=== PATIENT | male | born 1950 | race Two or more races ===

== ENCOUNTER 2017-10-03 17:27 | Emergency (ER) | payer MEDICAID ==
[~2017-10-03] VITALS: Ht 182.9 cm; Wt 81.6 kg
[~2017-10-03 17:27] MED LIST: ACETAMINOP160 MG/54 ORAL; ARTIFICIAL TEAR15 ML BOTH EYES; BISACODYL5 MG RECTAL; CEPHALEXIN500 MG ORAL; CRANBERRY450 M3 PO; DOCUSATE SODIU100 MG ORAL; DOXYCYCLINE MO100 MG ORAL; ENEMA133 M1 RC; ISOSORBIDE MONO60 M1 PO; JANUVIA25 MG ORAL; LANTUS SOL100 UNIT/1 SUBQ; METOPROLOL TART25 MG ORAL; MILK OF MA2400 MG/10 ORAL; MULTIVITAMINS1 EAC8 ORAL; NEXIUM40 MG ORAL; NORCO 5-325 TA1 EACH ORAL; NORVASC10 MG ORAL; OYSTER SHELL 21 EAC1 PO; PRED FORTE1 ML OP; SENNA8.6 M2 PO; VIBRAMYCIN100 MG ORAL; VITAMIN C500 M1 ORAL; ZOFRAN4 M3 ORAL
[2017-10-03 17:33] VITALS: BP 96/50
[2017-10-03 18:26] LABS: HEMATOCRIT 32.4 % (42.0-52.0); HEMOGLOBIN 10.1 G/DL (14.2-18.0); MEAN CORPUSCULAR VOLUME 87 FL (80-99); PLATELET COUNT 227 K/UL (150-450); RED CELL DISTRIBUTION WIDTH 14.2 % (11.6-14.8)
[2017-10-03 18:27] LABS: NEUTROPHILS % (AUTO) 86.4 % (45.0-75.0)
[2017-10-03 18:28] LABS: EOSINOPHILS % (AUTO) 3.2 % (0.0-3.0); MONOCYTES % (AUTO) 3.5 % (1.0-10.0)
[2017-10-03 18:46] LABS: ANION GAP 16 mmol/L (5-15); BLOOD UREA NITROGEN 30 mg/dL (7-18); CALCIUM 7.7 MG/DL (8.5-10.1); CARBON DIOXIDE 13 MMOL/L (21-32); CHLORIDE 109 MMOL/L (98-107); CREATININE 3.6 MG/DL (0.55-1.30); POTASSIUM 4.2 MMOL/L (3.5-5.1); SODIUM 138 MMOL/L (136-145)
[2017-10-03 18:50] VITALS: BP 142/89
[2017-10-03 18:54] LABS: ALANINE AMINOTRANSFERASE 14 U/L (12-78); ALBUMIN 1.8 G/DL (3.4-5.0); ALBUMIN/GLOBULIN RATIO 0.3 (1.0-2.7); ALKALINE PHOSPHATASE 111 U/L (46-116); ASPARTATE AMINO TRANSFERASE 17 U/L (15-37); BILIRUBIN,TOTAL 0.2 MG/DL (0.2-1.0)
[2017-10-03] MEDS ORDERED: levETIRAcetam 500mg/NS100ml 100 ML IVPB ONE (20:00)
[2017-10-03 21:13] VITALS: BP 160/81
[2017-10-03 21:35] VITALS: BP 160/81
--- NOTE | 2017-10-04 08:25 | Diagnostic Imaging Report ---
Indications: Altered mental status Technique: Spiral acquisitions obtained through the brain. Angled axial and coronal 5 x 5 mm slices were reconstructed. Total dose length product 1400.72 mGycm. CTDI vol(s) 70.38 mGy. Dose reduction achieved using automated exposure control Comparison: None. Findings: There is some image degradation due to motion artifact. There is encephalomalacia of the right parasagittal posterior parietal lobe and occipital lobe. There is age-related enlargement of the ventricles and extra-axial CSF spaces. There is periventricular deep white matter low-attenuation, consistent with chronic small vessel ischemic change. Normal paulino-white differentiation otherwise. No acute intracranial hemorrhage or edema. No mass effect or midline shift. There is evidence of prior bilateral cataract surgery. The bilateral sphenoid and ethmoid sinuses demonstrate mucosal thickening. The mastoids are clear. The calvarium is intact. 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 The CT scanner at [facility] is accredited by the [employer] and the scans are performed using protocols designed to limit radiation exposure to as low as reasonably achievable to attain images of sufficient resolution adequate for diagnostic evaluation.
--- NOTE | 2017-10-04 16:06 | Cardiology Report ---
APPROVED REPORT EKG Measurement Heart [id number] Normal sinus rhythm Nonspecific T wave abnormality Prolonged QT Abnormal ECG
--- NOTE | 2017-10-05 07:32 | Emergency Room Report ---
History of Present Illness General Chief Complaint: Seizure Source: Medical Record Present Illness HPI Patient is a 67-year-old male brought in by EMS for seizure activity. Patient a prior history of seizure disorder and CVA. The patient was brought in by EMS. He was given Versed prior to arrival. Patient had previously been on seizure medications. He had not been febrile. History is limited by patient's mental status. Allergies: Coded Allergies: No Known Allergies (Unverified , 09/25/17) Patient History Past Medical History: see triage record Reviewed Nursing Documentation: PMH: Agreed; PSxH: Agreed Nursing Documentation-PMH Past Medical History: No History, Except For Hx Cardiac Problems: Yes - AFIB Hx Hypertension: Yes Hx COPD: Yes Hx Diabetes: Yes Hx Cancer: No Hx Gastrointestinal Problems: Yes - GERD Hx Neurological Problems: No Review of Systems All Other Systems: limited - by poor historian Physical Exam Vital Signs Date Time Temp Pulse Resp B/P (MAP) Pulse Ox O2 Delivery O2 Flow Rate FiO2 10/03/17 17:23 99.3 116 20 133/66 100 Ambu-Bag 15.0 99.3 Sp02 EP Interpretation: reviewed, normal General Appearance: normal inspection, no apparent distress, alert, Chronically Ill Head: atraumatic ENT: normal ENT inspection, hearing grossly normal, normal voice Neck: normal inspection, full range of motion, supple, no bony tend Respiratory: normal inspection, lungs clear, normal breath sounds, no respiratory distress, no retraction, no wheezing Cardiovascular #1: regular rate, rhythm, no edema Gastrointestinal: normal inspection, normal bowel sounds, non tender, soft, no guarding, no hernia Genitourinary: no CVA tenderness Musculoskeletal: normal inspection, back normal, normal range of motion Neurologic: normal inspection, alert, responsive, motor weakness - right upper extremity, right facial droop. Psychiatric: normal inspection, judgement/insight normal, mood/affect normal Skin: normal inspection, normal color, no rash Medical Decision Making Diagnostic Impression: Primary Impression: Epileptic seizure, generalized ER Course Patient presented for seizure. Differential diagnosis included CVA, cysticercosis, electrolyte abnormality, mass lesion, or cranial hemorrhage.Because of complexity of patient's case laboratory testing and imaging studies were ordered. EKG interpreted by me showed normal sinus rhythm without acute ST or T wave changes. QT interval was prolonged. the patient was given IV Keppra. patient gradual improvement in his mental status.Patient was discharged back to [facility]. CT of the head read by radiology showed no acute changes. Nursing staff were advised return precautions. The patient was transferred home by ambulance. Labs Test 10/03/17 17:59 White Blood Count 10.0 K/UL (4.8-10.8) Red Blood Count 3.70 M/UL (4.70-6.10) Hemoglobin 10.1 G/DL (14.2-18.0) Hematocrit 32.4 % (42.0-52.0) Mean Corpuscular Volume 87 FL (80-99) Mean Corpuscular Hemoglobin 27.4 PG (27.0-31.0) Mean Corpuscular Hemoglobin Concent 31.3 G/DL (32.0-36.0) Red Cell Distribution Width 14.2 % (11.6-14.8) Platelet Count 227 K/UL (150-450) Mean Platelet Volume 7.3 FL (6.5-10.1) Neutrophils (%) (Auto) 86.4 % (45.0-75.0) Lymphocytes (%) (Auto) 6.0 % (20.0-45.0) Monocytes (%) (Auto) 3.5 % (1.0-10.0) Eosinophils (%) (Auto) 3.2 % (0.0-3.0) Basophils (%) (Auto) 1.0 % (0.0-2.0) Sodium Level 138 MMOL/L (136-145) Potassium Level 4.2 MMOL/L (3.5-5.1) Chloride Level 109 MMOL/L (98-107) Carbon Dioxide Level 13 MMOL/L (21-32) Anion Gap 16 mmol/L (5-15) Blood Urea Nitrogen 30 mg/dL (7-18) Creatinine 3.6 MG/DL (0.55-1.30) Estimat Glomerular Filtration Rate 17.0 mL/min (>60) Glucose Level 203 MG/DL (74-106) Calcium Level 7.7 MG/DL (8.5-10.1) Total Bilirubin 0.2 MG/DL (0.2-1.0) Aspartate Amino Transf (AST/SGOT) 17 U/L (15-37) Alanine Aminotransferase (ALT/SGPT) 14 U/L (12-78) Alkaline Phosphatase 111 U/L (46-116) Total Protein 7.7 G/DL (6.4-8.2) Albumin 1.8 G/DL (3.4-5.0) Globulin 5.9 g/dL Albumin/Globulin Ratio 0.3 (1.0-2.7) Serum Alcohol < 3 mg/dL Last Vital Signs Date Time Temp Pulse Resp B/P (MAP) Pulse Ox O2 Delivery O2 Flow Rate FiO2 10/03/17 21:35 112 25 160/81 100 Room Air 10/03/17 21:13 99.3 99.3 10/03/17 17:23 15.0 Status: improved Disposition: [facility] Condition: Stable Referrals: NON PHYSICIAN (PCP) Patient Instructions: Seizure, Adult Bryant Srinivasan Oct 05, 2017 07:32
== END 2017-10-03 21:35 ==
LOC: EDBD 17:27 → EMR 18:46
DX: G40.409 Other generalized epilepsy and epileptic syndromes, not intractable, without status epilepticus (principal); J44.9 Chronic obstructive pulmonary disease, unspecified; I48.91 Unspecified atrial fibrillation; I10 Essential (primary) hypertension; K21.9 Gastro-esophageal reflux disease without esophagitis
CPT/HCPCS: 36415; 70450; 80053; 80299; 80329; 82962; 85025; 93005; 96361; 96374; 99284; J1953

== ENCOUNTER 2019-02-05 22:31 | Inpatient (IN) | payer MEDICAID ==
[~2019-02-05] VITALS: Ht 160 cm; Wt 48.6 kg
[2019-02-05 22:45] VITALS: BP 124/70
[2019-02-05] MEDS ORDERED: Albuterol ud Inhalation HHN ONE (22:45)
[2019-02-05] MEDS ORDERED: Ipratropium 0.02% Inh Soln 2.5ml UD HHN ONE (22:45)
[2019-02-05] MEDS ORDERED: Cefepime HCl 2 GM in NS 110 ML IV SCH (22:45)
[2019-02-05] MEDS ORDERED: Solu-MEDROL 125mg Inj IVP ONE (22:45)
[2019-02-05] MEDS ORDERED: Vancomycin 1 GM in NS 275 ML IV ONE (22:45)
--- NOTE | 2019-02-05 22:45 | NUR ---
ED Nurse Note: Patient was BIBA from [facility] due to SOB, resp disstress. Patient arrived with NC, O2 sat was 88%. AAO x4, VSS at this time, skin is dry warm to touch. Patient presented with labored breathing, intercoastal retraction, SOB. ER MD by bed side.
--- NOTE | 2019-02-05 22:55 | NUR ---
RESPIRATORY NOTE: Pt BIBA to ED c/o SOB on 4L NC. Pt placed on BiPAP 10/5, backup rate 14, 40% per MD Fidelia. Pt getting breathing tx at this time. Pt is alert/awake, follows commands. B/S genevieve. expiratory wheezing on lower lobes. Pt on a Facial mask, skin intact, no redness/breakdowns noted. Foam tape applied on pt's nosebridge/cheeks/chin to prevent any mask irritations. BiPAP plugged into red outlet, alarms on & audible. Pt tolerating well, will continue to monitor pt.
[2019-02-05] MEDS: Albuterol ud Inhalation HHN SCH ×3 (23:09→23:47)
[2019-02-05] MEDS: Ipratropium 0.02% Inh Soln 2.5ml UD HHN SCH ×3 (23:09→23:47)
--- NOTE | 2019-02-05 23:24 | Emergency Room Report ---
History of Present Illness General Chief Complaint: Dyspnea/Respdistress Source: Medical Record Present Illness HPI 68-year-old male history of hypertension, hyperlipidemia, diabetes, bilateral amputations, resents with acute shortness of breath, patient was diagnosed with pneumonia in outside hospital patient presents acutely short of breath for the past 3 hours, he denies any aggravating or relieving factors, he is a former smoker patient has difficulty giving a proper history secondary to acute shortness of breath Allergies: Coded Allergies: No Known Allergies (Unverified , 09/25/17) Patient History Limited by: medical condition - Patient is acutely short of breath unable to give full sentences Past Medical History: see triage record Reviewed Nursing Documentation: PMH: Agreed; PSxH: Agreed Nursing Documentation-PMH Hx Cardiac Problems: Yes - AFIB, HEART FAILURE, ANEMIA, ATHEROSCLEROTIC HEART DISEASE, Hx Hypertension: Yes Hx COPD: Yes Hx Diabetes: Yes - DM2 Hx Cancer: No Hx Gastrointestinal Problems: Yes - GERD, ETOH ABUSE Hx Neurological Problems: No - CKD, ARTIFICIAL OPENINGS OF URINARY TRACT Review of Systems All Other Systems: limited - Clinical condition, patient in acute respiratory distress Physical Exam Vital Signs Date Time Temp Pulse Resp B/P (MAP) Pulse Ox O2 Delivery O2 Flow Rate FiO2 02/05/19 22:28 99.0 80 24 124/70 (88) 98 Nasal Cannula 4.0 02/05/19 22:50 40 Sp02 EP Interpretation: reviewed, normal General Appearance: alert, moderate distress Head: normocephalic, atraumatic Eyes: bilateral eye PERRL, bilateral eye EOMI ENT: uvula midline, moist mucus membranes Neck: supple, thyroid normal, supple/symm/no masses Respiratory: accessory muscle use, wheezing - Severe wheezing Cardiovascular #1: normal peripheral pulses, regular rate, rhythm, no edema, no gallop, no murmur Gastrointestinal: non tender, soft, no guarding, no rebound Musculoskeletal: normal inspection Neurologic: alert, oriented x3 Psychiatric: mood/affect normal Skin: no rash, warm/dry Procedures Critical Care Time Critical Care Time Given the critical condition in which the patient arrived, the patient was immediately assessed by myself and the nurse, and cardiac monitoring initiated due to the potential for rapid decompensation of the patient's clinical condition. During the course of the patient's stay, I spent a considerable amount of time at the bedside performing serial re-evaluations of the patient's hemodynamic and clinical status because of the recognized potential threat to life or limb in this condition. I then had a chance to review not only all of the available current laboratory and radiographic studies obtained today, but I also reviewed old records available to me at the time. Additionally, any ancillary information available including blood bank custodian records were reviewed. Sequential vital signs were obtained. Critical Care time of 35 minutes was performed exclusive of billable procedures. Respiratory distress, requiring BiPAP, labs, patient being resuscitated, Medical Decision Making Diagnostic Impression: Primary Impression: Respiratory distress Additional Impressions: COPD with exacerbation Pneumonia MARY (acute kidney injury) Elevated troponin Anemia ER Course 68-year-old male presents in acute respiratory distress, recently diagnosed with pneumonia, patient started immediately on BiPAP for respiratory distress, patient improved, duo nebs were started, due to wheezing, wheezing significantly reduced on reevaluation, broad-spectrum antibiotics were started, he is coming from a skilled nursing, patient also found to have a hemoglobin of 6.4 , blood transfusion consent obtained, will send a type and screen, will start transfusion, patient makes his own urine patient may need dialysis in the future. Evaluation 11:45 PM, patient feeling better on BiPAP Patient admitted to Dr. Noriega on panel Blood transfusion started Laboratory Tests Test 02/05/19 23:10 02/05/19 23:50 02/06/19 00:37 White Blood Count 14.4 K/UL (4.8-10.8) H Red Blood Count 2.27 M/UL (4.70-6.10) L Hemoglobin 6.4 G/DL (14.2-18.0) *L Hematocrit 19.4 % (42.0-52.0) L Mean Corpuscular Volume 86 FL (80-99) Mean Corpuscular Hemoglobin 28.0 PG (27.0-31.0) Mean Corpuscular Hemoglobin Concent 32.8 G/DL (32.0-36.0) Red Cell Distribution Width 14.2 % (11.6-14.8) Platelet Count 195 K/UL (150-450) Mean Platelet Volume 7.6 FL (6.5-10.1) Neutrophils (%) (Auto) % (45.0-75.0) Lymphocytes (%) (Auto) % (20.0-45.0) Monocytes (%) (Auto) % (1.0-10.0) Eosinophils (%) (Auto) % (0.0-3.0) Basophils (%) (Auto) % (0.0-2.0) Prothrombin Time 11.2 SEC (9.30-11.50) Prothrombin Time INR 1.1 (0.9-1.1) PTT 32 SEC (23-33) Urine Color Pale yellow Urine Appearance Clear Urine pH 5 (4.5-8.0) Urine Specific [place] 1.015 (1.005-1.035) Urine Protein 4+ (NEGATIVE) H Urine Glucose (UA) 3+ (NEGATIVE) H Urine Ketones Negative (NEGATIVE) Urine Blood 3+ (NEGATIVE) H Urine Nitrite Negative (NEGATIVE) Urine Bilirubin Negative (NEGATIVE) Urine Urobilinogen Normal MG/DL (0.0-1.0) Urine Leukocyte Esterase Negative (NEGATIVE) Urine RBC 5-10 /HPF (0 - 0) H Urine WBC 0-2 /HPF (0 - 0) Urine Squamous Epithelial Cells None /LPF (NONE/OCC) Urine Bacteria Few /HPF (NONE) Sodium Level 145 MMOL/L (136-145) Potassium Level 3.9 MMOL/L (3.5-5.1) Chloride Level 110 MMOL/L (98-107) H Carbon Dioxide Level 10 MMOL/L (21-32) L Anion Gap 25 mmol/L (5-15) H Blood Urea Nitrogen 95 mg/dL (7-18) H Creatinine 9.3 MG/DL (0.55-1.30) H Estimate Glomerular Filtration Rate 5.7 mL/min (>60) Glucose Level 121 MG/DL (74-106) H Lactic Acid Level 2.60 mmol/L (0.4-2.0) H Pending Calcium Level 7.6 MG/DL (8.5-10.1) L Total Bilirubin 0.7 MG/DL (0.2-1.0) Direct Bilirubin 0.2 MG/DL (0.0-0.3) Aspartate Amino Transferase (AST) 51 U/L (15-37) H Alanine Aminotransferase (ALT) 42 U/L (12-78) Alkaline Phosphatase 133 U/L (46-116) H Total Creatine Kinase 245 U/L (26-308) Creatine Kinase MB 9.6 NG/ML (0.0-3.6) H Creatine Kinase MB Relative Index 3.9 Troponin I 0.238 ng/mL (0.000-0.056) Pro-B-Type Natriuretic Peptide > 53155 pg/mL (0-125) H Total Protein 7.5 G/DL (6.4-8.2) Albumin 2.8 G/DL (3.4-5.0) L Globulin 4.7 g/dL Albumin/Globulin Ratio 0.6 (1.0-2.7) L Lipase 374 U/L (73-393) Venous Blood pH 7.160 Venous Blood Partial Pressure CO2 22.6 Venous Blood Partial Pressure O2 43.9 Venous Blood HCO3 7.9 Venous Blood Total Carbon Dioxide 22.6 Venous Bld O2 Saturation (Measured) 43.9 Venous Blood Oxygen Saturation 65.3 Venous Blood Base Excess -19.1 Methemoglobin 1.0 Sodium (Blood Gas) EKG Diagnostic Results EKG Time: 22:30 EP Interpretation: NSR Rate 81, QTc 490, no acute ST elevations, left axis deviation Rate: normal Rhythm: NSR ST Segments: no acute changes Rhythm Strip Diag. Results Rhythm Strip Time: 23:23 EP Interpretation: yes Rate: 80 Rhythm: NSR, no PVC's, no ectopy Chest X-Ray Diagnostic Results Chest X-Ray Diagnostic Results : Chest X-Ray Ordered: Yes # of Views/Limited/Complete: 1 View Indication: Shortness of Breath Interpretation: other - Right lobe pneumonia Impression: Other - Right lobe pneumonia Electronically Signed by: Lavon Mistry MD Last Vital Signs Date Time Temp Pulse Resp B/P (MAP) Pulse Ox O2 Delivery O2 Flow Rate FiO2 02/05/19 23:09 79 23 100 Bi-Pap 30 02/05/19 22:50 4.0 02/05/19 22:28 99.0 124/70 (88) Disposition: ADMITTED INPATIENT Condition: Serious Referrals: Grzegorz Choi MD (PCP) Lavon Mistry MD Feb 05, 2019 23:24
[2019-02-05 23:31] LABS: APPEARANCE,URINE CLEAR; BILIRUBIN, URINE NEGATIVE (NEGATIVE); COLOR,URINE PALE YELLOW; GLUCOSE, URINE (UA) 3+ (NEGATIVE); KETONES,URINE NEGATIVE (NEGATIVE); LEUKOCYTE ESTERASE ,URINE NEGATIVE (NEGATIVE); NITRITE,URINE NEGATIVE (NEGATIVE); PH,URINE 5 (4.5-8.0); PROTEIN,URINE 4+ (NEGATIVE); UROBILINOGEN,URINE NORMAL MG/DL (0.0-1.0)
[2019-02-05 23:37] LABS: ANION GAP 25 mmol/L (5-15); BLOOD UREA NITROGEN 95 mg/dL (7-18); CALCIUM 7.6 MG/DL (8.5-10.1); CARBON DIOXIDE 10 MMOL/L (21-32); CHLORIDE 110 MMOL/L (98-107); CREATININE 9.3 MG/DL (0.55-1.30); POTASSIUM 3.9 MMOL/L (3.5-5.1); SODIUM 145 MMOL/L (136-145)
[2019-02-05 23:40] LABS: INR 1.1 (0.9-1.1)
[2019-02-05] MEDS ORDERED: Vancomycin 1 GM in NS 275 ML IVPB ONE (23:45)
[2019-02-05 23:49] LABS: ALANINE AMINOTRANSFERASE 42 U/L (12-78); ALBUMIN 2.8 G/DL (3.4-5.0); ALBUMIN/GLOBULIN RATIO 0.6 (1.0-2.7); ALKALINE PHOSPHATASE 133 U/L (46-116); ASPARTATE AMINO TRANSFERASE 51 U/L (15-37); BILIRUBIN,DIRECT 0.2 MG/DL (0.0-0.3); BILIRUBIN,TOTAL 0.7 MG/DL (0.2-1.0); CKMB 9.6 NG/ML (0.0-3.6); CREATINE KINASE 245 U/L (26-308)
[2019-02-05 23:53] LABS: HEMATOCRIT 19.4 % (42.0-52.0); MEAN CORPUSCULAR VOLUME 86 FL (80-99); PLATELET COUNT 195 K/UL (150-450); RED BLOOD COUNT 2.27 M/UL (4.70-6.10); RED CELL DISTRIBUTION WIDTH 14.2 % (11.6-14.8); WHITE BLOOD COUNT 14.4 K/UL (4.8-10.8)
[2019-02-06] VITALS (62 sets, daily range): BP systolic 35–162; BP diastolic 12–116
[2019-02-06] MEDS ORDERED: Vancomycin 1gm vial IVPB ONE (00:06)
[2019-02-06] MEDS ORDERED: Vancomycin 1 GM in NS 275 ML IVPB ONE (00:15)
[2019-02-06 00:16] LABS: HEMOGLOBIN 6.4 G/DL (14.2-18.0)
[2019-02-06] MEDS ORDERED: ATROPINE SU1 MG/1 M1 IJ (01:24)
[2019-02-06] MEDS ORDERED: ATORVASTATIN CA10 MG ORAL (01:24)
[2019-02-06] MEDS ORDERED: ATARAX25 MG ORAL (01:24)
--- NOTE | 2019-02-06 01:25 | NUR ---
ED Nurse Note: Patient suddenly become unresponsive, CPR was started at 0125. During CPR 1x bicarb, 2x Epi were given. After 2 dose of Epi pt got a pulse, HR was 140.
--- NOTE | 2019-02-06 01:34 | NUR ---
ED Nurse Note: Patient was intubated at 0134 after 20 mg Etomidate and 100 mg Succinylcholine were given.
--- NOTE | 2019-02-06 01:38 | NUR ---
RESPIRATORY NOTE: Tiffany MARTINEZ called for this pt at 0127 (see code sheet). Pt intubated by MD Fidelia at 0134 w/ ETT 7.5 @ 23cm lipline, secured by anchorfast. Pt placed on ventilator w/ settings: AC 14, 420VT, 100%, PEEP +5. Pt obtunded. B/S genevieve. diminished, nonproductive cough, occasionally sxn scant amounts of thin, bloody secretions. Vent plugged into red outlet, ambubag at bedside. Pt in no apparent distress at this time. Will continue to monitor pt.
--- NOTE | 2019-02-06 01:42 | Emergency Room Report ---
History of Present Illness General Chief Complaint: Dyspnea/Respdistress Source: Medical Record Present Illness HPI 68-year-old male presents with acute respiratory distress, initially was to go to the stepdown was improving however patient became acutely dyspneic, was fighting the BiPAP, patient then lost pulses Allergies: Coded Allergies: No Known Allergies (Unverified , 09/25/17) Patient History Limited by: medical condition - Patient coding Past Medical History: see triage record Reviewed Nursing Documentation: PMH: Agreed; PSxH: Agreed Nursing Documentation-PMH Hx Cardiac Problems: Yes - AFIB, HEART FAILURE, ANEMIA, ATHEROSCLEROTIC HEART DISEASE, Hx Hypertension: Yes Hx COPD: Yes Hx Diabetes: Yes - DM2 Hx Cancer: No Hx Gastrointestinal Problems: Yes - GERD, ETOH ABUSE Hx Neurological Problems: No - CKD, ARTIFICIAL OPENINGS OF URINARY TRACT Review of Systems All Other Systems: limited - Patient coding Physical Exam Vital Signs Date Time Temp Pulse Resp B/P (MAP) Pulse Ox O2 Delivery O2 Flow Rate FiO2 02/05/19 22:28 99.0 80 24 124/70 (88) 98 Nasal Cannula 4.0 02/05/19 22:50 40 General Appearance: alert, severe distress Eyes: bilateral eye normal inspection, bilateral eye PERRL ENT: uvula midline, moist mucus membranes Neck: supple Respiratory: respiratory distress, crackles Cardiovascular #1: tachycardia Procedures Central Line Central Line : Consent: Emergent Central Line Lumen: triple Maximal Sterile Barrier Tech: yes cap, yes mask, yes sterile gown, yes sterile gloves, yes large sterile sheet, yes hand hygiene, yes chlorhexidine prep No Max Barrier Tech Because: emergency insertion Central Line Postion: femoral (L) Anesthesia: Lidocaine cc's of anesthesia: 5 Complications: none Central Line Post Position: sutured, good blood return Attempts: One Patient Tolerated: Well Complications: None CPR/Code Blue CPR/Code Blue Narrative CPR conducted for 5 minutes, patient received 1 epinephrine, 1 bicarb, ROSC was achieved Intubation Intubation : Consent: Emergent Time of Intubation: 01:32 Intubation Method: orotracheal Tube Size (cm): 7.5 Medications: Etomidate, Succinylcholine Breath Sounds after Intubation: equal Intubation Complications: no complications Post Intubation Xray: Yes Progress/Xray Impression: Endotracheal tube well-seated, again recurrent pneumonia Attempts: One Complications: None Medical Decision Making Diagnostic Impression: Primary Impression: Respiratory distress Additional Impressions: Anemia Elevated troponin MARY (acute kidney injury) Pneumonia COPD with exacerbation ARDS (adult respiratory distress syndrome) ER Course Patient began fighting, patient was attempting to remove the BiPAP, patient then coded, patient was resuscitated, ROSC was achieved, patient was emergently intubated, patient was upgraded to the ICU, Patient went into respiratory distress syndrome, vent settings per ARDS NET protocol, patient most likely was septic went into septic shock then with respiratory failure with ARDS Lasix given Patient admitted to ICU Laboratory Tests Test 02/05/19 23:10 02/05/19 23:50 02/06/19 00:37 02/06/19 01:58 White Blood Count 14.4 K/UL (4.8-10.8) H Red Blood Count 2.27 M/UL (4.70-6.10) L Hemoglobin 6.4 G/DL (14.2-18.0) *L Hematocrit 19.4 % (42.0-52.0) L Mean Corpuscular Volume 86 FL (80-99) Mean Corpuscular Hemoglobin 28.0 PG (27.0-31.0) Mean Corpuscular Hemoglobin Concent 32.8 G/DL (32.0-36.0) Red Cell Distribution Width 14.2 % (11.6-14.8) Platelet Count 195 K/UL (150-450) Mean Platelet Volume 7.6 FL (6.5-10.1) Neutrophils (%) (Auto) % (45.0-75.0) Lymphocytes (%) (Auto) % (20.0-45.0) Monocytes (%) (Auto) % (1.0-10.0) Eosinophils (%) (Auto) % (0.0-3.0) Basophils (%) (Auto) % (0.0-2.0) Prothrombin Time 11.2 SEC (9.30-11.50) Prothrombin Time INR 1.1 (0.9-1.1) PTT 32 SEC (23-33) Urine Color Pale yellow Urine Appearance Clear Urine pH 5 (4.5-8.0) Urine Specific [place] 1.015 (1.005-1.035) Urine Protein 4+ (NEGATIVE) H Urine Glucose (UA) 3+ (NEGATIVE) H Urine Ketones Negative (NEGATIVE) Urine Blood 3+ (NEGATIVE) H Urine Nitrite Negative (NEGATIVE) Urine Bilirubin Negative (NEGATIVE) Urine Urobilinogen Normal MG/DL (0.0-1.0) Urine Leukocyte Esterase Negative (NEGATIVE) Urine RBC 5-10 /HPF (0 - 0) H Urine WBC 0-2 /HPF (0 - 0) Urine Squamous Epithelial Cells None /LPF (NONE/OCC) Urine Bacteria Few /HPF (NONE) Sodium Level 145 MMOL/L (136-145) Potassium Level 3.9 MMOL/L (3.5-5.1) Chloride Level 110 MMOL/L (98-107) H Carbon Dioxide Level 10 MMOL/L (21-32) L Anion Gap 25 mmol/L (5-15) H Blood Urea Nitrogen 95 mg/dL (7-18) H Creatinine 9.3 MG/DL (0.55-1.30) H Estimate Glomerular Filtration Rate 5.7 mL/min (>60) Glucose Level 121 MG/DL (74-106) H Lactic Acid Level 2.60 mmol/L (0.4-2.0) H 1.60 mmol/L (0.66-2.22) Calcium Level 7.6 MG/DL (8.5-10.1) L Total Bilirubin 0.7 MG/DL (0.2-1.0) Direct Bilirubin 0.2 MG/DL (0.0-0.3) Aspartate Amino Transferase (AST) 51 U/L (15-37) H Alanine Aminotransferase (ALT) 42 U/L (12-78) Alkaline Phosphatase 133 U/L (46-116) H Total Creatine Kinase 245 U/L (26-308) Creatine Kinase MB 9.6 NG/ML (0.0-3.6) H Creatine Kinase MB Relative Index 3.9 Troponin I 0.238 ng/mL (0.000-0.056) Pro-B-Type Natriuretic Peptide > 71963 pg/mL (0-125) H Total Protein 7.5 G/DL (6.4-8.2) Albumin 2.8 G/DL (3.4-5.0) L Globulin 4.7 g/dL Albumin/Globulin Ratio 0.6 (1.0-2.7) L Lipase 374 U/L (73-393) Venous Blood pH 7.160 Venous Blood Partial Pressure CO2 22.6 Venous Blood Partial Pressure O2 43.9 Venous Blood HCO3 7.9 Venous Blood Total Carbon Dioxide 22.6 Venous Bld O2 Saturation (Measured) 43.9 Venous Blood Oxygen Saturation 65.3 Venous Blood Base Excess -19.1 Methemoglobin 1.0 Sodium (Blood Gas) Triglycerides Level 84 MG/DL (30-150) Chest X-Ray Diagnostic Results Chest X-Ray Diagnostic Results : Chest X-Ray Ordered: Yes # of Views/Limited/Complete: 1 View Indication: Shortness of Breath EP Interpretation: Yes Interpretation: other - pneumonia, worsening bilateral infiltrates Impression: Other - ETT in place, pneumonia present, worsening bilateral infiltrates Electronically Signed by: Lavon Mistry MD Other X-Ray Diagnostic Results Other X-Ray Diagnostic Results : X-Ray ordered: KUB # of Views/Limited Vs Complete: 1 View Indication: Other - Status post OG placement EP Interpretation: Yes Interpretation: other - OG in place Impression: Other - OG in place Electronically Signed by: Lavon Mistry MD Last Vital Signs Date Time Temp Pulse Resp B/P (MAP) Pulse Ox O2 Delivery O2 Flow Rate FiO2 02/06/19 00:39 81 19 97 Facial 30 02/05/19 22:50 4.0 02/05/19 22:28 99.0 124/70 (88) Disposition: ADMITTED INPATIENT Condition: Serious Referrals: Grzegorz Choi MD (PCP) Lavon Mistry MD Feb 06, 2019 01:42
[2019-02-06] MEDS ORDERED: Succinylcholine 20mg/ml 10ml vial IV ONE (01:45)
[2019-02-06] MEDS ORDERED: Etomidate 40mg/20ml Inj IV ONE (01:45)
--- NOTE | 2019-02-06 02:02 | NUR ---
RESPIRATORY NOTE: PEEP increased to +10 per MD Fidelia due to pt desaturation. SpO2 between 81%-85%. Will continue to monitor pt.
--- NOTE | 2019-02-06 02:55 | NUR ---
RESPIRATORY NOTE: Called to ED to check pt as he tends to desat again. MD Fidelia already increased PEEP to +15, spO2 still between 69%-73%. Vent settings now changed to AC 14, 360VT, 100%, PEEP +17. Pt tolerating well. SpO2 now between 89%-94%. Will continue to monitor pt.
--- NOTE | 2019-02-06 03:15 | NUR ---
ED Nurse Note: Blod transfusion was started at 0315, no Blood transfusion reaction noticed.
--- NOTE | 2019-02-06 03:30 | NUR ---
ED Nurse Note: 15 min pass after blood transfusion was started, no blood transfusion reaction was noticed.
--- NOTE | 2019-02-06 03:45 | NUR ---
ED Nurse Note: Patient was admited to ICU due to resp disstress. Patient was transfered to the unit via gurney, by ACLS protocol, with all belongings. Patient was transfered with blood at the rate 150 mL/hr and Propofol at 5 mcg/kg/min running.
--- NOTE | 2019-02-06 04:10 | NUR ---
NURSE NOTES: Patient received from [facility]. Patient is currently ventilated with ETT 7.5 and 23cm at the lower lip. AC 20, 350tv, 100% Fio2 and peep of 17. Patient has suprapubic catheter. R femoral TLC running PRBC and NS. Patient has no wounds other than a healed sacral scar. Patient is still sedated from meds given in ER. Pupils reactive to light. 110/65, SpO2 96%, HR 68 SR 96.8F.
--- NOTE | 2019-02-06 04:11 | NUR ---
NURSE NOTES: Patient came in with Diprivan from ER. Diprivan discontinued and wasted appropriately.
--- NOTE | 2019-02-06 04:15 | NUR ---
NURSE NOTES: Called Dr. Noriega and left message regarding admission orders.
--- NOTE | 2019-02-06 04:26 | NUR ---
NURSE NOTES: Belongings Patient came in with Jacket, 1 pack of ciggarrets and 1 shipping weigher, and empty black hand bag.
--- NOTE | 2019-02-06 05:32 | NUR ---
NURSE NOTES: Dr. Noriega called back with admission orders.
[2019-02-06] MEDS ORDERED: Sodium Bicarbonate 50ml Carp IV ONE ×2 (05:45→05:47)
[2019-02-06] MEDS ORDERED: Piperacillin/Tazobactam 3.375 GM in NS 110 ML IVPB SCH ×2 (06:00→07:00)
--- NOTE | 2019-02-06 06:00 | NUR ---
NURSE NOTES: Patient very agitated and fighting the ventilator. Titrating propofol by 5mcg until reached -2 RASS
--- NOTE | 2019-02-06 06:30 | NUR ---
RESPIRATORY NOTE: Received pt on AC 26-500ml- 1000%FiO2- peep 15. Pt was orally intubated with ETT 7.5 @ 23cm lips line, secure by anchor fast. Ghanshyam diminished breath sounds heard upon auscultation, suctioned minimal amounts of thin red bloody secretions without incidents. Pt is sleeping,sedated, no SOB or resp distress noted. Alarms are set and audible, vent is plugged into the red outlet, ambu bag is at bedside. Vent circuits and suction tubing are patent, secured and out of the way. Will continue to monitor Addendum: 02/06/19 at 0901 by Jesenia Cooper RT ABG done and reported to YU Banegas. Awaiting for MD's order.
--- NOTE | 2019-02-06 06:31 | NUR ---
NURSE NOTES: [facility] called to let me know they will dose Zosyn because of elevated renal labs readings.
--- NOTE | 2019-02-06 06:40 | NUR ---
NURSE NOTES: Called Dr. Noriega and read him the new ABG results. per the results, he ordered 2 more amps of bicarb and titrate FiO2 to 80%.
[2019-02-06] MEDS ORDERED: Sodium Bicarbonate 50ml Carp IV SCH ×2 (06:45→06:46)
--- NOTE | 2019-02-06 07:00 | NUR ---
HAND-OFF: Report given to Saurabh NICHOLAS.
--- NOTE | 2019-02-06 07:01 | NUR ---
NURSE NOTES: RECEIVED PATIENT FROM Crystal COOPER RN. PATIENT IS SEDATED ON PROPOFOL DRIP FOLLOWING HOSPITAL PROTOCOL. ON PROFESSOR OF MARKETING, HR OF 77. ORALLY INTUBATED. ETT 7.5 AT 23CM LIP LINE. VENT SETTINGS OF AC 26, TV 500, FiO2 80%, PEEP 15. NO SIGS OF CARDIO OR RESPI DISTRESS OF THE MOMENT. NOTED OGT BUT NPO FOR NOW. NOTED BW RESTRAINTS, NOTED TO BE PULLING OFF OBJECTS. WITH SUPRAPUBIC CATH, CONNECTED TO BAG PATENT AND DRAINING YELLOW URINE. SKIN IS INTACT. NOTED BKA. IV ON R FA G20, SL, TLC ON L FEMORAL WITH PROPOFOL RUNNING FOLLOWING HOSPITAL PROTOCOL. HOB ELEVATED. CALL LIGHT WITHIN REACH. BED AT LOWEST POSITION. SIDE RAILS UP. WILL CONTINUE TO MONITOR. Addendum: 02/06/19 at 0725 by ONIEL HILL RN NURSE NOTES: IVF RUNNING NS AT 100ML/HR.
--- NOTE | 2019-02-06 07:17 | History & Physical ---
History and Physical History & Physicial History and Physical HPI Patient is a 68-year-old male history of COPD, CAD, afib, hypertension, hyperlipidemia, diabetes, bilateral amputations, CKD, Anemia, presented with acute shortness of breath, patient was diagnosed with pneumonia in outside hospital previously. He complained of acute shortness of breath for 3 hours. Patient is a former smoker. Patient coded in the ED, intubated and placed on Mechanical Ventilation. Noted to have severe anemia, evidence of Renal Failure, elevated Troponin. Allergies: No Known Allergies Past Medical History: Congestive Heart Failure, Atrial Fibrillation, Chronic Kidney Disease, Coronary Artery Disease, Chronic Obstructive Pulmonary Disease, Hypertension, Hyperlipidemia, Diabetes, Bilateral amputations, GERD, ETOH abuse All Other Systems: NA Physical Exam Vital Signs Noted General Appearance: Deadted, on Mechanical Ventilator Head: normocephalic, atraumatic, ETT, OGT Eyes: bilateral eye PERRL, bilateral eye EOMI ENT: uvula midline, moist mucus membranes Neck: supple, thyroid normal, supple/symm/no masses Respiratory: Bilateral wheezing, rhonchi, BS equal bilaterally Cardiovascular: normal heart sound, normal peripheral pulses, regular rate, rhythm, no edema, no gallop, no murmur Gastrointestinal: non tender, soft, no guarding, no rebound Musculoskeletal: normal inspection Neurologic: sedated, no focal signs Skin: no rash, warm/dry Impression: Respiratory distress Chronic Obstructive Pulmonary Disease with exacerbation Pneumonia Acute kidney injury, h/o Chronic Kidney Disease Elevated troponin Anemia Congestive Heart Failure Previous Atrial Fibrillation Coronary Artery Disease Hypertension Hyperlipidemia Diabetes Bilateral amputations GERD ETOH abuse Plan AC Mechanical Ventilation IV Antibiotics HHN ISS Monitor labs LE dupplex - SCD if negative Transfuse PRN Protonix Cardiology and Renal Consultation ASA PPX: SQH Laboratory Tests Test 02/05/19 23:10 02/05/19 23:50 02/06/19 00:37 White Blood Count 14.4 K/UL (4.8-10.8) H Red Blood Count 2.27 M/UL (4.70-6.10) L Hemoglobin 6.4 G/DL (14.2-18.0) *L Hematocrit 19.4 % (42.0-52.0) L Mean Corpuscular Volume 86 FL (80-99) Mean Corpuscular Hemoglobin 28.0 PG (27.0-31.0) Mean Corpuscular Hemoglobin Concent 32.8 G/DL (32.0-36.0) Red Cell Distribution Width 14.2 % (11.6-14.8) Platelet Count 195 K/UL (150-450) Mean Platelet Volume 7.6 FL (6.5-10.1) Neutrophils (%) (Auto) % (45.0-75.0) Lymphocytes (%) (Auto) % (20.0-45.0) Monocytes (%) (Auto) % (1.0-10.0) Eosinophils (%) (Auto) % (0.0-3.0) Basophils (%) (Auto) % (0.0-2.0) Prothrombin Time 11.2 SEC (9.30-11.50) Prothrombin Time INR 1.1 (0.9-1.1) PTT 32 SEC (23-33) Urine Color Pale yellow Urine Appearance Clear Urine pH 5 (4.5-8.0) Urine Specific [place] 1.015 (1.005-1.035) Urine Protein 4+ (NEGATIVE) H Urine Glucose (UA) 3+ (NEGATIVE) H Urine Ketones Negative (NEGATIVE) Urine Blood 3+ (NEGATIVE) H Urine Nitrite Negative (NEGATIVE) Urine Bilirubin Negative (NEGATIVE) Urine Urobilinogen Normal MG/DL (0.0-1.0) Urine Leukocyte Esterase Negative (NEGATIVE) Urine RBC 5-10 /HPF (0 - 0) H Urine WBC 0-2 /HPF (0 - 0) Urine Squamous Epithelial Cells None /LPF (NONE/OCC) Urine Bacteria Few /HPF (NONE) Sodium Level 145 MMOL/L (136-145) Potassium Level 3.9 MMOL/L (3.5-5.1) Chloride Level 110 MMOL/L (98-107) H Carbon Dioxide Level 10 MMOL/L (21-32) L Anion Gap 25 mmol/L (5-15) H Blood Urea Nitrogen 95 mg/dL (7-18) H Creatinine 9.3 MG/DL (0.55-1.30) H Estimate Glomerular Filtration Rate 5.7 mL/min (>60) Glucose Level 121 MG/DL (74-106) H Lactic Acid Level 2.60 mmol/L (0.4-2.0) H Pending Calcium Level 7.6 MG/DL (8.5-10.1) L Total Bilirubin 0.7 MG/DL (0.2-1.0) Direct Bilirubin 0.2 MG/DL (0.0-0.3) Aspartate Amino Transferase (AST) 51 U/L (15-37) H Alanine Aminotransferase (ALT) 42 U/L (12-78) Alkaline Phosphatase 133 U/L (46-116) H Total Creatine Kinase 245 U/L (26-308) Creatine Kinase MB 9.6 NG/ML (0.0-3.6) H Creatine Kinase MB Relative Index 3.9 Troponin I 0.238 ng/mL (0.000-0.056) Pro-B-Type Natriuretic Peptide > 83487 pg/mL (0-125) H Total Protein 7.5 G/DL (6.4-8.2) Albumin 2.8 G/DL (3.4-5.0) L Globulin 4.7 g/dL Albumin/Globulin Ratio 0.6 (1.0-2.7) L Lipase 374 U/L (73-393) Venous Blood pH 7.160 Venous Blood Partial Pressure CO2 22.6 Venous Blood Partial Pressure O2 43.9 Venous Blood HCO3 7.9 Venous Blood Total Carbon Dioxide 22.6 Venous Bld O2 Saturation (Measured) 43.9 Venous Blood Oxygen Saturation 65.3 Venous Blood Base Excess -19.1 Methemoglobin 1.0 Sodium (Blood Gas) EKG: NSR Rate 81, QTc 490, no acute ST elevations, left axis deviation, no acute changes Chest X-Ray: Right lobe pneumonia, subsequent CXR bilateral infiltrates, ETT/ OGT well positioned Jamari Chambers MD Feb 06, 2019 07:17
--- NOTE | 2019-02-06 07:25 | NUR ---
RADIOLOGY DEPT, CHEST X-RAY DONE @ 01:47HRS BY THOMAS YANES
[2019-02-06 08:14] LABS: HEMATOCRIT 22.5 % (42.0-52.0); HEMOGLOBIN 7.2 G/DL (14.2-18.0); MEAN CORPUSCULAR VOLUME 90 FL (80-99); PLATELET COUNT 153 K/UL (150-450); RED CELL DISTRIBUTION WIDTH 14.3 % (11.6-14.8); WHITE BLOOD COUNT 18.3 K/UL (4.8-10.8)
[2019-02-06] MEDS: Heparin 5000 units/ml inj SUBQ SCH ×2 (08:16→21:04)
--- NOTE | 2019-02-06 08:20 | NUR ---
RESPIRATORY NOTE: ABG done and reported to YU Wiley, awaiting for MD's order regarding ABG result. Will continue to monitor pt in the mean time.
--- NOTE | 2019-02-06 08:34 | NUR ---
NURSE NOTES: DR SOUSA MADE AWARE OF THE ABG RESULT AND H/H OF PT. AWAITING FOR CALL BACK. WILL CONTINUE TO MONITOR.
[2019-02-06 08:39] LABS: ALANINE AMINOTRANSFERASE 251 U/L (12-78); ALBUMIN 2.1 G/DL (3.4-5.0); ALBUMIN/GLOBULIN RATIO 0.6 (1.0-2.7); ALKALINE PHOSPHATASE 118 U/L (46-116); ANION GAP 20 mmol/L (5-15); ASPARTATE AMINO TRANSFERASE 549 U/L (15-37); BLOOD UREA NITROGEN 94 mg/dL (7-18); CALCIUM 6.4 MG/DL (8.5-10.1); CARBON DIOXIDE 16 MMOL/L (21-32); CHLORIDE 117 MMOL/L (98-107); CREATININE 8.5 MG/DL (0.55-1.30); POTASSIUM 3.7 MMOL/L (3.5-5.1); SODIUM 152 MMOL/L (136-145)
--- NOTE | 2019-02-06 08:47 | NUR ---
NURSE NOTES: NEW ORDERS RECEIVED FROM DR SOUSA. NO CHANGES FOR VENT SETTINGS. WILL CONTINUE TO MONITOR.
--- NOTE | 2019-02-06 08:54 | NUR ---
CASE MANAGEMENT:REVIEW 68 YR OLD MALE BIBA FROM [facility] PMH: DIAGNOSED WITH PNEUMONIA 3 DAYS AGO CC: SOB SI: PNEUMONIA. COPD.ELEVATED TROPONIN. ANEMIA 95.4 114 24 124/70 88% ON 2L/NC WBC+14.4 H/H-6.4/19.4 BUN+95 CR+9.3 CA-7.6 TROPONIN(+) 0.238 PH-6.89 PCO2-28.0 P02-72.5 HCO3-8.2 IS: PLACED ON BIPAP--->INTUBATED DUONEB HHN X3 IV CEFEPIME 1L NS BOLUS IV VANCOMYCIN IV SOLUMEDROL TRANSFUSE 2 UNIT PRBC'S : TO ICU INTERQUAL CRITERIA MET
--- NOTE | 2019-02-06 08:55 | NUR ---
RESPIRATORY NOTE: YU Wiley inform that no new order for pt for now per Dr. Noriega's order. One more ABG order at 1200 pm. Will continue to monitor pt.
--- NOTE | 2019-02-06 09:36 | NUR ---
NURSE NOTES: CONFIRMED OGT PLACEMENT FROM DR BOWLES, RADIOLOGIST. WILL CONTINUE TO MONITOR.
--- NOTE | 2019-02-06 09:42 | Diagnostic Imaging Report ---
Indication: NG tube placement Comparison: None Single view of the abdomen obtained Findings: NG tube is in good position in the upper abdomen. The tip and proximal port are both within the stomach lumen. Bowel gas pattern is nonspecific. Bones are osteopenic. Extensive vascular calcification noted. IMPRESSION: NG tube in good position
--- NOTE | 2019-02-06 10:30 | NUR ---
NURSE NOTES: SEEN AND EXAMINIED BY DR CARRANZA AND NEW ORDERS MADE AND CARRIED OUT. ADJUSTED VENT SETTINGS AND INFORMED RT ON NEW VENT SETTINGS, TOLERATED AND SATING AT 100%. NO SIGNS OF CARDIO OR RESPI DISTRESS OF THE MOMENT. WILL CONTINUE TO MONITOR.
--- NOTE | 2019-02-06 10:30 | NUR ---
RESPIRATORY NOTE: Dr. Chambers changed pt's vent settings to AC 26-550ml- 50%FiO2- peep 12.Pt is tolerating well the new settings, no SOB or resp distress noted. ABG in 2 hours ( 1230pm). Per Dr. Chambers's order, if Saturation above 90% at 1600pm, decrease Peep to 10. Will continue to monitor pt. YU arceo.
--- NOTE | 2019-02-06 10:36 | Diagnostic Imaging Report ---
Indication: Dyspnea Comparison: 01/09/2019 A single view chest radiograph was obtained. Findings: Endotracheal tube is just above the concetta pointed toward the right mainstem bronchus. There is severe worsening bilateral airspace disease. Heart is enlarged. NG tube is in good position. IMPRESSION: Endotracheal tube just above the concetta. Extensive worsening airspace disease.
--- NOTE | 2019-02-06 10:52 | Diagnostic Imaging Report ---
Indication: Dyspnea Comparison: None A single view chest radiograph was obtained. Findings: There is enlargement of the cardiac silhouette with pulmonary vascular redistribution and prominence, hazy vessel margins and the suggestion of interstitial edema consistent with CHF. Bones are osteopenic. Aorta is mildly calcified. IMPRESSION: Pulmonary vascular congestion
--- NOTE | 2019-02-06 11:05 | NUR ---
Social Work This SW met with patient who is currently in the ICU, sedated/intubated, unable to verbalize any decision making at this time. Patient is [facility] and has a POLST in chart requesting full code, full treatment. This SW spoke with Medical Records, Kate who explains patient does not have any family or decision maker listed (patient was making all of his own decisions). Bioethics to follow for any end of life decision making. Doctor to consent for any further treatments or procedures, as needed. ICU nursing informed
[2019-02-06] MEDS ORDERED: D5 1/2NS 1,000 ML IV SCH (11:30)
[2019-02-06] MEDS ORDERED: Heparin1,000 units/500ml Premix(Conc:2 units/ml) IV SCH (11:30)
[2019-02-06] MEDS ORDERED: Lidocaine 1% Plain 30 ml INJ SCH (11:30)
--- NOTE | 2019-02-06 11:31 | NUR ---
NURSE NOTES: SEEN AND EXAMINED BY DR PATHAK. WILL CONTINUE TO MONITOR.
--- NOTE | 2019-02-06 11:37 | Nephrology Progress Note ---
Subjective Subjective Patient has no family or DPOA. Needs Perma Cath for HD and PICC TAE. Pt. needs soft restraints due to pulling devices Objective Objective Last 24 Hour Vital Signs Date Time Temp Pulse Resp B/P (MAP) Pulse Ox O2 Delivery O2 Flow Rate FiO2 02/06/19 11:00 76 15 121/53 (75) 100 02/06/19 11:00 15 121/53 Mechanical Ventilator 50 02/06/19 10:30 77 31 50 02/06/19 10:30 77 16 126/56 (79) 100 02/06/19 10:00 15 128/57 Mechanical Ventilator 50 02/06/19 10:00 77 17 128/56 (80) 100 02/06/19 09:45 77 15 128/56 (80) 100 02/06/19 09:30 79 15 135/57 (83) 100 02/06/19 09:15 80 15 149/67 (94) 100 02/06/19 09:00 22 138/62 Mechanical Ventilator 50 02/06/19 09:00 82 26 138/62 (87) 100 02/06/19 08:46 79 37 80 02/06/19 08:45 80 27 133/61 (85) 100 02/06/19 08:30 78 18 136/60 (85) 100 02/06/19 08:15 80 20 128/66 (86) 100 02/06/19 08:00 80 02/06/19 08:00 79 02/06/19 08:00 18 129/58 Mechanical Ventilator 80 02/06/19 08:00 97.2 76 18 129/58 (81) 100 02/06/19 08:00 Mechanical Ventilator 02/06/19 07:45 77 23 129/58 (81) 100 02/06/19 07:30 75 15 133/59 (83) 100 02/06/19 07:15 74 14 133/59 (83) 100 02/06/19 07:01 80 02/06/19 07:00 73 26 125/65 (85) 100 02/06/19 07:00 26 129/55 Mechanical Ventilator 80 02/06/19 06:45 75 26 130/61 (84) 100 02/06/19 06:41 80 02/06/19 06:30 70 32 100 02/06/19 06:30 69 26 118/54 (75) 100 02/06/19 06:15 74 26 111/56 (74) 99 02/06/19 06:08 34 105/58 Mechanical Ventilator 100 02/06/19 06:00 97.3 61 16 105/58 (74) 100 02/06/19 05:52 100 02/06/19 05:45 100 02/06/19 05:45 85 20 132/75 (94) 100 02/06/19 05:30 61 15 100/50 (67) 100 02/06/19 05:08 72 34 100 02/06/19 05:00 71 19 137/69 (91) 92 02/06/19 04:45 69 35 111/89 (96) 95 02/06/19 04:30 73 20 124/100 (108) 92 02/06/19 04:22 95.4 114 18 124/65 94 Mechanical Ventilator 100.0 100 02/06/19 04:22 95.9 115 14 110/65 94 Mechanical Ventilator 100 02/06/19 04:00 Mechanical Ventilator 02/06/19 04:00 100 02/06/19 04:00 66 02/06/19 04:00 96.8 67 19 122/59 (80) 92 02/06/19 03:40 96.8 66 22 109/46 (67) 95 02/06/19 03:21 18 124/65 Mechanical Ventilator 100.0 100 02/06/19 03:18 Mechanical Ventilator 02/06/19 02:54 84 18 100 02/06/19 02:21 18 160/72 Mechanical Ventilator 100.0 100 02/06/19 01:37 113 14 100 02/06/19 01:30 95.4 145 14 162/78 97 Mechanical Ventilator 100 02/06/19 01:25 95.3 0 0 35/12 0 Bi-pap 02/06/19 00:45 97.6 89 18 145/75 100 Bi-pap 4.0 30 02/06/19 00:39 81 19 97 Facial 30 02/06/19 00:07 81 21 100 Bi-Pap 30 02/05/19 23:47 79 19 98 Bi-Pap 30 02/05/19 23:46 79 19 98 Bi-Pap 30 02/05/19 23:23 82 27 100 Bi-Pap 30 02/05/19 23:23 82 24 100 Bi-Pap 30 02/05/19 23:09 79 23 100 Bi-Pap 30 02/05/19 23:07 79 22 100 Bi-Pap 30 02/05/19 22:53 80 27 100 Bi-Pap 40 02/05/19 22:50 85 27 91 Nasal Cannula 4.0 36 02/05/19 22:50 80 27 100 Facial 40 02/05/19 22:45 99.0 89 26 124/70 98 Nasal Cannula 4.0 02/05/19 22:45 80 24 Nasal Cannula 4.0 02/05/19 22:28 99.0 80 24 124/70 (88) 98 Nasal Cannula 4.0 Intake and Output 02/05/19 02/06/19 19:00 07:00 Intake Total 413.34 ml Output Total 520 ml Balance -106.66 ml Intake Oral 0 ml IV Total 113.34 ml Blood Product 300 ml Output Urine Total 520 ml # Voids 1 Laboratory Tests 02/05/19 23:10: White Blood Count 14.4H, Red Blood Count 2.27L, Hemoglobin 6.4*L, Hematocrit 19.4L, Mean Corpuscular Volume 86, Mean Corpuscular Hemoglobin 28.0, Mean Corpuscular Hemoglobin Concent 32.8, Red Cell Distribution Width 14.2, Platelet Count 195, Mean Platelet Volume 7.6, Neutrophils (%) (Auto) , Lymphocytes (%) ( Auto) , Monocytes (%) (Auto) , Eosinophils (%) (Auto) , Basophils (%) (Auto) , Prothrombin Time 11.2, Prothromb Time International Ratio 1.1, Activated Partial Thromboplast Time 32, Urine Color Pale yellow, Urine Appearance Clear, Urine pH 5, Urine Specific [place] 1.015, Urine Protein 4+H, Urine Glucose (UA) 3+H, Urine Ketones Negative, Urine Blood 3+H, Urine Nitrite Negative, Urine Bilirubin Negative, Urine Urobilinogen Normal, Urine Leukocyte Esterase Negative , Urine RBC 5-10H, Urine WBC 0-2, Urine Squamous Epithelial Cells None, Urine Bacteria Few, Sodium Level 145, Potassium Level 3.9, Chloride Level 110H, Carbon Dioxide Level 10L, Anion Gap 25H, Blood Urea Nitrogen 95H, Creatinine 9.3H, Estimat Glomerular Filtration Rate 5.7, Glucose Level 121H, Lactic Acid Level 2.60H, Calcium Level 7.6L, Total Bilirubin 0.7, Direct Bilirubin 0.2, Aspartate Amino Transf (AST/SGOT) 51H, Alanine Aminotransferase (ALT/SGPT) 42, Alkaline Phosphatase 133H, Total Creatine Kinase 245, Creatine Kinase MB 9.6H, Creatine Kinase MB Relative Index 3.9, Troponin I 0.238H, Pro-B-Type Natriuretic Peptide > 63262S, Total Protein 7.5, Albumin 2.8L, Globulin 4.7, Albumin/Globulin Ratio 0.6L, Lipase 374 02/05/19 23:50: Venous Blood pH 7.160, Venous Blood Partial Pressure CO2 22.6, Venous Blood Partial Pressure O2 43.9, Venous Blood HCO3 7.9, Venous Blood Total Carbon Dioxide 22.6, Venous Bld O2 Saturation (Measured) 43.9, Venous Blood Oxygen Saturation 65.3, Venous Blood Base Excess -19.1, Methemoglobin 1.0, Sodium ( Blood Gas) 02/06/19 00:37: Lactic Acid Level 1.60 02/06/19 01:58: Triglycerides Level 84 02/06/19 04:54: Arterial Blood pH 6.899*L, Arterial Blood Partial Pressure CO2 43.0, Arterial Blood Partial Pressure O2 72.5L, Arterial Blood HCO3 8.2*L, Arterial Blood Oxygen Saturation 83.9*L, Arterial Blood Base Excess -23.3*L, Trevor Test Positive 02/06/19 06:12: Arterial Blood pH 7.216*L, Arterial Blood Partial Pressure CO2 28.0L, Arterial Blood Partial Pressure O2 149.0H, Arterial Blood HCO3 11.1*L, Arterial Blood Oxygen Saturation 98.0, Arterial Blood Base Excess -15.3*L, Trevor Test Positive 02/06/19 07:45: White Blood Count 18.3H, Red Blood Count 2.50L, Hemoglobin 7.2L, Hematocrit 22.5L, Mean Corpuscular Volume 90, Mean Corpuscular Hemoglobin 29.0, Mean Corpuscular Hemoglobin Concent 32.1, Red Cell Distribution Width 14.3, Platelet Count 153, Mean Platelet Volume 8.1, Neutrophils (%) (Auto) , Lymphocytes (%) ( Auto) , Monocytes (%) (Auto) , Eosinophils (%) (Auto) , Basophils (%) (Auto) , Differential Total Cells Counted 100, Neutrophils % (Manual) 97H, Lymphocytes % (Manual) 1L, Monocytes % (Manual) 2, Eosinophils % (Manual) 0, Basophils % ( Manual) 0, Band Neutrophils 0, Nucleated Red Blood Cells 5, Platelet Estimate Adequate, Platelet Morphology Normal, Hypochromasia 3+, Anisocytosis 1+, Sodium Level 152H, Potassium Level 3.7, Chloride Level 117H, Carbon Dioxide Level 16L, Anion Gap 20H, Blood Urea Nitrogen 94H, Creatinine 8.5H, Estimat Glomerular Filtration Rate 6.3, Glucose Level 190H, Calcium Level 6.4L, Total Bilirubin 1.0 , Aspartate Amino Transf (AST/SGOT) 549H, Alanine Aminotransferase (ALT/SGPT) 251H, Alkaline Phosphatase 118H, Troponin I 0.316H, Total Protein 5.8L, Albumin 2.1L, Globulin 3.7, Albumin/Globulin Ratio 0.6L 02/06/19 08:09: Arterial Blood pH 7.282L, Arterial Blood Partial Pressure CO2 24.0*L, Arterial Blood Partial Pressure O2 250.6H, Arterial Blood HCO3 11.1*L, Arterial Blood Oxygen Saturation 98.9, Arterial Blood Base Excess -14.2*L, Trevor Test Positive Height (Feet): 5 Height (Inches): 3.00 Weight (Pounds): 128 Nery Quezada MD Feb 06, 2019 11:37
[2019-02-06] MEDS: NovoLOG Insulin Flexpen SUBQ SCH ×3 (11:39→23:46)
[2019-02-06] MEDS: Hydrocortisone 100mg Inj IV SCH ×2 (11:39→21:02)
--- NOTE | 2019-02-06 12:00 | NUR ---
NURSE NOTES: [facility] CALLED AND SPOKE WITH [facility] FOR SCHEDULED DIALYSIS 02/07/19.
--- NOTE | 2019-02-06 12:31 | NUR ---
NURSE NOTES: BLOOD TRANFUSION STARTED. VSS. STILL DOING US ABD. NO SIGNS OF DISTRESS OF THE MOMENT. WILL CONTINUE TO MONITOR.
--- NOTE | 2019-02-06 13:00 | NUR ---
NURSE NOTES: SPOKE WITH HEMO NURSE FROM [facility] RE SCHEDULED DIALYSIS AND TO CALL THEM BACK ONCE NON TUNNELED DIALYSIS CATH HAS BEEN PLACED. WILL CONTINUE TO MONITOR.
[2019-02-06] MEDS ORDERED: Heparin1,000 units/500ml Premix(Conc:2 units/ml) INJ ONE (13:15)
[2019-02-06] MEDS ORDERED: Lidocaine 1% Plain 30 ml INJ ONE (13:15)
--- NOTE | 2019-02-06 13:29 | NUR ---
RD ASSESSMENT & RECOMMENDATIONS SEE CARE ACTIVITY FOR COMPLETE ASSESSMENT DAILY ESTIMATED NEEDS: Needs based on HD, Critical Care/ 57kg 22-30 kcals/kg 4132-9633 total kcals 1.2-2 g protein/kg 68-114 g total protein 20-22 mL/kg 3487-8464 total fluid mLs NUTRITION DIAGNOSIS: * Swallowing difficulty R/T respiratory status as evidenced by s/p code blue, orally intubated and sedated in ICU, w/ OGT in place, NPO at this time * Altered nutrition related lab values R/T renal dysfunction, DM as evidenced by elev creat(8.5) now w/ an order for HD, elev BNP (>08812), elev BGs(190 121). CURRENT TF:NPO PO DIET RECOMMENDATIONS: NURSING UNIT COORDINATOR eval once extubated ENTERAL NUTRITION RECOMMENDATIONS: Nepro @ 35ml/hr x 24 hrs to provide 840ml, 1512kcal, 68g prot, 640ml free water * As medically appropriate, initiate Nepro @ 15ml/hr x 6 hrs, advance 10ml q 4-6 hrs as tolerated to goal. * HOB over 30 degrees/ water flush per MD If Propofol cont to run @ 18.36ml/hr, rec Nepro at goal rate of 25ml/hr x 24 hrs + Prosource 1pkt BID (w/ Propofol, pt will receive 100% est kcal, prot needs -> 1080kcal + 485kcal from propofol, 70g prot) ADDITIONAL RECOMMENDATIONS: * Calibrated bedscale wt for accurate CBW * Monitor for continuity of HD, monitor renal fxn and lytes * Monitor BGs closely w/ manny
--- NOTE | 2019-02-06 13:39 | Diagnostic Imaging Report ---
Indication: Abdominal pain Technique: Grayscale and duplex Doppler imaging of the abdomen performed. Comparison: None Findings: The liver is unremarkable. Doppler interrogation of the main portal vein shows patency with hepatopedal, monophasic flow. There is no biliary ductal dilatation identified. Gallbladder is notable for wall thickening without obvious stones. Sonographic Rojas's sign was negative per technologist. There is trace ascites. CBD is 5 mm. There demonstrated part of the pancreas, aorta and IVC show no definite abnormalities the largely obscured by bowel gas. The kidneys are mildly echogenic. There may be a small stone in the right kidney. There is no hydronephrosis. There are small bilateral pleural effusions.. IMPRESSION: Gallbladder wall thickening nonspecific. Sonographic Rojas's is equivocal due to patient's condition. Trace ascites Bilateral pleural effusions. Suspected medical renal disease. Suspected nonobstructive stone in the right kidney.
[2019-02-06] MEDS: Meropenem 500 MG in NS 55 ML IVPB SCH (13:54)
[2019-02-06] MEDS ORDERED: Zosyn 2.25 gm in D5W 55ml IV SCH (14:00)
--- NOTE | 2019-02-06 14:49 | Nephrology Progress Note ---
Subjective Subjective Patient has no family or DPOA. Needs Perma Cath for HD and PICC TAE. Pt. needs soft restraints due to pulling devices Patient has no family or DPOA. Currently needs non-tunneled HD catheter to prevent complications or prevent life-threatening complications or . Objective Objective Last 24 Hour Vital Signs Date Time Temp Pulse Resp B/P (MAP) Pulse Ox O2 Delivery O2 Flow Rate FiO2 02/06/19 14:28 19 Mechanical Ventilator 50 02/06/19 14:00 73 17 124/54 (77) 100 02/06/19 14:00 16 124/54 Mechanical Ventilator 50 02/06/19 12:50 74 31 50 02/06/19 12:50 14 126/54 Mechanical Ventilator 50 02/06/19 12:30 75 17 126/54 (78) 100 02/06/19 12:00 98.0 74 18 123/51 (75) 100 02/06/19 12:00 Mechanical Ventilator 02/06/19 12:00 18 123/51 Mechanical Ventilator 50 02/06/19 12:00 50 02/06/19 11:30 74 17 123/54 (77) 100 02/06/19 11:00 76 15 121/53 (75) 100 02/06/19 11:00 15 121/53 Mechanical Ventilator 50 02/06/19 10:30 50 02/06/19 10:30 77 31 50 02/06/19 10:30 77 16 126/56 (79) 100 02/06/19 10:00 15 128/57 Mechanical Ventilator 50 02/06/19 10:00 77 17 128/56 (80) 100 02/06/19 09:45 77 15 128/56 (80) 100 02/06/19 09:30 79 15 135/57 (83) 100 02/06/19 09:15 80 15 149/67 (94) 100 02/06/19 09:00 22 138/62 Mechanical Ventilator 50 02/06/19 09:00 82 26 138/62 (87) 100 02/06/19 08:46 79 37 80 02/06/19 08:45 80 27 133/61 (85) 100 02/06/19 08:30 78 18 136/60 (85) 100 02/06/19 08:15 80 20 128/66 (86) 100 02/06/19 08:00 80 02/06/19 08:00 79 02/06/19 08:00 18 129/58 Mechanical Ventilator 80 02/06/19 08:00 97.2 76 18 129/58 (81) 100 02/06/19 08:00 Mechanical Ventilator 02/06/19 07:45 77 23 129/58 (81) 100 02/06/19 07:30 75 15 133/59 (83) 100 02/06/19 07:15 74 14 133/59 (83) 100 02/06/19 07:01 80 02/06/19 07:00 73 26 125/65 (85) 100 02/06/19 07:00 26 129/55 Mechanical Ventilator 80 02/06/19 06:45 75 26 130/61 (84) 100 02/06/19 06:41 80 02/06/19 06:30 70 32 100 02/06/19 06:30 69 26 118/54 (75) 100 02/06/19 06:15 74 26 111/56 (74) 99 02/06/19 06:08 34 105/58 Mechanical Ventilator 100 02/06/19 06:00 97.3 61 16 105/58 (74) 100 02/06/19 05:52 100 02/06/19 05:45 100 02/06/19 05:45 85 20 132/75 (94) 100 02/06/19 05:30 61 15 100/50 (67) 100 02/06/19 05:08 72 34 100 02/06/19 05:00 71 19 137/69 (91) 92 02/06/19 04:45 69 35 111/89 (96) 95 02/06/19 04:30 73 20 124/100 (108) 92 02/06/19 04:22 95.4 114 18 124/65 94 Mechanical Ventilator 100.0 100 02/06/19 04:22 95.9 115 14 110/65 94 Mechanical Ventilator 100 02/06/19 04:00 Mechanical Ventilator 02/06/19 04:00 100 02/06/19 04:00 66 02/06/19 04:00 96.8 67 19 122/59 (80) 92 02/06/19 03:40 96.8 66 22 109/46 (67) 95 02/06/19 03:21 18 124/65 Mechanical Ventilator 100.0 100 02/06/19 03:18 Mechanical Ventilator 02/06/19 02:54 84 18 100 02/06/19 02:21 18 160/72 Mechanical Ventilator 100.0 100 02/06/19 01:37 113 14 100 02/06/19 01:30 95.4 145 14 162/78 97 Mechanical Ventilator 100 02/06/19 01:25 95.3 0 0 35/12 0 Bi-pap 02/06/19 00:45 97.6 89 18 145/75 100 Bi-pap 4.0 30 02/06/19 00:39 81 19 97 Facial 30 02/06/19 00:07 81 21 100 Bi-Pap 30 02/05/19 23:47 79 19 98 Bi-Pap 30 02/05/19 23:46 79 19 98 Bi-Pap 30 02/05/19 23:23 82 27 100 Bi-Pap 30 02/05/19 23:23 82 24 100 Bi-Pap 30 02/05/19 23:09 79 23 100 Bi-Pap 30 02/05/19 23:07 79 22 100 Bi-Pap 30 02/05/19 22:53 80 27 100 Bi-Pap 40 02/05/19 22:50 85 27 91 Nasal Cannula 4.0 36 02/05/19 22:50 80 27 100 Facial 40 02/05/19 22:45 99.0 89 26 124/70 98 Nasal Cannula 4.0 02/05/19 22:45 80 24 Nasal Cannula 4.0 02/05/19 22:28 99.0 80 24 124/70 (88) 98 Nasal Cannula 4.0 Intake and Output 02/05/19 02/06/19 19:00 07:00 Intake Total 413.34 ml Output Total 520 ml Balance -106.66 ml Intake Oral 0 ml IV Total 113.34 ml Blood Product 300 ml Output Urine Total 520 ml # Voids 1 Laboratory Tests 02/05/19 23:10: White Blood Count 14.4H, Red Blood Count 2.27L, Hemoglobin 6.4*L, Hematocrit 19.4L, Mean Corpuscular Volume 86, Mean Corpuscular Hemoglobin 28.0, Mean Corpuscular Hemoglobin Concent 32.8, Red Cell Distribution Width 14.2, Platelet Count 195, Mean Platelet Volume 7.6, Neutrophils (%) (Auto) , Lymphocytes (%) ( Auto) , Monocytes (%) (Auto) , Eosinophils (%) (Auto) , Basophils (%) (Auto) , Prothrombin Time 11.2, Prothromb Time International Ratio 1.1, Activated Partial Thromboplast Time 32, Urine Color Pale yellow, Urine Appearance Clear, Urine pH 5, Urine Specific [place] 1.015, Urine Protein 4+H, Urine Glucose (UA) 3+H, Urine Ketones Negative, Urine Blood 3+H, Urine Nitrite Negative, Urine Bilirubin Negative, Urine Urobilinogen Normal, Urine Leukocyte Esterase Negative , Urine RBC 5-10H, Urine WBC 0-2, Urine Squamous Epithelial Cells None, Urine Bacteria Few, Sodium Level 145, Potassium Level 3.9, Chloride Level 110H, Carbon Dioxide Level 10L, Anion Gap 25H, Blood Urea Nitrogen 95H, Creatinine 9.3H, Estimat Glomerular Filtration Rate 5.7, Glucose Level 121H, Lactic Acid Level 2.60H, Calcium Level 7.6L, Total Bilirubin 0.7, Direct Bilirubin 0.2, Aspartate Amino Transf (AST/SGOT) 51H, Alanine Aminotransferase (ALT/SGPT) 42, Alkaline Phosphatase 133H, Total Creatine Kinase 245, Creatine Kinase MB 9.6H, Creatine Kinase MB Relative Index 3.9, Troponin I 0.238H, Pro-B-Type Natriuretic Peptide > 11408S, Total Protein 7.5, Albumin 2.8L, Globulin 4.7, Albumin/Globulin Ratio 0.6L, Lipase 374 02/05/19 23:50: Venous Blood pH 7.160, Venous Blood Partial Pressure CO2 22.6, Venous Blood Partial Pressure O2 43.9, Venous Blood HCO3 7.9, Venous Blood Total Carbon Dioxide 22.6, Venous Bld O2 Saturation (Measured) 43.9, Venous Blood Oxygen Saturation 65.3, Venous Blood Base Excess -19.1, Methemoglobin 1.0, Sodium ( Blood Gas) 02/06/19 00:37: Lactic Acid Level 1.60 02/06/19 01:58: Triglycerides Level 84 02/06/19 04:54: Arterial Blood pH 6.899*L, Arterial Blood Partial Pressure CO2 43.0, Arterial Blood Partial Pressure O2 72.5L, Arterial Blood HCO3 8.2*L, Arterial Blood Oxygen Saturation 83.9*L, Arterial Blood Base Excess -23.3*L, Trevor Test Positive 02/06/19 06:12: Arterial Blood pH 7.216*L, Arterial Blood Partial Pressure CO2 28.0L, Arterial Blood Partial Pressure O2 149.0H, Arterial Blood HCO3 11.1*L, Arterial Blood Oxygen Saturation 98.0, Arterial Blood Base Excess -15.3*L, Trevor Test Positive 02/06/19 07:45: White Blood Count 18.3H, Red Blood Count 2.50L, Hemoglobin 7.2L, Hematocrit 22.5L, Mean Corpuscular Volume 90, Mean Corpuscular Hemoglobin 29.0, Mean Corpuscular Hemoglobin Concent 32.1, Red Cell Distribution Width 14.3, Platelet Count 153, Mean Platelet Volume 8.1, Neutrophils (%) (Auto) , Lymphocytes (%) ( Auto) , Monocytes (%) (Auto) , Eosinophils (%) (Auto) , Basophils (%) (Auto) , Differential Total Cells Counted 100, Neutrophils % (Manual) 97H, Lymphocytes % (Manual) 1L, Monocytes % (Manual) 2, Eosinophils % (Manual) 0, Basophils % ( Manual) 0, Band Neutrophils 0, Nucleated Red Blood Cells 5, Platelet Estimate Adequate, Platelet Morphology Normal, Hypochromasia 3+, Anisocytosis 1+, Sodium Level 152H, Potassium Level 3.7, Chloride Level 117H, Carbon Dioxide Level 16L, Anion Gap 20H, Blood Urea Nitrogen 94H, Creatinine 8.5H, Estimat Glomerular Filtration Rate 6.3, Glucose Level 190H, Calcium Level 6.4L, Total Bilirubin 1.0 , Aspartate Amino Transf (AST/SGOT) 549H, Alanine Aminotransferase (ALT/SGPT) 251H, Alkaline Phosphatase 118H, Troponin I 0.316H, Total Protein 5.8L, Albumin 2.1L, Globulin 3.7, Albumin/Globulin Ratio 0.6L 02/06/19 08:09: Arterial Blood pH 7.282L, Arterial Blood Partial Pressure CO2 24.0*L, Arterial Blood Partial Pressure O2 250.6H, Arterial Blood HCO3 11.1*L, Arterial Blood Oxygen Saturation 98.9, Arterial Blood Base Excess -14.2*L, Trevor Test Positive 02/06/19 11:55: Troponin I 0.330H, Fentanyl Level [Pending], Norfentanyl Level [Pending] 02/06/19 12:56: Arterial Blood pH 7.224*L, Arterial Blood Partial Pressure CO2 19.6*L, Arterial Blood Partial Pressure O2 151.2H, Arterial Blood HCO3 7.9*L, Arterial Blood Oxygen Saturation 98.0, Arterial Blood Base Excess -18.0*L, Trevor Test Positive Height (Feet): 5 Height (Inches): 3.00 Weight (Pounds): 128 Nery Quezada MD Feb 06, 2019 14:49
--- NOTE | 2019-02-06 14:52 | NUR ---
NURSE NOTES: DR PATHAK NOTIFIED RE THE NON TUNNELED DIALYSIS CATH PLACEMENT AND ORDERED TO NOTIFY DR EVANS FOR THE PROCEDURE. DR EVANS CONFIRMED TO SEE PATIENT. TOLERATING VENT SETTINGS AND BLOOD TRANSFUSION. WILL CONTINUE TO MONITOR.
[2019-02-06] MEDS: Albuterol/Ipratropium 3ml neb HHN SCH ×3 (15:10→23:27)
--- NOTE | 2019-02-06 15:30 | NUR ---
NURSE NOTES: STARTED THE 2ND UNIT OF BLOOD. NO SIGNS OF REACTION NOTED. TOLERATING VENT SETTINGS AND BLOOD TRANSFUSION. STARTED ON FENTANY[place] DRIP FOLLOWING HOSPITAL PROTOCOL. NO SIGNS OF DISTRESS. WILL CONTINUE TO MONITOR.
[2019-02-06] MEDS: Sodium Bicarbonate 100 ML in D5W 1000ml 1,000 ML IV SCH (15:51)
--- NOTE | 2019-02-06 16:05 | NUR ---
RESPIRATORY NOTE: Decreased peep down to [address] Chambers's order. Pt still saturates at 100%. YU Wiley made aware.
--- NOTE | 2019-02-06 16:33 | NUR ---
*-* INSURANCE *-* ALL CLINICALS AND REVIEWS HAVE BEEN FAXED TO: /[facility] @ [phone] - OPT-3 TRKING# [id number] NCM: NICHOLAS Martin P- [phone] F- [phone]....REVIEW/CLINICAL
--- NOTE | 2019-02-06 17:15 | Consultation ---
DATE OF CONSULTATION: 02/06/2019 NEPHROLOGY CONSULTATION CONSULTING PHYSICIAN: Nery Quezada M.D. ATTENDING PHYSICIAN: Theo Noriega M.D. REASON FOR CONSULTATION: Elevated BUN creatinine. HISTORY OF PRESENT ILLNESS: This is a 68-year-old male from [facility], admitted to this hospital by the attending physician. I am asked to see the patient for elevation of BUN and creatinine. The patient has a grossly abnormal lab results. PAST MEDICAL HISTORY: 1. End-stage renal failure, not started on dialysis. 2. Hypertensive cardiovascular disease. 3. History of obstructive uropathy. 4. Suprapubic catheter. 5. 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 7. COPD. 8. Anemia of chronic kidney disease. 9. Glaucoma. MEDICATIONS: Tylenol, Mylanta, albuterol inhalation, cefepime, subcutaneous heparin, bisacodyl, Keflex, cranberry, sodium docusate, doxycycline, Nexium, Atarax, Lantus, isosorbide, milk of magnesia, metoprolol, multivitamins, Fleet enema, Zofran, Pred Forte eye drops, senna, Januvia. ALLERGIES: None reported. FAMILY HISTORY: Unable to obtain. SOCIAL HISTORY: Unable to obtain. The patient also reported by the social organization professor to have no family or DPOA. REVIEW OF SYSTEMS: Unable to obtain due to his mental status. PHYSICAL EXAMINATION: GENERAL: This is an elderly male, who is in no acute distress. VITAL SIGNS: Blood pressure 121/53, pulse 76 and regular, respirations 20, and temperature is 98.2. HEENT: Head is normocephalic and atraumatic. Pupils are equal, round, and reactive to light. NECK: Supple. Trachea midline. There was no lymphadenopathy or thyromegaly. LUNGS: Clear to auscultation and percussion. HEART: Regular rate and rhythm without rubs, murmurs, or gallops. ABDOMEN: Soft and nontender. Bowel sounds were active. He has a suprapubic catheter. EXTREMITIES: Both bilateral [id number] stumps are clear. NEUROLOGIC: He is confused. There were no gross focal findings. LABORATORY AND ANCILLARY DATA: CBC shows initial hematocrit 19.4 today 22.5, WBC 18,300. Chemistry initial sodium 152, today potassium 3.7, BUN 94, creatinine 8.5. ASSESSMENT: End-stage renal failure, multifactorial due to obstructive uropathy and diabetic nephropathy. PLAN: 1. Initiate hemodialysis. 2. Modify the patient's medications and some of the need to be modified to the patient's GFR. 3. The patient has no family or DPOA. We will try to use surrogate decision makers. Nery Quezada M.D. DR: Evon JOB#: [id number] CC:
--- NOTE | 2019-02-06 17:15 | Consultation ---
DATE OF CONSULTATION: 02/06/2019 INFECTIOUS DISEASE CONSULTATION CONSULTING PHYSICIAN: Alicia Greene M.D. REFERRING PHYSICIAN: Dr. Chambers. REASON FOR CONSULTATION: Pneumonia. HISTORY OF PRESENT ILLNESS: This is a 68-year-old gentleman with history of hypertension, diabetes, hyperlipidemia, COPD, coronary artery disease, atrial fibrillation, and status post bilateral amputation, who came in with shortness of breath. He was found to have pneumonia at an outside hospital recently. He has been intubated and admitted to the ICU. An Infectious Disease consultation has been obtained for antibiotics. PAST MEDICAL HISTORY: 1. History of diabetes. 2. Hypertension. 3. Hyperlipidemia. 4. COPD. 5. Atrial fibrillation. 6. Coronary artery disease. 7. Status post bilateral amputation. 8. Chronic kidney disease. 9. GERD. SOCIAL HISTORY: He has a previous history of smoking. He has history of alcohol use. No history of drug use. FAMILY HISTORY: Unknown. REVIEW OF SYSTEMS: Unable to obtain currently. MEDICATIONS: As an inpatient, he is on chlorhexidine gluconate, albuterol and ipratropium, Zosyn, insulin, hydrocortisone, fentanyl, lidocaine, subcutaneous heparin, Prevacid, propofol, IV vancomycin, Tylenol, and Mylanta. ALLERGIES: No known drug allergies. PHYSICAL EXAMINATION: VITAL SIGNS: Temperature 97.2, T-max of 97.3, pulse 77, respiratory rate 17, and blood pressure 128/56. O2 saturation of 100%. HEENT: Pupils are equally reactive to light and accommodation. Mouth appears clean without thrush. NECK: Supple. No adenopathy. No JVD. CARDIOVASCULAR: Regular rate and rhythm. No murmurs. LUNGS: Clear to auscultation bilaterally. No crackles. No wheezes. ABDOMEN: Soft and nontender. Suprapubic catheter noted. EXTREMITIES: No cyanosis. No clubbing. No edema. Stumps are clean. Left groin catheter noted. LABORATORY AND DIAGNOSTIC DATA: White count of 18.3, hemoglobin 7.2 hematocrit 22.5, MCV 90, and platelet count 153. Neutrophils of 97%. Sodium 152, potassium 3.7, chloride 117, bicarb 16, BUN 94, and creatinine 8.5. Glucose 190. Calcium 6.4. AST 549, ALT 251, and alkaline phosphatase 118. Troponin 0.31. Total protein 5.8, albumin 2.1. UA is showing 0 to 2 white cells. Chest x-ray is showing worsening airspace disease. ASSESSMENT: This is a 68-year-old gentleman with history of diabetes, hypertension and renal failure, who comes in with shortness of breath, and is found to have, 1. Pneumonia. Would be concerned regarding aspiration pneumonia as a possibility. 2. Respiratory failure. 3. Renal failure. PLAN: 1. We will order blood cultures. 2. We will order sputum for Gram stain and culture. 3. Discontinue vancomycin and Zosyn. 4. We will start the patient on linezolid and meropenem. 5. We will follow up cultures and adjust antibiotics accordingly. I would like to thank Dr. Chambers for this consultation. Alicia Greene M.D. DR: TWIN JOB#: [id number] CC: Dr. Chambers
--- NOTE | 2019-02-06 17:26 | Consultation ---
History of Present Illness General Date patient seen: Feb 06, 2019 Chief Complaint: Dyspnea/Respdistress Present Illness HPI Patient is a 68-year-old male history of COPD, CAD, afib, hypertension, hyperlipidemia, diabetes, bilateral amputations, CKD, Anemia, presented with acute shortness of breath, patient was diagnosed with pneumonia in outside hospital previously. He complained of acute shortness of breath for 3 hours. Patient coded in the ED, intubated and placed on Mechanical Ventilation. Currently in intensive care unit in critical condition. Patient with leukocytosis, anemia, abnormal LFTs, elevated troponins, renal insufficiency. Patient requiring urgent dialysis and requires temporary hemodialysis catheter placement. Furthermore patient current condition and intensive care required. Surgery called to evaluate and assist with care and management. Patient seen, patient evaluated, chart reviewed. Etiology of abnormal labs unknown and work- up continuing Allergies: Coded Allergies: No Known Allergies (Unverified , 09/25/17) Medication History Scheduled Amlodipine Besylate (Norvasc), 10 MG ORAL DAILY, (Reported) Ascorbic Acid* (Vitamin C*), 500 MG ORAL DAILY, (Reported) Atorvastatin Calcium* (Lipitor*), 10 MG ORAL BEDTIME, (Reported) Bisacodyl* (Dulcolax*), 10 MG RECTAL DAILY, (Reported) Cephalexin* (Keflex*), 250 MG ORAL DAILY, (Reported) Cranberry Fruit Concentrate (Cranberry), 450 MG PO DAILY, (Reported) Docusate Sodium* (Docusate Sodium*), 200 MG ORAL DAILY, (Reported) Doxycycline Monohydrate* (Doxycycline Monohydrate*), 100 MG ORAL TWICE A DAY, ( Reported) Esomeprazole Magnesium (Nexium), 40 MG ORAL DAILY, (Reported) Hydroxyzine HCl (Hydroxyzine HCl), 25 MG ORAL FOUR TIMES A DAY, (Reported) Insulin Glargine (Lantus), 30 SUBQ BEDTIME, (Reported) Magnesium Hydroxide* (Milk Of Magnesia*), 30 ML ORAL DAILY, (Reported) Metoprolol Tartrate* (Metoprolol Tartrate*), 12.5 MG ORAL EVERY 12 HOURS, ( Reported) Multivitamin With Minerals (Multivitamins With Minerals*), 1 TAB ORAL DAILY, ( Reported) Prednisolone Acetate (Pred Forte), 1 ML OP BID, (Reported) Sitagliptin* (Januvia*), 100 MG ORAL DAILY, (Reported) Scheduled PRN Acetaminophen* (Acetaminophen*), 650 MG ORAL Q4HR PRN for Mild Pain/Temp > 100.5 , (Reported) Hydrocodone Bit/Acetaminophen 5-325* ([place] 5-325*), 1 TAB ORAL Q6H PRN for For Pain, (Reported) Ondansetron* (Zofran*), 4 MG ORAL Q6H PRN for Nausea & Vomiting, (Reported) Miscellaneous Medications Atropine Sulfate (Atropine Sulfate), 1 MG IJ, (Reported) Calcium Carbonate/Vitamin D3 (Oyster Shell 250 Mg + Vit D Tb), 1 EACH PO, ( Reported) Dextran 70/Hypromellose (Artificial Tears Eye Drops*), 1 DROP BOTH EYES, ( Reported) Isosorbide Mononitrate (Isosorbide Mononitrate Er), 60 MG PO, (Reported) Na Phos,M-B/Na Phos,Di-Ba (Enema), 133 ML RC, (Reported) Sennosides (Senna), Unknown Dose PO, (Reported) Patient History Limited by: medical condition History Provided By: Medical Record, PMD Healthcare decision maker Resuscitation status Full Code Advanced Directive on File No Past Medical/Surgical History Past Medical/Surgical History: (1) Abnormal LFTs (2) Shock liver (3) COPD (chronic obstructive pulmonary disease) (4) HTN (hypertension) (5) Suprapubic catheter (6) Epileptic seizure, generalized (7) ARDS (adult respiratory distress syndrome) (8) Anemia (9) Elevated troponin (10) MARY (acute kidney injury) (11) COPD with exacerbation (12) Pneumonia (13) Respiratory distress Review of Systems ROS Narrative Cannot obtain given patient's current medical condition Physical Exam General Appearance: mild distress Lines, tubes and drains: endotracheal tube HEENT: atraumatic Neck: normal alignment Respiratory/Chest: normal breath sounds, on vent Cardiovascular/Chest: tachycardia Abdomen: soft, no organomegaly, no mass Genitourinary/Rectal: other - penile prostehetic Extremities: no edema, no cyanosis Skin Exam: warm/dry Neurologic: unresponsiveness Last 24 Hour Vital Signs Date Time Temp Pulse Resp B/P (MAP) Pulse Ox O2 Delivery O2 Flow Rate FiO2 02/06/19 16:52 73 30 50 02/06/19 16:00 98.1 76 14 126/72 (90) 100 02/06/19 16:00 72 02/06/19 16:00 Mechanical Ventilator 02/06/19 16:00 50 02/06/19 15:30 83 29 120/47 (71) 99 02/06/19 15:20 77 31 100 Mechanical Ventilator 50 02/06/19 15:15 78 21 130/55 (80) 99 02/06/19 15:10 81 31 98 Mechanical Ventilator 50 02/06/19 15:09 75 29 50 02/06/19 15:00 28 Mechanical Ventilator 50 02/06/19 15:00 28 121/58 Mechanical Ventilator 50 02/06/19 15:00 82 28 121/58 (79) 100 02/06/19 14:45 82 23 129/51 (77) 97 02/06/19 14:30 85 22 136/114 (121) 99 02/06/19 14:28 19 Mechanical Ventilator 50 02/06/19 14:00 73 17 124/54 (77) 100 02/06/19 14:00 16 124/54 Mechanical Ventilator 50 02/06/19 12:50 74 31 50 02/06/19 12:50 14 126/54 Mechanical Ventilator 50 02/06/19 12:30 75 17 126/54 (78) 100 02/06/19 12:00 98.0 74 18 123/51 (75) 100 02/06/19 12:00 73 02/06/19 12:00 Mechanical Ventilator 02/06/19 12:00 18 123/51 Mechanical Ventilator 50 02/06/19 12:00 50 02/06/19 11:30 74 17 123/54 (77) 100 02/06/19 11:00 76 15 121/53 (75) 100 02/06/19 11:00 15 121/53 Mechanical Ventilator 50 02/06/19 10:30 50 02/06/19 10:30 77 31 50 02/06/19 10:30 77 16 126/56 (79) 100 02/06/19 10:00 15 128/57 Mechanical Ventilator 50 02/06/19 10:00 77 17 128/56 (80) 100 02/06/19 09:45 77 15 128/56 (80) 100 02/06/19 09:30 79 15 135/57 (83) 100 02/06/19 09:15 80 15 149/67 (94) 100 02/06/19 09:00 22 138/62 Mechanical Ventilator 50 02/06/19 09:00 82 26 138/62 (87) 100 02/06/19 08:46 79 37 80 02/06/19 08:45 80 27 133/61 (85) 100 02/06/19 08:30 78 18 136/60 (85) 100 02/06/19 08:15 80 20 128/66 (86) 100 02/06/19 08:00 80 02/06/19 08:00 79 02/06/19 08:00 18 129/58 Mechanical Ventilator 80 02/06/19 08:00 97.2 76 18 129/58 (81) 100 02/06/19 08:00 Mechanical Ventilator 02/06/19 07:45 77 23 129/58 (81) 100 02/06/19 07:30 75 15 133/59 (83) 100 02/06/19 07:15 74 14 133/59 (83) 100 02/06/19 07:01 80 02/06/19 07:00 73 26 125/65 (85) 100 02/06/19 07:00 26 129/55 Mechanical Ventilator 80 02/06/19 06:45 75 26 130/61 (84) 100 02/06/19 06:41 80 02/06/19 06:30 70 32 100 02/06/19 06:30 69 26 118/54 (75) 100 02/06/19 06:15 74 26 111/56 (74) 99 02/06/19 06:08 34 105/58 Mechanical Ventilator 100 02/06/19 06:00 97.3 61 16 105/58 (74) 100 02/06/19 05:52 100 02/06/19 05:45 100 02/06/19 05:45 85 20 132/75 (94) 100 02/06/19 05:30 61 15 100/50 (67) 100 02/06/19 05:08 72 34 100 02/06/19 05:00 71 19 137/69 (91) 92 02/06/19 04:45 69 35 111/89 (96) 95 02/06/19 04:30 73 20 124/100 (108) 92 02/06/19 04:22 95.4 114 18 124/65 94 Mechanical Ventilator 100.0 100 02/06/19 04:22 95.9 115 14 110/65 94 Mechanical Ventilator 100 02/06/19 04:00 Mechanical Ventilator 02/06/19 04:00 100 02/06/19 04:00 66 02/06/19 04:00 96.8 67 19 122/59 (80) 92 02/06/19 03:40 96.8 66 22 109/46 (67) 95 02/06/19 03:21 18 124/65 Mechanical Ventilator 100.0 100 02/06/19 03:18 Mechanical Ventilator 02/06/19 02:54 84 18 100 02/06/19 02:21 18 160/72 Mechanical Ventilator 100.0 100 02/06/19 01:37 113 14 100 02/06/19 01:30 95.4 145 14 162/78 97 Mechanical Ventilator 100 02/06/19 01:25 95.3 0 0 35/12 0 Bi-pap 02/06/19 00:45 97.6 89 18 145/75 100 Bi-pap 4.0 30 02/06/19 00:39 81 19 97 Facial 30 02/06/19 00:07 81 21 100 Bi-Pap 30 02/05/19 23:47 79 19 98 Bi-Pap 30 02/05/19 23:46 79 19 98 Bi-Pap 30 02/05/19 23:23 82 27 100 Bi-Pap 30 02/05/19 23:23 82 24 100 Bi-Pap 30 02/05/19 23:09 79 23 100 Bi-Pap 30 02/05/19 23:07 79 22 100 Bi-Pap 30 02/05/19 22:53 80 27 100 Bi-Pap 40 02/05/19 22:50 85 27 91 Nasal Cannula 4.0 36 02/05/19 22:50 80 27 100 Facial 40 02/05/19 22:45 99.0 89 26 124/70 98 Nasal Cannula 4.0 02/05/19 22:45 80 24 Nasal Cannula 4.0 02/05/19 22:28 99.0 80 24 124/70 (88) 98 Nasal Cannula 4.0 Intake and Output 02/05/19 02/06/19 19:00 07:00 Intake Total 413.34 ml Output Total 520 ml Balance -106.66 ml Intake Oral 0 ml IV Total 113.34 ml Blood Product 300 ml Output Urine Total 520 ml # Voids 1 Laboratory Tests Test 02/05/19 23:10 02/05/19 23:50 02/06/19 00:37 02/06/19 01:58 White Blood Count 14.4 K/UL (4.8-10.8) H Red Blood Count 2.27 M/UL (4.70-6.10) L Hemoglobin 6.4 G/DL (14.2-18.0) *L Hematocrit 19.4 % (42.0-52.0) L Mean Corpuscular Volume 86 FL (80-99) Mean Corpuscular Hemoglobin 28.0 PG (27.0-31.0) Mean Corpuscular Hemoglobin Concent 32.8 G/DL (32.0-36.0) Red Cell Distribution Width 14.2 % (11.6-14.8) Platelet Count 195 K/UL (150-450) Mean Platelet Volume 7.6 FL (6.5-10.1) Neutrophils (%) (Auto) % (45.0-75.0) Lymphocytes (%) (Auto) % (20.0-45.0) Monocytes (%) (Auto) % (1.0-10.0) Eosinophils (%) (Auto) % (0.0-3.0) Basophils (%) (Auto) % (0.0-2.0) Prothrombin Time 11.2 SEC (9.30-11.50) Prothromb Time International Ratio 1.1 (0.9-1.1) Activated Partial Thromboplast Time 32 SEC (23-33) Urine Color Pale yellow Urine Appearance Clear Urine pH 5 (4.5-8.0) Urine Specific Benedict 1.015 (1.005-1.035) Urine Protein 4+ (NEGATIVE) H Urine Glucose (UA) 3+ (NEGATIVE) H Urine Ketones Negative (NEGATIVE) Urine Blood 3+ (NEGATIVE) H Urine Nitrite Negative (NEGATIVE) Urine Bilirubin Negative (NEGATIVE) Urine Urobilinogen Normal MG/DL (0.0-1.0) Urine Leukocyte Esterase Negative (NEGATIVE) Urine RBC 5-10 /HPF (0 - 0) H Urine WBC 0-2 /HPF (0 - 0) Urine Squamous Epithelial Cells None /LPF (NONE/OCC) Urine Bacteria Few /HPF (NONE) Sodium Level 145 MMOL/L (136-145) Potassium Level 3.9 MMOL/L (3.5-5.1) Chloride Level 110 MMOL/L (98-107) H Carbon Dioxide Level 10 MMOL/L (21-32) L Anion Gap 25 mmol/L (5-15) H Blood Urea Nitrogen 95 mg/dL (7-18) H Creatinine 9.3 MG/DL (0.55-1.30) H Estimat Glomerular Filtration Rate 5.7 mL/min (>60) Glucose Level 121 MG/DL (74-106) H Lactic Acid Level 2.60 mmol/L (0.4-2.0) H 1.60 mmol/L (0.66-2.22) Calcium Level 7.6 MG/DL (8.5-10.1) L Total Bilirubin 0.7 MG/DL (0.2-1.0) Direct Bilirubin 0.2 MG/DL (0.0-0.3) Aspartate Amino Transf (AST/SGOT) 51 U/L (15-37) H Alanine Aminotransferase (ALT/SGPT) 42 U/L (12-78) Alkaline Phosphatase 133 U/L (46-116) H Total Creatine Kinase 245 U/L (26-308) Creatine Kinase MB 9.6 NG/ML (0.0-3.6) H Creatine Kinase MB Relative Index 3.9 Troponin I 0.238 ng/mL (0.000-0.056) Pro-B-Type Natriuretic Peptide > 95301 pg/mL (0-125) H Total Protein 7.5 G/DL (6.4-8.2) Albumin 2.8 G/DL (3.4-5.0) L Globulin 4.7 g/dL Albumin/Globulin Ratio 0.6 (1.0-2.7) L Lipase 374 U/L (73-393) Venous Blood pH 7.160 Venous Blood Partial Pressure CO2 22.6 Venous Blood Partial Pressure O2 43.9 Venous Blood HCO3 7.9 Venous Blood Total Carbon Dioxide 22.6 Venous Bld O2 Saturation (Measured) 43.9 Venous Blood Oxygen Saturation 65.3 Venous Blood Base Excess -19.1 Methemoglobin 1.0 Sodium (Blood Gas) Triglycerides Level 84 MG/DL (30-150) Test 02/06/19 04:54 02/06/19 06:12 02/06/19 07:45 02/06/19 08:09 Arterial Blood pH 6.899 (7.350-7.450) 7.216 (7.350-7.450) 7.282 (7.350-7.450) Arterial Blood Partial Pressure CO2 43.0 mmHg (35.0-45.0) 28.0 mmHg (35.0-45.0) L 24.0 mmHg (35.0-45.0) *L Arterial Blood Partial Pressure O2 72.5 mmHg (75.0-100.0) L 149.0 mmHg (75.0-100.0) H 250.6 mmHg (75.0-100.0) H Arterial Blood HCO3 8.2 mmol/L (22.0-26.0) *L 11.1 mmol/L (22.0-26.0) *L 11.1 mmol/L (22.0-26.0) *L Arterial Blood Oxygen Saturation 83.9 % (95-100) *L 98.0 % (95-100) 98.9 % (95-100) Arterial Blood Base Excess -23.3 (-2-2) *L -15.3 (-2-2) *L -14.2 (-2-2) *L Trevor Test Positive Positive Positive White Blood Count 18.3 K/UL (4.8-10.8) H Red Blood Count 2.50 M/UL (4.70-6.10) L Hemoglobin 7.2 G/DL (14.2-18.0) L Hematocrit 22.5 % (42.0-52.0) L Mean Corpuscular Volume 90 FL (80-99) Mean Corpuscular Hemoglobin 29.0 PG (27.0-31.0) Mean Corpuscular Hemoglobin Concent 32.1 G/DL (32.0-36.0) Red Cell Distribution Width 14.3 % (11.6-14.8) Platelet Count 153 K/UL (150-450) Mean Platelet Volume 8.1 FL (6.5-10.1) Neutrophils (%) (Auto) % (45.0-75.0) Lymphocytes (%) (Auto) % (20.0-45.0) Monocytes (%) (Auto) % (1.0-10.0) Eosinophils (%) (Auto) % (0.0-3.0) Basophils (%) (Auto) % (0.0-2.0) Differential Total Cells Counted 100 Neutrophils % (Manual) 97 % (45-75) H Lymphocytes % (Manual) 1 % (20-45) L Monocytes % (Manual) 2 % (1-10) Eosinophils % (Manual) 0 % (0-3) Basophils % (Manual) 0 % (0-2) Band Neutrophils 0 % (0-8) Nucleated Red Blood Cells 5 /100 WBC Platelet Estimate Adequate Platelet Morphology Normal Hypochromasia 3+ Anisocytosis 1+ Sodium Level 152 MMOL/L (136-145) H Potassium Level 3.7 MMOL/L (3.5-5.1) Chloride Level 117 MMOL/L (98-107) H Carbon Dioxide Level 16 MMOL/L (21-32) L Anion Gap 20 mmol/L (5-15) H Blood Urea Nitrogen 94 mg/dL (7-18) H Creatinine 8.5 MG/DL (0.55-1.30) H Estimat Glomerular Filtration Rate 6.3 mL/min (>60) Glucose Level 190 MG/DL (74-106) H Calcium Level 6.4 MG/DL (8.5-10.1) L Total Bilirubin 1.0 MG/DL (0.2-1.0) Aspartate Amino Transf (AST/SGOT) 549 U/L (15-37) H Alanine Aminotransferase (ALT/SGPT) 251 U/L (12-78) H Alkaline Phosphatase 118 U/L (46-116) H Troponin I 0.316 ng/mL (0.000-0.056) Total Protein 5.8 G/DL (6.4-8.2) L Albumin 2.1 G/DL (3.4-5.0) L Globulin 3.7 g/dL Albumin/Globulin Ratio 0.6 (1.0-2.7) L Test 02/06/19 11:55 02/06/19 12:56 Troponin I 0.330 ng/mL (0.000-0.056) Fentanyl Level Pending Norfentanyl Level Pending Arterial Blood pH 7.224 (7.350-7.450) Arterial Blood Partial Pressure CO2 19.6 mmHg (35.0-45.0) *L Arterial Blood Partial Pressure O2 151.2 mmHg (75.0-100.0) H Arterial Blood HCO3 7.9 mmol/L (22.0-26.0) *L Arterial Blood Oxygen Saturation 98.0 % (95-100) Arterial Blood Base Excess -18.0 (-2-2) *L Trevor Test Positive Microbiology Date/Time Source Procedure Growth Status 02/06/19 03:00 Rectum Received Height (Feet): 5 Height (Inches): 3.00 Weight (Pounds): 128 Medications Current Medications Medications (Trade) Dose Ordered Sig/Joe Route PRN Reason Start Time Stop Time Status Last Admin Dose Admin Acetaminophen (Tylenol) 650 mg Q4H PRN ORAL Mild Pain/Temp > 100.5 02/06/19 05:45 03/08/19 05:44 Al Hydroxide/Mg Hydroxide (Mylanta) 30 ml PRN ORAL 02/06/19 05:45 03/08/19 05:44 Albuterol/ Ipratropium (Albuterol/ Ipratropium) 3 ml Q4HRT HHN 02/06/19 15:00 02/11/19 14:59 02/06/19 15:10 Chlorhexidine Gluconate (Falguni-Hex 2%) 1 applic DAILY@2000 TOPIC 02/06/19 20:00 03/08/19 19:59 Dextrose (Dextrose 50%) 25 ml Q30M PRN IV Hypoglycemia 02/06/19 11:30 03/08/19 11:29 Dextrose (Dextrose 50%) 50 ml Q30M PRN IV Hypoglycemia 02/06/19 11:30 03/08/19 11:29 Epoetin Mayo (Epoetin Mayo(ESRD on dialysis)) 10,000 unit MON-MON-MON SUBQ 02/06/19 21:00 03/08/19 20:59 Fentanyl Citrate 1000 mcg/Sodium Chloride 100 ml @ 0 mls/hr Q24H IV 02/06/19 10:30 02/13/19 10:29 02/06/19 14:28 Heparin Sodium (Porcine) (Heparin 5000 units/ml) 5,000 units EVERY 12 HOURS SUBQ 02/06/19 09:00 03/08/19 08:59 02/06/19 08:16 Heparin Sodium (Porcine) (Heparin Sod 1000 units/ml 10ml) 2,000 unit ONCE IV 02/07/19 11:45 02/12/19 11:44 Heparin Sodium (Porcine) (Heparin) 1,000 unit POSTHD INJ 02/07/19 11:45 03/09/19 11:44 Heparin Sodium/ Sodium Chloride (Heparin 1000 units/500ml Premix) 1,000 unit ONCE IV 02/06/19 11:30 02/06/19 23:59 Hydrocortisone (Solu-CORTEF) 60 mg EVERY 12 HOURS IV 02/06/19 11:30 03/08/19 11:29 02/06/19 11:39 Insulin Aspart (NovoLOG) Q6HR SUBQ 02/06/19 12:00 03/08/19 11:59 Iron Sucrose 100 mg/Sodium Chloride 60 ml @ 240 mls/hr BEDTIME IV 02/06/19 21:00 02/10/19 21:14 Lansoprazole (Prevacid) 30 mg DAILY NG 02/06/19 09:00 03/08/19 08:59 02/06/19 09:53 Lidocaine HCl (Xylocaine 1% 30ml) 30 ml ONCE INJ 02/06/19 11:30 02/06/19 23:59 Meropenem 500 mg/ Sodium Chloride 55 ml @ 110 mls/hr DAILY IVPB 02/06/19 13:00 02/11/19 12:59 02/06/19 13:54 Propofol 100 ml @ 0 mls/hr Q24H IV 02/06/19 05:45 02/08/19 05:44 02/06/19 12:50 Sodium Bicarbonate 100 ml/Dextrose 1,100 ml @ 60 mls/hr [id number] IV 02/06/19 14:30 03/08/19 14:29 02/06/19 15:51 Sodium Chloride 1,000 ml @ 500 mls/hr Q2H PRN IVLG sbp<90 during hd 02/07/19 11:38 03/09/19 11:37 Assessment/Plan Problem List: (1) ARDS (adult respiratory distress syndrome) ICD Codes: J80 - Acute respiratory distress syndrome SNOMED: 00286775, 75227164 (2) Anemia ICD Codes: D64.9 - Anemia, unspecified SNOMED: 083189823 (3) Elevated troponin ICD Codes: R74.8 - Abnormal levels of other serum enzymes SNOMED: 270223034, 783793037, 254140464 (4) MARY (acute kidney injury) ICD Codes: N17.9 - Acute kidney failure, unspecified SNOMED: 13303521, 9165462, 119892195 (5) COPD with exacerbation ICD Codes: J44.1 - Chronic obstructive pulmonary disease with (acute) exacerbation SNOMED: 082002035 (6) Abnormal LFTs Assessment & Plan: Abnormalities likely from shock liver. Ultrasound ordered Trend labs ICD Codes: R94.5 - Abnormal results of liver function studies SNOMED: 105312887 (7) COPD (chronic obstructive pulmonary disease) ICD Codes: J44.9 - Chronic obstructive pulmonary disease, unspecified SNOMED: 09655120 (8) Respiratory distress ICD Codes: R06.03 - Acute respiratory distress SNOMED: 039161299 (9) Pneumonia ICD Codes: J18.9 - Pneumonia, unspecified organism SNOMED: 810618500 (10) HTN (hypertension) ICD Codes: I10 - Essential (primary) hypertension SNOMED: 97060716 (11) Epileptic seizure, generalized ICD Codes: G40.309 - Generalized idiopathic epilepsy and epileptic syndromes, not intractable, without status epilepticus SNOMED: 46976088 (12) Shock liver Assessment & Plan: Shock liver likely from hypotension and cardiovascular arrest. Resuscitation with IV fluids ICU care and management Trend labs We will follow with recommendations ICD Codes: K72.00 - Acute and subacute hepatic failure without coma SNOMED: 483857682 (13) Suprapubic catheter ICD Codes: Z93.59 - Other cystostomy status SNOMED: 971496117, 568287813 Hari Batres Feb 06, 2019 17:26
--- NOTE | 2019-02-06 17:29 | Operative Note - PDOC ---
Operative Note Operative Note Date of Operation/Procedure: Feb 06, 2019 Pre-op Diagnosis: shock renal insufficiency critical care sepsis Procedure: right femoral temporary hemodialysis catheter insertion Post-op Diagnosis: same as pre-op Surgeon: darby Anesthesia: local Specimen: none Complications: none Condition: unstable Estimated Blood Loss: minimal Drains: none Implant(s) used?: No Indications for Procedure Patient is a 68-year-old male history of COPD, CAD, afib, hypertension, hyperlipidemia, diabetes, bilateral amputations, CKD, Anemia, presented with acute shortness of breath, patient was diagnosed with pneumonia in outside hospital previously. He complained of acute shortness of breath for 3 hours. Patient coded in the ED, intubated and placed on Mechanical Ventilation. Sepsis , shock, renal insufficiency. Urgent hemodialysis indicating recommended as per radar engineer. Temporary even as catheter insertion indicated and recommended. Unfortunately patient unable to consent and given current condition emergency and medically necessary. Description of Procedure Patient was made comfortable the bedside. Patient was placed in the supine position. The right groin was prepped and draped in standard surgical fashion. Timeout was taken identifying the patient procedure and staff. Local anesthetic was infiltrated in the proposed site. Anatomic land garcia were identified and the femoral artery was palpated. A finder needle was used and on first attempt the right femoral vein was cannulated. Good venous flows was as identified. The guidewire was placed through the needle and the needle removed. Small incision was made around the guidewire. Dilators were used and the tract was dilated. The temporary even as catheter was tunneled and inserted through the guidewire without complication. The guidewire was removed and discarded. The hemodialysis catheter ports flushed and aspirated without complication. Lines were flushed and catheter was sutured in place followed by dressings. Patient taught procedure well and is ready for hemodialysis thank you Hari Batres Feb 06, 2019 17:29
--- NOTE | 2019-02-06 17:30 | NUR ---
NURSE NOTES: DR EVANS CAME AND PLACED THE KIRSTIE CATH ON R FEMORAL. NO SIGNS OF DISTRESS. WILL CONTINUE TO MONITOR.
--- NOTE | 2019-02-06 18:00 | NUR ---
NURSE NOTES: BLOOD TRANSFUSION DONE. NO NOTED REACTION. PATIENT KEPT CLEAN AND DRY. ORAL CARE DONE.W ILL CONTINUE TO MONITOR.
[2019-02-06 19:15] LABS: HEMATOCRIT 28.6 % (42.0-52.0); HEMOGLOBIN 9.4 G/DL (14.2-18.0); MEAN CORPUSCULAR VOLUME 88 FL (80-99); PLATELET COUNT 145 K/UL (150-450); RED BLOOD COUNT 3.26 M/UL (4.70-6.10); RED CELL DISTRIBUTION WIDTH 13.5 % (11.6-14.8)
[2019-02-06 19:27] LABS: ANION GAP 27 mmol/L (5-15); BLOOD UREA NITROGEN 102 mg/dL (7-18); CALCIUM 6.8 MG/DL (8.5-10.1); CARBON DIOXIDE 10 MMOL/L (21-32); CHLORIDE 111 MMOL/L (98-107); CREATININE 8.7 MG/DL (0.55-1.30); POTASSIUM 3.7 MMOL/L (3.5-5.1); SODIUM 148 MMOL/L (136-145)
[2019-02-06 19:36] LABS: WHITE BLOOD COUNT 22.5 K/UL (4.8-10.8)
--- NOTE | 2019-02-06 19:41 | NUR ---
NURSE NOTES: CALLED AND SPOKE ROMI HENAO THAT PATIENT HAS THE LINE.
--- NOTE | 2019-02-06 19:42 | NUR ---
NURSE NOTES: HAND-OFF: Report given to Geronimo Chin RN.
[2019-02-06 19:45] LABS: INR 1.1 (0.9-1.1)
[2019-02-06] MEDS ORDERED: Heparin1,000 units/500ml Premix(Conc:2 units/ml) IV PRN (20:00)
[2019-02-06] MEDS ORDERED: Lidocaine 1% Plain 30 ml INJ PRN (20:00)
--- NOTE | 2019-02-06 20:00 | NUR ---
NURSE NOTES: Received pt in no acute distress. Opens eyes to name, restless and agitated at this time. Confused; non verbal.Orally intubated with #7.5 ETT placed over right lip at 23 cm with vent settings of AC 26, TV550 fiO2.50 peep10. Secretions scanty, tannish; chest sounds with scattered rhonchi. OGT in place, currently clamped, remains NPO. NSR on the monitor, afebrile, BP stable. Left femoral TLC intact; IVF of D5W with 2 amps Na Bicarb infusing at 60ml/h. Fentanyl gtt infusing at 150mcg/h; increased to 200mcg as pt is very agitated. Bilat soft wrist restraints in place.suprapubic cath intact draining clear straw urine. s/p BBKA; stumps well healed. Will monitor sedation status to maintain RASS-2.
[2019-02-06] MEDS ORDERED: ATROPINE SULFAT15 ML OP (20:23)
[2019-02-06] MEDS ORDERED: COSOPT1 DRO2 BOTH EYES (20:26)
[2019-02-06] MEDS ORDERED: FISH OIL 500 M1 EAC1 PO (20:28)
[2019-02-06] MEDS ORDERED: RENA-VITE TABL0.8 M1 PO (20:35)
[2019-02-06] MEDS ORDERED: ACETAMINOPHEN325 M1 ORAL (20:38)
[2019-02-06] MEDS ORDERED: VITAMIN D250000 UNI1 ORAL (20:44)
[2019-02-06] MEDS ORDERED: Epoetin Alfa-EPBX (NON ESRD)10,000 unit/ml vial SUBQ SCH (21:00)
[2019-02-06] MEDS: Dyna-Hex 2% Top Sol 2oz TOPIC SCH (21:01)
[2019-02-06] MEDS: Epoetin Alfa-EPBX(ESRD on dialysis)10,000 unit/ml vial SUBQ SCH (21:02)
[2019-02-06] MEDS: Iron Sucrose 100 MG in NS 55 ML IV SCH (21:15)
--- NOTE | 2019-02-06 22:00 | Consultation ---
DATE OF CONSULTATION: 02/06/2019 CARDIOLOGY CONSULTATION CONSULTING PHYSICIAN: Jamari Gale M.D. REFERRING PHYSICIAN: Theo Noriega M.D. REASON FOR CONSULTATION: Cardiac arrest with elevated troponin level. HISTORY OF PRESENT ILLNESS: This is a 68-year-old male, who resides [facility] a [facility] facility and came to the emergency room with complaints of several hours of shortness of breath. He was recently diagnosed with pneumonia. He has a history of smoking. In the emergency room, he had suffered a full arrest requiring intubation and initiation of mechanical ventilation. His troponin levels were subsequently elevated and I have been asked to assist with further care. PAST MEDICAL HISTORY: Includes hypertension, type 2 diabetes mellitus, hyperlipidemia, coronary artery disease, paroxysmal atrial fibrillation, COPD, peripheral artery disease with bilateral amputation of the lower extremities, chronic kidney disease due to diabetic nephropathy, anemia of chronic kidney disease and chronic disease, and gastroesophageal reflux disease. ALLERGIES: None. MEDICATIONS: Prior to admission, reviewed and reconciled. FAMILY HISTORY: Not known. SOCIAL HISTORY: There is a prior history of both alcohol abuse and smoking. REVIEW OF SYSTEMS: Not obtainable from the patient. Records from penitentiary facilities have been reviewed x20 minutes and pertinent data as outlined above. PHYSICAL EXAMINATION: VITAL SIGNS: Blood pressure 128/56, pulse 77, and respirations 17. Presently afebrile. GENERAL: Mild temporal wasting. HEENT: Conjunctivae pink. Orally intubated. LUNGS: Bilateral breath sounds with rhonchi. CARDIAC: Regular rhythm and rate. Normal S1, S2 with no murmur. ABDOMEN: Soft. EXTREMITIES: With amputation. Central line site is without bleeding. LABORATORY DATA: Sodium 152, potassium 3.7, chloride 117, bicarb 16, BUN 94, and creatinine 8.5. AST and ALT 549/251. Troponin 0.316. Albumin 2.1. ABG on presentation 6.88/43/72. White count is 18.3, hemoglobin 7.2. IMPRESSION: 1. Status post full arrest. 2. Acute myocardial ischemia and possible [id number] myocardial infarction. 3. Severe anemia. 4. Severe metabolic and respiratory acidosis. 5. Probable sepsis. 6. Healthcare-acquired pneumonia. 7. Diabetes mellitus. 8. Metabolic acidosis. 9. Paroxysmal atrial fibrillation. 10. Dehydration. 11. Hypernatremia. Condition is critical. Prognosis is guarded. PLAN: 1. Ventilator support. 2. Broad spectrum antibiotics. 3. IV fluids with bicarb. 4. Serial troponins. 5. Once hemodynamically stabilized can add beta artis, anti-platelet therapy if no bleeding complications. 6. Serial blood gases and with adjustment of ventilator settings and IV fluids accordingly. 7. Hypotonic hydration. Jamari Gale M.D. DR: SEN JOB#: [id number] CC:
--- NOTE | 2019-02-06 22:00 | NUR ---
NURSE NOTES: Keeps sliding down. Repositoned, suctioned orally. No distress, VSS. Calm, asleep
[2019-02-07] VITALS (52 sets, daily range): BP systolic 130–164; BP diastolic 52–70
--- NOTE | 2019-02-07 | NUR ---
NURSE NOTES: Afebrile, Bp stable. Right femoral Junior cath intact. Left femoral TLC patent. Adequately sedated to RASS-2 with Fentanyl gtt at 200mcg/h. SPC patent.
--- NOTE | 2019-02-07 02:00 | NUR ---
NURSE NOTES: sleeping, no distress, VSS
[2019-02-07] MEDS: Albuterol/Ipratropium 3ml neb HHN SCH ×6 (03:08→23:03)
--- NOTE | 2019-02-07 04:00 | NUR ---
NURSE NOTES: Awake, mildly restless. No BM. Complete bath given. SPC exit site clean, no drainage, Penile shaft redressed with dry 4x4, no drainage, no bleeding. Skin remains dry and intact. Fentanyl gtt continues at 200mcg/h. VSS, no distress, afebrile
[2019-02-07 05:32] LABS: HEMATOCRIT 28.9 % (42.0-52.0); HEMOGLOBIN 9.5 G/DL (14.2-18.0); MEAN CORPUSCULAR VOLUME 88 FL (80-99); PLATELET COUNT 140 K/UL (150-450); RED BLOOD COUNT 3.28 M/UL (4.70-6.10); RED CELL DISTRIBUTION WIDTH 13.7 % (11.6-14.8); WHITE BLOOD COUNT 16.8 K/UL (4.8-10.8)
[2019-02-07 05:47] LABS: ANION GAP 22 mmol/L (5-15); BLOOD UREA NITROGEN 102 mg/dL (7-18); CALCIUM 6.6 MG/DL (8.5-10.1); CARBON DIOXIDE 15 MMOL/L (21-32); CHLORIDE 111 MMOL/L (98-107); POTASSIUM 2.9 MMOL/L (3.5-5.1); SODIUM 148 MMOL/L (136-145)
[2019-02-07] MEDS: NovoLOG Insulin Flexpen SUBQ SCH ×3 (05:55→17:57)
--- NOTE | 2019-02-07 07:00 | NUR ---
HAND-OFF: Report given to Saurabh NICHOLAS.
--- NOTE | 2019-02-07 07:01 | NUR ---
NURSE NOTES: RECEIVED PATIENT FROM Geronimo RAE RN. PATIENT IS SEEN RESTING IN BED, SLIGHTY SEDATED. HOOKED LIGHT ADJUSTER, HR OF 79. ORALLY INTUBATED. ETT 7.5 AT 23CM LIP LINE. VENT SETTINGS OF AC 26, TV 550, FiO2 40%, PEEP 10. NO SIGS OF CARDIO OR RESPI DISTRESS OF THE MOMENT. NOTED OGT BUT STIL ON NPO. NOTED BW RESTRAINTS, NOTED TO BE PULLING OFF OBJECTS. WITH SUPRAPUBIC CATH, CONNECTED TO BAG. IV ON R FA G2O, SL AND L FEMORAL TLC WITH FENTANYL RUNNING AT 200MCG/HR FOLLOWING HOSPITAL PROTOCOL. HOB ELEVATED. CALL LIGHT WITHIN REACH. BED AT LOWEST POSITION. SIDE RAILS UP. WILL CONTINUE TO MONITOR.
--- NOTE | 2019-02-07 07:09 | NUR ---
RESPIRATORY NOTE: received pt orally intubated with ETT 7.5 placed 23cm at the lip, secured via anchor fast. no redness or visible skin tears. pt sedated and restless. current vent settings in place with no resp distress noted. alarms are set and audible with ambubag at bedside. will cont to monitor.
[2019-02-07] MEDS: Meropenem 500 MG in NS 55 ML IVPB SCH (08:30)
[2019-02-07] MEDS: Hydrocortisone 100mg Inj IV SCH ×2 (08:30→20:47)
[2019-02-07] MEDS: Heparin 5000 units/ml inj SUBQ SCH ×2 (08:32→20:48)
[2019-02-07] MEDS: Sodium Bicarbonate 100 ML in D5W 1000ml 1,000 ML IV SCH (08:40)
--- NOTE | 2019-02-07 08:49 | Critical Care Progress Note ---
Assessment/Plan Assessment/Plan Impression: Respiratory failure, acute Chronic Obstructive Pulmonary Disease with exacerbation Pneumonia Acute kidney injury, h/o Chronic Kidney Disease Elevated troponin Anemia Congestive Heart Failure Previous Atrial Fibrillation Coronary Artery Disease Hypertension Hyperlipidemia Diabetes Bilateral amputations GERD ETOH abuse Plan AC Mechanical Ventilation- hypervent; repeat ABG off pressors and monitor IV Antibiotics- ID noted HHN Monitor labs LE dupplex - SCD if negative Transfuse as needed HD for now [facility] and Renal Consultation medications/laboratory data/nursing notes/ICU care reviewed in detail note reviewed and edited care discussed with RN and RT ICU time spent 40 minutes Critical Care - Subjective Interval Events: remains ill dillan placed in ICU consultants appreciated ROS Limited/Unobtainable: Yes Condition: critical EKG Rhythm: Sinus Rhythm I&O: Intake and Output 02/06/19 02/07/19 19:00 07:00 Intake Total 1499.34 ml 1180 ml Output Total 515 ml 410 ml Balance 984.34 ml 770 ml Intake Oral 0 ml Free Water 200 ml 200 ml IV Total 799.34 ml 980 ml Blood Product 500 ml Output Urine Total 515 ml 410 ml Critical Care - Objective ET-Tube: 7.5 ET Position: 23 Last 24 Hour Vital Signs Date Time Temp Pulse Resp B/P (MAP) Pulse Ox O2 Delivery O2 Flow Rate FiO2 02/07/19 08:28 26 Mechanical Ventilator 40 02/07/19 08:27 26 Mechanical Ventilator 40 02/07/19 08:00 26 Mechanical Ventilator 40 02/07/19 08:00 Mechanical Ventilator 02/07/19 08:00 40 02/07/19 08:00 81 26 141/58 (85) 99 02/07/19 07:30 81 23 140/57 (84) 99 02/07/19 07:10 78 26 100 Mechanical Ventilator 40 02/07/19 07:03 80 26 40 02/07/19 07:02 82 26 95 Mechanical Ventilator 40 02/07/19 07:00 26 Mechanical Ventilator 40 02/07/19 07:00 79 26 140/57 (84) 99 02/07/19 06:00 80 26 130/55 (80) 98 02/07/19 06:00 26 Mechanical Ventilator 40 02/07/19 05:30 79 26 140/56 (84) 100 02/07/19 05:00 79 26 140/57 (84) 100 02/07/19 05:00 26 Mechanical Ventilator 40 02/07/19 05:00 79 26 40 50 02/07/19 04:30 79 26 139/56 (83) 100 02/07/19 04:00 98.7 79 26 133/56 (81) 02/07/19 04:00 Mechanical Ventilator 02/07/19 04:00 26 Mechanical Ventilator 50 02/07/19 04:00 50 02/07/19 04:00 78 02/07/19 03:30 79 26 141/56 (84) 100 02/07/19 03:19 78 26 100 Mechanical Ventilator 40 02/07/19 03:07 77 26 100 Mechanical Ventilator 40 02/07/19 03:06 77 26 40 50 02/07/19 03:00 77 26 134/53 (80) 100 02/07/19 02:58 26 Mechanical Ventilator 50 02/07/19 02:30 78 26 133/52 (79) 100 02/07/19 02:00 26 Mechanical Ventilator 50 02/07/19 02:00 78 26 133/53 (79) 100 02/07/19 01:30 79 26 131/53 (79) 100 02/07/19 01:00 26 Mechanical Ventilator 50 02/07/19 01:00 81 26 136/53 (80) 100 02/07/19 00:37 82 26 40 50 02/07/19 00:30 82 26 144/58 (86) 100 02/07/19 00:00 76 02/07/19 00:00 24 Mechanical Ventilator 50 02/07/19 00:00 50 02/07/19 00:00 98.8 79 26 143/58 (86) 100 02/07/19 00:00 Mechanical Ventilator 02/06/19 23:36 92 26 100 Mechanical Ventilator 40 02/06/19 23:30 85 22 131/51 (77) 99 02/06/19 23:26 75 26 100 Mechanical Ventilator 40 02/06/19 23:25 75 26 40 50 02/06/19 23:00 76 26 128/53 (78) 100 02/06/19 23:00 22 Mechanical Ventilator 50 02/06/19 22:00 77 26 123/49 (73) 99 02/06/19 21:59 Mechanical Ventilator 40 02/06/19 21:30 77 26 127/48 (74) 99 02/06/19 21:00 77 26 123/53 (76) 99 02/06/19 21:00 26 Mechanical Ventilator 50 02/06/19 20:43 78 26 40 50 02/06/19 20:30 84 25 122/52 (75) 98 02/06/19 20:00 98.8 80 26 126/51 (76) 97 02/06/19 20:00 26 Mechanical Ventilator 50 02/06/19 20:00 78 02/06/19 20:00 50 02/06/19 20:00 Mechanical Ventilator 02/06/19 19:30 85 22 132/116 (121) 98 02/06/19 19:30 102 26 100 Mechanical Ventilator 40 02/06/19 19:15 75 26 117/56 (76) 100 02/06/19 19:13 77 28 98 Mechanical Ventilator 40 02/06/19 19:10 77 28 40 50 02/06/19 19:00 79 24 115/65 (82) 100 02/06/19 19:00 24 Mechanical Ventilator 50 02/06/19 18:45 78 19 120/52 (74) 24 02/06/19 18:30 77 19 114/69 (84) 100 02/06/19 18:15 86 22 114/69 (84) 99 02/06/19 18:00 86 21 126/52 (76) 99 02/06/19 18:00 21 Mechanical Ventilator 50 02/06/19 17:45 77 17 129/58 (81) 100 02/06/19 17:30 82 20 118/103 (108) 100 02/06/19 17:30 20 118/103 Mechanical Ventilator 50 02/06/19 17:15 75 20 124/57 (79) 100 02/06/19 17:00 78 18 115/60 (78) 100 02/06/19 17:00 18 Mechanical Ventilator 50 02/06/19 17:00 18 115/60 Mechanical Ventilator 50 02/06/19 16:52 73 30 50 02/06/19 16:45 80 22 118/51 (73) 99 02/06/19 16:30 73 19 120/51 (74) 100 02/06/19 16:15 73 19 118/52 (74) 99 02/06/19 16:00 97.4 76 14 126/72 (90) 100 02/06/19 16:00 18 Mechanical Ventilator 50 02/06/19 16:00 18 123/55 Mechanical Ventilator 100 02/06/19 16:00 72 02/06/19 16:00 Mechanical Ventilator 02/06/19 16:00 50 02/06/19 15:30 83 29 120/47 (71) 99 02/06/19 15:20 77 31 100 Mechanical Ventilator 50 02/06/19 15:15 78 21 130/55 (80) 99 02/06/19 15:10 81 31 98 Mechanical Ventilator 50 02/06/19 15:09 75 29 50 02/06/19 15:00 28 Mechanical Ventilator 50 02/06/19 15:00 28 121/58 Mechanical Ventilator 50 02/06/19 15:00 82 28 121/58 (79) 100 02/06/19 14:45 82 23 129/51 (77) 97 02/06/19 14:30 85 22 136/114 (121) 99 02/06/19 14:28 19 Mechanical Ventilator 50 02/06/19 14:00 73 17 124/54 (77) 100 02/06/19 14:00 16 124/54 Mechanical Ventilator 50 02/06/19 12:50 74 31 50 02/06/19 12:50 14 126/54 Mechanical Ventilator 50 02/06/19 12:30 75 17 126/54 (78) 100 02/06/19 12:00 98.0 74 18 123/51 (75) 100 02/06/19 12:00 73 02/06/19 12:00 Mechanical Ventilator 02/06/19 12:00 18 123/51 Mechanical Ventilator 50 02/06/19 12:00 50 02/06/19 11:30 74 17 123/54 (77) 100 02/06/19 11:00 76 15 121/53 (75) 100 02/06/19 11:00 15 121/53 Mechanical Ventilator 50 02/06/19 10:30 50 02/06/19 10:30 77 31 50 02/06/19 10:30 77 16 126/56 (79) 100 02/06/19 10:00 15 128/57 Mechanical Ventilator 50 02/06/19 10:00 77 17 128/56 (80) 100 02/06/19 09:45 77 15 128/56 (80) 100 02/06/19 09:30 79 15 135/57 (83) 100 02/06/19 09:15 80 15 149/67 (94) 100 02/06/19 09:00 22 138/62 Mechanical Ventilator 50 02/06/19 09:00 82 26 138/62 (87) 100 Labs: Labs Test 02/05/19 23:10 02/05/19 23:50 02/06/19 00:37 02/06/19 01:58 White Blood Count 14.4 K/UL (4.8-10.8) Red Blood Count 2.27 M/UL (4.70-6.10) Hemoglobin 6.4 G/DL (14.2-18.0) Hematocrit 19.4 % (42.0-52.0) Mean Corpuscular Volume 86 FL (80-99) Mean Corpuscular Hemoglobin 28.0 PG (27.0-31.0) Mean Corpuscular Hemoglobin Concent 32.8 G/DL (32.0-36.0) Red Cell Distribution Width 14.2 % (11.6-14.8) Platelet Count 195 K/UL (150-450) Mean Platelet Volume 7.6 FL (6.5-10.1) Neutrophils (%) (Auto) % (45.0-75.0) Lymphocytes (%) (Auto) % (20.0-45.0) Monocytes (%) (Auto) % (1.0-10.0) Eosinophils (%) (Auto) % (0.0-3.0) Basophils (%) (Auto) % (0.0-2.0) Prothrombin Time 11.2 SEC (9.30-11.50) Prothromb Time International Ratio 1.1 (0.9-1.1) Activated Partial Thromboplast Time 32 SEC (23-33) Urine Color Pale yellow Urine Appearance Clear Urine pH 5 (4.5-8.0) Urine Specific Cando 1.015 (1.005-1.035) Urine Protein 4+ (NEGATIVE) Urine Glucose (UA) 3+ (NEGATIVE) Urine Ketones Negative (NEGATIVE) Urine Blood 3+ (NEGATIVE) Urine Nitrite Negative (NEGATIVE) Urine Bilirubin Negative (NEGATIVE) Urine Urobilinogen Normal MG/DL (0.0-1.0) Urine Leukocyte Esterase Negative (NEGATIVE) Urine RBC 5-10 /HPF (0 - 0) Urine WBC 0-2 /HPF (0 - 0) Urine Squamous Epithelial Cells None /LPF (NONE/OCC) Urine Bacteria Few /HPF (NONE) Sodium Level 145 MMOL/L (136-145) Potassium Level 3.9 MMOL/L (3.5-5.1) Chloride Level 110 MMOL/L (98-107) Carbon Dioxide Level 10 MMOL/L (21-32) Anion Gap 25 mmol/L (5-15) Blood Urea Nitrogen 95 mg/dL (7-18) Creatinine 9.3 MG/DL (0.55-1.30) Estimat Glomerular Filtration Rate 5.7 mL/min (>60) Glucose Level 121 MG/DL (74-106) Lactic Acid Level 2.60 mmol/L (0.4-2.0) 1.60 mmol/L (0.66-2.22) Calcium Level 7.6 MG/DL (8.5-10.1) Total Bilirubin 0.7 MG/DL (0.2-1.0) Direct Bilirubin 0.2 MG/DL (0.0-0.3) Aspartate Amino Transf (AST/SGOT) 51 U/L (15-37) Alanine Aminotransferase (ALT/SGPT) 42 U/L (12-78) Alkaline Phosphatase 133 U/L (46-116) Total Creatine Kinase 245 U/L (26-308) Creatine Kinase MB 9.6 NG/ML (0.0-3.6) Creatine Kinase MB Relative Index 3.9 Troponin I 0.238 ng/mL (0.000-0.056) Pro-B-Type Natriuretic Peptide > 92864 pg/mL (0-125) Total Protein 7.5 G/DL (6.4-8.2) Albumin 2.8 G/DL (3.4-5.0) Globulin 4.7 g/dL Albumin/Globulin Ratio 0.6 (1.0-2.7) Lipase 374 U/L (73-393) Venous Blood pH 7.160 Venous Blood Partial Pressure CO2 22.6 Venous Blood Partial Pressure O2 43.9 Venous Blood HCO3 7.9 Venous Blood Total Carbon Dioxide 22.6 Venous Bld O2 Saturation (Measured) 43.9 Venous Blood Oxygen Saturation 65.3 Venous Blood Base Excess -19.1 Methemoglobin 1.0 Sodium (Blood Gas) Triglycerides Level 84 MG/DL (30-150) Test 02/06/19 04:54 02/06/19 06:12 02/06/19 07:45 02/06/19 08:09 Arterial Blood pH 6.899 (7.350-7.450) 7.216 (7.350-7.450) 7.282 (7.350-7.450) Arterial Blood Partial Pressure CO2 43.0 mmHg (35.0-45.0) 28.0 mmHg (35.0-45.0) 24.0 mmHg (35.0-45.0) Arterial Blood Partial Pressure O2 72.5 mmHg (75.0-100.0) 149.0 mmHg (75.0-100.0) 250.6 mmHg (75.0-100.0) Arterial Blood HCO3 8.2 mmol/L (22.0-26.0) 11.1 mmol/L (22.0-26.0) 11.1 mmol/L (22.0-26.0) Arterial Blood Oxygen Saturation 83.9 % (95-100) 98.0 % (95-100) 98.9 % (95-100) Arterial Blood Base Excess -23.3 (-2-2) -15.3 (-2-2) -14.2 (-2-2) Trevor Test Positive Positive Positive White Blood Count 18.3 K/UL (4.8-10.8) Red Blood Count 2.50 M/UL (4.70-6.10) Hemoglobin 7.2 G/DL (14.2-18.0) Hematocrit 22.5 % (42.0-52.0) Mean Corpuscular Volume 90 FL (80-99) Mean Corpuscular Hemoglobin 29.0 PG (27.0-31.0) Mean Corpuscular Hemoglobin Concent 32.1 G/DL (32.0-36.0) Red Cell Distribution Width 14.3 % (11.6-14.8) Platelet Count 153 K/UL (150-450) Mean Platelet Volume 8.1 FL (6.5-10.1) Neutrophils (%) (Auto) % (45.0-75.0) Lymphocytes (%) (Auto) % (20.0-45.0) Monocytes (%) (Auto) % (1.0-10.0) Eosinophils (%) (Auto) % (0.0-3.0) Basophils (%) (Auto) % (0.0-2.0) Differential Total Cells Counted 100 Neutrophils % (Manual) 97 % (45-75) Lymphocytes % (Manual) 1 % (20-45) Monocytes % (Manual) 2 % (1-10) Eosinophils % (Manual) 0 % (0-3) Basophils % (Manual) 0 % (0-2) Band Neutrophils 0 % (0-8) Nucleated Red Blood Cells 5 /100 WBC Platelet Estimate Adequate Platelet Morphology Normal Hypochromasia 3+ Anisocytosis 1+ Sodium Level 152 MMOL/L (136-145) Potassium Level 3.7 MMOL/L (3.5-5.1) Chloride Level 117 MMOL/L (98-107) Carbon Dioxide Level 16 MMOL/L (21-32) Anion Gap 20 mmol/L (5-15) Blood Urea Nitrogen 94 mg/dL (7-18) Creatinine 8.5 MG/DL (0.55-1.30) Estimat Glomerular Filtration Rate 6.3 mL/min (>60) Glucose Level 190 MG/DL (74-106) Calcium Level 6.4 MG/DL (8.5-10.1) Total Bilirubin 1.0 MG/DL (0.2-1.0) Aspartate Amino Transf (AST/SGOT) 549 U/L (15-37) Alanine Aminotransferase (ALT/SGPT) 251 U/L (12-78) Alkaline Phosphatase 118 U/L (46-116) Troponin I 0.316 ng/mL (0.000-0.056) Total Protein 5.8 G/DL (6.4-8.2) Albumin 2.1 G/DL (3.4-5.0) Globulin 3.7 g/dL Albumin/Globulin Ratio 0.6 (1.0-2.7) Test 02/06/19 11:55 02/06/19 12:56 02/06/19 19:05 02/07/19 04:00 Troponin I 0.330 ng/mL (0.000-0.056) Arterial Blood pH 7.224 (7.350-7.450) Arterial Blood Partial Pressure CO2 19.6 mmHg (35.0-45.0) Arterial Blood Partial Pressure O2 151.2 mmHg (75.0-100.0) Arterial Blood HCO3 7.9 mmol/L (22.0-26.0) Arterial Blood Oxygen Saturation 98.0 % (95-100) Arterial Blood Base Excess -18.0 (-2-2) Trevor Test Positive White Blood Count 22.5 K/UL (4.8-10.8) 16.8 K/UL (4.8-10.8) Red Blood Count 3.26 M/UL (4.70-6.10) 3.28 M/UL (4.70-6.10) Hemoglobin 9.4 G/DL (14.2-18.0) 9.5 G/DL (14.2-18.0) Hematocrit 28.6 % (42.0-52.0) 28.9 % (42.0-52.0) Mean Corpuscular Volume 88 FL (80-99) 88 FL (80-99) Mean Corpuscular Hemoglobin 28.8 PG (27.0-31.0) 29.0 PG (27.0-31.0) Mean Corpuscular Hemoglobin Concent 32.8 G/DL (32.0-36.0) 32.9 G/DL (32.0-36.0) Red Cell Distribution Width 13.5 % (11.6-14.8) 13.7 % (11.6-14.8) Platelet Count 145 K/UL (150-450) 140 K/UL (150-450) Mean Platelet Volume 7.0 FL (6.5-10.1) 8.2 FL (6.5-10.1) Neutrophils (%) (Auto) % (45.0-75.0) % (45.0-75.0) Lymphocytes (%) (Auto) % (20.0-45.0) % (20.0-45.0) Monocytes (%) (Auto) % (1.0-10.0) % (1.0-10.0) Eosinophils (%) (Auto) % (0.0-3.0) % (0.0-3.0) Basophils (%) (Auto) % (0.0-2.0) % (0.0-2.0) Differential Total Cells Counted 100 Neutrophils % (Manual) 94 % (45-75) Lymphocytes % (Manual) 3 % (20-45) Monocytes % (Manual) 3 % (1-10) Eosinophils % (Manual) 0 % (0-3) Basophils % (Manual) 0 % (0-2) Band Neutrophils 0 % (0-8) Nucleated Red Blood Cells 2 /100 WBC Platelet Estimate Decreased Platelet Morphology Normal Polychromasia 1+ Anisocytosis 1+ Prothrombin Time 11.7 SEC (9.30-11.50) Prothromb Time International Ratio 1.1 (0.9-1.1) Sodium Level 148 MMOL/L (136-145) 148 MMOL/L (136-145) Potassium Level 3.7 MMOL/L (3.5-5.1) 2.9 MMOL/L (3.5-5.1) Chloride Level 111 MMOL/L (98-107) 111 MMOL/L (98-107) Carbon Dioxide Level 10 MMOL/L (21-32) 15 MMOL/L (21-32) Anion Gap 27 mmol/L (5-15) 22 mmol/L (5-15) Blood Urea Nitrogen 102 mg/dL (7-18) 102 mg/dL (7-18) Creatinine 8.7 MG/DL (0.55-1.30) 9.0 MG/DL (0.55-1.30) Estimat Glomerular Filtration Rate 6.1 mL/min (>60) 5.9 mL/min (>60) Glucose Level 345 MG/DL (74-106) 344 MG/DL (74-106) Calcium Level 6.8 MG/DL (8.5-10.1) 6.6 MG/DL (8.5-10.1) Magnesium Level 2.1 MG/DL (1.8-2.4) Objective: WDWN poor LOC on vent clear breath sounds bilaterally without rhonchi or wheeze [id number] without MRG NABS nontender no HSM no CC nonfocal; sedated Micro: Microbiology Date/Time Source Procedure Growth Status 02/05/19 23:10 Blood Blood Culture - Preliminary NO GROWTH AFTER 24 HOURS Resulted 02/05/19 22:55 Blood Blood Culture - Preliminary NO GROWTH AFTER 24 HOURS Resulted 02/06/19 03:00 Rectum Received Accucheck: [id number] Theo Noriega MD Feb 07, 2019 08:48
--- NOTE | 2019-02-07 09:00 | NUR ---
NURSE NOTES: SEEN AND EXAMINED BY DR SOUSA MADE AWARE OF THE GASTRIC DISCHARGE FROM THE OGT. WILL REFER TO GI MD. NO SIGNS OF DISTRESS. STILL ON RESTRAINTS. SLIGHTLY SEDATED OF THE MOMENT. TURNED AND REPOSITIONED PATIENT. ORAL CARE DONE. WILL COPNITNUE TOMONITOR.
--- NOTE | 2019-02-07 10:02 | NUR ---
*-* INSURANCE *-* ALL CLINICALS AND REVIEWS HAVE BEEN FAXED TO: /[employer] [facility] [employer] @ [phone] - [employer] TRKING# [id number] NCM: NICHOLAS Martin P- [phone] F- [phone]....REVIEW/CLINICAL
--- NOTE | 2019-02-07 10:20 | NUR ---
NURSE NOTES: SEEN HD NURSE AT THE BEDSIDE TO START DIALYSIS. WILL CONTINUE TO MONITOR.
--- NOTE | 2019-02-07 10:22 | NUR ---
NURSE NOTES: DR PATHAK MADE AWARE OF THE ABD ELECTROLYTES. AWAITING FOR CALL BACK. WILL CONTINUE TO MONITOR.
--- NOTE | 2019-02-07 10:25 | NUR ---
NURSE NOTES: INFORMED DR SOUSA RE ABG RESULT. AWAITING FOR CALL BACK. ON-GOING DIALYSIS. STILL ON FENTANYL DRIP RUNNING 250MCG/HR. NO SIGNS OF DISTRESS OF THE MOMENT. WILL CONTINUE TO MONITOR.
--- NOTE | 2019-02-07 10:49 | NUR ---
NURSE NOTES: SEEN AND EXAMINED BY DR PATHAK AND Clover NICOLE. NNO FOR DR LARS CABAN RE. TOLERATING DIALYSIS. WILL CONTINUE TO MONITOR.
--- NOTE | 2019-02-07 10:54 | Nephrology Progress Note ---
Assessment/Plan Plan ESRD - STARTED HD via femoral Junior. Needs PermaCath + AVF. To get a PermaCath soon. Sepsis - per ID. Resp Failure - hope to wean soon. Subjective Subjective On HD now. Objective Objective Last 24 Hour Vital Signs Date Time Temp Pulse Resp B/P (MAP) Pulse Ox O2 Delivery O2 Flow Rate FiO2 02/07/19 10:50 81 26 100 Mechanical Ventilator 40 02/07/19 10:44 81 26 40 02/07/19 10:44 86 26 99 Mechanical Ventilator 40 02/07/19 10:00 26 Mechanical Ventilator 40 02/07/19 10:00 78 26 143/62 (89) 100 02/07/19 09:30 79 26 143/60 (87) 99 02/07/19 09:15 79 26 141/60 (87) 99 02/07/19 09:12 79 26 40 02/07/19 09:00 80 26 141/60 (87) 99 02/07/19 09:00 26 Mechanical Ventilator 40 02/07/19 08:45 85 24 141/61 (87) 96 02/07/19 08:30 80 26 141/61 (87) 99 02/07/19 08:28 26 Mechanical Ventilator 40 02/07/19 08:27 26 Mechanical Ventilator 40 02/07/19 08:00 26 Mechanical Ventilator 40 02/07/19 08:00 Mechanical Ventilator 02/07/19 08:00 40 02/07/19 08:00 81 26 141/58 (85) 99 02/07/19 08:00 86 02/07/19 07:30 81 23 140/57 (84) 99 02/07/19 07:10 78 26 100 Mechanical Ventilator 40 02/07/19 07:03 80 26 40 02/07/19 07:02 82 26 95 Mechanical Ventilator 40 02/07/19 07:00 26 Mechanical Ventilator 40 02/07/19 07:00 79 26 140/57 (84) 99 02/07/19 06:00 80 26 130/55 (80) 98 02/07/19 06:00 26 Mechanical Ventilator 40 02/07/19 05:30 79 26 140/56 (84) 100 02/07/19 05:00 79 26 140/57 (84) 100 02/07/19 05:00 26 Mechanical Ventilator 40 02/07/19 05:00 79 26 40 50 02/07/19 04:30 79 26 139/56 (83) 100 02/07/19 04:00 98.7 79 26 133/56 (81) 02/07/19 04:00 Mechanical Ventilator 02/07/19 04:00 26 Mechanical Ventilator 50 02/07/19 04:00 50 02/07/19 04:00 78 02/07/19 03:30 79 26 141/56 (84) 100 02/07/19 03:19 78 26 100 Mechanical Ventilator 40 02/07/19 03:07 77 26 100 Mechanical Ventilator 40 02/07/19 03:06 77 26 40 50 02/07/19 03:00 77 26 134/53 (80) 100 02/07/19 02:58 26 Mechanical Ventilator 50 02/07/19 02:30 78 26 133/52 (79) 100 02/07/19 02:00 26 Mechanical Ventilator 50 02/07/19 02:00 78 26 133/53 (79) 100 02/07/19 01:30 79 26 131/53 (79) 100 02/07/19 01:00 26 Mechanical Ventilator 50 02/07/19 01:00 81 26 136/53 (80) 100 02/07/19 00:37 82 26 40 50 02/07/19 00:30 82 26 144/58 (86) 100 02/07/19 00:00 76 02/07/19 00:00 24 Mechanical Ventilator 50 02/07/19 00:00 50 02/07/19 00:00 98.8 79 26 143/58 (86) 100 02/07/19 00:00 Mechanical Ventilator 02/06/19 23:36 92 26 100 Mechanical Ventilator 40 02/06/19 23:30 85 22 131/51 (77) 99 02/06/19 23:26 75 26 100 Mechanical Ventilator 40 02/06/19 23:25 75 26 40 50 02/06/19 23:00 76 26 128/53 (78) 100 02/06/19 23:00 22 Mechanical Ventilator 50 02/06/19 22:00 77 26 123/49 (73) 99 02/06/19 21:59 Mechanical Ventilator 40 02/06/19 21:30 77 26 127/48 (74) 99 02/06/19 21:00 77 26 123/53 (76) 99 02/06/19 21:00 26 Mechanical Ventilator 50 02/06/19 20:43 78 26 40 50 02/06/19 20:30 84 25 122/52 (75) 98 02/06/19 20:00 98.8 80 26 126/51 (76) 97 02/06/19 20:00 26 Mechanical Ventilator 50 02/06/19 20:00 78 02/06/19 20:00 50 02/06/19 20:00 Mechanical Ventilator 02/06/19 19:30 85 22 132/116 (121) 98 02/06/19 19:30 102 26 100 Mechanical Ventilator 40 02/06/19 19:15 75 26 117/56 (76) 100 02/06/19 19:13 77 28 98 Mechanical Ventilator 40 02/06/19 19:10 77 28 40 50 02/06/19 19:00 79 24 115/65 (82) 100 02/06/19 19:00 24 Mechanical Ventilator 50 02/06/19 18:45 78 19 120/52 (74) 24 02/06/19 18:30 77 19 114/69 (84) 100 02/06/19 18:15 86 22 114/69 (84) 99 02/06/19 18:00 86 21 126/52 (76) 99 02/06/19 18:00 21 Mechanical Ventilator 50 02/06/19 17:45 77 17 129/58 (81) 100 02/06/19 17:30 82 20 118/103 (108) 100 02/06/19 17:30 20 118/103 Mechanical Ventilator 50 02/06/19 17:15 75 20 124/57 (79) 100 02/06/19 17:00 78 18 115/60 (78) 100 02/06/19 17:00 18 Mechanical Ventilator 50 02/06/19 17:00 18 115/60 Mechanical Ventilator 50 02/06/19 16:52 73 30 50 02/06/19 16:45 80 22 118/51 (73) 99 02/06/19 16:30 73 19 120/51 (74) 100 02/06/19 16:15 73 19 118/52 (74) 99 02/06/19 16:00 97.4 76 14 126/72 (90) 100 02/06/19 16:00 18 Mechanical Ventilator 50 02/06/19 16:00 18 123/55 Mechanical Ventilator 100 02/06/19 16:00 72 02/06/19 16:00 Mechanical Ventilator 02/06/19 16:00 50 02/06/19 15:30 83 29 120/47 (71) 99 02/06/19 15:20 77 31 100 Mechanical Ventilator 50 02/06/19 15:15 78 21 130/55 (80) 99 02/06/19 15:10 81 31 98 Mechanical Ventilator 50 02/06/19 15:09 75 29 50 02/06/19 15:00 28 Mechanical Ventilator 50 02/06/19 15:00 28 121/58 Mechanical Ventilator 50 02/06/19 15:00 82 28 121/58 (79) 100 02/06/19 14:45 82 23 129/51 (77) 97 02/06/19 14:30 85 22 136/114 (121) 99 02/06/19 14:28 19 Mechanical Ventilator 50 02/06/19 14:00 73 17 124/54 (77) 100 02/06/19 14:00 16 124/54 Mechanical Ventilator 50 02/06/19 12:50 74 31 50 02/06/19 12:50 14 126/54 Mechanical Ventilator 50 02/06/19 12:30 75 17 126/54 (78) 100 02/06/19 12:00 98.0 74 18 123/51 (75) 100 02/06/19 12:00 73 02/06/19 12:00 Mechanical Ventilator 02/06/19 12:00 18 123/51 Mechanical Ventilator 50 02/06/19 12:00 50 02/06/19 11:30 74 17 123/54 (77) 100 02/06/19 11:00 76 15 121/53 (75) 100 02/06/19 11:00 15 121/53 Mechanical Ventilator 50 Intake and Output 02/06/19 02/07/19 19:00 07:00 Intake Total 1499.34 ml 1180 ml Output Total 515 ml 410 ml Balance 984.34 ml 770 ml Intake Oral 0 ml Free Water 200 ml 200 ml IV Total 799.34 ml 980 ml Blood Product 500 ml Output Urine Total 515 ml 410 ml Laboratory Tests 02/06/19 11:55: Troponin I 0.330H, Fentanyl Level [Pending], Norfentanyl Level [Pending] 02/06/19 12:56: Arterial Blood pH 7.224*L, Arterial Blood Partial Pressure CO2 19.6*L, Arterial Blood Partial Pressure O2 151.2H, Arterial Blood HCO3 7.9*L, Arterial Blood Oxygen Saturation 98.0, Arterial Blood Base Excess -18.0*L, Trevor Test Positive 02/06/19 19:05: White Blood Count 22.5*H, Red Blood Count 3.26L, Hemoglobin 9.4#L, Hematocrit 28.6L, Mean Corpuscular Volume 88, Mean Corpuscular Hemoglobin 28.8, Mean Corpuscular Hemoglobin Concent 32.8, Red Cell Distribution Width 13.5, Platelet Count 145L, Mean Platelet Volume 7.0, Neutrophils (%) (Auto) , Lymphocytes (%) ( Auto) , Monocytes (%) (Auto) , Eosinophils (%) (Auto) , Basophils (%) (Auto) , Differential Total Cells Counted 100, Neutrophils % (Manual) 94H, Lymphocytes % (Manual) 3L, Monocytes % (Manual) 3, Eosinophils % (Manual) 0, Basophils % ( Manual) 0, Band Neutrophils 0, Nucleated Red Blood Cells 2, Platelet Estimate DecreasedL, Platelet Morphology Normal, Polychromasia 1+, Anisocytosis 1+, Prothrombin Time 11.7H, Prothromb Time International Ratio 1.1, Sodium Level 148H, Potassium Level 3.7, Chloride Level 111H, Carbon Dioxide Level 10L, Anion Gap 27H, Blood Urea Nitrogen 102H, Creatinine 8.7H, Estimat Glomerular Filtration Rate 6.1, Glucose Level 345#H, Calcium Level 6.8L, Magnesium Level 2.1 02/07/19 04:00: White Blood Count 16.8H, Red Blood Count 3.28L, Hemoglobin 9.5L, Hematocrit 28.9L, Mean Corpuscular Volume 88, Mean Corpuscular Hemoglobin 29.0, Mean Corpuscular Hemoglobin Concent 32.9, Red Cell Distribution Width 13.7, Platelet Count 140L, Mean Platelet Volume 8.2, Neutrophils (%) (Auto) , Lymphocytes (%) ( Auto) , Monocytes (%) (Auto) , Eosinophils (%) (Auto) , Basophils (%) (Auto) , Differential Total Cells Counted 100, Neutrophils % (Manual) 92H, Lymphocytes % (Manual) 3L, Monocytes % (Manual) 5, Eosinophils % (Manual) 0, Basophils % ( Manual) 0, Band Neutrophils 0, Platelet Estimate DecreasedL, Platelet Morphology Normal, Anisocytosis 1+, Sodium Level 148H, Potassium Level 2.9L, Chloride Level 111H, Carbon Dioxide Level 15L, Anion Gap 22H, Blood Urea Nitrogen 102H, Creatinine 9.0H, Estimat Glomerular Filtration Rate 5.9, Glucose Level 344H, Calcium Level 6.6L, Hypochromasia 2+, Hepatitis A IgM Antibody [ Pending], Hepatitis B Surface Antigen [Pending], Hepatitis B Core IgM Antibody [ Pending], Hepatitis C Antibody [Pending] 02/07/19 09:25: Arterial Blood pH 7.338L, Arterial Blood Partial Pressure CO2 24.2*L, Arterial Blood Partial Pressure O2 95.5, Arterial Blood HCO3 12.7*L, Arterial Blood Oxygen Saturation 96.1, Arterial Blood Base Excess -11.6*L, Trevor Test Positive Height (Feet): 5 Height (Inches): 3.00 Weight (Pounds): 137 Objective On vent. Arousable. CV RR Lungs CTA Abd SNT. BS + E No CCE. B BKS stumps clean. Nery Quezada MD Feb 07, 2019 10:54
--- NOTE | 2019-02-07 10:55 | Infectious Diseases Prog Note ---
Assessment/Plan Assessment/Plan A; Pneumonia Acute respiratory failure DM with hyperglycemia CKD, acute renal failure Anemia Decreased albumin PAF Elevated troponin P; Continue Vancomycin & Zosyn Will f/u cultures Subjective ROS Limited/Unobtainable: Yes Constitutional: Denies: fever Genitourinary: Reports: other - on bedside HD Neurologic: Reports: confusion, other - on restraint Allergies: Coded Allergies: No Known Allergies (Unverified , 09/25/17) Objective Vital Signs Last 24 Hour Vital Signs Date Time Temp Pulse Resp B/P (MAP) Pulse Ox O2 Delivery O2 Flow Rate FiO2 02/07/19 10:44 81 26 40 02/07/19 10:44 86 26 99 Mechanical Ventilator 40 02/07/19 10:00 26 Mechanical Ventilator 40 02/07/19 10:00 78 26 143/62 (89) 100 02/07/19 09:30 79 26 143/60 (87) 99 02/07/19 09:15 79 26 141/60 (87) 99 02/07/19 09:12 79 26 40 02/07/19 09:00 80 26 141/60 (87) 99 02/07/19 09:00 26 Mechanical Ventilator 40 02/07/19 08:45 85 24 141/61 (87) 96 02/07/19 08:30 80 26 141/61 (87) 99 02/07/19 08:28 26 Mechanical Ventilator 40 02/07/19 08:27 26 Mechanical Ventilator 40 02/07/19 08:00 26 Mechanical Ventilator 40 02/07/19 08:00 Mechanical Ventilator 02/07/19 08:00 40 02/07/19 08:00 81 26 141/58 (85) 99 02/07/19 08:00 86 02/07/19 07:30 81 23 140/57 (84) 99 02/07/19 07:10 78 26 100 Mechanical Ventilator 40 02/07/19 07:03 80 26 40 02/07/19 07:02 82 26 95 Mechanical Ventilator 40 02/07/19 07:00 26 Mechanical Ventilator 40 02/07/19 07:00 79 26 140/57 (84) 99 02/07/19 06:00 80 26 130/55 (80) 98 02/07/19 06:00 26 Mechanical Ventilator 40 02/07/19 05:30 79 26 140/56 (84) 100 02/07/19 05:00 79 26 140/57 (84) 100 02/07/19 05:00 26 Mechanical Ventilator 40 02/07/19 05:00 79 26 40 50 02/07/19 04:30 79 26 139/56 (83) 100 02/07/19 04:00 98.7 79 26 133/56 (81) 02/07/19 04:00 Mechanical Ventilator 02/07/19 04:00 26 Mechanical Ventilator 50 02/07/19 04:00 50 02/07/19 04:00 78 02/07/19 03:30 79 26 141/56 (84) 100 02/07/19 03:19 78 26 100 Mechanical Ventilator 40 02/07/19 03:07 77 26 100 Mechanical Ventilator 40 02/07/19 03:06 77 26 40 50 02/07/19 03:00 77 26 134/53 (80) 100 02/07/19 02:58 26 Mechanical Ventilator 50 02/07/19 02:30 78 26 133/52 (79) 100 02/07/19 02:00 26 Mechanical Ventilator 50 02/07/19 02:00 78 26 133/53 (79) 100 02/07/19 01:30 79 26 131/53 (79) 100 02/07/19 01:00 26 Mechanical Ventilator 50 02/07/19 01:00 81 26 136/53 (80) 100 02/07/19 00:37 82 26 40 50 02/07/19 00:30 82 26 144/58 (86) 100 02/07/19 00:00 76 02/07/19 00:00 24 Mechanical Ventilator 50 02/07/19 00:00 50 02/07/19 00:00 98.8 79 26 143/58 (86) 100 02/07/19 00:00 Mechanical Ventilator 02/06/19 23:36 92 26 100 Mechanical Ventilator 40 02/06/19 23:30 85 22 131/51 (77) 99 02/06/19 23:26 75 26 100 Mechanical Ventilator 40 02/06/19 23:25 75 26 40 50 02/06/19 23:00 76 26 128/53 (78) 100 02/06/19 23:00 22 Mechanical Ventilator 50 02/06/19 22:00 77 26 123/49 (73) 99 02/06/19 21:59 Mechanical Ventilator 40 02/06/19 21:30 77 26 127/48 (74) 99 02/06/19 21:00 77 26 123/53 (76) 99 02/06/19 21:00 26 Mechanical Ventilator 50 02/06/19 20:43 78 26 40 50 02/06/19 20:30 84 25 122/52 (75) 98 02/06/19 20:00 98.8 80 26 126/51 (76) 97 02/06/19 20:00 26 Mechanical Ventilator 50 02/06/19 20:00 78 02/06/19 20:00 50 02/06/19 20:00 Mechanical Ventilator 02/06/19 19:30 85 22 132/116 (121) 98 02/06/19 19:30 102 26 100 Mechanical Ventilator 40 02/06/19 19:15 75 26 117/56 (76) 100 02/06/19 19:13 77 28 98 Mechanical Ventilator 40 02/06/19 19:10 77 28 40 50 02/06/19 19:00 79 24 115/65 (82) 100 02/06/19 19:00 24 Mechanical Ventilator 50 02/06/19 18:45 78 19 120/52 (74) 24 02/06/19 18:30 77 19 114/69 (84) 100 02/06/19 18:15 86 22 114/69 (84) 99 02/06/19 18:00 86 21 126/52 (76) 99 02/06/19 18:00 21 Mechanical Ventilator 50 02/06/19 17:45 77 17 129/58 (81) 100 02/06/19 17:30 82 20 118/103 (108) 100 02/06/19 17:30 20 118/103 Mechanical Ventilator 50 02/06/19 17:15 75 20 124/57 (79) 100 02/06/19 17:00 78 18 115/60 (78) 100 02/06/19 17:00 18 Mechanical Ventilator 50 02/06/19 17:00 18 115/60 Mechanical Ventilator 50 02/06/19 16:52 73 30 50 02/06/19 16:45 80 22 118/51 (73) 99 02/06/19 16:30 73 19 120/51 (74) 100 02/06/19 16:15 73 19 118/52 (74) 99 02/06/19 16:00 97.4 76 14 126/72 (90) 100 02/06/19 16:00 18 Mechanical Ventilator 50 02/06/19 16:00 18 123/55 Mechanical Ventilator 100 02/06/19 16:00 72 02/06/19 16:00 Mechanical Ventilator 02/06/19 16:00 50 02/06/19 15:30 83 29 120/47 (71) 99 02/06/19 15:20 77 31 100 Mechanical Ventilator 50 02/06/19 15:15 78 21 130/55 (80) 99 02/06/19 15:10 81 31 98 Mechanical Ventilator 50 02/06/19 15:09 75 29 50 02/06/19 15:00 28 Mechanical Ventilator 50 02/06/19 15:00 28 121/58 Mechanical Ventilator 50 02/06/19 15:00 82 28 121/58 (79) 100 02/06/19 14:45 82 23 129/51 (77) 97 02/06/19 14:30 85 22 136/114 (121) 99 02/06/19 14:28 19 Mechanical Ventilator 50 02/06/19 14:00 73 17 124/54 (77) 100 02/06/19 14:00 16 124/54 Mechanical Ventilator 50 02/06/19 12:50 74 31 50 02/06/19 12:50 14 126/54 Mechanical Ventilator 50 02/06/19 12:30 75 17 126/54 (78) 100 02/06/19 12:00 98.0 74 18 123/51 (75) 100 02/06/19 12:00 73 02/06/19 12:00 Mechanical Ventilator 02/06/19 12:00 18 123/51 Mechanical Ventilator 50 02/06/19 12:00 50 02/06/19 11:30 74 17 123/54 (77) 100 02/06/19 11:00 76 15 121/53 (75) 100 02/06/19 11:00 15 121/53 Mechanical Ventilator 50 Height (Feet): 5 Height (Inches): 3.00 Weight (Pounds): 137 HEENT: mucous membranes moist, other - orally intubated Respiratory/Chest: lungs clear, other - on ventilator Cardiovascular: normal rate, other - right femoral HD line Abdomen: soft, non tender Extremities: no edema, other - bilateral BKA Skin: other - bruises Neurologic/Psychiatric: disoriented Microbiology Date/Time Source Procedure Growth Status 02/05/19 23:10 Blood Blood Culture - Preliminary NO GROWTH AFTER 24 HOURS Resulted 02/05/19 22:55 Blood Blood Culture - Preliminary NO GROWTH AFTER 24 HOURS Resulted 02/06/19 03:00 Rectum Received Laboratory Tests Test 02/06/19 11:55 02/06/19 12:56 02/06/19 19:05 02/07/19 04:00 Troponin I 0.330 ng/mL (0.000-0.056) Fentanyl Level Pending Norfentanyl Level Pending Arterial Blood pH 7.224 (7.350-7.450) Arterial Blood Partial Pressure CO2 19.6 mmHg (35.0-45.0) *L Arterial Blood Partial Pressure O2 151.2 mmHg (75.0-100.0) H Arterial Blood HCO3 7.9 mmol/L (22.0-26.0) *L Arterial Blood Oxygen Saturation 98.0 % (95-100) Arterial Blood Base Excess -18.0 (-2-2) *L Trevor Test Positive White Blood Count 22.5 K/UL (4.8-10.8) *H 16.8 K/UL (4.8-10.8) H Red Blood Count 3.26 M/UL (4.70-6.10) L 3.28 M/UL (4.70-6.10) L Hemoglobin 9.4 G/DL (14.2-18.0) #L 9.5 G/DL (14.2-18.0) L Hematocrit 28.6 % (42.0-52.0) L 28.9 % (42.0-52.0) L Mean Corpuscular Volume 88 FL (80-99) 88 FL (80-99) Mean Corpuscular Hemoglobin 28.8 PG (27.0-31.0) 29.0 PG (27.0-31.0) Mean Corpuscular Hemoglobin Concent 32.8 G/DL (32.0-36.0) 32.9 G/DL (32.0-36.0) Red Cell Distribution Width 13.5 % (11.6-14.8) 13.7 % (11.6-14.8) Platelet Count 145 K/UL (150-450) L 140 K/UL (150-450) L Mean Platelet Volume 7.0 FL (6.5-10.1) 8.2 FL (6.5-10.1) Neutrophils (%) (Auto) % (45.0-75.0) % (45.0-75.0) Lymphocytes (%) (Auto) % (20.0-45.0) % (20.0-45.0) Monocytes (%) (Auto) % (1.0-10.0) % (1.0-10.0) Eosinophils (%) (Auto) % (0.0-3.0) % (0.0-3.0) Basophils (%) (Auto) % (0.0-2.0) % (0.0-2.0) Differential Total Cells Counted 100 100 Neutrophils % (Manual) 94 % (45-75) H 92 % (45-75) H Lymphocytes % (Manual) 3 % (20-45) L 3 % (20-45) L Monocytes % (Manual) 3 % (1-10) 5 % (1-10) Eosinophils % (Manual) 0 % (0-3) 0 % (0-3) Basophils % (Manual) 0 % (0-2) 0 % (0-2) Band Neutrophils 0 % (0-8) 0 % (0-8) Nucleated Red Blood Cells 2 /100 WBC Platelet Estimate Decreased L Decreased L Platelet Morphology Normal Normal Polychromasia 1+ Anisocytosis 1+ 1+ Prothrombin Time 11.7 SEC (9.30-11.50) H Prothromb Time International Ratio 1.1 (0.9-1.1) Sodium Level 148 MMOL/L (136-145) H 148 MMOL/L (136-145) H Potassium Level 3.7 MMOL/L (3.5-5.1) 2.9 MMOL/L (3.5-5.1) L Chloride Level 111 MMOL/L (98-107) H 111 MMOL/L (98-107) H Carbon Dioxide Level 10 MMOL/L (21-32) L 15 MMOL/L (21-32) L Anion Gap 27 mmol/L (5-15) H 22 mmol/L (5-15) H Blood Urea Nitrogen 102 mg/dL (7-18) H 102 mg/dL (7-18) H Creatinine 8.7 MG/DL (0.55-1.30) H 9.0 MG/DL (0.55-1.30) H Estimat Glomerular Filtration Rate 6.1 mL/min (>60) 5.9 mL/min (>60) Glucose Level 345 MG/DL (74-106) #H 344 MG/DL (74-106) H Calcium Level 6.8 MG/DL (8.5-10.1) L 6.6 MG/DL (8.5-10.1) L Magnesium Level 2.1 MG/DL (1.8-2.4) Hypochromasia 2+ Hepatitis A IgM Antibody Pending Hepatitis B Surface Antigen Pending Hepatitis B Core IgM Antibody Pending Hepatitis C Antibody Pending Test 02/07/19 09:25 Arterial Blood pH 7.338 (7.350-7.450) Arterial Blood Partial Pressure CO2 24.2 mmHg (35.0-45.0) *L Arterial Blood Partial Pressure O2 95.5 mmHg (75.0-100.0) Arterial Blood HCO3 12.7 mmol/L (22.0-26.0) *L Arterial Blood Oxygen Saturation 96.1 % (95-100) Arterial Blood Base Excess -11.6 (-2-2) *L Trevor Test Positive Current Medications Medications (Trade) Dose Ordered Sig/Joe Route PRN Reason Start Time Stop Time Status Last Admin Dose Admin Acetaminophen (Tylenol) 650 mg Q4H PRN ORAL Mild Pain/Temp > 100.5 02/06/19 05:45 03/08/19 05:44 Al Hydroxide/Mg Hydroxide (Mylanta) 30 ml PRN ORAL 02/06/19 05:45 03/08/19 05:44 Albuterol/ Ipratropium (Albuterol/ Ipratropium) 3 ml Q4HRT HHN 02/06/19 15:00 02/11/19 14:59 02/07/19 10:44 Chlorhexidine Gluconate (Falguni-Hex 2%) 1 applic DAILY@1999 TOPIC 02/06/19 20:00 03/08/19 19:59 02/06/19 21:01 Dextrose (Dextrose 50%) 25 ml Q30M PRN IV Hypoglycemia 02/06/19 11:30 03/08/19 11:29 Dextrose (Dextrose 50%) 50 ml Q30M PRN IV Hypoglycemia 02/06/19 11:30 03/08/19 11:29 Epoetin Mayo (Epoetin Mayo(ESRD on dialysis)) 10,000 unit MON-MON-MON SUBQ 02/06/19 21:00 03/08/19 20:59 02/06/19 21:02 Fentanyl Citrate 1000 mcg/Sodium Chloride 100 ml @ 0 mls/hr Q24H IV 02/06/19 10:30 02/13/19 10:29 02/07/19 08:28 Heparin Sodium (Porcine) (Heparin 5000 units/ml) 5,000 units EVERY 12 HOURS SUBQ 02/06/19 09:00 03/08/19 08:59 02/07/19 08:32 Heparin Sodium (Porcine) (Heparin Sod 1000 units/ml 10ml) 2,000 unit ONCE PRN IV FOR HD USE 02/07/19 11:45 02/07/19 23:59 Heparin Sodium (Porcine) (Heparin) 1,000 unit POSTHD INJ 02/07/19 11:45 02/07/19 23:59 Heparin Sodium/ Sodium Chloride (Heparin 1000 units/500ml Premix) 1,000 unit ONCE PRN IV PICC LINE 02/06/19 20:00 02/07/19 23:59 Hydrocortisone (Solu-CORTEF) 60 mg EVERY 12 HOURS IV 02/06/19 11:30 03/08/19 11:29 02/07/19 08:30 Insulin Aspart (NovoLOG) Q6HR SUBQ 02/06/19 12:00 03/08/19 11:59 02/07/19 05:55 Iron Sucrose 100 mg/Sodium Chloride 60 ml @ 240 mls/hr BEDTIME IV 02/06/19 21:00 02/10/19 21:14 02/06/19 21:15 Lansoprazole (Prevacid) 30 mg DAILY NG 02/06/19 09:00 03/08/19 08:59 02/07/19 08:30 Lidocaine HCl (Xylocaine 1% 30ml) 30 ml ONCE PRN INJ PICC LINE 02/06/19 20:00 02/07/19 23:59 Meropenem 500 mg/ Sodium Chloride 55 ml @ 110 mls/hr DAILY IVPB 02/06/19 13:00 02/11/19 12:59 02/07/19 08:30 Propofol 100 ml @ 0 mls/hr Q24H IV 02/06/19 05:45 02/08/19 05:44 02/06/19 12:50 Sodium Bicarbonate 100 ml/Dextrose 1,100 ml @ 60 mls/hr [id number] IV 02/06/19 14:30 03/08/19 14:29 02/07/19 08:40 Sodium Chloride 1,000 ml @ 500 mls/hr Q2H PRN IVLG sbp<90 during hd 02/07/19 11:38 02/07/19 23:59 Emir Madsen MD Feb 07, 2019 10:55
--- NOTE | 2019-02-07 11:10 | Surgery Progress Note ---
Surgery Progress Note Subjective Procedure Performed right femoral temporary hemodialysis catheter insertion Additional Comments leukocytosis trending down h/h stable electrolytes abnormal exam unchanged line in place dressings intact Objective Last 24 Hour Vital Signs Date Time Temp Pulse Resp B/P (MAP) Pulse Ox O2 Delivery O2 Flow Rate FiO2 02/07/19 10:50 81 26 100 Mechanical Ventilator 40 02/07/19 10:44 81 26 40 02/07/19 10:44 86 26 99 Mechanical Ventilator 40 02/07/19 10:00 26 Mechanical Ventilator 40 02/07/19 10:00 78 26 143/62 (89) 100 02/07/19 09:30 79 26 143/60 (87) 99 02/07/19 09:15 79 26 141/60 (87) 99 02/07/19 09:12 79 26 40 02/07/19 09:00 80 26 141/60 (87) 99 02/07/19 09:00 26 Mechanical Ventilator 40 02/07/19 08:45 85 24 141/61 (87) 96 02/07/19 08:30 80 26 141/61 (87) 99 02/07/19 08:28 26 Mechanical Ventilator 40 02/07/19 08:27 26 Mechanical Ventilator 40 02/07/19 08:00 26 Mechanical Ventilator 40 02/07/19 08:00 Mechanical Ventilator 02/07/19 08:00 40 02/07/19 08:00 81 26 141/58 (85) 99 02/07/19 08:00 86 02/07/19 07:30 81 23 140/57 (84) 99 02/07/19 07:10 78 26 100 Mechanical Ventilator 40 02/07/19 07:03 80 26 40 02/07/19 07:02 82 26 95 Mechanical Ventilator 40 02/07/19 07:00 26 Mechanical Ventilator 40 02/07/19 07:00 79 26 140/57 (84) 99 02/07/19 06:00 80 26 130/55 (80) 98 02/07/19 06:00 26 Mechanical Ventilator 40 02/07/19 05:30 79 26 140/56 (84) 100 02/07/19 05:00 79 26 140/57 (84) 100 02/07/19 05:00 26 Mechanical Ventilator 40 02/07/19 05:00 79 26 40 50 02/07/19 04:30 79 26 139/56 (83) 100 02/07/19 04:00 98.7 79 26 133/56 (81) 02/07/19 04:00 Mechanical Ventilator 02/07/19 04:00 26 Mechanical Ventilator 50 02/07/19 04:00 50 02/07/19 04:00 78 02/07/19 03:30 79 26 141/56 (84) 100 02/07/19 03:19 78 26 100 Mechanical Ventilator 40 02/07/19 03:07 77 26 100 Mechanical Ventilator 40 02/07/19 03:06 77 26 40 50 02/07/19 03:00 77 26 134/53 (80) 100 02/07/19 02:58 26 Mechanical Ventilator 50 02/07/19 02:30 78 26 133/52 (79) 100 02/07/19 02:00 26 Mechanical Ventilator 50 02/07/19 02:00 78 26 133/53 (79) 100 02/07/19 01:30 79 26 131/53 (79) 100 02/07/19 01:00 26 Mechanical Ventilator 50 02/07/19 01:00 81 26 136/53 (80) 100 02/07/19 00:37 82 26 40 50 02/07/19 00:30 82 26 144/58 (86) 100 02/07/19 00:00 76 02/07/19 00:00 24 Mechanical Ventilator 50 02/07/19 00:00 50 02/07/19 00:00 98.8 79 26 143/58 (86) 100 02/07/19 00:00 Mechanical Ventilator 02/06/19 23:36 92 26 100 Mechanical Ventilator 40 02/06/19 23:30 85 22 131/51 (77) 99 02/06/19 23:26 75 26 100 Mechanical Ventilator 40 02/06/19 23:25 75 26 40 50 02/06/19 23:00 76 26 128/53 (78) 100 02/06/19 23:00 22 Mechanical Ventilator 50 02/06/19 22:00 77 26 123/49 (73) 99 02/06/19 21:59 Mechanical Ventilator 40 02/06/19 21:30 77 26 127/48 (74) 99 02/06/19 21:00 77 26 123/53 (76) 99 02/06/19 21:00 26 Mechanical Ventilator 50 02/06/19 20:43 78 26 40 50 02/06/19 20:30 84 25 122/52 (75) 98 02/06/19 20:00 98.8 80 26 126/51 (76) 97 02/06/19 20:00 26 Mechanical Ventilator 50 02/06/19 20:00 78 02/06/19 20:00 50 02/06/19 20:00 Mechanical Ventilator 02/06/19 19:30 85 22 132/116 (121) 98 02/06/19 19:30 102 26 100 Mechanical Ventilator 40 02/06/19 19:15 75 26 117/56 (76) 100 02/06/19 19:13 77 28 98 Mechanical Ventilator 40 02/06/19 19:10 77 28 40 50 02/06/19 19:00 79 24 115/65 (82) 100 02/06/19 19:00 24 Mechanical Ventilator 50 02/06/19 18:45 78 19 120/52 (74) 24 02/06/19 18:30 77 19 114/69 (84) 100 02/06/19 18:15 86 22 114/69 (84) 99 02/06/19 18:00 86 21 126/52 (76) 99 02/06/19 18:00 21 Mechanical Ventilator 50 02/06/19 17:45 77 17 129/58 (81) 100 02/06/19 17:30 82 20 118/103 (108) 100 02/06/19 17:30 20 118/103 Mechanical Ventilator 50 02/06/19 17:15 75 20 124/57 (79) 100 02/06/19 17:00 78 18 115/60 (78) 100 02/06/19 17:00 18 Mechanical Ventilator 50 02/06/19 17:00 18 115/60 Mechanical Ventilator 50 02/06/19 16:52 73 30 50 02/06/19 16:45 80 22 118/51 (73) 99 02/06/19 16:30 73 19 120/51 (74) 100 02/06/19 16:15 73 19 118/52 (74) 99 02/06/19 16:00 97.4 76 14 126/72 (90) 100 02/06/19 16:00 18 Mechanical Ventilator 50 02/06/19 16:00 18 123/55 Mechanical Ventilator 100 02/06/19 16:00 72 02/06/19 16:00 Mechanical Ventilator 02/06/19 16:00 50 02/06/19 15:30 83 29 120/47 (71) 99 02/06/19 15:20 77 31 100 Mechanical Ventilator 50 02/06/19 15:15 78 21 130/55 (80) 99 02/06/19 15:10 81 31 98 Mechanical Ventilator 50 02/06/19 15:09 75 29 50 02/06/19 15:00 28 Mechanical Ventilator 50 02/06/19 15:00 28 121/58 Mechanical Ventilator 50 02/06/19 15:00 82 28 121/58 (79) 100 02/06/19 14:45 82 23 129/51 (77) 97 02/06/19 14:30 85 22 136/114 (121) 99 02/06/19 14:28 19 Mechanical Ventilator 50 02/06/19 14:00 73 17 124/54 (77) 100 02/06/19 14:00 16 124/54 Mechanical Ventilator 50 02/06/19 12:50 74 31 50 02/06/19 12:50 14 126/54 Mechanical Ventilator 50 02/06/19 12:30 75 17 126/54 (78) 100 02/06/19 12:00 98.0 74 18 123/51 (75) 100 02/06/19 12:00 73 02/06/19 12:00 Mechanical Ventilator 02/06/19 12:00 18 123/51 Mechanical Ventilator 50 02/06/19 12:00 50 02/06/19 11:30 74 17 123/54 (77) 100 I&O Intake and Output 02/06/19 02/07/19 19:00 07:00 Intake Total 1499.34 ml 1180 ml Output Total 515 ml 410 ml Balance 984.34 ml 770 ml Intake Oral 0 ml Free Water 200 ml 200 ml IV Total 799.34 ml 980 ml Blood Product 500 ml Output Urine Total 515 ml 410 ml Dressing: dry Wound: clean Drains: other Cardiovascular: RSR Respiratory: decreased breath sounds Abdomen: soft, present bowel sounds, non-distended Extremities: no cyanosis, other Laboratory Tests Test 02/06/19 11:55 02/06/19 12:56 02/06/19 19:05 02/07/19 04:00 Troponin I 0.330 ng/mL (0.000-0.056) Fentanyl Level Pending Norfentanyl Level Pending Arterial Blood pH 7.224 (7.350-7.450) Arterial Blood Partial Pressure CO2 19.6 mmHg (35.0-45.0) *L Arterial Blood Partial Pressure O2 151.2 mmHg (75.0-100.0) H Arterial Blood HCO3 7.9 mmol/L (22.0-26.0) *L Arterial Blood Oxygen Saturation 98.0 % (95-100) Arterial Blood Base Excess -18.0 (-2-2) *L Trevor Test Positive White Blood Count 22.5 K/UL (4.8-10.8) *H 16.8 K/UL (4.8-10.8) H Red Blood Count 3.26 M/UL (4.70-6.10) L 3.28 M/UL (4.70-6.10) L Hemoglobin 9.4 G/DL (14.2-18.0) #L 9.5 G/DL (14.2-18.0) L Hematocrit 28.6 % (42.0-52.0) L 28.9 % (42.0-52.0) L Mean Corpuscular Volume 88 FL (80-99) 88 FL (80-99) Mean Corpuscular Hemoglobin 28.8 PG (27.0-31.0) 29.0 PG (27.0-31.0) Mean Corpuscular Hemoglobin Concent 32.8 G/DL (32.0-36.0) 32.9 G/DL (32.0-36.0) Red Cell Distribution Width 13.5 % (11.6-14.8) 13.7 % (11.6-14.8) Platelet Count 145 K/UL (150-450) L 140 K/UL (150-450) L Mean Platelet Volume 7.0 FL (6.5-10.1) 8.2 FL (6.5-10.1) Neutrophils (%) (Auto) % (45.0-75.0) % (45.0-75.0) Lymphocytes (%) (Auto) % (20.0-45.0) % (20.0-45.0) Monocytes (%) (Auto) % (1.0-10.0) % (1.0-10.0) Eosinophils (%) (Auto) % (0.0-3.0) % (0.0-3.0) Basophils (%) (Auto) % (0.0-2.0) % (0.0-2.0) Differential Total Cells Counted 100 100 Neutrophils % (Manual) 94 % (45-75) H 92 % (45-75) H Lymphocytes % (Manual) 3 % (20-45) L 3 % (20-45) L Monocytes % (Manual) 3 % (1-10) 5 % (1-10) Eosinophils % (Manual) 0 % (0-3) 0 % (0-3) Basophils % (Manual) 0 % (0-2) 0 % (0-2) Band Neutrophils 0 % (0-8) 0 % (0-8) Nucleated Red Blood Cells 2 /100 WBC Platelet Estimate Decreased L Decreased L Platelet Morphology Normal Normal Polychromasia 1+ Anisocytosis 1+ 1+ Prothrombin Time 11.7 SEC (9.30-11.50) H Prothromb Time International Ratio 1.1 (0.9-1.1) Sodium Level 148 MMOL/L (136-145) H 148 MMOL/L (136-145) H Potassium Level 3.7 MMOL/L (3.5-5.1) 2.9 MMOL/L (3.5-5.1) L Chloride Level 111 MMOL/L (98-107) H 111 MMOL/L (98-107) H Carbon Dioxide Level 10 MMOL/L (21-32) L 15 MMOL/L (21-32) L Anion Gap 27 mmol/L (5-15) H 22 mmol/L (5-15) H Blood Urea Nitrogen 102 mg/dL (7-18) H 102 mg/dL (7-18) H Creatinine 8.7 MG/DL (0.55-1.30) H 9.0 MG/DL (0.55-1.30) H Estimat Glomerular Filtration Rate 6.1 mL/min (>60) 5.9 mL/min (>60) Glucose Level 345 MG/DL (74-106) #H 344 MG/DL (74-106) H Calcium Level 6.8 MG/DL (8.5-10.1) L 6.6 MG/DL (8.5-10.1) L Magnesium Level 2.1 MG/DL (1.8-2.4) Hypochromasia 2+ Hepatitis A IgM Antibody Pending Hepatitis B Surface Antigen Pending Hepatitis B Core IgM Antibody Pending Hepatitis C Antibody Pending Test 02/07/19 09:25 Arterial Blood pH 7.338 (7.350-7.450) Arterial Blood Partial Pressure CO2 24.2 mmHg (35.0-45.0) *L Arterial Blood Partial Pressure O2 95.5 mmHg (75.0-100.0) Arterial Blood HCO3 12.7 mmol/L (22.0-26.0) *L Arterial Blood Oxygen Saturation 96.1 % (95-100) Arterial Blood Base Excess -11.6 (-2-2) *L Trevor Test Positive Plan Problems: (1) ARDS (adult respiratory distress syndrome) (2) Anemia (3) Elevated troponin (4) MARY (acute kidney injury) (5) COPD with exacerbation (6) Abnormal LFTs Assessment & Plan: Abnormalities likely from shock liver. Ultrasound ordered Trend labs (7) COPD (chronic obstructive pulmonary disease) (8) Respiratory distress (9) Pneumonia (10) HTN (hypertension) (11) Epileptic seizure, generalized (12) Shock liver Assessment & Plan: Shock liver likely from hypotension and cardiovascular arrest. Resuscitation with IV fluids ICU care and management Trend labs We will follow with recommendations (13) Suprapubic catheter Hari Batres Feb 07, 2019 11:10
[2019-02-07] MEDS ORDERED: Heparin Sod 1000 units/ml 10ml IV PRN (11:45)
[2019-02-07] MEDS ORDERED: Heparin 1000 units/ml 1ml Vial INJ SCH (11:45)
--- NOTE | 2019-02-07 12:20 | Consultation ---
History of Present Illness General Chief Complaint: Dyspnea/Respdistress Present Illness Allergies: Coded Allergies: No Known Allergies (Unverified , 09/25/17) Medication History Scheduled Amlodipine Besylate (Norvasc), 10 MG ORAL DAILY, (Reported) Ascorbic Acid* (Vitamin C*), 500 MG ORAL DAILY, (Reported) Atorvastatin Calcium* (Lipitor*), 10 MG ORAL BEDTIME, (Reported) Atropine Sulfate (Atropine Sulfate), 2 DROP OP DAILY BOTH EYES, (Reported) Calcium Carbonate/Vitamin D3 (Oyster Shell 250 Mg + Vit D Tb), 1 EACH PO BID, ( Reported) Docusate Sodium* (Docusate Sodium*), 100 MG ORAL DAILY, (Reported) Dorzolamide HCl/Timolol Maleat (Dorzolamide-Timolol Eye Drops), 1 DROP BOTH EYES BID, (Reported) Ergocalciferol (Vitamin D2)* (Vitamin D*), 50,000 UNIT ORAL ONCE A WEEK, ( Reported) Esomeprazole Magnesium (Nexium), 40 MG ORAL DAILY, (Reported) Folic Acid/Vitamin B Comp W-C (Kailey-Yonny Tablet), 1 TAB PO DAILY, (Reported) Insulin Glargine (Lantus), 36 UNIT SUBQ BEDTIME, (Reported) Isosorbide Mononitrate (Isosorbide Mononitrate Er), 60 MG PO DAILY, (Reported) [place]-3/Dha/Epa/Fish Oil (Fish Oil 500 Mg Softgel), 1 EACH PO DAILY, (Reported) Sennosides (Senna), 2 TAB PO QHS, (Reported) Sitagliptin* (Januvia*), 100 MG ORAL DAILY, (Reported) Scheduled PRN Acetaminophen* (Acetaminophen 325MG Tablet*), 650 MG ORAL Q4H PRN for Mild Pain/ Temp > 100.5, (Reported) Bisacodyl* (Dulcolax*), 10 MG RECTAL DAILY PRN for Constipation, (Reported) Hydrocodone Bit/Acetaminophen 5-325* ([place] 5-325*), 1 TAB ORAL Q6H PRN for Moderate Pain (Pain Scale 4-6), (Reported) Hydroxyzine HCl (Hydroxyzine HCl), 25 MG ORAL Q6HR PRN for Itching, (Reported) Magnesium Hydroxide* (Milk Of Magnesia*), 30 ML ORAL QHS PRN for Constipation, ( Reported) Ondansetron* (Zofran*), 4 MG ORAL Q6H PRN for Nausea & Vomiting, (Reported) Discontinued Medications Cephalexin* (Keflex*), 250 MG ORAL DAILY, (Reported) Discontinued Reason: Therapy completed Doxycycline Monohydrate* (Doxycycline Monohydrate*), 100 MG ORAL TWICE A DAY, ( Reported) Discontinued Reason: Therapy completed Patient History Healthcare decision maker Resuscitation status Full Code Advanced Directive on File No Physical Exam Last 24 Hour Vital Signs Date Time Temp Pulse Resp B/P (MAP) Pulse Ox O2 Delivery O2 Flow Rate FiO2 02/07/19 11:15 87 26 148/62 (90) 99 02/07/19 11:00 87 26 148/62 (90) 99 02/07/19 11:00 26 Mechanical Ventilator 40 02/07/19 10:50 81 26 100 Mechanical Ventilator 40 02/07/19 10:45 83 22 148/62 (90) 100 02/07/19 10:44 81 26 40 02/07/19 10:44 86 26 99 Mechanical Ventilator 40 02/07/19 10:30 79 26 153/61 (91) 100 02/07/19 10:00 26 Mechanical Ventilator 40 02/07/19 10:00 78 26 143/62 (89) 100 02/07/19 09:45 78 26 143/62 (89) 100 02/07/19 09:30 79 26 143/60 (87) 99 02/07/19 09:15 79 26 141/60 (87) 99 02/07/19 09:12 79 26 40 02/07/19 09:00 80 26 141/60 (87) 99 02/07/19 09:00 26 Mechanical Ventilator 40 02/07/19 08:45 85 24 141/61 (87) 96 02/07/19 08:30 80 26 141/61 (87) 99 02/07/19 08:28 26 Mechanical Ventilator 40 02/07/19 08:27 26 Mechanical Ventilator 40 02/07/19 08:00 26 Mechanical Ventilator 40 02/07/19 08:00 Mechanical Ventilator 02/07/19 08:00 40 02/07/19 08:00 81 26 141/58 (85) 99 02/07/19 08:00 86 02/07/19 07:30 81 23 140/57 (84) 99 02/07/19 07:10 78 26 100 Mechanical Ventilator 40 02/07/19 07:03 80 26 40 02/07/19 07:02 82 26 95 Mechanical Ventilator 40 02/07/19 07:00 26 Mechanical Ventilator 40 02/07/19 07:00 79 26 140/57 (84) 99 02/07/19 06:00 80 26 130/55 (80) 98 02/07/19 06:00 26 Mechanical Ventilator 40 02/07/19 05:30 79 26 140/56 (84) 100 02/07/19 05:00 79 26 140/57 (84) 100 02/07/19 05:00 26 Mechanical Ventilator 40 02/07/19 05:00 79 26 40 50 02/07/19 04:30 79 26 139/56 (83) 100 02/07/19 04:00 98.7 79 26 133/56 (81) 02/07/19 04:00 Mechanical Ventilator 02/07/19 04:00 26 Mechanical Ventilator 50 02/07/19 04:00 50 02/07/19 04:00 78 02/07/19 03:30 79 26 141/56 (84) 100 02/07/19 03:19 78 26 100 Mechanical Ventilator 40 02/07/19 03:07 77 26 100 Mechanical Ventilator 40 02/07/19 03:06 77 26 40 50 02/07/19 03:00 77 26 134/53 (80) 100 02/07/19 02:58 26 Mechanical Ventilator 50 02/07/19 02:30 78 26 133/52 (79) 100 02/07/19 02:00 26 Mechanical Ventilator 50 02/07/19 02:00 78 26 133/53 (79) 100 02/07/19 01:30 79 26 131/53 (79) 100 02/07/19 01:00 26 Mechanical Ventilator 50 02/07/19 01:00 81 26 136/53 (80) 100 02/07/19 00:37 82 26 40 50 02/07/19 00:30 82 26 144/58 (86) 100 02/07/19 00:00 76 02/07/19 00:00 24 Mechanical Ventilator 50 02/07/19 00:00 50 02/07/19 00:00 98.8 79 26 143/58 (86) 100 02/07/19 00:00 Mechanical Ventilator 02/06/19 23:36 92 26 100 Mechanical Ventilator 40 02/06/19 23:30 85 22 131/51 (77) 99 02/06/19 23:26 75 26 100 Mechanical Ventilator 40 02/06/19 23:25 75 26 40 50 02/06/19 23:00 76 26 128/53 (78) 100 02/06/19 23:00 22 Mechanical Ventilator 50 02/06/19 22:00 77 26 123/49 (73) 99 02/06/19 21:59 Mechanical Ventilator 40 02/06/19 21:30 77 26 127/48 (74) 99 02/06/19 21:00 77 26 123/53 (76) 99 02/06/19 21:00 26 Mechanical Ventilator 50 02/06/19 20:43 78 26 40 50 02/06/19 20:30 84 25 122/52 (75) 98 02/06/19 20:00 98.8 80 26 126/51 (76) 97 02/06/19 20:00 26 Mechanical Ventilator 50 02/06/19 20:00 78 02/06/19 20:00 50 02/06/19 20:00 Mechanical Ventilator 02/06/19 19:30 85 22 132/116 (121) 98 02/06/19 19:30 102 26 100 Mechanical Ventilator 40 02/06/19 19:15 75 26 117/56 (76) 100 02/06/19 19:13 77 28 98 Mechanical Ventilator 40 02/06/19 19:10 77 28 40 50 02/06/19 19:00 79 24 115/65 (82) 100 02/06/19 19:00 24 Mechanical Ventilator 50 02/06/19 18:45 78 19 120/52 (74) 24 02/06/19 18:30 77 19 114/69 (84) 100 02/06/19 18:15 86 22 114/69 (84) 99 02/06/19 18:00 86 21 126/52 (76) 99 02/06/19 18:00 21 Mechanical Ventilator 50 02/06/19 17:45 77 17 129/58 (81) 100 02/06/19 17:30 82 20 118/103 (108) 100 02/06/19 17:30 20 118/103 Mechanical Ventilator 50 02/06/19 17:15 75 20 124/57 (79) 100 02/06/19 17:00 78 18 115/60 (78) 100 02/06/19 17:00 18 Mechanical Ventilator 50 02/06/19 17:00 18 115/60 Mechanical Ventilator 50 02/06/19 16:52 73 30 50 02/06/19 16:45 80 22 118/51 (73) 99 02/06/19 16:30 73 19 120/51 (74) 100 02/06/19 16:15 73 19 118/52 (74) 99 02/06/19 16:00 97.4 76 14 126/72 (90) 100 02/06/19 16:00 18 Mechanical Ventilator 50 02/06/19 16:00 18 123/55 Mechanical Ventilator 100 02/06/19 16:00 72 02/06/19 16:00 Mechanical Ventilator 02/06/19 16:00 50 02/06/19 15:30 83 29 120/47 (71) 99 02/06/19 15:20 77 31 100 Mechanical Ventilator 50 02/06/19 15:15 78 21 130/55 (80) 99 02/06/19 15:10 81 31 98 Mechanical Ventilator 50 02/06/19 15:09 75 29 50 02/06/19 15:00 28 Mechanical Ventilator 50 02/06/19 15:00 28 121/58 Mechanical Ventilator 50 02/06/19 15:00 82 28 121/58 (79) 100 02/06/19 14:45 82 23 129/51 (77) 97 02/06/19 14:30 85 22 136/114 (121) 99 02/06/19 14:28 19 Mechanical Ventilator 50 02/06/19 14:00 73 17 124/54 (77) 100 02/06/19 14:00 16 124/54 Mechanical Ventilator 50 02/06/19 12:50 74 31 50 02/06/19 12:50 14 126/54 Mechanical Ventilator 50 02/06/19 12:30 75 17 126/54 (78) 100 Intake and Output 02/06/19 02/07/19 19:00 07:00 Intake Total 1499.34 ml 1180 ml Output Total 515 ml 410 ml Balance 984.34 ml 770 ml Intake Oral 0 ml Free Water 200 ml 200 ml IV Total 799.34 ml 980 ml Blood Product 500 ml Output Urine Total 515 ml 410 ml Laboratory Tests Test 02/06/19 12:56 02/06/19 19:05 02/07/19 04:00 02/07/19 09:25 Arterial Blood pH 7.224 (7.350-7.450) 7.338 (7.350-7.450) Arterial Blood Partial Pressure CO2 19.6 mmHg (35.0-45.0) *L 24.2 mmHg (35.0-45.0) *L Arterial Blood Partial Pressure O2 151.2 mmHg (75.0-100.0) H 95.5 mmHg (75.0-100.0) Arterial Blood HCO3 7.9 mmol/L (22.0-26.0) *L 12.7 mmol/L (22.0-26.0) *L Arterial Blood Oxygen Saturation 98.0 % (95-100) 96.1 % (95-100) Arterial Blood Base Excess -18.0 (-2-2) *L -11.6 (-2-2) *L Trevor Test Positive Positive White Blood Count 22.5 K/UL (4.8-10.8) *H 16.8 K/UL (4.8-10.8) H Red Blood Count 3.26 M/UL (4.70-6.10) L 3.28 M/UL (4.70-6.10) L Hemoglobin 9.4 G/DL (14.2-18.0) #L 9.5 G/DL (14.2-18.0) L Hematocrit 28.6 % (42.0-52.0) L 28.9 % (42.0-52.0) L Mean Corpuscular Volume 88 FL (80-99) 88 FL (80-99) Mean Corpuscular Hemoglobin 28.8 PG (27.0-31.0) 29.0 PG (27.0-31.0) Mean Corpuscular Hemoglobin Concent 32.8 G/DL (32.0-36.0) 32.9 G/DL (32.0-36.0) Red Cell Distribution Width 13.5 % (11.6-14.8) 13.7 % (11.6-14.8) Platelet Count 145 K/UL (150-450) L 140 K/UL (150-450) L Mean Platelet Volume 7.0 FL (6.5-10.1) 8.2 FL (6.5-10.1) Neutrophils (%) (Auto) % (45.0-75.0) % (45.0-75.0) Lymphocytes (%) (Auto) % (20.0-45.0) % (20.0-45.0) Monocytes (%) (Auto) % (1.0-10.0) % (1.0-10.0) Eosinophils (%) (Auto) % (0.0-3.0) % (0.0-3.0) Basophils (%) (Auto) % (0.0-2.0) % (0.0-2.0) Differential Total Cells Counted 100 100 Neutrophils % (Manual) 94 % (45-75) H 92 % (45-75) H Lymphocytes % (Manual) 3 % (20-45) L 3 % (20-45) L Monocytes % (Manual) 3 % (1-10) 5 % (1-10) Eosinophils % (Manual) 0 % (0-3) 0 % (0-3) Basophils % (Manual) 0 % (0-2) 0 % (0-2) Band Neutrophils 0 % (0-8) 0 % (0-8) Nucleated Red Blood Cells 2 /100 WBC Platelet Estimate Decreased L Decreased L Platelet Morphology Normal Normal Polychromasia 1+ Anisocytosis 1+ 1+ Prothrombin Time 11.7 SEC (9.30-11.50) H Prothromb Time International Ratio 1.1 (0.9-1.1) Sodium Level 148 MMOL/L (136-145) H 148 MMOL/L (136-145) H Potassium Level 3.7 MMOL/L (3.5-5.1) 2.9 MMOL/L (3.5-5.1) L Chloride Level 111 MMOL/L (98-107) H 111 MMOL/L (98-107) H Carbon Dioxide Level 10 MMOL/L (21-32) L 15 MMOL/L (21-32) L Anion Gap 27 mmol/L (5-15) H 22 mmol/L (5-15) H Blood Urea Nitrogen 102 mg/dL (7-18) H 102 mg/dL (7-18) H Creatinine 8.7 MG/DL (0.55-1.30) H 9.0 MG/DL (0.55-1.30) H Estimat Glomerular Filtration Rate 6.1 mL/min (>60) 5.9 mL/min (>60) Glucose Level 345 MG/DL (74-106) #H 344 MG/DL (74-106) H Calcium Level 6.8 MG/DL (8.5-10.1) L 6.6 MG/DL (8.5-10.1) L Magnesium Level 2.1 MG/DL (1.8-2.4) Hypochromasia 2+ Hepatitis A IgM Antibody Pending Hepatitis B Surface Antigen Pending Hepatitis B Core IgM Antibody Pending Hepatitis C Antibody Pending Height (Feet): 5 Height (Inches): 3.00 Weight (Pounds): 137 Medications Current Medications Medications (Trade) Dose Ordered Sig/Joe Route PRN Reason Start Time Stop Time Status Last Admin Dose Admin Acetaminophen (Tylenol) 650 mg Q4H PRN ORAL Mild Pain/Temp > 100.5 02/06/19 05:45 03/08/19 05:44 Al Hydroxide/Mg Hydroxide (Mylanta) 30 ml PRN ORAL 02/06/19 05:45 03/08/19 05:44 Albuterol/ Ipratropium (Albuterol/ Ipratropium) 3 ml Q4HRT HHN 02/06/19 15:00 02/11/19 14:59 02/07/19 10:44 Chlorhexidine Gluconate (Falguni-Hex 2%) 1 applic DAILY@2000 TOPIC 02/06/19 20:00 03/08/19 19:59 02/06/19 21:01 Dextrose (Dextrose 50%) 25 ml Q30M PRN IV Hypoglycemia 02/06/19 11:30 03/08/19 11:29 Dextrose (Dextrose 50%) 50 ml Q30M PRN IV Hypoglycemia 02/06/19 11:30 03/08/19 11:29 Epoetin Mayo (Epoetin Mayo(ESRD on dialysis)) 10,000 unit MON-MON-MON SUBQ 02/06/19 21:00 03/08/19 20:59 02/06/19 21:02 Fentanyl Citrate 1000 mcg/Sodium Chloride 100 ml @ 0 mls/hr Q24H IV 02/06/19 10:30 02/13/19 10:29 02/07/19 08:28 Heparin Sodium (Porcine) (Heparin 5000 units/ml) 5,000 units EVERY 12 HOURS SUBQ 02/06/19 09:00 03/08/19 08:59 02/07/19 08:32 Heparin Sodium (Porcine) (Heparin Sod 1000 units/ml 10ml) 2,000 unit ONCE PRN IV FOR HD USE 02/07/19 11:45 02/07/19 23:59 Heparin Sodium (Porcine) (Heparin) 1,000 unit POSTHD INJ 02/07/19 11:45 02/07/19 23:59 Heparin Sodium/ Sodium Chloride (Heparin 1000 units/500ml Premix) 1,000 unit ONCE PRN IV PICC LINE 02/06/19 20:00 02/07/19 23:59 Hydrocortisone (Solu-CORTEF) 60 mg EVERY 12 HOURS IV 02/06/19 11:30 03/08/19 11:29 02/07/19 08:30 Insulin Aspart (NovoLOG) Q6HR SUBQ 02/06/19 12:00 03/08/19 11:59 02/07/19 05:55 Iron Sucrose 100 mg/Sodium Chloride 60 ml @ 240 mls/hr BEDTIME IV 02/06/19 21:00 02/10/19 21:14 02/06/19 21:15 Lansoprazole (Prevacid) 30 mg DAILY NG 02/06/19 09:00 03/08/19 08:59 02/07/19 08:30 Lidocaine HCl (Xylocaine 1% 30ml) 30 ml ONCE PRN INJ PICC LINE 02/06/19 20:00 02/07/19 23:59 Meropenem 500 mg/ Sodium Chloride 55 ml @ 110 mls/hr DAILY IVPB 02/06/19 13:00 02/11/19 12:59 02/07/19 08:30 Sodium Bicarbonate 100 ml/Dextrose 1,100 ml @ 60 mls/hr [id number] IV 02/06/19 14:30 03/08/19 14:29 02/07/19 08:40 Sodium Chloride 1,000 ml @ 500 mls/hr Q2H PRN IVLG sbp<90 during hd 02/07/19 11:38 02/07/19 23:59 Assessment/Plan Assessment/Plan: Hematology Consultation REQ MD: Mario Noriega and also Covering Dr. Choi [facility]: Anemia eval, leukocytosis, low plt DOS: 02/07/19 HPI Patient is a 68-year-old male history of COPD, CAD, afib, hypertension, hyperlipidemia, diabetes, bilateral amputations, CKD, Anemia, presented with acute shortness of breath, patient was diagnosed with pneumonia in outside hospital previously. He complained of acute shortness of breath for 3 hours. Patient is a former smoker. Patient coded in the ED, intubated and placed on Mechanical Ventilation. Noted to have severe anemia, evidence of Renal Failure, elevated Troponin. Seen by cards, heme was consulted. Allergies: No Known Allergies Past Medical History: Congestive Heart Failure, Atrial Fibrillation, Chronic Kidney Disease, Coronary Artery Disease, Chronic Obstructive Pulmonary Disease, Hypertension, Hyperlipidemia, Diabetes, Bilateral amputations, GERD, ETOH abuse All Other Systems: NA PE Gen: Deadted, on Mechanical Ventilator Head: normocephalic, atraumatic, ETT, OGT Eyes: bilateral eye PERRL, b/l eye EOMI Respiratory: Bilateral wheezing, rhonchi ++ vent Cardiovascular: normal heart sound, normal peripheral pulses, rrr GI: non tender, soft, no guarding, no rebound Msk normal inspection Neuro: sedated, no focal signs Skin: no rash, warm/dry Labs: reviewed Imaging: reviewed Assessment and Recs: # Anemia of chronic disease (or of iron deficiency) due to underlying chronic medical issues, multifactorial --> Anemia workup has been ordered, rule out gi bleed --> No evidence of hemolysis is noted, peripheral smear has been reviewed. --> Hgb goal >7. Transfuse prn. --> Epogen or iron at this time is not particularly indicated --> Medications have been reviewed --> low threshold for gi evaluation in case has occult + # Leukocytosis/elevated white blood cell count, unspecified likely related to underlying stress reaction, pna, ARDS --> have reviewed peripheral smear and bandemia/neutrophilia noted --> continue antibiotics if they have been started by ID team --> monitor for improvement is on vanc/zosyn # Thrombocytopenia - potential causes multifactorial, evaluate liver and viral etiologies to begin, also could be related to underlying medications patient has received. --> Hep panel and HIV is negative --> US abd to evaluate for cirrhosis with trace ascites --> Peripheral smear ordered to evaluate for blasts /schistocytes --> abx and other meds have been reviewed --> ok for ppx if plt >50k w/ either heparin or lovenox # Respiratory distress with ards --> has been intubated, on a vent --> as per pulm recs # Chronic Obstructive Pulmonary Disease with exacerbation # Pneumonia --> on abx # ESRD - STARTED HD via femoral Junior. ++ PermaCath + AVF. -_> hd per renal # Elevated troponin --> per cards, r/o acs # Bilateral amputations # GERD # ETOH abuse The timing of this note does not necessarily reflect the time of the patient was seen. Greatly appreciate consultation! Nicho Rebolledo MD Feb 07, 2019 12:19
--- NOTE | 2019-02-07 12:30 | NUR ---
NURSE NOTES: TOLERATED DIALYSIS. OUTPUT OF 1L. STILL ON FENTANYL DRIP FOLLOWING HOSPITAL PROTOCOL. ORAL CARE DONE. SUCTIONED AND REPOSITIONED PATIENT. WILL CONTINUE TO MONITOR.
[2019-02-07] MEDS ORDERED: NS 275ml ONE (14:11)
[2019-02-07] MEDS ORDERED: Tubing Blood Filter IV ONE (14:11)
[2019-02-07] MEDS ORDERED: Tubing IV Secondary IV ONE (14:11)
[2019-02-07] MEDS ORDERED: D5 1/2NS 1000ml IV ONE (14:11)
[2019-02-07] MEDS ORDERED: D5NS 1000ml IV ONE (14:11)
--- NOTE | 2019-02-07 14:30 | NUR ---
NURSE NOTES: TURNED OFF FENTANYL DRIP BUT STILL ON RESTRAINTS DUE TO PULLING OBJECTS. TOLERATED VENT SETTINGS. WILL CONTINUE TO MONITOR.
--- NOTE | 2019-02-07 15:03 | NUR ---
RESPIRATORY NOTE: although [place] speaking and with help of RT student for translation, i attempted to wean pt on CPAP PS 8 and also PS 10. pt acknowledged it was hard for him to breathe through the ETT. pt is off sedation and understands plan to wean. will attempt to wean tomorrow am again. RN notified
--- NOTE | 2019-02-07 15:16 | NUR ---
CASE MANAGEMENT:REVIEW 02/07/19 SI:ACUTE RESPIRATORY FAILURE COPD EXACERBATION. PNEUMONIA 98.9 93 26 164/70 100% ON VENT SUPPORT W/40% FIO2 WBC+16.8 H/H-9.5/28.9 PLT-140 K-2.9 BUN+102 CR+9.0 IS: IVF+ NAHCO3 @60/HR IV MEROPENEM QD IV SOLUCORTEF Q12 FENTANYL GTT IV VENOFER QHS DUONEB INH Q4HRS RTC : ICU STATUS DCP: FROM [facility]: [facility]MA CATH FOR HD PICC LINE PLACEMENT
--- NOTE | 2019-02-07 16:38 | NUR ---
NURSE NOTES: PATIENT IS RESPONSIVE BUT NONVERBAL. PATIENT KEPT CLEAN AND DRY. STARTED ON NEPRO. TOLERATING TUBE FEEDING AND VENT SETTINGS. NO SIGNS OF DISTRESS. WILL CONTINUE TO MONITOR.
--- NOTE | 2019-02-07 18:05 | NUR ---
NURSE NOTES: PATIENT KEPT CLEAN AND DRY. OFF RESTRAINTS. NOTED TO BE CALM AND ABLE TO FOLLOWS SIMPLE COMMANDS. NO SIGNS OF DISTRESS OF THE MOMENT. WILL CONTINUE TO MONITOR.
--- NOTE | 2019-02-07 19:13 | NUR ---
HAND-OFF: Report given to Geronimo Chin RN.
--- NOTE | 2019-02-07 19:30 | NUR ---
NURSE NOTES: Received pt in no acute distress. Awake, alert, follow commands. Remains orally intubated and appears to be tolerating current vent settings; fio2 .40, saturating 100%. NSR on the monitor, BP stable, afebrile. OGT in place, TF with Nepro running at 15ml/h with 0 residuals. Left femoral TLC patent, IVF of D5W with 2 amps Na Bicarb continues at 60ml/h.Right femoral Junior cath intact. SPC patent, exit site clean and dry, UOP clear straw. Off restraints and pt calm, cooperative and not attempting to touch/pull the tubes. Sedation with Fentanyl gtt on hold at this time as pt is quiet, calm and follow commands.S/P BBKA with stumps well healed. Lobito continue to monitor.
[2019-02-07] MEDS: Dyna-Hex 2% Top Sol 2oz TOPIC SCH (20:47)
[2019-02-07] MEDS: Iron Sucrose 100 MG in NS 55 ML IV SCH (20:49)
--- NOTE | 2019-02-07 22:00 | NUR ---
NURSE NOTES: Awake but calm and cooperative. Suctioned for thick brownish sputum. Oral care rendered. Shaved as well.
--- NOTE | 2019-02-07 23:45 | Consultation ---
DATE OF CONSULTATION: 02/07/2019 CHIEF COMPLAINT: 1. Abnormal liver function tests. 2. Dysphagia. HISTORY OF PRESENT ILLNESS: Most of the history per chart. The patient is intubated in ICU. The patient is a 68-year-old male with numerous medical problems including history of end-stage renal disease on hemodialysis, hypertension, history of atrial fibrillation, coronary artery disease, COPD, admitted to the hospital with shortness of breath. Since admission, he has been intubated for respiratory failure and he had significantly abnormal liver function tests, so GI consultation requested for evaluation. PAST MEDICAL HISTORY: 1. History of COPD. 2. Coronary artery disease. 3. History of atrial fibrillation. 4. Hypertension. 5. Hyperlipidemia. 6. Diabetes. 7. Peripheral vascular disease with bilateral amputations. 8. Anemia. 9. GERD. 10. Constipation. ALLERGIES: No known drug allergies. MEDICATIONS: Please see medication reconciliation list. FAMILY HISTORY: Noncontributory. REVIEW OF SYSTEMS: Unable to obtain. PAST SURGICAL HISTORY: The patient has bilateral amputations, lower extremity amputations. PHYSICAL EXAMINATION: VITAL SIGNS: Temperature is afebrile, pulse is 87, respirations 26, blood pressure is 140/62. HEENT: Normocephalic and atraumatic. Pale conjunctiva. NECK: Supple. No evidence of obvious lymphadenopathy. CARDIOVASCULAR: Tachy. Regular rate. Plus S1 and S2. LUNGS: Decreased breath sounds bilaterally based on the supine exam. ABDOMEN: Soft. Mildly distended. Mildly tympanic to percussion. Bowel sounds are hypoactive. No rebound. No guarding. No peritoneal sign. EXTREMITIES: The patient has evidence of peripheral vascular disease and bilateral lower extremity amputation. LABORATORY AND DIAGNOSTIC DATA: Labs, white count 16,000, hemoglobin 9.5, hematocrit 28, platelet count is 140,000. Chem-7, sodium 148, potassium 2.9, BUN 102, creatinine 9.0, glucose is 344. Troponin elevated at 0.33. Liver function, AST of 559, ALT of 251, alkaline phosphatase of 118 . ASSESSMENT: 1. Anemia. 2. Dysphagia. 3. Respiratory failure. 4. COPD. 5. CHF. 6. Diabetes. 7. Abnormal liver function tests. 8. Elevated troponin. 9. Hypertension. 10. Hypercholesterolemia. 11. Peripheral vascular disease. PLAN: 1. Start NG-tube feeding. 2. Monitor for residuals. Does have abnormal liver function tests most likely secondary to respiratory distress and also SD. We will recommend follow the liver function tests for tomorrow. Consider abdominal ultrasound if needed, hepatitis panel. Anemia most likely secondary to chronic disease. Most probably renal disease. We will do anemia workup. Kelvin Andrew M.D. DR: Mary JOB#: [id number] CC:
[2019-02-08] VITALS (24 sets, daily range): BP systolic 131–166; BP diastolic 56–91
--- NOTE | 2019-02-08 | NUR ---
NURSE NOTES: Skin warm, temp 99.3 axillary. Accucheck 344 covered with 10units Novolog. Left femoral TLC intact. BP stable, no distress.
[2019-02-08] MEDS: NovoLOG Insulin Flexpen SUBQ SCH ×5 (00:01→23:41)
--- NOTE | 2019-02-08 01:40 | NUR ---
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 Placed on contact isolation.
[2019-02-08] MEDS: Sodium Bicarbonate 100 ML in D5W 1000ml 1,000 ML IV SCH ×2 (02:14→21:39)
--- NOTE | 2019-02-08 02:30 | Progress Note ---
DATE: 02/07/2019 CARDIOLOGY PROGRESS NOTE SUBJECTIVE: The patient remains in the intensive care unit. Orally intubated. Mechanically ventilated. He is off pressors. Junior catheter has been placed for dialysis. OBJECTIVE: VITAL SIGNS: Blood pressure 141/58, pulse 81, respiratory rate 26, and afebrile. LUNGS: Bilateral breath sounds. CARDIAC: Regular rhythm and rate. Normal S1 and S2. ABDOMEN: Soft. EXTREMITIES: Trace edema. LABORATORY DATA: WBC count 16.8 and hemoglobin 9.5. Sodium 148, potassium 3.9, BUN 102, creatinine 9, and bicarbonate 15. IMPRESSION: 1. Status post full arrest. 2. Sepsis with shock. 3. Acute on chronic renal failure. 4. Dehydration. 5. Hyponatremia. 6. Hypokalemia. 7. Hyperchloremia. 8. Metabolic acidosis acute. 9. Acute myocardial ischemia. 10. Shock liver. PLAN: 1. Antimicrobials. 2. Ventilator support. 3. Hemodialysis per nephrology. 4. Follow up troponin level. 5. Adjust potassium levels ____. 6. DVT prophylaxis. 7. Condition remains critical with prognosis guarded. Jamari Gale M.D. DR: MELODIE JOB#: [id number] CC:
[2019-02-08] MEDS: Albuterol/Ipratropium 3ml neb HHN SCH ×6 (02:58→23:07)
--- NOTE | 2019-02-08 04:00 | NUR ---
NURSE NOTES: Awake, no distress, VSS. Complete bed bath done. Redressed left femoral TLC.TF now up to goal of 35ml/h well tolerated. No vent changes, sats 96-97%
[2019-02-08 04:53] LABS: HEMATOCRIT 29.3 % (42.0-52.0); HEMOGLOBIN 9.9 G/DL (14.2-18.0); MEAN CORPUSCULAR VOLUME 87 FL (80-99); PLATELET COUNT 144 K/UL (150-450); RED BLOOD COUNT 3.37 M/UL (4.70-6.10); WHITE BLOOD COUNT 20.4 K/UL (4.8-10.8)
[2019-02-08 05:27] LABS: ALANINE AMINOTRANSFERASE 110 U/L (12-78); ALBUMIN/GLOBULIN RATIO 0.5 (1.0-2.7); ALKALINE PHOSPHATASE 98 U/L (46-116); ANION GAP 19 mmol/L (5-15); ASPARTATE AMINO TRANSFERASE 48 U/L (15-37); BILIRUBIN,TOTAL 0.7 MG/DL (0.2-1.0); BLOOD UREA NITROGEN 66 mg/dL (7-18); CALCIUM 7.3 MG/DL (8.5-10.1); CARBON DIOXIDE 20 MMOL/L (21-32); CHLORIDE 106 MMOL/L (98-107); CREATININE 6.5 MG/DL (0.55-1.30); SODIUM 145 MMOL/L (136-145)
[2019-02-08 05:32] LABS: POTASSIUM 2.3 MMOL/L (3.5-5.1)
[2019-02-08 05:34] LABS: % IRON SATURATION 79 % (15-50); IRON 174 ug/dL (50-175); TOTAL IRON BINDING CAPACITY 220 ug/dL (250-450)
--- NOTE | 2019-02-08 06:30 | NUR ---
NURSE NOTES: Chemistry lab reports K of 2.3. Called to Dr Quezada, awaiting call back
--- NOTE | 2019-02-08 06:50 | NUR ---
NURSE NOTES: Order received from Dr Quezada to give KCL 30 meq IVPB over 3 hrs
--- NOTE | 2019-02-08 07:10 | NUR ---
NURSE NOTES: Received pt from [facility]ya. Patient is orally intubated, ETT 7.5/23cml at lip line, vent settings AC 26/tv 550/Fio2 40%/PEEP 12. OGT running Nepro@35ml/hr, flushed 160ml free water, hob 35 degrees, 10 ml residual noted. Suprapubic catheter draining to gravity. Left femoral TLC running D5W w/x2 amps bicarb@60ml/hr. Bilateral BKA, elevated on pillow support. Bed locked, alarmed and in lowest position. Will continue plan of care.
--- NOTE | 2019-02-08 07:23 | NUR ---
HAND-OFF: Report given to Meme Coleman RN.
--- NOTE | 2019-02-08 08:51 | General Progress Note ---
Assessment/Plan Assessment/Plan: 1. History of COPD. 2. Coronary artery disease. 3. History of atrial fibrillation. 4. Hypertension. 5. Hyperlipidemia. 6. Diabetes. 7. Peripheral vascular disease with bilateral amputations. 8. Anemia. 9. GERD. 10. Constipation 11. dysphagia NGTF respiratory care fu labs replace K Subjective ROS Limited/Unobtainable: No Allergies: Coded Allergies: No Known Allergies (Unverified , 09/25/17) Objective Last 24 Hour Vital Signs Date Time Temp Pulse Resp B/P (MAP) Pulse Ox O2 Delivery O2 Flow Rate FiO2 02/08/19 07:16 101 26 100 Mechanical Ventilator 40 02/08/19 07:06 103 28 40 02/08/19 07:06 103 26 100 Mechanical Ventilator 40 02/08/19 06:00 94 26 164/63 (96) 100 02/08/19 05:01 95 26 40 02/08/19 05:00 94 26 161/62 (95) 100 02/08/19 04:00 40 02/08/19 04:00 Mechanical Ventilator 02/08/19 04:00 99.1 101 26 154/59 (90) 98 02/08/19 04:00 98 02/08/19 03:02 101 26 100 Mechanical Ventilator 40 02/08/19 03:00 99 25 156/59 (91) 100 02/08/19 02:55 98 26 100 Mechanical Ventilator 40 02/08/19 02:48 99 26 40 02/08/19 02:00 100 25 159/58 (91) 98 02/08/19 01:13 103 26 40 02/08/19 01:00 103 26 154/56 (88) 98 02/08/19 00:00 99.3 107 23 135/85 (102) 89 02/08/19 00:00 Mechanical Ventilator 02/08/19 00:00 40 02/08/19 00:00 104 02/07/19 23:12 110 26 100 Mechanical Ventilator 40 02/07/19 23:03 98 27 40 02/07/19 23:00 96 25 162/60 (94) 97 02/07/19 23:00 96 26 97 Mechanical Ventilator 40 02/07/19 22:00 95 26 154/58 (90) 99 02/07/19 21:07 97 26 40 02/07/19 21:00 95 26 159/63 (95) 98 02/07/19 20:00 40 02/07/19 20:00 94 02/07/19 20:00 98.2 94 24 155/58 (90) 99 02/07/19 20:00 Mechanical Ventilator 02/07/19 19:00 93 26 155/62 (93) 100 02/07/19 18:50 90 26 100 Mechanical Ventilator 40 02/07/19 18:43 92 26 40 02/07/19 18:40 92 26 100 Mechanical Ventilator 40 02/07/19 18:00 93 26 155/62 (93) 100 02/07/19 17:00 94 25 164/64 (97) 98 02/07/19 16:58 95 26 40 02/07/19 16:00 Mechanical Ventilator 02/07/19 16:00 40 02/07/19 16:00 94 02/07/19 16:00 97.9 94 25 158/64 (95) 99 02/07/19 15:30 93 26 156/63 (94) 98 02/07/19 15:15 94 23 163/67 (99) 100 02/07/19 15:10 97 26 40 02/07/19 15:08 96 26 100 Mechanical Ventilator 40 02/07/19 15:02 94 26 100 Mechanical Ventilator 40 02/07/19 15:00 93 26 163/69 (100) 100 02/07/19 14:45 93 26 163/69 (100) 100 02/07/19 14:30 91 26 158/65 (96) 100 02/07/19 14:15 91 26 158/65 (96) 100 02/07/19 14:00 92 26 156/64 (94) 99 02/07/19 14:00 26 Mechanical Ventilator 40 02/07/19 13:45 92 26 156/64 (94) 99 02/07/19 13:30 93 26 157/62 (93) 99 02/07/19 13:15 93 26 157/62 (93) 99 02/07/19 13:00 96 26 155/63 (93) 99 02/07/19 13:00 26 Mechanical Ventilator 40 02/07/19 12:52 95 26 40 02/07/19 12:45 95 26 156/63 (94) 99 02/07/19 12:30 101 24 150/67 (94) 98 02/07/19 12:15 93 26 164/70 (101) 100 02/07/19 12:00 95 02/07/19 12:00 98.9 93 26 164/70 (101) 100 02/07/19 12:00 40 02/07/19 12:00 26 40 02/07/19 12:00 Mechanical Ventilator 02/07/19 11:45 87 26 147/62 (90) 100 02/07/19 11:30 87 26 147/62 (90) 100 02/07/19 11:15 87 26 148/62 (90) 99 02/07/19 11:00 87 26 148/62 (90) 99 02/07/19 11:00 26 Mechanical Ventilator 40 02/07/19 10:50 81 26 100 Mechanical Ventilator 40 02/07/19 10:45 83 22 148/62 (90) 100 02/07/19 10:44 81 26 40 02/07/19 10:44 86 26 99 Mechanical Ventilator 40 02/07/19 10:30 79 26 153/61 (91) 100 02/07/19 10:00 26 Mechanical Ventilator 40 02/07/19 10:00 78 26 143/62 (89) 100 02/07/19 09:45 78 26 143/62 (89) 100 02/07/19 09:30 79 26 143/60 (87) 99 02/07/19 09:15 79 26 141/60 (87) 99 02/07/19 09:12 79 26 40 02/07/19 09:00 80 26 141/60 (87) 99 02/07/19 09:00 26 Mechanical Ventilator 40 Intake and Output 02/07/19 02/08/19 19:00 07:00 Intake Total 1067 ml 1050 ml Output Total 1560 ml 750 ml Balance -493 ml 300 ml Intake Oral 0 ml Free Water 100 ml 120 ml IV Total 907 ml 660 ml Tube Feeding 60 ml 270 ml Output Urine Total 500 ml 750 ml Gastric Drainage Total 60 ml Hemodialysis UF 1000 ml Laboratory Tests 02/07/19 09:25: Arterial Blood pH 7.338L, Arterial Blood Partial Pressure CO2 24.2*L, Arterial Blood Partial Pressure O2 95.5, Arterial Blood HCO3 12.7*L, Arterial Blood Oxygen Saturation 96.1, Arterial Blood Base Excess -11.6*L, Trevor Test Positive 8/2/19 03:50: White Blood Count 20.4H, Red Blood Count 3.37L, Hemoglobin 9.9L, Hematocrit 29.3L, Mean Corpuscular Volume 87, Mean Corpuscular Hemoglobin 29.3, Mean Corpuscular Hemoglobin Concent 33.7, Red Cell Distribution Width 14.0, Platelet Count 144L, Mean Platelet Volume 9.0, Neutrophils (%) (Auto) , Lymphocytes (%) ( Auto) , Monocytes (%) (Auto) , Eosinophils (%) (Auto) , Basophils (%) (Auto) , Differential Total Cells Counted 100, Neutrophils % (Manual) 96H, Lymphocytes % (Manual) 2L, Monocytes % (Manual) 2, Eosinophils % (Manual) 0, Basophils % ( Manual) 0, Band Neutrophils 0, Nucleated Red Blood Cells 3, Platelet Estimate DecreasedL, Platelet Morphology Normal, Hypochromasia 2+, Anisocytosis 1+, Prothrombin Time 11.0, Prothromb Time International Ratio 1.0, Sodium Level 145 , Potassium Level 2.3*L, Chloride Level 106, Carbon Dioxide Level 20L, Anion Gap 19H, Blood Urea Nitrogen 66H, Creatinine 6.5H, Estimat Glomerular Filtration Rate 8.6, Glucose Level 389H, Hemoglobin A1c 6.3H, Calcium Level 7.3L , Iron Level 174, Total Iron Binding Capacity 220L, Percent Iron Saturation 79H , Unsaturated Iron Binding 46L, Total Bilirubin 0.7, Aspartate Amino Transf (AST /SGOT) 48H, Alanine Aminotransferase (ALT/SGPT) 110H, Alkaline Phosphatase 98, Troponin I 0.275H, Total Protein 6.1L, Albumin 2.0L, Globulin 4.1, Albumin/ Globulin Ratio 0.5L, Amylase Level 41, Lipase 201, Folate 12.6, Hepatitis A IgM Antibody [Pending], Hepatitis B Surface Antigen [Pending], Hepatitis B Core IgM Antibody [Pending], Hepatitis C Antibody [Pending] Height (Feet): 5 Height (Inches): 3.00 Weight (Pounds): 135 General Appearance: lethargic EENT: normal ENT inspection Neck: supple Cardiovascular: tachycardia Respiratory/Chest: decreased breath sounds Abdomen: normal bowel sounds Extremities: non-tender Kelvin Andrew MD Feb 08, 2019 08:51
[2019-02-08] MEDS: Hydrocortisone 100mg Inj IV SCH (09:10)
[2019-02-08] MEDS: Meropenem 500 MG in NS 55 ML IVPB SCH (09:10)
--- NOTE | 2019-02-08 09:10 | NUR ---
NURSE NOTES: Oral care done, turned and repositioned.
[2019-02-08] MEDS: Heparin 5000 units/ml inj SUBQ SCH ×2 (09:11→20:45)
--- NOTE | 2019-02-08 09:26 | NUR ---
CASE MANAGEMENT:REVIEW 02/08/19 SI:ACUTE RESPIRATORY FAILURE COPD EXACERBATION. PNEUMONIA 99.1 103 26 164/63 100% ON VENT SUPPORT VENT: FIO2~40% AC~26 TV~550 WBC+20.4 K-2.3 BUN+66 CR+6.5 TROPONIN(+) 0.275 IS: IV KCL Q1HRS X3 IVF+ NAHCO3 @60/HR IV MEROPENEM QD IV SOLUCORTEF Q12 FENTANYL GTT IV VENOFER QHS DUONEB INH Q4HRS RTC : ICU STATUS DCP: FROM [facility] PLAN: [facility] CATH FOR HD PICC LINE PLACEMENT
--- NOTE | 2019-02-08 10:07 | Pulmonolgy Critical Care Note ---
Critical Care - Asmt/Plan Assessment/Plan: Pulmonary CCM Progress Note Assessment/Plan Assessment/Plan Impression: Respiratory failure, acute Chronic Obstructive Pulmonary Disease with exacerbation Pneumonia Acute kidney injury, h/o Chronic Kidney Disease Elevated troponin Anemia Congestive Heart Failure Previous Atrial Fibrillation Coronary Artery Disease Hypertension Hyperlipidemia Diabetes Bilateral amputations GERD ETOH abuse Plan AC Mechanical Ventilation- wean PEEP off pressors and monitor IV Antibiotics- ID noted HHN Monitor labs LE dupplex - SCD if negative Transfuse as needed HD for now [facility] and Renal Consultation medications/laboratory data/nursing notes/ICU care reviewed in detail note reviewed and edited care discussed with RN and RT ICU time spent 40 minutes Critical Care - Subjective Interval Events: remains ill dillan placed in ICU consultants appreciated ROS Limited/Unobtainable: Yes Condition: critical EKG Rhythm: Sinus Rhythm Critical Care - Objective ET-Tube: 7.5 ET Position: 23 Vital Signs Noted Labs Test 02/05/19 23:10 02/05/19 23:50 02/06/19 00:37 02/06/19 01:58 White Blood Count 14.4 K/UL (4.8-10.8) Red Blood Count 2.27 M/UL (4.70-6.10) Hemoglobin 6.4 G/DL (14.2-18.0) Hematocrit 19.4 % (42.0-52.0) Mean Corpuscular Volume 86 FL (80-99) Mean Corpuscular Hemoglobin 28.0 PG (27.0-31.0) Mean Corpuscular Hemoglobin Concent 32.8 G/DL (32.0-36.0) Red Cell Distribution Width 14.2 % (11.6-14.8) Platelet Count 195 K/UL (150-450) Mean Platelet Volume 7.6 FL (6.5-10.1) Neutrophils (%) (Auto) % (45.0-75.0) Lymphocytes (%) (Auto) % (20.0-45.0) Monocytes (%) (Auto) % (1.0-10.0) Eosinophils (%) (Auto) % (0.0-3.0) Basophils (%) (Auto) % (0.0-2.0) Prothrombin Time 11.2 SEC (9.30-11.50) Prothromb Time International Ratio 1.1 (0.9-1.1) Activated Partial Thromboplast Time 32 SEC (23-33) Urine Color Pale yellow Urine Appearance Clear Urine pH 5 (4.5-8.0) Urine Specific [place] 1.015 (1.005-1.035) Urine Protein 4+ (NEGATIVE) Urine Glucose (UA) 3+ (NEGATIVE) Urine Ketones Negative (NEGATIVE) Urine Blood 3+ (NEGATIVE) Urine Nitrite Negative (NEGATIVE) Urine Bilirubin Negative (NEGATIVE) Urine Urobilinogen Normal MG/DL (0.0-1.0) Urine Leukocyte Esterase Negative (NEGATIVE) Urine RBC 5-10 /HPF (0 - 0) Urine WBC 0-2 /HPF (0 - 0) Urine Squamous Epithelial Cells None /LPF (NONE/OCC) Urine Bacteria Few /HPF (NONE) Sodium Level 145 MMOL/L (136-145) Potassium Level 3.9 MMOL/L (3.5-5.1) Chloride Level 110 MMOL/L (98-107) Carbon Dioxide Level 10 MMOL/L (21-32) Anion Gap 25 mmol/L (5-15) Blood Urea Nitrogen 95 mg/dL (7-18) Creatinine 9.3 MG/DL (0.55-1.30) Estimat Glomerular Filtration Rate 5.7 mL/min (>60) Glucose Level 121 MG/DL (74-106) Lactic Acid Level 2.60 mmol/L (0.4-2.0) 1.60 mmol/L (0.66-2.22) Calcium Level 7.6 MG/DL (8.5-10.1) Total Bilirubin 0.7 MG/DL (0.2-1.0) Direct Bilirubin 0.2 MG/DL (0.0-0.3) Aspartate Amino Transf (AST/SGOT) 51 U/L (15-37) Alanine Aminotransferase (ALT/SGPT) 42 U/L (12-78) Alkaline Phosphatase 133 U/L (46-116) Total Creatine Kinase 245 U/L (26-308) Creatine Kinase MB 9.6 NG/ML (0.0-3.6) Creatine Kinase MB Relative Index 3.9 Troponin I 0.238 ng/mL (0.000-0.056) Pro-B-Type Natriuretic Peptide > 21976 pg/mL (0-125) Total Protein 7.5 G/DL (6.4-8.2) Albumin 2.8 G/DL (3.4-5.0) Globulin 4.7 g/dL Albumin/Globulin Ratio 0.6 (1.0-2.7) Lipase 374 U/L (73-393) Venous Blood pH 7.160 Venous Blood Partial Pressure CO2 22.6 Venous Blood Partial Pressure O2 43.9 Venous Blood HCO3 7.9 Venous Blood Total Carbon Dioxide 22.6 Venous Bld O2 Saturation (Measured) 43.9 Venous Blood Oxygen Saturation 65.3 Venous Blood Base Excess -19.1 Methemoglobin 1.0 Sodium (Blood Gas) Triglycerides Level 84 MG/DL (30-150) Test 02/06/19 04:54 02/06/19 06:12 02/06/19 07:45 02/06/19 08:09 Arterial Blood pH 6.899 (7.350-7.450) 7.216 (7.350-7.450) 7.282 (7.350-7.450) Arterial Blood Partial Pressure CO2 43.0 mmHg (35.0-45.0) 28.0 mmHg (35.0-45.0) 24.0 mmHg (35.0-45.0) Arterial Blood Partial Pressure O2 72.5 mmHg (75.0-100.0) 149.0 mmHg (75.0-100.0) 250.6 mmHg (75.0-100.0) Arterial Blood HCO3 8.2 mmol/L (22.0-26.0) 11.1 mmol/L (22.0-26.0) 11.1 mmol/L (22.0-26.0) Arterial Blood Oxygen Saturation 83.9 % (95-100) 98.0 % (95-100) 98.9 % (95-100) Arterial Blood Base Excess -23.3 (-2-2) -15.3 (-2-2) -14.2 (-2-2) Trevor Test Positive Positive Positive White Blood Count 18.3 K/UL (4.8-10.8) Red Blood Count 2.50 M/UL (4.70-6.10) Hemoglobin 7.2 G/DL (14.2-18.0) Hematocrit 22.5 % (42.0-52.0) Mean Corpuscular Volume 90 FL (80-99) Mean Corpuscular Hemoglobin 29.0 PG (27.0-31.0) Mean Corpuscular Hemoglobin Concent 32.1 G/DL (32.0-36.0) Red Cell Distribution Width 14.3 % (11.6-14.8) Platelet Count 153 K/UL (150-450) Mean Platelet Volume 8.1 FL (6.5-10.1) Neutrophils (%) (Auto) % (45.0-75.0) Lymphocytes (%) (Auto) % (20.0-45.0) Monocytes (%) (Auto) % (1.0-10.0) Eosinophils (%) (Auto) % (0.0-3.0) Basophils (%) (Auto) % (0.0-2.0) Differential Total Cells Counted 100 Neutrophils % (Manual) 97 % (45-75) Lymphocytes % (Manual) 1 % (20-45) Monocytes % (Manual) 2 % (1-10) Eosinophils % (Manual) 0 % (0-3) Basophils % (Manual) 0 % (0-2) Band Neutrophils 0 % (0-8) Nucleated Red Blood Cells 5 /100 WBC Platelet Estimate Adequate Platelet Morphology Normal Hypochromasia 3+ Anisocytosis 1+ Sodium Level 152 MMOL/L (136-145) Potassium Level 3.7 MMOL/L (3.5-5.1) Chloride Level 117 MMOL/L (98-107) Carbon Dioxide Level 16 MMOL/L (21-32) Anion Gap 20 mmol/L (5-15) Blood Urea Nitrogen 94 mg/dL (7-18) Creatinine 8.5 MG/DL (0.55-1.30) Estimat Glomerular Filtration Rate 6.3 mL/min (>60) Glucose Level 190 MG/DL (74-106) Calcium Level 6.4 MG/DL (8.5-10.1) Total Bilirubin 1.0 MG/DL (0.2-1.0) Aspartate Amino Transf (AST/SGOT) 549 U/L (15-37) Alanine Aminotransferase (ALT/SGPT) 251 U/L (12-78) Alkaline Phosphatase 118 U/L (46-116) Troponin I 0.316 ng/mL (0.000-0.056) Total Protein 5.8 G/DL (6.4-8.2) Albumin 2.1 G/DL (3.4-5.0) Globulin 3.7 g/dL Albumin/Globulin Ratio 0.6 (1.0-2.7) Test 02/06/19 11:55 02/06/19 12:56 02/06/19 19:05 02/07/19 04:00 Troponin I 0.330 ng/mL (0.000-0.056) Arterial Blood pH 7.224 (7.350-7.450) Arterial Blood Partial Pressure CO2 19.6 mmHg (35.0-45.0) Arterial Blood Partial Pressure O2 151.2 mmHg (75.0-100.0) Arterial Blood HCO3 7.9 mmol/L (22.0-26.0) Arterial Blood Oxygen Saturation 98.0 % (95-100) Arterial Blood Base Excess -18.0 (-2-2) Trevor Test Positive White Blood Count 22.5 K/UL (4.8-10.8) 16.8 K/UL (4.8-10.8) Red Blood Count 3.26 M/UL (4.70-6.10) 3.28 M/UL (4.70-6.10) Hemoglobin 9.4 G/DL (14.2-18.0) 9.5 G/DL (14.2-18.0) Hematocrit 28.6 % (42.0-52.0) 28.9 % (42.0-52.0) Mean Corpuscular Volume 88 FL (80-99) 88 FL (80-99) Mean Corpuscular Hemoglobin 28.8 PG (27.0-31.0) 29.0 PG (27.0-31.0) Mean Corpuscular Hemoglobin Concent 32.8 G/DL (32.0-36.0) 32.9 G/DL (32.0-36.0) Red Cell Distribution Width 13.5 % (11.6-14.8) 13.7 % (11.6-14.8) Platelet Count 145 K/UL (150-450) 140 K/UL (150-450) Mean Platelet Volume 7.0 FL (6.5-10.1) 8.2 FL (6.5-10.1) Neutrophils (%) (Auto) % (45.0-75.0) % (45.0-75.0) Lymphocytes (%) (Auto) % (20.0-45.0) % (20.0-45.0) Monocytes (%) (Auto) % (1.0-10.0) % (1.0-10.0) Eosinophils (%) (Auto) % (0.0-3.0) % (0.0-3.0) Basophils (%) (Auto) % (0.0-2.0) % (0.0-2.0) Differential Total Cells Counted 100 Neutrophils % (Manual) 94 % (45-75) Lymphocytes % (Manual) 3 % (20-45) Monocytes % (Manual) 3 % (1-10) Eosinophils % (Manual) 0 % (0-3) Basophils % (Manual) 0 % (0-2) Band Neutrophils 0 % (0-8) Nucleated Red Blood Cells 2 /100 WBC Platelet Estimate Decreased Platelet Morphology Normal Polychromasia 1+ Anisocytosis 1+ Prothrombin Time 11.7 SEC (9.30-11.50) Prothromb Time International Ratio 1.1 (0.9-1.1) Sodium Level 148 MMOL/L (136-145) 148 MMOL/L (136-145) Potassium Level 3.7 MMOL/L (3.5-5.1) 2.9 MMOL/L (3.5-5.1) Chloride Level 111 MMOL/L (98-107) 111 MMOL/L (98-107) Carbon Dioxide Level 10 MMOL/L (21-32) 15 MMOL/L (21-32) Anion Gap 27 mmol/L (5-15) 22 mmol/L (5-15) Blood Urea Nitrogen 102 mg/dL (7-18) 102 mg/dL (7-18) Creatinine 8.7 MG/DL (0.55-1.30) 9.0 MG/DL (0.55-1.30) Estimat Glomerular Filtration Rate 6.1 mL/min (>60) 5.9 mL/min (>60) Glucose Level 345 MG/DL (74-106) 344 MG/DL (74-106) Calcium Level 6.8 MG/DL (8.5-10.1) 6.6 MG/DL (8.5-10.1) Magnesium Level 2.1 MG/DL (1.8-2.4) Objective: WDWN poor LOC on vent clear breath sounds bilaterally without rhonchi or wheeze [id number] without MRG NABS nontender no HSM no CC nonfocal; sedated Micro: Microbiology Date/Time Source Procedure Growth Status 02/05/19 23:10 Blood Blood Culture - Preliminary NO GROWTH AFTER 24 HOURS Resulted 02/05/19 22:55 Blood Blood Culture - Preliminary NO GROWTH AFTER 24 HOURS Resulted 02/06/19 03:00 Rectum Received Critical Care - Objective Last 24 Hour Vital Signs Date Time Temp Pulse Resp B/P (MAP) Pulse Ox O2 Delivery O2 Flow Rate FiO2 02/08/19 08:58 96 26 40 02/08/19 08:00 40 02/08/19 08:00 Mechanical Ventilator 02/08/19 07:16 101 26 100 Mechanical Ventilator 40 02/08/19 07:06 103 28 40 02/08/19 07:06 103 26 100 Mechanical Ventilator 40 02/08/19 06:00 94 26 164/63 (96) 100 02/08/19 05:01 95 26 40 02/08/19 05:00 94 26 161/62 (95) 100 02/08/19 04:00 40 02/08/19 04:00 Mechanical Ventilator 02/08/19 04:00 99.1 101 26 154/59 (90) 98 02/08/19 04:00 98 02/08/19 03:02 101 26 100 Mechanical Ventilator 40 02/08/19 03:00 99 25 156/59 (91) 100 02/08/19 02:55 98 26 100 Mechanical Ventilator 40 02/08/19 02:48 99 26 40 02/08/19 02:00 100 25 159/58 (91) 98 02/08/19 01:13 103 26 40 02/08/19 01:00 103 26 154/56 (88) 98 02/08/19 00:00 99.3 107 23 135/85 (102) 89 02/08/19 00:00 Mechanical Ventilator 02/08/19 00:00 40 02/08/19 00:00 104 02/07/19 23:12 110 26 100 Mechanical Ventilator 40 02/07/19 23:03 98 27 40 02/07/19 23:00 96 25 162/60 (94) 97 02/07/19 23:00 96 26 97 Mechanical Ventilator 40 02/07/19 22:00 95 26 154/58 (90) 99 02/07/19 21:07 97 26 40 02/07/19 21:00 95 26 159/63 (95) 98 02/07/19 20:00 40 02/07/19 20:00 94 02/07/19 20:00 98.2 94 24 155/58 (90) 99 02/07/19 20:00 Mechanical Ventilator 02/07/19 19:00 93 26 155/62 (93) 100 02/07/19 18:50 90 26 100 Mechanical Ventilator 40 02/07/19 18:43 92 26 40 02/07/19 18:40 92 26 100 Mechanical Ventilator 40 02/07/19 18:00 93 26 155/62 (93) 100 02/07/19 17:00 94 25 164/64 (97) 98 02/07/19 16:58 95 26 40 02/07/19 16:00 Mechanical Ventilator 02/07/19 16:00 40 02/07/19 16:00 94 02/07/19 16:00 97.9 94 25 158/64 (95) 99 02/07/19 15:30 93 26 156/63 (94) 98 02/07/19 15:15 94 23 163/67 (99) 100 02/07/19 15:10 97 26 40 02/07/19 15:08 96 26 100 Mechanical Ventilator 40 02/07/19 15:02 94 26 100 Mechanical Ventilator 40 02/07/19 15:00 93 26 163/69 (100) 100 02/07/19 14:45 93 26 163/69 (100) 100 02/07/19 14:30 91 26 158/65 (96) 100 02/07/19 14:15 91 26 158/65 (96) 100 02/07/19 14:00 92 26 156/64 (94) 99 02/07/19 14:00 26 Mechanical Ventilator 40 02/07/19 13:45 92 26 156/64 (94) 99 02/07/19 13:30 93 26 157/62 (93) 99 02/07/19 13:15 93 26 157/62 (93) 99 02/07/19 13:00 96 26 155/63 (93) 99 02/07/19 13:00 26 Mechanical Ventilator 40 02/07/19 12:52 95 26 40 02/07/19 12:45 95 26 156/63 (94) 99 02/07/19 12:30 101 24 150/67 (94) 98 02/07/19 12:15 93 26 164/70 (101) 100 02/07/19 12:00 95 02/07/19 12:00 98.9 93 26 164/70 (101) 100 02/07/19 12:00 40 02/07/19 12:00 26 40 02/07/19 12:00 Mechanical Ventilator 02/07/19 11:45 87 26 147/62 (90) 100 02/07/19 11:30 87 26 147/62 (90) 100 02/07/19 11:15 87 26 148/62 (90) 99 02/07/19 11:00 87 26 148/62 (90) 99 02/07/19 11:00 26 Mechanical Ventilator 40 02/07/19 10:50 81 26 100 Mechanical Ventilator 40 02/07/19 10:45 83 22 148/62 (90) 100 02/07/19 10:44 81 26 40 02/07/19 10:44 86 26 99 Mechanical Ventilator 40 02/07/19 10:30 79 26 153/61 (91) 100 Micro: Microbiology Date/Time Source Procedure Growth Status 02/06/19 11:55 Blood Blood Culture - Preliminary NO GROWTH AFTER 24 HOURS Resulted 02/05/19 23:10 Blood Blood Culture - Preliminary NO GROWTH AFTER 48 HOURS Resulted 02/05/19 22:55 Blood Blood Culture - Preliminary NO GROWTH AFTER 48 HOURS Resulted 02/06/19 03:00 Rectum - Final NO CARBAPENEM-RESISTANT ENTEROBACTERI... Complete 02/06/19 03:00 Rectum VRE Culture - Final Enterococcus Faecium - Vre Complete Accucheck: 389 Critical Care - Subjective ROS Limited/Unobtainable: No Condition: improving FI02: 40 Vent Support Breath Rate: 26 Vent Support Mode: AC Vent Tidal Volume: 550 Sputum Amount: Small PEEP: 8.0 PIP: 28 Tube Feeding Amount: 35 I&O: Intake and Output 02/07/19 02/08/19 19:00 07:00 Intake Total 1067 ml 1085 ml Output Total 1560 ml 850 ml Balance -493 ml 235 ml Intake Oral 0 ml Free Water 100 ml 120 ml IV Total 907 ml 660 ml Tube Feeding 60 ml 305 ml Output Urine Total 500 ml 850 ml Gastric Drainage Total 60 ml Hemodialysis UF 1000 ml ET-Tube: 7.5 ET Position: 23 Jamari Chambers MD Feb 08, 2019 10:07
[2019-02-08] MEDS ORDERED: NS 275ml ONE (10:08)
--- NOTE | 2019-02-08 10:12 | NUR ---
*-* INSURANCE *-* ALL CLINICALS FROM DOA TO PRESENT AND REVIEWS HAVE BEEN FAXED TO: / DEPT S/W [facility] @ [phone] - [employer] TRKING# [id number] NCM: NICHOLAS Martin P- [phone] F- [phone]....REVIEW/CLINICAL
--- NOTE | 2019-02-08 11:05 | Infectious Diseases Prog Note ---
Assessment/Plan Assessment/Plan antibiotics : meropenem A 1. pneumonia 2. renal failure 3. respiratory failure 4. leucocytosis 5. rectal VRE colonization P 1. continue meropenem 2. sputum culture 3. start iv vancomycin 4. will follow up cultures Subjective ROS Limited/Unobtainable: Yes Allergies: Coded Allergies: No Known Allergies (Unverified , 09/25/17) Objective Vital Signs Last 24 Hour Vital Signs Date Time Temp Pulse Resp B/P (MAP) Pulse Ox O2 Delivery O2 Flow Rate FiO2 02/08/19 10:30 26 Non-Rebreather 40 02/08/19 08:58 96 26 40 02/08/19 08:00 40 02/08/19 08:00 Mechanical Ventilator 02/08/19 07:16 101 26 100 Mechanical Ventilator 40 02/08/19 07:06 103 28 40 02/08/19 07:06 103 26 100 Mechanical Ventilator 40 02/08/19 06:00 94 26 164/63 (96) 100 02/08/19 05:01 95 26 40 02/08/19 05:00 94 26 161/62 (95) 100 02/08/19 04:00 40 02/08/19 04:00 Mechanical Ventilator 02/08/19 04:00 99.1 101 26 154/59 (90) 98 02/08/19 04:00 98 02/08/19 03:02 101 26 100 Mechanical Ventilator 40 02/08/19 03:00 99 25 156/59 (91) 100 02/08/19 02:55 98 26 100 Mechanical Ventilator 40 02/08/19 02:48 99 26 40 02/08/19 02:00 100 25 159/58 (91) 98 02/08/19 01:13 103 26 40 02/08/19 01:00 103 26 154/56 (88) 98 02/08/19 00:00 99.3 107 23 135/85 (102) 89 02/08/19 00:00 Mechanical Ventilator 02/08/19 00:00 40 02/08/19 00:00 104 02/07/19 23:12 110 26 100 Mechanical Ventilator 40 02/07/19 23:03 98 27 40 02/07/19 23:00 96 25 162/60 (94) 97 02/07/19 23:00 96 26 97 Mechanical Ventilator 40 02/07/19 22:00 95 26 154/58 (90) 99 02/07/19 21:07 97 26 40 02/07/19 21:00 95 26 159/63 (95) 98 02/07/19 20:00 40 02/07/19 20:00 94 02/07/19 20:00 98.2 94 24 155/58 (90) 99 02/07/19 20:00 Mechanical Ventilator 02/07/19 19:00 93 26 155/62 (93) 100 02/07/19 18:50 90 26 100 Mechanical Ventilator 40 02/07/19 18:43 92 26 40 02/07/19 18:40 92 26 100 Mechanical Ventilator 40 02/07/19 18:00 93 26 155/62 (93) 100 02/07/19 17:00 94 25 164/64 (97) 98 02/07/19 16:58 95 26 40 02/07/19 16:00 Mechanical Ventilator 02/07/19 16:00 40 02/07/19 16:00 94 02/07/19 16:00 97.9 94 25 158/64 (95) 99 02/07/19 15:30 93 26 156/63 (94) 98 02/07/19 15:15 94 23 163/67 (99) 100 02/07/19 15:10 97 26 40 02/07/19 15:08 96 26 100 Mechanical Ventilator 40 02/07/19 15:02 94 26 100 Mechanical Ventilator 40 02/07/19 15:00 93 26 163/69 (100) 100 02/07/19 14:45 93 26 163/69 (100) 100 02/07/19 14:30 91 26 158/65 (96) 100 02/07/19 14:15 91 26 158/65 (96) 100 02/07/19 14:00 92 26 156/64 (94) 99 02/07/19 14:00 26 Mechanical Ventilator 40 02/07/19 13:45 92 26 156/64 (94) 99 02/07/19 13:30 93 26 157/62 (93) 99 02/07/19 13:15 93 26 157/62 (93) 99 02/07/19 13:00 96 26 155/63 (93) 99 02/07/19 13:00 26 Mechanical Ventilator 40 02/07/19 12:52 95 26 40 02/07/19 12:45 95 26 156/63 (94) 99 02/07/19 12:30 101 24 150/67 (94) 98 02/07/19 12:15 93 26 164/70 (101) 100 02/07/19 12:00 95 02/07/19 12:00 98.9 93 26 164/70 (101) 100 02/07/19 12:00 40 02/07/19 12:00 26 40 02/07/19 12:00 Mechanical Ventilator 02/07/19 11:45 87 26 147/62 (90) 100 02/07/19 11:30 87 26 147/62 (90) 100 02/07/19 11:15 87 26 148/62 (90) 99 02/07/19 11:00 87 26 148/62 (90) 99 02/07/19 11:00 26 Mechanical Ventilator 40 Height (Feet): 5 Height (Inches): 3.00 Weight (Pounds): 135 HEENT: other - intubated Respiratory/Chest: lungs clear Cardiovascular: normal rate, regular rhythm, no gallop/murmur Abdomen: soft, non tender, other - SPC Extremities: no edema, other - stumps clean, right and left groin catheter Microbiology Date/Time Source Procedure Growth Status 02/06/19 11:55 Blood Blood Culture - Preliminary NO GROWTH AFTER 24 HOURS Resulted 02/05/19 23:10 Blood Blood Culture - Preliminary NO GROWTH AFTER 48 HOURS Resulted 02/05/19 22:55 Blood Blood Culture - Preliminary NO GROWTH AFTER 48 HOURS Resulted 02/06/19 03:00 Rectum - Final NO CARBAPENEM-RESISTANT ENTEROBACTERI... Complete 02/06/19 03:00 Rectum VRE Culture - Final Enterococcus Faecium - Vre Complete Laboratory Tests Test 02/08/19 03:50 White Blood Count 20.4 K/UL (4.8-10.8) H Red Blood Count 3.37 M/UL (4.70-6.10) L Hemoglobin 9.9 G/DL (14.2-18.0) L Hematocrit 29.3 % (42.0-52.0) L Mean Corpuscular Volume 87 FL (80-99) Mean Corpuscular Hemoglobin 29.3 PG (27.0-31.0) Mean Corpuscular Hemoglobin Concent 33.7 G/DL (32.0-36.0) Red Cell Distribution Width 14.0 % (11.6-14.8) Platelet Count 144 K/UL (150-450) L Mean Platelet Volume 9.0 FL (6.5-10.1) Neutrophils (%) (Auto) % (45.0-75.0) Lymphocytes (%) (Auto) % (20.0-45.0) Monocytes (%) (Auto) % (1.0-10.0) Eosinophils (%) (Auto) % (0.0-3.0) Basophils (%) (Auto) % (0.0-2.0) Differential Total Cells Counted 100 Neutrophils % (Manual) 96 % (45-75) H Lymphocytes % (Manual) 2 % (20-45) L Monocytes % (Manual) 2 % (1-10) Eosinophils % (Manual) 0 % (0-3) Basophils % (Manual) 0 % (0-2) Band Neutrophils 0 % (0-8) Nucleated Red Blood Cells 3 /100 WBC Platelet Estimate Decreased L Platelet Morphology Normal Hypochromasia 2+ Anisocytosis 1+ Prothrombin Time 11.0 SEC (9.30-11.50) Prothromb Time International Ratio 1.0 (0.9-1.1) Sodium Level 145 MMOL/L (136-145) Potassium Level 2.3 MMOL/L (3.5-5.1) *L Chloride Level 106 MMOL/L (98-107) Carbon Dioxide Level 20 MMOL/L (21-32) L Anion Gap 19 mmol/L (5-15) H Blood Urea Nitrogen 66 mg/dL (7-18) H Creatinine 6.5 MG/DL (0.55-1.30) H Estimat Glomerular Filtration Rate 8.6 mL/min (>60) Glucose Level 389 MG/DL (74-106) H Hemoglobin A1c 6.3 % (4.3-6.0) H Calcium Level 7.3 MG/DL (8.5-10.1) L Iron Level 174 ug/dL (50-175) Total Iron Binding Capacity 220 ug/dL (250-450) L Percent Iron Saturation 79 % (15-50) H Unsaturated Iron Binding 46 ug/dL (112-346) L Total Bilirubin 0.7 MG/DL (0.2-1.0) Aspartate Amino Transf (AST/SGOT) 48 U/L (15-37) H Alanine Aminotransferase (ALT/SGPT) 110 U/L (12-78) H Alkaline Phosphatase 98 U/L (46-116) Troponin I 0.275 ng/mL (0.000-0.056) Total Protein 6.1 G/DL (6.4-8.2) L Albumin 2.0 G/DL (3.4-5.0) L Globulin 4.1 g/dL Albumin/Globulin Ratio 0.5 (1.0-2.7) L Amylase Level 41 U/L (25-115) Lipase 201 U/L (73-393) Folate 12.6 NG/ML (8.6-58.9) Hepatitis A IgM Antibody Pending Hepatitis B Surface Antigen Pending Hepatitis B Core IgM Antibody Pending Hepatitis C Antibody Pending Current Medications Medications (Trade) Dose Ordered Sig/Joe Route PRN Reason Start Time Stop Time Status Last Admin Dose Admin Acetaminophen (Tylenol) 650 mg Q4H PRN ORAL Mild Pain/Temp > 100.5 02/06/19 05:45 03/08/19 05:44 Al Hydroxide/Mg Hydroxide (Mylanta) 30 ml PRN ORAL 02/06/19 05:45 03/08/19 05:44 Albuterol/ Ipratropium (Albuterol/ Ipratropium) 3 ml Q4HRT HHN 02/06/19 15:00 02/11/19 14:59 02/08/19 07:06 Chlorhexidine Gluconate (Falguni-Hex 2%) 1 applic DAILY@2000 TOPIC 02/06/19 20:00 03/08/19 19:59 02/07/19 20:47 Dextrose (Dextrose 50%) 25 ml Q30M PRN IV Hypoglycemia 02/06/19 11:30 03/08/19 11:29 Dextrose (Dextrose 50%) 50 ml Q30M PRN IV Hypoglycemia 02/06/19 11:30 03/08/19 11:29 Epoetin Mayo (Epoetin Mayo(ESRD on dialysis)) 10,000 unit MON-MON-MON SUBQ 02/06/19 21:00 03/08/19 20:59 02/06/19 21:02 Fentanyl Citrate 1000 mcg/Sodium Chloride 100 ml @ 0 mls/hr Q24H IV 02/06/19 10:30 02/13/19 10:29 02/07/19 08:28 Heparin Sodium (Porcine) (Heparin 5000 units/ml) 5,000 units EVERY 12 HOURS SUBQ 02/06/19 09:00 03/08/19 08:59 02/08/19 09:11 Hydrocortisone (Solu-CORTEF) 60 mg EVERY 12 HOURS IV 02/06/19 11:30 03/08/19 11:29 02/08/19 09:10 Insulin Aspart (NovoLOG) Q6HR SUBQ 02/06/19 12:00 03/08/19 11:59 02/08/19 06:15 Iron Sucrose 100 mg/Sodium Chloride 60 ml @ 240 mls/hr BEDTIME IV 02/06/19 21:00 02/10/19 21:14 02/07/19 20:49 Lansoprazole (Prevacid) 30 mg DAILY NG 02/06/19 09:00 03/08/19 08:59 02/08/19 09:11 Meropenem 500 mg/ Sodium Chloride 55 ml @ 110 mls/hr DAILY IVPB 02/06/19 13:00 02/11/19 12:59 02/08/19 09:10 Sodium Bicarbonate 100 ml/Dextrose 1,100 ml @ 60 mls/hr [id number] IV 02/06/19 14:30 03/08/19 14:29 02/08/19 02:14 Alicia Greene MD Feb 08, 2019 11:05
--- NOTE | 2019-02-08 11:26 | NUR ---
RD ASSESSMENT & RECOMMENDATIONS SEE CARE ACTIVITY FOR COMPLETE ASSESSMENT DAILY ESTIMATED NEEDS: Needs based on HD, Critical Care/ 57kg 22-30 kcals/kg 3393-1986 total kcals 1.2-2 g protein/kg 68-114 g total protein 20-22 mL/kg 0741-0907 total fluid mLs NUTRITION DIAGNOSIS: * Swallowing difficulty R/T respiratory status as evidenced by s/p code blue, orally intubated and sedated in ICU, on OGT feeds (UPDATED) * Altered nutrition related lab values R/T renal dysfunction, DM as evidenced by elev creat(6.5) now w/ an order for HD, elev BNP (>81703), elev BGs(300's). CURRENT TF:Nepro @35ml/hr x24 hrs + PS x2 (PO DIET RECOMMENDATIONS: WREATH INSPECTOR eval once extubated) ENTERAL NUTRITION RECOMMENDATIONS: Nepro @ 35ml/hr x 24 hrs to provide 840ml, 1512kcal, 68g prot, 640ml free water * As medically appropriate, initiate Nepro @ 15ml/hr x 6 hrs, advance 10ml q 4-6 hrs as tolerated to goal. * HOB over 30 degrees/ water flush per MD If Propofol cont to run @ 18.36ml/hr, rec Nepro at goal rate of 25ml/hr x 24 hrs + Prosource 1pkt BID (w/ Propofol, pt will receive 100% est kcal, prot needs -> 1080kcal + 485kcal from propofol, 70g prot) ADDITIONAL RECOMMENDATIONS: * Calibrated bedscale wt for accurate CBW * Monitor for continuity of HD, monitor renal fxn and lytes * Monitor BGs closely w/ solumedrol Currently BG 300's-> consider long acting insulin coverage May lower TF to-> 30ml/hr x24hrs w/ Prosource increased to TID for improved glycemic control
--- NOTE | 2019-02-08 11:54 | NUR ---
NURSE NOTES: Turned and repositioned, kept dry and clean. Tolerating GTF well. Received orders from Dr. Chambers to change PEEP to 8.
--- NOTE | 2019-02-08 12:29 | Cardiology Report ---
APPROVED REPORT EXAM: Two-dimensional and M-mode echocardiogram with Doppler and color Doppler. INDICATION S.O.B M-Mode DIMENSIONS IVSd1.0 (0.7-1.1cm)Left Atrium (MM)2.5 (1.6-4.0cm) LVDd6.1 (3.5-5.6cm)Aortic Root3.2 (2.0-3.7cm) PWd0.9 (0.7-1.1cm)Aortic Cusp Exc.1.8 (1.5-2.0cm) IVSs0.9 cm LVDs4.8 (2.5-4.0cm) PWs1.2 cm Mild left ventriuclar enlargement. Global left ventricular hypokinesis . Left ventricular ejection fraction estimated to be 40-45%. Mild left ventricular hypertrophy. No evidence of pericardial effusion. All other cardiac chamber sizes are within normal limits. Aortic valve calcification with reduced cusp excursion . Mildly thickened mitral valve leaflets with normal excursion. Mild mitral annulus and aortic root calcification. Pulmonic valve not well visualized. IVC at size 1.8 cm without physiologic collapse,suggestive of increased RA pressure. A color flow and spectral Doppler study was performed and revealed: No aortic insufficiency . Mitral inflow velocities indicates possible pseudo normalization pattern implying moderately elevated left atrial pressure (Grade II ). Mild mitral regurgitation. Mild to moderate tricuspid regurgitation. Tricuspid systolic velocities suggests peak right ventricular systolic pressure of 57mmHg,consistent with moderate pulmonary HTN .
--- NOTE | 2019-02-08 12:35 | NUR ---
NURSE NOTES: Blood sugar critically high, 14 units given per sliding scale and notified Dr. Noriega. Received orders to d/c manny.
[2019-02-08] MEDS ORDERED: Vancomycin 1.25gm Premix IVPB SCH (13:00)
--- NOTE | 2019-02-08 13:00 | NUR ---
NURSE NOTES: Patient accidently pulled out OGT. Reinserted, verified placement by auscultation. Ana NICHOLAS witnessed. KUB stat ordered.
--- NOTE | 2019-02-08 15:00 | NUR ---
NURSE NOTES: Patient had greenish brown pasty BM. Cleaned patient, changed and kept clean. Oral care done.
--- NOTE | 2019-02-08 15:38 | Surgery Progress Note ---
Surgery Progress Note Subjective Procedure Performed right femoral temporary hemodialysis catheter insertion Additional Comments Leukocytosis Awake alert Not complaining any complaints No nausea or vomiting Still on support Hyperglycemia Objective Last 24 Hour Vital Signs Date Time Temp Pulse Resp B/P (MAP) Pulse Ox O2 Delivery O2 Flow Rate FiO2 02/08/19 14:58 103 24 98 Mechanical Ventilator 40 02/08/19 14:44 104 29 40 02/08/19 14:44 103 26 100 Mechanical Ventilator 40 02/08/19 13:21 108 30 40 02/08/19 11:19 103 27 100 Mechanical Ventilator 40 02/08/19 11:03 101 26 91 Mechanical Ventilator 40 02/08/19 11:03 101 29 40 02/08/19 11:00 98 26 154/68 (96) 100 02/08/19 10:30 26 Non-Rebreather 40 02/08/19 10:00 94 26 156/65 (95) 100 02/08/19 09:00 98 26 165/66 (99) 100 02/08/19 08:58 96 26 40 02/08/19 08:00 40 02/08/19 08:00 Mechanical Ventilator 02/08/19 08:00 96 26 163/59 (93) 100 02/08/19 07:16 101 26 100 Mechanical Ventilator 40 02/08/19 07:06 103 28 40 02/08/19 07:06 103 26 100 Mechanical Ventilator 40 02/08/19 07:00 99.0 101 26 158/83 (108) 100 02/08/19 06:00 94 26 164/63 (96) 100 02/08/19 05:01 95 26 40 02/08/19 05:00 94 26 161/62 (95) 100 02/08/19 04:00 40 02/08/19 04:00 Mechanical Ventilator 02/08/19 04:00 99.1 101 26 154/59 (90) 98 02/08/19 04:00 98 02/08/19 03:02 101 26 100 Mechanical Ventilator 40 02/08/19 03:00 99 25 156/59 (91) 100 02/08/19 02:55 98 26 100 Mechanical Ventilator 40 02/08/19 02:48 99 26 40 02/08/19 02:00 100 25 159/58 (91) 98 02/08/19 01:13 103 26 40 02/08/19 01:00 103 26 154/56 (88) 98 02/08/19 00:00 99.3 107 23 135/85 (102) 89 02/08/19 00:00 Mechanical Ventilator 02/08/19 00:00 40 02/08/19 00:00 104 02/07/19 23:12 110 26 100 Mechanical Ventilator 40 02/07/19 23:03 98 27 40 02/07/19 23:00 96 25 162/60 (94) 97 02/07/19 23:00 96 26 97 Mechanical Ventilator 40 02/07/19 22:00 95 26 154/58 (90) 99 02/07/19 21:07 97 26 40 02/07/19 21:00 95 26 159/63 (95) 98 02/07/19 20:00 40 02/07/19 20:00 94 02/07/19 20:00 98.2 94 24 155/58 (90) 99 02/07/19 20:00 Mechanical Ventilator 02/07/19 19:00 93 26 155/62 (93) 100 02/07/19 18:50 90 26 100 Mechanical Ventilator 40 02/07/19 18:43 92 26 40 02/07/19 18:40 92 26 100 Mechanical Ventilator 40 02/07/19 18:00 93 26 155/62 (93) 100 02/07/19 17:00 94 25 164/64 (97) 98 02/07/19 16:58 95 26 40 02/07/19 16:00 Mechanical Ventilator 02/07/19 16:00 40 02/07/19 16:00 94 02/07/19 16:00 97.9 94 25 158/64 (95) 99 I&O Intake and Output 02/07/19 02/08/19 19:00 07:00 Intake Total 1067 ml 1085 ml Output Total 1560 ml 850 ml Balance -493 ml 235 ml Intake Oral 0 ml Free Water 100 ml 120 ml IV Total 907 ml 660 ml Tube Feeding 60 ml 305 ml Output Urine Total 500 ml 850 ml Gastric Drainage Total 60 ml Hemodialysis UF 1000 ml Dressing: saturated Wound: clean Cardiovascular: RSR Respiratory: clear, decreased breath sounds Abdomen: soft, present bowel sounds, non-distended Extremities: no cyanosis Laboratory Tests Test 02/08/19 03:50 White Blood Count 20.4 K/UL (4.8-10.8) H Red Blood Count 3.37 M/UL (4.70-6.10) L Hemoglobin 9.9 G/DL (14.2-18.0) L Hematocrit 29.3 % (42.0-52.0) L Mean Corpuscular Volume 87 FL (80-99) Mean Corpuscular Hemoglobin 29.3 PG (27.0-31.0) Mean Corpuscular Hemoglobin Concent 33.7 G/DL (32.0-36.0) Red Cell Distribution Width 14.0 % (11.6-14.8) Platelet Count 144 K/UL (150-450) L Mean Platelet Volume 9.0 FL (6.5-10.1) Neutrophils (%) (Auto) % (45.0-75.0) Lymphocytes (%) (Auto) % (20.0-45.0) Monocytes (%) (Auto) % (1.0-10.0) Eosinophils (%) (Auto) % (0.0-3.0) Basophils (%) (Auto) % (0.0-2.0) Differential Total Cells Counted 100 Neutrophils % (Manual) 96 % (45-75) H Lymphocytes % (Manual) 2 % (20-45) L Monocytes % (Manual) 2 % (1-10) Eosinophils % (Manual) 0 % (0-3) Basophils % (Manual) 0 % (0-2) Band Neutrophils 0 % (0-8) Nucleated Red Blood Cells 3 /100 WBC Platelet Estimate Decreased L Platelet Morphology Normal Hypochromasia 2+ Anisocytosis 1+ Prothrombin Time 11.0 SEC (9.30-11.50) Prothromb Time International Ratio 1.0 (0.9-1.1) Sodium Level 145 MMOL/L (136-145) Potassium Level 2.3 MMOL/L (3.5-5.1) *L Chloride Level 106 MMOL/L (98-107) Carbon Dioxide Level 20 MMOL/L (21-32) L Anion Gap 19 mmol/L (5-15) H Blood Urea Nitrogen 66 mg/dL (7-18) H Creatinine 6.5 MG/DL (0.55-1.30) H Estimat Glomerular Filtration Rate 8.6 mL/min (>60) Glucose Level 389 MG/DL (74-106) H Hemoglobin A1c 6.3 % (4.3-6.0) H Calcium Level 7.3 MG/DL (8.5-10.1) L Iron Level 174 ug/dL (50-175) Total Iron Binding Capacity 220 ug/dL (250-450) L Percent Iron Saturation 79 % (15-50) H Unsaturated Iron Binding 46 ug/dL (112-346) L Total Bilirubin 0.7 MG/DL (0.2-1.0) Aspartate Amino Transf (AST/SGOT) 48 U/L (15-37) H Alanine Aminotransferase (ALT/SGPT) 110 U/L (12-78) H Alkaline Phosphatase 98 U/L (46-116) Troponin I 0.275 ng/mL (0.000-0.056) Total Protein 6.1 G/DL (6.4-8.2) L Albumin 2.0 G/DL (3.4-5.0) L Globulin 4.1 g/dL Albumin/Globulin Ratio 0.5 (1.0-2.7) L Amylase Level 41 U/L (25-115) Lipase 201 U/L (73-393) Folate 12.6 NG/ML (8.6-58.9) Hepatitis A IgM Antibody Pending Hepatitis B Surface Antigen Pending Hepatitis B Core IgM Antibody Pending Hepatitis C Antibody Pending Plan Problems: (1) ARDS (adult respiratory distress syndrome) (2) Anemia (3) Elevated troponin (4) MARY (acute kidney injury) (5) COPD with exacerbation (6) Abnormal LFTs Assessment & Plan: Abnormalities likely from shock liver. Gallbladder wall thickening nonspecific. Sonographic Rojas's is equivocal due to patient's condition. Trace ascites Bilateral pleural effusions. Suspected medical renal disease. Suspected nonobstructive stone in the right kidney. Trend labs (7) COPD (chronic obstructive pulmonary disease) (8) Respiratory distress (9) Pneumonia (10) HTN (hypertension) (11) Epileptic seizure, generalized (12) Shock liver Assessment & Plan: Shock liver likely from hypotension and cardiovascular arrest. Resuscitation with IV fluids ICU care and management Trend labs We will follow with recommendations (13) Suprapubic catheter Hari Batres Feb 08, 2019 15:38
--- NOTE | 2019-02-08 16:00 | Hematology/Onc Progress Note ---
Assessment/Plan Assessment/Plan Assessment and Recs: # Anemia of chronic disease due to underlying chronic medical issues, multifactorial --> Anemia workup has been ordered, rule out gi bleed --> No evidence of hemolysis is noted, peripheral smear has been reviewed. --> Hgb goal >7. Transfuse prn. --> Epogen and iron both started given ckd, awaiting ferritin --> Medications have been reviewed --> low threshold for gi evaluation in case has occult + # Leukocytosis/elevated white blood cell count, unspecified likely related to underlying stress reaction, pna, ARDS --> have reviewed peripheral smear and bandemia/neutrophilia noted --> continue antibiotics if they have been started by ID team --> 23-->17-->20k # Thrombocytopenia - potential causes multifactorial, evaluate liver and viral etiologies to begin, also could be related to underlying medications patient has received. may be due to Hep C++ (need to confirm) --> Hep panel and HIV is negative --> US abd to evaluate for cirrhosis with trace ascites --> Peripheral smear ordered to evaluate for blasts /schistocytes --> abx and other meds have been reviewed --> ok for ppx if plt >50k w/ either heparin or lovenox # Respiratory distress with ards --> has been intubated, on a vent --> as per pulm recs -> vent adjustment per pulm # Chronic Obstructive Pulmonary Disease with exacerbation --> breathing treatments on prn basis # Pneumonia --> on abx per id # ESRD - STARTED HD via femoral Junior. ++ PermaCath + AVF. --> hd per renal # Elevated troponin --> per cards, r/o acs # Bilateral amputations # GERD # ETOH abuse The timing of this note does not necessarily reflect the time of the patient was seen. Greatly appreciate consultation! Subjective HEENT: Denies: no symptoms, eye pain, blurred vision, tearing, double vision, ear pain, ear discharge, nose pain, nose congestion, throat pain, throat swelling, mouth pain, mouth swelling, other Cardiovascular: Denies: no symptoms, chest pain, edema, irregular heart rate, lightheadedness, palpitations, syncope, other Respiratory: Denies: no symptoms, cough, shortness of breath, SOB with excertion, SOB at rest, sputum, wheezing, other Gastrointestinal/Abdominal: Denies: no symptoms, abdomen distended, abdominal pain, black stools, tarry stools, blood in stool, constipated, diarrhea, difficulty swallowing, nausea, poor appetite, poor fluid intake, rectal bleeding , vomiting, other Genitourinary: Denies: no symptoms, burning, discharge, frequency, flank pain, hematuria, incontinence, pain, urgency, other Neurologic/Psychiatric: Denies: no symptoms, anxiety, depressed, emotional problems, headache, numbness, paresthesia, pre-existing deficit, seizure, tingling, tremors, weakness, other Endocrine: Denies: no symptoms, excessive sweating, flushing, intolerance to cold, intolerance to heat, increased hunger, increased thirst, increased urine, unexplained weight gain, unexplained weight loss, other Allergies: Coded Allergies: No Known Allergies (Unverified , 09/25/17) Subjective 02/08: is on jose and vanc, broad spectrum abx, no f/c, vent adjusted per pulm Objective Objective Current Medications Medications (Trade) Dose Ordered Sig/Joe Route PRN Reason Start Time Stop Time Status Last Admin Dose Admin Acetaminophen (Tylenol) 650 mg Q4H PRN ORAL Mild Pain/Temp > 100.5 02/06/19 05:45 03/08/19 05:44 Al Hydroxide/Mg Hydroxide (Mylanta) 30 ml PRN ORAL 02/06/19 05:45 03/08/19 05:44 Albuterol/ Ipratropium (Albuterol/ Ipratropium) 3 ml Q4HRT HHN 02/06/19 15:00 02/11/19 14:59 02/08/19 14:44 Chlorhexidine Gluconate (Falguni-Hex 2%) 1 applic DAILY@1999 TOPIC 02/06/19 20:00 03/08/19 19:59 02/07/19 20:47 Dextrose (Dextrose 50%) 25 ml Q30M PRN IV Hypoglycemia 02/06/19 11:30 03/08/19 11:29 Dextrose (Dextrose 50%) 50 ml Q30M PRN IV Hypoglycemia 02/06/19 11:30 03/08/19 11:29 Epoetin Mayo (Epoetin Mayo(ESRD on dialysis)) 10,000 unit MON-MON-MON SUBQ 02/06/19 21:00 03/08/19 20:59 02/06/19 21:02 Fentanyl Citrate 1000 mcg/Sodium Chloride 100 ml @ 0 mls/hr Q24H IV 02/06/19 10:30 02/13/19 10:29 02/07/19 08:28 Heparin Sodium (Porcine) (Heparin 5000 units/ml) 5,000 units EVERY 12 HOURS SUBQ 02/06/19 09:00 03/08/19 08:59 02/08/19 09:11 Hydrocortisone (Solu-CORTEF) 60 mg EVERY 12 HOURS IV 02/06/19 11:30 03/08/19 11:29 02/08/19 09:10 Insulin Aspart (NovoLOG) Q6HR SUBQ 02/06/19 12:00 03/08/19 11:59 02/08/19 14:00 Iron Sucrose 100 mg/Sodium Chloride 60 ml @ 240 mls/hr BEDTIME IV 02/06/19 21:00 02/10/19 21:14 02/07/19 20:49 Lansoprazole (Prevacid) 30 mg DAILY NG 02/06/19 09:00 03/08/19 08:59 02/08/19 09:11 Meropenem 500 mg/ Sodium Chloride 55 ml @ 110 mls/hr DAILY IVPB 02/06/19 13:00 02/11/19 12:59 02/08/19 09:10 Sodium Bicarbonate 100 ml/Dextrose 1,100 ml @ 60 mls/hr [id number] IV 02/06/19 14:30 03/08/19 14:29 02/08/19 02:14 Vancomycin HCl (Vanco rx to dose) 1 ea DAILY PRN MISC Per rx protocol 02/08/19 11:15 03/10/19 11:14 Last 24 Hour Vital Signs Date Time Temp Pulse Resp B/P (MAP) Pulse Ox O2 Delivery O2 Flow Rate FiO2 02/08/19 14:58 103 24 98 Mechanical Ventilator 40 02/08/19 14:44 104 29 40 02/08/19 14:44 103 26 100 Mechanical Ventilator 40 02/08/19 13:21 108 30 40 02/08/19 11:19 103 27 100 Mechanical Ventilator 40 02/08/19 11:03 101 26 91 Mechanical Ventilator 40 02/08/19 11:03 101 29 40 02/08/19 11:00 98 26 154/68 (96) 100 8/2/19 10:30 26 Non-Rebreather 40 02/08/19 10:00 94 26 156/65 (95) 100 02/08/19 09:00 98 26 165/66 (99) 100 02/08/19 08:58 96 26 40 02/08/19 08:00 40 02/08/19 08:00 Mechanical Ventilator 02/08/19 08:00 96 26 163/59 (93) 100 02/08/19 07:16 101 26 100 Mechanical Ventilator 40 02/08/19 07:06 103 28 40 02/08/19 07:06 103 26 100 Mechanical Ventilator 40 02/08/19 07:00 99.0 101 26 158/83 (108) 100 02/08/19 06:00 94 26 164/63 (96) 100 02/08/19 05:01 95 26 40 02/08/19 05:00 94 26 161/62 (95) 100 02/08/19 04:00 40 02/08/19 04:00 Mechanical Ventilator 02/08/19 04:00 99.1 101 26 154/59 (90) 98 02/08/19 04:00 98 02/08/19 03:02 101 26 100 Mechanical Ventilator 40 02/08/19 03:00 99 25 156/59 (91) 100 02/08/19 02:55 98 26 100 Mechanical Ventilator 40 02/08/19 02:48 99 26 40 02/08/19 02:00 100 25 159/58 (91) 98 02/08/19 01:13 103 26 40 02/08/19 01:00 103 26 154/56 (88) 98 02/08/19 00:00 99.3 107 23 135/85 (102) 89 02/08/19 00:00 Mechanical Ventilator 02/08/19 00:00 40 02/08/19 00:00 104 02/07/19 23:12 110 26 100 Mechanical Ventilator 40 02/07/19 23:03 98 27 40 02/07/19 23:00 96 25 162/60 (94) 97 02/07/19 23:00 96 26 97 Mechanical Ventilator 40 02/07/19 22:00 95 26 154/58 (90) 99 02/07/19 21:07 97 26 40 02/07/19 21:00 95 26 159/63 (95) 98 02/07/19 20:00 40 02/07/19 20:00 94 02/07/19 20:00 98.2 94 24 155/58 (90) 99 02/07/19 20:00 Mechanical Ventilator 02/07/19 19:00 93 26 155/62 (93) 100 02/07/19 18:50 90 26 100 Mechanical Ventilator 40 02/07/19 18:43 92 26 40 02/07/19 18:40 92 26 100 Mechanical Ventilator 40 02/07/19 18:00 93 26 155/62 (93) 100 02/07/19 17:00 94 25 164/64 (97) 98 02/07/19 16:58 95 26 40 02/07/19 16:00 Mechanical Ventilator 02/07/19 16:00 40 02/07/19 16:00 94 02/07/19 16:00 97.9 94 25 158/64 (95) 99 02/07/19 15:30 93 26 156/63 (94) 98 02/07/19 15:15 94 23 163/67 (99) 100 02/07/19 15:10 97 26 40 02/07/19 15:08 96 26 100 Mechanical Ventilator 40 02/07/19 15:02 94 26 100 Mechanical Ventilator 40 02/07/19 15:00 93 26 163/69 (100) 100 02/07/19 14:45 93 26 163/69 (100) 100 02/07/19 14:30 91 26 158/65 (96) 100 02/07/19 14:15 91 26 158/65 (96) 100 02/07/19 14:00 92 26 156/64 (94) 99 02/07/19 14:00 26 Mechanical Ventilator 40 02/07/19 13:45 92 26 156/64 (94) 99 02/07/19 13:30 93 26 157/62 (93) 99 02/07/19 13:15 93 26 157/62 (93) 99 02/07/19 13:00 96 26 155/63 (93) 99 02/07/19 13:00 26 Mechanical Ventilator 40 02/07/19 12:52 95 26 40 02/07/19 12:45 95 26 156/63 (94) 99 02/07/19 12:30 101 24 150/67 (94) 98 02/07/19 12:15 93 26 164/70 (101) 100 02/07/19 12:00 95 02/07/19 12:00 98.9 93 26 164/70 (101) 100 02/07/19 12:00 40 02/07/19 12:00 26 40 02/07/19 12:00 Mechanical Ventilator 02/07/19 11:45 87 26 147/62 (90) 100 02/07/19 11:30 87 26 147/62 (90) 100 02/07/19 11:15 87 26 148/62 (90) 99 02/07/19 11:00 87 26 148/62 (90) 99 02/07/19 11:00 26 Mechanical Ventilator 40 02/07/19 10:50 81 26 100 Mechanical Ventilator 40 02/07/19 10:45 83 22 148/62 (90) 100 02/07/19 10:44 81 26 40 02/07/19 10:44 86 26 99 Mechanical Ventilator 40 02/07/19 10:30 79 26 153/61 (91) 100 02/07/19 10:00 26 Mechanical Ventilator 40 02/07/19 10:00 78 26 143/62 (89) 100 02/07/19 09:45 78 26 143/62 (89) 100 02/07/19 09:30 79 26 143/60 (87) 99 02/07/19 09:15 79 26 141/60 (87) 99 02/07/19 09:12 79 26 40 02/07/19 09:00 80 26 141/60 (87) 99 02/07/19 09:00 26 Mechanical Ventilator 40 02/07/19 08:45 85 24 141/61 (87) 96 02/07/19 08:30 80 26 141/61 (87) 99 02/07/19 08:28 26 Mechanical Ventilator 40 02/07/19 08:27 26 Mechanical Ventilator 40 02/07/19 08:00 26 Mechanical Ventilator 40 02/07/19 08:00 Mechanical Ventilator 02/07/19 08:00 40 02/07/19 08:00 81 26 141/58 (85) 99 02/07/19 08:00 86 02/07/19 07:30 81 23 140/57 (84) 99 02/07/19 07:10 78 26 100 Mechanical Ventilator 40 02/07/19 07:03 80 26 40 02/07/19 07:02 82 26 95 Mechanical Ventilator 40 02/07/19 07:00 26 Mechanical Ventilator 40 02/07/19 07:00 79 26 140/57 (84) 99 02/07/19 06:00 80 26 130/55 (80) 98 02/07/19 06:00 26 Mechanical Ventilator 40 02/07/19 05:30 79 26 140/56 (84) 100 02/07/19 05:00 79 26 140/57 (84) 100 02/07/19 05:00 26 Mechanical Ventilator 40 02/07/19 05:00 79 26 40 50 02/07/19 04:30 79 26 139/56 (83) 100 02/07/19 04:00 98.7 79 26 133/56 (81) 02/07/19 04:00 Mechanical Ventilator 02/07/19 04:00 26 Mechanical Ventilator 50 02/07/19 04:00 50 02/07/19 04:00 78 02/07/19 03:30 79 26 141/56 (84) 100 02/07/19 03:19 78 26 100 Mechanical Ventilator 40 02/07/19 03:07 77 26 100 Mechanical Ventilator 40 02/07/19 03:06 77 26 40 50 02/07/19 03:00 77 26 134/53 (80) 100 02/07/19 02:58 26 Mechanical Ventilator 50 02/07/19 02:30 78 26 133/52 (79) 100 02/07/19 02:00 26 Mechanical Ventilator 50 02/07/19 02:00 78 26 133/53 (79) 100 02/07/19 01:30 79 26 131/53 (79) 100 02/07/19 01:00 26 Mechanical Ventilator 50 02/07/19 01:00 81 26 136/53 (80) 100 02/07/19 00:37 82 26 40 50 02/07/19 00:30 82 26 144/58 (86) 100 02/07/19 00:00 76 02/07/19 00:00 24 Mechanical Ventilator 50 02/07/19 00:00 50 02/07/19 00:00 98.8 79 26 143/58 (86) 100 02/07/19 00:00 Mechanical Ventilator 02/06/19 23:36 92 26 100 Mechanical Ventilator 40 02/06/19 23:30 85 22 131/51 (77) 99 02/06/19 23:26 75 26 100 Mechanical Ventilator 40 02/06/19 23:25 75 26 40 50 02/06/19 23:00 76 26 128/53 (78) 100 02/06/19 23:00 22 Mechanical Ventilator 50 02/06/19 22:00 77 26 123/49 (73) 99 02/06/19 21:59 Mechanical Ventilator 40 02/06/19 21:30 77 26 127/48 (74) 99 02/06/19 21:00 77 26 123/53 (76) 99 02/06/19 21:00 26 Mechanical Ventilator 50 02/06/19 20:43 78 26 40 50 02/06/19 20:30 84 25 122/52 (75) 98 02/06/19 20:00 98.8 80 26 126/51 (76) 97 02/06/19 20:00 26 Mechanical Ventilator 50 02/06/19 20:00 78 02/06/19 20:00 50 02/06/19 20:00 Mechanical Ventilator 02/06/19 19:30 85 22 132/116 (121) 98 02/06/19 19:30 102 26 100 Mechanical Ventilator 40 02/06/19 19:15 75 26 117/56 (76) 100 02/06/19 19:13 77 28 98 Mechanical Ventilator 40 02/06/19 19:10 77 28 40 50 02/06/19 19:00 79 24 115/65 (82) 100 02/06/19 19:00 24 Mechanical Ventilator 50 02/06/19 18:45 78 19 120/52 (74) 24 02/06/19 18:30 77 19 114/69 (84) 100 02/06/19 18:15 86 22 114/69 (84) 99 02/06/19 18:00 86 21 126/52 (76) 99 02/06/19 18:00 21 Mechanical Ventilator 50 02/06/19 17:45 77 17 129/58 (81) 100 02/06/19 17:30 82 20 118/103 (108) 100 02/06/19 17:30 20 118/103 Mechanical Ventilator 50 02/06/19 17:15 75 20 124/57 (79) 100 02/06/19 17:15 20 124/57 Mechanical Ventilator 50 02/06/19 17:00 78 18 115/60 (78) 100 02/06/19 17:00 18 Mechanical Ventilator 50 02/06/19 17:00 18 115/60 Mechanical Ventilator 50 02/06/19 16:52 73 30 50 02/06/19 16:45 22 118/51 Mechanical Ventilator 50 02/06/19 16:45 80 22 118/51 (73) 99 02/06/19 16:30 19 120/51 Mechanical Ventilator 50 02/06/19 16:30 73 19 120/51 (74) 100 02/06/19 16:15 19 118/52 Mechanical Ventilator 50 02/06/19 16:15 73 19 118/52 (74) 99 02/06/19 16:00 97.4 76 14 126/72 (90) 100 02/06/19 16:00 18 Mechanical Ventilator 50 02/06/19 16:00 18 123/55 Mechanical Ventilator 100 02/06/19 16:00 72 02/06/19 16:00 Mechanical Ventilator 02/06/19 16:00 50 Intake and Output 02/07/19 02/08/19 19:00 07:00 Intake Total 1067 ml 1085 ml Output Total 1560 ml 850 ml Balance -493 ml 235 ml Intake Oral 0 ml Free Water 100 ml 120 ml IV Total 907 ml 660 ml Tube Feeding 60 ml 305 ml Output Urine Total 500 ml 850 ml Gastric Drainage Total 60 ml Hemodialysis UF 1000 ml Labs Test 02/05/19 23:10 02/05/19 23:50 02/06/19 00:37 02/06/19 01:58 White Blood Count 14.4 K/UL (4.8-10.8) Red Blood Count 2.27 M/UL (4.70-6.10) Hemoglobin 6.4 G/DL (14.2-18.0) Hematocrit 19.4 % (42.0-52.0) Mean Corpuscular Volume 86 FL (80-99) Mean Corpuscular Hemoglobin 28.0 PG (27.0-31.0) Mean Corpuscular Hemoglobin Concent 32.8 G/DL (32.0-36.0) Red Cell Distribution Width 14.2 % (11.6-14.8) Platelet Count 195 K/UL (150-450) Mean Platelet Volume 7.6 FL (6.5-10.1) Neutrophils (%) (Auto) % (45.0-75.0) Lymphocytes (%) (Auto) % (20.0-45.0) Monocytes (%) (Auto) % (1.0-10.0) Eosinophils (%) (Auto) % (0.0-3.0) Basophils (%) (Auto) % (0.0-2.0) Prothrombin Time 11.2 SEC (9.30-11.50) Prothromb Time International Ratio 1.1 (0.9-1.1) Activated Partial Thromboplast Time 32 SEC (23-33) Urine Color Pale yellow Urine Appearance Clear Urine pH 5 (4.5-8.0) Urine Specific [place] 1.015 (1.005-1.035) Urine Protein 4+ (NEGATIVE) Urine Glucose (UA) 3+ (NEGATIVE) Urine Ketones Negative (NEGATIVE) Urine Blood 3+ (NEGATIVE) Urine Nitrite Negative (NEGATIVE) Urine Bilirubin Negative (NEGATIVE) Urine Urobilinogen Normal MG/DL (0.0-1.0) Urine Leukocyte Esterase Negative (NEGATIVE) Urine RBC 5-10 /HPF (0 - 0) Urine WBC 0-2 /HPF (0 - 0) Urine Squamous Epithelial Cells None /LPF (NONE/OCC) Urine Bacteria Few /HPF (NONE) Sodium Level 145 MMOL/L (136-145) Potassium Level 3.9 MMOL/L (3.5-5.1) Chloride Level 110 MMOL/L (98-107) Carbon Dioxide Level 10 MMOL/L (21-32) Anion Gap 25 mmol/L (5-15) Blood Urea Nitrogen 95 mg/dL (7-18) Creatinine 9.3 MG/DL (0.55-1.30) Estimat Glomerular Filtration Rate 5.7 mL/min (>60) Glucose Level 121 MG/DL (74-106) Lactic Acid Level 2.60 mmol/L (0.4-2.0) 1.60 mmol/L (0.66-2.22) Calcium Level 7.6 MG/DL (8.5-10.1) Total Bilirubin 0.7 MG/DL (0.2-1.0) Direct Bilirubin 0.2 MG/DL (0.0-0.3) Aspartate Amino Transf (AST/SGOT) 51 U/L (15-37) Alanine Aminotransferase (ALT/SGPT) 42 U/L (12-78) Alkaline Phosphatase 133 U/L (46-116) Total Creatine Kinase 245 U/L (26-308) Creatine Kinase MB 9.6 NG/ML (0.0-3.6) Creatine Kinase MB Relative Index 3.9 Troponin I 0.238 ng/mL (0.000-0.056) Pro-B-Type Natriuretic Peptide > 31290 pg/mL (0-125) Total Protein 7.5 G/DL (6.4-8.2) Albumin 2.8 G/DL (3.4-5.0) Globulin 4.7 g/dL Albumin/Globulin Ratio 0.6 (1.0-2.7) Lipase 374 U/L (73-393) Venous Blood pH 7.160 Venous Blood Partial Pressure CO2 22.6 Venous Blood Partial Pressure O2 43.9 Venous Blood HCO3 7.9 Venous Blood Total Carbon Dioxide 22.6 Venous Bld O2 Saturation (Measured) 43.9 Venous Blood Oxygen Saturation 65.3 Venous Blood Base Excess -19.1 Methemoglobin 1.0 Sodium (Blood Gas) Triglycerides Level 84 MG/DL (30-150) Test 02/06/19 04:54 02/06/19 06:12 02/06/19 07:45 02/06/19 08:09 Arterial Blood pH 6.899 (7.350-7.450) 7.216 (7.350-7.450) 7.282 (7.350-7.450) Arterial Blood Partial Pressure CO2 43.0 mmHg (35.0-45.0) 28.0 mmHg (35.0-45.0) 24.0 mmHg (35.0-45.0) Arterial Blood Partial Pressure O2 72.5 mmHg (75.0-100.0) 149.0 mmHg (75.0-100.0) 250.6 mmHg (75.0-100.0) Arterial Blood HCO3 8.2 mmol/L (22.0-26.0) 11.1 mmol/L (22.0-26.0) 11.1 mmol/L (22.0-26.0) Arterial Blood Oxygen Saturation 83.9 % (95-100) 98.0 % (95-100) 98.9 % (95-100) Arterial Blood Base Excess -23.3 (-2-2) -15.3 (-2-2) -14.2 (-2-2) Trevor Test Positive Positive Positive White Blood Count 18.3 K/UL (4.8-10.8) Red Blood Count 2.50 M/UL (4.70-6.10) Hemoglobin 7.2 G/DL (14.2-18.0) Hematocrit 22.5 % (42.0-52.0) Mean Corpuscular Volume 90 FL (80-99) Mean Corpuscular Hemoglobin 29.0 PG (27.0-31.0) Mean Corpuscular Hemoglobin Concent 32.1 G/DL (32.0-36.0) Red Cell Distribution Width 14.3 % (11.6-14.8) Platelet Count 153 K/UL (150-450) Mean Platelet Volume 8.1 FL (6.5-10.1) Neutrophils (%) (Auto) % (45.0-75.0) Lymphocytes (%) (Auto) % (20.0-45.0) Monocytes (%) (Auto) % (1.0-10.0) Eosinophils (%) (Auto) % (0.0-3.0) Basophils (%) (Auto) % (0.0-2.0) Differential Total Cells Counted 100 Neutrophils % (Manual) 97 % (45-75) Lymphocytes % (Manual) 1 % (20-45) Monocytes % (Manual) 2 % (1-10) Eosinophils % (Manual) 0 % (0-3) Basophils % (Manual) 0 % (0-2) Band Neutrophils 0 % (0-8) Nucleated Red Blood Cells 5 /100 WBC Platelet Estimate Adequate Platelet Morphology Normal Hypochromasia 3+ Anisocytosis 1+ Sodium Level 152 MMOL/L (136-145) Potassium Level 3.7 MMOL/L (3.5-5.1) Chloride Level 117 MMOL/L (98-107) Carbon Dioxide Level 16 MMOL/L (21-32) Anion Gap 20 mmol/L (5-15) Blood Urea Nitrogen 94 mg/dL (7-18) Creatinine 8.5 MG/DL (0.55-1.30) Estimat Glomerular Filtration Rate 6.3 mL/min (>60) Glucose Level 190 MG/DL (74-106) Calcium Level 6.4 MG/DL (8.5-10.1) Total Bilirubin 1.0 MG/DL (0.2-1.0) Aspartate Amino Transf (AST/SGOT) 549 U/L (15-37) Alanine Aminotransferase (ALT/SGPT) 251 U/L (12-78) Alkaline Phosphatase 118 U/L (46-116) Troponin I 0.316 ng/mL (0.000-0.056) Total Protein 5.8 G/DL (6.4-8.2) Albumin 2.1 G/DL (3.4-5.0) Globulin 3.7 g/dL Albumin/Globulin Ratio 0.6 (1.0-2.7) Test 02/06/19 11:55 02/06/19 12:56 02/06/19 19:05 02/07/19 04:00 Troponin I 0.330 ng/mL (0.000-0.056) Arterial Blood pH 7.224 (7.350-7.450) Arterial Blood Partial Pressure CO2 19.6 mmHg (35.0-45.0) Arterial Blood Partial Pressure O2 151.2 mmHg (75.0-100.0) Arterial Blood HCO3 7.9 mmol/L (22.0-26.0) Arterial Blood Oxygen Saturation 98.0 % (95-100) Arterial Blood Base Excess -18.0 (-2-2) Trevor Test Positive White Blood Count 22.5 K/UL (4.8-10.8) 16.8 K/UL (4.8-10.8) Red Blood Count 3.26 M/UL (4.70-6.10) 3.28 M/UL (4.70-6.10) Hemoglobin 9.4 G/DL (14.2-18.0) 9.5 G/DL (14.2-18.0) Hematocrit 28.6 % (42.0-52.0) 28.9 % (42.0-52.0) Mean Corpuscular Volume 88 FL (80-99) 88 FL (80-99) Mean Corpuscular Hemoglobin 28.8 PG (27.0-31.0) 29.0 PG (27.0-31.0) Mean Corpuscular Hemoglobin Concent 32.8 G/DL (32.0-36.0) 32.9 G/DL (32.0-36.0) Red Cell Distribution Width 13.5 % (11.6-14.8) 13.7 % (11.6-14.8) Platelet Count 145 K/UL (150-450) 140 K/UL (150-450) Mean Platelet Volume 7.0 FL (6.5-10.1) 8.2 FL (6.5-10.1) Neutrophils (%) (Auto) % (45.0-75.0) % (45.0-75.0) Lymphocytes (%) (Auto) % (20.0-45.0) % (20.0-45.0) Monocytes (%) (Auto) % (1.0-10.0) % (1.0-10.0) Eosinophils (%) (Auto) % (0.0-3.0) % (0.0-3.0) Basophils (%) (Auto) % (0.0-2.0) % (0.0-2.0) Differential Total Cells Counted 100 100 Neutrophils % (Manual) 94 % (45-75) 92 % (45-75) Lymphocytes % (Manual) 3 % (20-45) 3 % (20-45) Monocytes % (Manual) 3 % (1-10) 5 % (1-10) Eosinophils % (Manual) 0 % (0-3) 0 % (0-3) Basophils % (Manual) 0 % (0-2) 0 % (0-2) Band Neutrophils 0 % (0-8) 0 % (0-8) Nucleated Red Blood Cells 2 /100 WBC Platelet Estimate Decreased Decreased Platelet Morphology Normal Normal Polychromasia 1+ Anisocytosis 1+ 1+ Prothrombin Time 11.7 SEC (9.30-11.50) Prothromb Time International Ratio 1.1 (0.9-1.1) Sodium Level 148 MMOL/L (136-145) 148 MMOL/L (136-145) Potassium Level 3.7 MMOL/L (3.5-5.1) 2.9 MMOL/L (3.5-5.1) Chloride Level 111 MMOL/L (98-107) 111 MMOL/L (98-107) Carbon Dioxide Level 10 MMOL/L (21-32) 15 MMOL/L (21-32) Anion Gap 27 mmol/L (5-15) 22 mmol/L (5-15) Blood Urea Nitrogen 102 mg/dL (7-18) 102 mg/dL (7-18) Creatinine 8.7 MG/DL (0.55-1.30) 9.0 MG/DL (0.55-1.30) Estimat Glomerular Filtration Rate 6.1 mL/min (>60) 5.9 mL/min (>60) Glucose Level 345 MG/DL (74-106) 344 MG/DL (74-106) Calcium Level 6.8 MG/DL (8.5-10.1) 6.6 MG/DL (8.5-10.1) Magnesium Level 2.1 MG/DL (1.8-2.4) Hypochromasia 2+ Hepatitis A IgM Antibody Negative (Negative) Hepatitis B Surface Antigen Negative (Negative) Hepatitis B Core IgM Antibody Negative (Negative) Hepatitis C Antibody >11.0 s/co ratio Test 02/07/19 09:25 02/08/19 03:50 Arterial Blood pH 7.338 (7.350-7.450) Arterial Blood Partial Pressure CO2 24.2 mmHg (35.0-45.0) Arterial Blood Partial Pressure O2 95.5 mmHg (75.0-100.0) Arterial Blood HCO3 12.7 mmol/L (22.0-26.0) Arterial Blood Oxygen Saturation 96.1 % (95-100) Arterial Blood Base Excess -11.6 (-2-2) Trevor Test Positive White Blood Count 20.4 K/UL (4.8-10.8) Red Blood Count 3.37 M/UL (4.70-6.10) Hemoglobin 9.9 G/DL (14.2-18.0) Hematocrit 29.3 % (42.0-52.0) Mean Corpuscular Volume 87 FL (80-99) Mean Corpuscular Hemoglobin 29.3 PG (27.0-31.0) Mean Corpuscular Hemoglobin Concent 33.7 G/DL (32.0-36.0) Red Cell Distribution Width 14.0 % (11.6-14.8) Platelet Count 144 K/UL (150-450) Mean Platelet Volume 9.0 FL (6.5-10.1) Neutrophils (%) (Auto) % (45.0-75.0) Lymphocytes (%) (Auto) % (20.0-45.0) Monocytes (%) (Auto) % (1.0-10.0) Eosinophils (%) (Auto) % (0.0-3.0) Basophils (%) (Auto) % (0.0-2.0) Differential Total Cells Counted 100 Neutrophils % (Manual) 96 % (45-75) Lymphocytes % (Manual) 2 % (20-45) Monocytes % (Manual) 2 % (1-10) Eosinophils % (Manual) 0 % (0-3) Basophils % (Manual) 0 % (0-2) Band Neutrophils 0 % (0-8) Nucleated Red Blood Cells 3 /100 WBC Platelet Estimate Decreased Platelet Morphology Normal Hypochromasia 2+ Anisocytosis 1+ Prothrombin Time 11.0 SEC (9.30-11.50) Prothromb Time International Ratio 1.0 (0.9-1.1) Sodium Level 145 MMOL/L (136-145) Potassium Level 2.3 MMOL/L (3.5-5.1) Chloride Level 106 MMOL/L (98-107) Carbon Dioxide Level 20 MMOL/L (21-32) Anion Gap 19 mmol/L (5-15) Blood Urea Nitrogen 66 mg/dL (7-18) Creatinine 6.5 MG/DL (0.55-1.30) Estimat Glomerular Filtration Rate 8.6 mL/min (>60) Glucose Level 389 MG/DL (74-106) Hemoglobin A1c 6.3 % (4.3-6.0) Calcium Level 7.3 MG/DL (8.5-10.1) Iron Level 174 ug/dL (50-175) Total Iron Binding Capacity 220 ug/dL (250-450) Percent Iron Saturation 79 % (15-50) Unsaturated Iron Binding 46 ug/dL (112-346) Total Bilirubin 0.7 MG/DL (0.2-1.0) Aspartate Amino Transf (AST/SGOT) 48 U/L (15-37) Alanine Aminotransferase (ALT/SGPT) 110 U/L (12-78) Alkaline Phosphatase 98 U/L (46-116) Troponin I 0.275 ng/mL (0.000-0.056) Total Protein 6.1 G/DL (6.4-8.2) Albumin 2.0 G/DL (3.4-5.0) Globulin 4.1 g/dL Albumin/Globulin Ratio 0.5 (1.0-2.7) Amylase Level 41 U/L (25-115) Lipase 201 U/L (73-393) Folate 12.6 NG/ML (8.6-58.9) Height (Feet): 5 Height (Inches): 3.00 Weight (Pounds): 135 Objective PE Gen: Fatigued, on Mechanical Ventilator Head: normocephalic, atraumatic, ETT, OGT Eyes: bilateral eye PERRL, b/l eye EOMI Respiratory: Bilateral wheezing, rhonchi ++ vent Cardiovascular: normal heart sound, normal peripheral pulses, rrr GI: non tender, soft, no guarding, no rebound Msk normal inspection Neuro: sedated, no focal signs Skin: no rash, warm/dry Nicho Rebolledo MD Feb 08, 2019 16:00
--- NOTE | 2019-02-08 16:09 | Nephrology Progress Note ---
Assessment/Plan Plan ESRD - STARTED HD via femoral Junior. Needs PermaCath + AVF. To get a PermaCath soon. Sepsis - per ID. Resp Failure - hope to wean soon. Subjective Subjective On vent. Objective Objective Last 24 Hour Vital Signs Date Time Temp Pulse Resp B/P (MAP) Pulse Ox O2 Delivery O2 Flow Rate FiO2 02/08/19 14:58 103 24 98 Mechanical Ventilator 40 02/08/19 14:44 104 29 40 02/08/19 14:44 103 26 100 Mechanical Ventilator 40 02/08/19 13:21 108 30 40 02/08/19 11:19 103 27 100 Mechanical Ventilator 40 02/08/19 11:03 101 26 91 Mechanical Ventilator 40 02/08/19 11:03 101 29 40 02/08/19 11:00 98 26 154/68 (96) 100 02/08/19 10:30 26 Non-Rebreather 40 02/08/19 10:00 94 26 156/65 (95) 100 02/08/19 09:00 98 26 165/66 (99) 100 02/08/19 08:58 96 26 40 02/08/19 08:00 40 02/08/19 08:00 Mechanical Ventilator 02/08/19 08:00 96 26 163/59 (93) 100 02/08/19 07:16 101 26 100 Mechanical Ventilator 40 02/08/19 07:06 103 28 40 02/08/19 07:06 103 26 100 Mechanical Ventilator 40 02/08/19 07:00 99.0 101 26 158/83 (108) 100 02/08/19 06:00 94 26 164/63 (96) 100 02/08/19 05:01 95 26 40 02/08/19 05:00 94 26 161/62 (95) 100 02/08/19 04:00 40 02/08/19 04:00 Mechanical Ventilator 02/08/19 04:00 99.1 101 26 154/59 (90) 98 02/08/19 04:00 98 02/08/19 03:02 101 26 100 Mechanical Ventilator 40 02/08/19 03:00 99 25 156/59 (91) 100 02/08/19 02:55 98 26 100 Mechanical Ventilator 40 02/08/19 02:48 99 26 40 02/08/19 02:00 100 25 159/58 (91) 98 02/08/19 01:13 103 26 40 02/08/19 01:00 103 26 154/56 (88) 98 02/08/19 00:00 99.3 107 23 135/85 (102) 89 02/08/19 00:00 Mechanical Ventilator 02/08/19 00:00 40 02/08/19 00:00 104 02/07/19 23:12 110 26 100 Mechanical Ventilator 40 02/07/19 23:03 98 27 40 02/07/19 23:00 96 25 162/60 (94) 97 02/07/19 23:00 96 26 97 Mechanical Ventilator 40 02/07/19 22:00 95 26 154/58 (90) 99 02/07/19 21:07 97 26 40 02/07/19 21:00 95 26 159/63 (95) 98 02/07/19 20:00 40 02/07/19 20:00 94 02/07/19 20:00 98.2 94 24 155/58 (90) 99 02/07/19 20:00 Mechanical Ventilator 02/07/19 19:00 93 26 155/62 (93) 100 02/07/19 18:50 90 26 100 Mechanical Ventilator 40 02/07/19 18:43 92 26 40 02/07/19 18:40 92 26 100 Mechanical Ventilator 40 02/07/19 18:00 93 26 155/62 (93) 100 02/07/19 17:00 94 25 164/64 (97) 98 02/07/19 16:58 95 26 40 Intake and Output 02/07/19 02/08/19 19:00 07:00 Intake Total 1067 ml 1085 ml Output Total 1560 ml 850 ml Balance -493 ml 235 ml Intake Oral 0 ml Free Water 100 ml 120 ml IV Total 907 ml 660 ml Tube Feeding 60 ml 305 ml Output Urine Total 500 ml 850 ml Gastric Drainage Total 60 ml Hemodialysis UF 1000 ml Laboratory Tests 02/08/19 03:50: White Blood Count 20.4H, Red Blood Count 3.37L, Hemoglobin 9.9L, Hematocrit 29.3L, Mean Corpuscular Volume 87, Mean Corpuscular Hemoglobin 29.3, Mean Corpuscular Hemoglobin Concent 33.7, Red Cell Distribution Width 14.0, Platelet Count 144L, Mean Platelet Volume 9.0, Neutrophils (%) (Auto) , Lymphocytes (%) ( Auto) , Monocytes (%) (Auto) , Eosinophils (%) (Auto) , Basophils (%) (Auto) , Differential Total Cells Counted 100, Neutrophils % (Manual) 96H, Lymphocytes % (Manual) 2L, Monocytes % (Manual) 2, Eosinophils % (Manual) 0, Basophils % ( Manual) 0, Band Neutrophils 0, Nucleated Red Blood Cells 3, Platelet Estimate DecreasedL, Platelet Morphology Normal, Hypochromasia 2+, Anisocytosis 1+, Prothrombin Time 11.0, Prothromb Time International Ratio 1.0, Sodium Level 145 , Potassium Level 2.3*L, Chloride Level 106, Carbon Dioxide Level 20L, Anion Gap 19H, Blood Urea Nitrogen 66H, Creatinine 6.5H, Estimat Glomerular Filtration Rate 8.6, Glucose Level 389H, Hemoglobin A1c 6.3H, Calcium Level 7.3L , Iron Level 174, Total Iron Binding Capacity 220L, Percent Iron Saturation 79H , Unsaturated Iron Binding 46L, Total Bilirubin 0.7, Aspartate Amino Transf (AST /SGOT) 48H, Alanine Aminotransferase (ALT/SGPT) 110H, Alkaline Phosphatase 98, Troponin I 0.275H, Total Protein 6.1L, Albumin 2.0L, Globulin 4.1, Albumin/ Globulin Ratio 0.5L, Amylase Level 41, Lipase 201, Folate 12.6, Hepatitis A IgM Antibody [Pending], Hepatitis B Surface Antigen [Pending], Hepatitis B Core IgM Antibody [Pending], Hepatitis C Antibody [Pending] Height (Feet): 5 Height (Inches): 3.00 Weight (Pounds): 135 Objective On vent. Arousable. CV RR Lungs CTA Abd SNT. BS + E No CCE. B BKS stumps clean. Nery Quezada MD Feb 08, 2019 16:09
--- NOTE | 2019-02-08 17:36 | Diagnostic Imaging Report ---
Indication: Post nasogastric tube placement Technique: Supine view of the upper abdomen Comparison: 02/06/2019 Findings: Again demonstrated is a nasogastric tube. However, the tip is barely in the gastric fundus and the proximal port is right at the expected level of the gastroesophageal junction. The bowel gas pattern is unremarkable. A central venous catheter is seen with its tip in the expected region of the left iliac venous confluence. There is suggestion of parenchymal disease at the lung bases Impression: Somewhat high position of nasogastric tube. Advancement recommended. ICU nurse Kiya notified at the time of interpretation Other findings as noted
--- NOTE | 2019-02-08 18:37 | Diagnostic Imaging Report ---
EXAM: XR Abdomen, 1 View CLINICAL HISTORY: NGT TECHNIQUE: Frontal supine view of the abdomen/pelvis. COMPARISON: No relevant prior studies available. FINDINGS: Lower thorax: Interstitial opacities. Large cardiac silhouette. Retrocardiac atelectasis/consolidation. Gastrointestinal tract: Unremarkable. Bones/joints: No acute fracture. Tubes, lines and devices: Enteric tube near the gastroduodenal junction. Other findings: Single view 02/08/19 at 1820. IMPRESSION: Enteric tube near the gastroduodenal junction.
--- NOTE | 2019-02-08 19:23 | NUR ---
HAND-OFF: Report given to YU Valerio.
--- NOTE | 2019-02-08 19:30 | NUR ---
NURSE NOTES: Recvd.on a vent.Orally intubated.See Settings.Lungs Diminished BS at bases.Sat.100%.See V/S Scope SR.Pos. chg.Alert, with Pd.of disorientation.Re-oriented,Reassured.Suctioned scant Tk.beige sec.NS lavaged.See KUB results.NGT Pulled out 2cm.Feeding restart.Suprapubic cath.patent.diuresis well.Cont.on IV Thera via TLC (R) Femo.Junior cath intact (L) Femo.Joe.for poss.HD in am.
[2019-02-08] MEDS: Epoetin Alfa-EPBX(ESRD on dialysis)10,000 unit/ml vial SUBQ SCH (20:44)
[2019-02-08] MEDS: Dyna-Hex 2% Top Sol 2oz TOPIC SCH (20:44)
[2019-02-08] MEDS: Iron Sucrose 100 MG in NS 55 ML IV SCH (21:07)
--- NOTE | 2019-02-08 22:30 | NUR ---
NURSE NOTES: HS care provided.Pos.chg.Suctioned.Due meds admin.No distress.
[2019-02-09] VITALS (24 sets, daily range): BP systolic 135–164; BP diastolic 52–86
--- NOTE | 2019-02-09 00:10 | NUR ---
NURSE NOTES: See V/S.Scope rhythm same.Denies CP.Pos.chg.FSBS-192 covered.Cont.Plan of care.
--- NOTE | 2019-02-09 02:00 | NUR ---
NURSE NOTES: Repostioned,Kept comfortable.Armani.NGT Feeding.Suctioned.
[2019-02-09] MEDS: Albuterol/Ipratropium 3ml neb HHN SCH ×6 (03:28→23:07)
--- NOTE | 2019-02-09 04:30 | NUR ---
NURSE NOTES: Blood drawn for cbc/cmp/ptt spec.to lab.brady Lazar.VSS.Scope Rhythm same No CP.Joe for poss. HD this am.See I/O.
[2019-02-09 04:56] LABS: ANION GAP 10 mmol/L (5-15); BLOOD UREA NITROGEN 65 mg/dL (7-18); CALCIUM 7.4 MG/DL (8.5-10.1); CARBON DIOXIDE 30 MMOL/L (21-32); CHLORIDE 106 MMOL/L (98-107); CREATININE 6.6 MG/DL (0.55-1.30); SODIUM 146 MMOL/L (136-145)
[2019-02-09 04:57] LABS: HEMATOCRIT 28.8 % (42.0-52.0); HEMOGLOBIN 9.5 G/DL (14.2-18.0); MEAN CORPUSCULAR VOLUME 87 FL (80-99); PLATELET COUNT 114 K/UL (150-450); RED BLOOD COUNT 3.29 M/UL (4.70-6.10); RED CELL DISTRIBUTION WIDTH 14.1 % (11.6-14.8)
[2019-02-09 04:58] LABS: POTASSIUM 2.2 MMOL/L (3.5-5.1); WHITE BLOOD COUNT 23.4 K/UL (4.8-10.8)
[2019-02-09] MEDS ORDERED: Heparin Sod 1000 units/ml 10ml IV PRN (06:00)
[2019-02-09] MEDS ORDERED: Heparin 1000 units/ml 1ml Vial INJ PRN (06:00)
[2019-02-09] MEDS: NovoLOG Insulin Flexpen SUBQ SCH ×4 (06:07→23:45)
--- NOTE | 2019-02-09 07:00 | NUR ---
RESPIRATORY NOTES: Received patient on ACVC RR 26, VT 550, FIO2 40%, PEEP +8. Intubated with 7.5 ETT at 23cm at the lip, secured with anchorfast. Bilateral breath sounds reveal rhonchi. Suctioned minimal amount of bloody secretions through the ETT and thin clear secretions orally. Patient is currently alert and awake. Alarms are on and audible. Vent plugged into red outlet. Will continue to monitor throughout the day.
--- NOTE | 2019-02-09 07:35 | NUR ---
HAND-OFF: Report given to YU ENGLE.
--- NOTE | 2019-02-09 07:36 | NUR ---
NURSE NOTES: RECEIVED PATIENT FROM Crystal JACKSON RN. PATIENT IS SEEN RESTING IN BED, AWAKE, AND RESPONSIVE. 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 ORALLY INTUBATED. ETT 7.5 AT 23CM LIP LINE. VENT SETTINGS OF AC 26, TV 550, FiO2 40%, PEEP 8. NO SIGS OF CARDIO OR RESPI DISTRESS OF THE MOMENT. NOTED NGT ON R NARE RUNNING GT NEPRO AT 35ML/HR. ORAL CARE DONE. REPOSITIONED PATIENT. WITH SUPRAPUBIC CATH, CONNECTED TO BAG. IV ON R FA G2O, SL AND L FEMORAL TLC WITH IVF RUNNING D5 NS + 2 AMPS SODIUM BICARB AT 60ML/HR. HOB ELEVATED. CALL LIGHT WITHIN REACH. BED AT LOWEST POSITION. SIDE RAILS UP. WILL CONTINUE TO MONITOR.
--- NOTE | 2019-02-09 07:45 | NUR ---
NURSE NOTES: WASTED FENTANYL WITH THE PHARMACIST ON DUTY.
--- NOTE | 2019-02-09 08:54 | General Progress Note ---
Assessment/Plan Assessment/Plan: 1. History of COPD. 2. Coronary artery disease. 3. History of atrial fibrillation. 4. Hypertension. 5. Hyperlipidemia. 6. Diabetes. 7. Peripheral vascular disease with bilateral amputations. 8. Anemia. 9. GERD. 10. Constipation 11. dysphagia NGTF respiratory care fu labs pending possible extubation low K but pending HD today>> will defer to nephrology Subjective ROS Limited/Unobtainable: No Allergies: Coded Allergies: No Known Allergies (Unverified , 09/25/17) Objective Last 24 Hour Vital Signs Date Time Temp Pulse Resp B/P (MAP) Pulse Ox O2 Delivery O2 Flow Rate FiO2 02/09/19 08:35 91 27 40 02/09/19 08:00 97.5 92 23 143/61 (88) 97 02/09/19 08:00 40 02/09/19 07:00 91 21 135/54 (81) 97 02/09/19 06:44 87 26 99 Mechanical Ventilator 40 02/09/19 06:42 93 28 40 02/09/19 06:35 88 26 96 Mechanical Ventilator 40 02/09/19 06:00 86 23 142/60 (87) 97 02/09/19 05:25 85 24 40 02/09/19 05:00 89 20 138/52 (80) 97 02/09/19 04:00 98.3 85 23 155/68 (97) 99 02/09/19 04:00 Mechanical Ventilator 02/09/19 04:00 85 02/09/19 04:00 40 02/09/19 03:34 82 26 98 Mechanical Ventilator 40 02/09/19 03:25 83 26 99 Mechanical Ventilator 40 02/09/19 03:25 83 26 40 02/09/19 03:00 83 23 160/68 (98) 99 02/09/19 02:00 83 23 151/67 (95) 99 02/09/19 01:00 84 26 164/67 (99) 99 02/09/19 00:45 87 27 40 02/09/19 00:00 99.1 87 25 156/66 (96) 99 02/09/19 00:00 87 02/09/19 00:00 40 02/09/19 00:00 Mechanical Ventilator 02/08/19 23:16 85 26 99 Mechanical Ventilator 40 02/08/19 23:05 86 26 94 Mechanical Ventilator 40 02/08/19 23:04 86 26 40 02/08/19 23:00 87 26 155/65 (95) 98 02/08/19 22:00 86 22 131/59 (83) 98 02/08/19 21:17 90 26 40 02/08/19 21:00 91 26 158/62 (94) 96 02/08/19 20:00 93 02/08/19 20:00 Mechanical Ventilator 02/08/19 20:00 98.7 93 23 157/82 (107) 99 02/08/19 20:00 40 02/08/19 19:30 93 26 99 Mechanical Ventilator 40 02/08/19 19:20 89 26 40 02/08/19 19:20 88 26 98 Mechanical Ventilator 40 02/08/19 19:00 94 25 157/64 (95) 97 02/08/19 18:00 97 17 146/75 (98) 92 02/08/19 17:19 100 27 40 02/08/19 17:00 95 26 161/64 (96) 97 02/08/19 16:00 Mechanical Ventilator 02/08/19 16:00 100 02/08/19 16:00 97 02/08/19 16:00 99.1 100 25 160/67 (98) 95 02/08/19 16:00 40 02/08/19 15:00 100 26 166/67 (100) 97 02/08/19 14:58 103 24 98 Mechanical Ventilator 40 02/08/19 14:44 104 29 40 02/08/19 14:44 103 26 100 Mechanical Ventilator 40 02/08/19 14:00 105 24 159/65 (96) 96 02/08/19 13:21 108 30 40 02/08/19 13:00 106 24 158/91 (113) 97 02/08/19 12:00 98.0 99 26 166/69 (101) 98 02/08/19 12:00 99 02/08/19 12:00 40 02/08/19 12:00 Mechanical Ventilator 02/08/19 12:00 94 02/08/19 11:19 103 27 100 Mechanical Ventilator 40 02/08/19 11:03 101 26 91 Mechanical Ventilator 40 02/08/19 11:03 101 29 40 02/08/19 11:00 98 26 154/68 (96) 100 02/08/19 10:30 26 Non-Rebreather 40 02/08/19 10:00 94 26 156/65 (95) 100 02/08/19 09:00 98 26 165/66 (99) 100 02/08/19 08:58 96 26 40 Intake and Output 02/08/19 02/09/19 18:59 06:59 Intake Total 305 ml 1370 ml Output Total 1200 ml 790 ml Balance -895 ml 580 ml Free Water 60 ml 200 ml IV Total 780 ml Tube Feeding 245 ml 390 ml Output Urine Total 1200 ml 790 ml # Bowel Movements 2 Laboratory Tests 02/08/19 17:10: Lactic Acid Level 1.90 02/09/19 04:30: White Blood Count 23.4*H, Red Blood Count 3.29L, Hemoglobin 9.5L, Hematocrit 28.8L, Mean Corpuscular Volume 87, Mean Corpuscular Hemoglobin 28.9, Mean Corpuscular Hemoglobin Concent 33.1, Red Cell Distribution Width 14.1, Platelet Count 114L, Mean Platelet Volume 9.1, Neutrophils (%) (Auto) , Lymphocytes (%) ( Auto) , Monocytes (%) (Auto) , Eosinophils (%) (Auto) , Basophils (%) (Auto) , Differential Total Cells Counted 100, Neutrophils % (Manual) 85H, Lymphocytes % (Manual) 10L, Monocytes % (Manual) 4, Eosinophils % (Manual) 1, Basophils % ( Manual) 0, Band Neutrophils 0, Nucleated Red Blood Cells 1, Platelet Estimate DecreasedL, Platelet Morphology Normal, Hypochromasia 2+, Anisocytosis 1+, Spherocytes 1+, Sodium Level 146H, Potassium Level 2.2*L, Chloride Level 106, Carbon Dioxide Level 30, Anion Gap 10, Blood Urea Nitrogen 65H, Creatinine 6.6H , Estimat Glomerular Filtration Rate 8.4, Glucose Level 128#H, Calcium Level 7.4L, Random Vancomycin Level 27.0 Height (Feet): 5 Height (Inches): 3.00 Weight (Pounds): 134 General Appearance: confused EENT: normal ENT inspection Neck: supple Cardiovascular: tachycardia Respiratory/Chest: decreased breath sounds Abdomen: normal bowel sounds, non tender, soft Extremities: non-tender Kelvin Andrew MD Feb 09, 2019 08:54
--- NOTE | 2019-02-09 09:00 | NUR ---
NURSE NOTES: SEEN AND EXAMINED BY DR SHAFER. NADINEO. PATIENT SEEN LYING IN BED COMFORTABLY, SELF-REPOSITIONED. NO SIGNS OF DISTRESS. WILL CONTINUE TO MONITOR.
--- NOTE | 2019-02-09 09:37 | NUR ---
NURSE NOTES: DR PATHAK MADE AWARE OF TH EK LEVEL, NEW ORDER MADE. HD NURSE MADE AWARE. WILL CONTINUE TO MONITOR.
[2019-02-09] MEDS: Meropenem 500 MG in NS 55 ML IVPB SCH (09:51)
[2019-02-09] MEDS: Heparin 5000 units/ml inj SUBQ SCH ×2 (09:52→20:44)
--- NOTE | 2019-02-09 11:00 | NUR ---
NURSE NOTES: HEMODIALYSIS STARTED. TOLERATED TUBE FEEDING. NO SIGNS OF DISTRESS OF THE MOMENT. WILL CONTINUE TO MONITOR.
--- NOTE | 2019-02-09 12:25 | Surgery Progress Note ---
Surgery Progress Note Subjective Procedure Performed right femoral temporary hemodialysis catheter insertion Additional Comments no acute events exam unchanged more alert labs ntoed leukocytosis Objective Last 24 Hour Vital Signs Date Time Temp Pulse Resp B/P (MAP) Pulse Ox O2 Delivery O2 Flow Rate FiO2 02/09/19 11:08 Mechanical Ventilator 40 02/09/19 11:08 Mechanical Ventilator 40 02/09/19 11:00 95 30 40 02/09/19 10:00 96 24 145/60 (88) 93 02/09/19 09:00 92 23 151/86 (107) 94 02/09/19 08:35 91 27 40 02/09/19 08:00 97.5 92 23 143/61 (88) 97 02/09/19 08:00 40 02/09/19 07:00 91 21 135/54 (81) 97 02/09/19 06:44 87 26 99 Mechanical Ventilator 40 02/09/19 06:42 93 28 40 02/09/19 06:35 88 26 96 Mechanical Ventilator 40 02/09/19 06:00 86 23 142/60 (87) 97 02/09/19 05:25 85 24 40 02/09/19 05:00 89 20 138/52 (80) 97 02/09/19 04:00 98.3 85 23 155/68 (97) 99 02/09/19 04:00 Mechanical Ventilator 02/09/19 04:00 85 02/09/19 04:00 40 02/09/19 03:34 82 26 98 Mechanical Ventilator 40 02/09/19 03:25 83 26 99 Mechanical Ventilator 40 02/09/19 03:25 83 26 40 02/09/19 03:00 83 23 160/68 (98) 99 02/09/19 02:00 83 23 151/67 (95) 99 02/09/19 01:00 84 26 164/67 (99) 99 02/09/19 00:45 87 27 40 02/09/19 00:00 99.1 87 25 156/66 (96) 99 02/09/19 00:00 87 02/09/19 00:00 40 02/09/19 00:00 Mechanical Ventilator 02/08/19 23:16 85 26 99 Mechanical Ventilator 40 02/08/19 23:05 86 26 94 Mechanical Ventilator 40 02/08/19 23:04 86 26 40 02/08/19 23:00 87 26 155/65 (95) 98 02/08/19 22:00 86 22 131/59 (83) 98 02/08/19 21:17 90 26 40 02/08/19 21:00 91 26 158/62 (94) 96 02/08/19 20:00 93 02/08/19 20:00 Mechanical Ventilator 02/08/19 20:00 98.7 93 23 157/82 (107) 99 02/08/19 20:00 40 02/08/19 19:30 93 26 99 Mechanical Ventilator 40 02/08/19 19:20 89 26 40 02/08/19 19:20 88 26 98 Mechanical Ventilator 40 02/08/19 19:00 94 25 157/64 (95) 97 02/08/19 18:00 97 17 146/75 (98) 92 02/08/19 17:19 100 27 40 02/08/19 17:00 95 26 161/64 (96) 97 02/08/19 16:00 Mechanical Ventilator 02/08/19 16:00 100 02/08/19 16:00 97 02/08/19 16:00 99.1 100 25 160/67 (98) 95 02/08/19 16:00 40 02/08/19 15:00 100 26 166/67 (100) 97 02/08/19 14:58 103 24 98 Mechanical Ventilator 40 02/08/19 14:44 104 29 40 02/08/19 14:44 103 26 100 Mechanical Ventilator 40 02/08/19 14:00 105 24 159/65 (96) 96 02/08/19 13:21 108 30 40 02/08/19 13:00 106 24 158/91 (113) 97 I&O Intake and Output 02/08/19 02/09/19 19:00 07:00 Intake Total 330 ml 1405 ml Output Total 1160 ml 780 ml Balance -830 ml 625 ml Free Water 60 ml 200 ml IV Total 60 ml 780 ml Tube Feeding 210 ml 425 ml Output Urine Total 1160 ml 780 ml # Bowel Movements 2 Dressing: dry Wound: clean Cardiovascular: RSR Respiratory: clear Abdomen: soft, non-tender, present bowel sounds, non-distended Extremities: no cyanosis, other Laboratory Tests Test 02/08/19 17:10 02/09/19 04:30 Lactic Acid Level 1.90 mmol/L (0.4-2.0) White Blood Count 23.4 K/UL (4.8-10.8) *H Red Blood Count 3.29 M/UL (4.70-6.10) L Hemoglobin 9.5 G/DL (14.2-18.0) L Hematocrit 28.8 % (42.0-52.0) L Mean Corpuscular Volume 87 FL (80-99) Mean Corpuscular Hemoglobin 28.9 PG (27.0-31.0) Mean Corpuscular Hemoglobin Concent 33.1 G/DL (32.0-36.0) Red Cell Distribution Width 14.1 % (11.6-14.8) Platelet Count 114 K/UL (150-450) L Mean Platelet Volume 9.1 FL (6.5-10.1) Neutrophils (%) (Auto) % (45.0-75.0) Lymphocytes (%) (Auto) % (20.0-45.0) Monocytes (%) (Auto) % (1.0-10.0) Eosinophils (%) (Auto) % (0.0-3.0) Basophils (%) (Auto) % (0.0-2.0) Differential Total Cells Counted 100 Neutrophils % (Manual) 85 % (45-75) H Lymphocytes % (Manual) 10 % (20-45) L Monocytes % (Manual) 4 % (1-10) Eosinophils % (Manual) 1 % (0-3) Basophils % (Manual) 0 % (0-2) Band Neutrophils 0 % (0-8) Nucleated Red Blood Cells 1 /100 WBC Platelet Estimate Decreased L Platelet Morphology Normal Hypochromasia 2+ Anisocytosis 1+ Spherocytes 1+ Sodium Level 146 MMOL/L (136-145) H Potassium Level 2.2 MMOL/L (3.5-5.1) *L Chloride Level 106 MMOL/L (98-107) Carbon Dioxide Level 30 MMOL/L (21-32) Anion Gap 10 mmol/L (5-15) Blood Urea Nitrogen 65 mg/dL (7-18) H Creatinine 6.6 MG/DL (0.55-1.30) H Estimat Glomerular Filtration Rate 8.4 mL/min (>60) Glucose Level 128 MG/DL (74-106) #H Calcium Level 7.4 MG/DL (8.5-10.1) L Random Vancomycin Level 27.0 ug/mL Plan Problems: (1) ARDS (adult respiratory distress syndrome) (2) Anemia (3) Elevated troponin (4) MARY (acute kidney injury) (5) COPD with exacerbation (6) Abnormal LFTs Assessment & Plan: Abnormalities likely from shock liver. Gallbladder wall thickening nonspecific. Sonographic Rojas's is equivocal due to patient's condition. Trace ascites Bilateral pleural effusions. Suspected medical renal disease. Suspected nonobstructive stone in the right kidney. Trend labs (7) COPD (chronic obstructive pulmonary disease) (8) Respiratory distress (9) Pneumonia (10) HTN (hypertension) (11) Epileptic seizure, generalized (12) Shock liver Assessment & Plan: Shock liver likely from hypotension and cardiovascular arrest. Resuscitation with IV fluids ICU care and management Trend labs We will follow with recommendations (13) Suprapubic catheter Hari Batres Feb 09, 2019 12:25
--- NOTE | 2019-02-09 12:40 | NUR ---
NURSE NOTES: TOLERATING TUBE FEEDING, DIALYSIS AND VENT SETTINGS OF THE MOMENT. VSS. NO SIGNS OF DISTRESS. WILL CONTINUE TO MONITOR.
--- NOTE | 2019-02-09 13:00 | NUR ---
NURSE NOTES: TOLERATED DIALYSIS, OUTPUT OF 2L. NOTED MODERATED AMOUNT OF LOOSE DM. NO SIGN SOF DISTRESS. WILL CONTINUE TO MONITOR.
--- NOTE | 2019-02-09 14:12 | Nephrology Progress Note ---
Assessment/Plan Problem List: (1) CHF (congestive heart failure) (2) End-stage renal disease (3) COPD (chronic obstructive pulmonary disease) (4) HTN (hypertension) (5) ARDS (adult respiratory distress syndrome) Assessment: 4K dialysat, monitor glu , on vent, trend lab Plan stable on HD via fem cath -2000, low K and 4KK Subjective ROS Limited/Unobtainable: Yes Objective Objective Last 24 Hour Vital Signs Date Time Temp Pulse Resp B/P (MAP) Pulse Ox O2 Delivery O2 Flow Rate FiO2 02/09/19 14:00 88 26 143/65 (91) 100 02/09/19 13:15 97 31 40 02/09/19 13:00 89 26 152/65 (94) 99 02/09/19 12:00 97.1 87 24 152/78 (102) 100 02/09/19 12:00 40 02/09/19 12:00 Mechanical Ventilator 02/09/19 11:08 Mechanical Ventilator 40 02/09/19 11:08 Mechanical Ventilator 40 02/09/19 11:00 95 30 40 02/09/19 11:00 96 20 151/58 (89) 99 02/09/19 10:00 96 24 145/60 (88) 93 02/09/19 09:00 92 23 151/86 (107) 94 02/09/19 08:35 91 27 40 02/09/19 08:00 95 02/09/19 08:00 97.5 92 23 143/61 (88) 97 02/09/19 08:00 40 02/09/19 08:00 Mechanical Ventilator 02/09/19 07:00 91 21 135/54 (81) 97 02/09/19 06:44 87 26 99 Mechanical Ventilator 40 02/09/19 06:42 93 28 40 02/09/19 06:35 88 26 96 Mechanical Ventilator 40 02/09/19 06:00 86 23 142/60 (87) 97 02/09/19 05:25 85 24 40 02/09/19 05:00 89 20 138/52 (80) 97 02/09/19 04:00 98.3 85 23 155/68 (97) 99 02/09/19 04:00 Mechanical Ventilator 02/09/19 04:00 85 02/09/19 04:00 40 02/09/19 03:34 82 26 98 Mechanical Ventilator 40 02/09/19 03:25 83 26 99 Mechanical Ventilator 40 02/09/19 03:25 83 26 40 02/09/19 03:00 83 23 160/68 (98) 99 02/09/19 02:00 83 23 151/67 (95) 99 02/09/19 01:00 84 26 164/67 (99) 99 02/09/19 00:45 87 27 40 02/09/19 00:00 99.1 87 25 156/66 (96) 99 02/09/19 00:00 87 02/09/19 00:00 40 02/09/19 00:00 Mechanical Ventilator 02/08/19 23:16 85 26 99 Mechanical Ventilator 40 02/08/19 23:05 86 26 94 Mechanical Ventilator 40 02/08/19 23:04 86 26 40 02/08/19 23:00 87 26 155/65 (95) 98 02/08/19 22:00 86 22 131/59 (83) 98 02/08/19 21:17 90 26 40 02/08/19 21:00 91 26 158/62 (94) 96 02/08/19 20:00 93 02/08/19 20:00 Mechanical Ventilator 02/08/19 20:00 98.7 93 23 157/82 (107) 99 02/08/19 20:00 40 02/08/19 19:30 93 26 99 Mechanical Ventilator 40 02/08/19 19:20 89 26 40 02/08/19 19:20 88 26 98 Mechanical Ventilator 40 02/08/19 19:00 94 25 157/64 (95) 97 02/08/19 18:00 97 17 146/75 (98) 92 02/08/19 17:19 100 27 40 02/08/19 17:00 95 26 161/64 (96) 97 02/08/19 16:00 Mechanical Ventilator 02/08/19 16:00 100 02/08/19 16:00 97 02/08/19 16:00 99.1 100 25 160/67 (98) 95 02/08/19 16:00 40 02/08/19 15:00 100 26 166/67 (100) 97 02/08/19 14:58 103 24 98 Mechanical Ventilator 40 02/08/19 14:44 104 29 40 02/08/19 14:44 103 26 100 Mechanical Ventilator 40 Intake and Output 02/08/19 02/09/19 19:00 07:00 Intake Total 330 ml 1405 ml Output Total 1160 ml 780 ml Balance -830 ml 625 ml Free Water 60 ml 200 ml IV Total 60 ml 780 ml Tube Feeding 210 ml 425 ml Output Urine Total 1160 ml 780 ml # Bowel Movements 2 Laboratory Tests 02/08/19 17:10: Lactic Acid Level 1.90 02/09/19 04:30: White Blood Count 23.4*H, Red Blood Count 3.29L, Hemoglobin 9.5L, Hematocrit 28.8L, Mean Corpuscular Volume 87, Mean Corpuscular Hemoglobin 28.9, Mean Corpuscular Hemoglobin Concent 33.1, Red Cell Distribution Width 14.1, Platelet Count 114L, Mean Platelet Volume 9.1, Neutrophils (%) (Auto) , Lymphocytes (%) ( Auto) , Monocytes (%) (Auto) , Eosinophils (%) (Auto) , Basophils (%) (Auto) , Differential Total Cells Counted 100, Neutrophils % (Manual) 85H, Lymphocytes % (Manual) 10L, Monocytes % (Manual) 4, Eosinophils % (Manual) 1, Basophils % ( Manual) 0, Band Neutrophils 0, Nucleated Red Blood Cells 1, Platelet Estimate DecreasedL, Platelet Morphology Normal, Hypochromasia 2+, Anisocytosis 1+, Spherocytes 1+, Sodium Level 146H, Potassium Level 2.2*L, Chloride Level 106, Carbon Dioxide Level 30, Anion Gap 10, Blood Urea Nitrogen 65H, Creatinine 6.6H , Estimat Glomerular Filtration Rate 8.4, Glucose Level 128#H, Calcium Level 7.4L, Random Vancomycin Level 27.0 Height (Feet): 5 Height (Inches): 3.00 Weight (Pounds): 134 General Appearance: alert EENT: normal ENT inspection Neck: normal alignment Cardiovascular: regular rhythm Respiratory/Chest: lungs clear Abdomen: non tender, soft, no organomegaly Extremities: other - bilat amputee, no edema Jesús Silva MD Feb 09, 2019 14:12
--- NOTE | 2019-02-09 14:51 | Cardiology Report ---
APPROVED REPORT EKG Measurement Heart [id number] Sinus rhythm with occasional premature ventricular complexes Possible Anterior infarct, age undetermined Abnormal ECG
--- NOTE | 2019-02-09 15:00 | NUR ---
NURSE NOTES: PATIENT TURNED AND REPOSITIONED. ORAL CARE DONE. PATIENT NOTED TO BE CALM AND FOLLOWS COMMAND. NO SIGNS OF DISTRESS OF THE MOMENT. WILL CONTINUE TO MONITOR.
--- NOTE | 2019-02-09 15:17 | Pulmonolgy Critical Care Note ---
Critical Care - Asmt/Plan Assessment/Plan: Pulmonary CCM Progress Note Assessment/Plan Assessment/Plan Impression: Respiratory failure, acute Chronic Obstructive Pulmonary Disease with exacerbation Pneumonia Acute kidney injury, h/o Chronic Kidney Disease Elevated troponin Anemia Congestive Heart Failure Previous Atrial Fibrillation Coronary Artery Disease Hypertension Hyperlipidemia Diabetes Bilateral amputations GERD ETOH abuse Plan AC Mechanical Ventilation- wean PEEP off pressors and monitor IV Antibiotics- ID noted HHN Monitor labs LE dupplex - SCD if negative Transfuse as needed HD for now [facility] Consultation medications/laboratory data/nursing notes/ICU care reviewed in detail note reviewed and edited care discussed with RN and RT ICU time spent 40 minutes Critical Care - Subjective Interval Events: remains ill on HD in ICU consultants appreciated ROS Limited/Unobtainable: Yes Condition: critical EKG Rhythm: Sinus Rhythm Critical Care - Objective ET-Tube: 7.5 ET Position: 23 Vital Signs Noted Labs Test 02/05/19 23:10 02/05/19 23:50 02/06/19 00:37 02/06/19 01:58 White Blood Count 14.4 K/UL (4.8-10.8) Red Blood Count 2.27 M/UL (4.70-6.10) Hemoglobin 6.4 G/DL (14.2-18.0) Hematocrit 19.4 % (42.0-52.0) Mean Corpuscular Volume 86 FL (80-99) Mean Corpuscular Hemoglobin 28.0 PG (27.0-31.0) Mean Corpuscular Hemoglobin Concent 32.8 G/DL (32.0-36.0) Red Cell Distribution Width 14.2 % (11.6-14.8) Platelet Count 195 K/UL (150-450) Mean Platelet Volume 7.6 FL (6.5-10.1) Neutrophils (%) (Auto) % (45.0-75.0) Lymphocytes (%) (Auto) % (20.0-45.0) Monocytes (%) (Auto) % (1.0-10.0) Eosinophils (%) (Auto) % (0.0-3.0) Basophils (%) (Auto) % (0.0-2.0) Prothrombin Time 11.2 SEC (9.30-11.50) Prothromb Time International Ratio 1.1 (0.9-1.1) Activated Partial Thromboplast Time 32 SEC (23-33) Urine Color Pale yellow Urine Appearance Clear Urine pH 5 (4.5-8.0) Urine Specific [place] 1.015 (1.005-1.035) Urine Protein 4+ (NEGATIVE) Urine Glucose (UA) 3+ (NEGATIVE) Urine Ketones Negative (NEGATIVE) Urine Blood 3+ (NEGATIVE) Urine Nitrite Negative (NEGATIVE) Urine Bilirubin Negative (NEGATIVE) Urine Urobilinogen Normal MG/DL (0.0-1.0) Urine Leukocyte Esterase Negative (NEGATIVE) Urine RBC 5-10 /HPF (0 - 0) Urine WBC 0-2 /HPF (0 - 0) Urine Squamous Epithelial Cells None /LPF (NONE/OCC) Urine Bacteria Few /HPF (NONE) Sodium Level 145 MMOL/L (136-145) Potassium Level 3.9 MMOL/L (3.5-5.1) Chloride Level 110 MMOL/L (98-107) Carbon Dioxide Level 10 MMOL/L (21-32) Anion Gap 25 mmol/L (5-15) Blood Urea Nitrogen 95 mg/dL (7-18) Creatinine 9.3 MG/DL (0.55-1.30) Estimat Glomerular Filtration Rate 5.7 mL/min (>60) Glucose Level 121 MG/DL (74-106) Lactic Acid Level 2.60 mmol/L (0.4-2.0) 1.60 mmol/L (0.66-2.22) Calcium Level 7.6 MG/DL (8.5-10.1) Total Bilirubin 0.7 MG/DL (0.2-1.0) Direct Bilirubin 0.2 MG/DL (0.0-0.3) Aspartate Amino Transf (AST/SGOT) 51 U/L (15-37) Alanine Aminotransferase (ALT/SGPT) 42 U/L (12-78) Alkaline Phosphatase 133 U/L (46-116) Total Creatine Kinase 245 U/L (26-308) Creatine Kinase MB 9.6 NG/ML (0.0-3.6) Creatine Kinase MB Relative Index 3.9 Troponin I 0.238 ng/mL (0.000-0.056) Pro-B-Type Natriuretic Peptide > 95305 pg/mL (0-125) Total Protein 7.5 G/DL (6.4-8.2) Albumin 2.8 G/DL (3.4-5.0) Globulin 4.7 g/dL Albumin/Globulin Ratio 0.6 (1.0-2.7) Lipase 374 U/L (73-393) Venous Blood pH 7.160 Venous Blood Partial Pressure CO2 22.6 Venous Blood Partial Pressure O2 43.9 Venous Blood HCO3 7.9 Venous Blood Total Carbon Dioxide 22.6 Venous Bld O2 Saturation (Measured) 43.9 Venous Blood Oxygen Saturation 65.3 Venous Blood Base Excess -19.1 Methemoglobin 1.0 Sodium (Blood Gas) Triglycerides Level 84 MG/DL (30-150) Test 02/06/19 04:54 02/06/19 06:12 02/06/19 07:45 02/06/19 08:09 Arterial Blood pH 6.899 (7.350-7.450) 7.216 (7.350-7.450) 7.282 (7.350-7.450) Arterial Blood Partial Pressure CO2 43.0 mmHg (35.0-45.0) 28.0 mmHg (35.0-45.0) 24.0 mmHg (35.0-45.0) Arterial Blood Partial Pressure O2 72.5 mmHg (75.0-100.0) 149.0 mmHg (75.0-100.0) 250.6 mmHg (75.0-100.0) Arterial Blood HCO3 8.2 mmol/L (22.0-26.0) 11.1 mmol/L (22.0-26.0) 11.1 mmol/L (22.0-26.0) Arterial Blood Oxygen Saturation 83.9 % (95-100) 98.0 % (95-100) 98.9 % (95-100) Arterial Blood Base Excess -23.3 (-2-2) -15.3 (-2-2) -14.2 (-2-2) Trevor Test Positive Positive Positive White Blood Count 18.3 K/UL (4.8-10.8) Red Blood Count 2.50 M/UL (4.70-6.10) Hemoglobin 7.2 G/DL (14.2-18.0) Hematocrit 22.5 % (42.0-52.0) Mean Corpuscular Volume 90 FL (80-99) Mean Corpuscular Hemoglobin 29.0 PG (27.0-31.0) Mean Corpuscular Hemoglobin Concent 32.1 G/DL (32.0-36.0) Red Cell Distribution Width 14.3 % (11.6-14.8) Platelet Count 153 K/UL (150-450) Mean Platelet Volume 8.1 FL (6.5-10.1) Neutrophils (%) (Auto) % (45.0-75.0) Lymphocytes (%) (Auto) % (20.0-45.0) Monocytes (%) (Auto) % (1.0-10.0) Eosinophils (%) (Auto) % (0.0-3.0) Basophils (%) (Auto) % (0.0-2.0) Differential Total Cells Counted 100 Neutrophils % (Manual) 97 % (45-75) Lymphocytes % (Manual) 1 % (20-45) Monocytes % (Manual) 2 % (1-10) Eosinophils % (Manual) 0 % (0-3) Basophils % (Manual) 0 % (0-2) Band Neutrophils 0 % (0-8) Nucleated Red Blood Cells 5 /100 WBC Platelet Estimate Adequate Platelet Morphology Normal Hypochromasia 3+ Anisocytosis 1+ Sodium Level 152 MMOL/L (136-145) Potassium Level 3.7 MMOL/L (3.5-5.1) Chloride Level 117 MMOL/L (98-107) Carbon Dioxide Level 16 MMOL/L (21-32) Anion Gap 20 mmol/L (5-15) Blood Urea Nitrogen 94 mg/dL (7-18) Creatinine 8.5 MG/DL (0.55-1.30) Estimat Glomerular Filtration Rate 6.3 mL/min (>60) Glucose Level 190 MG/DL (74-106) Calcium Level 6.4 MG/DL (8.5-10.1) Total Bilirubin 1.0 MG/DL (0.2-1.0) Aspartate Amino Transf (AST/SGOT) 549 U/L (15-37) Alanine Aminotransferase (ALT/SGPT) 251 U/L (12-78) Alkaline Phosphatase 118 U/L (46-116) Troponin I 0.316 ng/mL (0.000-0.056) Total Protein 5.8 G/DL (6.4-8.2) Albumin 2.1 G/DL (3.4-5.0) Globulin 3.7 g/dL Albumin/Globulin Ratio 0.6 (1.0-2.7) Test 02/06/19 11:55 02/06/19 12:56 02/06/19 19:05 02/07/19 04:00 Troponin I 0.330 ng/mL (0.000-0.056) Arterial Blood pH 7.224 (7.350-7.450) Arterial Blood Partial Pressure CO2 19.6 mmHg (35.0-45.0) Arterial Blood Partial Pressure O2 151.2 mmHg (75.0-100.0) Arterial Blood HCO3 7.9 mmol/L (22.0-26.0) Arterial Blood Oxygen Saturation 98.0 % (95-100) Arterial Blood Base Excess -18.0 (-2-2) Trevor Test Positive White Blood Count 22.5 K/UL (4.8-10.8) 16.8 K/UL (4.8-10.8) Red Blood Count 3.26 M/UL (4.70-6.10) 3.28 M/UL (4.70-6.10) Hemoglobin 9.4 G/DL (14.2-18.0) 9.5 G/DL (14.2-18.0) Hematocrit 28.6 % (42.0-52.0) 28.9 % (42.0-52.0) Mean Corpuscular Volume 88 FL (80-99) 88 FL (80-99) Mean Corpuscular Hemoglobin 28.8 PG (27.0-31.0) 29.0 PG (27.0-31.0) Mean Corpuscular Hemoglobin Concent 32.8 G/DL (32.0-36.0) 32.9 G/DL (32.0-36.0) Red Cell Distribution Width 13.5 % (11.6-14.8) 13.7 % (11.6-14.8) Platelet Count 145 K/UL (150-450) 140 K/UL (150-450) Mean Platelet Volume 7.0 FL (6.5-10.1) 8.2 FL (6.5-10.1) Neutrophils (%) (Auto) % (45.0-75.0) % (45.0-75.0) Lymphocytes (%) (Auto) % (20.0-45.0) % (20.0-45.0) Monocytes (%) (Auto) % (1.0-10.0) % (1.0-10.0) Eosinophils (%) (Auto) % (0.0-3.0) % (0.0-3.0) Basophils (%) (Auto) % (0.0-2.0) % (0.0-2.0) Differential Total Cells Counted 100 Neutrophils % (Manual) 94 % (45-75) Lymphocytes % (Manual) 3 % (20-45) Monocytes % (Manual) 3 % (1-10) Eosinophils % (Manual) 0 % (0-3) Basophils % (Manual) 0 % (0-2) Band Neutrophils 0 % (0-8) Nucleated Red Blood Cells 2 /100 WBC Platelet Estimate Decreased Platelet Morphology Normal Polychromasia 1+ Anisocytosis 1+ Prothrombin Time 11.7 SEC (9.30-11.50) Prothromb Time International Ratio 1.1 (0.9-1.1) Sodium Level 148 MMOL/L (136-145) 148 MMOL/L (136-145) Potassium Level 3.7 MMOL/L (3.5-5.1) 2.9 MMOL/L (3.5-5.1) Chloride Level 111 MMOL/L (98-107) 111 MMOL/L (98-107) Carbon Dioxide Level 10 MMOL/L (21-32) 15 MMOL/L (21-32) Anion Gap 27 mmol/L (5-15) 22 mmol/L (5-15) Blood Urea Nitrogen 102 mg/dL (7-18) 102 mg/dL (7-18) Creatinine 8.7 MG/DL (0.55-1.30) 9.0 MG/DL (0.55-1.30) Estimat Glomerular Filtration Rate 6.1 mL/min (>60) 5.9 mL/min (>60) Glucose Level 345 MG/DL (74-106) 344 MG/DL (74-106) Calcium Level 6.8 MG/DL (8.5-10.1) 6.6 MG/DL (8.5-10.1) Magnesium Level 2.1 MG/DL (1.8-2.4) Objective: WDWN poor LOC on vent clear breath sounds bilaterally without rhonchi or wheeze [id number] without MRG NABS nontender no HSM no CC nonfocal; sedated Micro: Microbiology Date/Time Source Procedure Growth Status 02/05/19 23:10 Blood Blood Culture - Preliminary NO GROWTH AFTER 24 HOURS Resulted 02/05/19 22:55 Blood Blood Culture - Preliminary NO GROWTH AFTER 24 HOURS Resulted 02/06/19 03:00 Rectum Received Critical Care - Objective Last 24 Hour Vital Signs Date Time Temp Pulse Resp B/P (MAP) Pulse Ox O2 Delivery O2 Flow Rate FiO2 02/09/19 14:00 88 26 143/65 (91) 100 02/09/19 13:15 97 31 40 02/09/19 13:00 89 26 152/65 (94) 99 02/09/19 12:00 97.1 87 24 152/78 (102) 100 02/09/19 12:00 96 02/09/19 12:00 40 02/09/19 12:00 Mechanical Ventilator 02/09/19 11:08 Mechanical Ventilator 40 02/09/19 11:08 Mechanical Ventilator 40 02/09/19 11:00 95 30 40 02/09/19 11:00 96 20 151/58 (89) 99 02/09/19 10:00 96 24 145/60 (88) 93 02/09/19 09:00 92 23 151/86 (107) 94 02/09/19 08:35 91 27 40 02/09/19 08:00 95 02/09/19 08:00 97.5 92 23 143/61 (88) 97 02/09/19 08:00 40 02/09/19 08:00 Mechanical Ventilator 02/09/19 07:00 91 21 135/54 (81) 97 02/09/19 06:44 87 26 99 Mechanical Ventilator 40 02/09/19 06:42 93 28 40 02/09/19 06:35 88 26 96 Mechanical Ventilator 40 02/09/19 06:00 86 23 142/60 (87) 97 02/09/19 05:25 85 24 40 02/09/19 05:00 89 20 138/52 (80) 97 02/09/19 04:00 98.3 85 23 155/68 (97) 99 02/09/19 04:00 Mechanical Ventilator 02/09/19 04:00 85 02/09/19 04:00 40 02/09/19 03:34 82 26 98 Mechanical Ventilator 40 02/09/19 03:25 83 26 99 Mechanical Ventilator 40 02/09/19 03:25 83 26 40 02/09/19 03:00 83 23 160/68 (98) 99 02/09/19 02:00 83 23 151/67 (95) 99 02/09/19 01:00 84 26 164/67 (99) 99 02/09/19 00:45 87 27 40 02/09/19 00:00 99.1 87 25 156/66 (96) 99 02/09/19 00:00 87 02/09/19 00:00 40 02/09/19 00:00 Mechanical Ventilator 02/08/19 23:16 85 26 99 Mechanical Ventilator 40 02/08/19 23:05 86 26 94 Mechanical Ventilator 40 02/08/19 23:04 86 26 40 02/08/19 23:00 87 26 155/65 (95) 98 02/08/19 22:00 86 22 131/59 (83) 98 02/08/19 21:17 90 26 40 02/08/19 21:00 91 26 158/62 (94) 96 02/08/19 20:00 93 02/08/19 20:00 Mechanical Ventilator 02/08/19 20:00 98.7 93 23 157/82 (107) 99 02/08/19 20:00 40 02/08/19 19:30 93 26 99 Mechanical Ventilator 40 02/08/19 19:20 89 26 40 02/08/19 19:20 88 26 98 Mechanical Ventilator 40 02/08/19 19:00 94 25 157/64 (95) 97 02/08/19 18:00 97 17 146/75 (98) 92 02/08/19 17:19 100 27 40 02/08/19 17:00 95 26 161/64 (96) 97 02/08/19 16:00 Mechanical Ventilator 02/08/19 16:00 100 02/08/19 16:00 97 02/08/19 16:00 99.1 100 25 160/67 (98) 95 02/08/19 16:00 40 Accucheck: 223 Critical Care - Subjective ROS Limited/Unobtainable: No FI02: 40 Vent Support Breath Rate: 26 Vent Support Mode: AC Vent Tidal Volume: 550 Sputum Amount: Moderate PEEP: 8.0 PIP: 37 Tube Feeding Amount: 35 I&O: Intake and Output 02/08/19 02/09/19 19:00 07:00 Intake Total 330 ml 1405 ml Output Total 1160 ml 780 ml Balance -830 ml 625 ml Free Water 60 ml 200 ml IV Total 60 ml 780 ml Tube Feeding 210 ml 425 ml Output Urine Total 1160 ml 780 ml # Bowel Movements 2 ET-Tube: 7.5 ET Position: 23 Jamari Chambers MD Feb 09, 2019 15:17
[2019-02-09 16:56] LABS: HEMATOCRIT 27.2 % (42.0-52.0); HEMOGLOBIN 9.4 G/DL (14.2-18.0); MEAN CORPUSCULAR VOLUME 86 FL (80-99); PLATELET COUNT 110 K/UL (150-450); RED BLOOD COUNT 3.16 M/UL (4.70-6.10); RED CELL DISTRIBUTION WIDTH 13.8 % (11.6-14.8); WHITE BLOOD COUNT 20.4 K/UL (4.8-10.8)
--- NOTE | 2019-02-09 17:05 | NUR ---
NURSE NOTES: SPOKE WITH DR CARRANZA. NEW ORDERS MADE. RT MADE AWARE OF THE NEW VENT SETTINGS. WILL CONTINUE TO MONITOR.
[2019-02-09 17:12] LABS: ANION GAP 13 mmol/L (5-15); BLOOD UREA NITROGEN 42 mg/dL (7-18); CARBON DIOXIDE 25 MMOL/L (21-32); CHLORIDE 103 MMOL/L (98-107); CREATININE 4.6 MG/DL (0.55-1.30); SODIUM 140 MMOL/L (136-145)
[2019-02-09 17:14] LABS: POTASSIUM 2.6 MMOL/L (3.5-5.1)
--- NOTE | 2019-02-09 19:04 | NUR ---
RESPIRATORY NOTE: Received pt. on 840 vent. Vent settings are: A/C rate of 26, Vt 550, FI02 50%, PEEP +5. No respiratory distress noted, pt. sP02 @ 100%. Vent plugged on red outlet. Will continue to monitor pt.
--- NOTE | 2019-02-09 19:10 | NUR ---
CASE MANAGEMENT: REVIEW SI: PNA . RESP FAILURE . RENAL INSUFFICIENCY RIGHT FEMORAL TEMPORARY HEMODIALYSIS CATHETER INSERTION 02/06 T 98.0 HR 103 RR 29 BP 150/69 SAT 98% MECH VENT FIO2 50 WBC 20.4 H/H 9.4/27.2 K 2.6 BUN 42 CR 4.6 IS: VENOFER IV QHS EPOETIN SUBQ MWF ALBUTEROL HHN Q4HR MEROPENEM IV QD HEPARIN SUBQ Q12HR ICU STATUS DCP: PATIENT IS FROM [facility]
--- NOTE | 2019-02-09 19:24 | NUR ---
HAND-OFF: Report given to Geronimo Chin RN.
--- NOTE | 2019-02-09 19:30 | NUR ---
NURSE NOTES: Received pt in no acute distress. Awake, alert, follow commands but non verbal secondary to ETT. Noted vent settings as ordered, well tolerated with fiO2.50, saturating 100%. Pt unrestrained but calm, cooperative and oriented. NSR ont he monitor, afebrile, BP stable. Right femoral Junior cath intact, with pigtail. Dressing clean and ry. Left femoral TLC leaking from the exit site. IV at TKO. SPC intact, urine clear, straw, no bleeding noted. S/P BBKA, stumps well healed. Skin dry and intact. Repositioned for comfort. Continue to monitor; fall precautions in place; bed locked and in low position, bed armed.
[2019-02-09] MEDS: Iron Sucrose 100 MG in NS 55 ML IV SCH (20:43)
[2019-02-09] MEDS: Dyna-Hex 2% Top Sol 2oz TOPIC SCH (20:43)
--- NOTE | 2019-02-09 21:00 | NUR ---
NURSE NOTES: DC'd left femoral TLC; pressure dressing applied. TKO IV transferred to [facility]. Will monitor for bleeding from the site
--- NOTE | 2019-02-09 22:00 | NUR ---
NURSE NOTES: Pt restless, tossing and turning on bed. Keeps touching and readjusting the ETT . Repositioned for comfort, reassured. Oral care and suctioning done. No further bleeding from the Left femoral area. Will continue to monitor
--- NOTE | 2019-02-09 22:30 | NUR ---
NURSE NOTES: Getting more restless, agitated. Called Dr Chambers for meds to relax pt. Ordered Ativan 0.5mg IVP q2 h PRN. Dose given
[2019-02-09] MEDS: LORazepam Inj 2mg/ml 1ml IV PRN (22:36)
[2019-02-09] MEDS: Morphine Sulfate 2mg/ml Inj(IV/IM USE ONLY) IVP PRN (23:43)
--- NOTE | 2019-02-09 23:45 | NUR ---
NURSE NOTES: More restless and agitated. c/o pain. Pt able to pull out NGT in the process. difficult to comfort. Called Dr Chambers again, ordered Morphine 2mg IV q2hr PRN. Restraints ordered. Dose given.
[2019-02-10] VITALS (23 sets, daily range): BP systolic 116–146; BP diastolic 50–93
--- NOTE | 2019-02-10 | NUR ---
NURSE NOTES: Still restless, bilat soft wrist restraints applied. Will reinsert NGT when pt settles. Afebrile, Tachycardic. Will continue to monitor
--- NOTE | 2019-02-10 00:45 | NUR ---
NURSE NOTES: Reinserted OGT at 60cm level. Placement verified with another RN. TF resumed
[2019-02-10] MEDS: LORazepam Inj 2mg/ml 1ml IV PRN (01:51)
--- NOTE | 2019-02-10 01:51 | NUR ---
NURSE NOTES: Awake and restless, agitated. Body arched and keeps sliding down. Repositioned. Ativan 0.5mg given IVP
--- NOTE | 2019-02-10 02:00 | Progress Note ---
DATE: 02/08/2019 CARDIOLOGY PROGRESS NOTE SUBJECTIVE: The patient has a Junior catheter placed. Dialysis is to be initiated. He remains in the intensive care unit, mechanical ventilator via endotracheal tube. OBJECTIVE: VITAL SIGNS: Blood pressure 154/68, heart rate 96-108, respiratory rate 26-30, temperature max 99.3. LUNGS: Bilateral rhonchi and rales. CARDIAC: Regular rhythm and rate. Normal S1, S2. ABDOMEN: Soft. EXTREMITIES: With dependent edema. LABORATORY DATA: White count 20, hemoglobin 9.9, platelets 144,000. Troponin 0.275. Sodium 145, potassium 2.3, bicarbonate 20, BUN 66, creatinine 6.5. Albumin 2.0. IMPRESSION: 1. Status post full arrest. 2. Acute on chronic renal failure. 3. Acute myocardial ischemia and possible ngt-FW-[place] infarction. 4. Shock liver. 5. Sepsis with shock. 6. Hypokalemia. 7. Acute metabolic acidosis. 8. Respiratory failure. PLAN: 1. Antimicrobials. 2. Ventilator support. 3. Hemodialysis. 4. Serial troponin. 5. Adjust potassium bath. 6. DVT prophylaxis. 7. The patient remains critical and guarded. Jamari Gale M.D. DR: Toma JOB#: [id number] CC:
[2019-02-10] MEDS: Albuterol/Ipratropium 3ml neb HHN SCH ×6 (03:08→23:01)
--- NOTE | 2019-02-10 03:30 | Progress Note ---
CARDIOLOGY PROGRESS NOTE SUBJECTIVE: The patient remains orally intubated and mechanically ventilated. He is status post hemodialysis via femoral Junior catheter. OBJECTIVE: VITAL SIGNS: Blood pressure 142/65, pulse 88, respirations 26, afebrile, orally intubated. Mechanically ventilated. LUNGS: Bilateral rales. CARDIAC: Regular rhythm and rate. Normal S1, S2. Fourth heart sound. ABDOMEN: Soft, right femoral catheter site clean and dry. EXTREMITIES: With trace edema. Distal pulses palpable. LABORATORY DATA: Sodium 140, potassium 3.6, bicarbonate 25, BUN 42, creatinine 4.6 white count 20 hemoglobin 9.4. IMPRESSION: 1. Sepsis with shock. 2. Respiratory failure. 3. Acute renal failure. 4. Hypokalemia acute myocardial ischemia and possible non-ST elevation infarction. 5. Acute on chronic diastolic congestive heart failure. 6. Status post full arrest. 7. Critical and guarded. PLAN: 1. Hemodialysis. 2. Ultrafiltration. 3. Potassium bath adjustment. 4. Ventilator support. 5. Weaning efforts. 6. Fluid removal with ultrafiltration. 7. Transfuse for hemoglobin less than 8 g. 8. Recheck troponin level. 9. He will need permanent dialysis access. 10. Hope to avoid resumption of pressors. Jamari Gale M.D. DR: ALEX JOB#: [id number] CC:
[2019-02-10] MEDS: Morphine Sulfate 2mg/ml Inj(IV/IM USE ONLY) IVP PRN ×3 (03:33→21:17)
--- NOTE | 2019-02-10 03:33 | NUR ---
NURSE NOTES: Remains restless and agitated. Awake, grimacing. Morphine 2 mg IVP given.
--- NOTE | 2019-02-10 05:12 | NUR ---
NURSE NOTES: Still mildly restless. Bathed, linen changed. Oral care and suctioning done. Right femoral dillan cath intact. Afebrile. Ghanshyam soft wrist restraints maintained. TF turned off, for weaning determination this AM
[2019-02-10] MEDS: NovoLOG Insulin Flexpen SUBQ SCH ×4 (05:54→23:55)
--- NOTE | 2019-02-10 06:39 | General Progress Note ---
Assessment/Plan Assessment/Plan: 1. History of COPD. 2. Coronary artery disease. 3. History of atrial fibrillation. 4. Hypertension. 5. Hyperlipidemia. 6. Diabetes. 7. Peripheral vascular disease with bilateral amputations. 8. Anemia. 9. GERD. 10. Constipation 11. dysphagia NGTF on hold for weaning respiratory care fu labs pending possible extubation Subjective ROS Limited/Unobtainable: No Allergies: Coded Allergies: No Known Allergies (Unverified , 09/25/17) Objective Last 24 Hour Vital Signs Date Time Temp Pulse Resp B/P (MAP) Pulse Ox O2 Delivery O2 Flow Rate FiO2 02/10/19 06:00 90 25 145/66 (92) 95 02/10/19 05:30 93 25 50 02/10/19 05:06 95 30 146/64 (91) 94 02/10/19 04:00 98.0 91 30 138/65 (89) 86 02/10/19 04:00 50 02/10/19 04:00 Mechanical Ventilator 02/10/19 04:00 95 02/10/19 03:17 94 27 99 Mechanical Ventilator 50 02/10/19 03:08 92 25 98 Mechanical Ventilator 50 02/10/19 03:08 92 24 50 02/10/19 03:00 92 25 137/93 (108) 94 02/10/19 02:00 91 25 135/56 (82) 97 02/10/19 01:00 94 26 135/53 (80) 99 02/10/19 00:53 101 24 50 02/10/19 00:00 50 02/10/19 00:00 100 02/10/19 00:00 Mechanical Ventilator 02/10/19 00:00 102 24 135/57 (83) 94 02/09/19 23:22 99 26 100 Mechanical Ventilator 50 02/09/19 23:08 98 26 50 02/09/19 23:07 98 25 100 Mechanical Ventilator 50 02/09/19 23:00 97 22 141/75 (97) 98 02/09/19 22:00 97 26 138/64 (88) 100 02/09/19 21:20 95 21 50 02/09/19 21:00 96 25 145/69 (94) 100 02/09/19 20:00 91 02/09/19 20:00 Mechanical Ventilator 02/09/19 20:00 50 02/09/19 20:00 97.8 97 23 155/61 (92) 98 02/09/19 19:25 98 16 100 Mechanical Ventilator 50 02/09/19 19:02 98 23 50 02/09/19 19:01 98 23 98 Mechanical Ventilator 50 02/09/19 19:00 96 22 151/69 (96) 100 02/09/19 18:00 96 22 151/65 (93) 99 02/09/19 17:23 103 29 50 02/09/19 17:00 50 02/09/19 17:00 97 24 150/69 (96) 100 02/09/19 16:00 Mechanical Ventilator 02/09/19 16:00 98.0 99 22 147/68 (94) 100 02/09/19 16:00 95 02/09/19 16:00 40 02/09/19 15:23 96 26 100 Mechanical Ventilator 40 02/09/19 15:21 90 26 40 02/09/19 15:14 93 26 100 Mechanical Ventilator 40 02/09/19 15:00 94 25 147/68 (94) 99 02/09/19 14:00 88 26 143/65 (91) 100 02/09/19 13:15 97 31 40 02/09/19 13:00 89 26 152/65 (94) 99 02/09/19 12:00 97.1 87 24 152/78 (102) 100 02/09/19 12:00 96 02/09/19 12:00 40 02/09/19 12:00 Mechanical Ventilator 02/09/19 11:08 Mechanical Ventilator 40 02/09/19 11:08 Mechanical Ventilator 40 02/09/19 11:00 95 30 40 02/09/19 11:00 96 20 151/58 (89) 99 02/09/19 10:00 96 24 145/60 (88) 93 02/09/19 09:00 92 23 151/86 (107) 94 02/09/19 08:35 91 27 40 02/09/19 08:00 95 02/09/19 08:00 97.5 92 23 143/61 (88) 97 02/09/19 08:00 40 02/09/19 08:00 Mechanical Ventilator 02/09/19 07:00 91 21 135/54 (81) 97 02/09/19 06:44 87 26 99 Mechanical Ventilator 40 02/09/19 06:42 93 28 40 Intake and Output 02/09/19 02/10/19 19:00 07:00 Intake Total 2060 ml 470 ml Output Total 2600 ml 550 ml Balance -540 ml -80 ml Free Water 100 ml 60 ml IV Total 1540 ml 60 ml Tube Feeding 420 ml 350 ml Output Urine Total 600 ml 550 ml Hemodialysis UF 2000 ml # Bowel Movements 5 Laboratory Tests 02/09/19 15:25: Stool Occult Blood [Pending] 02/09/19 16:10: White Blood Count 20.4H, Red Blood Count 3.16L, Hemoglobin 9.4L, Hematocrit 27.2L, Mean Corpuscular Volume 86, Mean Corpuscular Hemoglobin 29.8, Mean Corpuscular Hemoglobin Concent 34.7, Red Cell Distribution Width 13.8, Platelet Count 110L, Mean Platelet Volume 10.1, Neutrophils (%) (Auto) , Lymphocytes (%) (Auto) , Monocytes (%) (Auto) , Eosinophils (%) (Auto) , Basophils (%) (Auto) , Differential Total Cells Counted 100, Neutrophils % (Manual) 82H, Lymphocytes % (Manual) 10L, Monocytes % (Manual) 6, Eosinophils % (Manual) 2, Basophils % ( Manual) 0, Band Neutrophils 0, Platelet Estimate DecreasedL, Platelet Morphology Normal, Red Blood Cell Morphology Normal, Sodium Level 140, Potassium Level 2.6*L, Chloride Level 103, Carbon Dioxide Level 25, Anion Gap 13 , Blood Urea Nitrogen 42H, Creatinine 4.6H, Estimat Glomerular Filtration Rate 12.8, Glucose Level 331#H, Calcium Level 7.0L Height (Feet): 5 Height (Inches): 3.00 Weight (Pounds): 131 General Appearance: lethargic EENT: PERRL/EOMI Neck: supple Cardiovascular: normal rate Respiratory/Chest: decreased breath sounds Abdomen: normal bowel sounds, non tender, soft Extremities: non-tender Kelvin Andrew MD Feb 10, 2019 06:39
[2019-02-10 07:06] LABS: HEMATOCRIT 27.1 % (42.0-52.0); HEMOGLOBIN 9.1 G/DL (14.2-18.0); MEAN CORPUSCULAR VOLUME 88 FL (80-99); PLATELET COUNT 109 K/UL (150-450); RED BLOOD COUNT 3.07 M/UL (4.70-6.10); RED CELL DISTRIBUTION WIDTH 14.3 % (11.6-14.8); WHITE BLOOD COUNT 18.3 K/UL (4.8-10.8)
--- NOTE | 2019-02-10 07:17 | NUR ---
RESPIRATORY NOTE: Received pt on MF-61-110cm-50%-peep 5. Pt was orally intubated with ETT 7.5 @ 23cm lips line. Duoneb breathing TX given without adverse reactions. Ghanshyam rhonchi diminished breath sounds hear upon auscultation, suctioned small amounts of thick brown secretions without incidents. Placed pt on CPAP PS 8, peep 5, 50%FiO2 per Dr. Chambers's order. Pt id tolerating well the setting but really agitated and restless. Pt has been trying to pull out the tube so many times even though he has ghanshyam wrist bands. Vent circuits and suction tubing are secured and out of the way. Alarms are set and audible, vent is plugged into the red outlet, ambu bag is at bed side. YU Kauffman and YU Pandya made aware. No ABG order. Will continue to monitor.
[2019-02-10 07:18] LABS: ANION GAP 13 mmol/L (5-15); BLOOD UREA NITROGEN 50 mg/dL (7-18); CARBON DIOXIDE 27 MMOL/L (21-32); CHLORIDE 107 MMOL/L (98-107); CREATININE 5.1 MG/DL (0.55-1.30); SODIUM 146 MMOL/L (136-145)
--- NOTE | 2019-02-10 07:22 | NUR ---
HAND-OFF: Report given to Blaise Faye RN.
[2019-02-10 07:28] LABS: POTASSIUM 2.4 MMOL/L (3.5-5.1)
--- NOTE | 2019-02-10 07:30 | NUR ---
NURSE NOTES: Patient report recived from YU Pandya. patient placed on Cpap with PS of 8 with no distress noted on FIo2 of 30%. he is noted to be restless and uncomforted with verbal or repositioning, he remain son restraints with no skin tears noted on arms. placed on restraint by previous shift for reaching towards Et-tube, Suprapubic catheter is draining clear urine with no leaking at insertion site, patient tube feeding is placed on hold for weaning protocol. patient repositioned and gown changed, and body cleaned with soap.
--- NOTE | 2019-02-10 09:30 | NUR ---
NURSE NOTES: Dr. Madsen at the bedside assessing patient and updated on patient status and decreasing WBC count, no verbal orders given at this time.
--- NOTE | 2019-02-10 09:51 | Hematology/Onc Progress Note ---
Assessment/Plan Assessment/Plan Assessment and Recs: # Anemia of chronic disease due to underlying chronic medical issues, multifactorial --> Anemia workup has been ordered, rule out gi bleed --> No evidence of hemolysis is noted, peripheral smear has been reviewed. --> Hgb goal >7. Transfuse prn. --> Epogen and iron both started given ckd, ferritin only 274 (needs to be >500 for esrd pts) --> Medications have been reviewed --> low threshold for gi evaluation in case has occult + # Leukocytosis/elevated white blood cell count, unspecified likely related to underlying stress reaction, pna, ARDS --> have reviewed peripheral smear and bandemia/neutrophilia noted --> continue antibiotics if they have been started by ID team --> 23-->17-->20k-->18k # Thrombocytopenia - potential causes multifactorial, evaluate liver and viral etiologies to begin, also could be related to underlying medications patient has received. may be due to Hep C++ (need to confirm) --> Hep panel and HIV is negative --> US abd to evaluate for cirrhosis with trace ascites --> Peripheral smear ordered to evaluate for blasts /schistocytes --> abx and other meds have been reviewed --> ok for ppx if plt >50k w/ either heparin or lovenox # Respiratory distress with ards --> has been intubated, on a vent --> as per pulm recs -> vent adjustment per pulm # Chronic Obstructive Pulmonary Disease with exacerbation --> breathing treatments on prn basis # Pneumonia --> on abx per id # ESRD - STARTED HD via femoral Junior. ++ PermaCath + AVF. --> hd per renal # Elevated troponin --> per cards, r/o acs # Bilateral amputations # GERD # ETOH abuse The timing of this note does not necessarily reflect the time of the patient was seen. Greatly appreciate consultation! Subjective Constitutional: Denies: no symptoms, chills, fever, malaise, weakness, other HEENT: Denies: no symptoms, eye pain, blurred vision, tearing, double vision, ear pain, ear discharge, nose pain, nose congestion, throat pain, throat swelling, mouth pain, mouth swelling, other Cardiovascular: Denies: no symptoms, chest pain, edema, irregular heart rate, lightheadedness, palpitations, syncope, other Gastrointestinal/Abdominal: Denies: no symptoms, abdomen distended, abdominal pain, black stools, tarry stools, blood in stool, constipated, diarrhea, difficulty swallowing, nausea, poor appetite, poor fluid intake, rectal bleeding , vomiting, other Genitourinary: Denies: no symptoms, burning, discharge, frequency, flank pain, hematuria, incontinence, pain, urgency, other Neurologic/Psychiatric: Denies: no symptoms, anxiety, depressed, emotional problems, headache, numbness, paresthesia, pre-existing deficit, seizure, tingling, tremors, weakness, other Allergies: Coded Allergies: No Known Allergies (Unverified , 09/25/17) Subjective 02/08: is on jose and vanc, broad spectrum abx, no f/c, vent adjusted per pulm 02/10: given k, remains on vent, in icu, vent weaning pending Objective Objective Current Medications Medications (Trade) Dose Ordered Sig/Joe Route PRN Reason Start Time Stop Time Status Last Admin Dose Admin Acetaminophen (Tylenol) 650 mg Q4H PRN ORAL Mild Pain/Temp > 100.5 02/06/19 05:45 03/08/19 05:44 Al Hydroxide/Mg Hydroxide (Mylanta) 30 ml PRN ORAL 02/06/19 05:45 03/08/19 05:44 Albuterol/ Ipratropium (Albuterol/ Ipratropium) 3 ml Q4HRT HHN 02/06/19 15:00 02/11/19 14:59 02/10/19 07:07 Chlorhexidine Gluconate (Falguni-Hex 2%) 1 applic DAILY@1999 TOPIC 02/06/19 20:00 03/08/19 19:59 02/09/19 20:43 Dextrose (Dextrose 50%) 25 ml Q30M PRN IV Hypoglycemia 02/06/19 11:30 03/08/19 11:29 Dextrose (Dextrose 50%) 50 ml Q30M PRN IV Hypoglycemia 02/06/19 11:30 03/08/19 11:29 Epoetin Mayo (Epoetin Mayo(ESRD on dialysis)) 10,000 unit MON-MON-MON SUBQ 02/06/19 21:00 03/08/19 20:59 02/08/19 20:44 Heparin Sodium (Porcine) (Heparin 5000 units/ml) 5,000 units EVERY 12 HOURS SUBQ 02/06/19 09:00 03/08/19 08:59 02/09/19 09:52 Insulin Aspart (NovoLOG) Q6HR SUBQ 02/06/19 12:00 03/08/19 11:59 02/10/19 05:54 Iron Sucrose 100 mg/Sodium Chloride 60 ml @ 240 mls/hr BEDTIME IV 02/06/19 21:00 02/10/19 21:14 02/09/19 20:43 Lansoprazole (Prevacid) 30 mg DAILY NG 02/06/19 09:00 03/08/19 08:59 02/09/19 09:51 Lorazepam (Ativan 2mg/ml 1ml) 0.5 mg Q2H PRN IV For Anxiety 02/09/19 22:15 02/16/19 22:14 02/10/19 01:51 Meropenem 500 mg/ Sodium Chloride 55 ml @ 110 mls/hr DAILY IVPB 02/06/19 13:00 02/11/19 12:59 02/09/19 09:51 Morphine Sulfate (Morphine Sulfate) 2 mg Q2H PRN IVP For Pain 02/09/19 23:45 02/16/19 23:44 02/10/19 03:33 Potassium Chloride 100 ml @ 50 mls/hr ONCE ONCE IVPB 02/10/19 10:00 02/10/19 11:59 UNV Potassium Chloride (K-Dur) 40 meq ONCE ONCE ORAL 02/10/19 10:00 02/10/19 10:01 UNV Vancomycin HCl (Vanco rx to dose) 1 ea DAILY PRN MISC Per rx protocol 02/08/19 11:15 03/10/19 11:14 Last 24 Hour Vital Signs Date Time Temp Pulse Resp B/P (MAP) Pulse Ox O2 Delivery O2 Flow Rate FiO2 02/10/19 09:06 95 29 50 02/10/19 08:00 50 02/10/19 08:00 100.3 94 27 122/50 (74) 93 02/10/19 07:17 100 29 50 50 02/10/19 07:16 93 31 98 Mechanical Ventilator 50 02/10/19 07:15 96 02/10/19 07:08 85 26 97 Mechanical Ventilator 50 02/10/19 07:00 90 25 135/57 (83) 95 02/10/19 06:00 90 25 145/66 (92) 95 02/10/19 05:30 93 25 50 02/10/19 05:06 95 30 146/64 (91) 94 02/10/19 04:00 98.0 91 30 138/65 (89) 86 02/10/19 04:00 50 02/10/19 04:00 Mechanical Ventilator 02/10/19 04:00 95 02/10/19 03:17 94 27 99 Mechanical Ventilator 50 02/10/19 03:08 92 25 98 Mechanical Ventilator 50 02/10/19 03:08 92 24 50 02/10/19 03:00 92 25 137/93 (108) 94 02/10/19 02:00 91 25 135/56 (82) 97 02/10/19 01:00 94 26 135/53 (80) 99 02/10/19 00:53 101 24 50 02/10/19 00:00 50 02/10/19 00:00 100 02/10/19 00:00 Mechanical Ventilator 02/10/19 00:00 102 24 135/57 (83) 94 02/09/19 23:22 99 26 100 Mechanical Ventilator 50 02/09/19 23:08 98 26 50 02/09/19 23:07 98 25 100 Mechanical Ventilator 50 02/09/19 23:00 97 22 141/75 (97) 98 02/09/19 22:00 97 26 138/64 (88) 100 02/09/19 21:20 95 21 50 02/09/19 21:00 96 25 145/69 (94) 100 02/09/19 20:00 91 02/09/19 20:00 Mechanical Ventilator 02/09/19 20:00 50 02/09/19 20:00 97.8 97 23 155/61 (92) 98 02/09/19 19:25 98 16 100 Mechanical Ventilator 50 02/09/19 19:02 98 23 50 02/09/19 19:01 98 23 98 Mechanical Ventilator 50 02/09/19 19:00 96 22 151/69 (96) 100 02/09/19 18:00 96 22 151/65 (93) 99 02/09/19 17:23 103 29 50 02/09/19 17:00 50 02/09/19 17:00 97 24 150/69 (96) 100 02/09/19 16:00 Mechanical Ventilator 02/09/19 16:00 98.0 99 22 147/68 (94) 100 02/09/19 16:00 95 02/09/19 16:00 40 02/09/19 15:23 96 26 100 Mechanical Ventilator 40 02/09/19 15:21 90 26 40 02/09/19 15:14 93 26 100 Mechanical Ventilator 40 02/09/19 15:00 94 25 147/68 (94) 99 02/09/19 14:00 88 26 143/65 (91) 100 02/09/19 13:15 97 31 40 02/09/19 13:00 89 26 152/65 (94) 99 02/09/19 12:00 97.1 87 24 152/78 (102) 100 02/09/19 12:00 96 02/09/19 12:00 40 02/09/19 12:00 Mechanical Ventilator 02/09/19 11:08 Mechanical Ventilator 40 02/09/19 11:08 Mechanical Ventilator 40 02/09/19 11:00 95 30 40 02/09/19 11:00 96 20 151/58 (89) 99 02/09/19 10:00 96 24 145/60 (88) 93 02/09/19 09:00 92 23 151/86 (107) 94 02/09/19 08:35 91 27 40 02/09/19 08:00 95 02/09/19 08:00 97.5 92 23 143/61 (88) 97 02/09/19 08:00 40 02/09/19 08:00 Mechanical Ventilator 02/09/19 07:00 91 21 135/54 (81) 97 02/09/19 06:44 87 26 99 Mechanical Ventilator 40 02/09/19 06:42 93 28 40 02/09/19 06:35 88 26 96 Mechanical Ventilator 40 02/09/19 06:00 86 23 142/60 (87) 97 02/09/19 05:25 85 24 40 02/09/19 05:00 89 20 138/52 (80) 97 02/09/19 04:00 98.3 85 23 155/68 (97) 99 02/09/19 04:00 Mechanical Ventilator 02/09/19 04:00 85 02/09/19 04:00 40 02/09/19 03:34 82 26 98 Mechanical Ventilator 40 02/09/19 03:25 83 26 99 Mechanical Ventilator 40 02/09/19 03:25 83 26 40 02/09/19 03:00 83 23 160/68 (98) 99 02/09/19 02:00 83 23 151/67 (95) 99 02/09/19 01:00 84 26 164/67 (99) 99 02/09/19 00:45 87 27 40 02/09/19 00:00 99.1 87 25 156/66 (96) 99 02/09/19 00:00 87 02/09/19 00:00 40 02/09/19 00:00 Mechanical Ventilator 02/08/19 23:16 85 26 99 Mechanical Ventilator 40 02/08/19 23:05 86 26 94 Mechanical Ventilator 40 02/08/19 23:04 86 26 40 02/08/19 23:00 87 26 155/65 (95) 98 02/08/19 22:00 86 22 131/59 (83) 98 02/08/19 21:17 90 26 40 02/08/19 21:00 91 26 158/62 (94) 96 02/08/19 20:00 93 02/08/19 20:00 Mechanical Ventilator 02/08/19 20:00 98.7 93 23 157/82 (107) 99 02/08/19 20:00 40 02/08/19 19:30 93 26 99 Mechanical Ventilator 40 02/08/19 19:20 89 26 40 02/08/19 19:20 88 26 98 Mechanical Ventilator 40 02/08/19 19:00 94 25 157/64 (95) 97 02/08/19 18:00 97 17 146/75 (98) 92 02/08/19 17:19 100 27 40 02/08/19 17:00 95 26 161/64 (96) 97 02/08/19 16:00 Mechanical Ventilator 02/08/19 16:00 100 02/08/19 16:00 97 02/08/19 16:00 99.1 100 25 160/67 (98) 95 02/08/19 16:00 40 02/08/19 15:00 100 26 166/67 (100) 97 02/08/19 14:58 103 24 98 Mechanical Ventilator 40 02/08/19 14:44 104 29 40 02/08/19 14:44 103 26 100 Mechanical Ventilator 40 02/08/19 14:00 105 24 159/65 (96) 96 02/08/19 13:21 108 30 40 02/08/19 13:00 106 24 158/91 (113) 97 02/08/19 12:00 98.0 99 26 166/69 (101) 98 02/08/19 12:00 99 02/08/19 12:00 40 02/08/19 12:00 Mechanical Ventilator 02/08/19 12:00 94 02/08/19 11:19 103 27 100 Mechanical Ventilator 40 02/08/19 11:03 101 26 91 Mechanical Ventilator 40 02/08/19 11:03 101 29 40 02/08/19 11:00 98 26 154/68 (96) 100 02/08/19 10:30 26 Non-Rebreather 40 02/08/19 10:00 94 26 156/65 (95) 100 Intake and Output 02/09/19 02/10/19 18:59 06:59 Intake Total 2120 ml 505 ml Output Total 2600 ml 600 ml Balance -480 ml -95 ml Free Water 100 ml 60 ml IV Total 1600 ml 60 ml Tube Feeding 420 ml 385 ml Output Urine Total 600 ml 600 ml Hemodialysis UF 2000 ml # Bowel Movements 2 3 Labs Test 02/08/19 03:50 02/08/19 17:10 02/09/19 04:30 02/09/19 15:25 White Blood Count 20.4 K/UL (4.8-10.8) 23.4 K/UL (4.8-10.8) Red Blood Count 3.37 M/UL (4.70-6.10) 3.29 M/UL (4.70-6.10) Hemoglobin 9.9 G/DL (14.2-18.0) 9.5 G/DL (14.2-18.0) Hematocrit 29.3 % (42.0-52.0) 28.8 % (42.0-52.0) Mean Corpuscular Volume 87 FL (80-99) 87 FL (80-99) Mean Corpuscular Hemoglobin 29.3 PG (27.0-31.0) 28.9 PG (27.0-31.0) Mean Corpuscular Hemoglobin Concent 33.7 G/DL (32.0-36.0) 33.1 G/DL (32.0-36.0) Red Cell Distribution Width 14.0 % (11.6-14.8) 14.1 % (11.6-14.8) Platelet Count 144 K/UL (150-450) 114 K/UL (150-450) Mean Platelet Volume 9.0 FL (6.5-10.1) 9.1 FL (6.5-10.1) Neutrophils (%) (Auto) % (45.0-75.0) % (45.0-75.0) Lymphocytes (%) (Auto) % (20.0-45.0) % (20.0-45.0) Monocytes (%) (Auto) % (1.0-10.0) % (1.0-10.0) Eosinophils (%) (Auto) % (0.0-3.0) % (0.0-3.0) Basophils (%) (Auto) % (0.0-2.0) % (0.0-2.0) Differential Total Cells Counted 100 100 Neutrophils % (Manual) 96 % (45-75) 85 % (45-75) Lymphocytes % (Manual) 2 % (20-45) 10 % (20-45) Monocytes % (Manual) 2 % (1-10) 4 % (1-10) Eosinophils % (Manual) 0 % (0-3) 1 % (0-3) Basophils % (Manual) 0 % (0-2) 0 % (0-2) Band Neutrophils 0 % (0-8) 0 % (0-8) Nucleated Red Blood Cells 3 /100 WBC 1 /100 WBC Platelet Estimate Decreased Decreased Platelet Morphology Normal Normal Hypochromasia 2+ 2+ Anisocytosis 1+ 1+ Prothrombin Time 11.0 SEC (9.30-11.50) Prothromb Time International Ratio 1.0 (0.9-1.1) Sodium Level 145 MMOL/L (136-145) 146 MMOL/L (136-145) Potassium Level 2.3 MMOL/L (3.5-5.1) 2.2 MMOL/L (3.5-5.1) Chloride Level 106 MMOL/L (98-107) 106 MMOL/L (98-107) Carbon Dioxide Level 20 MMOL/L (21-32) 30 MMOL/L (21-32) Anion Gap 19 mmol/L (5-15) 10 mmol/L (5-15) Blood Urea Nitrogen 66 mg/dL (7-18) 65 mg/dL (7-18) Creatinine 6.5 MG/DL (0.55-1.30) 6.6 MG/DL (0.55-1.30) Estimat Glomerular Filtration Rate 8.6 mL/min (>60) 8.4 mL/min (>60) Glucose Level 389 MG/DL (74-106) 128 MG/DL (74-106) Hemoglobin A1c 6.3 % (4.3-6.0) Calcium Level 7.3 MG/DL (8.5-10.1) 7.4 MG/DL (8.5-10.1) Iron Level 174 ug/dL (50-175) Total Iron Binding Capacity 220 ug/dL (250-450) Percent Iron Saturation 79 % (15-50) Unsaturated Iron Binding 46 ug/dL (112-346) Ferritin 274 NG/ML (8-388) Total Bilirubin 0.7 MG/DL (0.2-1.0) Aspartate Amino Transf (AST/SGOT) 48 U/L (15-37) Alanine Aminotransferase (ALT/SGPT) 110 U/L (12-78) Alkaline Phosphatase 98 U/L (46-116) Troponin I 0.275 ng/mL (0.000-0.056) Total Protein 6.1 G/DL (6.4-8.2) Albumin 2.0 G/DL (3.4-5.0) Globulin 4.1 g/dL Albumin/Globulin Ratio 0.5 (1.0-2.7) Amylase Level 41 U/L (25-115) Lipase 201 U/L (73-393) Folate 12.6 NG/ML (8.6-58.9) Lactic Acid Level 1.90 mmol/L (0.4-2.0) Spherocytes 1+ Random Vancomycin Level 27.0 ug/mL Test 02/09/19 16:10 02/10/19 04:57 White Blood Count 20.4 K/UL (4.8-10.8) 18.3 K/UL (4.8-10.8) Red Blood Count 3.16 M/UL (4.70-6.10) 3.07 M/UL (4.70-6.10) Hemoglobin 9.4 G/DL (14.2-18.0) 9.1 G/DL (14.2-18.0) Hematocrit 27.2 % (42.0-52.0) 27.1 % (42.0-52.0) Mean Corpuscular Volume 86 FL (80-99) 88 FL (80-99) Mean Corpuscular Hemoglobin 29.8 PG (27.0-31.0) 29.6 PG (27.0-31.0) Mean Corpuscular Hemoglobin Concent 34.7 G/DL (32.0-36.0) 33.5 G/DL (32.0-36.0) Red Cell Distribution Width 13.8 % (11.6-14.8) 14.3 % (11.6-14.8) Platelet Count 110 K/UL (150-450) 109 K/UL (150-450) Mean Platelet Volume 10.1 FL (6.5-10.1) 9.6 FL (6.5-10.1) Neutrophils (%) (Auto) % (45.0-75.0) % (45.0-75.0) Lymphocytes (%) (Auto) % (20.0-45.0) % (20.0-45.0) Monocytes (%) (Auto) % (1.0-10.0) % (1.0-10.0) Eosinophils (%) (Auto) % (0.0-3.0) % (0.0-3.0) Basophils (%) (Auto) % (0.0-2.0) % (0.0-2.0) Differential Total Cells Counted 100 100 Neutrophils % (Manual) 82 % (45-75) 85 % (45-75) Lymphocytes % (Manual) 10 % (20-45) 7 % (20-45) Monocytes % (Manual) 6 % (1-10) 7 % (1-10) Eosinophils % (Manual) 2 % (0-3) 1 % (0-3) Basophils % (Manual) 0 % (0-2) 0 % (0-2) Band Neutrophils 0 % (0-8) 0 % (0-8) Platelet Estimate Decreased Decreased Platelet Morphology Normal Normal Red Blood Cell Morphology Normal Sodium Level 140 MMOL/L (136-145) 146 MMOL/L (136-145) Potassium Level 2.6 MMOL/L (3.5-5.1) 2.4 MMOL/L (3.5-5.1) Chloride Level 103 MMOL/L (98-107) 107 MMOL/L (98-107) Carbon Dioxide Level 25 MMOL/L (21-32) 27 MMOL/L (21-32) Anion Gap 13 mmol/L (5-15) 13 mmol/L (5-15) Blood Urea Nitrogen 42 mg/dL (7-18) 50 mg/dL (7-18) Creatinine 4.6 MG/DL (0.55-1.30) 5.1 MG/DL (0.55-1.30) Estimat Glomerular Filtration Rate 12.8 mL/min (>60) 11.4 mL/min (>60) Glucose Level 331 MG/DL (74-106) 198 MG/DL (74-106) Calcium Level 7.0 MG/DL (8.5-10.1) 7.0 MG/DL (8.5-10.1) Polychromasia 1+ Hypochromasia 1+ Anisocytosis 1+ Troponin I 0.261 ng/mL (0.000-0.056) Pro-B-Type Natriuretic Peptide > 60658 pg/mL (0-125) Height (Feet): 5 Height (Inches): 3.00 Weight (Pounds): 131 Objective PE Gen: fatigued, on mechanical Ventilator Head: normocephalic, atraumatic, ETT, OGT Eyes: bilateral eye PERRL, b/l eye EOMI Respiratory: Bilateral wheezing, rhonchi ++ vent Cardiovascular: normal heart sound, normal peripheral pulses, rrr GI: non tender, soft, no guarding, no rebound ++ peg Msk normal inspection Neuro: sedated, no focal signs Skin: no rash, warm/dry Nicho Rebolledo MD Feb 10, 2019 09:51
[2019-02-10] MEDS: Meropenem 500 MG in NS 55 ML IVPB SCH (10:08)
[2019-02-10] MEDS: Heparin 5000 units/ml inj SUBQ SCH ×2 (10:11→21:02)
--- NOTE | 2019-02-10 10:28 | Infectious Diseases Prog Note ---
Assessment/Plan Assessment/Plan A; Pneumonia Acute respiratory failure DM with hyperglycemia CKD, acute renal failure Anemia Decreased albumin PAF Elevated troponin Diarrhea VRE carrier P; Discontinue Vancomycin Continue Meropenem Stool for C. difficile if diarrhea persists Will f/u cultures Subjective ROS Limited/Unobtainable: Yes Constitutional: Reports: fever, other - low grade Respiratory: Reports: other - on weaning process Gastrointestinal/Abdominal: Reports: diarrhea Neurologic: Reports: confusion, other - on restraint Allergies: Coded Allergies: No Known Allergies (Unverified , 09/25/17) Objective Vital Signs Last 24 Hour Vital Signs Date Time Temp Pulse Resp B/P (MAP) Pulse Ox O2 Delivery O2 Flow Rate FiO2 02/10/19 09:06 95 29 50 02/10/19 08:00 50 02/10/19 08:00 100.3 94 27 122/50 (74) 93 02/10/19 07:17 100 29 50 50 02/10/19 07:16 93 31 98 Mechanical Ventilator 50 02/10/19 07:15 96 02/10/19 07:08 85 26 97 Mechanical Ventilator 50 02/10/19 07:00 90 25 135/57 (83) 95 02/10/19 06:00 90 25 145/66 (92) 95 02/10/19 05:30 93 25 50 02/10/19 05:06 95 30 146/64 (91) 94 02/10/19 04:00 98.0 91 30 138/65 (89) 86 02/10/19 04:00 50 02/10/19 04:00 Mechanical Ventilator 02/10/19 04:00 95 02/10/19 03:17 94 27 99 Mechanical Ventilator 50 02/10/19 03:08 92 25 98 Mechanical Ventilator 50 02/10/19 03:08 92 24 50 02/10/19 03:00 92 25 137/93 (108) 94 02/10/19 02:00 91 25 135/56 (82) 97 02/10/19 01:00 94 26 135/53 (80) 99 02/10/19 00:53 101 24 50 02/10/19 00:00 50 02/10/19 00:00 100 02/10/19 00:00 Mechanical Ventilator 02/10/19 00:00 102 24 135/57 (83) 94 02/09/19 23:22 99 26 100 Mechanical Ventilator 50 02/09/19 23:08 98 26 50 02/09/19 23:07 98 25 100 Mechanical Ventilator 50 02/09/19 23:00 97 22 141/75 (97) 98 02/09/19 22:00 97 26 138/64 (88) 100 02/09/19 21:20 95 21 50 02/09/19 21:00 96 25 145/69 (94) 100 02/09/19 20:00 91 02/09/19 20:00 Mechanical Ventilator 02/09/19 20:00 50 02/09/19 20:00 97.8 97 23 155/61 (92) 98 02/09/19 19:25 98 16 100 Mechanical Ventilator 50 02/09/19 19:02 98 23 50 02/09/19 19:01 98 23 98 Mechanical Ventilator 50 02/09/19 19:00 96 22 151/69 (96) 100 02/09/19 18:00 96 22 151/65 (93) 99 02/09/19 17:23 103 29 50 02/09/19 17:00 50 02/09/19 17:00 97 24 150/69 (96) 100 02/09/19 16:00 Mechanical Ventilator 02/09/19 16:00 98.0 99 22 147/68 (94) 100 02/09/19 16:00 95 02/09/19 16:00 40 02/09/19 15:23 96 26 100 Mechanical Ventilator 40 02/09/19 15:21 90 26 40 02/09/19 15:14 93 26 100 Mechanical Ventilator 40 02/09/19 15:00 94 25 147/68 (94) 99 02/09/19 14:00 88 26 143/65 (91) 100 02/09/19 13:15 97 31 40 02/09/19 13:00 89 26 152/65 (94) 99 02/09/19 12:00 97.1 87 24 152/78 (102) 100 02/09/19 12:00 96 02/09/19 12:00 40 02/09/19 12:00 Mechanical Ventilator 02/09/19 11:08 Mechanical Ventilator 40 02/09/19 11:08 Mechanical Ventilator 40 02/09/19 11:00 95 30 40 02/09/19 11:00 96 20 151/58 (89) 99 Height (Feet): 5 Height (Inches): 3.00 Weight (Pounds): 131 General Appearance: no acute distress HEENT: other - orally intubated Respiratory/Chest: lungs clear, other - on ventilator Cardiovascular: normal rate Abdomen: soft, non tender, other - orogastric tube Genitourinary: other - suprapubic catheter Extremities: no edema, other - bilateral BKA Neurologic/Psychiatric: unresponsiveness Microbiology Date/Time Source Procedure Growth Status 02/09/19 08:30 Sputum Gram Stain - Final Resulted 02/09/19 08:30 Sputum Sputum Culture - Preliminary NORMAL UPPER RESPIRATORY YULY AT 24 ... Resulted Laboratory Tests Test 02/09/19 15:25 02/09/19 16:10 02/10/19 04:57 Stool Occult Blood Pending White Blood Count 20.4 K/UL (4.8-10.8) H 18.3 K/UL (4.8-10.8) H Red Blood Count 3.16 M/UL (4.70-6.10) L 3.07 M/UL (4.70-6.10) L Hemoglobin 9.4 G/DL (14.2-18.0) L 9.1 G/DL (14.2-18.0) L Hematocrit 27.2 % (42.0-52.0) L 27.1 % (42.0-52.0) L Mean Corpuscular Volume 86 FL (80-99) 88 FL (80-99) Mean Corpuscular Hemoglobin 29.8 PG (27.0-31.0) 29.6 PG (27.0-31.0) Mean Corpuscular Hemoglobin Concent 34.7 G/DL (32.0-36.0) 33.5 G/DL (32.0-36.0) Red Cell Distribution Width 13.8 % (11.6-14.8) 14.3 % (11.6-14.8) Platelet Count 110 K/UL (150-450) L 109 K/UL (150-450) L Mean Platelet Volume 10.1 FL (6.5-10.1) 9.6 FL (6.5-10.1) Neutrophils (%) (Auto) % (45.0-75.0) % (45.0-75.0) Lymphocytes (%) (Auto) % (20.0-45.0) % (20.0-45.0) Monocytes (%) (Auto) % (1.0-10.0) % (1.0-10.0) Eosinophils (%) (Auto) % (0.0-3.0) % (0.0-3.0) Basophils (%) (Auto) % (0.0-2.0) % (0.0-2.0) Differential Total Cells Counted 100 100 Neutrophils % (Manual) 82 % (45-75) H 85 % (45-75) H Lymphocytes % (Manual) 10 % (20-45) L 7 % (20-45) L Monocytes % (Manual) 6 % (1-10) 7 % (1-10) Eosinophils % (Manual) 2 % (0-3) 1 % (0-3) Basophils % (Manual) 0 % (0-2) 0 % (0-2) Band Neutrophils 0 % (0-8) 0 % (0-8) Platelet Estimate Decreased L Decreased L Platelet Morphology Normal Normal Red Blood Cell Morphology Normal Sodium Level 140 MMOL/L (136-145) 146 MMOL/L (136-145) H Potassium Level 2.6 MMOL/L (3.5-5.1) *L 2.4 MMOL/L (3.5-5.1) *L Chloride Level 103 MMOL/L (98-107) 107 MMOL/L (98-107) Carbon Dioxide Level 25 MMOL/L (21-32) 27 MMOL/L (21-32) Anion Gap 13 mmol/L (5-15) 13 mmol/L (5-15) Blood Urea Nitrogen 42 mg/dL (7-18) H 50 mg/dL (7-18) H Creatinine 4.6 MG/DL (0.55-1.30) H 5.1 MG/DL (0.55-1.30) H Estimat Glomerular Filtration Rate 12.8 mL/min (>60) 11.4 mL/min (>60) Glucose Level 331 MG/DL (74-106) #H 198 MG/DL (74-106) #H Calcium Level 7.0 MG/DL (8.5-10.1) L 7.0 MG/DL (8.5-10.1) L Polychromasia 1+ Hypochromasia 1+ Anisocytosis 1+ Troponin I 0.261 ng/mL (0.000-0.056) Pro-B-Type Natriuretic Peptide > 10404 pg/mL (0-125) H Current Medications Medications (Trade) Dose Ordered Sig/Joe Route PRN Reason Start Time Stop Time Status Last Admin Dose Admin Acetaminophen (Tylenol) 650 mg Q4H PRN ORAL Mild Pain/Temp > 100.5 02/06/19 05:45 03/08/19 05:44 Al Hydroxide/Mg Hydroxide (Mylanta) 30 ml PRN ORAL 02/06/19 05:45 03/08/19 05:44 Albuterol/ Ipratropium (Albuterol/ Ipratropium) 3 ml Q4HRT HHN 02/06/19 15:00 02/11/19 14:59 02/10/19 07:07 Chlorhexidine Gluconate (Falguni-Hex 2%) 1 applic DAILY@2000 TOPIC 02/06/19 20:00 03/08/19 19:59 02/09/19 20:43 Dextrose (Dextrose 50%) 25 ml Q30M PRN IV Hypoglycemia 02/06/19 11:30 03/08/19 11:29 Dextrose (Dextrose 50%) 50 ml Q30M PRN IV Hypoglycemia 02/06/19 11:30 03/08/19 11:29 Epoetin Mayo (Epoetin Mayo(ESRD on dialysis)) 10,000 unit MON-MON-MON SUBQ 02/06/19 21:00 03/08/19 20:59 02/08/19 20:44 Heparin Sodium (Porcine) (Heparin 5000 units/ml) 5,000 units EVERY 12 HOURS SUBQ 02/06/19 09:00 03/08/19 08:59 02/10/19 10:11 Insulin Aspart (NovoLOG) Q6HR SUBQ 02/06/19 12:00 03/08/19 11:59 02/10/19 05:54 Iron Sucrose 100 mg/Sodium Chloride 60 ml @ 240 mls/hr BEDTIME IV 02/06/19 21:00 02/10/19 21:14 02/09/19 20:43 Lansoprazole (Prevacid) 30 mg DAILY NG 02/06/19 09:00 03/08/19 08:59 02/10/19 10:09 Lorazepam (Ativan 2mg/ml 1ml) 0.5 mg Q2H PRN IV For Anxiety 02/09/19 22:15 02/16/19 22:14 02/10/19 01:51 Meropenem 500 mg/ Sodium Chloride 55 ml @ 110 mls/hr DAILY IVPB 02/06/19 13:00 02/11/19 12:59 02/10/19 10:08 Morphine Sulfate (Morphine Sulfate) 2 mg Q2H PRN IVP For Pain 02/09/19 23:45 02/16/19 23:44 02/10/19 03:33 Potassium Chloride 100 ml @ 50 mls/hr Q2H IVPB 02/10/19 10:00 02/10/19 13:59 02/10/19 10:08 Potassium Chloride (K-Dur) 40 meq ONCE ORAL 02/10/19 10:00 02/10/19 11:00 02/10/19 10:08 Vancomycin HCl (Vanco rx to dose) 1 ea DAILY PRN MISC Per rx protocol 02/08/19 11:15 03/10/19 11:14 Emir Madsen MD Feb 10, 2019 10:27
--- NOTE | 2019-02-10 12:30 | NUR ---
NURSE NOTES: Accu check taken at this bedside, resulted at 171 and 4 units given for coverage, patient remains weaning with CPAP with PS of 8, patient repositioned and oral care provided and small red specks suctioned. mouth remains moist and moisturized, tube feeding remains held while patient is weaning.
--- NOTE | 2019-02-10 12:31 | Nephrology Progress Note ---
Assessment/Plan Problem List: (1) CHF (congestive heart failure) (2) End-stage renal disease (3) COPD (chronic obstructive pulmonary disease) (4) HTN (hypertension) (5) ARDS (adult respiratory distress syndrome) Assessment: 4K dialysate, replace K , monitor glu , on vent, trend lab Plan stable on HD via fem cath -2000, low K and 4KK Subjective ROS Limited/Unobtainable: Yes Objective Objective Last 24 Hour Vital Signs Date Time Temp Pulse Resp B/P (MAP) Pulse Ox O2 Delivery O2 Flow Rate FiO2 02/10/19 11:04 89 24 96 Mechanical Ventilator 50 02/10/19 11:04 89 24 50 02/10/19 10:54 89 24 96 Mechanical Ventilator 50 02/10/19 10:00 99.6 91 25 130/91 (104) 96 02/10/19 09:06 95 29 50 02/10/19 09:00 94 24 123/52 (75) 96 02/10/19 08:00 50 02/10/19 08:00 Mechanical Ventilator 02/10/19 08:00 100 02/10/19 08:00 100.3 94 27 122/50 (74) 93 02/10/19 07:17 100 29 50 50 02/10/19 07:16 93 31 98 Mechanical Ventilator 50 02/10/19 07:15 96 02/10/19 07:08 85 26 97 Mechanical Ventilator 50 02/10/19 07:00 90 25 135/57 (83) 95 02/10/19 06:00 90 25 145/66 (92) 95 02/10/19 05:30 93 25 50 02/10/19 05:06 95 30 146/64 (91) 94 02/10/19 04:00 98.0 91 30 138/65 (89) 86 02/10/19 04:00 50 02/10/19 04:00 Mechanical Ventilator 02/10/19 04:00 95 02/10/19 03:17 94 27 99 Mechanical Ventilator 50 02/10/19 03:08 92 25 98 Mechanical Ventilator 50 02/10/19 03:08 92 24 50 02/10/19 03:00 92 25 137/93 (108) 94 02/10/19 02:00 91 25 135/56 (82) 97 02/10/19 01:00 94 26 135/53 (80) 99 02/10/19 00:53 101 24 50 02/10/19 00:00 50 02/10/19 00:00 100 02/10/19 00:00 Mechanical Ventilator 02/10/19 00:00 102 24 135/57 (83) 94 02/09/19 23:22 99 26 100 Mechanical Ventilator 50 02/09/19 23:08 98 26 50 02/09/19 23:07 98 25 100 Mechanical Ventilator 50 02/09/19 23:00 97 22 141/75 (97) 98 02/09/19 22:00 97 26 138/64 (88) 100 02/09/19 21:20 95 21 50 02/09/19 21:00 96 25 145/69 (94) 100 02/09/19 20:00 91 02/09/19 20:00 Mechanical Ventilator 02/09/19 20:00 50 02/09/19 20:00 97.8 97 23 155/61 (92) 98 02/09/19 19:25 98 16 100 Mechanical Ventilator 50 02/09/19 19:02 98 23 50 02/09/19 19:01 98 23 98 Mechanical Ventilator 50 02/09/19 19:00 96 22 151/69 (96) 100 02/09/19 18:00 96 22 151/65 (93) 99 02/09/19 17:23 103 29 50 02/09/19 17:00 50 02/09/19 17:00 97 24 150/69 (96) 100 02/09/19 16:00 Mechanical Ventilator 02/09/19 16:00 98.0 99 22 147/68 (94) 100 02/09/19 16:00 95 02/09/19 16:00 40 02/09/19 15:23 96 26 100 Mechanical Ventilator 40 02/09/19 15:21 90 26 40 02/09/19 15:14 93 26 100 Mechanical Ventilator 40 02/09/19 15:00 94 25 147/68 (94) 99 02/09/19 14:00 88 26 143/65 (91) 100 02/09/19 13:15 97 31 40 02/09/19 13:00 89 26 152/65 (94) 99 Intake and Output 02/09/19 02/10/19 18:59 06:59 Intake Total 2120 ml 505 ml Output Total 2600 ml 600 ml Balance -480 ml -95 ml Free Water 100 ml 60 ml IV Total 1600 ml 60 ml Tube Feeding 420 ml 385 ml Output Urine Total 600 ml 600 ml Hemodialysis UF 2000 ml # Bowel Movements 2 3 Laboratory Tests 02/09/19 15:25: Stool Occult Blood [Pending] 02/09/19 16:10: White Blood Count 20.4H, Red Blood Count 3.16L, Hemoglobin 9.4L, Hematocrit 27.2L, Mean Corpuscular Volume 86, Mean Corpuscular Hemoglobin 29.8, Mean Corpuscular Hemoglobin Concent 34.7, Red Cell Distribution Width 13.8, Platelet Count 110L, Mean Platelet Volume 10.1, Neutrophils (%) (Auto) , Lymphocytes (%) (Auto) , Monocytes (%) (Auto) , Eosinophils (%) (Auto) , Basophils (%) (Auto) , Differential Total Cells Counted 100, Neutrophils % (Manual) 82H, Lymphocytes % (Manual) 10L, Monocytes % (Manual) 6, Eosinophils % (Manual) 2, Basophils % ( Manual) 0, Band Neutrophils 0, Platelet Estimate DecreasedL, Platelet Morphology Normal, Red Blood Cell Morphology Normal, Sodium Level 140, Potassium Level 2.6*L, Chloride Level 103, Carbon Dioxide Level 25, Anion Gap 13 , Blood Urea Nitrogen 42H, Creatinine 4.6H, Estimat Glomerular Filtration Rate 12.8, Glucose Level 331#H, Calcium Level 7.0L 02/10/19 04:57: White Blood Count 18.3H, Red Blood Count 3.07L, Hemoglobin 9.1L, Hematocrit 27.1L, Mean Corpuscular Volume 88, Mean Corpuscular Hemoglobin 29.6, Mean Corpuscular Hemoglobin Concent 33.5, Red Cell Distribution Width 14.3, Platelet Count 109L, Mean Platelet Volume 9.6, Neutrophils (%) (Auto) , Lymphocytes (%) ( Auto) , Monocytes (%) (Auto) , Eosinophils (%) (Auto) , Basophils (%) (Auto) , Differential Total Cells Counted 100, Neutrophils % (Manual) 85H, Lymphocytes % (Manual) 7L, Monocytes % (Manual) 7, Eosinophils % (Manual) 1, Basophils % ( Manual) 0, Band Neutrophils 0, Platelet Estimate DecreasedL, Platelet Morphology Normal, Sodium Level 146H, Potassium Level 2.4*L, Chloride Level 107 , Carbon Dioxide Level 27, Anion Gap 13, Blood Urea Nitrogen 50H, Creatinine 5.1H, Estimat Glomerular Filtration Rate 11.4, Glucose Level 198#H, Calcium Level 7.0L, Polychromasia 1+, Hypochromasia 1+, Anisocytosis 1+, Troponin I 0.261H, Pro-B-Type Natriuretic Peptide > 44159P Height (Feet): 5 Height (Inches): 3.00 Weight (Pounds): 131 General Appearance: no apparent distress, lethargic EENT: normal ENT inspection Neck: normal alignment Cardiovascular: normal rate, regular rhythm Respiratory/Chest: lungs clear Abdomen: non tender Extremities: other - bilat bka, no edema Neurologic: disoriented Jesús Silva MD Feb 10, 2019 12:31
--- NOTE | 2019-02-10 13:48 | Pulmonolgy Critical Care Note ---
Critical Care - Asmt/Plan Assessment/Plan: Pulmonary CCM Progress Note Assessment/Plan Impression: Respiratory failure, acute Chronic Obstructive Pulmonary Disease with exacerbation Pneumonia Acute kidney injury, h/o Chronic Kidney Disease Elevated troponin Anemia Congestive Heart Failure Previous Atrial Fibrillation Coronary Artery Disease Hypertension Hyperlipidemia Diabetes Bilateral amputations GERD ETOH abuse Plan AC Mechanical Ventilation- wean PEEP/wean as tolerated off pressors and monitor IV Antibiotics- ID noted HHN Monitor labs LE dupplex - SCD if negative Transfuse as needed HD for now [facility] Cardiology and Renal Consultation medications/laboratory data/nursing notes/ICU care reviewed in detail note reviewed and edited care discussed with RN and RT ICU time spent 40 minutes Critical Care - Subjective Interval Events: remains ill on HD in ICU consultants appreciated ROS Limited/Unobtainable: Yes Condition: critical EKG Rhythm: Sinus Rhythm Critical Care - Objective ET-Tube: 7.5 ET Position: 23 Vital Signs Noted Labs noted Objective: WDWN poor LOC on vent clear breath sounds bilaterally without rhonchi or wheeze [id number] without MRG NABS nontender no HSM no CC nonfocal; sedated Micro: Microbiology Date/Time Source Procedure Growth Status 02/05/19 23:10 Blood Blood Culture - Preliminary NO GROWTH AFTER 24 HOURS Resulted 02/05/19 22:55 Blood Blood Culture - Preliminary NO GROWTH AFTER 24 HOURS Resulted 02/06/19 03:00 Rectum Received Critical Care - Objective Last 24 Hour Vital Signs Date Time Temp Pulse Resp B/P (MAP) Pulse Ox O2 Delivery O2 Flow Rate FiO2 02/10/19 13:10 45 02/10/19 13:09 92 26 45 02/10/19 13:00 90 25 129/59 (82) 95 02/10/19 12:00 98.9 91 30 124/58 (80) 96 02/10/19 12:00 50 02/10/19 11:04 89 24 96 Mechanical Ventilator 50 02/10/19 11:04 89 24 50 02/10/19 11:00 91 23 133/58 (83) 100 02/10/19 10:54 89 24 96 Mechanical Ventilator 50 02/10/19 10:00 99.6 91 25 130/91 (104) 96 02/10/19 09:06 95 29 50 02/10/19 09:00 94 24 123/52 (75) 96 02/10/19 08:00 50 02/10/19 08:00 Mechanical Ventilator 02/10/19 08:00 100 02/10/19 08:00 100.3 94 27 122/50 (74) 93 02/10/19 07:17 100 29 50 50 02/10/19 07:16 93 31 98 Mechanical Ventilator 50 02/10/19 07:15 96 02/10/19 07:08 85 26 97 Mechanical Ventilator 50 02/10/19 07:00 90 25 135/57 (83) 95 02/10/19 06:00 90 25 145/66 (92) 95 02/10/19 05:30 93 25 50 02/10/19 05:06 95 30 146/64 (91) 94 02/10/19 04:00 98.0 91 30 138/65 (89) 86 02/10/19 04:00 50 02/10/19 04:00 Mechanical Ventilator 02/10/19 04:00 95 02/10/19 03:17 94 27 99 Mechanical Ventilator 50 02/10/19 03:08 92 25 98 Mechanical Ventilator 50 02/10/19 03:08 92 24 50 02/10/19 03:00 92 25 137/93 (108) 94 02/10/19 02:00 91 25 135/56 (82) 97 02/10/19 01:00 94 26 135/53 (80) 99 02/10/19 00:53 101 24 50 02/10/19 00:00 50 02/10/19 00:00 100 02/10/19 00:00 Mechanical Ventilator 02/10/19 00:00 102 24 135/57 (83) 94 02/09/19 23:22 99 26 100 Mechanical Ventilator 50 02/09/19 23:08 98 26 50 02/09/19 23:07 98 25 100 Mechanical Ventilator 50 02/09/19 23:00 97 22 141/75 (97) 98 02/09/19 22:00 97 26 138/64 (88) 100 02/09/19 21:20 95 21 50 02/09/19 21:00 96 25 145/69 (94) 100 02/09/19 20:00 91 02/09/19 20:00 Mechanical Ventilator 02/09/19 20:00 50 02/09/19 20:00 97.8 97 23 155/61 (92) 98 02/09/19 19:25 98 16 100 Mechanical Ventilator 50 02/09/19 19:02 98 23 50 02/09/19 19:01 98 23 98 Mechanical Ventilator 50 02/09/19 19:00 96 22 151/69 (96) 100 02/09/19 18:00 96 22 151/65 (93) 99 02/09/19 17:23 103 29 50 02/09/19 17:00 50 02/09/19 17:00 97 24 150/69 (96) 100 02/09/19 16:00 Mechanical Ventilator 02/09/19 16:00 98.0 99 22 147/68 (94) 100 02/09/19 16:00 95 02/09/19 16:00 40 02/09/19 15:23 96 26 100 Mechanical Ventilator 40 02/09/19 15:21 90 26 40 02/09/19 15:14 93 26 100 Mechanical Ventilator 40 02/09/19 15:00 94 25 147/68 (94) 99 02/09/19 14:00 88 26 143/65 (91) 100 Micro: Microbiology Date/Time Source Procedure Growth Status 02/09/19 08:30 Sputum Gram Stain - Final Resulted 02/09/19 08:30 Sputum Sputum Culture - Preliminary NORMAL UPPER RESPIRATORY YULY AT 24 ... Resulted Accucheck: 171 Critical Care - Subjective ROS Limited/Unobtainable: No Condition: stable FI02: 45 Vent Support Breath Rate: 26 Vent Support Mode: CPAP Vent Tidal Volume: 550 Sputum Amount: Small PEEP: 5.0 PIP: 14 Tube Feeding Amount: 0 I&O: Intake and Output 02/09/19 02/10/19 19:00 07:00 Intake Total 2060 ml 470 ml Output Total 2600 ml 550 ml Balance -540 ml -80 ml Free Water 100 ml 60 ml IV Total 1540 ml 60 ml Tube Feeding 420 ml 350 ml Output Urine Total 600 ml 550 ml Hemodialysis UF 2000 ml # Bowel Movements 5 ET-Tube: 7.5 ET Position: 22 Jamari Chambers MD Feb 10, 2019 13:48
--- NOTE | 2019-02-10 14:00 | NUR ---
NURSE NOTES: IRC called to notify of order placed by Dr. rowley and arrange hemodialysis on 02/11/19. made aware of potassium 40mEq IVBP plus additional order of 40mEq kcl PO for potassium of 2.4. no loose stool noted this morning, suprapubic catheter remains draining clear urine.
--- NOTE | 2019-02-10 15:00 | NUR ---
NURSE NOTES: Patient returned to AC of 26, TV: 550 FIO2 of 30% with peep of 5 since he was becoming restless, patient remains saturating at 93-95% with RR of 38-32, he remains restless with legs moving towards left side, patient is consolable is calm after placing back to AC settings.
--- NOTE | 2019-02-10 15:23 | NUR ---
CASE MANAGEMENT: REVIEW SI: PNA . RESP FAILURE . RENAL INSUFFICIENCY RIGHT FEMORAL TEMPORARY HEMODIALYSIS CATHETER INSERTION 02/06 T 100.3 HR 91 RR 30 BP 146/64 SAT 86% MECH VENT FIO2 50 WBC 18.3 H/H 9.1/27.1 NA 146 K 2.4 TROP 0.261 BNP >66750 IS: HEPARIN IV X1 VENOFER IV QHS EPOETIN SUBQ MWF ALBUTEROL HHN Q4HR MEROPENEM IV QD HEPARIN SUBQ Q12HR HD PRN OG TUBE FEEDING ICU STATUS DCP: PATIENT IS FROM [facility]
[2019-02-10] MEDS ORDERED: Tubing IV Secondary IV ONE (15:27)
[2019-02-10] MEDS ORDERED: 1/2 NS 1000ml IV ONE (15:27)
[2019-02-10] MEDS ORDERED: NS 275ml ONE (15:27)
--- NOTE | 2019-02-10 16:15 | NUR ---
NURSE NOTES: Dr. Chambers ordered to have an ABG sample with in 30min once weaning starts. made aware of weaning on Cpap with PS of 8 from 0715 to 1500. placed back to ac 26, TV: 550 Fio2 35% with peep of 5 since patient was restless in bed. no further orders given.
--- NOTE | 2019-02-10 19:17 | NUR ---
HAND-OFF: Report given to YU Arita.
--- NOTE | 2019-02-10 19:25 | NUR ---
RESPIRATORY NOTE: Received pt on AC 26, 550VT, 45%, PEEP +5. Pt intubated w/ ETT 7.5 @ 23cm lipline, secured by anchorfast. Pt alert/awake, follows commands. Both hands on soft-restraints to prevent pt from self-extubation. B/S genevieve. clear-diminished, sxn small amounts of thick/thin, lundy-brown to bloody secretions. Vent plugged into red outlet, ambubag at bedside. Pt in no apparent distress at this time. Will continue to monitor pt.
--- NOTE | 2019-02-10 19:30 | NUR ---
NURSE NOTES:Received pt with eyes close but easily arousable to tactile stimulation. orally intubated on ac mode, bilateral soft wrist restraints on for safety to avoid self extubation. Pt is a HD pt. for Hd in am. Rt femoral dillan cath with pigtail wth drsg dry and intact, Suprapubic cath to gravity with lg amt of zane yellow urine. Monitor I and O, monitor lytes. Tolerated OGT fdg at 35ml/hr. no residuals Skin remained intact. will continue to monitor.
[2019-02-10] MEDS: Dyna-Hex 2% Top Sol 2oz TOPIC SCH (20:19)
[2019-02-10] MEDS: Iron Sucrose 100 MG in NS 55 ML IV SCH (20:56)
--- NOTE | 2019-02-10 21:17 | NUR ---
NURSE NOTES:Morphine 2mg ivp given due to pain FLACC 7
--- NOTE | 2019-02-10 23:00 | NUR ---
NURSE NOTES:Suctioned tk beige secretions, moderate in amt HOB kept elevated. watch for any resp. distress.
[2019-02-11] VITALS (24 sets, daily range): BP systolic 101–139; BP diastolic 37–67
--- NOTE | 2019-02-11 | NUR ---
NURSE NOTES:Accucheck with coverage pls see emar.
--- NOTE | 2019-02-11 00:30 | Progress Note ---
DATE: 02/10/2019 CARDIOLOGY PROGRESS NOTE SUBJECTIVE: The patient has been dialyzed via catheter in the right femoral region. OBJECTIVE: VITAL SIGNS: Blood pressure 130/91, heart rate 91, respiratory rate 25, temperature max 100.3. LUNGS: Bilateral breath sounds. Few rhonchi. HEART: Regular rhythm and rate. Normal S1, S2. ABDOMEN: Soft. EXTREMITIES: 1+ dependent edema. LABORATORY DATA: White count 18.3, hemoglobin 9.1. Sodium 146, potassium 2.4, bicarb 27, BUN 50, creatinine 5.1. Troponin 0.361. IMPRESSION: 1. Status post full arrest. 2. Acute on chronic renal failure. 3. Acute myocardial ischemia and status post non ST-elevation myocardial infarction. 4. Hypokalemia. 5. Dehydration. 6. Hyponatremia. 7. Sepsis with recovering shock. 8. Respiratory failure. PLAN: 1. Hemodialysis. 2. Free water and potassium adjustments by . 3. Antimicrobials. 4. Ventilator support with weaning. 5. Reassess for beta-artis therapy once hemodynamically more stable. Jamari Gale M.D. DR: RYLAN JOB#: [id number] CC:
[2019-02-11] MEDS: Morphine Sulfate 2mg/ml Inj(IV/IM USE ONLY) IVP PRN ×4 (02:46→20:51)
--- NOTE | 2019-02-11 02:46 | NUR ---
NURSE NOTES:Morphine 2mg ivp given due to pain FLACC 7
[2019-02-11] MEDS: Albuterol/Ipratropium 3ml neb HHN SCH ×3 (03:18→10:49)
--- NOTE | 2019-02-11 04:00 | NUR ---
NURSE NOTES:Complete bath with bed changed done.
--- NOTE | 2019-02-11 06:00 | NUR ---
NURSE NOTES:Accucheck 237mg/dl with coverage. pls see emar,.Turned off fdg at this time. per msds order for weaning.
[2019-02-11] MEDS: NovoLOG Insulin Flexpen SUBQ SCH ×4 (06:01→23:59)
--- NOTE | 2019-02-11 07:00 | NUR ---
RESPIRATORY NOTES: Received patient on ACVC RR 26, VT 550, FIO2 45%, PEEP +5. Intubated with 7.5 ETT at 23cm at the lip, secured with anchorfast. Bilateral breath sounds reveal rhonchi. Suctioned minimal amount of bloody secretions through the ETT and thin clear secretions orally. Patient is currently alert, awake, and lightly agitated. Alarms are on and audible. Vent plugged into red outlet. Will continue to monitor throughout the day.
--- NOTE | 2019-02-11 07:29 | NUR ---
HAND-OFF: Report given to Meme Giraldo RN.
--- NOTE | 2019-02-11 07:30 | NUR ---
NURSE NOTES: Received patient from YU Arita. Patient blood pressure 125/60, HR 89, SpO2 99%, and RR 26. Patient resting in bed at semi-fowlers. Patient complaining of pain at this time. Will follow up with pain medication at this time. Patient intubated with 7.5cm ETT with 22cm at the lip line. Ventilator setting AC 26, tidal volume 550, FiO2 45%, and PEEP 5. Patient has an order for weaning this morning. Will follow up with respiratory therapist. Patient has an OGT that is patent and verified via auscultation at this time. Patient has an order to hold feeding prior to weaning. Feeding on hold at this time until weaning completed. Patient has a suprapubic catheter that is patent and draining 80-100mL/hr. Catheter leaking around the insertion site. Will notify MD. Patient has an order for dialysis this morning. Patient has a right femoral Nba catheter with pigtail that is patent and saline locked at this time. Dialysis nurse is dialyzing another patient at this time and will dialyze this patient upon completion of the other patient's dialysis. Patient skin intact. Patient has bilateral below knee amputation. Patient bed in low position with bed alarm on and call light in reach at this time.
[2019-02-11 08:17] LABS: HEMATOCRIT 28.8 % (42.0-52.0); HEMOGLOBIN 9.1 G/DL (14.2-18.0); MEAN CORPUSCULAR VOLUME 91 FL (80-99); PLATELET COUNT 97 K/UL (150-450); RED BLOOD COUNT 3.18 M/UL (4.70-6.10); RED CELL DISTRIBUTION WIDTH 15.9 % (11.6-14.8); WHITE BLOOD COUNT 12.7 K/UL (4.8-10.8)
--- NOTE | 2019-02-11 08:28 | Critical Care Progress Note ---
Assessment/Plan Assessment/Plan Impression: Respiratory failure, acute Chronic Obstructive Pulmonary Disease with exacerbation Pneumonia Acute kidney injury, h/o Chronic Kidney Disease Elevated troponin Anemia Congestive Heart Failure Previous Atrial Fibrillation Coronary Artery Disease Hypertension Hyperlipidemia Diabetes Bilateral amputations GERD ETOH abuse Plan on vent IV Antibiotics- ID noted HHN Monitor labs Transfuse as needed HD for now Protonix oracle hyperion consultant care reviewed medications/laboratory data/nursing notes/ICU care reviewed in detail note reviewed and edited care discussed with RN and RT ICU time spent 40 minutes Critical Care - Subjective Interval Events: care noted over the weekend still on vent ROS Limited/Unobtainable: Yes Condition: critical EKG Rhythm: Sinus Rhythm I&O: Intake and Output 02/10/19 02/11/19 19:00 07:00 Intake Total 520 ml 450 ml Output Total 570 ml 870 ml Balance -50 ml -420 ml Free Water 200 ml 30 ml IV Total 160 ml Tube Feeding 140 ml 420 ml Other 20 ml Output Urine Total 570 ml 870 ml Critical Care - Objective ET-Tube: 7.5 ET Position: 23 Last 24 Hour Vital Signs Date Time Temp Pulse Resp B/P (MAP) Pulse Ox O2 Delivery O2 Flow Rate FiO2 02/11/19 07:02 84 26 99 Mechanical Ventilator 45 02/11/19 07:00 85 26 45 02/11/19 06:55 85 26 98 Mechanical Ventilator 45 02/11/19 06:00 84 26 115/54 (74) 100 02/11/19 05:13 90 26 45 02/11/19 05:00 88 26 120/54 (76) 97 02/11/19 04:00 Mechanical Ventilator 02/11/19 04:00 45 02/11/19 04:00 87 02/11/19 04:00 98.0 87 26 139/67 (91) 97 02/11/19 03:28 91 26 97 Mechanical Ventilator 45 02/11/19 03:18 87 26 97 Mechanical Ventilator 45 02/11/19 03:18 87 26 45 02/11/19 03:00 83 26 128/52 (77) 96 02/11/19 02:00 85 26 129/56 (80) 96 02/11/19 01:00 86 25 125/52 (76) 96 02/11/19 00:55 85 26 45 02/11/19 00:00 98.4 85 26 136/66 (89) 97 02/11/19 00:00 45 02/11/19 00:00 89 02/11/19 00:00 Mechanical Ventilator 02/10/19 23:10 84 26 98 Mechanical Ventilator 45 02/10/19 23:03 84 26 97 Mechanical Ventilator 45 02/10/19 23:00 84 26 45 02/10/19 23:00 84 26 97 Mechanical Ventilator 45 02/10/19 23:00 69 26 125/84 (98) 98 02/10/19 22:00 83 26 134/63 (86) 98 02/10/19 21:21 84 26 45 02/10/19 21:00 85 26 117/54 (75) 96 02/10/19 20:00 98.6 85 26 116/52 (73) 94 02/10/19 20:00 45 02/10/19 20:00 85 02/10/19 20:00 Mechanical Ventilator 02/10/19 19:31 86 26 95 Mechanical Ventilator 45 02/10/19 19:21 87 26 95 Mechanical Ventilator 45 02/10/19 19:21 87 26 45 02/10/19 18:00 89 26 130/62 (84) 95 02/10/19 17:09 88 23 45 02/10/19 17:00 86 26 130/62 (84) 95 02/10/19 16:00 Mechanical Ventilator 02/10/19 16:00 45 02/10/19 16:00 88 02/10/19 16:00 98.6 92 26 123/58 (79) 94 02/10/19 15:08 94 28 96 Mechanical Ventilator 50 02/10/19 15:08 94 28 45 02/10/19 15:00 45 02/10/19 15:00 90 26 117/59 (78) 95 02/10/19 14:59 91 22 95 Mechanical Ventilator 45 02/10/19 14:00 93 25 123/57 (79) 99 02/10/19 13:10 45 02/10/19 13:09 92 26 45 02/10/19 13:00 90 25 129/59 (82) 95 02/10/19 12:00 92 02/10/19 12:00 98.9 91 30 124/58 (80) 96 02/10/19 12:00 50 02/10/19 12:00 Mechanical Ventilator 02/10/19 11:04 89 24 96 Mechanical Ventilator 50 02/10/19 11:04 89 24 50 02/10/19 11:00 91 23 133/58 (83) 100 02/10/19 10:54 89 24 96 Mechanical Ventilator 50 02/10/19 10:00 99.6 91 25 130/91 (104) 96 02/10/19 09:06 95 29 50 02/10/19 09:00 94 24 123/52 (75) 96 Labs: Laboratory Tests Test 02/11/19 07:39 White Blood Count 12.7 K/UL (4.8-10.8) H Red Blood Count 3.18 M/UL (4.70-6.10) L Hemoglobin 9.1 G/DL (14.2-18.0) L Hematocrit 28.8 % (42.0-52.0) L Mean Corpuscular Volume 91 FL (80-99) Mean Corpuscular Hemoglobin 28.5 PG (27.0-31.0) Mean Corpuscular Hemoglobin Concent 31.5 G/DL (32.0-36.0) L Red Cell Distribution Width 15.9 % (11.6-14.8) H Platelet Count 97 K/UL (150-450) L Mean Platelet Volume 9.0 FL (6.5-10.1) Neutrophils (%) (Auto) % (45.0-75.0) Lymphocytes (%) (Auto) % (20.0-45.0) Monocytes (%) (Auto) % (1.0-10.0) Eosinophils (%) (Auto) % (0.0-3.0) Basophils (%) (Auto) % (0.0-2.0) Neutrophils % (Manual) Pending Lymphocytes % (Manual) Pending Platelet Estimate Pending Platelet Morphology Pending Sodium Level Pending Potassium Level Pending Chloride Level Pending Carbon Dioxide Level Pending Blood Urea Nitrogen Pending Creatinine Pending Estimat Glomerular Filtration Rate Pending Glucose Level Pending Calcium Level Pending Total Bilirubin Pending Aspartate Amino Transf (AST/SGOT) Pending Alanine Aminotransferase (ALT/SGPT) Pending Alkaline Phosphatase Pending Total Protein Pending Albumin Pending Globulin Pending Objective: WDWN poor LOC on vent clear breath sounds bilaterally without rhonchi or wheeze [id number] without MRG NABS nontender no HSM no CC nonfocal; sedated Micro: Microbiology Date/Time Source Procedure Growth Status 02/09/19 08:30 Sputum Gram Stain - Final Complete 02/09/19 08:30 Sputum Sputum Culture - Final NORMAL UPPER RESPIRATORY YULY PRESENT Complete Accucheck: 237 Theo Noriega MD Feb 11, 2019 08:28
[2019-02-11 08:29] LABS: ANION GAP 8 mmol/L (5-15); BLOOD UREA NITROGEN 51 mg/dL (7-18); CALCIUM 6.9 MG/DL (8.5-10.1); CARBON DIOXIDE 26 MMOL/L (21-32); CHLORIDE 108 MMOL/L (98-107); CREATININE 5.5 MG/DL (0.55-1.30); POTASSIUM 3.4 MMOL/L (3.5-5.1); SODIUM 142 MMOL/L (136-145)
[2019-02-11 08:36] LABS: ALANINE AMINOTRANSFERASE 37 U/L (12-78); ALBUMIN 1.9 G/DL (3.4-5.0); ALBUMIN/GLOBULIN RATIO 0.5 (1.0-2.7); ALKALINE PHOSPHATASE 84 U/L (46-116); ASPARTATE AMINO TRANSFERASE 21 U/L (15-37); BILIRUBIN,TOTAL 0.6 MG/DL (0.2-1.0)
--- NOTE | 2019-02-11 08:38 | NUR ---
NURSE NOTES: Patient receiving dialysis at this time.
--- NOTE | 2019-02-11 08:53 | Nephrology Progress Note ---
Assessment/Plan Plan ESRD - STARTED HD via femoral Junior. Needs PermaCath + AVF. To get a PermaCath soon. Sepsis - per ID. Resp Failure - hope to wean soon. Subjective Subjective On vent. On HD now = stable run. Objective Objective Last 24 Hour Vital Signs Date Time Temp Pulse Resp B/P (MAP) Pulse Ox O2 Delivery O2 Flow Rate FiO2 02/11/19 07:02 84 26 99 Mechanical Ventilator 45 02/11/19 07:00 85 26 45 02/11/19 06:55 85 26 98 Mechanical Ventilator 45 02/11/19 06:00 84 26 115/54 (74) 100 02/11/19 05:13 90 26 45 02/11/19 05:00 88 26 120/54 (76) 97 02/11/19 04:00 Mechanical Ventilator 02/11/19 04:00 45 02/11/19 04:00 87 02/11/19 04:00 98.0 87 26 139/67 (91) 97 02/11/19 03:28 91 26 97 Mechanical Ventilator 45 02/11/19 03:18 87 26 97 Mechanical Ventilator 45 02/11/19 03:18 87 26 45 02/11/19 03:00 83 26 128/52 (77) 96 02/11/19 02:00 85 26 129/56 (80) 96 02/11/19 01:00 86 25 125/52 (76) 96 02/11/19 00:55 85 26 45 02/11/19 00:00 98.4 85 26 136/66 (89) 97 02/11/19 00:00 45 02/11/19 00:00 89 02/11/19 00:00 Mechanical Ventilator 02/10/19 23:10 84 26 98 Mechanical Ventilator 45 02/10/19 23:03 84 26 97 Mechanical Ventilator 45 02/10/19 23:00 84 26 45 02/10/19 23:00 84 26 97 Mechanical Ventilator 45 02/10/19 23:00 69 26 125/84 (98) 98 02/10/19 22:00 83 26 134/63 (86) 98 02/10/19 21:21 84 26 45 02/10/19 21:00 85 26 117/54 (75) 96 02/10/19 20:00 98.6 85 26 116/52 (73) 94 02/10/19 20:00 45 02/10/19 20:00 85 02/10/19 20:00 Mechanical Ventilator 02/10/19 19:31 86 26 95 Mechanical Ventilator 45 02/10/19 19:21 87 26 95 Mechanical Ventilator 45 02/10/19 19:21 87 26 45 02/10/19 18:00 89 26 130/62 (84) 95 02/10/19 17:09 88 23 45 02/10/19 17:00 86 26 130/62 (84) 95 02/10/19 16:00 Mechanical Ventilator 02/10/19 16:00 45 02/10/19 16:00 88 02/10/19 16:00 98.6 92 26 123/58 (79) 94 02/10/19 15:08 94 28 96 Mechanical Ventilator 50 02/10/19 15:08 94 28 45 02/10/19 15:00 45 02/10/19 15:00 90 26 117/59 (78) 95 02/10/19 14:59 91 22 95 Mechanical Ventilator 45 02/10/19 14:00 93 25 123/57 (79) 99 02/10/19 13:10 45 02/10/19 13:09 92 26 45 02/10/19 13:00 90 25 129/59 (82) 95 02/10/19 12:00 92 02/10/19 12:00 98.9 91 30 124/58 (80) 96 02/10/19 12:00 50 02/10/19 12:00 Mechanical Ventilator 02/10/19 11:04 89 24 96 Mechanical Ventilator 50 02/10/19 11:04 89 24 50 02/10/19 11:00 91 23 133/58 (83) 100 02/10/19 10:54 89 24 96 Mechanical Ventilator 50 02/10/19 10:00 99.6 91 25 130/91 (104) 96 02/10/19 09:06 95 29 50 02/10/19 09:00 94 24 123/52 (75) 96 Intake and Output 02/10/19 02/11/19 18:59 06:59 Intake Total 520 ml 415 ml Output Total 570 ml 800 ml Balance -50 ml -385 ml Free Water 200 ml 30 ml IV Total 160 ml Tube Feeding 140 ml 385 ml Other 20 ml Output Urine Total 570 ml 800 ml Laboratory Tests 02/11/19 04:00: Arterial Blood pH 7.533H, Arterial Blood Partial Pressure CO2 27.2L, Arterial Blood Partial Pressure O2 63.5L, Arterial Blood HCO3 22.4, Arterial Blood Oxygen Saturation 93.3L, Arterial Blood Base Excess 0.4, Trevor Test Positive 02/11/19 07:39: White Blood Count 12.7H, Red Blood Count 3.18L, Hemoglobin 9.1L, Hematocrit 28.8L, Mean Corpuscular Volume 91, Mean Corpuscular Hemoglobin 28.5, Mean Corpuscular Hemoglobin Concent 31.5L, Red Cell Distribution Width 15.9H, Platelet Count 97L, Mean Platelet Volume 9.0, Neutrophils (%) (Auto) , Lymphocytes (%) (Auto) , Monocytes (%) (Auto) , Eosinophils (%) (Auto) , Basophils (%) (Auto) , Neutrophils % (Manual) [Pending], Lymphocytes % (Manual) [Pending], Platelet Estimate [Pending], Platelet Morphology [Pending], Sodium Level 142, Potassium Level 3.4L, Chloride Level 108H, Carbon Dioxide Level 26, Anion Gap 8, Blood Urea Nitrogen 51H, Creatinine 5.5H, Estimat Glomerular Filtration Rate 10.4, Glucose Level 213H, Calcium Level 6.9L, Total Bilirubin 0.6, Aspartate Amino Transf (AST/SGOT) 21, Alanine Aminotransferase (ALT/SGPT) 37, Alkaline Phosphatase 84, Total Protein 5.7L, Albumin 1.9L, Globulin 3.8, Albumin/Globulin Ratio 0.5L Height (Feet): 5 Height (Inches): 3.00 Weight (Pounds): 133 Objective On vent. Arousable. CV RR Lungs CTA Abd SNT. BS + E No CCE. B BKS stumps clean. Nery Quezada MD Feb 11, 2019 08:53
[2019-02-11] MEDS: Heparin 5000 units/ml inj SUBQ SCH ×2 (09:00→21:00)
--- NOTE | 2019-02-11 10:00 | NUR ---
NURSE NOTES: Blood pressure 125/63, HR 87, SpO2 100% on mechanical ventilator with setting AC 26, tidal volume 550, FiO2 45%, and PEEP 5. Patient resting with no sign of acute distress. Patient complaining of pain in his chest from the endotracheal tube. pain medication given. patient on hemodialysis at this time. Patient remains on bilateral soft wrist restraint but patient cooperative and follows commands. Will trial removal of restraints later today. Bed in low position with bed alarm on and call light in reach at this time.
[2019-02-11] MEDS: Meropenem 500 MG in NS 55 ML IVPB SCH ×2 (11:07→11:08)
--- NOTE | 2019-02-11 11:26 | Infectious Diseases Prog Note ---
Assessment/Plan Assessment/Plan antibiotics : meropenem A 1. pneumonia 2. renal failure 3. respiratory failure 4. leucocytosis improving 5. rectal VRE colonization P 1. continue meropenem 2. will follow up cultures Subjective ROS Limited/Unobtainable: Yes Allergies: Coded Allergies: No Known Allergies (Unverified , 09/25/17) Objective Vital Signs Last 24 Hour Vital Signs Date Time Temp Pulse Resp B/P (MAP) Pulse Ox O2 Delivery O2 Flow Rate FiO2 02/11/19 10:48 Mechanical Ventilator 45 02/11/19 10:48 98 27 45 02/11/19 10:48 Mechanical Ventilator 45 02/11/19 10:00 84 26 125/63 (83) 100 02/11/19 09:29 88 26 45 02/11/19 09:00 86 26 109/58 (75) 99 02/11/19 08:00 89 02/11/19 08:00 98.6 90 26 125/60 (81) 98 02/11/19 08:00 Mechanical Ventilator 02/11/19 08:00 45 02/11/19 07:02 84 26 99 Mechanical Ventilator 45 02/11/19 07:00 85 26 45 02/11/19 07:00 84 26 126/59 (81) 100 02/11/19 06:55 85 26 98 Mechanical Ventilator 45 02/11/19 06:00 84 26 115/54 (74) 100 02/11/19 05:13 90 26 45 02/11/19 05:00 88 26 120/54 (76) 97 02/11/19 04:00 Mechanical Ventilator 02/11/19 04:00 45 02/11/19 04:00 87 02/11/19 04:00 98.0 87 26 139/67 (91) 97 02/11/19 03:28 91 26 97 Mechanical Ventilator 45 02/11/19 03:18 87 26 97 Mechanical Ventilator 45 02/11/19 03:18 87 26 45 02/11/19 03:00 83 26 128/52 (77) 96 02/11/19 02:00 85 26 129/56 (80) 96 02/11/19 01:00 86 25 125/52 (76) 96 02/11/19 00:55 85 26 45 02/11/19 00:00 98.4 85 26 136/66 (89) 97 02/11/19 00:00 45 02/11/19 00:00 89 02/11/19 00:00 Mechanical Ventilator 02/10/19 23:10 84 26 98 Mechanical Ventilator 45 02/10/19 23:03 84 26 97 Mechanical Ventilator 45 02/10/19 23:00 84 26 45 02/10/19 23:00 84 26 97 Mechanical Ventilator 45 02/10/19 23:00 69 26 125/84 (98) 98 02/10/19 22:00 83 26 134/63 (86) 98 02/10/19 21:21 84 26 45 02/10/19 21:00 85 26 117/54 (75) 96 02/10/19 20:00 98.6 85 26 116/52 (73) 94 02/10/19 20:00 45 02/10/19 20:00 85 02/10/19 20:00 Mechanical Ventilator 02/10/19 19:31 86 26 95 Mechanical Ventilator 45 02/10/19 19:21 87 26 95 Mechanical Ventilator 45 02/10/19 19:21 87 26 45 02/10/19 18:00 89 26 130/62 (84) 95 02/10/19 17:09 88 23 45 02/10/19 17:00 86 26 130/62 (84) 95 02/10/19 16:00 Mechanical Ventilator 02/10/19 16:00 45 02/10/19 16:00 88 02/10/19 16:00 98.6 92 26 123/58 (79) 94 02/10/19 15:08 94 28 96 Mechanical Ventilator 50 02/10/19 15:08 94 28 45 02/10/19 15:00 45 02/10/19 15:00 90 26 117/59 (78) 95 02/10/19 14:59 91 22 95 Mechanical Ventilator 45 02/10/19 14:00 93 25 123/57 (79) 99 02/10/19 13:10 45 02/10/19 13:09 92 26 45 02/10/19 13:00 90 25 129/59 (82) 95 02/10/19 12:00 92 02/10/19 12:00 98.9 91 30 124/58 (80) 96 02/10/19 12:00 50 02/10/19 12:00 Mechanical Ventilator Height (Feet): 5 Height (Inches): 3.00 Weight (Pounds): 133 HEENT: other - intubated Respiratory/Chest: lungs clear Cardiovascular: normal rate, regular rhythm, no gallop/murmur Abdomen: soft, non tender, other - SPC Extremities: no edema - stumps clean, right groin catheter Microbiology Date/Time Source Procedure Growth Status 02/09/19 08:30 Sputum Gram Stain - Final Complete 02/09/19 08:30 Sputum Sputum Culture - Final NORMAL UPPER RESPIRATORY YULY PRESENT Complete Laboratory Tests Test 02/11/19 04:00 02/11/19 07:39 Arterial Blood pH 7.533 (7.350-7.450) Arterial Blood Partial Pressure CO2 27.2 mmHg (35.0-45.0) L Arterial Blood Partial Pressure O2 63.5 mmHg (75.0-100.0) L Arterial Blood HCO3 22.4 mmol/L (22.0-26.0) Arterial Blood Oxygen Saturation 93.3 % (95-100) L Arterial Blood Base Excess 0.4 (-2-2) Trevor Test Positive White Blood Count 12.7 K/UL (4.8-10.8) H Red Blood Count 3.18 M/UL (4.70-6.10) L Hemoglobin 9.1 G/DL (14.2-18.0) L Hematocrit 28.8 % (42.0-52.0) L Mean Corpuscular Volume 91 FL (80-99) Mean Corpuscular Hemoglobin 28.5 PG (27.0-31.0) Mean Corpuscular Hemoglobin Concent 31.5 G/DL (32.0-36.0) L Red Cell Distribution Width 15.9 % (11.6-14.8) H Platelet Count 97 K/UL (150-450) L Mean Platelet Volume 9.0 FL (6.5-10.1) Neutrophils (%) (Auto) % (45.0-75.0) Lymphocytes (%) (Auto) % (20.0-45.0) Monocytes (%) (Auto) % (1.0-10.0) Eosinophils (%) (Auto) % (0.0-3.0) Basophils (%) (Auto) % (0.0-2.0) Differential Total Cells Counted 100 Neutrophils % (Manual) 84 % (45-75) H Lymphocytes % (Manual) 8 % (20-45) L Monocytes % (Manual) 3 % (1-10) Eosinophils % (Manual) 5 % (0-3) H Basophils % (Manual) 0 % (0-2) Band Neutrophils 0 % (0-8) Platelet Estimate Decreased L Platelet Morphology Normal Polychromasia 1+ Hypochromasia 1+ Anisocytosis 1+ Sodium Level 142 MMOL/L (136-145) Potassium Level 3.4 MMOL/L (3.5-5.1) L Chloride Level 108 MMOL/L (98-107) H Carbon Dioxide Level 26 MMOL/L (21-32) Anion Gap 8 mmol/L (5-15) Blood Urea Nitrogen 51 mg/dL (7-18) H Creatinine 5.5 MG/DL (0.55-1.30) H Estimat Glomerular Filtration Rate 10.4 mL/min (>60) Glucose Level 213 MG/DL (74-106) H Calcium Level 6.9 MG/DL (8.5-10.1) L Total Bilirubin 0.6 MG/DL (0.2-1.0) Aspartate Amino Transf (AST/SGOT) 21 U/L (15-37) Alanine Aminotransferase (ALT/SGPT) 37 U/L (12-78) Alkaline Phosphatase 84 U/L (46-116) Total Protein 5.7 G/DL (6.4-8.2) L Albumin 1.9 G/DL (3.4-5.0) L Globulin 3.8 g/dL Albumin/Globulin Ratio 0.5 (1.0-2.7) L Current Medications Medications (Trade) Dose Ordered Sig/Joe Route PRN Reason Start Time Stop Time Status Last Admin Dose Admin Acetaminophen (Tylenol) 650 mg Q4H PRN ORAL Mild Pain/Temp > 100.5 02/06/19 05:45 03/08/19 05:44 Al Hydroxide/Mg Hydroxide (Mylanta) 30 ml PRN ORAL 02/06/19 05:45 03/08/19 05:44 Albuterol/ Ipratropium (Albuterol/ Ipratropium) 3 ml Q4HRT HHN 02/06/19 15:00 02/11/19 14:59 02/11/19 07:03 Chlorhexidine Gluconate (Falguni-Hex 2%) 1 applic DAILY@1999 TOPIC 02/06/19 20:00 03/08/19 19:59 02/10/19 20:19 Dextrose (Dextrose 50%) 25 ml Q30M PRN IV Hypoglycemia 02/06/19 11:30 03/08/19 11:29 Dextrose (Dextrose 50%) 50 ml Q30M PRN IV Hypoglycemia 02/06/19 11:30 03/08/19 11:29 Epoetin Mayo (Epoetin Mayo(ESRD on dialysis)) 10,000 unit MON-MON-MON SUBQ 02/06/19 21:00 03/08/19 20:59 02/08/19 20:44 Heparin Sodium (Porcine) (Heparin 5000 units/ml) 5,000 units EVERY 12 HOURS SUBQ 02/06/19 09:00 03/08/19 08:59 02/10/19 21:02 Heparin Sodium (Porcine) (Heparin Sod 1000 units/ml 10ml) 500 unit ONCE ONCE IV 02/11/19 12:45 02/11/19 12:46 Insulin Aspart (NovoLOG) Q6HR SUBQ 02/06/19 12:00 03/08/19 11:59 02/11/19 06:01 Lansoprazole (Prevacid) 30 mg DAILY NG 02/06/19 09:00 03/08/19 08:59 02/11/19 09:45 Lorazepam (Ativan 2mg/ml 1ml) 0.5 mg Q2H PRN IV For Anxiety 02/09/19 22:15 02/16/19 22:14 02/10/19 01:51 Meropenem 500 mg/ Sodium Chloride 55 ml @ 110 mls/hr DAILY IVPB 02/06/19 13:00 02/15/19 12:59 02/11/19 11:08 Morphine Sulfate (Morphine Sulfate) 2 mg Q2H PRN IVP For Pain 02/09/19 23:45 02/16/19 23:44 02/11/19 07:21 Sodium Chloride 1,000 ml @ 500 mls/hr Q2H PRN IVLG sbp<90 during hd 02/11/19 12:32 03/13/19 12:31 Alicia Greene MD Feb 11, 2019 11:26
--- NOTE | 2019-02-11 11:44 | NUR ---
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 98.6 HR 84 RR 27 B/P 109/58 WBC 12.7 K 3.4 BUN 51 CR 5.5 ALB 1.9 PH 7.53 PCO2 27.2 PO2 63.5 HCO3 22.5 O2 SAT 93.3 IS: MEROPENEM IV HEPARIN SUBC ICU STATUS
--- NOTE | 2019-02-11 12:00 | NUR ---
NURSE NOTES: Patient resting at this time with no sign of acute distress. Dialysis complete with 1.5L out. Patient resting and will follow up with ventilator weaning trial when patient more awake. Patient blood pressure 119/55, HR 85, SpO2 99%, and RR 26. Patient resting in bed at semi-fowlers. Ventilator setting AC 26, tidal volume 550, FiO2 45%, and PEEP 5. OGT patent and verified via auscultation at this time. Patient tube feeding remains held for weaning trial. Feeding will remain on hold at this time until weaning completed. Patient's suprapubic catheter is patent and draining 20-70mL/hr. Patient has an order for permacath insertion. Radiology has been notified. Will continue to follow up. Emergency one MD consent in the chart. Right femoral Nba catheter with pigtail that patent and saline locked at this time. Patient skin remains intact. Patient bed in low position with bed alarm on and call light in reach at this time.
--- NOTE | 2019-02-11 12:16 | GI Progress Note ---
Assessment/Plan Problems: (1) CHF (congestive heart failure) ICD Codes: I50.9 - Heart failure, unspecified SNOMED: 85818260 (2) End-stage renal disease ICD Codes: N18.6 - End stage renal disease SNOMED: 65258679 (3) Shock liver ICD Codes: K72.00 - Acute and subacute hepatic failure without coma SNOMED: 217933346 (4) Abnormal LFTs ICD Codes: R94.5 - Abnormal results of liver function studies SNOMED: 817995360 (5) Anemia ICD Codes: D64.9 - Anemia, unspecified SNOMED: 371109791 Status: unchanged Status Narrative Discussed with Dr. Andrew. Assessment/Plan 1. History of COPD. 2. Coronary artery disease. 3. History of atrial fibrillation. 4. Hypertension. 5. Hyperlipidemia. 6. Diabetes. 7. Peripheral vascular disease with bilateral amputations. 8. Anemia. 9. GERD. 10. Constipation 11. dysphagia OB stool negative Hep C positive OGTF on hold for weaning tube feedings per RD respiratory care fu labs pending possible extubation outpatient Hep C tx The patient was seen and examined at bedside and all new and available data was reviewed in the patients chart. I agree with the above findings, impression and plan. (Patient seen earlier today. Signature stamp does not reflect patient encounter time.). - Kelvin Andrew MD Subjective Subjective limited Objective Last 24 Hour Vital Signs Date Time Temp Pulse Resp B/P (MAP) Pulse Ox O2 Delivery O2 Flow Rate FiO2 02/11/19 12:00 Mechanical Ventilator 02/11/19 12:00 97.3 89 26 119/55 (76) 100 02/11/19 11:00 86 26 121/51 (74) 100 02/11/19 10:48 Mechanical Ventilator 45 02/11/19 10:48 98 27 45 02/11/19 10:48 Mechanical Ventilator 45 02/11/19 10:00 84 26 125/63 (83) 100 02/11/19 09:29 88 26 45 02/11/19 09:00 86 26 109/58 (75) 99 02/11/19 08:00 89 02/11/19 08:00 98.6 90 26 125/60 (81) 98 02/11/19 08:00 Mechanical Ventilator 02/11/19 08:00 45 02/11/19 07:02 84 26 99 Mechanical Ventilator 45 02/11/19 07:00 85 26 45 02/11/19 07:00 84 26 126/59 (81) 100 02/11/19 06:55 85 26 98 Mechanical Ventilator 45 02/11/19 06:00 84 26 115/54 (74) 100 02/11/19 05:13 90 26 45 02/11/19 05:00 88 26 120/54 (76) 97 02/11/19 04:00 Mechanical Ventilator 02/11/19 04:00 45 02/11/19 04:00 87 02/11/19 04:00 98.0 87 26 139/67 (91) 97 02/11/19 03:28 91 26 97 Mechanical Ventilator 45 02/11/19 03:18 87 26 97 Mechanical Ventilator 45 02/11/19 03:18 87 26 45 02/11/19 03:00 83 26 128/52 (77) 96 02/11/19 02:00 85 26 129/56 (80) 96 02/11/19 01:00 86 25 125/52 (76) 96 02/11/19 00:55 85 26 45 02/11/19 00:00 98.4 85 26 136/66 (89) 97 02/11/19 00:00 45 02/11/19 00:00 89 02/11/19 00:00 Mechanical Ventilator 02/10/19 23:10 84 26 98 Mechanical Ventilator 45 02/10/19 23:03 84 26 97 Mechanical Ventilator 45 02/10/19 23:00 84 26 45 02/10/19 23:00 84 26 97 Mechanical Ventilator 45 02/10/19 23:00 69 26 125/84 (98) 98 02/10/19 22:00 83 26 134/63 (86) 98 02/10/19 21:21 84 26 45 02/10/19 21:00 85 26 117/54 (75) 96 02/10/19 20:00 98.6 85 26 116/52 (73) 94 02/10/19 20:00 45 02/10/19 20:00 85 02/10/19 20:00 Mechanical Ventilator 02/10/19 19:31 86 26 95 Mechanical Ventilator 45 02/10/19 19:21 87 26 95 Mechanical Ventilator 45 02/10/19 19:21 87 26 45 02/10/19 18:00 89 26 130/62 (84) 95 02/10/19 17:09 88 23 45 02/10/19 17:00 86 26 130/62 (84) 95 02/10/19 16:00 Mechanical Ventilator 02/10/19 16:00 45 02/10/19 16:00 88 02/10/19 16:00 98.6 92 26 123/58 (79) 94 02/10/19 15:08 94 28 96 Mechanical Ventilator 50 02/10/19 15:08 94 28 45 02/10/19 15:00 45 02/10/19 15:00 90 26 117/59 (78) 95 02/10/19 14:59 91 22 95 Mechanical Ventilator 45 02/10/19 14:00 93 25 123/57 (79) 99 02/10/19 13:10 45 02/10/19 13:09 92 26 45 02/10/19 13:00 90 25 129/59 (82) 95 Intake and Output 02/10/19 02/11/19 18:59 06:59 Intake Total 520 ml 415 ml Output Total 570 ml 800 ml Balance -50 ml -385 ml Free Water 200 ml 30 ml IV Total 160 ml Tube Feeding 140 ml 385 ml Other 20 ml Output Urine Total 570 ml 800 ml Laboratory Tests Test 02/11/19 04:00 02/11/19 07:39 Arterial Blood pH 7.533 (7.350-7.450) Arterial Blood Partial Pressure CO2 27.2 mmHg (35.0-45.0) L Arterial Blood Partial Pressure O2 63.5 mmHg (75.0-100.0) L Arterial Blood HCO3 22.4 mmol/L (22.0-26.0) Arterial Blood Oxygen Saturation 93.3 % (95-100) L Arterial Blood Base Excess 0.4 (-2-2) Trevor Test Positive White Blood Count 12.7 K/UL (4.8-10.8) H Red Blood Count 3.18 M/UL (4.70-6.10) L Hemoglobin 9.1 G/DL (14.2-18.0) L Hematocrit 28.8 % (42.0-52.0) L Mean Corpuscular Volume 91 FL (80-99) Mean Corpuscular Hemoglobin 28.5 PG (27.0-31.0) Mean Corpuscular Hemoglobin Concent 31.5 G/DL (32.0-36.0) L Red Cell Distribution Width 15.9 % (11.6-14.8) H Platelet Count 97 K/UL (150-450) L Mean Platelet Volume 9.0 FL (6.5-10.1) Neutrophils (%) (Auto) % (45.0-75.0) Lymphocytes (%) (Auto) % (20.0-45.0) Monocytes (%) (Auto) % (1.0-10.0) Eosinophils (%) (Auto) % (0.0-3.0) Basophils (%) (Auto) % (0.0-2.0) Differential Total Cells Counted 100 Neutrophils % (Manual) 84 % (45-75) H Lymphocytes % (Manual) 8 % (20-45) L Monocytes % (Manual) 3 % (1-10) Eosinophils % (Manual) 5 % (0-3) H Basophils % (Manual) 0 % (0-2) Band Neutrophils 0 % (0-8) Platelet Estimate Decreased L Platelet Morphology Normal Polychromasia 1+ Hypochromasia 1+ Anisocytosis 1+ Sodium Level 142 MMOL/L (136-145) Potassium Level 3.4 MMOL/L (3.5-5.1) L Chloride Level 108 MMOL/L (98-107) H Carbon Dioxide Level 26 MMOL/L (21-32) Anion Gap 8 mmol/L (5-15) Blood Urea Nitrogen 51 mg/dL (7-18) H Creatinine 5.5 MG/DL (0.55-1.30) H Estimat Glomerular Filtration Rate 10.4 mL/min (>60) Glucose Level 213 MG/DL (74-106) H Calcium Level 6.9 MG/DL (8.5-10.1) L Total Bilirubin 0.6 MG/DL (0.2-1.0) Aspartate Amino Transf (AST/SGOT) 21 U/L (15-37) Alanine Aminotransferase (ALT/SGPT) 37 U/L (12-78) Alkaline Phosphatase 84 U/L (46-116) Total Protein 5.7 G/DL (6.4-8.2) L Albumin 1.9 G/DL (3.4-5.0) L Globulin 3.8 g/dL Albumin/Globulin Ratio 0.5 (1.0-2.7) L Height (Feet): 5 Height (Inches): 3.00 Weight (Pounds): 133 General Appearance: no apparent distress Cardiovascular: normal rate Respiratory/Chest: no respiratory distress Abdominal Exam: normal bowel sounds, non tender, soft, other - OGT Extremities: non-tender Rashi Hudson NP Feb 11, 2019 12:16
[2019-02-11] MEDS ORDERED: Heparin Sod 1000 units/ml 10ml IV ONE (12:45)
--- NOTE | 2019-02-11 13:55 | NUR ---
NURSE NOTES: scada technician Monty notified me that the note that the doctor wrote for the emergency MD consent for Perma Cath placement is not sufficient per hospital policy. Paged Dr Quezada at this time. Awaiting call back. Addendum: 02/11/19 at 1745 by Meme Giraldo RN Blood pressure 105/57, HR 83, SpO2 97%, and RR 26.
--- NOTE | 2019-02-11 13:59 | NUR ---
RESPIRATORY NOTE: Attempted to wean patient however he failed weaning criteria. Patient was extremely agitated and could not maintain adequate tidal volumes. Placed back onto previous settings.
--- NOTE | 2019-02-11 15:30 | Surgery Progress Note ---
Surgery Progress Note Subjective Procedure Performed right femoral temporary hemodialysis catheter insertion Additional Comments Patient seen and examined bedside. No acute events. Patient on ventilatory support still. Patient awake alert and states he is doing well by nodding his head. He is responsive and seems fairly cognitively intact. Patient requires continued dialysis. He temporarily has a temporary hemodialysis line that was placed in the right femoral prior. He will require more long-term access and medically necessary for placement of permacath until long-term fistula or other methods can be obtained. Current temporary hemodialysis catheter should be discontinued given location patient's medical conditions and its has new catheters placed. Objective Last 24 Hour Vital Signs Date Time Temp Pulse Resp B/P (MAP) Pulse Ox O2 Delivery O2 Flow Rate FiO2 02/11/19 15:12 83 26 45 02/11/19 12:51 91 32 45 02/11/19 12:00 84 02/11/19 12:00 Mechanical Ventilator 02/11/19 12:00 97.3 89 26 119/55 (76) 100 02/11/19 12:00 45 02/11/19 11:00 86 26 121/51 (74) 100 02/11/19 10:48 Mechanical Ventilator 45 02/11/19 10:48 98 27 45 02/11/19 10:48 Mechanical Ventilator 45 02/11/19 10:00 84 26 125/63 (83) 100 02/11/19 09:29 88 26 45 02/11/19 09:00 86 26 109/58 (75) 99 02/11/19 08:00 89 02/11/19 08:00 98.6 90 26 125/60 (81) 98 02/11/19 08:00 Mechanical Ventilator 02/11/19 08:00 45 02/11/19 07:02 84 26 99 Mechanical Ventilator 45 02/11/19 07:00 85 26 45 02/11/19 07:00 84 26 126/59 (81) 100 02/11/19 06:55 85 26 98 Mechanical Ventilator 45 02/11/19 06:00 84 26 115/54 (74) 100 02/11/19 05:13 90 26 45 02/11/19 05:00 88 26 120/54 (76) 97 02/11/19 04:00 Mechanical Ventilator 02/11/19 04:00 45 02/11/19 04:00 87 02/11/19 04:00 98.0 87 26 139/67 (91) 97 02/11/19 03:28 91 26 97 Mechanical Ventilator 45 02/11/19 03:18 87 26 97 Mechanical Ventilator 45 02/11/19 03:18 87 26 45 02/11/19 03:00 83 26 128/52 (77) 96 02/11/19 02:00 85 26 129/56 (80) 96 02/11/19 01:00 86 25 125/52 (76) 96 02/11/19 00:55 85 26 45 02/11/19 00:00 98.4 85 26 136/66 (89) 97 02/11/19 00:00 45 02/11/19 00:00 89 02/11/19 00:00 Mechanical Ventilator 02/10/19 23:10 84 26 98 Mechanical Ventilator 45 02/10/19 23:03 84 26 97 Mechanical Ventilator 45 02/10/19 23:00 84 26 45 02/10/19 23:00 84 26 97 Mechanical Ventilator 45 02/10/19 23:00 69 26 125/84 (98) 98 02/10/19 22:00 83 26 134/63 (86) 98 02/10/19 21:21 84 26 45 02/10/19 21:00 85 26 117/54 (75) 96 02/10/19 20:00 98.6 85 26 116/52 (73) 94 02/10/19 20:00 45 02/10/19 20:00 85 02/10/19 20:00 Mechanical Ventilator 02/10/19 19:31 86 26 95 Mechanical Ventilator 45 02/10/19 19:21 87 26 95 Mechanical Ventilator 45 02/10/19 19:21 87 26 45 02/10/19 18:00 89 26 130/62 (84) 95 02/10/19 17:09 88 23 45 02/10/19 17:00 86 26 130/62 (84) 95 02/10/19 16:00 Mechanical Ventilator 02/10/19 16:00 45 02/10/19 16:00 88 02/10/19 16:00 98.6 92 26 123/58 (79) 94 I&O Intake and Output 02/10/19 02/11/19 18:59 06:59 Intake Total 520 ml 415 ml Output Total 570 ml 800 ml Balance -50 ml -385 ml Free Water 200 ml 30 ml IV Total 160 ml Tube Feeding 140 ml 385 ml Other 20 ml Output Urine Total 570 ml 800 ml Dressing: dry Wound: clean Cardiovascular: RSR Respiratory: clear Abdomen: soft, non-tender, present bowel sounds, non-distended Extremities: other Laboratory Tests Test 02/11/19 04:00 02/11/19 07:39 Arterial Blood pH 7.533 (7.350-7.450) Arterial Blood Partial Pressure CO2 27.2 mmHg (35.0-45.0) L Arterial Blood Partial Pressure O2 63.5 mmHg (75.0-100.0) L Arterial Blood HCO3 22.4 mmol/L (22.0-26.0) Arterial Blood Oxygen Saturation 93.3 % (95-100) L Arterial Blood Base Excess 0.4 (-2-2) Trevor Test Positive White Blood Count 12.7 K/UL (4.8-10.8) H Red Blood Count 3.18 M/UL (4.70-6.10) L Hemoglobin 9.1 G/DL (14.2-18.0) L Hematocrit 28.8 % (42.0-52.0) L Mean Corpuscular Volume 91 FL (80-99) Mean Corpuscular Hemoglobin 28.5 PG (27.0-31.0) Mean Corpuscular Hemoglobin Concent 31.5 G/DL (32.0-36.0) L Red Cell Distribution Width 15.9 % (11.6-14.8) H Platelet Count 97 K/UL (150-450) L Mean Platelet Volume 9.0 FL (6.5-10.1) Neutrophils (%) (Auto) % (45.0-75.0) Lymphocytes (%) (Auto) % (20.0-45.0) Monocytes (%) (Auto) % (1.0-10.0) Eosinophils (%) (Auto) % (0.0-3.0) Basophils (%) (Auto) % (0.0-2.0) Differential Total Cells Counted 100 Neutrophils % (Manual) 84 % (45-75) H Lymphocytes % (Manual) 8 % (20-45) L Monocytes % (Manual) 3 % (1-10) Eosinophils % (Manual) 5 % (0-3) H Basophils % (Manual) 0 % (0-2) Band Neutrophils 0 % (0-8) Platelet Estimate Decreased L Platelet Morphology Normal Polychromasia 1+ Hypochromasia 1+ Anisocytosis 1+ Sodium Level 142 MMOL/L (136-145) Potassium Level 3.4 MMOL/L (3.5-5.1) L Chloride Level 108 MMOL/L (98-107) H Carbon Dioxide Level 26 MMOL/L (21-32) Anion Gap 8 mmol/L (5-15) Blood Urea Nitrogen 51 mg/dL (7-18) H Creatinine 5.5 MG/DL (0.55-1.30) H Estimat Glomerular Filtration Rate 10.4 mL/min (>60) Glucose Level 213 MG/DL (74-106) H Calcium Level 6.9 MG/DL (8.5-10.1) L Total Bilirubin 0.6 MG/DL (0.2-1.0) Aspartate Amino Transf (AST/SGOT) 21 U/L (15-37) Alanine Aminotransferase (ALT/SGPT) 37 U/L (12-78) Alkaline Phosphatase 84 U/L (46-116) Total Protein 5.7 G/DL (6.4-8.2) L Albumin 1.9 G/DL (3.4-5.0) L Globulin 3.8 g/dL Albumin/Globulin Ratio 0.5 (1.0-2.7) L Plan Problems: (1) ARDS (adult respiratory distress syndrome) (2) Anemia (3) Elevated troponin (4) MARY (acute kidney injury) (5) COPD with exacerbation (6) Abnormal LFTs Assessment & Plan: Abnormalities likely from shock liver. Gallbladder wall thickening nonspecific. Sonographic Rojas's is equivocal due to patient's condition. Trace ascites Bilateral pleural effusions. Suspected medical renal disease. Suspected nonobstructive stone in the right kidney. Trend labs Leukocytosis trending down Anemia LFTs normal now Improving (7) COPD (chronic obstructive pulmonary disease) (8) Respiratory distress (9) Pneumonia (10) HTN (hypertension) (11) Epileptic seizure, generalized (12) Shock liver Assessment & Plan: Shock liver likely from hypotension and cardiovascular arrest. Resuscitation with IV fluids ICU care and management Trend labs overall improving We will follow with recommendations (13) Suprapubic catheter Hari Batres Feb 11, 2019 15:30
[2019-02-11] MEDS: Acetaminophen 650mg/20.3ml GT PRN (15:38)
--- NOTE | 2019-02-11 15:55 | NUR ---
RD ASSESSMENT & RECOMMENDATIONS SEE CARE ACTIVITY FOR COMPLETE ASSESSMENT DAILY ESTIMATED NEEDS: Needs based on HD, Critical Care/ 57kg 22-30 kcals/kg 4131-4042 total kcals 1.2-2 g protein/kg 68-114 g total protein 20-22 mL/kg 9487-3791 total fluid mLs NUTRITION DIAGNOSIS: * Swallowing difficulty R/T respiratory status as evidenced by s/p code blue, orally intubated and sedated in ICU, on OGT feeds * Altered nutrition related lab values R/T renal dysfunction, DM as evidenced by elev creat(5.5) now on HD, elev BNP (>60152), elev BGs(300's-> 213 198). CURRENT TF:Nepro @35ml/hr x24 hrs + PS x2 PO DIET RECOMMENDATIONS: REPAIR CAMERAMAN eval once extubated -> CCHO MED, RENAL ENTERAL NUTRITION RECOMMENDATIONS: Nepro @ 35ml/hr x 24 hrs to provide 840ml, 1512kcal, 68g prot, 640ml free water * Maintain current TF * HOB over 30 degrees/ water flush per MD ADDITIONAL RECOMMENDATIONS: * Calibrated bedscale wt for accurate CBW * Monitor renal fxn and lytes -> replete as needed (low K), rec to check phos * Monitor BGs closely, consider long acting insulin for improved BG control .
--- NOTE | 2019-02-11 16:00 | NUR ---
NURSE NOTES: Patient resting at this time with no sign of acute distress. Patient resting at this time. Patient blood pressure 1261, HR 87, SpO2 99%, and RR 24. Patient resting in bed at [facility]. Ventilator setting AC 26, tidal volume 550, FiO2 45%, and PEEP 5. Patient failed weaning due to anxiety and increased work of breathing. Tube feeding continued at this time. OGT patent and verified via auscultation at this time. Patient's suprapubic catheter is patent and draining 20-30mL/hr. Patient has an order for PermaCath insertion. MD consent obtained by Dr Quezada and Dr Batres. Radiology has been notified. Emergency MD consent in the chart. Right femoral Nba catheter with pigtail patent and saline locked at this time. Patient skin remains intact. Patient bed in low position with bed alarm on and call light in reach at this time. Addendum: 02/11/19 at 1743 by Meme Giraldo RN Patient cleaned and repositioned and oral care performed at this time.
--- NOTE | 2019-02-11 16:28 | NUR ---
*-* INSURANCE *-* UPDATED CLINICALS AND REVIEWS HAVE BEEN FAXED TO: /[facility] @ [phone] - [facility]# [id number] NCM: NICHOLAS Martin P- [phone] F- [phone]....REVIEW/CLINICAL
--- NOTE | 2019-02-11 16:39 | Hematology/Onc Progress Note ---
Assessment/Plan Assessment/Plan Assessment and Recs: # Anemia of chronic disease due to underlying chronic medical issues, multifactorial --> Anemia workup has been ordered, rule out gi bleed --> No evidence of hemolysis is noted, peripheral smear has been reviewed. --> Hgb goal >7. Transfuse prn. --> Epogen and iron both started given ckd, ferritin only 274 (needs to be >500 for esrd pts) --> Medications have been reviewed --> low threshold for gi evaluation in case has occult + --> hgb trend 9.9-->9.4-->9.1 # Leukocytosis/elevated white blood cell count, unspecified likely related to underlying stress reaction, pna, ARDS --> have reviewed peripheral smear and bandemia/neutrophilia noted --> continue antibiotics if they have been started by ID team --> 23-->17-->20k-->18k # Thrombocytopenia - potential causes multifactorial, evaluate liver and viral etiologies to begin, also could be related to underlying medications patient has received. may be due to Hep C++ (need to confirm) --> Hep panel and HIV is negative --> US abd to evaluate for cirrhosis with trace ascites --> Peripheral smear ordered to evaluate for blasts /schistocytes --> abx and other meds have been reviewed --> ok for ppx if plt >50k w/ either heparin or lovenox # Respiratory distress with ards --> has been intubated, on a vent --> as per pulm recs -> vent adjustment per pulm # Chronic Obstructive Pulmonary Disease with exacerbation --> breathing treatments on prn basis # Pneumonia --> on abx per id # ESRD - STARTED HD via femoral Junior. ++ PermaCath + AVF. --> hd per renal --> hd on 02/11 # Elevated troponin can be renal related --> per cards, r/o acs # Bilateral amputations # GERD # ETOH abuse The timing of this note does not necessarily reflect the time of the patient was seen. Greatly appreciate consultation! Subjective Cardiovascular: Denies: no symptoms, chest pain, edema, irregular heart rate, lightheadedness, palpitations, syncope, other Respiratory: Denies: no symptoms, cough, shortness of breath, SOB with excertion, SOB at rest, sputum, wheezing, other Gastrointestinal/Abdominal: Denies: no symptoms, abdomen distended, abdominal pain, black stools, tarry stools, blood in stool, constipated, diarrhea, difficulty swallowing, nausea, poor appetite, poor fluid intake, rectal bleeding , vomiting, other Genitourinary: Denies: no symptoms, burning, discharge, frequency, flank pain, hematuria, incontinence, pain, urgency, other Endocrine: Denies: no symptoms, excessive sweating, flushing, intolerance to cold, intolerance to heat, increased hunger, increased thirst, increased urine, unexplained weight gain, unexplained weight loss, other Hematologic/Lymphatic: Denies: no symptoms, anemia, easy bleeding, easy bruising, adenopathy, other Allergies: Coded Allergies: No Known Allergies (Unverified , 09/25/17) Subjective 02/08: is on jose and vanc, broad spectrum abx, no f/c, vent adjusted per pulm 02/10: given k, remains on vent, in icu, vent weaning pending 02/11: no events noted, no f/c, remains in icu, is on vent Objective Objective Current Medications Medications (Trade) Dose Ordered Sig/Joe Route PRN Reason Start Time Stop Time Status Last Admin Dose Admin Acetaminophen (Tylenol) 650 mg Q4H PRN GT Mild Pain/Temp > 100.5 02/11/19 15:34 03/13/19 15:33 02/11/19 15:38 Al Hydroxide/Mg Hydroxide (Mylanta) 30 ml PRN ORAL 02/06/19 05:45 03/08/19 05:44 Chlorhexidine Gluconate (Falguni-Hex 2%) 1 applic DAILY@1999 TOPIC 02/06/19 20:00 03/08/19 19:59 02/10/19 20:19 Dextrose (Dextrose 50%) 25 ml Q30M PRN IV Hypoglycemia 02/06/19 11:30 03/08/19 11:29 Dextrose (Dextrose 50%) 50 ml Q30M PRN IV Hypoglycemia 02/06/19 11:30 03/08/19 11:29 Epoetin Mayo (Epoetin Mayo(ESRD on dialysis)) 10,000 unit MON-MON-MON SUBQ 02/06/19 21:00 03/08/19 20:59 02/08/19 20:44 Heparin Sodium (Porcine) (Heparin 5000 units/ml) 5,000 units EVERY 12 HOURS SUBQ 02/06/19 09:00 03/08/19 08:59 02/10/19 21:02 Insulin Aspart (NovoLOG) Q6HR SUBQ 02/06/19 12:00 03/08/19 11:59 02/11/19 11:56 Lansoprazole (Prevacid) 30 mg DAILY NG 02/06/19 09:00 03/08/19 08:59 02/11/19 09:45 Lorazepam (Ativan 2mg/ml 1ml) 0.5 mg Q2H PRN IV For Anxiety 02/09/19 22:15 02/16/19 22:14 02/10/19 01:51 Meropenem 500 mg/ Sodium Chloride 55 ml @ 110 mls/hr DAILY IVPB 02/06/19 13:00 02/15/19 12:59 02/11/19 11:08 Morphine Sulfate (Morphine Sulfate) 2 mg Q2H PRN IVP For Pain 02/09/19 23:45 02/16/19 23:44 02/11/19 13:46 Sodium Chloride 1,000 ml @ 500 mls/hr Q2H PRN IVLG sbp<90 during hd 02/11/19 12:32 03/13/19 12:31 Last 24 Hour Vital Signs Date Time Temp Pulse Resp B/P (MAP) Pulse Ox O2 Delivery O2 Flow Rate FiO2 02/11/19 15:12 83 26 45 02/11/19 12:51 91 32 45 02/11/19 12:00 84 02/11/19 12:00 Mechanical Ventilator 02/11/19 12:00 97.3 89 26 119/55 (76) 100 02/11/19 12:00 45 02/11/19 11:00 86 26 121/51 (74) 100 02/11/19 10:48 Mechanical Ventilator 45 02/11/19 10:48 98 27 45 02/11/19 10:48 Mechanical Ventilator 45 02/11/19 10:00 84 26 125/63 (83) 100 02/11/19 09:29 88 26 45 02/11/19 09:00 86 26 109/58 (75) 99 02/11/19 08:00 89 02/11/19 08:00 98.6 90 26 125/60 (81) 98 02/11/19 08:00 Mechanical Ventilator 02/11/19 08:00 45 02/11/19 07:02 84 26 99 Mechanical Ventilator 45 02/11/19 07:00 85 26 45 02/11/19 07:00 84 26 126/59 (81) 100 02/11/19 06:55 85 26 98 Mechanical Ventilator 45 02/11/19 06:00 84 26 115/54 (74) 100 02/11/19 05:13 90 26 45 02/11/19 05:00 88 26 120/54 (76) 97 02/11/19 04:00 Mechanical Ventilator 02/11/19 04:00 45 02/11/19 04:00 87 02/11/19 04:00 98.0 87 26 139/67 (91) 97 02/11/19 03:28 91 26 97 Mechanical Ventilator 45 02/11/19 03:18 87 26 97 Mechanical Ventilator 45 02/11/19 03:18 87 26 45 02/11/19 03:00 83 26 128/52 (77) 96 02/11/19 02:00 85 26 129/56 (80) 96 02/11/19 01:00 86 25 125/52 (76) 96 02/11/19 00:55 85 26 45 02/11/19 00:00 98.4 85 26 136/66 (89) 97 02/11/19 00:00 45 02/11/19 00:00 89 02/11/19 00:00 Mechanical Ventilator 02/10/19 23:10 84 26 98 Mechanical Ventilator 45 02/10/19 23:03 84 26 97 Mechanical Ventilator 45 02/10/19 23:00 84 26 45 02/10/19 23:00 84 26 97 Mechanical Ventilator 45 02/10/19 23:00 69 26 125/84 (98) 98 02/10/19 22:00 83 26 134/63 (86) 98 02/10/19 21:21 84 26 45 02/10/19 21:00 85 26 117/54 (75) 96 02/10/19 20:00 98.6 85 26 116/52 (73) 94 02/10/19 20:00 45 02/10/19 20:00 85 02/10/19 20:00 Mechanical Ventilator 02/10/19 19:31 86 26 95 Mechanical Ventilator 45 02/10/19 19:21 87 26 95 Mechanical Ventilator 45 02/10/19 19:21 87 26 45 02/10/19 18:00 89 26 130/62 (84) 95 02/10/19 17:09 88 23 45 02/10/19 17:00 86 26 130/62 (84) 95 02/10/19 16:00 Mechanical Ventilator 02/10/19 16:00 45 02/10/19 16:00 88 02/10/19 16:00 98.6 92 26 123/58 (79) 94 02/10/19 15:08 94 28 96 Mechanical Ventilator 50 02/10/19 15:08 94 28 45 02/10/19 15:00 45 02/10/19 15:00 90 26 117/59 (78) 95 02/10/19 14:59 91 22 95 Mechanical Ventilator 45 02/10/19 14:00 93 25 123/57 (79) 99 02/10/19 13:10 45 02/10/19 13:09 92 26 45 02/10/19 13:00 90 25 129/59 (82) 95 02/10/19 12:00 92 02/10/19 12:00 98.9 91 30 124/58 (80) 96 02/10/19 12:00 50 02/10/19 12:00 Mechanical Ventilator 02/10/19 11:04 89 24 96 Mechanical Ventilator 50 02/10/19 11:04 89 24 50 02/10/19 11:00 91 23 133/58 (83) 100 02/10/19 10:54 89 24 96 Mechanical Ventilator 50 02/10/19 10:00 99.6 91 25 130/91 (104) 96 02/10/19 09:06 95 29 50 02/10/19 09:00 94 24 123/52 (75) 96 02/10/19 08:00 50 02/10/19 08:00 Mechanical Ventilator 02/10/19 08:00 100 02/10/19 08:00 100.3 94 27 122/50 (74) 93 02/10/19 07:17 100 29 50 50 02/10/19 07:16 93 31 98 Mechanical Ventilator 50 02/10/19 07:15 96 02/10/19 07:08 85 26 97 Mechanical Ventilator 50 02/10/19 07:00 90 25 135/57 (83) 95 8/4/19 06:00 90 25 145/66 (92) 95 02/10/19 05:30 93 25 50 02/10/19 05:06 95 30 146/64 (91) 94 02/10/19 04:00 98.0 91 30 138/65 (89) 86 02/10/19 04:00 50 02/10/19 04:00 Mechanical Ventilator 02/10/19 04:00 95 02/10/19 03:17 94 27 99 Mechanical Ventilator 50 02/10/19 03:08 92 25 98 Mechanical Ventilator 50 02/10/19 03:08 92 24 50 02/10/19 03:00 92 25 137/93 (108) 94 02/10/19 02:00 91 25 135/56 (82) 97 02/10/19 01:00 94 26 135/53 (80) 99 02/10/19 00:53 101 24 50 02/10/19 00:00 50 02/10/19 00:00 100 02/10/19 00:00 Mechanical Ventilator 02/10/19 00:00 102 24 135/57 (83) 94 02/09/19 23:22 99 26 100 Mechanical Ventilator 50 02/09/19 23:08 98 26 50 02/09/19 23:07 98 25 100 Mechanical Ventilator 50 02/09/19 23:00 97 22 141/75 (97) 98 02/09/19 22:00 97 26 138/64 (88) 100 02/09/19 21:20 95 21 50 02/09/19 21:00 96 25 145/69 (94) 100 02/09/19 20:00 91 02/09/19 20:00 Mechanical Ventilator 02/09/19 20:00 50 02/09/19 20:00 97.8 97 23 155/61 (92) 98 02/09/19 19:25 98 16 100 Mechanical Ventilator 50 02/09/19 19:02 98 23 50 02/09/19 19:01 98 23 98 Mechanical Ventilator 50 02/09/19 19:00 96 22 151/69 (96) 100 02/09/19 18:00 96 22 151/65 (93) 99 02/09/19 17:23 103 29 50 02/09/19 17:00 50 02/09/19 17:00 97 24 150/69 (96) 100 Intake and Output 02/10/19 02/11/19 19:00 07:00 Intake Total 520 ml 450 ml Output Total 570 ml 870 ml Balance -50 ml -420 ml Free Water 200 ml 30 ml IV Total 160 ml Tube Feeding 140 ml 420 ml Other 20 ml Output Urine Total 570 ml 870 ml Labs Test 02/08/19 17:10 02/09/19 04:30 02/09/19 15:25 02/09/19 16:10 Lactic Acid Level 1.90 mmol/L (0.4-2.0) White Blood Count 23.4 K/UL (4.8-10.8) 20.4 K/UL (4.8-10.8) Red Blood Count 3.29 M/UL (4.70-6.10) 3.16 M/UL (4.70-6.10) Hemoglobin 9.5 G/DL (14.2-18.0) 9.4 G/DL (14.2-18.0) Hematocrit 28.8 % (42.0-52.0) 27.2 % (42.0-52.0) Mean Corpuscular Volume 87 FL (80-99) 86 FL (80-99) Mean Corpuscular Hemoglobin 28.9 PG (27.0-31.0) 29.8 PG (27.0-31.0) Mean Corpuscular Hemoglobin Concent 33.1 G/DL (32.0-36.0) 34.7 G/DL (32.0-36.0) Red Cell Distribution Width 14.1 % (11.6-14.8) 13.8 % (11.6-14.8) Platelet Count 114 K/UL (150-450) 110 K/UL (150-450) Mean Platelet Volume 9.1 FL (6.5-10.1) 10.1 FL (6.5-10.1) Neutrophils (%) (Auto) % (45.0-75.0) % (45.0-75.0) Lymphocytes (%) (Auto) % (20.0-45.0) % (20.0-45.0) Monocytes (%) (Auto) % (1.0-10.0) % (1.0-10.0) Eosinophils (%) (Auto) % (0.0-3.0) % (0.0-3.0) Basophils (%) (Auto) % (0.0-2.0) % (0.0-2.0) Differential Total Cells Counted 100 100 Neutrophils % (Manual) 85 % (45-75) 82 % (45-75) Lymphocytes % (Manual) 10 % (20-45) 10 % (20-45) Monocytes % (Manual) 4 % (1-10) 6 % (1-10) Eosinophils % (Manual) 1 % (0-3) 2 % (0-3) Basophils % (Manual) 0 % (0-2) 0 % (0-2) Band Neutrophils 0 % (0-8) 0 % (0-8) Nucleated Red Blood Cells 1 /100 WBC Platelet Estimate Decreased Decreased Platelet Morphology Normal Normal Hypochromasia 2+ Anisocytosis 1+ Spherocytes 1+ Sodium Level 146 MMOL/L (136-145) 140 MMOL/L (136-145) Potassium Level 2.2 MMOL/L (3.5-5.1) 2.6 MMOL/L (3.5-5.1) Chloride Level 106 MMOL/L (98-107) 103 MMOL/L (98-107) Carbon Dioxide Level 30 MMOL/L (21-32) 25 MMOL/L (21-32) Anion Gap 10 mmol/L (5-15) 13 mmol/L (5-15) Blood Urea Nitrogen 65 mg/dL (7-18) 42 mg/dL (7-18) Creatinine 6.6 MG/DL (0.55-1.30) 4.6 MG/DL (0.55-1.30) Estimat Glomerular Filtration Rate 8.4 mL/min (>60) 12.8 mL/min (>60) Glucose Level 128 MG/DL (74-106) 331 MG/DL (74-106) Calcium Level 7.4 MG/DL (8.5-10.1) 7.0 MG/DL (8.5-10.1) Random Vancomycin Level 27.0 ug/mL Stool Occult Blood Negative (NEGATIVE) Red Blood Cell Morphology Normal Test 02/10/19 04:57 02/11/19 04:00 02/11/19 07:39 White Blood Count 18.3 K/UL (4.8-10.8) 12.7 K/UL (4.8-10.8) Red Blood Count 3.07 M/UL (4.70-6.10) 3.18 M/UL (4.70-6.10) Hemoglobin 9.1 G/DL (14.2-18.0) 9.1 G/DL (14.2-18.0) Hematocrit 27.1 % (42.0-52.0) 28.8 % (42.0-52.0) Mean Corpuscular Volume 88 FL (80-99) 91 FL (80-99) Mean Corpuscular Hemoglobin 29.6 PG (27.0-31.0) 28.5 PG (27.0-31.0) Mean Corpuscular Hemoglobin Concent 33.5 G/DL (32.0-36.0) 31.5 G/DL (32.0-36.0) Red Cell Distribution Width 14.3 % (11.6-14.8) 15.9 % (11.6-14.8) Platelet Count 109 K/UL (150-450) 97 K/UL (150-450) Mean Platelet Volume 9.6 FL (6.5-10.1) 9.0 FL (6.5-10.1) Neutrophils (%) (Auto) % (45.0-75.0) % (45.0-75.0) Lymphocytes (%) (Auto) % (20.0-45.0) % (20.0-45.0) Monocytes (%) (Auto) % (1.0-10.0) % (1.0-10.0) Eosinophils (%) (Auto) % (0.0-3.0) % (0.0-3.0) Basophils (%) (Auto) % (0.0-2.0) % (0.0-2.0) Differential Total Cells Counted 100 100 Neutrophils % (Manual) 85 % (45-75) 84 % (45-75) Lymphocytes % (Manual) 7 % (20-45) 8 % (20-45) Monocytes % (Manual) 7 % (1-10) 3 % (1-10) Eosinophils % (Manual) 1 % (0-3) 5 % (0-3) Basophils % (Manual) 0 % (0-2) 0 % (0-2) Band Neutrophils 0 % (0-8) 0 % (0-8) Platelet Estimate Decreased Decreased Platelet Morphology Normal Normal Polychromasia 1+ 1+ Hypochromasia 1+ 1+ Anisocytosis 1+ 1+ Sodium Level 146 MMOL/L (136-145) 142 MMOL/L (136-145) Potassium Level 2.4 MMOL/L (3.5-5.1) 3.4 MMOL/L (3.5-5.1) Chloride Level 107 MMOL/L (98-107) 108 MMOL/L (98-107) Carbon Dioxide Level 27 MMOL/L (21-32) 26 MMOL/L (21-32) Anion Gap 13 mmol/L (5-15) 8 mmol/L (5-15) Blood Urea Nitrogen 50 mg/dL (7-18) 51 mg/dL (7-18) Creatinine 5.1 MG/DL (0.55-1.30) 5.5 MG/DL (0.55-1.30) Estimat Glomerular Filtration Rate 11.4 mL/min (>60) 10.4 mL/min (>60) Glucose Level 198 MG/DL (74-106) 213 MG/DL (74-106) Calcium Level 7.0 MG/DL (8.5-10.1) 6.9 MG/DL (8.5-10.1) Troponin I 0.261 ng/mL (0.000-0.056) Pro-B-Type Natriuretic Peptide > 89018 pg/mL (0-125) Arterial Blood pH 7.533 (7.350-7.450) Arterial Blood Partial Pressure CO2 27.2 mmHg (35.0-45.0) Arterial Blood Partial Pressure O2 63.5 mmHg (75.0-100.0) Arterial Blood HCO3 22.4 mmol/L (22.0-26.0) Arterial Blood Oxygen Saturation 93.3 % (95-100) Arterial Blood Base Excess 0.4 (-2-2) Trevor Test Positive Total Bilirubin 0.6 MG/DL (0.2-1.0) Aspartate Amino Transf (AST/SGOT) 21 U/L (15-37) Alanine Aminotransferase (ALT/SGPT) 37 U/L (12-78) Alkaline Phosphatase 84 U/L (46-116) Total Protein 5.7 G/DL (6.4-8.2) Albumin 1.9 G/DL (3.4-5.0) Globulin 3.8 g/dL Albumin/Globulin Ratio 0.5 (1.0-2.7) Height (Feet): 5 Height (Inches): 3.00 Weight (Pounds): 133 Objective PE Gen: fatigued, on mechanical Ventilator Head: normocephalic, atraumatic, ++ ETT, ++ og Eyes: bilateral eye PERRL, b/l eye EOMI Respiratory: Bilateral wheezing, rhonchi ++ vent Cardiovascular: normal heart sound, normal peripheral pulses, rrr GI: non tender, soft, no guarding, no rebound ++ peg Msk normal inspection Neuro: sedated, no focal signs Skin: no rash, warm/dry Nicho Rebolledo MD Feb 11, 2019 16:39
--- NOTE | 2019-02-11 18:00 | NUR ---
NURSE NOTES: Patient resting in bed with no sign of acute distress. Blood pressure 120/55, HR 79, SpO2 96% on ventilator with setting of AC 26, tidal volume 550, FiO2 45%, and PEEP 5. Patient bed in low position with bed alarm on and call light in reach. Patient complaining of pain when coughing. Tylenol given. Will continue to monitor.
--- NOTE | 2019-02-11 19:05 | NUR ---
HAND-OFF: Report given to YU Ariat. Patient vital signs stable with blood pressure 120/55, HR 81, RR 26, and SpO2 97%. Patient showing no sign of acute distress. Perma Cath unable to be inserted today. Endorsed to follow up. Consent in the chart.
--- NOTE | 2019-02-11 19:30 | NUR ---
NURSE NOTES:Received pt awake,alert ,following simple commands, orally intubated on ac mode, SR on the monitor, Bp stable, afebrile, not tolerating OGT fdg at this time, fdg on hold, dillan cath RT femoral with drgs dry and intact.. Was just dialyzed today with 1.5L out. suprapubic cath , to gravity with yellowish urine, moderate in amt. skin remained intact. Will continue to monitor.
[2019-02-11] MEDS: Dyna-Hex 2% Top Sol 2oz TOPIC SCH (20:07)
[2019-02-11] MEDS ORDERED: Sodium Bicarbonate 8.4% 50ml Inj ONE (20:44)
--- NOTE | 2019-02-11 20:52 | NUR ---
NURSE NOTES:Morphinev 2mg ivp given for c/o pain FLACC 7
[2019-02-11] MEDS: Epoetin Alfa-EPBX(ESRD on dialysis)10,000 unit/ml vial SUBQ SCH (21:16)
--- NOTE | 2019-02-11 22:00 | NUR ---
NURSE NOTES:Pain free at this time ,dozing on and off. Will continue to monitor.
[2019-02-12] VITALS (23 sets, daily range): BP systolic 93–143; BP diastolic 45–82
--- NOTE | 2019-02-12 | NUR ---
NURSE NOTES:pt had x1 pasty soft stool, sml in amt. unable to collect specimen. Partial bath was given.
--- NOTE | 2019-02-12 02:00 | NUR ---
NURSE NOTES:Pt so restless at this time, moving a lot in bed, soft wrist restraints maintained for safety.
[2019-02-12] MEDS: Morphine Sulfate 2mg/ml Inj(IV/IM USE ONLY) IVP PRN ×3 (03:55→23:22)
--- NOTE | 2019-02-12 03:56 | NUR ---
NURSE NOTES:Pt pointing throat pain-Morphine 2mg ivp given FLACC 7
[2019-02-12] MEDS: NovoLOG Insulin Flexpen SUBQ SCH ×4 (05:45→23:37)
[2019-02-12] MEDS: LORazepam Inj 2mg/ml 1ml IV PRN (05:50)
--- NOTE | 2019-02-12 05:50 | NUR ---
NURSE NOTES:Pt appeared anxious- ativan 0.5mg ivp was given.
--- NOTE | 2019-02-12 06:45 | Progress Note ---
DATE: 02/11/2019 CARDIOLOGY PROGRESS NOTE SUBJECTIVE: The patient remains on ventilator support. Efforts at weaning are ongoing. The patient has stable blood pressure, off pressors for several days. Monitored rhythm sinus with rare ectopics. PHYSICAL EXAMINATION: VITAL SIGNS: Blood pressure 115/54, pulse 84, respirations 26, and afebrile. LUNGS: Coarse breath sounds. Scattered rhonchi. HEART: Regular rhythm and rate. Normal S1 and S2. ABDOMEN: Soft. EXTREMITIES: A 1+ dependent edema. Right femoral Mahurkar catheter in place. LABORATORY DATA: Labs reviewed with white count 12.7 and hemoglobin 9.1. ABG, 7.53, 27, and 63. Albumin 1.9. Potassium 3.4, BUN 51, and creatinine 5.5. IMPRESSION: 1. Chronic kidney disease, stage 5. 2. Respiratory failure, status post full arrest. 3. Pmb-NG-gdwkvwcev infarction. 4. Sepsis with recovered shock. 5. Aspiration and healthcare-acquired pneumonia. PLAN: 1. Ventilator support with weaning. 2. Respiratory hygiene. 3. Antimicrobials. 4. Hemodialysis with ultrafiltration. 5. Add beta-artis. 6. DVT and stress ulcer prophylaxes. Jamari Gale M.D. : ALEX JOB#: [id number] CC:
--- NOTE | 2019-02-12 06:54 | NUR ---
NURSE NOTES:Morphine 2mg ivp was given due to pain FLACC7
--- NOTE | 2019-02-12 07:10 | NUR ---
RESPIRATORY NOTES: Received patient on ACVC RR 26, VT 550, FIO2 45%, PEEP +5. Intubated with 7.5 ETT at 23cm at the lip, secured with anchorfast. Bilateral breath sounds reveal rhonchi. Suctioned minimal amount of lundy secretions through the ETT and thin clear secretions orally. Patient is currently alert, awake, and slightly drowsy. Alarms are on and audible. Vent plugged into red outlet. Will continue to monitor throughout the day. Began weaning on patient at 0710. Placed on PS +10 PEEP +5 FIO2 45%. Will continue to monitor throughout the day.
--- NOTE | 2019-02-12 07:17 | NUR ---
HAND-OFF: Report given to Saurabh NICHOLAS.
--- NOTE | 2019-02-12 07:18 | NUR ---
NURSE NOTES: RECEIVED PATIENT FROM Nelson CROCKER RN. PATIENT IS SEEN RESTING IN BED, AWAKE AND RESPONSIVE. 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 ORALLY INTUBATED. ETT 7.5 AT 23CM LIP LINE. VENT SETTINGS OF AC 26, TV 550, FiO2 45%, PEEP 5. NO SIGS OF CARDIO OR RESPI DISTRESS OF THE MOMENT. NOTED OGT WITH GTF NEPRO AT 35ML/HR BUT ON NPO FOR WEANING TODAY. NOTED BW RESTRAINTS, NOTED TO BE PULLING OFF OBJECTS. WITH SUPRAPUBIC CATH, CONNECTED TO BAG, PATENT AND DRAINING URINE. NOTED R FEMORAL KIRSTIE CATH WITH PIGTAIL. FOR PROCEDURE TODAY. HOB ELEVATED. CALL LIGHT WITHIN REACH. BED AT LOWEST POSITION. SIDE RAILS UP. WILL CONTINUE TO MONITOR.
--- NOTE | 2019-02-12 07:39 | NUR ---
NURSE NOTES: TOLERATED WEANING, ON CPAP PS 10, PEEP 5. NO SIGNS OF DISTRESS OF THE MOMENT. WILL CONTINUE TO MONITOR.
--- NOTE | 2019-02-12 08:00 | NUR ---
RESPIRATORY NOTES: Placed patient back onto ACVC settings at 0800 due to increased SOB and WOB. RN aware.
--- NOTE | 2019-02-12 08:00 | NUR ---
NURSE NOTES: PATIENT NOTED TO BE RESTLESS AND AZ OF 35-40'S AND NOT TOLERATING CPAP. PLACED PATIENT BACK ON AC MODE WITH SAME VENT SETTINGS. WILL CONTINUE TO MONITOR.
[2019-02-12] MEDS: Heparin 5000 units/ml inj SUBQ SCH ×2 (08:29→20:38)
--- NOTE | 2019-02-12 08:30 | NUR ---
NURSE NOTES: SEEN AND EXAMINED BY DR SOUSA. MADE AWARE THAT PATIENT COULDN'T TOLERATE WEANING BUT ONLY FOR ABOUT 50 MINS. TO CONTINUE FEEDING EVEN ON WEANING. WILL CONTINUE TO MONITOR.
[2019-02-12] MEDS: Meropenem 500 MG in NS 55 ML IVPB SCH (08:47)
--- NOTE | 2019-02-12 08:51 | Critical Care Progress Note ---
Assessment/Plan Assessment/Plan Impression: Respiratory failure, acute Chronic Obstructive Pulmonary Disease with exacerbation Pneumonia Acute kidney injury, h/o Chronic Kidney Disease Elevated troponin Anemia Congestive Heart Failure Previous Atrial Fibrillation Coronary Artery Disease Hypertension Hyperlipidemia Diabetes Bilateral amputations GERD ETOH abuse Plan on vent; try to concepcion IV Antibiotics- ID noted HHN Monitor labs monitor HH HD for now Protonix document management consultant care reviewed nutrition medications/laboratory data/nursing notes/ICU care reviewed in detail note reviewed and edited care discussed with RN and RT ICU time spent 40 minutes Critical Care - Subjective Interval Events: on vent ROS Limited/Unobtainable: Yes Condition: critical EKG Rhythm: Sinus Rhythm I&O: Intake and Output 02/11/19 02/12/19 19:00 07:00 Intake Total 295 ml 240 ml Output Total 1870 ml 490 ml Balance -1575 ml -250 ml Free Water 30 ml IV Total 55 ml Tube Feeding 210 ml 210 ml Other 30 ml Output Urine Total 370 ml 490 ml Hemodialysis UF 1500 ml # Bowel Movements 3 Critical Care - Objective ET-Tube: 7.5 ET Position: 22 Last 24 Hour Vital Signs Date Time Temp Pulse Resp B/P (MAP) Pulse Ox O2 Delivery O2 Flow Rate FiO2 02/12/19 08:47 105 120/54 02/12/19 08:00 105 02/12/19 08:00 45 02/12/19 08:00 98.5 103 36 120/54 (76) 97 02/12/19 08:00 Mechanical Ventilator 02/12/19 07:13 97 25 45 45 02/12/19 07:10 45 02/12/19 07:00 95 23 120/54 (76) 98 02/12/19 06:00 88 24 124/45 (71) 98 02/12/19 05:17 88 26 45 45 02/12/19 05:00 89 23 136/57 (83) 98 02/12/19 04:00 88 02/12/19 04:00 98.0 86 24 133/58 (83) 98 02/12/19 04:00 Mechanical Ventilator 02/12/19 04:00 45 02/12/19 03:13 85 26 45 45 02/12/19 03:00 95 24 119/82 (94) 98 02/12/19 02:00 90 26 118/46 (70) 98 02/12/19 01:20 87 26 45 45 02/12/19 01:00 98.5 81 26 135/60 (85) 98 02/12/19 00:00 82 23 120/55 (76) 98 02/12/19 00:00 Mechanical Ventilator 02/12/19 00:00 85 02/12/19 00:00 45 02/11/19 23:00 84 23 127/55 (79) 98 02/11/19 22:42 84 26 45 45 02/11/19 22:00 83 24 136/61 (86) 98 02/11/19 21:10 82 26 45 45 02/11/19 21:00 83 25 134/62 (86) 98 02/11/19 20:00 Mechanical Ventilator 02/11/19 20:00 98.2 84 26 128/55 (79) 96 02/11/19 19:13 81 26 45 45 02/11/19 19:00 86 25 120/55 (76) 96 02/11/19 18:00 86 25 132/60 (84) 100 02/11/19 17:20 88 26 45 02/11/19 17:00 84 26 101/37 (58) 100 02/11/19 16:00 98.0 85 25 121/54 (76) 98 02/11/19 16:00 45 02/11/19 16:00 83 02/11/19 16:00 Mechanical Ventilator 02/11/19 15:12 83 26 45 02/11/19 15:00 85 20 120/61 (80) 100 02/11/19 14:00 87 19 105/57 (73) 97 02/11/19 13:00 84 26 114/54 (74) 99 02/11/19 12:51 91 32 45 02/11/19 12:00 84 02/11/19 12:00 Mechanical Ventilator 02/11/19 12:00 97.3 89 26 119/55 (76) 100 02/11/19 12:00 45 02/11/19 11:00 86 26 121/51 (74) 100 02/11/19 10:48 Mechanical Ventilator 45 02/11/19 10:48 98 27 45 02/11/19 10:48 Mechanical Ventilator 45 02/11/19 10:00 84 26 125/63 (83) 100 02/11/19 09:29 88 26 45 02/11/19 09:00 86 26 109/58 (75) 99 Labs: Labs Test 02/09/19 15:25 02/09/19 16:10 02/10/19 04:57 02/11/19 04:00 Stool Occult Blood Negative (NEGATIVE) White Blood Count 20.4 K/UL (4.8-10.8) 18.3 K/UL (4.8-10.8) Red Blood Count 3.16 M/UL (4.70-6.10) 3.07 M/UL (4.70-6.10) Hemoglobin 9.4 G/DL (14.2-18.0) 9.1 G/DL (14.2-18.0) Hematocrit 27.2 % (42.0-52.0) 27.1 % (42.0-52.0) Mean Corpuscular Volume 86 FL (80-99) 88 FL (80-99) Mean Corpuscular Hemoglobin 29.8 PG (27.0-31.0) 29.6 PG (27.0-31.0) Mean Corpuscular Hemoglobin Concent 34.7 G/DL (32.0-36.0) 33.5 G/DL (32.0-36.0) Red Cell Distribution Width 13.8 % (11.6-14.8) 14.3 % (11.6-14.8) Platelet Count 110 K/UL (150-450) 109 K/UL (150-450) Mean Platelet Volume 10.1 FL (6.5-10.1) 9.6 FL (6.5-10.1) Neutrophils (%) (Auto) % (45.0-75.0) % (45.0-75.0) Lymphocytes (%) (Auto) % (20.0-45.0) % (20.0-45.0) Monocytes (%) (Auto) % (1.0-10.0) % (1.0-10.0) Eosinophils (%) (Auto) % (0.0-3.0) % (0.0-3.0) Basophils (%) (Auto) % (0.0-2.0) % (0.0-2.0) Differential Total Cells Counted 100 100 Neutrophils % (Manual) 82 % (45-75) 85 % (45-75) Lymphocytes % (Manual) 10 % (20-45) 7 % (20-45) Monocytes % (Manual) 6 % (1-10) 7 % (1-10) Eosinophils % (Manual) 2 % (0-3) 1 % (0-3) Basophils % (Manual) 0 % (0-2) 0 % (0-2) Band Neutrophils 0 % (0-8) 0 % (0-8) Platelet Estimate Decreased Decreased Platelet Morphology Normal Normal Red Blood Cell Morphology Normal Sodium Level 140 MMOL/L (136-145) 146 MMOL/L (136-145) Potassium Level 2.6 MMOL/L (3.5-5.1) 2.4 MMOL/L (3.5-5.1) Chloride Level 103 MMOL/L (98-107) 107 MMOL/L (98-107) Carbon Dioxide Level 25 MMOL/L (21-32) 27 MMOL/L (21-32) Anion Gap 13 mmol/L (5-15) 13 mmol/L (5-15) Blood Urea Nitrogen 42 mg/dL (7-18) 50 mg/dL (7-18) Creatinine 4.6 MG/DL (0.55-1.30) 5.1 MG/DL (0.55-1.30) Estimat Glomerular Filtration Rate 12.8 mL/min (>60) 11.4 mL/min (>60) Glucose Level 331 MG/DL (74-106) 198 MG/DL (74-106) Calcium Level 7.0 MG/DL (8.5-10.1) 7.0 MG/DL (8.5-10.1) Polychromasia 1+ Hypochromasia 1+ Anisocytosis 1+ Troponin I 0.261 ng/mL (0.000-0.056) Pro-B-Type Natriuretic Peptide > 93690 pg/mL (0-125) Arterial Blood pH 7.533 (7.350-7.450) Arterial Blood Partial Pressure CO2 27.2 mmHg (35.0-45.0) Arterial Blood Partial Pressure O2 63.5 mmHg (75.0-100.0) Arterial Blood HCO3 22.4 mmol/L (22.0-26.0) Arterial Blood Oxygen Saturation 93.3 % (95-100) Arterial Blood Base Excess 0.4 (-2-2) Trevor Test Positive Test 02/11/19 07:29 8/5/19 07:39 02/12/19 04:00 Troponin I 0.129 ng/mL (0.000-0.056) White Blood Count 12.7 K/UL (4.8-10.8) Red Blood Count 3.18 M/UL (4.70-6.10) Hemoglobin 9.1 G/DL (14.2-18.0) Hematocrit 28.8 % (42.0-52.0) Mean Corpuscular Volume 91 FL (80-99) Mean Corpuscular Hemoglobin 28.5 PG (27.0-31.0) Mean Corpuscular Hemoglobin Concent 31.5 G/DL (32.0-36.0) Red Cell Distribution Width 15.9 % (11.6-14.8) Platelet Count 97 K/UL (150-450) Mean Platelet Volume 9.0 FL (6.5-10.1) Neutrophils (%) (Auto) % (45.0-75.0) Lymphocytes (%) (Auto) % (20.0-45.0) Monocytes (%) (Auto) % (1.0-10.0) Eosinophils (%) (Auto) % (0.0-3.0) Basophils (%) (Auto) % (0.0-2.0) Differential Total Cells Counted 100 Neutrophils % (Manual) 84 % (45-75) Lymphocytes % (Manual) 8 % (20-45) Monocytes % (Manual) 3 % (1-10) Eosinophils % (Manual) 5 % (0-3) Basophils % (Manual) 0 % (0-2) Band Neutrophils 0 % (0-8) Platelet Estimate Decreased Platelet Morphology Normal Polychromasia 1+ Hypochromasia 1+ Anisocytosis 1+ Sodium Level 142 MMOL/L (136-145) Potassium Level 3.4 MMOL/L (3.5-5.1) Chloride Level 108 MMOL/L (98-107) Carbon Dioxide Level 26 MMOL/L (21-32) Anion Gap 8 mmol/L (5-15) Blood Urea Nitrogen 51 mg/dL (7-18) Creatinine 5.5 MG/DL (0.55-1.30) Estimat Glomerular Filtration Rate 10.4 mL/min (>60) Glucose Level 213 MG/DL (74-106) Calcium Level 6.9 MG/DL (8.5-10.1) Total Bilirubin 0.6 MG/DL (0.2-1.0) Aspartate Amino Transf (AST/SGOT) 21 U/L (15-37) Alanine Aminotransferase (ALT/SGPT) 37 U/L (12-78) Alkaline Phosphatase 84 U/L (46-116) Total Protein 5.7 G/DL (6.4-8.2) Albumin 1.9 G/DL (3.4-5.0) Globulin 3.8 g/dL Albumin/Globulin Ratio 0.5 (1.0-2.7) Objective: WDWN poor LOC on vent clear breath sounds bilaterally without rhonchi or wheeze [id number] without MRG NABS nontender no HSM no CC nonfocal; sedated Accucheck: 161 Theo Noriega MD Feb 12, 2019 08:51
--- NOTE | 2019-02-12 09:01 | General Progress Note ---
Assessment/Plan Problem List: (1) Hepatitis C ICD Codes: B19.20 - Unspecified viral hepatitis C without hepatic coma SNOMED: 76499902 Status: unchanged Assessment/Plan: 1. History of COPD. 2. Coronary artery disease. 3. History of atrial fibrillation. 4. Hypertension. 5. Hyperlipidemia. 6. Diabetes. 7. Peripheral vascular disease with bilateral amputations. 8. Anemia. 9. GERD. 10. Constipation 11. dysphagia NGTF on hold for weaning>> will resume respiratory care fu labs neg stool ob out patient fu for hep c Subjective ROS Limited/Unobtainable: No Allergies: Coded Allergies: No Known Allergies (Unverified , 09/25/17) Objective Last 24 Hour Vital Signs Date Time Temp Pulse Resp B/P (MAP) Pulse Ox O2 Delivery O2 Flow Rate FiO2 02/12/19 08:47 105 120/54 02/12/19 08:00 105 02/12/19 08:00 45 02/12/19 08:00 98.5 103 36 120/54 (76) 97 02/12/19 08:00 Mechanical Ventilator 02/12/19 07:13 97 25 45 45 02/12/19 07:10 45 02/12/19 07:00 95 23 120/54 (76) 98 02/12/19 06:00 88 24 124/45 (71) 98 02/12/19 05:17 88 26 45 45 02/12/19 05:00 89 23 136/57 (83) 98 02/12/19 04:00 88 02/12/19 04:00 98.0 86 24 133/58 (83) 98 02/12/19 04:00 Mechanical Ventilator 02/12/19 04:00 45 02/12/19 03:13 85 26 45 45 02/12/19 03:00 95 24 119/82 (94) 98 02/12/19 02:00 90 26 118/46 (70) 98 02/12/19 01:20 87 26 45 45 02/12/19 01:00 98.5 81 26 135/60 (85) 98 02/12/19 00:00 82 23 120/55 (76) 98 02/12/19 00:00 Mechanical Ventilator 02/12/19 00:00 85 02/12/19 00:00 45 02/11/19 23:00 84 23 127/55 (79) 98 02/11/19 22:42 84 26 45 45 02/11/19 22:00 83 24 136/61 (86) 98 02/11/19 21:10 82 26 45 45 02/11/19 21:00 83 25 134/62 (86) 98 02/11/19 20:00 Mechanical Ventilator 02/11/19 20:00 98.2 84 26 128/55 (79) 96 02/11/19 19:13 81 26 45 45 02/11/19 19:00 86 25 120/55 (76) 96 02/11/19 18:00 86 25 132/60 (84) 100 02/11/19 17:20 88 26 45 02/11/19 17:00 84 26 101/37 (58) 100 02/11/19 16:00 98.0 85 25 121/54 (76) 98 02/11/19 16:00 45 02/11/19 16:00 83 02/11/19 16:00 Mechanical Ventilator 02/11/19 15:12 83 26 45 02/11/19 15:00 85 20 120/61 (80) 100 02/11/19 14:00 87 19 105/57 (73) 97 02/11/19 13:00 84 26 114/54 (74) 99 02/11/19 12:51 91 32 45 02/11/19 12:00 84 02/11/19 12:00 Mechanical Ventilator 02/11/19 12:00 97.3 89 26 119/55 (76) 100 02/11/19 12:00 45 02/11/19 11:00 86 26 121/51 (74) 100 02/11/19 10:48 Mechanical Ventilator 45 02/11/19 10:48 98 27 45 02/11/19 10:48 Mechanical Ventilator 45 02/11/19 10:00 84 26 125/63 (83) 100 02/11/19 09:29 88 26 45 02/11/19 09:00 86 26 109/58 (75) 99 Intake and Output 02/11/19 02/12/19 19:00 07:00 Intake Total 295 ml 240 ml Output Total 1870 ml 490 ml Balance -1575 ml -250 ml Free Water 30 ml IV Total 55 ml Tube Feeding 210 ml 210 ml Other 30 ml Output Urine Total 370 ml 490 ml Hemodialysis UF 1500 ml # Bowel Movements 3 Laboratory Tests 02/12/19 04:00: Stool Occult Blood [Pending] Height (Feet): 5 Height (Inches): 3.00 Weight (Pounds): 125 General Appearance: lethargic EENT: normal ENT inspection Neck: supple Cardiovascular: normal peripheral pulses Respiratory/Chest: decreased breath sounds Abdomen: normal bowel sounds, non tender, soft Extremities: non-tender Kelvin Andrew MD Feb 12, 2019 09:01
--- NOTE | 2019-02-12 09:29 | Nephrology Progress Note ---
Assessment/Plan Plan ESRD - STARTED HD via femoral Junior. Needs PermaCath + AVF. To get a PermaCath soon. Patient has no DPOA or family and Perma Cath is needed to support life! Sepsis - per ID. Resp Failure - hope to wean soon. Accepted @ [facility] for outpatient HD. HD q MWF Subjective Subjective On vent. Objective Objective Last 24 Hour Vital Signs Date Time Temp Pulse Resp B/P (MAP) Pulse Ox O2 Delivery O2 Flow Rate FiO2 02/12/19 09:01 98 02/12/19 09:01 87 26 45 02/12/19 08:47 105 120/54 02/12/19 08:00 105 02/12/19 08:00 45 02/12/19 08:00 98.5 103 36 120/54 (76) 97 02/12/19 08:00 Mechanical Ventilator 02/12/19 07:13 97 25 45 45 02/12/19 07:10 45 02/12/19 07:00 95 23 120/54 (76) 98 02/12/19 06:00 88 24 124/45 (71) 98 02/12/19 05:17 88 26 45 45 02/12/19 05:00 89 23 136/57 (83) 98 02/12/19 04:00 88 02/12/19 04:00 98.0 86 24 133/58 (83) 98 02/12/19 04:00 Mechanical Ventilator 02/12/19 04:00 45 02/12/19 03:13 85 26 45 45 02/12/19 03:00 95 24 119/82 (94) 98 02/12/19 02:00 90 26 118/46 (70) 98 02/12/19 01:20 87 26 45 45 02/12/19 01:00 98.5 81 26 135/60 (85) 98 02/12/19 00:00 82 23 120/55 (76) 98 02/12/19 00:00 Mechanical Ventilator 02/12/19 00:00 85 02/12/19 00:00 45 02/11/19 23:00 84 23 127/55 (79) 98 02/11/19 22:42 84 26 45 45 02/11/19 22:00 83 24 136/61 (86) 98 02/11/19 21:10 82 26 45 45 02/11/19 21:00 83 25 134/62 (86) 98 02/11/19 20:00 Mechanical Ventilator 02/11/19 20:00 98.2 84 26 128/55 (79) 96 02/11/19 19:13 81 26 45 45 02/11/19 19:00 86 25 120/55 (76) 96 02/11/19 18:00 86 25 132/60 (84) 100 02/11/19 17:20 88 26 45 02/11/19 17:00 84 26 101/37 (58) 100 02/11/19 16:00 98.0 85 25 121/54 (76) 98 02/11/19 16:00 45 02/11/19 16:00 83 02/11/19 16:00 Mechanical Ventilator 02/11/19 15:12 83 26 45 02/11/19 15:00 85 20 120/61 (80) 100 02/11/19 14:00 87 19 105/57 (73) 97 02/11/19 13:00 84 26 114/54 (74) 99 02/11/19 12:51 91 32 45 02/11/19 12:00 84 02/11/19 12:00 Mechanical Ventilator 02/11/19 12:00 97.3 89 26 119/55 (76) 100 02/11/19 12:00 45 02/11/19 11:00 86 26 121/51 (74) 100 02/11/19 10:48 Mechanical Ventilator 45 02/11/19 10:48 98 27 45 02/11/19 10:48 Mechanical Ventilator 45 02/11/19 10:00 84 26 125/63 (83) 100 02/11/19 09:29 88 26 45 Intake and Output 02/11/19 02/12/19 19:00 07:00 Intake Total 295 ml 240 ml Output Total 1870 ml 490 ml Balance -1575 ml -250 ml Free Water 30 ml IV Total 55 ml Tube Feeding 210 ml 210 ml Other 30 ml Output Urine Total 370 ml 490 ml Hemodialysis UF 1500 ml # Bowel Movements 3 Laboratory Tests 02/12/19 04:00: Stool Occult Blood [Pending] Height (Feet): 5 Height (Inches): 3.00 Weight (Pounds): 125 Objective On vent. Arousable. CV RR Lungs CTA Abd SNT. BS + E No CCE. B BKS stumps clean. Shechter,Pagiel MD Feb 12, 2019 09:29
--- NOTE | 2019-02-12 09:30 | NUR ---
NURSE NOTES: SEEN AND EXAMINED BY DR PATHAK. NEW ORDERS MADE. WILL CONTINUE TO MONITOR.
--- NOTE | 2019-02-12 09:47 | NUR ---
NURSE NOTES: SPOKE WITH DR PATHAK THAT IT'S OK TO DO PERMACATH TOMORROW. RADIOLOGY MADE AWARE. WILL CONTINUE TO MONITOR. NOTED HE PULLED THE OGT. HELD FEEDING FOR NOW. FOR REINSERTION OF OGT/NGT. WILL CONTINUE TO MONITOR.
--- NOTE | 2019-02-12 10:12 | NUR ---
NURSE NOTES: SUCCESSFULLY INSERTED OGT FOR KUB CONFRIMATION OF PLACEMENT. WILL CONTINUE TO MONITOR.
--- NOTE | 2019-02-12 10:13 | Surgery Progress Note ---
Surgery Progress Note Subjective Procedure Performed right femoral temporary hemodialysis catheter insertion Additional Comments no acute events labs pending exam unchanged awake alert on vent support tachy at times. permacath scheduled for tomorrow Objective Last 24 Hour Vital Signs Date Time Temp Pulse Resp B/P (MAP) Pulse Ox O2 Delivery O2 Flow Rate FiO2 02/12/19 10:00 90 25 114/82 (93) 99 02/12/19 09:01 98 02/12/19 09:01 87 26 45 02/12/19 09:00 87 26 130/56 (80) 99 02/12/19 08:47 105 120/54 02/12/19 08:00 105 02/12/19 08:00 45 02/12/19 08:00 98.5 103 36 120/54 (76) 97 02/12/19 08:00 Mechanical Ventilator 02/12/19 07:13 97 25 45 45 02/12/19 07:10 45 02/12/19 07:00 95 23 120/54 (76) 98 02/12/19 06:00 88 24 124/45 (71) 98 02/12/19 05:17 88 26 45 45 02/12/19 05:00 89 23 136/57 (83) 98 02/12/19 04:00 88 02/12/19 04:00 98.0 86 24 133/58 (83) 98 02/12/19 04:00 Mechanical Ventilator 02/12/19 04:00 45 02/12/19 03:13 85 26 45 45 02/12/19 03:00 95 24 119/82 (94) 98 02/12/19 02:00 90 26 118/46 (70) 98 02/12/19 01:20 87 26 45 45 02/12/19 01:00 98.5 81 26 135/60 (85) 98 02/12/19 00:00 82 23 120/55 (76) 98 02/12/19 00:00 Mechanical Ventilator 02/12/19 00:00 85 02/12/19 00:00 45 02/11/19 23:00 84 23 127/55 (79) 98 02/11/19 22:42 84 26 45 45 02/11/19 22:00 83 24 136/61 (86) 98 02/11/19 21:10 82 26 45 45 02/11/19 21:00 83 25 134/62 (86) 98 02/11/19 20:00 Mechanical Ventilator 02/11/19 20:00 98.2 84 26 128/55 (79) 96 02/11/19 19:13 81 26 45 45 02/11/19 19:00 86 25 120/55 (76) 96 02/11/19 18:00 86 25 132/60 (84) 100 02/11/19 17:20 88 26 45 02/11/19 17:00 84 26 101/37 (58) 100 02/11/19 16:00 98.0 85 25 121/54 (76) 98 02/11/19 16:00 45 02/11/19 16:00 83 02/11/19 16:00 Mechanical Ventilator 02/11/19 15:12 83 26 45 02/11/19 15:00 85 20 120/61 (80) 100 02/11/19 14:00 87 19 105/57 (73) 97 02/11/19 13:00 84 26 114/54 (74) 99 02/11/19 12:51 91 32 45 02/11/19 12:00 84 02/11/19 12:00 Mechanical Ventilator 02/11/19 12:00 97.3 89 26 119/55 (76) 100 02/11/19 12:00 45 02/11/19 11:00 86 26 121/51 (74) 100 02/11/19 10:48 Mechanical Ventilator 45 02/11/19 10:48 98 27 45 02/11/19 10:48 Mechanical Ventilator 45 I&O Intake and Output 02/11/19 02/12/19 19:00 07:00 Intake Total 295 ml 240 ml Output Total 1870 ml 490 ml Balance -1575 ml -250 ml Free Water 30 ml IV Total 55 ml Tube Feeding 210 ml 210 ml Other 30 ml Output Urine Total 370 ml 490 ml Hemodialysis UF 1500 ml # Bowel Movements 3 Dressing: dry Wound: clean Cardiovascular: RSR Respiratory: clear, decreased breath sounds Abdomen: soft, present bowel sounds, non-distended Extremities: no tenderness, no cyanosis, other Laboratory Tests Test 02/12/19 04:00 Stool Occult Blood Pending Plan Problems: (1) ARDS (adult respiratory distress syndrome) (2) Anemia (3) Elevated troponin (4) MARY (acute kidney injury) (5) COPD with exacerbation (6) Abnormal LFTs Assessment & Plan: Abnormalities likely from shock liver. Gallbladder wall thickening nonspecific. Sonographic Rojas's is equivocal due to patient's condition. Trace ascites Bilateral pleural effusions. Suspected medical renal disease. Suspected nonobstructive stone in the right kidney. Trend labs Leukocytosis trending down Anemia LFTs normal now Improving (7) COPD (chronic obstructive pulmonary disease) (8) Respiratory distress (9) Pneumonia (10) HTN (hypertension) (11) Epileptic seizure, generalized (12) Shock liver Assessment & Plan: Shock liver likely from hypotension and cardiovascular arrest. Resuscitation with IV fluids ICU care and management Trend labs overall improving We will follow with recommendations (13) Suprapubic catheter Hari Batres Feb 12, 2019 10:13
--- NOTE | 2019-02-12 10:46 | NUR ---
RADIOLOGY DEPT., ABDOMEN X-RAY DONE FOR ORAL GASTRIC TUBE PLMT.-P.DYE
--- NOTE | 2019-02-12 10:48 | Diagnostic Imaging Report ---
Indication: NG tube placement. Comparison: None Single view of the abdomen obtained Findings: NG tube is in good position with the proximal and distal ports well within the stomach lumen. Bowel gas pattern appears nonspecific. There is a retrocardiac density demonstrated. IMPRESSION: NG tube in good position
[2019-02-12 11:08] LABS: HEMATOCRIT 30.1 % (42.0-52.0); HEMOGLOBIN 9.6 G/DL (14.2-18.0); MEAN CORPUSCULAR VOLUME 92 FL (80-99); PLATELET COUNT 97 K/UL (150-450); RED BLOOD COUNT 3.28 M/UL (4.70-6.10); RED CELL DISTRIBUTION WIDTH 20.5 % (11.6-14.8)
--- NOTE | 2019-02-12 11:19 | NUR ---
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 98.5 HR 105 RR 36 B/P 120/84 WBC 11.0 CPAP TV 550 FIO2 45% PEEP 5 PS 10 IS: MEROPENEM IV PREVACID ICU STATUS
[2019-02-12 11:27] LABS: ALANINE AMINOTRANSFERASE 28 U/L (12-78); ALBUMIN 2.1 G/DL (3.4-5.0); ALBUMIN/GLOBULIN RATIO 0.5 (1.0-2.7); ALKALINE PHOSPHATASE 95 U/L (46-116); ANION GAP 12 mmol/L (5-15); ASPARTATE AMINO TRANSFERASE 19 U/L (15-37); BILIRUBIN,TOTAL 0.7 MG/DL (0.2-1.0); BLOOD UREA NITROGEN 46 mg/dL (7-18); CALCIUM 7.2 MG/DL (8.5-10.1); CARBON DIOXIDE 24 MMOL/L (21-32); CHLORIDE 111 MMOL/L (98-107); CREATININE 5.1 MG/DL (0.55-1.30); POTASSIUM 3.6 MMOL/L (3.5-5.1); SODIUM 147 MMOL/L (136-145)
--- NOTE | 2019-02-12 11:51 | NUR ---
HAND-OFF: Report given to YU Rust. Patient kept clean and dry. Noted BM. Patient tolerated vent settings and gtf. Still on restraints due to pulling objects. Will continue to monitor.
--- NOTE | 2019-02-12 11:52 | NUR ---
NURSE NOTES: Report received from YU Medreos
--- NOTE | 2019-02-12 12:03 | NUR ---
NURSE NOTES: Pt awake, orally intubated with ETT 7.5 Lip line, AC 26 VT 550 FiO2 45% Peep 5. GT feeding placement checked and intact, running Nepro at 35cc/hr.HOB elevated to prevent aspiration.Afebrile at this time.Abdomen soft and non distended, suprapubic catheter dressing intact clean and dry, draining yellow urine with no apparent sediment.BKA elevated with pillow.Help in self repositioning.Bilateral soft wrist restraints with no skin impairment.Call light within easy reach.Kept on close monitoring
--- NOTE | 2019-02-12 14:05 | NUR ---
NURSE NOTES: Patient turned and repositioned, kept clean and dry.Suctioned as tolerated.HOB elevated at 35 degree to prevent aspiration.Will continue to monitor
--- NOTE | 2019-02-12 15:36 | NUR ---
*-* INSURANCE *-* UPDATED CLINICALS AND REVIEWS HAVE BEEN FAXED TO: /[facility] @ [phone] - [facility]# [id number] NCM: NICHOLAS Martin P- [phone] F- [phone]....REVIEW/CLINICAL
--- NOTE | 2019-02-12 16:08 | NUR ---
NURSE NOTES: Adls done, pt turned and repositioned,HOB elevated to prevent aspiration.Kept clean dry and comfortable.Call light within easy reach.Will continue to monitor
--- NOTE | 2019-02-12 16:43 | Hematology/Onc Progress Note ---
Assessment/Plan Assessment/Plan Assessment and Recs: # Anemia of chronic disease due to underlying chronic medical issues, multifactorial --> Anemia workup has been ordered, rule out gi bleed --> No evidence of hemolysis is noted, peripheral smear has been reviewed. --> Hgb goal >7. Transfuse prn. --> Epogen and iron both started given ckd, ferritin only 274 (needs to be >500 for esrd pts) --> Medications have been reviewed --> low threshold for gi evaluation in case has occult + --> hgb trend 9.9-->9.4-->9.1-->9 # Leukocytosis/elevated white blood cell count, unspecified likely related to underlying stress reaction, pna, ARDS --> have reviewed peripheral smear and bandemia/neutrophilia noted --> continue antibiotics if they have been started by ID team --> 23-->17-->20k-->18k-->12 # Thrombocytopenia - potential causes multifactorial, evaluate liver and viral etiologies to begin, also could be related to underlying medications patient has received. may be due to Hep C++ (need to confirm) --> Hep panel and HIV is negative --> US abd shows e/o trace ascites --> Peripheral smear ordered to evaluate for blasts /schistocytes is neg --> abx and other meds have been reviewed --> ok for ppx if plt >50k w/ either heparin or lovenox # Respiratory distress with ards --> has been intubated, on a vent --> as per pulm recs -> vent adjustment per pulm # Chronic Obstructive Pulmonary Disease with exacerbation --> breathing treatments on prn basis # Pneumonia --> on abx per id # ESRD - STARTED HD via femoral Junior. ++ PermaCath + AVF. --> hd per renal --> hd on 02/11 # Elevated troponin can be renal related --> per cards, r/o acs # Bilateral amputations # GERD # ETOH abuse The timing of this note does not necessarily reflect the time of the patient was seen. Greatly appreciate consultation! Subjective Constitutional: Denies: no symptoms, chills, fever, malaise, weakness, other HEENT: Denies: no symptoms, eye pain, blurred vision, tearing, double vision, ear pain, ear discharge, nose pain, nose congestion, throat pain, throat swelling, mouth pain, mouth swelling, other Cardiovascular: Denies: no symptoms, chest pain, edema, irregular heart rate, lightheadedness, palpitations, syncope, other Respiratory: Denies: no symptoms, cough, shortness of breath, SOB with excertion, SOB at rest, sputum, wheezing, other Gastrointestinal/Abdominal: Denies: no symptoms, abdomen distended, abdominal pain, black stools, tarry stools, blood in stool, constipated, diarrhea, difficulty swallowing, nausea, poor appetite, poor fluid intake, rectal bleeding , vomiting, other Neurologic/Psychiatric: Denies: no symptoms, anxiety, depressed, emotional problems, headache, numbness, paresthesia, pre-existing deficit, seizure, tingling, tremors, weakness, other Endocrine: Denies: no symptoms, excessive sweating, flushing, intolerance to cold, intolerance to heat, increased hunger, increased thirst, increased urine, unexplained weight gain, unexplained weight loss, other Allergies: Coded Allergies: No Known Allergies (Unverified , 09/25/17) Subjective 02/08: is on jose and vanc, broad spectrum abx, no f/c, vent adjusted per pulm 02/10: given k, remains on vent, in icu, vent weaning pending 02/11: no events noted, no f/c, remains in icu, is on vent 02/12: no events, labs reviewed, permacath for tomorrow, intub Objective Objective Current Medications Medications (Trade) Dose Ordered Sig/Joe Route PRN Reason Start Time Stop Time Status Last Admin Dose Admin Acetaminophen (Tylenol) 650 mg Q4H PRN GT Mild Pain/Temp > 100.5 02/11/19 15:34 03/13/19 15:33 02/11/19 15:38 Al Hydroxide/Mg Hydroxide (Mylanta) 30 ml PRN ORAL 02/06/19 05:45 03/08/19 05:44 Carvedilol (Coreg) 3.125 mg EVERY 12 HOURS NG 02/12/19 09:00 03/14/19 08:59 02/12/19 08:47 Chlorhexidine Gluconate (Falguni-Hex 2%) 1 applic DAILY@1999 TOPIC 02/06/19 20:00 03/08/19 19:59 02/11/19 20:07 Dextrose (Dextrose 50%) 25 ml Q30M PRN IV Hypoglycemia 02/06/19 11:30 03/08/19 11:29 Dextrose (Dextrose 50%) 50 ml Q30M PRN IV Hypoglycemia 02/06/19 11:30 03/08/19 11:29 Epoetin Mayo (Epoetin Mayo(ESRD on dialysis)) 10,000 unit MON-MON-MON SUBQ 02/06/19 21:00 03/08/19 20:59 02/11/19 21:16 Heparin Sodium (Porcine) (Heparin 5000 units/ml) 5,000 units EVERY 12 HOURS SUBQ 02/06/19 09:00 03/08/19 08:59 02/10/19 21:02 Heparin Sodium (Porcine) (Heparin Sod 1000 units/ml 10ml) 500 unit ONCE ONCE IV 02/13/19 09:30 02/13/19 09:31 Heparin Sodium (Porcine) (Heparin Sod 1000 units/ml 10ml) 2,000 unit ONCE ONCE IV 02/13/19 09:30 02/13/19 09:31 Insulin Aspart (NovoLOG) Q6HR SUBQ 02/06/19 12:00 03/08/19 11:59 02/12/19 11:56 Lansoprazole (Prevacid) 30 mg DAILY NG 02/06/19 09:00 03/08/19 08:59 02/12/19 08:46 Lorazepam (Ativan 2mg/ml 1ml) 0.5 mg Q2H PRN IV For Anxiety 02/09/19 22:15 02/16/19 22:14 02/12/19 05:50 Meropenem 500 mg/ Sodium Chloride 55 ml @ 110 mls/hr DAILY IVPB 02/06/19 13:00 02/15/19 12:59 02/12/19 08:47 Morphine Sulfate (Morphine Sulfate) 2 mg Q2H PRN IVP For Pain 02/09/19 23:45 02/16/19 23:44 02/12/19 06:54 Sodium Chloride 1,000 ml @ 500 mls/hr Q2H PRN IVLG sbp<90 during hd 02/11/19 12:32 03/13/19 12:31 Sodium Chloride 1,000 ml @ 500 mls/hr Q2H PRN IVLG sbp<90 during hd 02/13/19 09:30 03/15/19 09:29 Last 24 Hour Vital Signs Date Time Temp Pulse Resp B/P (MAP) Pulse Ox O2 Delivery O2 Flow Rate FiO2 02/12/19 15:17 88 27 45 02/12/19 13:09 87 28 45 02/12/19 13:00 88 24 117/64 (81) 100 02/12/19 12:00 45 02/12/19 12:00 83 02/12/19 12:00 97.4 84 26 135/62 (86) 100 02/12/19 12:00 Mechanical Ventilator 02/12/19 11:29 88 26 45 02/12/19 11:00 86 26 135/62 (86) 100 02/12/19 10:00 90 25 114/82 (93) 99 02/12/19 09:01 98 02/12/19 09:01 87 26 45 02/12/19 09:00 87 26 130/56 (80) 99 02/12/19 08:47 105 120/54 02/12/19 08:00 105 02/12/19 08:00 45 02/12/19 08:00 98.5 103 36 120/54 (76) 97 02/12/19 08:00 Mechanical Ventilator 02/12/19 07:13 97 25 45 45 02/12/19 07:10 45 02/12/19 07:00 95 23 120/54 (76) 98 02/12/19 06:00 88 24 124/45 (71) 98 02/12/19 05:17 88 26 45 45 02/12/19 05:00 89 23 136/57 (83) 98 02/12/19 04:00 88 02/12/19 04:00 98.0 86 24 133/58 (83) 98 02/12/19 04:00 Mechanical Ventilator 02/12/19 04:00 45 02/12/19 03:13 85 26 45 45 02/12/19 03:00 95 24 119/82 (94) 98 02/12/19 02:00 90 26 118/46 (70) 98 02/12/19 01:20 87 26 45 45 02/12/19 01:00 98.5 81 26 135/60 (85) 98 02/12/19 00:00 82 23 120/55 (76) 98 02/12/19 00:00 Mechanical Ventilator 02/12/19 00:00 85 02/12/19 00:00 45 02/11/19 23:00 84 23 127/55 (79) 98 02/11/19 22:42 84 26 45 45 02/11/19 22:00 83 24 136/61 (86) 98 02/11/19 21:10 82 26 45 45 02/11/19 21:00 83 25 134/62 (86) 98 02/11/19 20:00 Mechanical Ventilator 02/11/19 20:00 98.2 84 26 128/55 (79) 96 02/11/19 19:13 81 26 45 45 02/11/19 19:00 86 25 120/55 (76) 96 02/11/19 18:00 86 25 132/60 (84) 100 02/11/19 17:20 88 26 45 02/11/19 17:00 84 26 101/37 (58) 100 02/11/19 16:00 98.0 85 25 121/54 (76) 98 02/11/19 16:00 45 02/11/19 16:00 83 02/11/19 16:00 Mechanical Ventilator 02/11/19 15:12 83 26 45 02/11/19 15:00 85 20 120/61 (80) 100 02/11/19 14:00 87 19 105/57 (73) 97 02/11/19 13:00 84 26 114/54 (74) 99 02/11/19 12:51 91 32 45 02/11/19 12:00 84 02/11/19 12:00 Mechanical Ventilator 02/11/19 12:00 97.3 89 26 119/55 (76) 100 02/11/19 12:00 45 02/11/19 11:00 86 26 121/51 (74) 100 02/11/19 10:48 Mechanical Ventilator 45 02/11/19 10:48 98 27 45 02/11/19 10:48 Mechanical Ventilator 45 02/11/19 10:00 84 26 125/63 (83) 100 02/11/19 09:29 88 26 45 02/11/19 09:00 86 26 109/58 (75) 99 02/11/19 08:00 89 02/11/19 08:00 98.6 90 26 125/60 (81) 98 02/11/19 08:00 Mechanical Ventilator 02/11/19 08:00 45 02/11/19 07:02 84 26 99 Mechanical Ventilator 45 02/11/19 07:00 85 26 45 02/11/19 07:00 84 26 126/59 (81) 100 02/11/19 06:55 85 26 98 Mechanical Ventilator 45 02/11/19 06:00 84 26 115/54 (74) 100 02/11/19 05:13 90 26 45 02/11/19 05:00 88 26 120/54 (76) 97 02/11/19 04:00 Mechanical Ventilator 02/11/19 04:00 45 02/11/19 04:00 87 02/11/19 04:00 98.0 87 26 139/67 (91) 97 02/11/19 03:28 91 26 97 Mechanical Ventilator 45 02/11/19 03:18 87 26 97 Mechanical Ventilator 45 02/11/19 03:18 87 26 45 02/11/19 03:00 83 26 128/52 (77) 96 02/11/19 02:00 85 26 129/56 (80) 96 02/11/19 01:00 86 25 125/52 (76) 96 02/11/19 00:55 85 26 45 02/11/19 00:00 98.4 85 26 136/66 (89) 97 02/11/19 00:00 45 02/11/19 00:00 89 02/11/19 00:00 Mechanical Ventilator 02/10/19 23:10 84 26 98 Mechanical Ventilator 45 02/10/19 23:03 84 26 97 Mechanical Ventilator 45 02/10/19 23:00 84 26 45 02/10/19 23:00 84 26 97 Mechanical Ventilator 45 02/10/19 23:00 69 26 125/84 (98) 98 02/10/19 22:00 83 26 134/63 (86) 98 02/10/19 21:21 84 26 45 02/10/19 21:00 85 26 117/54 (75) 96 02/10/19 20:00 98.6 85 26 116/52 (73) 94 02/10/19 20:00 45 02/10/19 20:00 85 02/10/19 20:00 Mechanical Ventilator 02/10/19 19:31 86 26 95 Mechanical Ventilator 45 02/10/19 19:21 87 26 95 Mechanical Ventilator 45 02/10/19 19:21 87 26 45 02/10/19 18:00 89 26 130/62 (84) 95 02/10/19 17:09 88 23 45 02/10/19 17:00 86 26 130/62 (84) 95 Intake and Output 02/11/19 02/12/19 18:59 06:59 Intake Total 330 ml 240 ml Output Total 1910 ml 490 ml Balance -1580 ml -250 ml Free Water 30 ml IV Total 55 ml Tube Feeding 245 ml 210 ml Other 30 ml Output Urine Total 410 ml 490 ml Hemodialysis UF 1500 ml # Bowel Movements 3 Labs Test 02/10/19 04:57 02/11/19 04:00 02/11/19 07:29 02/11/19 07:39 White Blood Count 18.3 K/UL (4.8-10.8) 12.7 K/UL (4.8-10.8) Red Blood Count 3.07 M/UL (4.70-6.10) 3.18 M/UL (4.70-6.10) Hemoglobin 9.1 G/DL (14.2-18.0) 9.1 G/DL (14.2-18.0) Hematocrit 27.1 % (42.0-52.0) 28.8 % (42.0-52.0) Mean Corpuscular Volume 88 FL (80-99) 91 FL (80-99) Mean Corpuscular Hemoglobin 29.6 PG (27.0-31.0) 28.5 PG (27.0-31.0) Mean Corpuscular Hemoglobin Concent 33.5 G/DL (32.0-36.0) 31.5 G/DL (32.0-36.0) Red Cell Distribution Width 14.3 % (11.6-14.8) 15.9 % (11.6-14.8) Platelet Count 109 K/UL (150-450) 97 K/UL (150-450) Mean Platelet Volume 9.6 FL (6.5-10.1) 9.0 FL (6.5-10.1) Neutrophils (%) (Auto) % (45.0-75.0) % (45.0-75.0) Lymphocytes (%) (Auto) % (20.0-45.0) % (20.0-45.0) Monocytes (%) (Auto) % (1.0-10.0) % (1.0-10.0) Eosinophils (%) (Auto) % (0.0-3.0) % (0.0-3.0) Basophils (%) (Auto) % (0.0-2.0) % (0.0-2.0) Differential Total Cells Counted 100 100 Neutrophils % (Manual) 85 % (45-75) 84 % (45-75) Lymphocytes % (Manual) 7 % (20-45) 8 % (20-45) Monocytes % (Manual) 7 % (1-10) 3 % (1-10) Eosinophils % (Manual) 1 % (0-3) 5 % (0-3) Basophils % (Manual) 0 % (0-2) 0 % (0-2) Band Neutrophils 0 % (0-8) 0 % (0-8) Platelet Estimate Decreased Decreased Platelet Morphology Normal Normal Polychromasia 1+ 1+ Hypochromasia 1+ 1+ Anisocytosis 1+ 1+ Sodium Level 146 MMOL/L (136-145) 142 MMOL/L (136-145) Potassium Level 2.4 MMOL/L (3.5-5.1) 3.4 MMOL/L (3.5-5.1) Chloride Level 107 MMOL/L (98-107) 108 MMOL/L (98-107) Carbon Dioxide Level 27 MMOL/L (21-32) 26 MMOL/L (21-32) Anion Gap 13 mmol/L (5-15) 8 mmol/L (5-15) Blood Urea Nitrogen 50 mg/dL (7-18) 51 mg/dL (7-18) Creatinine 5.1 MG/DL (0.55-1.30) 5.5 MG/DL (0.55-1.30) Estimat Glomerular Filtration Rate 11.4 mL/min (>60) 10.4 mL/min (>60) Glucose Level 198 MG/DL (74-106) 213 MG/DL (74-106) Calcium Level 7.0 MG/DL (8.5-10.1) 6.9 MG/DL (8.5-10.1) Troponin I 0.261 ng/mL (0.000-0.056) 0.129 ng/mL (0.000-0.056) Pro-B-Type Natriuretic Peptide > 29109 pg/mL (0-125) Arterial Blood pH 7.533 (7.350-7.450) Arterial Blood Partial Pressure CO2 27.2 mmHg (35.0-45.0) Arterial Blood Partial Pressure O2 63.5 mmHg (75.0-100.0) Arterial Blood HCO3 22.4 mmol/L (22.0-26.0) Arterial Blood Oxygen Saturation 93.3 % (95-100) Arterial Blood Base Excess 0.4 (-2-2) Trevor Test Positive Total Bilirubin 0.6 MG/DL (0.2-1.0) Aspartate Amino Transf (AST/SGOT) 21 U/L (15-37) Alanine Aminotransferase (ALT/SGPT) 37 U/L (12-78) Alkaline Phosphatase 84 U/L (46-116) Total Protein 5.7 G/DL (6.4-8.2) Albumin 1.9 G/DL (3.4-5.0) Globulin 3.8 g/dL Albumin/Globulin Ratio 0.5 (1.0-2.7) Test 02/12/19 04:00 02/12/19 11:00 Stool Occult Blood Negative (NEGATIVE) White Blood Count 11.0 K/UL (4.8-10.8) Red Blood Count 3.28 M/UL (4.70-6.10) Hemoglobin 9.6 G/DL (14.2-18.0) Hematocrit 30.1 % (42.0-52.0) Mean Corpuscular Volume 92 FL (80-99) Mean Corpuscular Hemoglobin 29.2 PG (27.0-31.0) Mean Corpuscular Hemoglobin Concent 31.8 G/DL (32.0-36.0) Red Cell Distribution Width 20.5 % (11.6-14.8) Platelet Count 97 K/UL (150-450) Mean Platelet Volume 8.3 FL (6.5-10.1) Neutrophils (%) (Auto) % (45.0-75.0) Lymphocytes (%) (Auto) % (20.0-45.0) Monocytes (%) (Auto) % (1.0-10.0) Eosinophils (%) (Auto) % (0.0-3.0) Basophils (%) (Auto) % (0.0-2.0) Differential Total Cells Counted 100 Neutrophils % (Manual) 71 % (45-75) Lymphocytes % (Manual) 19 % (20-45) Monocytes % (Manual) 3 % (1-10) Eosinophils % (Manual) 4 % (0-3) Basophils % (Manual) 3 % (0-2) Band Neutrophils 0 % (0-8) Platelet Estimate Decreased Platelet Morphology Normal Hypochromasia 2+ Anisocytosis 2+ Sodium Level 147 MMOL/L (136-145) Potassium Level 3.6 MMOL/L (3.5-5.1) Chloride Level 111 MMOL/L (98-107) Carbon Dioxide Level 24 MMOL/L (21-32) Anion Gap 12 mmol/L (5-15) Blood Urea Nitrogen 46 mg/dL (7-18) Creatinine 5.1 MG/DL (0.55-1.30) Estimat Glomerular Filtration Rate 11.4 mL/min (>60) Glucose Level 152 MG/DL (74-106) Calcium Level 7.2 MG/DL (8.5-10.1) Total Bilirubin 0.7 MG/DL (0.2-1.0) Aspartate Amino Transf (AST/SGOT) 19 U/L (15-37) Alanine Aminotransferase (ALT/SGPT) 28 U/L (12-78) Alkaline Phosphatase 95 U/L (46-116) Total Protein 6.2 G/DL (6.4-8.2) Albumin 2.1 G/DL (3.4-5.0) Globulin 4.1 g/dL Albumin/Globulin Ratio 0.5 (1.0-2.7) Height (Feet): 5 Height (Inches): 3.00 Weight (Pounds): 125 Objective PE Gen: fatigued, on mechanical ventilator Eyes: bilateral eye PERRL, b/l eye EOMI Respiratory: Bilateral wheezing, rhonchi ++ vent Cardiovascular: normal heart sound, normal peripheral pulses, rrr GI: non tender, soft, no guarding, no rebound ++ peg Msk normal inspection Neuro: sedated, no focal signs Skin: no rash, warm/dry Nicho Rebolledo MD Feb 12, 2019 16:43
--- NOTE | 2019-02-12 18:11 | NUR ---
NURSE NOTES: ADLs done,turned and repositioned.Mouth care done, HOB elevated at 35 degree to prevent aspiration.Call light within easy reach,will continue to monitor
--- NOTE | 2019-02-12 18:59 | NUR ---
RESPIRATORY NOTE: Received pt on AC 26, 550VT, 45%, PEEP +5. Pt intubated w/ ETT 7.5 @ 23cm lipline, secured by anchorfast. Pt alert/awake, follows commands. B/S genevieve. clear-diminished, sxn minimal amounts of thick/thin, lundy-brown secretions w/ occasional blood clots. Both hands on soft restraints to prevent pt from self-extubations. Vent plugged into red outlet, ambubag at bedside. Pt in no apparent distress at this time. Will continue to monitor pt.
--- NOTE | 2019-02-12 19:30 | NUR ---
NURSE NOTES:Received pt appeared fatigue , orally intubated on ac mode, 02 sat > 95%. Bilateral soft wrist restraint on for safety to avoid self extubation,SR on the monitor, bp stable afebrile, Pt with OGT tolerating fdgf at this time. Pt with OGT cath, with fdg, tyole rated at this time. Will continue to monitor.
--- NOTE | 2019-02-12 19:35 | NUR ---
HAND-OFF: Report given to YU Arita.
[2019-02-12] MEDS: Dyna-Hex 2% Top Sol 2oz TOPIC SCH (20:10)
--- NOTE | 2019-02-12 20:39 | NUR ---
NURSE NOTES:Heparin subcut not given due to low platelet ct.
--- NOTE | 2019-02-12 23:22 | NUR ---
NURSE NOTES:Morphine 2mg ivp given due to throat pain FLACC 7
[2019-02-13] VITALS (25 sets, daily range): BP systolic 104–155; BP diastolic 43–77
--- NOTE | 2019-02-13 01:00 | NUR ---
NURSE NOTES:Resting well at this time and pain free.
--- NOTE | 2019-02-13 02:45 | Progress Note ---
DATE: 02/12/2019 CARDIOLOGY PROGRESS NOTE SUBJECTIVE: The patient remains on ventilator support. He continues dialysis three times a week. Presently with a right femoral Junior, but plans to put PermCath are noted. OBJECTIVE: VITAL SIGNS: Blood pressure 124/60, pulse 78, respirations 18, orally intubated, mechanically ventilated. LUNGS: Bilateral rhonchi. HEART: Regular rhythm and rate. Normal S1, S2. ABDOMEN: Soft. EXTREMITIES: No edema. IMPRESSION: 1. Respiratory failure, status post full arrest. 2. Acute myocardial ischemia and possible non-ST elevation infarction. 3. Hypertensive heart disease. 4. Paroxysmal atrial fibrillation. 5. End-stage renal disease, now on hemodialysis. PLAN: 1. Continue beta blockade. 2. Adjust electrolytes with hemodialysis. 3. Ventilator support with weaning. 4. Anti-platelet therapy. Jamari Gale M.D. DR: CLEMENTINA JOB#: [id number] CC:
--- NOTE | 2019-02-13 03:00 | NUR ---
NURSE NOTES:Pt had lg amt of watery to soft stool, Cleaned up pt. Rt femoral dillan cath drsg was changed as well.
[2019-02-13] MEDS: NovoLOG Insulin Flexpen SUBQ SCH ×3 (06:00→18:00)
--- NOTE | 2019-02-13 06:00 | NUR ---
NURSE NOTES: soft wrist restrained maintained for safety to avoid self extubation.
--- NOTE | 2019-02-13 07:13 | NUR ---
HAND-OFF: Report given to Yocasta NICHOLAS.
--- NOTE | 2019-02-13 07:16 | NUR ---
NURSE NOTES: report received from YU Arita.Pt awake, orally intubated with ETT 7.11/29 Lip line, AC 26 VT 550 FiO2 45% Peep 5. GT feeding placement checked and intact.Hold for residual above 100cc. Intolerance to Nepro at 35cc/hr since 0 according previous nurse.HOB elevated to prevent aspiration.Afebrile at this time.Abdomen soft and non distended, suprapubic catheter dressing intact clean and dry, draining yellow urine with no apparent sediment.BKA elevated with pillow.Help in self repositioning.Bilateral soft wrist restraints with no skin impairment.Call light within easy reach.Kept on close monitoring
--- NOTE | 2019-02-13 07:22 | NUR ---
RESPIRATORY NOTE: Received pt on AC 26, 550VT, 45%, PEEP +5. Pt orally intubated with ETT 7.5 @ 23cm lipline, secured by anchor fast. Pt alert, awake, and follows commands.Ghanshyam. clear-diminished breath sounds heard upon auscultation, sxn small amounts of thick brown lundy secretions. Vent plugged into red outlet, alarms are set and audible, ambu bag at bedside. Vent circuits and sxn tubing are secured and out of the way. Pt resting comfortably, in no apparent distress at this time. Will continue to monitor pt.
--- NOTE | 2019-02-13 08:10 | NUR ---
NURSE NOTES: Bilateral soft wrist restraint in place for safety, observed removing device.No skin impairment noted at this time
[2019-02-13] MEDS: Morphine Sulfate 2mg/ml Inj(IV/IM USE ONLY) IVP PRN (08:32)
[2019-02-13] MEDS: LORazepam Inj 2mg/ml 1ml IV PRN (08:33)
[2019-02-13] MEDS: Heparin 5000 units/ml inj SUBQ SCH ×2 (08:34→20:40)
--- NOTE | 2019-02-13 09:01 | NUR ---
NURSE NOTES: Seen by Dr Moran, will follow up with new order.
[2019-02-13 09:12] LABS: BASOPHILS % (AUTO) 0.7 % (0.0-2.0); EOSINOPHILS % (AUTO) 3.8 % (0.0-3.0); HEMOGLOBIN 9.4 G/DL (14.2-18.0); LYMPHOCYTES % (AUTO) 16.8 % (20.0-45.0); MEAN CORPUSCULAR VOLUME 94 FL (80-99); MONOCYTES % (AUTO) 6.8 % (1.0-10.0); NEUTROPHILS % (AUTO) 71.9 % (45.0-75.0); PLATELET COUNT 106 K/UL (150-450); RED CELL DISTRIBUTION WIDTH 19.5 % (11.6-14.8); WHITE BLOOD COUNT 10.9 K/UL (4.8-10.8)
[2019-02-13 09:21] LABS: ANION GAP 14 mmol/L (5-15); BLOOD UREA NITROGEN 51 mg/dL (7-18); CALCIUM 7.4 MG/DL (8.5-10.1); CARBON DIOXIDE 22 MMOL/L (21-32); CHLORIDE 112 MMOL/L (98-107); CREATININE 5.6 MG/DL (0.55-1.30); POTASSIUM 3.2 MMOL/L (3.5-5.1); SODIUM 148 MMOL/L (136-145)
--- NOTE | 2019-02-13 09:25 | Nephrology Progress Note ---
Assessment/Plan Plan ESRD - STARTED HD via femoral Junior. Needs PermaCath + AVF. To get a PermaCath soon. Patient has no DPOA or family and Perma Cath is needed to support life! Sepsis - per ID. Resp Failure - hope to wean soon. [place] [facility] [place] HD q MWF Subjective Subjective On vent. Objective Objective Last 24 Hour Vital Signs Date Time Temp Pulse Resp B/P (MAP) Pulse Ox O2 Delivery O2 Flow Rate FiO2 02/13/19 08:33 75 146/54 02/13/19 07:22 77 26 45 02/13/19 07:00 98.0 75 26 137/60 (85) 96 02/13/19 06:00 75 25 137/54 (81) 98 02/13/19 06:00 45 02/13/19 05:12 78 26 45 02/13/19 05:00 76 25 118/60 (79) 98 02/13/19 05:00 Mechanical Ventilator 02/13/19 04:00 98.2 72 26 120/54 (76) 98 02/13/19 04:00 45 02/13/19 04:00 76 02/13/19 03:24 74 26 45 02/13/19 03:00 73 26 130/54 (79) 98 02/13/19 02:00 75 26 118/52 (74) 96 02/13/19 01:00 73 26 120/50 (73) 96 02/13/19 00:58 75 26 45 02/13/19 00:00 75 02/13/19 00:00 98.0 75 26 124/50 (74) 96 02/13/19 00:00 45 02/13/19 00:00 Mechanical Ventilator 02/12/19 23:04 78 26 45 02/12/19 23:00 77 26 139/58 (85) 93 02/12/19 22:00 78 26 142/58 (86) 93 02/12/19 21:00 76 26 143/59 (87) 100 02/12/19 20:47 78 26 45 02/12/19 20:38 76 138/57 02/12/19 20:30 45 02/12/19 20:00 Mechanical Ventilator 02/12/19 20:00 98.4 76 26 138/57 (84) 100 02/12/19 20:00 78 02/12/19 18:57 83 26 45 02/12/19 18:00 86 26 93/62 (72) 100 02/12/19 17:11 87 26 45 02/12/19 17:00 98.8 81 26 136/54 (81) 100 02/12/19 16:00 83 02/12/19 16:00 45 02/12/19 16:00 Mechanical Ventilator 02/12/19 16:00 78 26 131/53 (79) 100 02/12/19 15:17 88 27 45 02/12/19 15:00 82 26 125/50 (75) 100 02/12/19 14:00 82 26 117/49 (71) 100 02/12/19 13:09 87 28 45 02/12/19 13:00 88 24 117/64 (81) 100 02/12/19 12:00 45 02/12/19 12:00 83 02/12/19 12:00 97.4 84 26 135/62 (86) 100 02/12/19 12:00 Mechanical Ventilator 02/12/19 11:29 88 26 45 02/12/19 11:00 86 26 135/62 (86) 100 02/12/19 10:00 90 25 114/82 (93) 99 Intake and Output 02/12/19 02/13/19 19:00 07:00 Intake Total 475 ml 270 ml Output Total 455 ml 365 ml Balance 20 ml -95 ml Free Water 0 ml 60 ml IV Total 110 ml Tube Feeding 315 ml 210 ml Blood Product 50 ml Output Urine Total 455 ml 365 ml # Bowel Movements 3 Laboratory Tests 02/12/19 11:00: White Blood Count 11.0H, Red Blood Count 3.28L, Hemoglobin 9.6L, Hematocrit 30.1L, Mean Corpuscular Volume 92, Mean Corpuscular Hemoglobin 29.2, Mean Corpuscular Hemoglobin Concent 31.8L, Red Cell Distribution Width 20.5H, Platelet Count 97L, Mean Platelet Volume 8.3, Neutrophils (%) (Auto) , Lymphocytes (%) (Auto) , Monocytes (%) (Auto) , Eosinophils (%) (Auto) , Basophils (%) (Auto) , Differential Total Cells Counted 100, Neutrophils % ( Manual) 71, Lymphocytes % (Manual) 19L, Monocytes % (Manual) 3, Eosinophils % ( Manual) 4H, Basophils % (Manual) 3H, Band Neutrophils 0, Platelet Estimate DecreasedL, Platelet Morphology Normal, Hypochromasia 2+, Anisocytosis 2+, Sodium Level 147H, Potassium Level 3.6, Chloride Level 111H, Carbon Dioxide Level 24, Anion Gap 12, Blood Urea Nitrogen 46H, Creatinine 5.1H, Estimat Glomerular Filtration Rate 11.4, Glucose Level 152H, Calcium Level 7.2L, Total Bilirubin 0.7, Aspartate Amino Transf (AST/SGOT) 19, Alanine Aminotransferase ( ALT/SGPT) 28, Alkaline Phosphatase 95, Total Protein 6.2L, Albumin 2.1L, Globulin 4.1, Albumin/Globulin Ratio 0.5L 02/13/19 08:50: White Blood Count 10.9H, Red Blood Count 3.20L, Hemoglobin 9.4L, Hematocrit 30.0L, Mean Corpuscular Volume 94, Mean Corpuscular Hemoglobin 29.4, Mean Corpuscular Hemoglobin Concent 31.3L, Red Cell Distribution Width 19.5H, Platelet Count 106L, Mean Platelet Volume 10.2H, Neutrophils (%) (Auto) 71.9, Lymphocytes (%) (Auto) 16.8L, Monocytes (%) (Auto) 6.8, Eosinophils (%) (Auto) 3.8H, Basophils (%) (Auto) 0.7, Sodium Level 148H, Potassium Level 3.2L, Chloride Level 112H, Carbon Dioxide Level 22, Anion Gap 14, Blood Urea Nitrogen 51H, Creatinine 5.6H, Estimat Glomerular Filtration Rate 10.2, Glucose Level 108H, Calcium Level 7.4L Height (Feet): 5 Height (Inches): 3.00 Weight (Pounds): 126 Objective On vent. Arousable. CV RR Lungs CTA Abd SNT. BS + E No CCE. B BKS stumps clean. Nery Quezada MD Feb 13, 2019 09:25
[2019-02-13] MEDS ORDERED: Heparin Sod 1000 units/ml 10ml IV ONE ×2 (09:30)
--- NOTE | 2019-02-13 10:11 | NUR ---
NURSE NOTES: Turned and repositioned,for skin management.Call light within easy reach.Kept on close monitoring
[2019-02-13] MEDS: Meropenem 500 MG in NS 55 ML IVPB SCH (10:13)
--- NOTE | 2019-02-13 10:14 | Infectious Diseases Prog Note ---
Assessment/Plan Assessment/Plan antibiotics : meropenem A 1. pneumonia 2. renal failure 3. respiratory failure 4. leucocytosis improving 5. rectal VRE colonization P 1. continue meropenem 2. will follow up cultures Subjective ROS Limited/Unobtainable: Yes Allergies: Coded Allergies: No Known Allergies (Unverified , 09/25/17) Objective Vital Signs Last 24 Hour Vital Signs Date Time Temp Pulse Resp B/P (MAP) Pulse Ox O2 Delivery O2 Flow Rate FiO2 02/13/19 09:02 98.4 02/13/19 09:00 96 02/13/19 09:00 78 23 45 02/13/19 09:00 75 26 139/59 (85) 98 02/13/19 08:33 75 146/54 02/13/19 08:00 75 26 146/54 (84) 02/13/19 08:00 Mechanical Ventilator 02/13/19 07:22 77 26 45 02/13/19 07:00 98.0 75 26 137/60 (85) 96 02/13/19 06:00 75 25 137/54 (81) 98 02/13/19 06:00 45 02/13/19 05:12 78 26 45 02/13/19 05:00 76 25 118/60 (79) 98 02/13/19 05:00 Mechanical Ventilator 02/13/19 04:00 98.2 72 26 120/54 (76) 98 02/13/19 04:00 45 02/13/19 04:00 76 02/13/19 03:24 74 26 45 02/13/19 03:00 73 26 130/54 (79) 98 02/13/19 02:00 75 26 118/52 (74) 96 02/13/19 01:00 73 26 120/50 (73) 96 02/13/19 00:58 75 26 45 02/13/19 00:00 75 02/13/19 00:00 98.0 75 26 124/50 (74) 96 02/13/19 00:00 45 02/13/19 00:00 Mechanical Ventilator 02/12/19 23:04 78 26 45 02/12/19 23:00 77 26 139/58 (85) 93 02/12/19 22:00 78 26 142/58 (86) 93 02/12/19 21:00 76 26 143/59 (87) 100 02/12/19 20:47 78 26 45 02/12/19 20:38 76 138/57 02/12/19 20:30 45 02/12/19 20:00 Mechanical Ventilator 02/12/19 20:00 98.4 76 26 138/57 (84) 100 02/12/19 20:00 78 02/12/19 18:57 83 26 45 02/12/19 18:00 86 26 93/62 (72) 100 02/12/19 17:11 87 26 45 02/12/19 17:00 98.8 81 26 136/54 (81) 100 02/12/19 16:00 83 02/12/19 16:00 45 02/12/19 16:00 Mechanical Ventilator 02/12/19 16:00 78 26 131/53 (79) 100 02/12/19 15:17 88 27 45 02/12/19 15:00 82 26 125/50 (75) 100 02/12/19 14:00 82 26 117/49 (71) 100 02/12/19 13:09 87 28 45 02/12/19 13:00 88 24 117/64 (81) 100 02/12/19 12:00 45 02/12/19 12:00 83 02/12/19 12:00 97.4 84 26 135/62 (86) 100 02/12/19 12:00 Mechanical Ventilator 02/12/19 11:29 88 26 45 02/12/19 11:00 86 26 135/62 (86) 100 Height (Feet): 5 Height (Inches): 3.00 Weight (Pounds): 126 HEENT: other - intubated Respiratory/Chest: lungs clear Cardiovascular: normal rate, regular rhythm, no gallop/murmur Abdomen: soft, non tender Extremities: no edema, other - stumps clean bilaterally, right groin catheter Laboratory Tests Test 02/12/19 11:00 02/13/19 08:50 White Blood Count 11.0 K/UL (4.8-10.8) H 10.9 K/UL (4.8-10.8) H Red Blood Count 3.28 M/UL (4.70-6.10) L 3.20 M/UL (4.70-6.10) L Hemoglobin 9.6 G/DL (14.2-18.0) L 9.4 G/DL (14.2-18.0) L Hematocrit 30.1 % (42.0-52.0) L 30.0 % (42.0-52.0) L Mean Corpuscular Volume 92 FL (80-99) 94 FL (80-99) Mean Corpuscular Hemoglobin 29.2 PG (27.0-31.0) 29.4 PG (27.0-31.0) Mean Corpuscular Hemoglobin Concent 31.8 G/DL (32.0-36.0) L 31.3 G/DL (32.0-36.0) L Red Cell Distribution Width 20.5 % (11.6-14.8) H 19.5 % (11.6-14.8) H Platelet Count 97 K/UL (150-450) L 106 K/UL (150-450) L Mean Platelet Volume 8.3 FL (6.5-10.1) 10.2 FL (6.5-10.1) H Neutrophils (%) (Auto) % (45.0-75.0) 71.9 % (45.0-75.0) Lymphocytes (%) (Auto) % (20.0-45.0) 16.8 % (20.0-45.0) L Monocytes (%) (Auto) % (1.0-10.0) 6.8 % (1.0-10.0) Eosinophils (%) (Auto) % (0.0-3.0) 3.8 % (0.0-3.0) H Basophils (%) (Auto) % (0.0-2.0) 0.7 % (0.0-2.0) Differential Total Cells Counted 100 Neutrophils % (Manual) 71 % (45-75) Lymphocytes % (Manual) 19 % (20-45) L Monocytes % (Manual) 3 % (1-10) Eosinophils % (Manual) 4 % (0-3) H Basophils % (Manual) 3 % (0-2) H Band Neutrophils 0 % (0-8) Platelet Estimate Decreased L Platelet Morphology Normal Hypochromasia 2+ Anisocytosis 2+ Sodium Level 147 MMOL/L (136-145) H 148 MMOL/L (136-145) H Potassium Level 3.6 MMOL/L (3.5-5.1) 3.2 MMOL/L (3.5-5.1) L Chloride Level 111 MMOL/L (98-107) H 112 MMOL/L (98-107) H Carbon Dioxide Level 24 MMOL/L (21-32) 22 MMOL/L (21-32) Anion Gap 12 mmol/L (5-15) 14 mmol/L (5-15) Blood Urea Nitrogen 46 mg/dL (7-18) H 51 mg/dL (7-18) H Creatinine 5.1 MG/DL (0.55-1.30) H 5.6 MG/DL (0.55-1.30) H Estimat Glomerular Filtration Rate 11.4 mL/min (>60) 10.2 mL/min (>60) Glucose Level 152 MG/DL (74-106) H 108 MG/DL (74-106) H Calcium Level 7.2 MG/DL (8.5-10.1) L 7.4 MG/DL (8.5-10.1) L Total Bilirubin 0.7 MG/DL (0.2-1.0) Aspartate Amino Transf (AST/SGOT) 19 U/L (15-37) Alanine Aminotransferase (ALT/SGPT) 28 U/L (12-78) Alkaline Phosphatase 95 U/L (46-116) Total Protein 6.2 G/DL (6.4-8.2) L Albumin 2.1 G/DL (3.4-5.0) L Globulin 4.1 g/dL Albumin/Globulin Ratio 0.5 (1.0-2.7) L Current Medications Medications (Trade) Dose Ordered Sig/Joe Route PRN Reason Start Time Stop Time Status Last Admin Dose Admin Acetaminophen (Tylenol) 650 mg Q4H PRN GT Mild Pain/Temp > 100.5 02/11/19 15:34 03/13/19 15:33 02/11/19 15:38 Al Hydroxide/Mg Hydroxide (Mylanta) 30 ml PRN ORAL 02/06/19 05:45 03/08/19 05:44 Carvedilol (Coreg) 3.125 mg EVERY 12 HOURS NG 02/12/19 09:00 03/14/19 08:59 02/13/19 08:33 Chlorhexidine Gluconate (Falguni-Hex 2%) 1 applic DAILY@2000 TOPIC 02/06/19 20:00 03/08/19 19:59 02/12/19 20:10 Dextrose (Dextrose 50%) 25 ml Q30M PRN IV Hypoglycemia 02/06/19 11:30 03/08/19 11:29 Dextrose (Dextrose 50%) 50 ml Q30M PRN IV Hypoglycemia 02/06/19 11:30 03/08/19 11:29 Epoetin Mayo (Epoetin Mayo(ESRD on dialysis)) 10,000 unit MON-MON-MON SUBQ 02/06/19 21:00 03/08/19 20:59 02/11/19 21:16 Heparin Sodium (Porcine) (Heparin 5000 units/ml) 5,000 units EVERY 12 HOURS SUBQ 02/06/19 09:00 03/08/19 08:59 02/13/19 08:34 Insulin Aspart (NovoLOG) Q6HR SUBQ 02/06/19 12:00 03/08/19 11:59 02/12/19 23:37 Lansoprazole (Prevacid) 30 mg DAILY NG 02/06/19 09:00 03/08/19 08:59 02/13/19 08:33 Lorazepam (Ativan 2mg/ml 1ml) 0.5 mg Q2H PRN IV For Anxiety 02/09/19 22:15 02/16/19 22:14 02/13/19 08:33 Meropenem 500 mg/ Sodium Chloride 55 ml @ 110 mls/hr DAILY IVPB 02/06/19 13:00 02/15/19 12:59 02/12/19 08:47 Morphine Sulfate (Morphine Sulfate) 2 mg Q2H PRN IVP For Pain 02/09/19 23:45 02/16/19 23:44 02/13/19 08:32 Sodium Chloride 1,000 ml @ 500 mls/hr Q2H PRN IVLG sbp<90 during hd 02/11/19 12:32 03/13/19 12:31 Sodium Chloride 1,000 ml @ 500 mls/hr Q2H PRN IVLG sbp<90 during hd 02/13/19 09:30 03/15/19 09:29 Alicia Greene MD Feb 13, 2019 10:14
--- NOTE | 2019-02-13 11:01 | NUR ---
NURSE NOTES: Spoke with Leanna at office to made aware GT feeding intolerance with last residual at 40cc light green.Awaiting call back
--- NOTE | 2019-02-13 11:38 | NUR ---
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 98.4 HR 79 RR 26 B/P 139/59 AC 26 TV 550 FIO2 45% PEEP 5 WBC 10.9 NA 148 K 3.2 IS: MEROPENEM IV HEPARIN SUBC COREG NGT EPOETIN SUBC ICU STATUS
--- NOTE | 2019-02-13 12:19 | NUR ---
NURSE NOTES: Patient seen by Dr Chambers,with order for ABG and if normal extubated.ABG done but abnormal , O2 60% , saturation 88.7, extubation held at this time.Patient FiO2 increase to 50%.Will continue to monitor Addendum: 02/13/19 at 1229 by Yocasta Riley RN DR Chambers made aware
--- NOTE | 2019-02-13 12:21 | NUR ---
RESPIRATORY NOTE: ABG done and in the system. Reported to YU Rust and MYRNA Rubin about low PO2. Increased FiO2 up to 50%, saturates at 97%. YU Rust and MYRNA Rubin made aware. pt is still in weaning CPAP PS 8, and tolerating well. No extubation today due to low PO2. Will monitor pt.
--- NOTE | 2019-02-13 12:46 | NUR ---
NURSE NOTES: Received call from radiology regarding tunnel cath placement,per Edward from radiology awaiting risk management confirmation for placement.Pt does not have family nor DPOA
--- NOTE | 2019-02-13 14:32 | NUR ---
NURSE NOTES: Turned and repositioned.Received call from radiology and spoke to Mono as stated "a bioethic meeting will be held for the patient , Perma-catheter placement cancelled per radiologist". Call light within easy reach,will continue to monitor
--- NOTE | 2019-02-13 14:56 | NUR ---
SS note Patient does not have decision maker to consent for Perma-cath. This Sw sent a consult to Bioethics, Dr. Morgan (risk management does not manage this).
--- NOTE | 2019-02-13 15:09 | Pulmonolgy Critical Care Note ---
Critical Care - Asmt/Plan Assessment/Plan: Pulmonary CCM Progress Note Assessment/Plan Impression: Respiratory failure, acute, did not tolerate wean today Chronic Obstructive Pulmonary Disease with exacerbation Pneumonia Acute kidney injury, h/o Chronic Kidney Disease Elevated troponin Anemia Congestive Heart Failure Previous Atrial Fibrillation Coronary Artery Disease Hypertension Hyperlipidemia Diabetes Bilateral amputations GERD ETOH abuse Plan AC Mechanical Ventilation- wean PEEP/wean as tolerated off pressors and monitor IV Antibiotics- ID noted HHN Monitor labs SCD Transfuse as needed HD for now [facility] and Renal Consultation medications/laboratory data/nursing notes/ICU care reviewed in detail note reviewed and edited care discussed with RN and RT ICU time spent 40 minutes Critical Care - Subjective Interval Events: remains ill on HD in ICU consultants appreciated ROS Limited/Unobtainable: Yes Condition: critical EKG Rhythm: Sinus Rhythm Critical Care - Objective ET-Tube: 7.5 ET Position: 23 Vital Signs Noted Labs noted Objective: WDWN poor LOC on vent clear breath sounds bilaterally without rhonchi or wheeze [id number] without MRG NABS nontender no HSM no CC nonfocal; sedated Micro: Labs: noted Microbiology Date/Time Source Procedure Growth Status 02/05/19 23:10 Blood Blood Culture - Preliminary NO GROWTH AFTER 24 HOURS Resulted 02/05/19 22:55 Blood Blood Culture - Preliminary NO GROWTH AFTER 24 HOURS Resulted 02/06/19 03:00 Rectum Received Critical Care - Objective Last 24 Hour Vital Signs Date Time Temp Pulse Resp B/P (MAP) Pulse Ox O2 Delivery O2 Flow Rate FiO2 02/13/19 14:43 73 20 50 02/13/19 13:00 73 20 120/55 (76) 98 02/13/19 12:52 71 20 50 02/13/19 12:21 50 02/13/19 12:00 78 02/13/19 12:00 Mechanical Ventilator 02/13/19 12:00 98.4 72 20 116/54 (74) 98 02/13/19 12:00 45 02/13/19 11:00 73 21 114/50 (71) 96 02/13/19 10:52 77 25 45 02/13/19 10:00 79 26 109/43 (65) 98 02/13/19 09:02 98.4 02/13/19 09:00 96 02/13/19 09:00 78 23 45 02/13/19 09:00 75 26 139/59 (85) 98 02/13/19 08:33 75 146/54 02/13/19 08:00 75 26 146/54 (84) 02/13/19 08:00 Mechanical Ventilator 02/13/19 08:00 75 02/13/19 07:22 77 26 45 02/13/19 07:00 98.0 75 26 137/60 (85) 96 02/13/19 06:00 75 25 137/54 (81) 98 02/13/19 06:00 45 02/13/19 05:12 78 26 45 02/13/19 05:00 76 25 118/60 (79) 98 02/13/19 05:00 Mechanical Ventilator 02/13/19 04:00 98.2 72 26 120/54 (76) 98 02/13/19 04:00 45 02/13/19 04:00 76 02/13/19 03:24 74 26 45 02/13/19 03:00 73 26 130/54 (79) 98 02/13/19 02:00 75 26 118/52 (74) 96 02/13/19 01:00 73 26 120/50 (73) 96 02/13/19 00:58 75 26 45 02/13/19 00:00 75 02/13/19 00:00 98.0 75 26 124/50 (74) 96 02/13/19 00:00 45 02/13/19 00:00 Mechanical Ventilator 02/12/19 23:04 78 26 45 02/12/19 23:00 77 26 139/58 (85) 93 02/12/19 22:00 78 26 142/58 (86) 93 02/12/19 21:00 76 26 143/59 (87) 100 02/12/19 20:47 78 26 45 02/12/19 20:38 76 138/57 02/12/19 20:30 45 02/12/19 20:00 Mechanical Ventilator 02/12/19 20:00 98.4 76 26 138/57 (84) 100 02/12/19 20:00 78 02/12/19 18:57 83 26 45 02/12/19 18:00 86 26 93/62 (72) 100 02/12/19 17:11 87 26 45 02/12/19 17:00 98.8 81 26 136/54 (81) 100 02/12/19 16:00 83 02/12/19 16:00 45 02/12/19 16:00 Mechanical Ventilator 02/12/19 16:00 78 26 131/53 (79) 100 02/12/19 15:17 88 27 45 Accucheck: 106 Critical Care - Subjective ROS Limited/Unobtainable: Yes Condition: stable FI02: 50 Vent Support Breath Rate: 26 Vent Support Mode: CPAP Vent Tidal Volume: 550 Sputum Amount: Scant PEEP: 5.0 PIP: 14 Tube Feeding Amount: 35 I&O: Intake and Output 02/12/19 02/13/19 18:59 06:59 Intake Total 475 ml 270 ml Output Total 485 ml 320 ml Balance -10 ml -50 ml Free Water 0 ml 60 ml IV Total 110 ml Tube Feeding 315 ml 210 ml Blood Product 50 ml Output Urine Total 485 ml 320 ml # Bowel Movements 3 ET-Tube: 7.5 ET Position: 23 Jamari Chambers MD Feb 13, 2019 15:09
--- NOTE | 2019-02-13 16:03 | NUR ---
NURSE NOTES: ADLs done,turned and repositioned.Mouth care done, dialysis nurse aware for schedule dialysis and will come later. Call light within easy reach.Will continue to monitor
[2019-02-13] MEDS ORDERED: NS 275ml ONE (16:54)
[2019-02-13] MEDS ORDERED: NS 500ML ONE (16:54)
--- NOTE | 2019-02-13 17:11 | NUR ---
RESPIRATORY NOTE: Pt back to AC mode. No SOB or resp distress noted. Hemodialysis in process. Will continue to monitor. YU Rust made aware.
--- NOTE | 2019-02-13 18:01 | Hematology/Onc Progress Note ---
Assessment/Plan Assessment/Plan Assessment and Recs: # Anemia of chronic disease due to underlying chronic medical issues, multifactorial --> Anemia workup has been ordered, rule out gi bleed --> No evidence of hemolysis is noted, peripheral smear has been reviewed. --> Hgb goal >7. Transfuse prn. --> Epogen and iron both started given ckd, ferritin only 274 (needs to be >500 for esrd pts) --> Medications have been reviewed --> low threshold for gi evaluation in case has occult + --> hgb trend 9.9-->9.4-->9.1-->9->9.4 # Leukocytosis/elevated white blood cell count, unspecified likely related to underlying stress reaction, pna, ARDS --> have reviewed peripheral smear and bandemia/neutrophilia noted --> continue antibiotics if they have been started by ID team --> 23-->17-->20k-->18k-->12-->11 # Thrombocytopenia - potential causes multifactorial, evaluate liver and viral etiologies to begin, also could be related to underlying medications patient has received. may be due to Hep C++ (need to confirm) --> Hep panel and HIV is negative --> US abd shows e/o trace ascites --> Peripheral smear ordered to evaluate for blasts /schistocytes is neg --> abx and other meds have been reviewed --> ok for ppx if plt >50k w/ either heparin or lovenox # Respiratory distress with ards --> has been intubated, on a vent --> as per pulm recs -> vent adjustment per pulm # Chronic Obstructive Pulmonary Disease with exacerbation --> breathing treatments on prn basis # Pneumonia --> on abx per id # ESRD - STARTED HD via femoral Junior. ++ PermaCath + AVF. --> hd per renal --> hd on 02/11 # Elevated troponin can be renal related --> per cards, r/o acs # Bilateral amputations # GERD # ETOH abuse The timing of this note does not necessarily reflect the time of the patient was seen. Greatly appreciate consultation! Subjective Neurologic/Psychiatric: Denies: no symptoms, anxiety, depressed, emotional problems, headache, numbness, paresthesia, pre-existing deficit, seizure, tingling, tremors, weakness, other Endocrine: Denies: no symptoms, excessive sweating, flushing, intolerance to cold, intolerance to heat, increased hunger, increased thirst, increased urine, unexplained weight gain, unexplained weight loss, other Hematologic/Lymphatic: Denies: no symptoms, anemia, easy bleeding, easy bruising, adenopathy, other Allergies: Coded Allergies: No Known Allergies (Unverified , 09/25/17) Subjective 02/08: is on jose and vanc, broad spectrum abx, no f/c, vent adjusted per pulm 02/10: given k, remains on vent, in icu, vent weaning pending 02/11: no events noted, no f/c, remains in icu, is on vent 02/12: no events, labs reviewed, permacath for tomorrow, intub 02/13: permacath procedure pending, currently on hold, to get bioethics consult Objective Objective Current Medications Medications (Trade) Dose Ordered Sig/Joe Route PRN Reason Start Time Stop Time Status Last Admin Dose Admin Acetaminophen (Tylenol) 650 mg Q4H PRN GT Mild Pain/Temp > 100.5 02/11/19 15:34 03/13/19 15:33 02/11/19 15:38 Al Hydroxide/Mg Hydroxide (Mylanta) 30 ml PRN ORAL 02/06/19 05:45 03/08/19 05:44 Carvedilol (Coreg) 3.125 mg EVERY 12 HOURS NG 02/12/19 09:00 03/14/19 08:59 02/13/19 08:33 Chlorhexidine Gluconate (Falguni-Hex 2%) 1 applic DAILY@1999 TOPIC 02/06/19 20:00 03/08/19 19:59 02/12/19 20:10 Dextrose (Dextrose 50%) 25 ml Q30M PRN IV Hypoglycemia 02/06/19 11:30 03/08/19 11:29 Dextrose (Dextrose 50%) 50 ml Q30M PRN IV Hypoglycemia 02/06/19 11:30 03/08/19 11:29 Epoetin Mayo (Epoetin Mayo(ESRD on dialysis)) 10,000 unit MON-MON-MON SUBQ 02/06/19 21:00 03/08/19 20:59 02/11/19 21:16 Heparin Sodium (Porcine) (Heparin 5000 units/ml) 5,000 units EVERY 12 HOURS SUBQ 02/06/19 09:00 03/08/19 08:59 02/13/19 08:34 Insulin Aspart (NovoLOG) Q6HR SUBQ 02/06/19 12:00 03/08/19 11:59 02/12/19 23:37 Lansoprazole (Prevacid) 30 mg DAILY NG 02/06/19 09:00 03/08/19 08:59 02/13/19 08:33 Lorazepam (Ativan 2mg/ml 1ml) 0.5 mg Q2H PRN IV For Anxiety 02/09/19 22:15 02/16/19 22:14 02/13/19 08:33 Meropenem 500 mg/ Sodium Chloride 55 ml @ 110 mls/hr DAILY IVPB 02/06/19 13:00 02/15/19 12:59 02/13/19 10:13 Morphine Sulfate (Morphine Sulfate) 2 mg Q2H PRN IVP For Pain 02/09/19 23:45 02/16/19 23:44 02/13/19 08:32 Sodium Chloride 1,000 ml @ 500 mls/hr Q2H PRN IVLG sbp<90 during hd 02/11/19 12:32 03/13/19 12:31 Sodium Chloride 1,000 ml @ 500 mls/hr Q2H PRN IVLG sbp<90 during hd 02/13/19 09:30 03/15/19 09:29 Last 24 Hour Vital Signs Date Time Temp Pulse Resp B/P (MAP) Pulse Ox O2 Delivery O2 Flow Rate FiO2 02/13/19 17:11 73 26 50 02/13/19 16:00 98.4 71 20 119/69 (86) 98 02/13/19 16:00 50 02/13/19 16:00 71 02/13/19 16:00 Mechanical Ventilator 02/13/19 15:00 72 20 125/54 (77) 98 02/13/19 14:43 73 20 50 02/13/19 14:00 71 20 116/49 (71) 98 02/13/19 13:00 73 20 120/55 (76) 98 02/13/19 12:52 71 20 50 02/13/19 12:21 50 02/13/19 12:00 78 02/13/19 12:00 Mechanical Ventilator 02/13/19 12:00 98.4 72 20 116/54 (74) 98 02/13/19 12:00 45 02/13/19 11:00 73 21 114/50 (71) 96 02/13/19 10:52 77 25 45 02/13/19 10:00 79 26 109/43 (65) 98 02/13/19 09:02 98.4 02/13/19 09:00 96 02/13/19 09:00 78 23 45 02/13/19 09:00 75 26 139/59 (85) 98 02/13/19 08:33 75 146/54 02/13/19 08:00 75 26 146/54 (84) 02/13/19 08:00 Mechanical Ventilator 02/13/19 08:00 75 02/13/19 07:22 77 26 45 02/13/19 07:00 98.0 75 26 137/60 (85) 96 02/13/19 06:00 75 25 137/54 (81) 98 02/13/19 06:00 45 02/13/19 05:12 78 26 45 02/13/19 05:00 76 25 118/60 (79) 98 02/13/19 05:00 Mechanical Ventilator 02/13/19 04:00 98.2 72 26 120/54 (76) 98 02/13/19 04:00 45 02/13/19 04:00 76 02/13/19 03:24 74 26 45 02/13/19 03:00 73 26 130/54 (79) 98 02/13/19 02:00 75 26 118/52 (74) 96 02/13/19 01:00 73 26 120/50 (73) 96 02/13/19 00:58 75 26 45 02/13/19 00:00 75 02/13/19 00:00 98.0 75 26 124/50 (74) 96 02/13/19 00:00 45 02/13/19 00:00 Mechanical Ventilator 02/12/19 23:04 78 26 45 02/12/19 23:00 77 26 139/58 (85) 93 02/12/19 22:00 78 26 142/58 (86) 93 02/12/19 21:00 76 26 143/59 (87) 100 02/12/19 20:47 78 26 45 02/12/19 20:38 76 138/57 02/12/19 20:30 45 02/12/19 20:00 Mechanical Ventilator 02/12/19 20:00 98.4 76 26 138/57 (84) 100 02/12/19 20:00 78 02/12/19 18:57 83 26 45 02/12/19 18:00 86 26 93/62 (72) 100 02/12/19 17:11 87 26 45 02/12/19 17:00 98.8 81 26 136/54 (81) 100 02/12/19 16:00 83 02/12/19 16:00 45 02/12/19 16:00 Mechanical Ventilator 02/12/19 16:00 78 26 131/53 (79) 100 02/12/19 15:17 88 27 45 02/12/19 15:00 82 26 125/50 (75) 100 02/12/19 14:00 82 26 117/49 (71) 100 02/12/19 13:09 87 28 45 02/12/19 13:00 88 24 117/64 (81) 100 02/12/19 12:00 45 02/12/19 12:00 83 02/12/19 12:00 97.4 84 26 135/62 (86) 100 02/12/19 12:00 Mechanical Ventilator 02/12/19 11:29 88 26 45 02/12/19 11:00 86 26 135/62 (86) 100 02/12/19 10:00 90 25 114/82 (93) 99 02/12/19 09:01 98 02/12/19 09:01 87 26 45 02/12/19 09:00 87 26 130/56 (80) 99 02/12/19 08:47 105 120/54 02/12/19 08:00 105 02/12/19 08:00 45 02/12/19 08:00 98.5 103 36 120/54 (76) 97 02/12/19 08:00 Mechanical Ventilator 02/12/19 07:13 97 25 45 45 02/12/19 07:10 45 02/12/19 07:00 95 23 120/54 (76) 98 02/12/19 06:00 88 24 124/45 (71) 98 02/12/19 05:17 88 26 45 45 02/12/19 05:00 89 23 136/57 (83) 98 02/12/19 04:00 88 02/12/19 04:00 98.0 86 24 133/58 (83) 98 02/12/19 04:00 Mechanical Ventilator 02/12/19 04:00 45 02/12/19 03:13 85 26 45 45 02/12/19 03:00 95 24 119/82 (94) 98 02/12/19 02:00 90 26 118/46 (70) 98 02/12/19 01:20 87 26 45 45 02/12/19 01:00 98.5 81 26 135/60 (85) 98 02/12/19 00:00 82 23 120/55 (76) 98 02/12/19 00:00 Mechanical Ventilator 02/12/19 00:00 85 02/12/19 00:00 45 02/11/19 23:00 84 23 127/55 (79) 98 02/11/19 22:42 84 26 45 45 02/11/19 22:00 83 24 136/61 (86) 98 02/11/19 21:10 82 26 45 45 02/11/19 21:00 83 25 134/62 (86) 98 02/11/19 20:00 Mechanical Ventilator 02/11/19 20:00 98.2 84 26 128/55 (79) 96 02/11/19 19:13 81 26 45 45 02/11/19 19:00 86 25 120/55 (76) 96 Intake and Output 02/12/19 02/13/19 18:59 06:59 Intake Total 475 ml 270 ml Output Total 485 ml 320 ml Balance -10 ml -50 ml Free Water 0 ml 60 ml IV Total 110 ml Tube Feeding 315 ml 210 ml Blood Product 50 ml Output Urine Total 485 ml 320 ml # Bowel Movements 3 Labs Test 02/11/19 04:00 02/11/19 07:29 02/11/19 07:39 02/12/19 04:00 Arterial Blood pH 7.533 (7.350-7.450) Arterial Blood Partial Pressure CO2 27.2 mmHg (35.0-45.0) Arterial Blood Partial Pressure O2 63.5 mmHg (75.0-100.0) Arterial Blood HCO3 22.4 mmol/L (22.0-26.0) Arterial Blood Oxygen Saturation 93.3 % (95-100) Arterial Blood Base Excess 0.4 (-2-2) Trevor Test Positive Troponin I 0.129 ng/mL (0.000-0.056) White Blood Count 12.7 K/UL (4.8-10.8) Red Blood Count 3.18 M/UL (4.70-6.10) Hemoglobin 9.1 G/DL (14.2-18.0) Hematocrit 28.8 % (42.0-52.0) Mean Corpuscular Volume 91 FL (80-99) Mean Corpuscular Hemoglobin 28.5 PG (27.0-31.0) Mean Corpuscular Hemoglobin Concent 31.5 G/DL (32.0-36.0) Red Cell Distribution Width 15.9 % (11.6-14.8) Platelet Count 97 K/UL (150-450) Mean Platelet Volume 9.0 FL (6.5-10.1) Neutrophils (%) (Auto) % (45.0-75.0) Lymphocytes (%) (Auto) % (20.0-45.0) Monocytes (%) (Auto) % (1.0-10.0) Eosinophils (%) (Auto) % (0.0-3.0) Basophils (%) (Auto) % (0.0-2.0) Differential Total Cells Counted 100 Neutrophils % (Manual) 84 % (45-75) Lymphocytes % (Manual) 8 % (20-45) Monocytes % (Manual) 3 % (1-10) Eosinophils % (Manual) 5 % (0-3) Basophils % (Manual) 0 % (0-2) Band Neutrophils 0 % (0-8) Platelet Estimate Decreased Platelet Morphology Normal Polychromasia 1+ Hypochromasia 1+ Anisocytosis 1+ Sodium Level 142 MMOL/L (136-145) Potassium Level 3.4 MMOL/L (3.5-5.1) Chloride Level 108 MMOL/L (98-107) Carbon Dioxide Level 26 MMOL/L (21-32) Anion Gap 8 mmol/L (5-15) Blood Urea Nitrogen 51 mg/dL (7-18) Creatinine 5.5 MG/DL (0.55-1.30) Estimat Glomerular Filtration Rate 10.4 mL/min (>60) Glucose Level 213 MG/DL (74-106) Calcium Level 6.9 MG/DL (8.5-10.1) Total Bilirubin 0.6 MG/DL (0.2-1.0) Aspartate Amino Transf (AST/SGOT) 21 U/L (15-37) Alanine Aminotransferase (ALT/SGPT) 37 U/L (12-78) Alkaline Phosphatase 84 U/L (46-116) Total Protein 5.7 G/DL (6.4-8.2) Albumin 1.9 G/DL (3.4-5.0) Globulin 3.8 g/dL Albumin/Globulin Ratio 0.5 (1.0-2.7) Stool Occult Blood Negative (NEGATIVE) Test 02/12/19 11:00 02/13/19 08:50 02/13/19 12:00 White Blood Count 11.0 K/UL (4.8-10.8) 10.9 K/UL (4.8-10.8) Red Blood Count 3.28 M/UL (4.70-6.10) 3.20 M/UL (4.70-6.10) Hemoglobin 9.6 G/DL (14.2-18.0) 9.4 G/DL (14.2-18.0) Hematocrit 30.1 % (42.0-52.0) 30.0 % (42.0-52.0) Mean Corpuscular Volume 92 FL (80-99) 94 FL (80-99) Mean Corpuscular Hemoglobin 29.2 PG (27.0-31.0) 29.4 PG (27.0-31.0) Mean Corpuscular Hemoglobin Concent 31.8 G/DL (32.0-36.0) 31.3 G/DL (32.0-36.0) Red Cell Distribution Width 20.5 % (11.6-14.8) 19.5 % (11.6-14.8) Platelet Count 97 K/UL (150-450) 106 K/UL (150-450) Mean Platelet Volume 8.3 FL (6.5-10.1) 10.2 FL (6.5-10.1) Neutrophils (%) (Auto) % (45.0-75.0) 71.9 % (45.0-75.0) Lymphocytes (%) (Auto) % (20.0-45.0) 16.8 % (20.0-45.0) Monocytes (%) (Auto) % (1.0-10.0) 6.8 % (1.0-10.0) Eosinophils (%) (Auto) % (0.0-3.0) 3.8 % (0.0-3.0) Basophils (%) (Auto) % (0.0-2.0) 0.7 % (0.0-2.0) Differential Total Cells Counted 100 Neutrophils % (Manual) 71 % (45-75) Lymphocytes % (Manual) 19 % (20-45) Monocytes % (Manual) 3 % (1-10) Eosinophils % (Manual) 4 % (0-3) Basophils % (Manual) 3 % (0-2) Band Neutrophils 0 % (0-8) Platelet Estimate Decreased Platelet Morphology Normal Hypochromasia 2+ Anisocytosis 2+ Sodium Level 147 MMOL/L (136-145) 148 MMOL/L (136-145) Potassium Level 3.6 MMOL/L (3.5-5.1) 3.2 MMOL/L (3.5-5.1) Chloride Level 111 MMOL/L (98-107) 112 MMOL/L (98-107) Carbon Dioxide Level 24 MMOL/L (21-32) 22 MMOL/L (21-32) Anion Gap 12 mmol/L (5-15) 14 mmol/L (5-15) Blood Urea Nitrogen 46 mg/dL (7-18) 51 mg/dL (7-18) Creatinine 5.1 MG/DL (0.55-1.30) 5.6 MG/DL (0.55-1.30) Estimat Glomerular Filtration Rate 11.4 mL/min (>60) 10.2 mL/min (>60) Glucose Level 152 MG/DL (74-106) 108 MG/DL (74-106) Calcium Level 7.2 MG/DL (8.5-10.1) 7.4 MG/DL (8.5-10.1) Total Bilirubin 0.7 MG/DL (0.2-1.0) Aspartate Amino Transf (AST/SGOT) 19 U/L (15-37) Alanine Aminotransferase (ALT/SGPT) 28 U/L (12-78) Alkaline Phosphatase 95 U/L (46-116) Total Protein 6.2 G/DL (6.4-8.2) Albumin 2.1 G/DL (3.4-5.0) Globulin 4.1 g/dL Albumin/Globulin Ratio 0.5 (1.0-2.7) Arterial Blood pH 7.385 (7.350-7.450) Arterial Blood Partial Pressure CO2 38.9 mmHg (35.0-45.0) Arterial Blood Partial Pressure O2 60.1 mmHg (75.0-100.0) Arterial Blood HCO3 22.8 mmol/L (22.0-26.0) Arterial Blood Oxygen Saturation 88.7 % (95-100) Arterial Blood Base Excess -2.0 (-2-2) Trevor Test Positive Height (Feet): 5 Height (Inches): 3.00 Weight (Pounds): 126 Objective PE Gen: fatigued, on mechanical ventilator Eyes: bilateral eye PERRL, b/l eye EOMI Respiratory: Bilateral wheezing, rhonchi ++ vent Cardiovascular: normal heart sound, normal peripheral pulses, rrr GI: non tender, soft, no guarding, no rebound ++ peg Msk normal inspection Neuro: sedated, no focal signs Skin: no rash, warm/dry Nicho Rebolledo MD Feb 13, 2019 18:01
--- NOTE | 2019-02-13 18:05 | NUR ---
NURSE NOTES: ADLS done, turned and repositioned.Dialysis done 500cc out. Call light within easy reach, will continue to monitor
--- NOTE | 2019-02-13 19:46 | NUR ---
HAND-OFF: Report given to YU Banegas. Addendum: 02/13/19 at 1948 by Yocasta Riley RN Dr Chambers made aware of potassium 3.2 no new order
--- NOTE | 2019-02-13 19:55 | NUR ---
NURSE NOTES: Report received from YU Rust. Observed pt sleeping in the bed, arousable by voice. Noted ETT 7.5 Lip line, AC 26, TV 550, FiO2 50%, Peep 5. OGT noted, running Nephro 35cc/hr. Abdomen soft and non distended. Noted suprapubic catheter dressing intact clean, draining yellow urine. BKA elevated with pillow. Bilateral soft wrist restraints with no skin impairment. Bed in the lowest position. Call light within reach. Side rails up x3. Will continue to monitor.
[2019-02-13] MEDS ORDERED: Metoclopramide 10mg/2ml Inj IVP PRN (20:15)
[2019-02-13] MEDS: Epoetin Alfa-EPBX(ESRD on dialysis)10,000 unit/ml vial SUBQ SCH (20:39)
[2019-02-13] MEDS: Dyna-Hex 2% Top Sol 2oz TOPIC SCH (20:39)
--- NOTE | 2019-02-13 21:37 | Surgery Progress Note ---
Surgery Progress Note Subjective Procedure Performed right femoral temporary hemodialysis catheter insertion Additional Comments not ready for extubation permacath pending bioethics review labs noted exam unchanged awake on vent Objective Last 24 Hour Vital Signs Date Time Temp Pulse Resp B/P (MAP) Pulse Ox O2 Delivery O2 Flow Rate FiO2 02/13/19 21:00 88 26 114/44 (67) 99 02/13/19 20:41 80 33 50 02/13/19 20:39 80 155/61 02/13/19 20:00 98.5 76 26 155/67 (96) 99 02/13/19 19:00 73 26 146/62 (90) 99 02/13/19 18:55 81 29 50 02/13/19 18:00 71 26 148/63 (91) 99 02/13/19 17:30 71 26 119/58 (78) 92 02/13/19 17:11 73 26 50 02/13/19 17:00 81 26 125/77 (93) 91 02/13/19 16:00 98.4 71 20 119/69 (86) 98 02/13/19 16:00 50 02/13/19 16:00 71 02/13/19 16:00 Mechanical Ventilator 02/13/19 15:00 72 20 125/54 (77) 98 02/13/19 14:43 73 20 50 02/13/19 14:00 71 20 116/49 (71) 98 02/13/19 13:00 73 20 120/55 (76) 98 02/13/19 12:52 71 20 50 02/13/19 12:21 50 02/13/19 12:00 78 02/13/19 12:00 Mechanical Ventilator 02/13/19 12:00 98.4 72 20 116/54 (74) 98 02/13/19 12:00 45 02/13/19 11:00 73 21 114/50 (71) 96 02/13/19 10:52 77 25 45 02/13/19 10:00 79 26 109/43 (65) 98 02/13/19 09:02 98.4 02/13/19 09:00 96 02/13/19 09:00 78 23 45 02/13/19 09:00 75 26 139/59 (85) 98 02/13/19 08:33 75 146/54 02/13/19 08:00 75 26 146/54 (84) 8/7/19 08:00 Mechanical Ventilator 02/13/19 08:00 75 02/13/19 07:22 77 26 45 02/13/19 07:00 98.0 75 26 137/60 (85) 96 02/13/19 06:00 75 25 137/54 (81) 98 02/13/19 06:00 45 02/13/19 05:12 78 26 45 02/13/19 05:00 76 25 118/60 (79) 98 02/13/19 05:00 Mechanical Ventilator 02/13/19 04:00 98.2 72 26 120/54 (76) 98 02/13/19 04:00 45 02/13/19 04:00 76 02/13/19 03:24 74 26 45 02/13/19 03:00 73 26 130/54 (79) 98 02/13/19 02:00 75 26 118/52 (74) 96 02/13/19 01:00 73 26 120/50 (73) 96 02/13/19 00:58 75 26 45 02/13/19 00:00 75 02/13/19 00:00 98.0 75 26 124/50 (74) 96 02/13/19 00:00 45 02/13/19 00:00 Mechanical Ventilator 02/12/19 23:04 78 26 45 02/12/19 23:00 77 26 139/58 (85) 93 02/12/19 22:00 78 26 142/58 (86) 93 I&O Intake and Output 02/12/19 02/13/19 18:59 06:59 Intake Total 475 ml 270 ml Output Total 485 ml 320 ml Balance -10 ml -50 ml Free Water 0 ml 60 ml IV Total 110 ml Tube Feeding 315 ml 210 ml Blood Product 50 ml Output Urine Total 485 ml 320 ml # Bowel Movements 3 Dressing: dry Wound: clean Cardiovascular: RSR Respiratory: clear, decreased breath sounds Abdomen: soft, present bowel sounds Extremities: other Laboratory Tests Test 02/13/19 08:50 02/13/19 12:00 White Blood Count 10.9 K/UL (4.8-10.8) H Red Blood Count 3.20 M/UL (4.70-6.10) L Hemoglobin 9.4 G/DL (14.2-18.0) L Hematocrit 30.0 % (42.0-52.0) L Mean Corpuscular Volume 94 FL (80-99) Mean Corpuscular Hemoglobin 29.4 PG (27.0-31.0) Mean Corpuscular Hemoglobin Concent 31.3 G/DL (32.0-36.0) L Red Cell Distribution Width 19.5 % (11.6-14.8) H Platelet Count 106 K/UL (150-450) L Mean Platelet Volume 10.2 FL (6.5-10.1) H Neutrophils (%) (Auto) 71.9 % (45.0-75.0) Lymphocytes (%) (Auto) 16.8 % (20.0-45.0) L Monocytes (%) (Auto) 6.8 % (1.0-10.0) Eosinophils (%) (Auto) 3.8 % (0.0-3.0) H Basophils (%) (Auto) 0.7 % (0.0-2.0) Sodium Level 148 MMOL/L (136-145) H Potassium Level 3.2 MMOL/L (3.5-5.1) L Chloride Level 112 MMOL/L (98-107) H Carbon Dioxide Level 22 MMOL/L (21-32) Anion Gap 14 mmol/L (5-15) Blood Urea Nitrogen 51 mg/dL (7-18) H Creatinine 5.6 MG/DL (0.55-1.30) H Estimat Glomerular Filtration Rate 10.2 mL/min (>60) Glucose Level 108 MG/DL (74-106) H Calcium Level 7.4 MG/DL (8.5-10.1) L Arterial Blood pH 7.385 (7.350-7.450) Arterial Blood Partial Pressure CO2 38.9 mmHg (35.0-45.0) Arterial Blood Partial Pressure O2 60.1 mmHg (75.0-100.0) L Arterial Blood HCO3 22.8 mmol/L (22.0-26.0) Arterial Blood Oxygen Saturation 88.7 % (95-100) *L Arterial Blood Base Excess -2.0 (-2-2) Trevor Test Positive Plan Problems: (1) ARDS (adult respiratory distress syndrome) (2) Anemia (3) Elevated troponin (4) MARY (acute kidney injury) (5) COPD with exacerbation (6) Abnormal LFTs Assessment & Plan: Abnormalities likely from shock liver. Gallbladder wall thickening nonspecific. Sonographic Rojas's is equivocal due to patient's condition. Trace ascites Bilateral pleural effusions. Suspected medical renal disease. Suspected nonobstructive stone in the right kidney. Trend labs Leukocytosis trending down Anemia LFTs normal now Improving (7) COPD (chronic obstructive pulmonary disease) (8) Respiratory distress (9) Pneumonia (10) HTN (hypertension) (11) Epileptic seizure, generalized (12) Shock liver Assessment & Plan: Shock liver likely from hypotension and cardiovascular arrest. Resuscitation with IV fluids ICU care and management Trend labs overall improving We will follow with recommendations (13) Suprapubic catheter Hari Batres Feb 13, 2019 21:37
--- NOTE | 2019-02-13 22:20 | NUR ---
NURSE NOTES: Pt agitated and tried to get out of bed. No distress noted. VS WNL. Saturation at 96%. Bed bath given. Bowel movement x1 noted, moderate amount, soft, brown stool noted. Will continue to monitor.
--- NOTE | 2019-02-13 22:45 | Progress Note ---
DATE: 02/13/2019 CARDIOLOGY PROGRESS NOTE SUBJECTIVE: The patient is status post hemodialysis with ultrafiltration today. He remains in the intensive care unit on ventilator support. OBJECTIVE: VITAL SIGNS: Blood pressure 148/63, pulse 71, and respirations 26. Afebrile. HEENT: Orally intubated. LUNGS: Bilateral breath sounds with rhonchi. CARDIAC: Regular rhythm and rate. Normal S1, S2. ABDOMEN: Soft. EXTREMITIES: No edema. LABORATORY DATA: White count 10.9, hemoglobin 9.4. ABG - 7.38, 39, and 60. Sodium 148, potassium 3.2, chloride 112, bicarb 22, BUN 51, and creatinine 5.6. IMPRESSION: 1. Respiratory failure, status post full arrest. 2. Acute myocardial ischemia and possible non-ST elevation infarction. 3. Severe protein-calorie malnutrition. 4. End-stage renal disease, now on hemodialysis. 5. Multiple electrolyte abnormalities. 6. Paroxysmal atrial fibrillation. PLAN: 1. Hemodialysis with ultrafiltration. 2. PermCath placement to follow. 3. Antimicrobials. 4. Respiratory hygiene. 5. Weaning efforts, tapering of oxygen. 6. Maintain anti-platelet therapy with aspirin and beta-blockade with titration. Jamari Gale M.D. DR: SEN JOB#: [id number] CC:
--- NOTE | 2019-02-13 23:12 | General Progress Note ---
Assessment/Plan Status: unchanged Assessment/Plan: Assessment - TF intolerance - Resp failure - NGT dependent Recommendations Continue current meds Trial of Reglan ATC. Elevate HOB Subjective Allergies: Coded Allergies: No Known Allergies (Unverified , 09/25/17) Subjective above noted some difficulty tolerating TF today d/w direct care staffer no diarrhea Objective Last 24 Hour Vital Signs Date Time Temp Pulse Resp B/P (MAP) Pulse Ox O2 Delivery O2 Flow Rate FiO2 02/13/19 22:38 82 26 50 02/13/19 21:00 88 26 114/44 (67) 99 02/13/19 20:41 80 33 50 02/13/19 20:39 80 155/61 02/13/19 20:00 Mechanical Ventilator 02/13/19 20:00 50 02/13/19 20:00 98.5 76 26 155/67 (96) 99 02/13/19 19:00 73 26 146/62 (90) 99 02/13/19 18:55 81 29 50 02/13/19 18:00 71 26 148/63 (91) 99 02/13/19 17:30 71 26 119/58 (78) 92 02/13/19 17:11 73 26 50 02/13/19 17:00 81 26 125/77 (93) 91 02/13/19 16:00 98.4 71 20 119/69 (86) 98 02/13/19 16:00 50 02/13/19 16:00 71 02/13/19 16:00 Mechanical Ventilator 02/13/19 15:00 72 20 125/54 (77) 98 02/13/19 14:43 73 20 50 02/13/19 14:00 71 20 116/49 (71) 98 02/13/19 13:00 73 20 120/55 (76) 98 02/13/19 12:52 71 20 50 02/13/19 12:21 50 02/13/19 12:00 78 02/13/19 12:00 Mechanical Ventilator 02/13/19 12:00 98.4 72 20 116/54 (74) 98 02/13/19 12:00 45 02/13/19 11:00 73 21 114/50 (71) 96 02/13/19 10:52 77 25 45 02/13/19 10:00 79 26 109/43 (65) 98 02/13/19 09:02 98.4 02/13/19 09:00 96 02/13/19 09:00 78 23 45 02/13/19 09:00 75 26 139/59 (85) 98 02/13/19 08:33 75 146/54 02/13/19 08:00 75 26 146/54 (84) 02/13/19 08:00 Mechanical Ventilator 02/13/19 08:00 75 02/13/19 07:22 77 26 45 02/13/19 07:00 98.0 75 26 137/60 (85) 96 02/13/19 06:00 75 25 137/54 (81) 98 02/13/19 06:00 45 02/13/19 05:12 78 26 45 02/13/19 05:00 76 25 118/60 (79) 98 02/13/19 05:00 Mechanical Ventilator 02/13/19 04:00 98.2 72 26 120/54 (76) 98 02/13/19 04:00 45 02/13/19 04:00 76 02/13/19 03:24 74 26 45 02/13/19 03:00 73 26 130/54 (79) 98 02/13/19 02:00 75 26 118/52 (74) 96 02/13/19 01:00 73 26 120/50 (73) 96 02/13/19 00:58 75 26 45 02/13/19 00:00 75 02/13/19 00:00 98.0 75 26 124/50 (74) 96 02/13/19 00:00 45 02/13/19 00:00 Mechanical Ventilator 02/12/19 23:04 78 26 45 02/12/19 23:00 77 26 139/58 (85) 93 Intake and Output 02/12/19 02/13/19 18:59 06:59 Intake Total 475 ml 270 ml Output Total 485 ml 320 ml Balance -10 ml -50 ml Free Water 0 ml 60 ml IV Total 110 ml Tube Feeding 315 ml 210 ml Blood Product 50 ml Output Urine Total 485 ml 320 ml # Bowel Movements 3 Laboratory Tests 02/13/19 08:50: White Blood Count 10.9H, Red Blood Count 3.20L, Hemoglobin 9.4L, Hematocrit 30.0L, Mean Corpuscular Volume 94, Mean Corpuscular Hemoglobin 29.4, Mean Corpuscular Hemoglobin Concent 31.3L, Red Cell Distribution Width 19.5H, Platelet Count 106L, Mean Platelet Volume 10.2H, Neutrophils (%) (Auto) 71.9, Lymphocytes (%) (Auto) 16.8L, Monocytes (%) (Auto) 6.8, Eosinophils (%) (Auto) 3.8H, Basophils (%) (Auto) 0.7, Sodium Level 148H, Potassium Level 3.2L, Chloride Level 112H, Carbon Dioxide Level 22, Anion Gap 14, Blood Urea Nitrogen 51H, Creatinine 5.6H, Estimat Glomerular Filtration Rate 10.2, Glucose Level 108H, Calcium Level 7.4L 02/13/19 12:00: Arterial Blood pH 7.385, Arterial Blood Partial Pressure CO2 38.9, Arterial Blood Partial Pressure O2 60.1L, Arterial Blood HCO3 22.8, Arterial Blood Oxygen Saturation 88.7*L, Arterial Blood Base Excess -2.0, Trevor Test Positive Height (Feet): 5 Height (Inches): 3.00 Weight (Pounds): 126 Objective Debilitated man confused, intubated, agitated NCAT supple CTA RRR abd soft ND ext:(+) amputations Elroy Wetzel MD Feb 13, 2019 23:12
[2019-02-14] VITALS (25 sets, daily range): BP systolic 96–149; BP diastolic 25–107
--- NOTE | 2019-02-14 | NUR ---
NURSE NOTES: Observed pt lying in the bed. Bowel movement x2 noted, moderate amount of brown, soft stool noted. Bed bath given. Skin intact. Reposition done with pillow support. Suctioned x2, brownish thick secretion noted. Will continue to monitor.
--- NOTE | 2019-02-14 01:51 | NUR ---
NURSE NOTES: Observed pt lying in the bed. No distress noted at this time. 60cc residual noted on OGT, feeding running at 35cc/hr. Will continue to monitor.
--- NOTE | 2019-02-14 04:00 | NUR ---
NURSE NOTES: Pt lying in the bed, mild agitation noted. Oral care done. Reposition done. Suprapubic dressing changed. No distress noted at this time. Will continue to monitor.
[2019-02-14] MEDS: NovoLOG Insulin Flexpen SUBQ SCH ×5 (05:31→21:00)
--- NOTE | 2019-02-14 07:15 | NUR ---
HAND-OFF: Report given to YU Valentine. No aucte distress noted at this time.
--- NOTE | 2019-02-14 07:16 | NUR ---
NURSE NOTES: Received patient from YU Delong. Patient resting in bed with no sign of acute distress. Patient complaining of pain in the trachea/esophagus presumably from the ET tube. Patient on bilateral soft wrist restraint due to his pulling out OGT multiple times previously. Patient not attempting to pull OGT or ET tube at this time. Patient repositioned and oral care performed at this time. Bilateral pulses present. skin intact. Patient blood pressure 120/44, HR 83, SpO2 100%, RR 24, and temp 98.2. Patient on mechanical ventilator with setting of AC 26, tidal volume 550, FiO2 50%, and PEEP 5. Patient has OGT that is patent, asymptomatic, and verified with auscultation and aspiration at this time. OGT previously verified with abdominal x-ray when first inserted. Tube feeding of Nepro running at 35mL/hr at this time. Patient reported to have residual not exceeding 100mL over night. Will continue to monitor residual. Patient has right femoral luis angel catheter that is patent, asymptomatic, and dressing changed last night. Patient has suprapubic catheter that is patient, asymptomatic, and draining straw/yellow urine. Patient did not have labs drawn this morning. Will follow up with MD. Patient is to have weaning trial this morning. Will follow up with RT. Bed in low position with bed alarm on, call light in reach.
--- NOTE | 2019-02-14 08:02 | Infectious Diseases Prog Note ---
Assessment/Plan Assessment/Plan A; Pneumonia Acute respiratory failure DM with hyperglycemia CKD, acute renal failure, on HD Anemia Decreased albumin PAF Elevated troponin Diarrhea VRE carrier P; Continue Meropenem Subjective ROS Limited/Unobtainable: Yes Respiratory: Reports: other - failed weaning yesterday Neurologic: Reports: confusion, other - on restraint Allergies: Coded Allergies: No Known Allergies (Unverified , 09/25/17) Objective Vital Signs Last 24 Hour Vital Signs Date Time Temp Pulse Resp B/P (MAP) Pulse Ox O2 Delivery O2 Flow Rate FiO2 02/14/19 07:30 80 28 50 02/14/19 07:00 83 22 120/83 (95) 98 02/14/19 06:00 84 21 147/63 (91) 97 02/14/19 05:10 80 27 50 02/14/19 05:00 81 22 133/52 (79) 100 02/14/19 04:00 79 02/14/19 04:00 98.6 80 24 136/58 (84) 99 02/14/19 04:00 Mechanical Ventilator 02/14/19 04:00 50 02/14/19 03:02 81 26 50 02/14/19 03:00 79 26 149/56 (87) 100 02/14/19 02:00 84 26 119/45 (69) 100 02/14/19 01:00 78 26 129/48 (75) 99 02/14/19 00:31 79 26 50 02/14/19 00:00 86 02/14/19 00:00 50 02/14/19 00:00 98.3 82 26 149/65 (93) 97 02/14/19 00:00 Mechanical Ventilator 02/13/19 23:00 84 26 129/48 (75) 99 02/13/19 22:38 82 26 50 02/13/19 22:00 87 26 104/44 (64) 96 02/13/19 21:00 88 26 114/44 (67) 99 02/13/19 20:41 80 33 50 02/13/19 20:39 80 155/61 02/13/19 20:00 Mechanical Ventilator 02/13/19 20:00 76 02/13/19 20:00 50 02/13/19 20:00 98.5 76 26 155/67 (96) 99 02/13/19 19:00 73 26 146/62 (90) 99 02/13/19 18:55 81 29 50 02/13/19 18:00 71 26 148/63 (91) 99 02/13/19 17:30 71 26 119/58 (78) 92 02/13/19 17:11 73 26 50 02/13/19 17:00 81 26 125/77 (93) 91 02/13/19 16:00 98.4 71 20 119/69 (86) 98 02/13/19 16:00 50 02/13/19 16:00 71 02/13/19 16:00 Mechanical Ventilator 02/13/19 15:00 72 20 125/54 (77) 98 02/13/19 14:43 73 20 50 02/13/19 14:00 71 20 116/49 (71) 98 02/13/19 13:00 73 20 120/55 (76) 98 02/13/19 12:52 71 20 50 02/13/19 12:21 50 02/13/19 12:00 78 02/13/19 12:00 Mechanical Ventilator 02/13/19 12:00 98.4 72 20 116/54 (74) 98 02/13/19 12:00 45 02/13/19 11:00 73 21 114/50 (71) 96 02/13/19 10:52 77 25 45 02/13/19 10:00 79 26 109/43 (65) 98 02/13/19 09:02 98.4 02/13/19 09:00 96 02/13/19 09:00 78 23 45 02/13/19 09:00 75 26 139/59 (85) 98 02/13/19 08:33 75 146/54 02/13/19 08:00 75 26 146/54 (84) 02/13/19 08:00 Mechanical Ventilator 02/13/19 08:00 75 Height (Feet): 5 Height (Inches): 3.00 Weight (Pounds): 118 General Appearance: no acute distress HEENT: other - orally intubated Respiratory/Chest: lungs clear, other - on ventilator Cardiovascular: normal rate, other - R femoral HD line Abdomen: soft, non tender, other - orogastric feeding tube Extremities: no edema, other - Bilateral BKA Neurologic/Psychiatric: unresponsiveness Laboratory Tests Test 02/13/19 08:50 02/13/19 12:00 White Blood Count 10.9 K/UL (4.8-10.8) H Red Blood Count 3.20 M/UL (4.70-6.10) L Hemoglobin 9.4 G/DL (14.2-18.0) L Hematocrit 30.0 % (42.0-52.0) L Mean Corpuscular Volume 94 FL (80-99) Mean Corpuscular Hemoglobin 29.4 PG (27.0-31.0) Mean Corpuscular Hemoglobin Concent 31.3 G/DL (32.0-36.0) L Red Cell Distribution Width 19.5 % (11.6-14.8) H Platelet Count 106 K/UL (150-450) L Mean Platelet Volume 10.2 FL (6.5-10.1) H Neutrophils (%) (Auto) 71.9 % (45.0-75.0) Lymphocytes (%) (Auto) 16.8 % (20.0-45.0) L Monocytes (%) (Auto) 6.8 % (1.0-10.0) Eosinophils (%) (Auto) 3.8 % (0.0-3.0) H Basophils (%) (Auto) 0.7 % (0.0-2.0) Sodium Level 148 MMOL/L (136-145) H Potassium Level 3.2 MMOL/L (3.5-5.1) L Chloride Level 112 MMOL/L (98-107) H Carbon Dioxide Level 22 MMOL/L (21-32) Anion Gap 14 mmol/L (5-15) Blood Urea Nitrogen 51 mg/dL (7-18) H Creatinine 5.6 MG/DL (0.55-1.30) H Estimat Glomerular Filtration Rate 10.2 mL/min (>60) Glucose Level 108 MG/DL (74-106) H Calcium Level 7.4 MG/DL (8.5-10.1) L Arterial Blood pH 7.385 (7.350-7.450) Arterial Blood Partial Pressure CO2 38.9 mmHg (35.0-45.0) Arterial Blood Partial Pressure O2 60.1 mmHg (75.0-100.0) L Arterial Blood HCO3 22.8 mmol/L (22.0-26.0) Arterial Blood Oxygen Saturation 88.7 % (95-100) *L Arterial Blood Base Excess -2.0 (-2-2) Trevor Test Positive Current Medications Medications (Trade) Dose Ordered Sig/Joe Route PRN Reason Start Time Stop Time Status Last Admin Dose Admin Acetaminophen (Tylenol) 650 mg Q4H PRN GT Mild Pain/Temp > 100.5 02/11/19 15:34 03/13/19 15:33 02/11/19 15:38 Al Hydroxide/Mg Hydroxide (Mylanta) 30 ml PRN ORAL 02/06/19 05:45 03/08/19 05:44 Carvedilol (Coreg) 3.125 mg EVERY 12 HOURS NG 02/12/19 09:00 03/14/19 08:59 02/13/19 20:39 Chlorhexidine Gluconate (Falguni-Hex 2%) 1 applic DAILY@2000 TOPIC 02/06/19 20:00 03/08/19 19:59 02/13/19 20:39 Dextrose (Dextrose 50%) 25 ml Q30M PRN IV Hypoglycemia 02/06/19 11:30 03/08/19 11:29 Dextrose (Dextrose 50%) 50 ml Q30M PRN IV Hypoglycemia 02/06/19 11:30 03/08/19 11:29 Epoetin Mayo (Epoetin Mayo(ESRD on dialysis)) 10,000 unit MON-MON-MON SUBQ 02/06/19 21:00 03/08/19 20:59 02/13/19 20:39 Heparin Sodium (Porcine) (Heparin 5000 units/ml) 5,000 units EVERY 12 HOURS SUBQ 02/06/19 09:00 03/08/19 08:59 02/13/19 20:40 Insulin Aspart (NovoLOG) Q6HR SUBQ 02/06/19 12:00 03/08/19 11:59 02/14/19 05:31 Lansoprazole (Prevacid) 30 mg DAILY NG 02/06/19 09:00 03/08/19 08:59 02/13/19 08:33 Lorazepam (Ativan 2mg/ml 1ml) 0.5 mg Q2H PRN IV For Anxiety 02/09/19 22:15 02/16/19 22:14 02/13/19 08:33 Meropenem 500 mg/ Sodium Chloride 55 ml @ 110 mls/hr DAILY IVPB 02/06/19 13:00 02/15/19 12:59 02/13/19 10:13 Metoclopramide HCl (Reglan) 5 mg Q6H PRN IVP Nausea & Vomiting 02/13/19 20:15 03/15/19 20:14 02/13/19 20:48 Morphine Sulfate (Morphine Sulfate) 2 mg Q2H PRN IVP For Pain 02/09/19 23:45 02/16/19 23:44 02/13/19 08:32 Sodium Chloride 1,000 ml @ 500 mls/hr Q2H PRN IVLG sbp<90 during hd 02/11/19 12:32 03/13/19 12:31 Sodium Chloride 1,000 ml @ 500 mls/hr Q2H PRN IVLG sbp<90 during hd 02/13/19 09:30 03/15/19 09:29 Emir Madsen MD Feb 14, 2019 08:02
--- NOTE | 2019-02-14 08:31 | Critical Care Progress Note ---
Assessment/Plan Assessment/Plan Impression: Respiratory failure, acute Chronic Obstructive Pulmonary Disease with exacerbation Pneumonia Acute kidney injury, h/o Chronic Kidney Disease Elevated troponin Anemia Congestive Heart Failure Previous Atrial Fibrillation Coronary Artery Disease Hypertension Hyperlipidemia Diabetes Bilateral amputations GERD ETOH abuse Plan on vent; try to wean daily IV Antibiotics- ID noted HHN Monitor labs monitor HH HD for now Protonix organizational effectiveness consultant care reviewed nutrition free water may need trach medications/laboratory data/nursing notes/ICU care reviewed in detail note reviewed and edited care discussed with RN and RT ICU time spent 40 minutes Critical Care - Subjective ROS Limited/Unobtainable: Yes Condition: critical Residuals: minimal Tube Feeding Tolerated: yes I&O: Intake and Output 02/13/19 02/14/19 19:00 07:00 Intake Total 895 ml 655 ml Output Total 460 ml 360 ml Balance 435 ml 295 ml Free Water 60 ml 240 ml IV Total 55 ml Tube Feeding 280 ml 415 ml Hemodialysis 500 ml Output Urine Total 460 ml 360 ml # Bowel Movements 4 Critical Care - Objective ET-Tube: 7.5 ET Position: 23 Last 24 Hour Vital Signs Date Time Temp Pulse Resp B/P (MAP) Pulse Ox O2 Delivery O2 Flow Rate FiO2 02/14/19 07:30 80 28 50 02/14/19 07:00 83 22 120/83 (95) 98 02/14/19 06:00 84 21 147/63 (91) 97 02/14/19 05:10 80 27 50 02/14/19 05:00 81 22 133/52 (79) 100 02/14/19 04:00 79 02/14/19 04:00 98.6 80 24 136/58 (84) 99 02/14/19 04:00 Mechanical Ventilator 02/14/19 04:00 50 02/14/19 03:02 81 26 50 02/14/19 03:00 79 26 149/56 (87) 100 02/14/19 02:00 84 26 119/45 (69) 100 02/14/19 01:00 78 26 129/48 (75) 99 02/14/19 00:31 79 26 50 02/14/19 00:00 86 02/14/19 00:00 50 02/14/19 00:00 98.3 82 26 149/65 (93) 97 02/14/19 00:00 Mechanical Ventilator 02/13/19 23:00 84 26 129/48 (75) 99 02/13/19 22:38 82 26 50 02/13/19 22:00 87 26 104/44 (64) 96 02/13/19 21:00 88 26 114/44 (67) 99 02/13/19 20:41 80 33 50 02/13/19 20:39 80 155/61 02/13/19 20:00 Mechanical Ventilator 02/13/19 20:00 76 02/13/19 20:00 50 02/13/19 20:00 98.5 76 26 155/67 (96) 99 02/13/19 19:00 73 26 146/62 (90) 99 02/13/19 18:55 81 29 50 02/13/19 18:00 71 26 148/63 (91) 99 02/13/19 17:30 71 26 119/58 (78) 92 02/13/19 17:11 73 26 50 02/13/19 17:00 81 26 125/77 (93) 91 02/13/19 16:00 98.4 71 20 119/69 (86) 98 02/13/19 16:00 50 02/13/19 16:00 71 02/13/19 16:00 Mechanical Ventilator 02/13/19 15:00 72 20 125/54 (77) 98 02/13/19 14:43 73 20 50 02/13/19 14:00 71 20 116/49 (71) 98 02/13/19 13:00 73 20 120/55 (76) 98 02/13/19 12:52 71 20 50 02/13/19 12:21 50 02/13/19 12:00 78 02/13/19 12:00 Mechanical Ventilator 02/13/19 12:00 98.4 72 20 116/54 (74) 98 02/13/19 12:00 45 02/13/19 11:00 73 21 114/50 (71) 96 02/13/19 10:52 77 25 45 02/13/19 10:00 79 26 109/43 (65) 98 02/13/19 09:02 98.4 02/13/19 09:00 96 02/13/19 09:00 78 23 45 02/13/19 09:00 75 26 139/59 (85) 98 02/13/19 08:33 75 146/54 Labs: Laboratory Tests Test 02/13/19 08:50 8/7/19 12:00 White Blood Count 10.9 K/UL (4.8-10.8) H Red Blood Count 3.20 M/UL (4.70-6.10) L Hemoglobin 9.4 G/DL (14.2-18.0) L Hematocrit 30.0 % (42.0-52.0) L Mean Corpuscular Volume 94 FL (80-99) Mean Corpuscular Hemoglobin 29.4 PG (27.0-31.0) Mean Corpuscular Hemoglobin Concent 31.3 G/DL (32.0-36.0) L Red Cell Distribution Width 19.5 % (11.6-14.8) H Platelet Count 106 K/UL (150-450) L Mean Platelet Volume 10.2 FL (6.5-10.1) H Neutrophils (%) (Auto) 71.9 % (45.0-75.0) Lymphocytes (%) (Auto) 16.8 % (20.0-45.0) L Monocytes (%) (Auto) 6.8 % (1.0-10.0) Eosinophils (%) (Auto) 3.8 % (0.0-3.0) H Basophils (%) (Auto) 0.7 % (0.0-2.0) Sodium Level 148 MMOL/L (136-145) H Potassium Level 3.2 MMOL/L (3.5-5.1) L Chloride Level 112 MMOL/L (98-107) H Carbon Dioxide Level 22 MMOL/L (21-32) Anion Gap 14 mmol/L (5-15) Blood Urea Nitrogen 51 mg/dL (7-18) H Creatinine 5.6 MG/DL (0.55-1.30) H Estimat Glomerular Filtration Rate 10.2 mL/min (>60) Glucose Level 108 MG/DL (74-106) H Calcium Level 7.4 MG/DL (8.5-10.1) L Arterial Blood pH 7.385 (7.350-7.450) Arterial Blood Partial Pressure CO2 38.9 mmHg (35.0-45.0) Arterial Blood Partial Pressure O2 60.1 mmHg (75.0-100.0) L Arterial Blood HCO3 22.8 mmol/L (22.0-26.0) Arterial Blood Oxygen Saturation 88.7 % (95-100) *L Arterial Blood Base Excess -2.0 (-2-2) Trevor Test Positive Objective: WDWN poor LOC on vent clear breath sounds bilaterally without rhonchi or wheeze [id number] without MRG NABS nontender no HSM no CC nonfocal; sedated Accucheck: 160 Theo Noriega MD Feb 14, 2019 08:31
[2019-02-14] MEDS: Heparin 5000 units/ml inj SUBQ SCH ×2 (09:00→21:00)
[2019-02-14] MEDS: Meropenem 500 MG in NS 55 ML IVPB SCH (09:14)
[2019-02-14] MEDS: Acetaminophen 650mg/20.3ml GT PRN (09:15)
--- NOTE | 2019-02-14 10:52 | NUR ---
RD ASSESSMENT & RECOMMENDATIONS SEE CARE ACTIVITY FOR COMPLETE ASSESSMENT DAILY ESTIMATED NEEDS: Needs based on HD, Critical Care/ 57kg 22-32 kcals/kg 2107-9285 total kcals 1.2-2 g protein/kg 68-114 g total protein 20-22 mL/kg 7613-7718 total fluid mLs NUTRITION DIAGNOSIS: * Swallowing difficulty R/T respiratory status as evidenced by s/p code blue, orally intubated and sedated in ICU, on OGT feeds * Altered nutrition related lab values R/T renal dysfunction, DM as evidenced by elev creat(5.6) now on HD, elev BNP (>87649), elev BGs(300's-> 213 198). CURRENT TF:Nepro @35ml/hr x24 hrs + PS x2 (PO DIET RECOMMENDATIONS: COAT REPAIR INSPECTOR eval once extubated -> CCHO MED, RENAL) ENTERAL NUTRITION RECOMMENDATIONS: Nepro @ 35ml/hr x 24 hrs + Prosource BID to provide 840ml, 1512kcal, 68g +22g prot, 640ml free water * Maintain current TF * HOB over 30 degrees/ water flush per MD --- With improved tolerance on reglan, rec TF increase to 40ml/hr for 24 hrs to provide 960ml, 1728 kcal, 78g pro, 698ml free H2O. ADDITIONAL RECOMMENDATIONS: * Calibrated bedscale wt for accurate CBW Daily wts showing wt downtrend * Monitor tolerance/ residuals- ability to increase TF * Monitor renal fxn and lytes -> replete as needed (low K), rec to check phos
--- NOTE | 2019-02-14 11:26 | General Progress Note ---
Progress Note Progress Note Bioethics Asked about appropriateness of placement of PermaCath for dialysis. This is not a Bioethics issue despite the fact that the patient is unrepresented. The patients speaks Ethiopian and can probably be consented. He does not have dementia.If it is medically necesary for him to have a Permacath one physician can make the decision and proceed. MD Cathy Samaniego Michael S. MD Feb 14, 2019 11:26
--- NOTE | 2019-02-14 11:50 | NUR ---
NURSE NOTES: Patient has been weaning for about an hour on CPAP pressure support 8 with FiO2 50%. ABG pH 7.393, pCO2 33.2, pO2 99.9, HCO3 19.8, base excess -4.9. Notified Dr Noriega. Awaiting call back.
--- NOTE | 2019-02-14 12:00 | NUR ---
NURSE NOTES: Patient resting in bed with no sign of acute distress. Patient blood pressure 125/49, HR 77, SpO2 98%, RR 24, and temp 97.6. Patient weaning on mechanical ventilator at this time on CPAP with pressure support 8 and FiO2 50%. ABG done Results reported to Dr Noriega. Patient to be extubated. OGT will be removed with extubation. Patient will remain NPO after extubation until swallowing can be assessed. Once swallowing is assessed, will ask MD for diet order. Dressing changed on right femoral Nba catheter. Dressing had become soiled. Dressing now intact with central line patent, asymptomatic, and saline locked. Suprapubic catheter remains patient, asymptomatic, and draining straw/yellow urine. Dressing changed on suprapubic catheter at this time. Patient cleaned and repositioned and oral care done at this time. Bed in low position with bed alarm on, call light in reach.
--- NOTE | 2019-02-14 12:30 | NUR ---
INSURANCE UPDATED CLINICALS and REVIEW HAVE BEEN FAXED PLEASE FAX THE REVIEW AND CLINICAL TO: [facility] [place]: NICHOLAS Martin P- [phone] F- [phone]....REVIEW/CLINICAL
--- NOTE | 2019-02-14 12:45 | NUR ---
RESPIRATORY NOTE: Extubated pt per Dr. Noriega's order. Pt is on cool aerosol 50% 12L, saturates 100%. No stridor heard upon extubation. Pt is awake, alert, resting comfortably in bed. NO SOB or resp distress noted. RN Meme at bedside and aware. Will continue to monitor pt.
--- NOTE | 2019-02-14 13:04 | NUR ---
NURSE NOTES: Received order for extubation from Dr Noriega via telephone order, read back. Order read back and confirmed. Patient extubated at 1245. Patient now on cool aerosol mask at 50% FiO2 with SpO2 100% and RR 25. Notified Dr Noriega that patient was successfully extubated. Will continue to monitor patient for signs of respiratory distress.
--- NOTE | 2019-02-14 14:00 | NUR ---
NURSE NOTES: Patient extubated at 1245. Patient now on cool aerosol mask at 50% FiO2. Patient resting comfortably in bed with no sign of acute distress. patient asking for food at this time. Will follow up with swallowing assessment and swallow evaluation with speech therapist if necessary. Patient's blood pressure lower than baseline at 101/49, SpO2 98%, HR 66, and RR 26. Will continue to monitor and notify MD if blood pressure continues to drop. Patient repositioned at this time.
--- NOTE | 2019-02-14 15:09 | NUR ---
MARKET DEVELOPMENT MANAGERPLANT CHIEF SI: RESP FAILURE S/P EXTUBATION T. 98.2 HR 80 RR 28 B/P 128/50 PH 7.39 PCO2 33.2 PO2 99.9 HCO3 19.8 O2 SAT 96.6 VM 50% IS: MEROPENEM IV HEPARIN SUBC REGLAN IV ICU STATUS
--- NOTE | 2019-02-14 15:16 | NUR ---
*-* INSURANCE *-* UPDATED CLINICALS AND REVIEWS HAVE BEEN FAXED TO: /[facility] @ [phone] - [facility]# [id number] NCM: NICHOLAS Martin P- [phone] F- [phone]....REVIEW/CLINICAL
--- NOTE | 2019-02-14 15:18 | Nephrology Progress Note ---
Assessment/Plan Plan ESRD - STARTED HD via femoral Junior. Needs PermaCath + AVF. To get a PermaCath soon. Patient has no DPOA or family and Perma Cath is needed to support life! Now patient is extubated and willing to sign a consent. Sepsis - per ID. Resp Failure - hope to wean soon. [place] [facility] [place]. HD [place] MWF Subjective Subjective Extubated Objective Objective Last 24 Hour Vital Signs Date Time Temp Pulse Resp B/P (MAP) Pulse Ox O2 Delivery O2 Flow Rate FiO2 02/14/19 12:45 Venturi Mask 12.0 50 02/14/19 12:00 Mechanical Ventilator 02/14/19 12:00 72 02/14/19 11:20 78 26 50 02/14/19 10:00 80 29 131/52 (78) 100 02/14/19 09:40 79 22 50 02/14/19 09:35 80 28 50 02/14/19 09:15 81 128/107 02/14/19 09:00 84 24 128/107 (114) 100 02/14/19 08:00 50 02/14/19 08:00 98.2 78 26 126/50 (75) 100 02/14/19 08:00 81 02/14/19 08:00 Mechanical Ventilator 02/14/19 07:30 80 28 50 02/14/19 07:00 83 22 120/83 (95) 98 02/14/19 06:00 84 21 147/63 (91) 97 02/14/19 05:10 80 27 50 02/14/19 05:00 81 22 133/52 (79) 100 02/14/19 04:00 79 02/14/19 04:00 98.6 80 24 136/58 (84) 99 02/14/19 04:00 Mechanical Ventilator 02/14/19 04:00 50 02/14/19 03:02 81 26 50 02/14/19 03:00 79 26 149/56 (87) 100 02/14/19 02:00 84 26 119/45 (69) 100 02/14/19 01:00 78 26 129/48 (75) 99 02/14/19 00:31 79 26 50 02/14/19 00:00 86 02/14/19 00:00 50 02/14/19 00:00 98.3 82 26 149/65 (93) 97 8/8/19 00:00 Mechanical Ventilator 02/13/19 23:00 84 26 129/48 (75) 99 02/13/19 22:38 82 26 50 02/13/19 22:00 87 26 104/44 (64) 96 02/13/19 21:00 88 26 114/44 (67) 99 02/13/19 20:41 80 33 50 02/13/19 20:39 80 155/61 02/13/19 20:00 Mechanical Ventilator 02/13/19 20:00 76 02/13/19 20:00 50 02/13/19 20:00 98.5 76 26 155/67 (96) 99 02/13/19 19:00 73 26 146/62 (90) 99 02/13/19 18:55 81 29 50 02/13/19 18:00 71 26 148/63 (91) 99 02/13/19 17:30 71 26 119/58 (78) 92 02/13/19 17:11 73 26 50 02/13/19 17:00 81 26 125/77 (93) 91 02/13/19 16:00 98.4 71 20 119/69 (86) 98 02/13/19 16:00 50 02/13/19 16:00 71 02/13/19 16:00 Mechanical Ventilator Intake and Output 02/13/19 02/14/19 19:00 07:00 Intake Total 895 ml 655 ml Output Total 460 ml 360 ml Balance 435 ml 295 ml Free Water 60 ml 240 ml IV Total 55 ml Tube Feeding 280 ml 415 ml Hemodialysis 500 ml Output Urine Total 460 ml 360 ml # Bowel Movements 4 Laboratory Tests 02/14/19 11:20: Arterial Blood pH 7.393, Arterial Blood Partial Pressure CO2 33.2L, Arterial Blood Partial Pressure O2 99.9, Arterial Blood HCO3 19.8L, Arterial Blood Oxygen Saturation 96.6, Arterial Blood Base Excess -4.4L, Trevor Test Positive Height (Feet): 5 Height (Inches): 3.00 Weight (Pounds): 118 Objective On vent. Arousable. CV RR Lungs CTA Abd SNT. BS + E No CCE. B BKS stumps clean. Nery Quezada MD Feb 14, 2019 15:18
--- NOTE | 2019-02-14 16:00 | NUR ---
NURSE NOTES: Patient blood pressure 111/38, HR 69, SpO2 97% on 3L NC. Patient previously on 50% cool aerosol mask but he refused to leave it on. Patient placed on 3L NC. Dr Noriega ordered for the patient to be titrated to keep oxygen saturation above 92%. Patient denies pain or acute distress at this time. Bedside swallow evaluation done by RN. Patient has no history of CVA and was able to swallow thin liquid and thick liquid without coughing or pain. Patient able to chew and swallow ice chips. Patient given jello and was able to eat it unassisted with no sign of acute distress or pain. Dr Quezada ordered in person verbally for patient to be started on CCHO medium/renal clear liquid diet and ordered for swallow evaluation tomorrow. Orders read back and orders placed. Patient right femoral Nba catheter patent and asymptomatic at this time. Dressing changed earlier today. Dressing intact and clean. Patient suprapubic clean and dry with dressing intact. Dressing changed earlier. Patient oral care done and patient repositioned at this time.
--- NOTE | 2019-02-14 16:17 | Surgery Progress Note ---
Surgery Progress Note Subjective Procedure Performed right femoral temporary hemodialysis catheter insertion Additional Comments extubated looking better today labs noted exam stable bioethics input noted once more relaxed will discuss permacath consent Objective Last 24 Hour Vital Signs Date Time Temp Pulse Resp B/P (MAP) Pulse Ox O2 Delivery O2 Flow Rate FiO2 02/14/19 12:45 Venturi Mask 12.0 50 02/14/19 12:00 Mechanical Ventilator 02/14/19 12:00 72 02/14/19 11:20 78 26 50 02/14/19 11:00 98 02/14/19 10:00 80 29 131/52 (78) 100 02/14/19 09:40 79 22 50 02/14/19 09:35 80 28 50 02/14/19 09:15 81 128/107 02/14/19 09:00 84 24 128/107 (114) 100 02/14/19 08:00 50 02/14/19 08:00 98.2 78 26 126/50 (75) 100 02/14/19 08:00 81 02/14/19 08:00 Mechanical Ventilator 02/14/19 07:30 80 28 50 02/14/19 07:00 83 22 120/83 (95) 98 02/14/19 06:00 84 21 147/63 (91) 97 02/14/19 05:10 80 27 50 02/14/19 05:00 81 22 133/52 (79) 100 02/14/19 04:00 79 02/14/19 04:00 98.6 80 24 136/58 (84) 99 02/14/19 04:00 Mechanical Ventilator 02/14/19 04:00 50 02/14/19 03:02 81 26 50 02/14/19 03:00 79 26 149/56 (87) 100 02/14/19 02:00 84 26 119/45 (69) 100 02/14/19 01:00 78 26 129/48 (75) 99 02/14/19 00:31 79 26 50 02/14/19 00:00 86 02/14/19 00:00 50 02/14/19 00:00 98.3 82 26 149/65 (93) 97 02/14/19 00:00 Mechanical Ventilator 02/13/19 23:00 84 26 129/48 (75) 99 02/13/19 22:38 82 26 50 02/13/19 22:00 87 26 104/44 (64) 96 02/13/19 21:00 88 26 114/44 (67) 99 02/13/19 20:41 80 33 50 02/13/19 20:39 80 155/61 02/13/19 20:00 Mechanical Ventilator 02/13/19 20:00 76 02/13/19 20:00 50 02/13/19 20:00 98.5 76 26 155/67 (96) 99 02/13/19 19:00 73 26 146/62 (90) 99 02/13/19 18:55 81 29 50 02/13/19 18:00 71 26 148/63 (91) 99 02/13/19 17:30 71 26 119/58 (78) 92 02/13/19 17:11 73 26 50 02/13/19 17:00 81 26 125/77 (93) 91 I&O Intake and Output 02/13/19 02/14/19 19:00 07:00 Intake Total 895 ml 655 ml Output Total 460 ml 360 ml Balance 435 ml 295 ml Free Water 60 ml 240 ml IV Total 55 ml Tube Feeding 280 ml 415 ml Hemodialysis 500 ml Output Urine Total 460 ml 360 ml # Bowel Movements 4 Dressing: dry Wound: dry Cardiovascular: RSR Respiratory: clear Abdomen: soft, flat, non-tender, present bowel sounds Extremities: other Laboratory Tests Test 02/14/19 11:20 Arterial Blood pH 7.393 (7.350-7.450) Arterial Blood Partial Pressure CO2 33.2 mmHg (35.0-45.0) L Arterial Blood Partial Pressure O2 99.9 mmHg (75.0-100.0) Arterial Blood HCO3 19.8 mmol/L (22.0-26.0) L Arterial Blood Oxygen Saturation 96.6 % (95-100) Arterial Blood Base Excess -4.4 (-2-2) L Trevor Test Positive Plan Problems: (1) ARDS (adult respiratory distress syndrome) (2) Anemia (3) Elevated troponin (4) MARY (acute kidney injury) (5) COPD with exacerbation (6) Abnormal LFTs Assessment & Plan: Abnormalities likely from shock liver. Gallbladder wall thickening nonspecific. Sonographic Rojas's is equivocal due to patient's condition. Trace ascites Bilateral pleural effusions. Suspected medical renal disease. Suspected nonobstructive stone in the right kidney. Trend labs Leukocytosis trending down Anemia LFTs normal now Improving (7) COPD (chronic obstructive pulmonary disease) (8) Respiratory distress (9) Pneumonia (10) HTN (hypertension) (11) Epileptic seizure, generalized (12) Shock liver Assessment & Plan: Shock liver likely from hypotension and cardiovascular arrest. Resuscitation with IV fluids ICU care and management Trend labs overall improving We will follow with recommendations (13) Suprapubic catheter Hari Batres Feb 14, 2019 16:17
--- NOTE | 2019-02-14 17:29 | NUR ---
HAND-OFF: Report given to YU Jean Baptiste. Patient sitting in bed with no sign of acute distress on 3L NC. Patient eating jello at this time. Patient showing no sign of aspiration or distress. Patient has order for dialysis tomorrow. [facility] has been notified. Awaiting call back from dialysis nurse. Endorsed to follow up.
--- NOTE | 2019-02-14 17:30 | Hematology/Onc Progress Note ---
Assessment/Plan Assessment/Plan Assessment and Recs: # Anemia of chronic disease due to underlying chronic medical issues, multifactorial --> Anemia workup has been ordered, rule out gi bleed --> No evidence of hemolysis is noted, peripheral smear has been reviewed. --> Hgb goal >7. Transfuse prn. --> Epogen and iron both started given ckd, ferritin only 274 (needs to be >500 for esrd pts) --> Medications have been reviewed --> low threshold for gi evaluation in case has occult + --> hgb trend 9.9-->9.4-->9.1-->9->9.4 # Leukocytosis/elevated white blood cell count, unspecified likely related to underlying stress reaction, pna, ARDS --> have reviewed peripheral smear and bandemia/neutrophilia noted --> continue antibiotics if they have been started by ID team --> 23-->17-->20k-->18k-->12-->11 # Thrombocytopenia - potential causes multifactorial, evaluate liver and viral etiologies to begin, also could be related to underlying medications patient has received. may be due to Hep C++ (need to confirm) --> Hep panel and HIV is negative --> US abd shows e/o trace ascites --> Peripheral smear ordered to evaluate for blasts /schistocytes is neg --> abx and other meds have been reviewed --> ok for ppx if plt >50k w/ either heparin or lovenox # Respiratory distress with ards --> has been intubated, on a vent --> as per pulm recs -> EXTUBATED NOW # Chronic Obstructive Pulmonary Disease with exacerbation --> breathing treatments on prn basis # Pneumonia --> on abx per id # ESRD - STARTED HD via femoral Junior. ++ PermaCath + AVF. --> hd per renal --> hd on 02/11 # Elevated troponin can be renal related --> per cards, r/o acs # Bilateral amputations # GERD # ETOH abuse The timing of this note does not necessarily reflect the time of the patient was seen. Greatly appreciate consultation! Subjective Constitutional: Denies: no symptoms, chills, fever, malaise, weakness, other HEENT: Denies: no symptoms, eye pain, blurred vision, tearing, double vision, ear pain, ear discharge, nose pain, nose congestion, throat pain, throat swelling, mouth pain, mouth swelling, other Cardiovascular: Denies: no symptoms, chest pain, edema, irregular heart rate, lightheadedness, palpitations, syncope, other Respiratory: Denies: no symptoms, cough, shortness of breath, SOB with excertion, SOB at rest, sputum, wheezing, other Gastrointestinal/Abdominal: Denies: no symptoms, abdomen distended, abdominal pain, black stools, tarry stools, blood in stool, constipated, diarrhea, difficulty swallowing, nausea, poor appetite, poor fluid intake, rectal bleeding , vomiting, other Genitourinary: Denies: no symptoms, burning, discharge, frequency, flank pain, hematuria, incontinence, pain, urgency, other Neurologic/Psychiatric: Denies: no symptoms, anxiety, depressed, emotional problems, headache, numbness, paresthesia, pre-existing deficit, seizure, tingling, tremors, weakness, other Allergies: Coded Allergies: No Known Allergies (Unverified , 09/25/17) Subjective 02/08: is on jose and vanc, broad spectrum abx, no f/c, vent adjusted per pulm 02/10: given k, remains on vent, in icu, vent weaning pending 02/11: no events noted, no f/c, remains in icu, is on vent 02/12: no events, labs reviewed, permacath for tomorrow, intub 02/13: permacath procedure pending, currently on hold, to get bioethics consult 02/14: extubated, looking better, no f/c, needing permacath Objective Objective Current Medications Medications (Trade) Dose Ordered Sig/Joe Route PRN Reason Start Time Stop Time Status Last Admin Dose Admin Acetaminophen (Tylenol) 650 mg Q4H PRN GT Mild Pain/Temp > 100.5 02/11/19 15:34 03/13/19 15:33 02/14/19 09:15 Al Hydroxide/Mg Hydroxide (Mylanta) 30 ml PRN ORAL 02/06/19 05:45 03/08/19 05:44 Carvedilol (Coreg) 3.125 mg EVERY 12 HOURS NG 02/12/19 09:00 03/14/19 08:59 02/14/19 09:15 Chlorhexidine Gluconate (Falguni-Hex 2%) 1 applic DAILY@2000 TOPIC 02/06/19 20:00 03/08/19 19:59 02/13/19 20:39 Dextrose (Dextrose 50%) 25 ml Q30M PRN IV Hypoglycemia 02/06/19 11:30 03/08/19 11:29 Dextrose (Dextrose 50%) 50 ml Q30M PRN IV Hypoglycemia 02/06/19 11:30 03/08/19 11:29 Epoetin Mayo (Epoetin Mayo(ESRD on dialysis)) 10,000 unit MON-MON-MON SUBQ 02/06/19 21:00 03/08/19 20:59 02/13/19 20:39 Heparin Sodium (Porcine) (Heparin 5000 units/ml) 5,000 units EVERY 12 HOURS SUBQ 02/06/19 09:00 03/08/19 08:59 02/13/19 20:40 Heparin Sodium (Porcine) (Heparin Sod 1000 units/ml 10ml) 500 unit ONCE PRN IV FOR HD USE 02/15/19 07:00 02/15/19 23:59 Heparin Sodium (Porcine) (Heparin Sod 1000 units/ml 10ml) 2,000 unit ONCE PRN IV FOR HD USE 02/15/19 07:00 02/15/19 23:59 Insulin Aspart (NovoLOG) Q6HR SUBQ 02/06/19 12:00 03/08/19 11:59 02/14/19 12:19 Lansoprazole (Prevacid) 30 mg DAILY NG 02/06/19 09:00 03/08/19 08:59 02/14/19 09:15 Lorazepam (Ativan 2mg/ml 1ml) 0.5 mg Q2H PRN IV For Anxiety 02/09/19 22:15 02/16/19 22:14 02/13/19 08:33 Meropenem 500 mg/ Sodium Chloride 55 ml @ 110 mls/hr DAILY IVPB 02/06/19 13:00 02/19/19 23:00 02/14/19 09:14 Metoclopramide HCl (Reglan) 5 mg Q6H PRN IVP Nausea & Vomiting 02/13/19 20:15 03/15/19 20:14 02/13/19 20:48 Morphine Sulfate (Morphine Sulfate) 2 mg Q2H PRN IVP For Pain 02/09/19 23:45 02/16/19 23:44 02/13/19 08:32 Sodium Chloride 1,000 ml @ 500 mls/hr Q2H PRN IVLG sbp<90 during hd 02/15/19 07:00 02/15/19 23:59 Last 24 Hour Vital Signs Date Time Temp Pulse Resp B/P (MAP) Pulse Ox O2 Delivery O2 Flow Rate FiO2 02/14/19 12:45 Venturi Mask 12.0 50 02/14/19 12:00 Mechanical Ventilator 02/14/19 12:00 72 02/14/19 11:20 78 26 50 02/14/19 11:00 98 02/14/19 10:00 80 29 131/52 (78) 100 02/14/19 09:40 79 22 50 02/14/19 09:35 80 28 50 02/14/19 09:15 81 128/107 02/14/19 09:00 84 24 128/107 (114) 100 02/14/19 08:00 50 02/14/19 08:00 98.2 78 26 126/50 (75) 100 02/14/19 08:00 81 02/14/19 08:00 Mechanical Ventilator 02/14/19 07:30 80 28 50 02/14/19 07:00 83 22 120/83 (95) 98 02/14/19 06:00 84 21 147/63 (91) 97 02/14/19 05:10 80 27 50 02/14/19 05:00 81 22 133/52 (79) 100 02/14/19 04:00 79 02/14/19 04:00 98.6 80 24 136/58 (84) 99 02/14/19 04:00 Mechanical Ventilator 02/14/19 04:00 50 02/14/19 03:02 81 26 50 02/14/19 03:00 79 26 149/56 (87) 100 02/14/19 02:00 84 26 119/45 (69) 100 02/14/19 01:00 78 26 129/48 (75) 99 02/14/19 00:31 79 26 50 02/14/19 00:00 86 02/14/19 00:00 50 02/14/19 00:00 98.3 82 26 149/65 (93) 97 02/14/19 00:00 Mechanical Ventilator 02/13/19 23:00 84 26 129/48 (75) 99 02/13/19 22:38 82 26 50 02/13/19 22:00 87 26 104/44 (64) 96 02/13/19 21:00 88 26 114/44 (67) 99 02/13/19 20:41 80 33 50 02/13/19 20:39 80 155/61 02/13/19 20:00 Mechanical Ventilator 02/13/19 20:00 76 02/13/19 20:00 50 02/13/19 20:00 98.5 76 26 155/67 (96) 99 02/13/19 19:00 73 26 146/62 (90) 99 02/13/19 18:55 81 29 50 02/13/19 18:00 71 26 148/63 (91) 99 02/13/19 17:30 71 26 119/58 (78) 92 02/13/19 17:11 73 26 50 02/13/19 17:00 81 26 125/77 (93) 91 02/13/19 16:00 98.4 71 20 119/69 (86) 98 02/13/19 16:00 50 02/13/19 16:00 71 02/13/19 16:00 Mechanical Ventilator 02/13/19 15:00 72 20 125/54 (77) 98 02/13/19 14:43 73 20 50 02/13/19 14:00 71 20 116/49 (71) 98 02/13/19 13:00 73 20 120/55 (76) 98 02/13/19 12:52 71 20 50 02/13/19 12:21 50 02/13/19 12:00 78 02/13/19 12:00 Mechanical Ventilator 02/13/19 12:00 98.4 72 20 116/54 (74) 98 02/13/19 12:00 45 02/13/19 11:00 73 21 114/50 (71) 96 02/13/19 10:52 77 25 45 02/13/19 10:00 79 26 109/43 (65) 98 02/13/19 09:02 98.4 02/13/19 09:00 96 02/13/19 09:00 78 23 45 02/13/19 09:00 75 26 139/59 (85) 98 02/13/19 08:33 75 146/54 8/7/19 08:00 75 26 146/54 (84) 02/13/19 08:00 Mechanical Ventilator 02/13/19 08:00 75 02/13/19 07:22 77 26 45 02/13/19 07:00 98.0 75 26 137/60 (85) 96 02/13/19 06:00 75 25 137/54 (81) 98 02/13/19 06:00 45 02/13/19 05:12 78 26 45 02/13/19 05:00 76 25 118/60 (79) 98 02/13/19 05:00 Mechanical Ventilator 02/13/19 04:00 98.2 72 26 120/54 (76) 98 02/13/19 04:00 45 02/13/19 04:00 76 02/13/19 03:24 74 26 45 02/13/19 03:00 73 26 130/54 (79) 98 02/13/19 02:00 75 26 118/52 (74) 96 02/13/19 01:00 73 26 120/50 (73) 96 02/13/19 00:58 75 26 45 02/13/19 00:00 75 02/13/19 00:00 98.0 75 26 124/50 (74) 96 02/13/19 00:00 45 02/13/19 00:00 Mechanical Ventilator 02/12/19 23:04 78 26 45 02/12/19 23:00 77 26 139/58 (85) 93 02/12/19 22:00 78 26 142/58 (86) 93 02/12/19 21:00 76 26 143/59 (87) 100 02/12/19 20:47 78 26 45 02/12/19 20:38 76 138/57 02/12/19 20:30 45 02/12/19 20:00 Mechanical Ventilator 02/12/19 20:00 98.4 76 26 138/57 (84) 100 02/12/19 20:00 78 02/12/19 18:57 83 26 45 02/12/19 18:00 86 26 93/62 (72) 100 Intake and Output 02/13/19 02/14/19 19:00 07:00 Intake Total 895 ml 655 ml Output Total 460 ml 360 ml Balance 435 ml 295 ml Free Water 60 ml 240 ml IV Total 55 ml Tube Feeding 280 ml 415 ml Hemodialysis 500 ml Output Urine Total 460 ml 360 ml # Bowel Movements 4 Labs Test 02/12/19 04:00 02/12/19 11:00 02/13/19 08:50 02/13/19 12:00 Stool Occult Blood Negative (NEGATIVE) White Blood Count 11.0 K/UL (4.8-10.8) 10.9 K/UL (4.8-10.8) Red Blood Count 3.28 M/UL (4.70-6.10) 3.20 M/UL (4.70-6.10) Hemoglobin 9.6 G/DL (14.2-18.0) 9.4 G/DL (14.2-18.0) Hematocrit 30.1 % (42.0-52.0) 30.0 % (42.0-52.0) Mean Corpuscular Volume 92 FL (80-99) 94 FL (80-99) Mean Corpuscular Hemoglobin 29.2 PG (27.0-31.0) 29.4 PG (27.0-31.0) Mean Corpuscular Hemoglobin Concent 31.8 G/DL (32.0-36.0) 31.3 G/DL (32.0-36.0) Red Cell Distribution Width 20.5 % (11.6-14.8) 19.5 % (11.6-14.8) Platelet Count 97 K/UL (150-450) 106 K/UL (150-450) Mean Platelet Volume 8.3 FL (6.5-10.1) 10.2 FL (6.5-10.1) Neutrophils (%) (Auto) % (45.0-75.0) 71.9 % (45.0-75.0) Lymphocytes (%) (Auto) % (20.0-45.0) 16.8 % (20.0-45.0) Monocytes (%) (Auto) % (1.0-10.0) 6.8 % (1.0-10.0) Eosinophils (%) (Auto) % (0.0-3.0) 3.8 % (0.0-3.0) Basophils (%) (Auto) % (0.0-2.0) 0.7 % (0.0-2.0) Differential Total Cells Counted 100 Neutrophils % (Manual) 71 % (45-75) Lymphocytes % (Manual) 19 % (20-45) Monocytes % (Manual) 3 % (1-10) Eosinophils % (Manual) 4 % (0-3) Basophils % (Manual) 3 % (0-2) Band Neutrophils 0 % (0-8) Platelet Estimate Decreased Platelet Morphology Normal Hypochromasia 2+ Anisocytosis 2+ Sodium Level 147 MMOL/L (136-145) 148 MMOL/L (136-145) Potassium Level 3.6 MMOL/L (3.5-5.1) 3.2 MMOL/L (3.5-5.1) Chloride Level 111 MMOL/L (98-107) 112 MMOL/L (98-107) Carbon Dioxide Level 24 MMOL/L (21-32) 22 MMOL/L (21-32) Anion Gap 12 mmol/L (5-15) 14 mmol/L (5-15) Blood Urea Nitrogen 46 mg/dL (7-18) 51 mg/dL (7-18) Creatinine 5.1 MG/DL (0.55-1.30) 5.6 MG/DL (0.55-1.30) Estimat Glomerular Filtration Rate 11.4 mL/min (>60) 10.2 mL/min (>60) Glucose Level 152 MG/DL (74-106) 108 MG/DL (74-106) Calcium Level 7.2 MG/DL (8.5-10.1) 7.4 MG/DL (8.5-10.1) Total Bilirubin 0.7 MG/DL (0.2-1.0) Aspartate Amino Transf (AST/SGOT) 19 U/L (15-37) Alanine Aminotransferase (ALT/SGPT) 28 U/L (12-78) Alkaline Phosphatase 95 U/L (46-116) Total Protein 6.2 G/DL (6.4-8.2) Albumin 2.1 G/DL (3.4-5.0) Globulin 4.1 g/dL Albumin/Globulin Ratio 0.5 (1.0-2.7) Arterial Blood pH 7.385 (7.350-7.450) Arterial Blood Partial Pressure CO2 38.9 mmHg (35.0-45.0) Arterial Blood Partial Pressure O2 60.1 mmHg (75.0-100.0) Arterial Blood HCO3 22.8 mmol/L (22.0-26.0) Arterial Blood Oxygen Saturation 88.7 % (95-100) Arterial Blood Base Excess -2.0 (-2-2) Trevor Test Positive Test 02/14/19 11:20 Arterial Blood pH 7.393 (7.350-7.450) Arterial Blood Partial Pressure CO2 33.2 mmHg (35.0-45.0) Arterial Blood Partial Pressure O2 99.9 mmHg (75.0-100.0) Arterial Blood HCO3 19.8 mmol/L (22.0-26.0) Arterial Blood Oxygen Saturation 96.6 % (95-100) Arterial Blood Base Excess -4.4 (-2-2) Trevor Test Positive Height (Feet): 5 Height (Inches): 3.00 Weight (Pounds): 118 Objective PE Gen: fatigued, on mechanical ventilator Eyes: bilateral eye PERRL, b/l eye EOMI Respiratory: Bilateral wheezing, rhonchi now off vent since 02/13 Cardiovascular: normal heart sound, normal peripheral pulses, rrr GI: non tender, soft, no guarding, no rebound ++ peg Msk normal inspection Neuro: sedated, no focal signs Skin: no rash, warm/dry Nicho Rebolledo MD Feb 14, 2019 17:30
--- NOTE | 2019-02-14 17:30 | NUR ---
NURSE NOTES: Received report from YU Valentine. Patient is alert and oriented x4. Able to follow command and able to make needs known. S/P extubation and on O2 3L/min via N/C. No acute distress/SOB noted. Patient denies any pain/discomfort at this time. Will continue plan of care.
[2019-02-14 18:47] LABS: HEMATOCRIT 27.3 % (42.0-52.0); HEMOGLOBIN 8.7 G/DL (14.2-18.0); MEAN CORPUSCULAR VOLUME 93 FL (80-99); PLATELET COUNT 92 K/UL (150-450); RED BLOOD COUNT 2.94 M/UL (4.70-6.10); WHITE BLOOD COUNT 8.2 K/UL (4.8-10.8)
--- NOTE | 2019-02-14 19:20 | NUR ---
HAND-OFF: Report given to YU Arita. Endorsed plan of care.
--- NOTE | 2019-02-14 19:30 | NUR ---
NURSE NOTES:Received pt just newly extubated, on 02 at 2L at this time, o2 sat >94%, HOB kepy elevated. watch for any resp distress, SR on the monitor Bp stable afebrile. Pt also has RT arm contracted, elevated with a [pillow. suprapubic to gravitil draining 40-50 Ml urine, Watch for any respiratory distress, RT dillan cath, with pig tail with drsg dry and intact. apt has no skin breakdown. Will continue to monitor.
[2019-02-14] MEDS: Dyna-Hex 2% Top Sol 2oz TOPIC SCH (20:25)
--- NOTE | 2019-02-14 21:30 | NUR ---
NURSE NOTES:Accucheck 90- no coverage, HS snack provided.
--- NOTE | 2019-02-14 23:08 | General Progress Note ---
Assessment/Plan Status: unchanged Assessment/Plan: Assessment - TF intolerance, resolved - Resp failure - extubated - renal failures - anemia Recommendations Continue current meds Reglan ATC.for now Elevate HOB swallow evaluation Subjective Allergies: Coded Allergies: No Known Allergies (Unverified , 09/25/17) Subjective above noted seen earlier today subsequently extubated Objective Last 24 Hour Vital Signs Date Time Temp Pulse Resp B/P (MAP) Pulse Ox O2 Delivery O2 Flow Rate FiO2 02/14/19 22:00 75 22 124/51 (75) 94 02/14/19 21:07 71 121/46 02/14/19 21:00 72 22 117/47 (70) 94 02/14/19 20:00 97.6 72 22 111/25 (53) 95 02/14/19 19:00 70 22 104/45 (64) 97 02/14/19 18:00 70 21 96/30 (52) 93 02/14/19 17:35 97 Nasal Cannula 2.0 28 02/14/19 17:00 69 23 114/46 (68) 96 02/14/19 16:00 71 02/14/19 16:00 97.4 70 24 115/43 (67) 97 02/14/19 16:00 3.0 02/14/19 16:00 Nasal Cannula 3.0 02/14/19 15:00 68 21 118/47 (70) 100 02/14/19 14:00 67 25 102/45 (64) 97 02/14/19 13:00 80 21 107/30 (55) 02/14/19 12:45 50 02/14/19 12:45 Venturi Mask 12.0 50 02/14/19 12:30 78 26 115/45 (68) 02/14/19 12:00 Mechanical Ventilator 02/14/19 12:00 97.6 78 24 125/49 (74) 100 02/14/19 12:00 72 02/14/19 12:00 50 02/14/19 11:20 78 26 50 02/14/19 11:00 98 02/14/19 11:00 79 22 127/59 (81) 100 02/14/19 10:00 80 29 131/52 (78) 100 02/14/19 09:40 79 22 50 02/14/19 09:35 80 28 50 8/8/19 09:15 81 128/107 8/8/19 09:00 84 24 128/107 (114) 100 02/14/19 08:00 50 02/14/19 08:00 98.2 78 26 126/50 (75) 100 02/14/19 08:00 81 02/14/19 08:00 Mechanical Ventilator 02/14/19 07:30 80 28 50 02/14/19 07:00 83 22 120/83 (95) 98 02/14/19 06:00 84 21 147/63 (91) 97 02/14/19 05:10 80 27 50 02/14/19 05:00 81 22 133/52 (79) 100 02/14/19 04:00 79 02/14/19 04:00 98.6 80 24 136/58 (84) 99 02/14/19 04:00 Mechanical Ventilator 02/14/19 04:00 50 02/14/19 03:02 81 26 50 02/14/19 03:00 79 26 149/56 (87) 100 02/14/19 02:00 84 26 119/45 (69) 100 02/14/19 01:00 78 26 129/48 (75) 99 02/14/19 00:31 79 26 50 02/14/19 00:00 86 02/14/19 00:00 50 02/14/19 00:00 98.3 82 26 149/65 (93) 97 02/14/19 00:00 Mechanical Ventilator Intake and Output 02/13/19 02/14/19 19:00 07:00 Intake Total 895 ml 655 ml Output Total 460 ml 360 ml Balance 435 ml 295 ml Free Water 60 ml 240 ml IV Total 55 ml Tube Feeding 280 ml 415 ml Hemodialysis 500 ml Output Urine Total 460 ml 360 ml # Bowel Movements 4 Laboratory Tests 02/14/19 11:20: Arterial Blood pH 7.393, Arterial Blood Partial Pressure CO2 33.2L, Arterial Blood Partial Pressure O2 99.9, Arterial Blood HCO3 19.8L, Arterial Blood Oxygen Saturation 96.6, Arterial Blood Base Excess -4.4L, Trevor Test Positive 02/14/19 17:55: White Blood Count 8.2, Red Blood Count 2.94L, Hemoglobin 8.7L, Hematocrit 27.3L , Mean Corpuscular Volume 93, Mean Corpuscular Hemoglobin 29.6, Mean Corpuscular Hemoglobin Concent 31.9L, Red Cell Distribution Width 18.0H, Platelet Count 92L, Mean Platelet Volume 9.2, Neutrophils (%) (Auto) , Lymphocytes (%) (Auto) , Monocytes (%) (Auto) , Eosinophils (%) (Auto) , Basophils (%) (Auto) , Differential Total Cells Counted 100, Neutrophils % ( Manual) 78H, Lymphocytes % (Manual) 10L, Monocytes % (Manual) 5, Eosinophils % ( Manual) 6H, Basophils % (Manual) 1, Band Neutrophils 0, Platelet Estimate DecreasedL, Platelet Morphology Normal, Hypochromasia 2+, Anisocytosis 2+ Height (Feet): 5 Height (Inches): 3.00 Weight (Pounds): 118 Objective Debilitated man NCAT supple CTA RRR abd soft ND ext:(+) amputations Elroy Wetzel MD Feb 14, 2019 23:08
--- NOTE | 2019-02-14 23:30 | NUR ---
NURSE NOTES:Complete bath with partial bed changed done.
[2019-02-15] VITALS (27 sets, daily range): BP systolic 81–162; BP diastolic 32–83
--- NOTE | 2019-02-15 02:16 | NUR ---
NURSE NOTES Still awake at this time, instructed to get some rest.
--- NOTE | 2019-02-15 03:00 | NUR ---
NURSE NOTES: Dozing on and off , pt desat without 02. Instructed not to remove 02. verbalized understanding.
--- NOTE | 2019-02-15 04:15 | Progress Note ---
DATE: 02/14/2019 CARDIOLOGY PROGRESS NOTE SUBJECTIVE: The patient was to have a PermCath placed for continued dialysis in the setting of end-stage renal disease. He is status post full arrest. He has been extubated. OBJECTIVE: VITAL SIGNS: Blood pressure 124/51, pulse 75, and respirations 22. Monitored rhythm, sinus with atrial and ventricular ectopy nonsustained. LUNGS: Bilateral breath sounds. Few rhonchi. HEART: Regular rhythm and rate. Normal S1, S2. ABDOMEN: Soft. EXTREMITIES: No edema. LABORATORY DATA: White count 8.2 and hemoglobin 8.7. ABG, pH 7.39, pCO2 33, and pO2 100. No chemistry panel today. IMPRESSION: 1. Status post full arrest. 2. Non ST-elevation myocardial infarction. 3. Respiratory failure status post extubation. 4. End-stage renal disease. 5. Dehydration. 6. Hypernatremia. 7. Hypokalemia. 8. Hyperchloremia. 9. Severe protein-calorie malnutrition. 10. Paroxysmal atrial and ventricular ectopy. 11. Sepsis with recovered shock. PLAN: 1. Await PermCath and remove right femoral Mahurkar. 2. Hemodialysis with ultrafiltration. 3. DVT and stress ulcer prophylaxis. 4. Antimicrobials. 5. Respiratory hygiene. 6. Titrate beta-artis. 7. Maintain anti-platelet therapy. Jamari Gale M.D. DR: ENDY JOB#: [id number] CC:
--- NOTE | 2019-02-15 05:00 | NUR ---
NURSE NOTES:Asleep at this time with vss.
[2019-02-15] MEDS: NovoLOG Insulin Flexpen SUBQ SCH ×4 (06:30→21:01)
[2019-02-15] MEDS ORDERED: Heparin Sod 1000 units/ml 10ml IV PRN ×4 (07:00→20:45)
--- NOTE | 2019-02-15 07:00 | NUR ---
NURSE NOTES:No resp. distress noted . VSS. Pt desat. without 02.
--- NOTE | 2019-02-15 07:04 | NUR ---
NURSE NOTES: Received report from [facility] Arita. Patient is watching TV, alert and oriented x4. No acute distress/SOB noted with O2 3L/min via NC. Patient denies any pain/discomfort. Right femoral dillan cath intact and clean. Will continue plan of care.
--- NOTE | 2019-02-15 07:24 | NUR ---
HAND-OFF: Report given to Kwabena NICHOLAS.
[2019-02-15] MEDS: Meropenem 500 MG in NS 55 ML IVPB SCH (08:26)
--- NOTE | 2019-02-15 08:30 | NUR ---
NURSE NOTES: Patient had BM. Bed bath given.
[2019-02-15] MEDS: Heparin 5000 units/ml inj SUBQ SCH (08:35)
--- NOTE | 2019-02-15 08:35 | Nephrology Progress Note ---
Assessment/Plan Plan ESRD - STARTED HD via femoral Junior. Needs PermaCath + AVF. PermaCath ordered since admission but not done!!! Patient @ tremendous high risk for line sepsis. DW Radilogy multiple times. Patient even signed a Consent yesterday! Sepsis - per ID. Accepted @ [facility] [place] for outpatient HD. HD q MWF Subjective Subjective Extubated. Confused. Denies c/o. Objective Objective Last 24 Hour Vital Signs Date Time Temp Pulse Resp B/P (MAP) Pulse Ox O2 Delivery O2 Flow Rate FiO2 02/15/19 08:26 80 121/52 02/15/19 07:00 80 22 109/37 (61) 95 02/15/19 06:30 97 Nasal Cannula 2.0 28 02/15/19 06:00 78 22 115/44 (67) 95 02/15/19 05:00 74 22 114/40 (64) 95 02/15/19 04:00 97.8 74 22 118/54 (75) 94 02/15/19 04:00 Nasal Cannula 3.0 02/15/19 04:00 74 02/15/19 03:00 75 22 128/44 (72) 94 02/15/19 02:00 75 1 123/56 (78) 94 02/15/19 01:00 72 1 111/49 (69) 94 02/15/19 00:00 82 02/15/19 00:00 50 02/15/19 00:00 Nasal Cannula 3.0 02/15/19 00:00 97.4 70 18 114/49 (70) 94 02/14/19 23:00 75 20 129/82 (98) 94 02/14/19 22:00 75 22 124/51 (75) 94 02/14/19 21:07 71 121/46 02/14/19 21:00 72 22 117/47 (70) 94 02/14/19 20:00 72 02/14/19 20:00 Nasal Cannula 3.0 02/14/19 20:00 50 02/14/19 20:00 97.6 72 22 111/25 (53) 95 02/14/19 19:00 70 22 104/45 (64) 97 02/14/19 18:00 70 21 96/30 (52) 93 02/14/19 17:35 97 Nasal Cannula 2.0 28 02/14/19 17:00 69 23 114/46 (68) 96 02/14/19 16:00 71 02/14/19 16:00 97.4 70 24 115/43 (67) 97 02/14/19 16:00 3.0 02/14/19 16:00 Nasal Cannula 3.0 02/14/19 15:00 68 21 118/47 (70) 100 02/14/19 14:00 67 25 102/45 (64) 97 02/14/19 13:00 80 21 107/30 (55) 02/14/19 12:45 50 02/14/19 12:45 Venturi Mask 12.0 50 02/14/19 12:30 78 26 115/45 (68) 02/14/19 12:00 Mechanical Ventilator 02/14/19 12:00 97.6 78 24 125/49 (74) 100 02/14/19 12:00 72 02/14/19 12:00 50 02/14/19 11:20 78 26 50 02/14/19 11:00 98 02/14/19 11:00 79 22 127/59 (81) 100 02/14/19 10:00 80 29 131/52 (78) 100 02/14/19 09:40 79 22 50 02/14/19 09:35 80 28 50 02/14/19 09:15 81 128/107 02/14/19 09:00 84 24 128/107 (114) 100 Intake and Output 02/14/19 02/15/19 19:00 07:00 Intake Total 435 ml 220 ml Output Total 300 ml 620 ml Balance 135 ml -400 ml Intake Oral 270 ml 220 ml Free Water 40 ml IV Total 55 ml Tube Feeding 70 ml Output Urine Total 300 ml 620 ml Stool Total 0 ml # Bowel Movements 2 Laboratory Tests 02/14/19 11:20: Arterial Blood pH 7.393, Arterial Blood Partial Pressure CO2 33.2L, Arterial Blood Partial Pressure O2 99.9, Arterial Blood HCO3 19.8L, Arterial Blood Oxygen Saturation 96.6, Arterial Blood Base Excess -4.4L, Trevor Test Positive 02/14/19 17:55: White Blood Count 8.2, Red Blood Count 2.94L, Hemoglobin 8.7L, Hematocrit 27.3L , Mean Corpuscular Volume 93, Mean Corpuscular Hemoglobin 29.6, Mean Corpuscular Hemoglobin Concent 31.9L, Red Cell Distribution Width 18.0H, Platelet Count 92L, Mean Platelet Volume 9.2, Neutrophils (%) (Auto) , Lymphocytes (%) (Auto) , Monocytes (%) (Auto) , Eosinophils (%) (Auto) , Basophils (%) (Auto) , Differential Total Cells Counted 100, Neutrophils % ( Manual) 78H, Lymphocytes % (Manual) 10L, Monocytes % (Manual) 5, Eosinophils % ( Manual) 6H, Basophils % (Manual) 1, Band Neutrophils 0, Platelet Estimate DecreasedL, Platelet Morphology Normal, Hypochromasia 2+, Anisocytosis 2+ Height (Feet): 5 Height (Inches): 3.00 Weight (Pounds): 110 Objective Alert. CV RR Lungs CTA Abd SNT. BS + E No CCE. B BKA stumps clean. Jenny Pacheco! Nery Quezada MD Feb 15, 2019 08:35
[2019-02-15] MEDS ORDERED: Heparin1,000 units/500ml Premix(Conc:2 units/ml) IV PRN ×2 (09:30→20:45)
[2019-02-15] MEDS ORDERED: Lidocaine 1% Plain 30 ml INJ PRN (09:30)
--- NOTE | 2019-02-15 09:40 | NUR ---
NURSE NOTES: Transferred to IR for tunneled dialysis catheter placement by hospital bed with YU Millan. Portable retort loader on. On O2 3L/min via NC. No acute distress/SOB noted.
--- NOTE | 2019-02-15 09:45 | Infectious Diseases Prog Note ---
Assessment/Plan Assessment/Plan A; Pneumonia treated Acute respiratory failure resolved DM with hyperglycemia CKD, acute renal failure, on HD Anemia Decreased albumin PAF Elevated troponin Diarrhea VRE carrier P; Discontinue Meropenem Observe off antibiotic Subjective ROS Limited/Unobtainable: Yes Constitutional: Reports: other - doing better Respiratory: Reports: other - extubated yesterday Gastrointestinal/Abdominal: Reports: no symptoms Genitourinary: Reports: no symptoms Allergies: Coded Allergies: No Known Allergies (Unverified , 09/25/17) Objective Vital Signs Last 24 Hour Vital Signs Date Time Temp Pulse Resp B/P (MAP) Pulse Ox O2 Delivery O2 Flow Rate FiO2 02/15/19 09:00 78 19 97/36 (56) 94 02/15/19 08:26 80 121/52 02/15/19 08:00 Nasal Cannula 3.0 02/15/19 08:00 98.5 83 20 121/51 (74) 97 02/15/19 07:00 80 22 109/37 (61) 95 02/15/19 06:30 97 Nasal Cannula 2.0 28 02/15/19 06:00 78 22 115/44 (67) 95 02/15/19 05:00 74 22 114/40 (64) 95 02/15/19 04:00 97.8 74 22 118/54 (75) 94 02/15/19 04:00 Nasal Cannula 3.0 02/15/19 04:00 74 02/15/19 03:00 75 22 128/44 (72) 94 02/15/19 02:00 75 1 123/56 (78) 94 02/15/19 01:00 72 1 111/49 (69) 94 02/15/19 00:00 82 02/15/19 00:00 50 02/15/19 00:00 Nasal Cannula 3.0 02/15/19 00:00 97.4 70 18 114/49 (70) 94 02/14/19 23:00 75 20 129/82 (98) 94 02/14/19 22:00 75 22 124/51 (75) 94 02/14/19 21:07 71 121/46 02/14/19 21:00 72 22 117/47 (70) 94 02/14/19 20:00 72 02/14/19 20:00 Nasal Cannula 3.0 02/14/19 20:00 50 02/14/19 20:00 97.6 72 22 111/25 (53) 95 02/14/19 19:00 70 22 104/45 (64) 97 02/14/19 18:00 70 21 96/30 (52) 93 02/14/19 17:35 97 Nasal Cannula 2.0 28 02/14/19 17:00 69 23 114/46 (68) 96 02/14/19 16:00 71 02/14/19 16:00 97.4 70 24 115/43 (67) 97 02/14/19 16:00 3.0 02/14/19 16:00 Nasal Cannula 3.0 02/14/19 15:00 68 21 118/47 (70) 100 02/14/19 14:00 67 25 102/45 (64) 97 02/14/19 13:00 80 21 107/30 (55) 02/14/19 12:45 50 02/14/19 12:45 Venturi Mask 12.0 50 02/14/19 12:30 78 26 115/45 (68) 02/14/19 12:00 Mechanical Ventilator 02/14/19 12:00 97.6 78 24 125/49 (74) 100 02/14/19 12:00 72 02/14/19 12:00 50 02/14/19 11:20 78 26 50 02/14/19 11:00 98 02/14/19 11:00 79 22 127/59 (81) 100 02/14/19 10:00 80 29 131/52 (78) 100 Height (Feet): 5 Height (Inches): 3.00 Weight (Pounds): 110 General Appearance: no acute distress HEENT: mucous membranes moist Respiratory/Chest: lungs clear, other - oxygen by nasal cannula Cardiovascular: normal rate, other - R femoral HD line Abdomen: soft, non tender Extremities: no edema, other - bilateral BKA Neurologic/Psychiatric: alert, responsive Laboratory Tests Test 02/14/19 11:20 02/14/19 17:55 Arterial Blood pH 7.393 (7.350-7.450) Arterial Blood Partial Pressure CO2 33.2 mmHg (35.0-45.0) L Arterial Blood Partial Pressure O2 99.9 mmHg (75.0-100.0) Arterial Blood HCO3 19.8 mmol/L (22.0-26.0) L Arterial Blood Oxygen Saturation 96.6 % (95-100) Arterial Blood Base Excess -4.4 (-2-2) L Trevor Test Positive White Blood Count 8.2 K/UL (4.8-10.8) Red Blood Count 2.94 M/UL (4.70-6.10) L Hemoglobin 8.7 G/DL (14.2-18.0) L Hematocrit 27.3 % (42.0-52.0) L Mean Corpuscular Volume 93 FL (80-99) Mean Corpuscular Hemoglobin 29.6 PG (27.0-31.0) Mean Corpuscular Hemoglobin Concent 31.9 G/DL (32.0-36.0) L Red Cell Distribution Width 18.0 % (11.6-14.8) H Platelet Count 92 K/UL (150-450) L Mean Platelet Volume 9.2 FL (6.5-10.1) Neutrophils (%) (Auto) % (45.0-75.0) Lymphocytes (%) (Auto) % (20.0-45.0) Monocytes (%) (Auto) % (1.0-10.0) Eosinophils (%) (Auto) % (0.0-3.0) Basophils (%) (Auto) % (0.0-2.0) Differential Total Cells Counted 100 Neutrophils % (Manual) 78 % (45-75) H Lymphocytes % (Manual) 10 % (20-45) L Monocytes % (Manual) 5 % (1-10) Eosinophils % (Manual) 6 % (0-3) H Basophils % (Manual) 1 % (0-2) Band Neutrophils 0 % (0-8) Platelet Estimate Decreased L Platelet Morphology Normal Hypochromasia 2+ Anisocytosis 2+ Current Medications Medications (Trade) Dose Ordered Sig/Joe Route PRN Reason Start Time Stop Time Status Last Admin Dose Admin Acetaminophen (Tylenol) 650 mg Q4H PRN GT Mild Pain/Temp > 100.5 02/11/19 15:34 03/13/19 15:33 02/14/19 09:15 Al Hydroxide/Mg Hydroxide (Mylanta) 30 ml PRN ORAL 02/06/19 05:45 03/08/19 05:44 Carvedilol (Coreg) 3.125 mg EVERY 12 HOURS NG 02/12/19 09:00 03/14/19 08:59 02/15/19 08:26 Chlorhexidine Gluconate (Falguni-Hex 2%) 1 applic DAILY@2000 TOPIC 02/06/19 20:00 03/08/19 19:59 02/14/19 20:25 Dextrose (Dextrose 50%) 25 ml Q30M PRN IV Hypoglycemia 02/06/19 11:30 03/08/19 11:29 Dextrose (Dextrose 50%) 50 ml Q30M PRN IV Hypoglycemia 02/06/19 11:30 03/08/19 11:29 Epoetin Mayo (Epoetin Mayo(ESRD on dialysis)) 10,000 unit MON-MON-MON SUBQ 02/06/19 21:00 03/08/19 20:59 02/13/19 20:39 Heparin Sodium (Porcine) (Heparin 5000 units/ml) 5,000 units EVERY 12 HOURS SUBQ 02/06/19 09:00 03/08/19 08:59 02/13/19 20:40 Heparin Sodium (Porcine) (Heparin Sod 1000 units/ml 10ml) 500 unit ONCE PRN IV FOR HD USE 02/15/19 07:00 02/15/19 23:59 Heparin Sodium (Porcine) (Heparin Sod 1000 units/ml 10ml) 2,000 unit ONCE PRN IV FOR HD USE 02/15/19 07:00 02/15/19 23:59 Heparin Sodium/ Sodium Chloride (Heparin 1000 units/500ml Premix) 1,000 unit ONCE PRN IV PERMACATH INSERTION 02/15/19 09:30 02/17/19 23:59 Insulin Aspart (NovoLOG) AC+HS SUBQ 02/14/19 21:00 03/08/19 11:59 Lansoprazole (Prevacid) 30 mg DAILY NG 02/06/19 09:00 03/08/19 08:59 02/15/19 08:26 Lidocaine/ Epinephrine (Lidocaine 2% 20mg/ml/EPI 0.01mg/ml 20ml) 10 ml ONCE ONCE INJ 02/15/19 10:30 02/15/19 10:31 Lorazepam (Ativan 2mg/ml 1ml) 0.5 mg Q2H PRN IV For Anxiety 02/09/19 22:15 02/16/19 22:14 02/13/19 08:33 Meropenem 500 mg/ Sodium Chloride 55 ml @ 110 mls/hr DAILY IVPB 02/06/19 13:00 02/19/19 23:00 02/15/19 08:26 Metoclopramide HCl (Reglan) 5 mg Q6H PRN IVP Nausea & Vomiting 02/13/19 20:15 03/15/19 20:14 02/13/19 20:48 Morphine Sulfate (Morphine Sulfate) 2 mg Q2H PRN IVP For Pain 02/09/19 23:45 02/16/19 23:44 02/13/19 08:32 Sodium Chloride 1,000 ml @ 500 mls/hr Q2H PRN IVLG sbp<90 during hd 02/15/19 07:00 02/15/19 23:59 Emir Madsen MD Feb 15, 2019 09:45
--- NOTE | 2019-02-15 10:27 | Pre-Procedure Note/Attestation ---
Pre-Procedure Note/Attestation Complete Prior to Procedure Procedure Narrative: permacath placement Indications for Procedure Pre-Operative Diagnosis: renal failure Attestation I attest that I discussed the nature of the procedure; its benefits; risks and complications; and alternatives (and the risks and benefits of such alternatives ), prior to the procedure, with the patient (or the patient's legal sales representative graphic art). I attest that I re-evaluated the patient just prior to the surgery and that there has been no change in the patient's H&P, except as documented below: Arnel Mcdonald M.D. Feb 15, 2019 10:27
[2019-02-15] MEDS ORDERED: Lidocaine 2% 20mg/ml/EPI 0.01mg/ml 20ml INJ ONE (10:30)
--- NOTE | 2019-02-15 10:43 | NUR ---
NURSE NOTES: Patient came back from IR. Right upper chest perma cath noted. No bleeding noted. Dressing intact and clean.
[2019-02-15] MEDS ORDERED: NS 275ml ONE ×2 (10:54→14:35)
--- NOTE | 2019-02-15 12:01 | Diagnostic Imaging Report ---
Indications: Needs long-term dialysis access Technique: Patient given IV Ancef . Total sterile technique, including sterile probe cover and sterile gel, sterile gloves, hand hygiene, hat, mask,, sterile gown, large sterile drape, and preparation with 2% chlorhexidine utilized. Local anesthesia with 1% lidocaine. Under real-time ultrasound guidance, puncture right internal jugular vein using 21-gauge micropuncture needle, passage 0.018 guidewire, exchange for 4 Austrian micropuncture introducer. The guidewire was used to measure the appropriate catheter length, and was removed. The sheath was left in place. The subcutaneous tract was then anesthetized with 1% lidocaine. A chest dermatotomy was made . The tunneling device was used to pull a 14.5 Austrian 19.0 cm tip to cuff catheter through the subcutaneous tunnel to the neck dermatotomy. A guidewire was passed through the neck introducer into the inferior vena cava, and serial dilators were passed over it, followed by the introduction of a 14.5 Austrian AirGuard peel-away sheath. The catheter was then introduced into the sheath, the peel-away sheath was removed. Digital radiograph documents satisfactory catheter tip position in the high right atrium, no kinking at the insertion site. Both catheter ports aspirated and flushed. Catheter was fixed to the skin. Patient tolerated procedure well without immediate complication. Total fluoroscopy time 27.8 seconds . Total fluoroscopy dose 4.84 mGy Total number fluoroscopic images obtained to Total procedure time 30 minutes Patient monitored throughout the procedure by dedicated image radiology nurse Comparison: None. Findings: Ultrasound demonstrates patent compressible right internal jugular vein. Needle noted as seen on ultrasound for venous access. Completion radiograph documents satisfactory position and course of the catheter, catheter tip at the Cavoatrial junction. Impression: Successful placement of right transjugular tunneled dialysis catheter, as described above Catheter cleared for immediate use.
--- NOTE | 2019-02-15 12:21 | NUR ---
SWALLOW/SPEECH THERAPY NOTES: REFERRED FOR SWALLOW EVAL BY DR PATHAK, SEE ST CARE ACTIVITY SECTION. DYSPHAGIA RISK FACTORS FOR THIS 68 Y.O. ROMANIAN-SPEAKING ([place]) MALE: ACUTE ISSUES: acute sepsis, RESP DISTRESS, INTUBATION (02/06-02/14/19) 9 DAYS 1 DAY POST, BILAT PNA (R LL) H/O GERD, ESRD WITH HD, EPILEPTIC SZ, COPD EXACERBATION, SMOKING 45 YEARS, ALCOHOL 46 YEARS QUIT 15 YEARS AGO, ATYPICAL CHF, ANXIETY D/O, DM2 INSULIN, HYPERTENSIVE CARDIAC DZ. POLST STATES OK TO HAVE ARTIFICIAL NUTRITION IF NEEDS OGT JUST REMOVED WHEN EXTUBATED YESTERDAY AT SNF ON A RODOLFO AND RENAL REGULAR TEXTURE DIET WITH THIN LIQUIDS 80 GR PROTEIN NOW ON CCHO-MED AND RENAL CLEAR LIQUID DIET WITH 75% INTAKE. ALERT AND ABLE TO EXPRESS NEEDS. DENTURES AT SNF (EDENTULOUS NOW). DISORIENTED TO YEAR BUT ORIENTED TO CITY AND HOSP. INITIAL IMPRESSIONS: QUESTIONABLE RISK FOR SUBTLE DYSPHAGIA AND SILENT ASPIRATION RISK (HAS SEIZURE HX, BILATERAL PNA NOW, AND COPD WITH EXACERBATION AND HIGH RR 25 TO 26 AT TIMES). LIPS FUNCTIONAL TONGUE IS SLIGHTLY INCOORDINATED BUT FAIR STRENGTH AND ROM. BROWN MID TO BACK OF TONGUE (DUE TO SMOKING PER PT) GROSSLY FUNCTIONAL SWALLOW WITH NECTAR THICK LIQUID SEQUENTIAL SIPS VIA CUP W/O OVERT ASPIRATION. APPEARS TO HAVE A GROSSLY FUNCTIONAL SWALLOW WITH PUREED TSP WILL HOLD ON THIN LIQUIDS FOR NOW SINCE HE MAY HAVE A SILENT ASPIRATION RISK AND HIS RR HIGH 25 (GOOD SATS ON 3 LITERS NC). PER RN NO OBSERVED OVERT ASPIRATION WITH THIN LIQUIDS AND CLEAR LIQUID DIET AND PILLS WITH WATER. EDENTULOUS AND DENTURES ARE AT SNF SO NOT GIVEN MASTICATED SOLIDS. C/O ODYNOPHAGIA OR SORE THROAT WITH SWALLOWING (POST INTUBATION) FAIR INTAKE ON CL DIET WANTS TO EAT/DRINK BY MOUTH RECOMMENDATIONS: COMPLETE MODIFIED BARIUM SWALLOW STUDY TO FURTHER ASSESS SWALLOW, DETERMINE SILENT ASP RISK, ATTEMPT TRIAL TX TECHNIQUES IF PO CONTINUES FOR QUALITY OF LIFE, CONSIDER KEEPING HIM ON PUREED AND NECTAR THICK LIQUIDS OVER THE WEEKEND (IF VIDEOSWALLOW STUDY NOT YET COMPLETED). USE STRICT ASP/REFLUX PRECAUTIONS AND SUPERVISE MEALS PRN PER RD RENAL CCHO-MED TYPE DIET. EDUCATED/TRAINED STAFF (YU GARCIA) IN POSTED ASPIRATION / REFLUX PRECAUTIONS. SKILLED DYSPHAGIA MANAGEMENT AND TX AND COG-COM EVAL/TX IF NEEDS D/W RN AND LEFT MESSAGE WITH DR PATHAK.
--- NOTE | 2019-02-15 12:25 | NUR ---
NURSE NOTES: Seen by ST and changed diet.
[2019-02-15] MEDS ORDERED: D5NS 1000ml IV ONE (14:37)
[2019-02-15] MEDS ORDERED: Tubing IV Secondary IV ONE (14:37)
--- NOTE | 2019-02-15 14:45 | NUR ---
NURSE NOTES: Right femoral dillan cath is removed by Dr. Batres. No bleeding noted. Will continue plan fo care.
[2019-02-15 15:41] LABS: BASOPHILS % (AUTO) 1.6 % (0.0-2.0); EOSINOPHILS % (AUTO) 5.4 % (0.0-3.0); HEMATOCRIT 29.6 % (42.0-52.0); HEMOGLOBIN 9.4 G/DL (14.2-18.0); LYMPHOCYTES % (AUTO) 17.9 % (20.0-45.0); MEAN CORPUSCULAR VOLUME 94 FL (80-99); MONOCYTES % (AUTO) 9.4 % (1.0-10.0); NEUTROPHILS % (AUTO) 65.7 % (45.0-75.0); PLATELET COUNT 103 K/UL (150-450); RED BLOOD COUNT 3.15 M/UL (4.70-6.10); RED CELL DISTRIBUTION WIDTH 17.9 % (11.6-14.8); WHITE BLOOD COUNT 6.7 K/UL (4.8-10.8)
[2019-02-15 15:49] LABS: ANION GAP 8 mmol/L (5-15); BLOOD UREA NITROGEN 51 mg/dL (7-18); CALCIUM 6.6 MG/DL (8.5-10.1); CARBON DIOXIDE 25 MMOL/L (21-32); CHLORIDE 113 MMOL/L (98-107); CREATININE 5.5 MG/DL (0.55-1.30); SODIUM 146 MMOL/L (136-145)
--- NOTE | 2019-02-15 16:13 | Hematology/Onc Progress Note ---
Assessment/Plan Assessment/Plan Assessment and Recs: # Anemia of chronic disease due to underlying chronic medical issues, multifactorial --> Anemia workup has been ordered, rule out gi bleed --> No evidence of hemolysis is noted, peripheral smear has been reviewed. --> Hgb goal >7. Transfuse prn. --> Epogen and iron both started given ckd, ferritin only 274 (needs to be >500 for esrd pts) --> Medications have been reviewed --> low threshold for gi evaluation in case has occult + --> hgb trend 9.9-->9.4-->9.1-->9->9.4 # Leukocytosis/elevated white blood cell count, unspecified likely related to underlying stress reaction, pna, ARDS --> have reviewed peripheral smear and bandemia/neutrophilia noted --> continue antibiotics if they have been started by ID team --> 23-->17-->20k-->18k-->12-->11 # Thrombocytopenia - potential causes multifactorial, evaluate liver and viral etiologies to begin, also could be related to underlying medications patient has received. may be due to Hep C++ (need to confirm) --> Hep panel shows HEPATITIS C++ and HIV is negative --> US abd shows e/o trace ascites --> Peripheral smear ordered to evaluate for blasts /schistocytes is neg --> abx and other meds have been reviewed --> ok for ppx if plt >50k w/ either heparin or lovenox --> trend 90k-->104k # Respiratory distress with ards --> initially intubated, on a vent --> as per pulm recs -> EXTUBATED NOW # Chronic Obstructive Pulmonary Disease with exacerbation --> breathing treatments on prn basis # Pneumonia --> on abx per id # ESRD - STARTED HD via femoral Junior. ++ PermaCath + AVF. --> hd per renal --> hd on 02/11 # Elevated troponin can be renal related --> per cards, r/o acs # Bilateral amputations # GERD # ETOH abuse The timing of this note does not necessarily reflect the time of the patient was seen. Greatly appreciate consultation! Subjective Constitutional: Denies: no symptoms, chills, fever, malaise, weakness, other HEENT: Denies: no symptoms, eye pain, blurred vision, tearing, double vision, ear pain, ear discharge, nose pain, nose congestion, throat pain, throat swelling, mouth pain, mouth swelling, other Cardiovascular: Denies: no symptoms, chest pain, edema, irregular heart rate, lightheadedness, palpitations, syncope, other Respiratory: Denies: no symptoms, cough, shortness of breath, SOB with excertion, SOB at rest, sputum, wheezing, other Gastrointestinal/Abdominal: Denies: no symptoms, abdomen distended, abdominal pain, black stools, tarry stools, blood in stool, constipated, diarrhea, difficulty swallowing, nausea, poor appetite, poor fluid intake, rectal bleeding , vomiting, other Genitourinary: Denies: no symptoms, burning, discharge, frequency, flank pain, hematuria, incontinence, pain, urgency, other Neurologic/Psychiatric: Denies: no symptoms, anxiety, depressed, emotional problems, headache, numbness, paresthesia, pre-existing deficit, seizure, tingling, tremors, weakness, other Endocrine: Denies: no symptoms, excessive sweating, flushing, intolerance to cold, intolerance to heat, increased hunger, increased thirst, increased urine, unexplained weight gain, unexplained weight loss, other Allergies: Coded Allergies: No Known Allergies (Unverified , 09/25/17) Subjective 02/08: is on joes and vanc, broad spectrum abx, no f/c, vent adjusted per pulm 02/10: given k, remains on vent, in icu, vent weaning pending 02/11: no events noted, no f/c, remains in icu, is on vent 02/12: no events, labs reviewed, permacath for tomorrow, intub 02/13: permacath procedure pending, currently on hold, to get bioethics consult 02/14: extubated, looking better, no f/c, needing permacath 02/15: plt stable, no fevers, is on 3l nc, icu Objective Objective Current Medications Medications (Trade) Dose Ordered Sig/Joe Route PRN Reason Start Time Stop Time Status Last Admin Dose Admin Acetaminophen (Tylenol) 650 mg Q4H PRN GT Mild Pain/Temp > 100.5 02/11/19 15:34 03/13/19 15:33 02/14/19 09:15 Al Hydroxide/Mg Hydroxide (Mylanta) 30 ml PRN ORAL 02/06/19 05:45 03/08/19 05:44 Carvedilol (Coreg) 3.125 mg EVERY 12 HOURS NG 02/12/19 09:00 03/14/19 08:59 02/15/19 08:26 Chlorhexidine Gluconate (Falguni-Hex 2%) 1 applic DAILY@2000 TOPIC 02/06/19 20:00 03/08/19 19:59 02/14/19 20:25 Dextrose (Dextrose 50%) 25 ml Q30M PRN IV Hypoglycemia 02/06/19 11:30 03/08/19 11:29 Dextrose (Dextrose 50%) 50 ml Q30M PRN IV Hypoglycemia 02/06/19 11:30 03/08/19 11:29 Epoetin Mayo (Epoetin Mayo(ESRD on dialysis)) 10,000 unit MON-MON-MON SUBQ 02/06/19 21:00 03/08/19 20:59 02/13/19 20:39 Heparin Sodium (Porcine) (Heparin 5000 units/ml) 5,000 units EVERY 12 HOURS SUBQ 02/06/19 09:00 03/08/19 08:59 02/13/19 20:40 Heparin Sodium (Porcine) (Heparin Sod 1000 units/ml 10ml) 500 unit ONCE PRN IV FOR HD USE 02/15/19 07:00 02/15/19 23:59 Heparin Sodium (Porcine) (Heparin Sod 1000 units/ml 10ml) 2,000 unit ONCE PRN IV FOR HD USE 02/15/19 07:00 02/15/19 23:59 Heparin Sodium/ Sodium Chloride (Heparin 1000 units/500ml Premix) 1,000 unit ONCE PRN IV PERMACATH INSERTION 02/15/19 09:30 02/17/19 23:59 Insulin Aspart (NovoLOG) AC+HS SUBQ 02/14/19 21:00 03/08/19 11:59 02/15/19 11:34 Lansoprazole (Prevacid) 30 mg DAILY NG 02/06/19 09:00 03/08/19 08:59 02/15/19 08:26 Lorazepam (Ativan 2mg/ml 1ml) 0.5 mg Q2H PRN IV For Anxiety 02/09/19 22:15 02/16/19 22:14 02/13/19 08:33 Metoclopramide HCl (Reglan) 5 mg Q6H PRN IVP Nausea & Vomiting 02/13/19 20:15 03/15/19 20:14 02/13/19 20:48 Morphine Sulfate (Morphine Sulfate) 2 mg Q2H PRN IVP For Pain 02/09/19 23:45 02/16/19 23:44 02/13/19 08:32 Sodium Chloride 1,000 ml @ 500 mls/hr Q2H PRN IVLG sbp<90 during hd 02/15/19 07:00 02/15/19 23:59 Last 24 Hour Vital Signs Date Time Temp Pulse Resp B/P (MAP) Pulse Ox O2 Delivery O2 Flow Rate FiO2 02/15/19 15:00 71 24 85/32 (49) 95 02/15/19 14:00 73 15 103/53 (70) 92 02/15/19 13:30 74 23 95/55 (68) 92 02/15/19 13:00 70 22 97/44 (61) 93 02/15/19 12:30 71 20 92/39 (56) 96 02/15/19 12:00 Nasal Cannula 3.0 02/15/19 12:00 75 02/15/19 12:00 98.3 72 23 116/48 (70) 95 02/15/19 11:00 76 25 131/60 (83) 94 02/15/19 10:30 81 24 159/80 (106) 94 02/15/19 10:25 82 26 162/83 (109) 94 02/15/19 10:20 76 19 152/79 (103) 94 02/15/19 10:15 98.5 69 16 122/59 (80) 97 02/15/19 10:03 69 16 3.0 02/15/19 09:00 78 19 97/36 (56) 94 02/15/19 08:26 80 121/52 02/15/19 08:00 Nasal Cannula 3.0 02/15/19 08:00 80 02/15/19 08:00 98.5 83 20 121/51 (74) 97 02/15/19 07:00 80 22 109/37 (61) 95 02/15/19 06:30 97 Nasal Cannula 2.0 28 02/15/19 06:00 78 22 115/44 (67) 95 02/15/19 05:00 74 22 114/40 (64) 95 02/15/19 04:00 97.8 74 22 118/54 (75) 94 02/15/19 04:00 Nasal Cannula 3.0 02/15/19 04:00 74 02/15/19 03:00 75 22 128/44 (72) 94 02/15/19 02:00 75 1 123/56 (78) 94 02/15/19 01:00 72 1 111/49 (69) 94 02/15/19 00:00 82 02/15/19 00:00 50 02/15/19 00:00 Nasal Cannula 3.0 02/15/19 00:00 97.4 70 18 114/49 (70) 94 02/14/19 23:00 75 20 129/82 (98) 94 02/14/19 22:00 75 22 124/51 (75) 94 02/14/19 21:07 71 121/46 02/14/19 21:00 72 22 117/47 (70) 94 02/14/19 20:00 72 02/14/19 20:00 Nasal Cannula 3.0 02/14/19 20:00 50 02/14/19 20:00 97.6 72 22 111/25 (53) 95 02/14/19 19:00 70 22 104/45 (64) 97 02/14/19 18:00 70 21 96/30 (52) 93 02/14/19 17:35 97 Nasal Cannula 2.0 28 02/14/19 17:00 69 23 114/46 (68) 96 02/14/19 16:00 71 02/14/19 16:00 97.4 70 24 115/43 (67) 97 02/14/19 16:00 3.0 02/14/19 16:00 Nasal Cannula 3.0 02/14/19 15:00 68 21 118/47 (70) 100 02/14/19 14:00 67 25 102/45 (64) 97 02/14/19 13:00 80 21 107/30 (55) 02/14/19 12:45 50 02/14/19 12:45 Venturi Mask 12.0 50 02/14/19 12:30 78 26 115/45 (68) 02/14/19 12:00 Mechanical Ventilator 02/14/19 12:00 97.6 78 24 125/49 (74) 100 02/14/19 12:00 72 02/14/19 12:00 50 02/14/19 11:20 78 26 50 02/14/19 11:00 98 02/14/19 11:00 79 22 127/59 (81) 100 02/14/19 10:00 80 29 131/52 (78) 100 02/14/19 09:40 79 22 50 02/14/19 09:35 80 28 50 02/14/19 09:15 81 128/107 02/14/19 09:00 84 24 128/107 (114) 100 02/14/19 08:00 50 02/14/19 08:00 98.2 78 26 126/50 (75) 100 02/14/19 08:00 81 02/14/19 08:00 Mechanical Ventilator 02/14/19 07:30 80 28 50 02/14/19 07:00 83 22 120/83 (95) 98 02/14/19 06:00 84 21 147/63 (91) 97 02/14/19 05:10 80 27 50 02/14/19 05:00 81 22 133/52 (79) 100 02/14/19 04:00 79 02/14/19 04:00 98.6 80 24 136/58 (84) 99 02/14/19 04:00 Mechanical Ventilator 02/14/19 04:00 50 02/14/19 03:02 81 26 50 02/14/19 03:00 79 26 149/56 (87) 100 02/14/19 02:00 84 26 119/45 (69) 100 02/14/19 01:00 78 26 129/48 (75) 99 02/14/19 00:31 79 26 50 02/14/19 00:00 86 02/14/19 00:00 50 02/14/19 00:00 98.3 82 26 149/65 (93) 97 02/14/19 00:00 Mechanical Ventilator 02/13/19 23:00 84 26 129/48 (75) 99 02/13/19 22:38 82 26 50 02/13/19 22:00 87 26 104/44 (64) 96 02/13/19 21:00 88 26 114/44 (67) 99 02/13/19 20:41 80 33 50 02/13/19 20:39 80 155/61 02/13/19 20:00 Mechanical Ventilator 02/13/19 20:00 76 02/13/19 20:00 50 02/13/19 20:00 98.5 76 26 155/67 (96) 99 02/13/19 19:00 73 26 146/62 (90) 99 02/13/19 18:55 81 29 50 02/13/19 18:00 71 26 148/63 (91) 99 02/13/19 17:30 71 26 119/58 (78) 92 02/13/19 17:11 73 26 50 02/13/19 17:00 81 26 125/77 (93) 91 Intake and Output 02/14/19 02/15/19 19:00 07:00 Intake Total 435 ml 220 ml Output Total 300 ml 620 ml Balance 135 ml -400 ml Intake Oral 270 ml 220 ml Free Water 40 ml IV Total 55 ml Tube Feeding 70 ml Output Urine Total 300 ml 620 ml Stool Total 0 ml # Bowel Movements 2 Labs Test 02/13/19 08:50 02/13/19 12:00 02/14/19 11:20 02/14/19 17:55 White Blood Count 10.9 K/UL (4.8-10.8) 8.2 K/UL (4.8-10.8) Red Blood Count 3.20 M/UL (4.70-6.10) 2.94 M/UL (4.70-6.10) Hemoglobin 9.4 G/DL (14.2-18.0) 8.7 G/DL (14.2-18.0) Hematocrit 30.0 % (42.0-52.0) 27.3 % (42.0-52.0) Mean Corpuscular Volume 94 FL (80-99) 93 FL (80-99) Mean Corpuscular Hemoglobin 29.4 PG (27.0-31.0) 29.6 PG (27.0-31.0) Mean Corpuscular Hemoglobin Concent 31.3 G/DL (32.0-36.0) 31.9 G/DL (32.0-36.0) Red Cell Distribution Width 19.5 % (11.6-14.8) 18.0 % (11.6-14.8) Platelet Count 106 K/UL (150-450) 92 K/UL (150-450) Mean Platelet Volume 10.2 FL (6.5-10.1) 9.2 FL (6.5-10.1) Neutrophils (%) (Auto) 71.9 % (45.0-75.0) % (45.0-75.0) Lymphocytes (%) (Auto) 16.8 % (20.0-45.0) % (20.0-45.0) Monocytes (%) (Auto) 6.8 % (1.0-10.0) % (1.0-10.0) Eosinophils (%) (Auto) 3.8 % (0.0-3.0) % (0.0-3.0) Basophils (%) (Auto) 0.7 % (0.0-2.0) % (0.0-2.0) Sodium Level 148 MMOL/L (136-145) Potassium Level 3.2 MMOL/L (3.5-5.1) Chloride Level 112 MMOL/L (98-107) Carbon Dioxide Level 22 MMOL/L (21-32) Anion Gap 14 mmol/L (5-15) Blood Urea Nitrogen 51 mg/dL (7-18) Creatinine 5.6 MG/DL (0.55-1.30) Estimat Glomerular Filtration Rate 10.2 mL/min (>60) Glucose Level 108 MG/DL (74-106) Calcium Level 7.4 MG/DL (8.5-10.1) Arterial Blood pH 7.385 (7.350-7.450) 7.393 (7.350-7.450) Arterial Blood Partial Pressure CO2 38.9 mmHg (35.0-45.0) 33.2 mmHg (35.0-45.0) Arterial Blood Partial Pressure O2 60.1 mmHg (75.0-100.0) 99.9 mmHg (75.0-100.0) Arterial Blood HCO3 22.8 mmol/L (22.0-26.0) 19.8 mmol/L (22.0-26.0) Arterial Blood Oxygen Saturation 88.7 % (95-100) 96.6 % (95-100) Arterial Blood Base Excess -2.0 (-2-2) -4.4 (-2-2) Trevor Test Positive Positive Differential Total Cells Counted 100 Neutrophils % (Manual) 78 % (45-75) Lymphocytes % (Manual) 10 % (20-45) Monocytes % (Manual) 5 % (1-10) Eosinophils % (Manual) 6 % (0-3) Basophils % (Manual) 1 % (0-2) Band Neutrophils 0 % (0-8) Platelet Estimate Decreased Platelet Morphology Normal Hypochromasia 2+ Anisocytosis 2+ Test 02/15/19 15:20 White Blood Count 6.7 K/UL (4.8-10.8) Red Blood Count 3.15 M/UL (4.70-6.10) Hemoglobin 9.4 G/DL (14.2-18.0) Hematocrit 29.6 % (42.0-52.0) Mean Corpuscular Volume 94 FL (80-99) Mean Corpuscular Hemoglobin 29.8 PG (27.0-31.0) Mean Corpuscular Hemoglobin Concent 31.7 G/DL (32.0-36.0) Red Cell Distribution Width 17.9 % (11.6-14.8) Platelet Count 103 K/UL (150-450) Mean Platelet Volume 8.6 FL (6.5-10.1) Neutrophils (%) (Auto) 65.7 % (45.0-75.0) Lymphocytes (%) (Auto) 17.9 % (20.0-45.0) Monocytes (%) (Auto) 9.4 % (1.0-10.0) Eosinophils (%) (Auto) 5.4 % (0.0-3.0) Basophils (%) (Auto) 1.6 % (0.0-2.0) Sodium Level 146 MMOL/L (136-145) Potassium Level 4.0 MMOL/L (3.5-5.1) Chloride Level 113 MMOL/L (98-107) Carbon Dioxide Level 25 MMOL/L (21-32) Anion Gap 8 mmol/L (5-15) Blood Urea Nitrogen 51 mg/dL (7-18) Creatinine 5.5 MG/DL (0.55-1.30) Estimat Glomerular Filtration Rate 10.4 mL/min (>60) Glucose Level 153 MG/DL (74-106) Calcium Level 6.6 MG/DL (8.5-10.1) Height (Feet): 5 Height (Inches): 3.00 Weight (Pounds): 110 Objective PE Gen: fatigued, on mechanical ventilator Eyes: bilateral eye PERRL, b/l eye EOMI Respiratory: Bilateral wheezing, rhonchi now off vent since 02/13 Cardiovascular: normal heart sound, normal peripheral pulses, rrr GI: non tender, soft, no guarding, no rebound ++ peg Msk normal inspection Neuro: sedated, no focal signs Skin: no rash, warm/dry Nicho Rebolledo MD Feb 15, 2019 16:13
--- NOTE | 2019-02-15 16:31 | NUR ---
[employer] Team Manager SI: Respiratory Failure S/P Extubation BP:95/45 HR:73 RR:23 02 Sat:94% on 3L NC T:98.0 S/P Perma Cath placement 02/15/19 IS: Heparin Sub-Q Reglan IV ICU Status
--- NOTE | 2019-02-15 17:00 | NUR ---
NURSE NOTES: Report received from Kwabena Byrd RN. Pt is alert and oriented x4. Mainly Korean speaking. Sinus rhythm on monitoring and evaluation advisor. On N/c 4L. O2 sat 95%. Pt is getting dialyzed at bedside. No respiratory distress noted. Suprapubic catheter in place draining to gravity. Right upper chest perma-cath for HD noted. IV to left hand G24 patent and asymptomatic. Bed in lowest position. Side rails up x3. Will continue plan of care.
--- NOTE | 2019-02-15 18:10 | NUR ---
HAND-OFF: Report given to YU Cardoza. Endorsed plan of care.
--- NOTE | 2019-02-15 18:35 | Pulmonolgy Critical Care Note ---
Critical Care - Asmt/Plan Assessment/Plan: Pulmonary CCM Progress Note Assessment/Plan Impression: Respiratory failure, acute, s/p extubation Chronic Obstructive Pulmonary Disease with exacerbation Pneumonia Acute kidney injury, h/o Chronic Kidney Disease Elevated troponin Anemia Congestive Heart Failure Previous Atrial Fibrillation Coronary Artery Disease Hypertension Hyperlipidemia Diabetes Bilateral amputations GERD ETOH abuse Plan Adjust O2 PRN off pressors and monitor IV Antibiotics- ID noted HHN Monitor labs SCD Transfuse as needed HD for now [facility] and Renal Consultation medications/laboratory data/nursing notes/ICU care reviewed in detail note reviewed and edited care discussed with RN and RT ICU time spent 40 minutes Critical Care - Subjective Interval Events: remains ill on HD in ICU consultants appreciated ROS Limited/Unobtainable: Yes Condition: critical EKG Rhythm: Sinus Rhythm Critical Care - Objective Vital Signs Noted Labs noted Objective: WDWN clear breath sounds bilaterally without rhonchi or wheeze [id number] without MRG NABS nontender no HSM no CC nonfocal; Micro: Labs: noted Microbiology Date/Time Source Procedure Growth Status 02/05/19 23:10 Blood Blood Culture - Preliminary NO GROWTH AFTER 24 HOURS Resulted 02/05/19 22:55 Blood Blood Culture - Preliminary NO GROWTH AFTER 24 HOURS Resulted 02/06/19 03:00 Rectum Received Critical Care - Objective Last 24 Hour Vital Signs Date Time Temp Pulse Resp B/P (MAP) Pulse Ox O2 Delivery O2 Flow Rate FiO2 02/15/19 16:00 98.0 73 23 95/45 (62) 94 02/15/19 15:00 71 24 85/32 (49) 95 02/15/19 14:00 73 15 103/53 (70) 92 02/15/19 13:30 74 23 95/55 (68) 92 02/15/19 13:00 70 22 97/44 (61) 93 02/15/19 12:30 71 20 92/39 (56) 96 02/15/19 12:00 Nasal Cannula 3.0 02/15/19 12:00 75 02/15/19 12:00 98.3 72 23 116/48 (70) 95 02/15/19 11:00 76 25 131/60 (83) 94 02/15/19 10:30 81 24 159/80 (106) 94 02/15/19 10:25 82 26 162/83 (109) 94 02/15/19 10:20 76 19 152/79 (103) 94 02/15/19 10:15 98.5 69 16 122/59 (80) 97 02/15/19 10:03 69 16 3.0 02/15/19 09:00 78 19 97/36 (56) 94 02/15/19 08:26 80 121/52 02/15/19 08:00 Nasal Cannula 3.0 02/15/19 08:00 80 02/15/19 08:00 98.5 83 20 121/51 (74) 97 02/15/19 07:00 80 22 109/37 (61) 95 02/15/19 06:30 97 Nasal Cannula 2.0 28 02/15/19 06:00 78 22 115/44 (67) 95 02/15/19 05:00 74 22 114/40 (64) 95 02/15/19 04:00 97.8 74 22 118/54 (75) 94 02/15/19 04:00 Nasal Cannula 3.0 02/15/19 04:00 74 02/15/19 03:00 75 22 128/44 (72) 94 02/15/19 02:00 75 1 123/56 (78) 94 02/15/19 01:00 72 1 111/49 (69) 94 02/15/19 00:00 82 02/15/19 00:00 50 02/15/19 00:00 Nasal Cannula 3.0 02/15/19 00:00 97.4 70 18 114/49 (70) 94 02/14/19 23:00 75 20 129/82 (98) 94 02/14/19 22:00 75 22 124/51 (75) 94 02/14/19 21:07 71 121/46 02/14/19 21:00 72 22 117/47 (70) 94 02/14/19 20:00 72 02/14/19 20:00 Nasal Cannula 3.0 02/14/19 20:00 50 02/14/19 20:00 97.6 72 22 111/25 (53) 95 02/14/19 19:00 70 22 104/45 (64) 97 Accucheck: 191 Critical Care - Subjective ROS Limited/Unobtainable: No FI02: 28 Vent Support Breath Rate: 26 Vent Support Mode: CPAP Vent Tidal Volume: 550 Sputum Amount: Small PEEP: 5.0 PIP: 13 Tube Feeding Amount: 35 I&O: Intake and Output 02/14/19 02/15/19 19:00 07:00 Intake Total 435 ml 220 ml Output Total 300 ml 620 ml Balance 135 ml -400 ml Intake Oral 270 ml 220 ml Free Water 40 ml IV Total 55 ml Tube Feeding 70 ml Output Urine Total 300 ml 620 ml Stool Total 0 ml # Bowel Movements 2 ET-Tube: 7.5 ET Position: 23 Jamari Chambers MD Feb 15, 2019 18:35
--- NOTE | 2019-02-15 19:11 | Surgery Progress Note ---
Surgery Progress Note Subjective Additional Comments got permacath femoral line removed Objective Last 24 Hour Vital Signs Date Time Temp Pulse Resp B/P (MAP) Pulse Ox O2 Delivery O2 Flow Rate FiO2 02/15/19 19:00 72 23 118/61 (80) 94 02/15/19 18:02 71 26 81/48 (59) 92 02/15/19 17:00 73 26 114/50 (71) 92 02/15/19 17:00 Nasal Cannula 3.0 02/15/19 16:00 98.0 73 23 95/45 (62) 94 02/15/19 15:29 72 02/15/19 15:00 71 24 85/32 (49) 95 02/15/19 14:00 73 15 103/53 (70) 92 02/15/19 13:30 74 23 95/55 (68) 92 02/15/19 13:00 70 22 97/44 (61) 93 02/15/19 12:30 71 20 92/39 (56) 96 02/15/19 12:00 Nasal Cannula 3.0 02/15/19 12:00 75 02/15/19 12:00 98.3 72 23 116/48 (70) 95 02/15/19 11:00 76 25 131/60 (83) 94 02/15/19 10:30 81 24 159/80 (106) 94 02/15/19 10:25 82 26 162/83 (109) 94 02/15/19 10:20 76 19 152/79 (103) 94 02/15/19 10:15 98.5 69 16 122/59 (80) 97 02/15/19 10:03 69 16 3.0 02/15/19 09:00 78 19 97/36 (56) 94 02/15/19 08:26 80 121/52 02/15/19 08:00 Nasal Cannula 3.0 02/15/19 08:00 80 02/15/19 08:00 98.5 83 20 121/51 (74) 97 02/15/19 07:00 80 22 109/37 (61) 95 02/15/19 06:30 97 Nasal Cannula 2.0 28 02/15/19 06:00 78 22 115/44 (67) 95 02/15/19 05:00 74 22 114/40 (64) 95 02/15/19 04:00 97.8 74 22 118/54 (75) 94 02/15/19 04:00 Nasal Cannula 3.0 02/15/19 04:00 74 02/15/19 03:00 75 22 128/44 (72) 94 02/15/19 02:00 75 1 123/56 (78) 94 02/15/19 01:00 72 1 111/49 (69) 94 02/15/19 00:00 82 02/15/19 00:00 50 02/15/19 00:00 Nasal Cannula 3.0 02/15/19 00:00 97.4 70 18 114/49 (70) 94 02/14/19 23:00 75 20 129/82 (98) 94 02/14/19 22:00 75 22 124/51 (75) 94 02/14/19 21:07 71 121/46 02/14/19 21:00 72 22 117/47 (70) 94 02/14/19 20:00 72 02/14/19 20:00 Nasal Cannula 3.0 02/14/19 20:00 50 02/14/19 20:00 97.6 72 22 111/25 (53) 95 I&O Intake and Output 02/14/19 02/15/19 19:00 07:00 Intake Total 435 ml 220 ml Output Total 300 ml 620 ml Balance 135 ml -400 ml Intake Oral 270 ml 220 ml Free Water 40 ml IV Total 55 ml Tube Feeding 70 ml Output Urine Total 300 ml 620 ml Stool Total 0 ml # Bowel Movements 2 Dressing: dry Wound: clean Cardiovascular: RSR Respiratory: clear Abdomen: soft, present bowel sounds Extremities: other Laboratory Tests Test 02/15/19 15:20 White Blood Count 6.7 K/UL (4.8-10.8) Red Blood Count 3.15 M/UL (4.70-6.10) L Hemoglobin 9.4 G/DL (14.2-18.0) L Hematocrit 29.6 % (42.0-52.0) L Mean Corpuscular Volume 94 FL (80-99) Mean Corpuscular Hemoglobin 29.8 PG (27.0-31.0) Mean Corpuscular Hemoglobin Concent 31.7 G/DL (32.0-36.0) L Red Cell Distribution Width 17.9 % (11.6-14.8) H Platelet Count 103 K/UL (150-450) L Mean Platelet Volume 8.6 FL (6.5-10.1) Neutrophils (%) (Auto) 65.7 % (45.0-75.0) Lymphocytes (%) (Auto) 17.9 % (20.0-45.0) L Monocytes (%) (Auto) 9.4 % (1.0-10.0) Eosinophils (%) (Auto) 5.4 % (0.0-3.0) H Basophils (%) (Auto) 1.6 % (0.0-2.0) Sodium Level 146 MMOL/L (136-145) H Potassium Level 4.0 MMOL/L (3.5-5.1) Chloride Level 113 MMOL/L (98-107) H Carbon Dioxide Level 25 MMOL/L (21-32) Anion Gap 8 mmol/L (5-15) Blood Urea Nitrogen 51 mg/dL (7-18) H Creatinine 5.5 MG/DL (0.55-1.30) H Estimat Glomerular Filtration Rate 10.4 mL/min (>60) Glucose Level 153 MG/DL (74-106) H Calcium Level 6.6 MG/DL (8.5-10.1) L Plan Problems: (1) ARDS (adult respiratory distress syndrome) (2) Anemia (3) Elevated troponin (4) MARY (acute kidney injury) (5) COPD with exacerbation (6) Abnormal LFTs Assessment & Plan: Abnormalities likely from shock liver. Gallbladder wall thickening nonspecific. Sonographic Rojas's is equivocal due to patient's condition. Trace ascites Bilateral pleural effusions. Suspected medical renal disease. Suspected nonobstructive stone in the right kidney. Trend labs Leukocytosis trending down Anemia LFTs normal now Improving (7) COPD (chronic obstructive pulmonary disease) (8) Respiratory distress (9) Pneumonia (10) HTN (hypertension) (11) Epileptic seizure, generalized (12) Shock liver Assessment & Plan: Shock liver likely from hypotension and cardiovascular arrest. Resuscitation with IV fluids ICU care and management Trend labs overall improving permacath fem line removed We will follow with recommendations (13) Suprapubic catheter Hari Batres Feb 15, 2019 19:10
--- NOTE | 2019-02-15 19:13 | Operative Note - PDOC ---
Operative Note Operative Note Pre-op Diagnosis: shock renal insufficiency critical care sepsis Procedure: removal right femoral temporary hemodialysis catheter Post-op Diagnosis: same as pre-op Surgeon: darby Specimen: none Complications: none Condition: unstable Estimated Blood Loss: minimal Drains: none Implant(s) used?: No Indications for Procedure patient received permacath today line ready to be removed Description of Procedure patient made comfortable at bedside in supine position. site cleaned after dressings removed. sutures removed. line removed and pressure held for 5 minutes until good hemostasis noted. dressings applied. will monitor for bleeding. Hari Batres Feb 15, 2019 19:13
--- NOTE | 2019-02-15 19:20 | NUR ---
NURSE NOTES: Report received from [facility] Kendall. Pt is alert and oriented x4. Mainly [place]ian speaking. Sinus rhythm on manager cardiac cath. On N/c 4L. O2 sat 95%. Pt is getting dialyzed at bedside. No respiratory distress noted. Suprapubic catheter in place draining to gravity. Right upper chest perma-cath for HD noted. IV to left hand G24 patent and asymptomatic. Bed in lowest position. Side rails up x3. Pt will be transferred to [facility] after HD. Will continue plan of care.
--- NOTE | 2019-02-15 19:20 | NUR ---
HAND-OFF: Report given to Darshan Cooper RN.
--- NOTE | 2019-02-15 20:00 | NUR ---
NURSE NOTES: Pt's resting in bed, no acute distress, finished with HD, 2L out. VS stable BP114/53, HR 74, R22, O2 95% with 4L/NC, 98.4F. Transferring pt to tele.
--- NOTE | 2019-02-15 20:05 | NUR ---
NURSE NOTES: Received pt from ICU via hospital bed. Report received from [facility] Sexton. Pt is awake, AOx4. In no acute distress. Breathing even and unlabored on 2 LPM via NC. Oriented pt to new room and unit. Bed in lowest position, call light within reach. Will continue plan of care.
[2019-02-15] MEDS: Dyna-Hex 2% Top Sol 2oz TOPIC SCH (20:19)
[2019-02-15] MEDS ORDERED: Morphine Sulfate 2mg/ml Inj(IV/IM USE ONLY) IVP PRN (21:00)
[2019-02-15] MEDS ORDERED: Heparin 5000 units/ml inj SUBQ SCH ×2 (21:00→21:45)
[2019-02-15] MEDS ORDERED: Epoetin Alfa-EPBX(ESRD on dialysis)10,000 unit/ml vial SUBQ SCH (21:00)
[2019-02-15] MEDS ORDERED: LORazepam Inj 2mg/ml 1ml IV PRN (21:00)
[2019-02-15] MEDS ORDERED: Metoclopramide 10mg/2ml Inj IVP PRN (21:00)
[2019-02-15] MEDS ORDERED: Acetaminophen 650mg/20.3ml GT PRN (21:00)
[2019-02-16] VITALS: BP 124/72
[2019-02-16 04:00] VITALS: BP 130/76
--- NOTE | 2019-02-16 05:15 | Progress Note ---
DATE: 02/15/2019 CARDIOLOGY PROGRESS NOTE SUBJECTIVE: The patient is status post removal of Mahurkar catheter from the right groin. PermCath was placed earlier without complications. OBJECTIVE: VITAL SIGNS: Blood pressure 81/48 earlier, now 118/61; heart rate 72; respiratory rate 23, and afebrile. Monitored rhythm is sinus. LUNGS: Bilateral breath sounds. CARDIAC: Regular rhythm and rate. Normal S1 and S2. ABDOMEN: Soft. EXTREMITIES: No edema. LABORATORY DATA: White count 6.7 and hemoglobin 9.4. Sodium 146, potassium 4, bicarbonate 25, BUN 51, and creatinine 5.5. IMPRESSION: 1. Status post full arrest. 2. Status post respiratory failure. 3. End-stage renal disease. 4. Severe protein-calorie malnutrition. 5. Dehydration. 6. Hypernatremia, improving. 7. Sepsis with shock, recovered. 8. Anemia of chronic kidney disease. 9. Paroxysmal atrial fibrillation. 10. Acute on chronic diastolic congestive heart failure. 11. Status post non-ST elevation myocardial infarction. PLAN: 1. Hemodialysis with ultrafiltration for volume management. 2. Continue adjustments of dialysis correction of electrolytes. 3. Antibiotics per infectious disease statistical consultant. 4. Maintain beta-artis as tolerated by blood pressure. 5. All parameters are in place. 6. Antiplatelet therapy with aspirin to be resumed if no bleeding complications noted over the next 24 hours. Jamari Gale M.D. DR: VONDA JOB#: [id number] CC:
[2019-02-16] MEDS: NovoLOG Insulin Flexpen SUBQ SCH ×4 (06:28→20:12)
--- NOTE | 2019-02-16 07:22 | NUR ---
NURSE NOTES: Received report from Nelson Jean Baptiste. Pt is laying in bed watching tv. Bed is in lowest position, side rails up X2, and call light is within reach. Will continue to monitor.
--- NOTE | 2019-02-16 07:22 | NUR ---
HAND-OFF: Report given to YU Ordoñez.
[2019-02-16 08:00] VITALS: BP 116/62
[2019-02-16] MEDS: Aspirin EC 81mg tab ORAL SCH (08:44)
[2019-02-16] MEDS: Heparin 5000 units/ml inj SUBQ SCH ×2 (08:48→20:19)
--- NOTE | 2019-02-16 09:06 | Critical Care Progress Note ---
Assessment/Plan Assessment/Plan Impression: Respiratory failure, acute Chronic Obstructive Pulmonary Disease with exacerbation Pneumonia Acute kidney injury, h/o Chronic Kidney Disease Elevated troponin Anemia Congestive Heart Failure Previous Atrial Fibrillation Coronary Artery Disease Hypertension Hyperlipidemia Diabetes Bilateral amputations GERD ETOH abuse Plan off vent taper natibiotics HHN Monitor labs monitor HH HD for now [employer] bilingual sales consultant care reviewed nutrition impression, plan, and exam edited and reviewed in detail care discussed with physical therapist center manager - Subjective Interval Events: extubated Condition: improving I&O: Intake and Output 02/15/19 02/16/19 19:00 07:00 Intake Total 375 ml Output Total 365 ml 200 ml Balance 10 ml -200 ml Intake Oral 320 ml IV Total 55 ml Output Urine Total 365 ml 200 ml # Bowel Movements 2 Critical Care - Objective ET-Tube: 7.5 ET Position: 23 Last 24 Hour Vital Signs Date Time Temp Pulse Resp B/P (MAP) Pulse Ox O2 Delivery O2 Flow Rate FiO2 02/16/19 08:44 72 116/62 02/16/19 08:00 98.2 72 20 116/62 (80) 92 02/16/19 04:00 71 02/16/19 04:00 98.4 71 18 130/76 (94) 96 02/16/19 00:00 98.6 75 18 124/72 (89) 94 02/16/19 00:00 75 02/15/19 21:32 74 118/61 02/15/19 21:00 Nasal Cannula 3.0 02/15/19 20:00 72 02/15/19 20:00 98.4 72 18 114/54 (74) 94 02/15/19 19:00 72 23 118/61 (80) 94 02/15/19 18:02 71 26 81/48 (59) 92 02/15/19 17:00 73 26 114/50 (71) 92 02/15/19 17:00 Nasal Cannula 3.0 02/15/19 16:00 98.0 73 23 95/45 (62) 94 02/15/19 15:29 72 02/15/19 15:00 71 24 85/32 (49) 95 02/15/19 14:00 73 15 103/53 (70) 92 02/15/19 13:30 74 23 95/55 (68) 92 02/15/19 13:00 70 22 97/44 (61) 93 02/15/19 12:30 71 20 92/39 (56) 96 02/15/19 12:00 Nasal Cannula 3.0 02/15/19 12:00 75 02/15/19 12:00 98.3 72 23 116/48 (70) 95 02/15/19 11:00 76 25 131/60 (83) 94 02/15/19 10:30 81 24 159/80 (106) 94 02/15/19 10:25 82 26 162/83 (109) 94 02/15/19 10:20 76 19 152/79 (103) 94 02/15/19 10:15 98.5 69 16 122/59 (80) 97 02/15/19 10:03 69 16 3.0 Labs: Laboratory Tests Test 02/15/19 15:20 White Blood Count 6.7 K/UL (4.8-10.8) Red Blood Count 3.15 M/UL (4.70-6.10) L Hemoglobin 9.4 G/DL (14.2-18.0) L Hematocrit 29.6 % (42.0-52.0) L Mean Corpuscular Volume 94 FL (80-99) Mean Corpuscular Hemoglobin 29.8 PG (27.0-31.0) Mean Corpuscular Hemoglobin Concent 31.7 G/DL (32.0-36.0) L Red Cell Distribution Width 17.9 % (11.6-14.8) H Platelet Count 103 K/UL (150-450) L Mean Platelet Volume 8.6 FL (6.5-10.1) Neutrophils (%) (Auto) 65.7 % (45.0-75.0) Lymphocytes (%) (Auto) 17.9 % (20.0-45.0) L Monocytes (%) (Auto) 9.4 % (1.0-10.0) Eosinophils (%) (Auto) 5.4 % (0.0-3.0) H Basophils (%) (Auto) 1.6 % (0.0-2.0) Sodium Level 146 MMOL/L (136-145) H Potassium Level 4.0 MMOL/L (3.5-5.1) Chloride Level 113 MMOL/L (98-107) H Carbon Dioxide Level 25 MMOL/L (21-32) Anion Gap 8 mmol/L (5-15) Blood Urea Nitrogen 51 mg/dL (7-18) H Creatinine 5.5 MG/DL (0.55-1.30) H Estimat Glomerular Filtration Rate 10.4 mL/min (>60) Glucose Level 153 MG/DL (74-106) H Calcium Level 6.6 MG/DL (8.5-10.1) L Objective: WDWN on o2 clear breath sounds bilaterally without rhonchi or wheeze [id number] without MRG NABS nontender no HSM no CC amputation nonfocal; alert Accucheck: 87 Theo Noriega MD Feb 16, 2019 09:06
[2019-02-16] MEDS ORDERED: NS 275ml ONE (10:29)
--- NOTE | 2019-02-16 11:04 | General Progress Note ---
Assessment/Plan Status: unchanged Assessment/Plan: Assessment - Resp failure - extubated - renal failures - anemia - amputations Recommendations Continue current meds wean off reglan follow CBC Elevate HOB PO as tolerated Subjective Allergies: Coded Allergies: No Known Allergies (Unverified , 09/25/17) Subjective above noted seen earlier today out of ICU awake, no complaints Objective Last 24 Hour Vital Signs Date Time Temp Pulse Resp B/P (MAP) Pulse Ox O2 Delivery O2 Flow Rate FiO2 02/16/19 09:00 Nasal Cannula 3.0 02/16/19 08:44 72 116/62 02/16/19 08:00 98.2 72 20 116/62 (80) 92 02/16/19 08:00 72 02/16/19 04:00 71 02/16/19 04:00 98.4 71 18 130/76 (94) 96 02/16/19 00:00 98.6 75 18 124/72 (89) 94 02/16/19 00:00 75 02/15/19 21:32 74 118/61 02/15/19 21:00 Nasal Cannula 3.0 02/15/19 20:00 72 02/15/19 20:00 98.4 72 18 114/54 (74) 94 02/15/19 19:00 72 23 118/61 (80) 94 02/15/19 18:02 71 26 81/48 (59) 92 02/15/19 17:00 73 26 114/50 (71) 92 02/15/19 17:00 Nasal Cannula 3.0 02/15/19 16:00 98.0 73 23 95/45 (62) 94 02/15/19 15:29 72 02/15/19 15:00 71 24 85/32 (49) 95 02/15/19 14:00 73 15 103/53 (70) 92 02/15/19 13:30 74 23 95/55 (68) 92 02/15/19 13:00 70 22 97/44 (61) 93 02/15/19 12:30 71 20 92/39 (56) 96 02/15/19 12:00 Nasal Cannula 3.0 02/15/19 12:00 75 02/15/19 12:00 98.3 72 23 116/48 (70) 95 02/15/19 11:00 76 25 131/60 (83) 94 Intake and Output 02/15/19 02/16/19 18:59 06:59 Intake Total 375 ml 0 ml Output Total 405 ml 200 ml Balance -30 ml -200 ml Intake Oral 320 ml 0 ml IV Total 55 ml Output Urine Total 405 ml 200 ml Stool Total 0 ml # Bowel Movements 2 Laboratory Tests 02/15/19 15:20: White Blood Count 6.7, Red Blood Count 3.15L, Hemoglobin 9.4L, Hematocrit 29.6L , Mean Corpuscular Volume 94, Mean Corpuscular Hemoglobin 29.8, Mean Corpuscular Hemoglobin Concent 31.7L, Red Cell Distribution Width 17.9H, Platelet Count 103L, Mean Platelet Volume 8.6, Neutrophils (%) (Auto) 65.7, Lymphocytes (%) (Auto) 17.9L, Monocytes (%) (Auto) 9.4, Eosinophils (%) (Auto) 5.4H, Basophils (%) (Auto) 1.6, Sodium Level 146H, Potassium Level 4.0, Chloride Level 113H, Carbon Dioxide Level 25, Anion Gap 8, Blood Urea Nitrogen 51H, Creatinine 5.5H, Estimat Glomerular Filtration Rate 10.4, Glucose Level 153H, Calcium Level 6.6L Height (Feet): 5 Height (Inches): 3.00 Weight (Pounds): 116 Objective Debilitated man NCAT supple CTA RRR abd soft ND ext:(+) amputations Elroy Wetzel MD Feb 16, 2019 11:04
--- NOTE | 2019-02-16 11:12 | Surgery Progress Note ---
Surgery Progress Note Subjective Procedure Performed removal right femoral temporary hemodialysis catheter Symptoms: improved Objective Last 24 Hour Vital Signs Date Time Temp Pulse Resp B/P (MAP) Pulse Ox O2 Delivery O2 Flow Rate FiO2 02/16/19 09:00 Nasal Cannula 3.0 02/16/19 08:44 72 116/62 02/16/19 08:00 98.2 72 20 116/62 (80) 92 02/16/19 08:00 72 02/16/19 04:00 71 02/16/19 04:00 98.4 71 18 130/76 (94) 96 02/16/19 00:00 98.6 75 18 124/72 (89) 94 02/16/19 00:00 75 02/15/19 21:32 74 118/61 02/15/19 21:00 Nasal Cannula 3.0 02/15/19 20:00 72 02/15/19 20:00 98.4 72 18 114/54 (74) 94 02/15/19 19:00 72 23 118/61 (80) 94 02/15/19 18:02 71 26 81/48 (59) 92 02/15/19 17:00 73 26 114/50 (71) 92 02/15/19 17:00 Nasal Cannula 3.0 02/15/19 16:00 98.0 73 23 95/45 (62) 94 02/15/19 15:29 72 02/15/19 15:00 71 24 85/32 (49) 95 02/15/19 14:00 73 15 103/53 (70) 92 02/15/19 13:30 74 23 95/55 (68) 92 02/15/19 13:00 70 22 97/44 (61) 93 02/15/19 12:30 71 20 92/39 (56) 96 02/15/19 12:00 Nasal Cannula 3.0 02/15/19 12:00 75 02/15/19 12:00 98.3 72 23 116/48 (70) 95 I&O Intake and Output 02/15/19 02/16/19 19:00 07:00 Intake Total 375 ml Output Total 365 ml 200 ml Balance 10 ml -200 ml Intake Oral 320 ml IV Total 55 ml Output Urine Total 365 ml 200 ml # Bowel Movements 2 Dressing: dry Wound: dry Drains: other Cardiovascular: RSR Respiratory: clear Abdomen: soft, present bowel sounds Extremities: no cyanosis Laboratory Tests Test 02/15/19 15:20 White Blood Count 6.7 K/UL (4.8-10.8) Red Blood Count 3.15 M/UL (4.70-6.10) L Hemoglobin 9.4 G/DL (14.2-18.0) L Hematocrit 29.6 % (42.0-52.0) L Mean Corpuscular Volume 94 FL (80-99) Mean Corpuscular Hemoglobin 29.8 PG (27.0-31.0) Mean Corpuscular Hemoglobin Concent 31.7 G/DL (32.0-36.0) L Red Cell Distribution Width 17.9 % (11.6-14.8) H Platelet Count 103 K/UL (150-450) L Mean Platelet Volume 8.6 FL (6.5-10.1) Neutrophils (%) (Auto) 65.7 % (45.0-75.0) Lymphocytes (%) (Auto) 17.9 % (20.0-45.0) L Monocytes (%) (Auto) 9.4 % (1.0-10.0) Eosinophils (%) (Auto) 5.4 % (0.0-3.0) H Basophils (%) (Auto) 1.6 % (0.0-2.0) Sodium Level 146 MMOL/L (136-145) H Potassium Level 4.0 MMOL/L (3.5-5.1) Chloride Level 113 MMOL/L (98-107) H Carbon Dioxide Level 25 MMOL/L (21-32) Anion Gap 8 mmol/L (5-15) Blood Urea Nitrogen 51 mg/dL (7-18) H Creatinine 5.5 MG/DL (0.55-1.30) H Estimat Glomerular Filtration Rate 10.4 mL/min (>60) Glucose Level 153 MG/DL (74-106) H Calcium Level 6.6 MG/DL (8.5-10.1) L Plan Problems: (1) ARDS (adult respiratory distress syndrome) (2) Anemia (3) Elevated troponin (4) MARY (acute kidney injury) (5) COPD with exacerbation (6) Abnormal LFTs Assessment & Plan: Abnormalities likely from shock liver. Gallbladder wall thickening nonspecific. Sonographic Rojas's is equivocal due to patient's condition. Trace ascites Bilateral pleural effusions. Suspected medical renal disease. Suspected nonobstructive stone in the right kidney. Trend labs Leukocytosis trending down Anemia LFTs normal now Improving (7) COPD (chronic obstructive pulmonary disease) (8) Respiratory distress (9) Pneumonia (10) HTN (hypertension) (11) Epileptic seizure, generalized (12) Shock liver Assessment & Plan: Shock liver likely from hypotension and cardiovascular arrest. Resuscitation with IV fluids ICU care and management Trend labs overall improving permacath fem line removed We will follow with recommendations (13) Suprapubic catheter Hari Batres Feb 16, 2019 11:12
[2019-02-16 12:00] VITALS: BP 130/60
[2019-02-16 16:00] VITALS: BP 129/60
--- NOTE | 2019-02-16 19:10 | NUR ---
HAND-OFF: Report given to YU Gomez. Plan of care endorsed
--- NOTE | 2019-02-16 19:15 | NUR ---
NURSE NOTES: Received report from Smita RN, pt. in bed awake, A/O x's 3-4- able to make needs known- Bulgarian speaker, no signs or symptoms of acute cardiac or respiratory distress noted, bed in lowest position and call light within easy reach, bed alarm on, side rails up x's3 and safety brakes engaged, pt. appears to be clean and dry- comfort measures provided, pt. appears to be sating well on 2L NC at 99%- no distress noted, pt. has supra pubic catheter intact and draining to gravity, Right upper chest PermCath intact for Hemodialysis, Left hand 24G IV intact and patent, safety measures continued, will continue with plan of care.
[2019-02-16 20:00] VITALS: BP 116/59
[2019-02-16] MEDS: Dyna-Hex 2% Top Sol 2oz TOPIC SCH (20:15)
--- NOTE | 2019-02-16 21:15 | Progress Note ---
DATE: 02/16/2019 SUBJECTIVE: The patient remains off ventilator support, in no respiratory distress. Monitored rhythm, sinus. Blood pressure parameters stable. He has a PermCath that was placed yesterday for hemodialysis. OBJECTIVE: VITAL SIGNS: Blood pressure 116/62, pulse 72, respirations 20, and afebrile. LUNGS: Bilateral breath sounds. HEART: Regular rhythm and rate. Normal S1 and S2. ABDOMEN: Soft. EXTREMITIES: No edema. PermCath site clean and dry. IMPRESSION: 1. Status post full arrest. 2. Acute non ST-elevation myocardial infarction. 3. Status post respiratory failure. 4. End-stage renal disease. 5. Peripheral artery disease with prior amputation. PLAN: 1. Hemodialysis with ultrafiltration for volume management. 2. Beta-blockade with titration as clinical parameters permit. 3. Anti-platelet therapy with aspirin. 4. Transition to oral therapy. Jamari Gale M.D. DR: MELODIE JOB#: [id number] CC:
[2019-02-17] VITALS: BP 134/67
[2019-02-17 04:00] VITALS: BP 129/74
[2019-02-17] MEDS: NovoLOG Insulin Flexpen SUBQ SCH ×4 (06:03→20:41)
--- NOTE | 2019-02-17 06:55 | NUR ---
HAND-OFF: Report given to Smita RN, pt. remains stable and no signs of distress noted.
--- NOTE | 2019-02-17 07:35 | NUR ---
NURSE NOTES: Received report from Nelson Gomez. Pt is sitting up in bed asking for coffee and wanting to go home. Pt is alert and oriented X4. No distress noted. Bed is in lowest position, side rails up X2, and call light is within reach. Will continue to monitor.
[2019-02-17 08:00] VITALS: BP 142/67
[2019-02-17] MEDS: Aspirin EC 81mg tab ORAL SCH (08:10)
[2019-02-17] MEDS: Heparin 5000 units/ml inj SUBQ SCH ×2 (08:16→20:41)
--- NOTE | 2019-02-17 08:48 | Critical Care Progress Note ---
Assessment/Plan Assessment/Plan Impression: Respiratory failure, acute Chronic Obstructive Pulmonary Disease with exacerbation Pneumonia Acute kidney injury, h/o Chronic Kidney Disease Elevated troponin Anemia Congestive Heart Failure Previous Atrial Fibrillation Coronary Artery Disease Hypertension Hyperlipidemia Diabetes Bilateral amputations GERD ETOH abuse Plan off vent dc planning HD nutrition impression, plan, and exam edited and reviewed in detail care discussed with small battery plate assembler - Subjective Condition: stable EKG Rhythm: Sinus Rhythm I&O: Intake and Output 02/16/19 02/17/19 19:00 07:00 Output Total 250 ml Balance -250 ml Output Urine Total 250 ml Critical Care - Objective ET-Tube: 7.5 ET Position: 23 Last 24 Hour Vital Signs Date Time Temp Pulse Resp B/P (MAP) Pulse Ox O2 Delivery O2 Flow Rate FiO2 02/17/19 08:18 97 Nasal Cannula 2.0 28 02/17/19 08:14 78 142/67 02/17/19 08:00 98.0 78 21 142/67 (92) 100 02/17/19 04:00 72 02/17/19 04:00 97.7 65 18 129/74 (92) 98 02/17/19 00:00 98.9 76 18 134/67 (89) 97 02/17/19 00:00 76 02/16/19 21:01 99 Nasal Cannula 2.0 28 02/16/19 21:01 81 18 99 Nasal Cannula 3.0 32 02/16/19 21:00 Nasal Cannula 3.0 02/16/19 20:20 76 116/59 02/16/19 20:00 99.0 76 18 116/59 (78) 99 02/16/19 20:00 71 02/16/19 16:00 74 02/16/19 16:00 98.8 77 20 129/60 (83) 100 02/16/19 12:00 69 02/16/19 12:00 98.2 77 20 130/60 (83) 96 02/16/19 09:00 Nasal Cannula 3.0 Objective: WDWN improved LOC clear breath sounds bilaterally without rhonchi or wheeze [id number] without MRG NABS nontender no HSM no CC amputation nonfocal; alert Accucheck: 82 Theo Noriega MD Feb 17, 2019 08:48
[2019-02-17] MEDS ORDERED: ASPIRIN EC81 MG ORAL (10:34)
[2019-02-17] MEDS ORDERED: ACETAMINOPHEN325 M1 ORAL (10:34)
[2019-02-17] MEDS ORDERED: CARVEDILOL3.125 MG ORAL (10:34)
[2019-02-17] MEDS ORDERED: NOVOLIN R100 UNIT/1 SUBQ ×2 (10:49→10:55)
[2019-02-17] MEDS ORDERED: LANSOPRAZOLE30 MG ORAL (10:49)
[2019-02-17] MEDS ORDERED: METOCLOPRAM5 MG/1 M1 IVP (10:50)
[2019-02-17] MEDS ORDERED: MAALOX MAXIMUM355 M1 PO (10:56)
--- NOTE | 2019-02-17 10:56 | Infectious Diseases Prog Note ---
Assessment/Plan Assessment/Plan A; Pneumonia treated Acute respiratory failure resolved DM with hyperglycemia CKD, acute renal failure, on HD Anemia Decreased albumin PAF Elevated troponin Diarrhea VRE carrier P; Observe off antibiotic Subjective ROS Limited/Unobtainable: Yes Constitutional: Reports: other - doing better, is out of ICU Respiratory: Reports: no symptoms Gastrointestinal/Abdominal: Reports: no symptoms Allergies: Coded Allergies: No Known Allergies (Unverified , 09/25/17) Objective Vital Signs Last 24 Hour Vital Signs Date Time Temp Pulse Resp B/P (MAP) Pulse Ox O2 Delivery O2 Flow Rate FiO2 02/17/19 09:00 Nasal Cannula 3.0 02/17/19 08:18 97 Nasal Cannula 2.0 28 02/17/19 08:14 78 142/67 02/17/19 08:00 98.0 78 21 142/67 (92) 100 02/17/19 08:00 74 02/17/19 04:00 72 02/17/19 04:00 97.7 65 18 129/74 (92) 98 02/17/19 00:00 98.9 76 18 134/67 (89) 97 02/17/19 00:00 76 02/16/19 21:01 99 Nasal Cannula 2.0 28 02/16/19 21:01 81 18 99 Nasal Cannula 3.0 32 02/16/19 21:00 Nasal Cannula 3.0 02/16/19 20:20 76 116/59 02/16/19 20:00 99.0 76 18 116/59 (78) 99 02/16/19 20:00 71 02/16/19 16:00 74 02/16/19 16:00 98.8 77 20 129/60 (83) 100 02/16/19 12:00 69 02/16/19 12:00 98.2 77 20 130/60 (83) 96 Height (Feet): 5 Height (Inches): 3.00 Weight (Pounds): 114 General Appearance: no acute distress HEENT: mucous membranes moist Respiratory/Chest: lungs clear Cardiovascular: normal rate, other - R permacath Abdomen: soft, non tender Extremities: no edema, other - bilateral BKA Skin: no rash Neurologic/Psychiatric: alert, responsive Current Medications Medications (Trade) Dose Ordered Sig/Joe Route PRN Reason Start Time Stop Time Status Last Admin Dose Admin Acetaminophen (Tylenol) 650 mg Q4H PRN ORAL Mild Pain/Temp > 100.5 02/16/19 09:00 03/13/19 20:59 Al Hydroxide/Mg Hydroxide (Mylanta) 30 ml PRN ORAL 02/15/19 21:00 03/17/19 20:59 Aspirin (Ecotrin) 81 mg DAILY ORAL 02/16/19 09:00 03/18/19 08:59 02/17/19 08:10 Carvedilol (Coreg) 3.125 mg EVERY 12 HOURS ORAL 02/16/19 09:00 03/14/19 08:59 02/17/19 08:14 Chlorhexidine Gluconate (Falguni-Hex 2%) 1 applic DAILY@1999 TOPIC 02/16/19 20:00 03/08/19 19:59 02/16/19 20:15 Dextrose (Dextrose 50%) 25 ml Q30M PRN IV Hypoglycemia 02/15/19 21:00 03/08/19 11:29 Dextrose (Dextrose 50%) 50 ml Q30M PRN IV Hypoglycemia 02/15/19 21:00 03/08/19 11:29 Epoetin Mayo (Epoetin Mayo(ESRD on dialysis)) 10,000 unit MON-MON-MON SUBQ 02/15/19 21:00 03/08/19 20:59 02/15/19 21:32 Heparin Sodium (Porcine) (Heparin 5000 units/ml) 5,000 units EVERY 12 HOURS SUBQ 02/16/19 09:00 03/08/19 08:59 02/17/19 08:16 Insulin Aspart (NovoLOG) AC+HS SUBQ 02/15/19 22:00 03/08/19 21:59 02/16/19 17:28 Lansoprazole (Prevacid) 30 mg DAILY ORAL 02/16/19 09:00 03/08/19 08:59 02/17/19 08:10 Metoclopramide HCl (Reglan) 5 mg Q6H PRN IVP Nausea & Vomiting 02/15/19 21:00 03/17/19 20:59 Emir Madsen MD Feb 17, 2019 10:56
[2019-02-17 12:00] VITALS: BP 121/57
--- NOTE | 2019-02-17 12:09 | General Progress Note ---
Assessment/Plan Status: unchanged Assessment/Plan: Assessment - Resp failure - extubated - renal failures - anemia - amputations Recommendations Continue current meds wean off reglan follow CBC Elevate HOB PO as tolerated Subjective Allergies: Coded Allergies: No Known Allergies (Unverified , 09/25/17) Subjective above noted eating OK no abd c/o Objective Last 24 Hour Vital Signs Date Time Temp Pulse Resp B/P (MAP) Pulse Ox O2 Delivery O2 Flow Rate FiO2 02/17/19 09:00 Nasal Cannula 3.0 02/17/19 08:18 97 Nasal Cannula 2.0 28 02/17/19 08:14 78 142/67 02/17/19 08:00 98.0 78 21 142/67 (92) 100 02/17/19 08:00 74 02/17/19 04:00 72 02/17/19 04:00 97.7 65 18 129/74 (92) 98 02/17/19 00:00 98.9 76 18 134/67 (89) 97 02/17/19 00:00 76 02/16/19 21:01 99 Nasal Cannula 2.0 28 02/16/19 21:01 81 18 99 Nasal Cannula 3.0 32 02/16/19 21:00 Nasal Cannula 3.0 02/16/19 20:20 76 116/59 02/16/19 20:00 99.0 76 18 116/59 (78) 99 02/16/19 20:00 71 02/16/19 16:00 74 02/16/19 16:00 98.8 77 20 129/60 (83) 100 Intake and Output 02/16/19 02/17/19 19:00 07:00 Output Total 250 ml Balance -250 ml Output Urine Total 250 ml Height (Feet): 5 Height (Inches): 3.00 Weight (Pounds): 114 Objective Debilitated man NCAT supple CTA RRR abd soft ND ext:(+) amputations Elroy Wetzel MD Feb 17, 2019 12:09
--- NOTE | 2019-02-17 12:15 | Surgery Progress Note ---
Surgery Progress Note Subjective Procedure Performed removal right femoral temporary hemodialysis catheter Symptoms: improved Objective Last 24 Hour Vital Signs Date Time Temp Pulse Resp B/P (MAP) Pulse Ox O2 Delivery O2 Flow Rate FiO2 02/17/19 12:00 98.5 76 22 121/57 (78) 93 02/17/19 09:00 Nasal Cannula 3.0 02/17/19 08:18 97 Nasal Cannula 2.0 28 02/17/19 08:14 78 142/67 02/17/19 08:00 98.0 78 21 142/67 (92) 100 02/17/19 08:00 74 02/17/19 04:00 72 02/17/19 04:00 97.7 65 18 129/74 (92) 98 02/17/19 00:00 98.9 76 18 134/67 (89) 97 02/17/19 00:00 76 02/16/19 21:01 99 Nasal Cannula 2.0 28 02/16/19 21:01 81 18 99 Nasal Cannula 3.0 32 02/16/19 21:00 Nasal Cannula 3.0 02/16/19 20:20 76 116/59 02/16/19 20:00 99.0 76 18 116/59 (78) 99 02/16/19 20:00 71 02/16/19 16:00 74 02/16/19 16:00 98.8 77 20 129/60 (83) 100 I&O Intake and Output 02/16/19 02/17/19 19:00 07:00 Output Total 250 ml Balance -250 ml Output Urine Total 250 ml Dressing: dry Wound: clean Cardiovascular: RSR Respiratory: clear Abdomen: soft, present bowel sounds Extremities: no cyanosis, other Plan Problems: (1) ARDS (adult respiratory distress syndrome) (2) Anemia (3) Elevated troponin (4) MARY (acute kidney injury) (5) COPD with exacerbation (6) Abnormal LFTs Assessment & Plan: Abnormalities likely from shock liver. Gallbladder wall thickening nonspecific. Sonographic Rojas's is equivocal due to patient's condition. Trace ascites Bilateral pleural effusions. Suspected medical renal disease. Suspected nonobstructive stone in the right kidney. Trend labs Leukocytosis trending down Anemia LFTs normal now Improving (7) COPD (chronic obstructive pulmonary disease) (8) Respiratory distress (9) Pneumonia (10) HTN (hypertension) (11) Epileptic seizure, generalized (12) Shock liver Assessment & Plan: Shock liver likely from hypotension and cardiovascular arrest. Resuscitation with IV fluids ICU care and management Trend labs overall improving permacath fem line removed We will follow with recommendations (13) Suprapubic catheter Hari Batres Feb 17, 2019 12:15
--- NOTE | 2019-02-17 15:36 | Hematology/Onc Progress Note ---
Assessment/Plan Assessment/Plan Assessment and Recs: # Anemia of chronic disease due to underlying chronic medical issues, multifactorial --> Anemia workup has been ordered, rule out gi bleed --> No evidence of hemolysis is noted, peripheral smear has been reviewed. --> Hgb goal >7. Transfuse prn. --> Epogen and iron both started given ckd, ferritin only 274 (needs to be >500 for esrd pts) --> Medications have been reviewed --> low threshold for gi evaluation in case has occult + --> hgb trend 9.9-->9.4-->9.1-->9->9.4 # Leukocytosis/elevated white blood cell count, unspecified likely related to underlying stress reaction, pna, ARDS --> have reviewed peripheral smear and bandemia/neutrophilia noted --> continue antibiotics if they have been started by ID team --> 23-->17-->20k-->18k-->12-->11 # Thrombocytopenia - potential causes multifactorial, evaluate liver and viral etiologies to begin, also could be related to underlying medications patient has received. may be due to Hep C++ (need to confirm) --> Hep panel shows HEPATITIS C++ and HIV is negative --> US abd shows e/o trace ascites --> Peripheral smear ordered to evaluate for blasts /schistocytes is neg --> abx and other meds have been reviewed --> ok for ppx if plt >50k w/ either heparin or lovenox --> trend 90k-->104k->103k # Respiratory distress with ards --> initially intubated, on a vent --> as per pulm/cc recs -> EXTUBATED NOW # Chronic Obstructive Pulmonary Disease with exacerbation --> breathing treatments on prn basis --> steriods as needed # Pneumonia --> on abx per id # ESRD - STARTED HD via femoral Junior. ++ PermaCath + AVF. --> hd per renal --> hd on 02/11 # Elevated troponin can be renal related --> per cards, r/o acs # Bilateral amputations # GERD # ETOH abuse The timing of this note does not necessarily reflect the time of the patient was seen. Greatly appreciate consultation! Subjective Constitutional: Denies: no symptoms, chills, fever, malaise, weakness, other HEENT: Denies: no symptoms, eye pain, blurred vision, tearing, double vision, ear pain, ear discharge, nose pain, nose congestion, throat pain, throat swelling, mouth pain, mouth swelling, other Genitourinary: Denies: no symptoms, burning, discharge, frequency, flank pain, hematuria, incontinence, pain, urgency, other Hematologic/Lymphatic: Reports: no symptoms Allergies: Coded Allergies: No Known Allergies (Unverified , 09/25/17) Subjective 02/08: is on jose and vanc, broad spectrum abx, no f/c, vent adjusted per pulm 02/10: given k, remains on vent, in icu, vent weaning pending 02/11: no events noted, no f/c, remains in icu, is on vent 02/12: no events, labs reviewed, permacath for tomorrow, intub 02/13: permacath procedure pending, currently on hold, to get bioethics consult 02/14: extubated, looking better, no f/c, needing permacath 02/15: plt stable, no fevers, is on 3l nc, icu 02/17: getting hd prn, feeling better, no f/c, no events noted Objective Objective Current Medications Medications (Trade) Dose Ordered Sig/Joe Route PRN Reason Start Time Stop Time Status Last Admin Dose Admin Acetaminophen (Tylenol) 650 mg Q4H PRN ORAL Mild Pain/Temp > 100.5 02/16/19 09:00 03/13/19 20:59 Al Hydroxide/Mg Hydroxide (Mylanta) 30 ml PRN ORAL 02/15/19 21:00 03/17/19 20:59 Aspirin (Ecotrin) 81 mg DAILY ORAL 02/16/19 09:00 03/18/19 08:59 02/17/19 08:10 Carvedilol (Coreg) 3.125 mg EVERY 12 HOURS ORAL 02/16/19 09:00 03/14/19 08:59 02/17/19 08:14 Chlorhexidine Gluconate (Falguni-Hex 2%) 1 applic DAILY@1999 TOPIC 02/16/19 20:00 03/08/19 19:59 02/16/19 20:15 Dextrose (Dextrose 50%) 25 ml Q30M PRN IV Hypoglycemia 02/15/19 21:00 03/08/19 11:29 Dextrose (Dextrose 50%) 50 ml Q30M PRN IV Hypoglycemia 02/15/19 21:00 03/08/19 11:29 Epoetin Mayo (Epoetin Mayo(ESRD on dialysis)) 10,000 unit MON-MON-MON SUBQ 02/15/19 21:00 03/08/19 20:59 02/15/19 21:32 Heparin Sodium (Porcine) (Heparin 5000 units/ml) 5,000 units EVERY 12 HOURS SUBQ 02/16/19 09:00 03/08/19 08:59 02/17/19 08:16 Insulin Aspart (NovoLOG) AC+HS SUBQ 02/15/19 22:00 03/08/19 21:59 02/16/19 17:28 Lansoprazole (Prevacid) 30 mg DAILY ORAL 02/16/19 09:00 03/08/19 08:59 02/17/19 08:10 Metoclopramide HCl (Reglan) 5 mg Q6H PRN IVP Nausea & Vomiting 02/15/19 21:00 03/17/19 20:59 Last 24 Hour Vital Signs Date Time Temp Pulse Resp B/P (MAP) Pulse Ox O2 Delivery O2 Flow Rate FiO2 02/17/19 12:00 75 02/17/19 12:00 98.5 76 22 121/57 (78) 93 02/17/19 09:00 Nasal Cannula 3.0 02/17/19 08:18 97 Nasal Cannula 2.0 28 02/17/19 08:14 78 142/67 02/17/19 08:00 98.0 78 21 142/67 (92) 100 02/17/19 08:00 74 02/17/19 04:00 72 02/17/19 04:00 97.7 65 18 129/74 (92) 98 02/17/19 00:00 98.9 76 18 134/67 (89) 97 02/17/19 00:00 76 02/16/19 21:01 99 Nasal Cannula 2.0 28 02/16/19 21:01 81 18 99 Nasal Cannula 3.0 32 02/16/19 21:00 Nasal Cannula 3.0 02/16/19 20:20 76 116/59 02/16/19 20:00 99.0 76 18 116/59 (78) 99 02/16/19 20:00 71 02/16/19 16:00 74 02/16/19 16:00 98.8 77 20 129/60 (83) 100 02/16/19 12:00 69 02/16/19 12:00 98.2 77 20 130/60 (83) 96 02/16/19 09:00 Nasal Cannula 3.0 02/16/19 08:44 72 116/62 02/16/19 08:00 98.2 72 20 116/62 (80) 92 02/16/19 08:00 72 02/16/19 04:00 71 02/16/19 04:00 98.4 71 18 130/76 (94) 96 02/16/19 00:00 98.6 75 18 124/72 (89) 94 02/16/19 00:00 75 02/15/19 21:32 74 118/61 02/15/19 21:00 Nasal Cannula 3.0 02/15/19 20:00 72 02/15/19 20:00 98.4 72 18 114/54 (74) 94 02/15/19 19:00 72 23 118/61 (80) 94 02/15/19 18:02 71 26 81/48 (59) 92 02/15/19 17:00 73 26 114/50 (71) 92 02/15/19 17:00 Nasal Cannula 3.0 02/15/19 16:00 98.0 73 23 95/45 (62) 94 Intake and Output 02/16/19 02/17/19 18:59 06:59 Output Total 250 ml Balance -250 ml Output Urine Total 250 ml Labs Test 02/14/19 17:55 02/15/19 15:20 White Blood Count 8.2 K/UL (4.8-10.8) 6.7 K/UL (4.8-10.8) Red Blood Count 2.94 M/UL (4.70-6.10) 3.15 M/UL (4.70-6.10) Hemoglobin 8.7 G/DL (14.2-18.0) 9.4 G/DL (14.2-18.0) Hematocrit 27.3 % (42.0-52.0) 29.6 % (42.0-52.0) Mean Corpuscular Volume 93 FL (80-99) 94 FL (80-99) Mean Corpuscular Hemoglobin 29.6 PG (27.0-31.0) 29.8 PG (27.0-31.0) Mean Corpuscular Hemoglobin Concent 31.9 G/DL (32.0-36.0) 31.7 G/DL (32.0-36.0) Red Cell Distribution Width 18.0 % (11.6-14.8) 17.9 % (11.6-14.8) Platelet Count 92 K/UL (150-450) 103 K/UL (150-450) Mean Platelet Volume 9.2 FL (6.5-10.1) 8.6 FL (6.5-10.1) Neutrophils (%) (Auto) % (45.0-75.0) 65.7 % (45.0-75.0) Lymphocytes (%) (Auto) % (20.0-45.0) 17.9 % (20.0-45.0) Monocytes (%) (Auto) % (1.0-10.0) 9.4 % (1.0-10.0) Eosinophils (%) (Auto) % (0.0-3.0) 5.4 % (0.0-3.0) Basophils (%) (Auto) % (0.0-2.0) 1.6 % (0.0-2.0) Differential Total Cells Counted 100 Neutrophils % (Manual) 78 % (45-75) Lymphocytes % (Manual) 10 % (20-45) Monocytes % (Manual) 5 % (1-10) Eosinophils % (Manual) 6 % (0-3) Basophils % (Manual) 1 % (0-2) Band Neutrophils 0 % (0-8) Platelet Estimate Decreased Platelet Morphology Normal Hypochromasia 2+ Anisocytosis 2+ Sodium Level 146 MMOL/L (136-145) Potassium Level 4.0 MMOL/L (3.5-5.1) Chloride Level 113 MMOL/L (98-107) Carbon Dioxide Level 25 MMOL/L (21-32) Anion Gap 8 mmol/L (5-15) Blood Urea Nitrogen 51 mg/dL (7-18) Creatinine 5.5 MG/DL (0.55-1.30) Estimat Glomerular Filtration Rate 10.4 mL/min (>60) Glucose Level 153 MG/DL (74-106) Calcium Level 6.6 MG/DL (8.5-10.1) Height (Feet): 5 Height (Inches): 3.00 Weight (Pounds): 114 Objective PE Gen: fatigued, on mechanical ventilator Eyes: bilateral eye PERRL, b/l eye EOMI Respiratory: Bilateral wheezing, rhonchi now off vent since 02/13 Cardiovascular: normal heart sound, normal peripheral pulses, rrr GI: non tender, soft, no guarding, no rebound ++ peg Msk normal inspection Neuro: sedated, no focal signs Skin: no rash, warm/dry Nicho Rebolledo MD Feb 17, 2019 15:36
[2019-02-17] MEDS ORDERED: Sodium Bicarbonate 8.4% 50ml Inj ONE (15:37)
--- NOTE | 2019-02-17 16:37 | NUR ---
NURSE NOTES: Pt does not want insulin coverage. He states that 157 is not bad. Pt is irate and wants to go back to [facility] because this place is "worse than a senior care" because he is not able to go outside or eat in a common area.
[2019-02-17 17:08] LABS: BASOPHILS % (AUTO) 1.2 % (0.0-2.0); EOSINOPHILS % (AUTO) 3.9 % (0.0-3.0); HEMATOCRIT 35.3 % (42.0-52.0); HEMOGLOBIN 11.3 G/DL (14.2-18.0); LYMPHOCYTES % (AUTO) 22.3 % (20.0-45.0); MEAN CORPUSCULAR VOLUME 92 FL (80-99); MONOCYTES % (AUTO) 8.2 % (1.0-10.0); NEUTROPHILS % (AUTO) 64.5 % (45.0-75.0); PLATELET COUNT 128 K/UL (150-450); RED BLOOD COUNT 3.85 M/UL (4.70-6.10); RED CELL DISTRIBUTION WIDTH 17.2 % (11.6-14.8); WHITE BLOOD COUNT 5.7 K/UL (4.8-10.8)
--- NOTE | 2019-02-17 19:34 | NUR ---
HAND-OFF: Report given to griselda BRUMFIELD. Plan of care endorsed. .
--- NOTE | 2019-02-17 19:35 | NUR ---
NURSE NOTES: Received bedside report from YU Ordoñez.Patient stable, bed bound w/BKA,A&Ox 3-4 forgetful,Syriac speaking only,SR on hall monitor,no c/o pain,no respiratory distress at this moment,tolerated well N/C with 2 L/min,pt new diagnosed with ESRD and last out put 2 L at HD on Monday,pt has no IV access,removed by himself, aware,pt ready to D/C back to facility in a morning,RU chest permacath inserted 02/15/19 for dialysis only, intact.Bed secured in a low safety position,call light within a reach,will continue to monitor and follow POC.
[2019-02-17 20:00] VITALS: BP 146/77
[2019-02-17] MEDS: Dyna-Hex 2% Top Sol 2oz TOPIC SCH (20:38)
[2019-02-18] VITALS: BP 144/72
--- NOTE | 2019-02-18 01:15 | Progress Note ---
DATE: 02/17/2019 CARDIOLOGY PROGRESS NOTE SUBJECTIVE: The patient remains on ventilator support. No respiratory distress. Tolerating intake. OBJECTIVE: VITAL SIGNS: Blood pressure 142/67, pulse 78, respirations 21, and afebrile. LUNGS: Bilateral breath sounds. No wheezing. A few rhonchi. HEART: Regular rhythm and rate. Normal S1 and S2 with a fourth heart sound. ABDOMEN: Soft and nontender. No edema. PermCath site clean and dry. LABORATORY DATA: White count 5.7 and hemoglobin 11. Potassium 4, sodium 146, bicarbonate 25, BUN 51, and creatinine 5.5 on 02/15/2019. IMPRESSION: 1. Status post full arrest. 2. [id number] myocardial infarction. 3. Status post respiratory failure. 4. End-stage renal disease, now on hemodialysis. 5. Dehydration. 6. Hyponatremia, improving. 7. Hypokalemia, resolved. 8. Severe protein-calorie malnutrition. PLAN: 1. Hemodialysis with ultrafiltration for volume management. 2. Nutritional support with supplement. 3. Respiratory hygiene. 4. Continue beta-artis and anti-platelet therapy with aspirin with dose titration as appropriate on the former. Jamari Gale M.D. DR: YUAN JOB#: [id number] CC:
[2019-02-18 04:00] VITALS: BP 139/68
[2019-02-18] MEDS: NovoLOG Insulin Flexpen SUBQ SCH ×3 (06:27→16:30)
--- NOTE | 2019-02-18 07:11 | NUR ---
HAND-OFF: Report given to YU Adams.Patient stable.
--- NOTE | 2019-02-18 07:33 | NUR ---
NURSE NOTES: Received report from YU Munguia. Patient is resting in bed, in stable condition. No s/sx of SOB, breathing is even and unlabored. Bed is in lowest position, brakes engaged. Call light is kept within easy reach. Will continue to monitor patient.
[2019-02-18 08:00] VITALS: BP 104/57
--- NOTE | 2019-02-18 08:24 | NUR ---
NURSE NOTES: Received call from Dr. Quezada. In regards to new hemodialysis order for today, per Dr. Quezada will be coming in to input it. Noted. Will continue to monitor patient.
[2019-02-18] MEDS: Heparin 5000 units/ml inj SUBQ SCH (08:35)
[2019-02-18] MEDS: Aspirin EC 81mg tab ORAL SCH (08:35)
--- NOTE | 2019-02-18 09:39 | Critical Care Progress Note ---
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 - Subjective Condition: stable EKG Rhythm: Sinus Rhythm I&O: Intake and Output 02/17/19 02/18/19 19:00 07:00 Intake Total 655 ml 360 ml Output Total 1810 ml 300 ml Balance -1155 ml 60 ml Intake Oral 0 ml 360 ml Free Water 40 ml Tube Feeding 35 ml Blood Product 50 ml Hemodialysis 500 ml Other 30 ml Output Urine Total 250 ml 300 ml Stool Total 0 ml Gastric Drainage Total 60 ml Hemodialysis UF 1500 ml # Voids 1 1 # Bowel Movements 1 1 Critical Care - Objective ET-Tube: 7.5 ET Position: 23 Last 24 Hour Vital Signs Date Time Temp Pulse Resp B/P (MAP) Pulse Ox O2 Delivery O2 Flow Rate FiO2 02/18/19 09:00 Nasal Cannula 3.0 02/18/19 08:00 97.7 77 23 104/57 (73) 97 02/18/19 04:00 98.3 86 17 139/68 (91) 95 02/18/19 00:00 98.3 84 17 144/72 (96) 96 02/17/19 21:00 Nasal Cannula 3.0 02/17/19 20:39 89 146/77 02/17/19 20:00 98.2 81 18 146/77 (100) 96 02/17/19 20:00 72 02/17/19 19:00 97 Nasal Cannula 2.0 28 02/17/19 16:00 76 02/17/19 12:00 75 02/17/19 12:00 98.5 76 22 121/57 (78) 93 Labs: Laboratory Tests Test 02/17/19 16:20 White Blood Count 5.7 K/UL (4.8-10.8) Red Blood Count 3.85 M/UL (4.70-6.10) L Hemoglobin 11.3 G/DL (14.2-18.0) L Hematocrit 35.3 % (42.0-52.0) L Mean Corpuscular Volume 92 FL (80-99) Mean Corpuscular Hemoglobin 29.5 PG (27.0-31.0) Mean Corpuscular Hemoglobin Concent 32.2 G/DL (32.0-36.0) Red Cell Distribution Width 17.2 % (11.6-14.8) H Platelet Count 128 K/UL (150-450) L Mean Platelet Volume 9.1 FL (6.5-10.1) Neutrophils (%) (Auto) 64.5 % (45.0-75.0) Lymphocytes (%) (Auto) 22.3 % (20.0-45.0) Monocytes (%) (Auto) 8.2 % (1.0-10.0) Eosinophils (%) (Auto) 3.9 % (0.0-3.0) H Basophils (%) (Auto) 1.2 % (0.0-2.0) Objective: WDWN on o2 clear breath sounds bilaterally without rhonchi or wheeze [id number] without MRG NABS nontender no HSM no CC amputation nonfocal; alert Accucheck: 152 Theo Noriega MD Feb 18, 2019 09:39
--- NOTE | 2019-02-18 10:11 | Hematology/Onc Progress Note ---
Assessment/Plan Assessment/Plan Assessment and Recs: # Anemia of chronic disease due to underlying chronic medical issues, multifactorial --> Anemia workup has been ordered, rule out gi bleed --> No evidence of hemolysis is noted, peripheral smear has been reviewed. --> Hgb goal >7. Transfuse prn. --> Epogen and iron both started given ckd, ferritin only 274 (needs to be >500 for esrd pts) --> Medications have been reviewed --> low threshold for gi evaluation in case has occult + --> hgb trend 9.9-->9.4-->9.1-->9->9.4->11.3 # Leukocytosis/elevated white blood cell count, unspecified likely related to underlying stress reaction, pna, ARDS --> have reviewed peripheral smear and bandemia/neutrophilia noted --> continue antibiotics if they have been started by ID team --> 23-->17-->20k-->18k-->12-->11 # Thrombocytopenia - potential causes multifactorial, evaluate liver and viral etiologies to begin, also could be related to underlying medications patient has received. may be due to Hep C++ (need to confirm) --> Hep panel shows HEPATITIS C++ and HIV is negative --> US abd shows e/o trace ascites --> Peripheral smear ordered to evaluate for blasts /schistocytes is neg --> abx and other meds have been reviewed --> ok for ppx if plt >50k w/ either heparin or lovenox --> trend 90k-->104k->103k-->128k # Respiratory distress with ards --> initially intubated, on a vent --> as per pulm/cc recs -> EXTUBATED NOW # Chronic Obstructive Pulmonary Disease with exacerbation --> breathing treatments on prn basis --> steriods as needed # Pneumonia --> on abx per id # ESRD - STARTED HD via femoral Junior. ++ PermaCath + AVF. --> hd per renal --> hd on 02/11, continue 3x a week with Dr. Quezada # Elevated troponin can be renal related --> per cards, r/o acs # Bilateral amputations # GERD # ETOH abuse The timing of this note does not necessarily reflect the time of the patient was seen. Greatly appreciate consultation! Subjective Constitutional: Denies: no symptoms, chills, fever, malaise, weakness, other HEENT: Denies: no symptoms, eye pain, blurred vision, tearing, double vision, ear pain, ear discharge, nose pain, nose congestion, throat pain, throat swelling, mouth pain, mouth swelling, other Cardiovascular: Denies: no symptoms, chest pain, edema, irregular heart rate, lightheadedness, palpitations, syncope, other Respiratory: Denies: no symptoms, cough, shortness of breath, SOB with excertion, SOB at rest, sputum, wheezing, other Gastrointestinal/Abdominal: Denies: no symptoms, abdomen distended, abdominal pain, black stools, tarry stools, blood in stool, constipated, diarrhea, difficulty swallowing, nausea, poor appetite, poor fluid intake, rectal bleeding , vomiting, other Endocrine: Denies: no symptoms, excessive sweating, flushing, intolerance to cold, intolerance to heat, increased hunger, increased thirst, increased urine, unexplained weight gain, unexplained weight loss, other Allergies: Coded Allergies: No Known Allergies (Unverified , 09/25/17) Subjective 02/08: is on jose and vanc, broad spectrum abx, no f/c, vent adjusted per pulm 02/10: given k, remains on vent, in icu, vent weaning pending 02/11: no events noted, no f/c, remains in icu, is on vent 02/12: no events, labs reviewed, permacath for tomorrow, intub 02/13: permacath procedure pending, currently on hold, to get bioethics consult 02/14: extubated, looking better, no f/c, needing permacath 02/15: plt stable, no fevers, is on 3l nc, icu 02/17: getting hd prn, feeling better, no f/c, no events noted 02/18: potential hd for today, labs reviewed, plt is better Objective Objective Current Medications Medications (Trade) Dose Ordered Sig/Joe Route PRN Reason Start Time Stop Time Status Last Admin Dose Admin Acetaminophen (Tylenol) 650 mg Q4H PRN ORAL Mild Pain/Temp > 100.5 02/16/19 09:00 03/13/19 20:59 Al Hydroxide/Mg Hydroxide (Mylanta) 30 ml PRN ORAL 02/15/19 21:00 03/17/19 20:59 Aspirin (Ecotrin) 81 mg DAILY ORAL 02/16/19 09:00 03/18/19 08:59 02/18/19 08:35 Carvedilol (Coreg) 6.25 mg EVERY 12 HOURS ORAL 02/18/19 09:00 03/20/19 08:59 Chlorhexidine Gluconate (Falguni-Hex 2%) 1 applic DAILY@2000 TOPIC 02/16/19 20:00 03/08/19 19:59 02/17/19 20:38 Dextrose (Dextrose 50%) 25 ml Q30M PRN IV Hypoglycemia 02/15/19 21:00 03/08/19 11:29 Dextrose (Dextrose 50%) 50 ml Q30M PRN IV Hypoglycemia 02/15/19 21:00 03/08/19 11:29 Epoetin Mayo (Epoetin Mayo(ESRD on dialysis)) 10,000 unit MON-MON-MON SUBQ 02/15/19 21:00 03/08/19 20:59 02/15/19 21:32 Heparin Sodium (Porcine) (Heparin 5000 units/ml) 5,000 units EVERY 12 HOURS SUBQ 02/16/19 09:00 03/08/19 08:59 02/17/19 20:41 Insulin Aspart (NovoLOG) AC+HS SUBQ 02/15/19 22:00 03/08/19 21:59 02/18/19 06:27 Lansoprazole (Prevacid) 30 mg DAILY ORAL 02/16/19 09:00 03/08/19 08:59 02/18/19 08:34 Metoclopramide HCl (Reglan) 5 mg Q6H PRN IVP Nausea & Vomiting 02/15/19 21:00 03/17/19 20:59 Last 24 Hour Vital Signs Date Time Temp Pulse Resp B/P (MAP) Pulse Ox O2 Delivery O2 Flow Rate FiO2 02/18/19 09:00 Nasal Cannula 3.0 02/18/19 08:00 97.7 77 23 104/57 (73) 97 02/18/19 04:00 98.3 86 17 139/68 (91) 95 02/18/19 00:00 98.3 84 17 144/72 (96) 96 02/17/19 21:00 Nasal Cannula 3.0 8/11/19 20:39 89 146/77 02/17/19 20:00 98.2 81 18 146/77 (100) 96 02/17/19 20:00 72 02/17/19 19:00 97 Nasal Cannula 2.0 28 02/17/19 16:00 76 02/17/19 12:00 75 02/17/19 12:00 98.5 76 22 121/57 (78) 93 02/17/19 09:00 Nasal Cannula 3.0 02/17/19 08:18 97 Nasal Cannula 2.0 28 02/17/19 08:14 78 142/67 02/17/19 08:00 98.0 78 21 142/67 (92) 100 02/17/19 08:00 74 02/17/19 04:00 72 02/17/19 04:00 97.7 65 18 129/74 (92) 98 02/17/19 00:00 98.9 76 18 134/67 (89) 97 02/17/19 00:00 76 02/16/19 21:01 99 Nasal Cannula 2.0 28 02/16/19 21:01 81 18 99 Nasal Cannula 3.0 32 02/16/19 21:00 Nasal Cannula 3.0 02/16/19 20:20 76 116/59 02/16/19 20:00 99.0 76 18 116/59 (78) 99 02/16/19 20:00 71 02/16/19 16:00 74 02/16/19 16:00 98.8 77 20 129/60 (83) 100 02/16/19 12:00 69 02/16/19 12:00 98.2 77 20 130/60 (83) 96 Intake and Output 02/17/19 02/18/19 19:00 07:00 Intake Total 655 ml 360 ml Output Total 1810 ml 300 ml Balance -1155 ml 60 ml Intake Oral 0 ml 360 ml Free Water 40 ml Tube Feeding 35 ml Blood Product 50 ml Hemodialysis 500 ml Other 30 ml Output Urine Total 250 ml 300 ml Stool Total 0 ml Gastric Drainage Total 60 ml Hemodialysis UF 1500 ml # Voids 1 1 # Bowel Movements 1 1 Labs Test 02/15/19 15:20 02/17/19 16:20 White Blood Count 6.7 K/UL (4.8-10.8) 5.7 K/UL (4.8-10.8) Red Blood Count 3.15 M/UL (4.70-6.10) 3.85 M/UL (4.70-6.10) Hemoglobin 9.4 G/DL (14.2-18.0) 11.3 G/DL (14.2-18.0) Hematocrit 29.6 % (42.0-52.0) 35.3 % (42.0-52.0) Mean Corpuscular Volume 94 FL (80-99) 92 FL (80-99) Mean Corpuscular Hemoglobin 29.8 PG (27.0-31.0) 29.5 PG (27.0-31.0) Mean Corpuscular Hemoglobin Concent 31.7 G/DL (32.0-36.0) 32.2 G/DL (32.0-36.0) Red Cell Distribution Width 17.9 % (11.6-14.8) 17.2 % (11.6-14.8) Platelet Count 103 K/UL (150-450) 128 K/UL (150-450) Mean Platelet Volume 8.6 FL (6.5-10.1) 9.1 FL (6.5-10.1) Neutrophils (%) (Auto) 65.7 % (45.0-75.0) 64.5 % (45.0-75.0) Lymphocytes (%) (Auto) 17.9 % (20.0-45.0) 22.3 % (20.0-45.0) Monocytes (%) (Auto) 9.4 % (1.0-10.0) 8.2 % (1.0-10.0) Eosinophils (%) (Auto) 5.4 % (0.0-3.0) 3.9 % (0.0-3.0) Basophils (%) (Auto) 1.6 % (0.0-2.0) 1.2 % (0.0-2.0) Sodium Level 146 MMOL/L (136-145) Potassium Level 4.0 MMOL/L (3.5-5.1) Chloride Level 113 MMOL/L (98-107) Carbon Dioxide Level 25 MMOL/L (21-32) Anion Gap 8 mmol/L (5-15) Blood Urea Nitrogen 51 mg/dL (7-18) Creatinine 5.5 MG/DL (0.55-1.30) Estimat Glomerular Filtration Rate 10.4 mL/min (>60) Glucose Level 153 MG/DL (74-106) Calcium Level 6.6 MG/DL (8.5-10.1) Height (Feet): 5 Height (Inches): 3.00 Weight (Pounds): 107 Objective PE Gen: fatigued, on mechanical ventilator Eyes: bilateral eye PERRL, b/l eye EOMI Respiratory: Bilateral wheezing, rhonchi now off vent since 02/13 Cardiovascular: normal heart sound, normal peripheral pulses, rrr GI: non tender, soft, no guarding, no rebound ++ peg Msk normal inspection Neuro: sedated, no focal signs Skin: no rash, warm/dry Nicho Rebolledo MD Feb 18, 2019 10:11
--- NOTE | 2019-02-18 10:55 | Infectious Diseases Prog Note ---
Assessment/Plan Assessment/Plan A; Pneumonia treated Acute respiratory failure resolved DM with hyperglycemia CKD, acute renal failure, on HD Anemia Decreased albumin PAF Elevated troponin Diarrhea VRE carrier P; Observe off antibiotic Subjective ROS Limited/Unobtainable: Yes Constitutional: Reports: no symptoms Allergies: Coded Allergies: No Known Allergies (Unverified , 09/25/17) Objective Vital Signs Last 24 Hour Vital Signs Date Time Temp Pulse Resp B/P (MAP) Pulse Ox O2 Delivery O2 Flow Rate FiO2 02/18/19 09:00 Nasal Cannula 3.0 02/18/19 08:00 97.7 77 23 104/57 (73) 97 02/18/19 04:00 98.3 86 17 139/68 (91) 95 02/18/19 00:00 98.3 84 17 144/72 (96) 96 02/17/19 21:00 Nasal Cannula 3.0 02/17/19 20:39 89 146/77 02/17/19 20:00 98.2 81 18 146/77 (100) 96 02/17/19 20:00 72 02/17/19 19:00 97 Nasal Cannula 2.0 28 02/17/19 16:00 76 02/17/19 12:00 75 02/17/19 12:00 98.5 76 22 121/57 (78) 93 Height (Feet): 5 Height (Inches): 3.00 Weight (Pounds): 107 General Appearance: no acute distress HEENT: mucous membranes moist Respiratory/Chest: lungs clear Cardiovascular: normal rate, other - Permacath Abdomen: soft, non tender Genitourinary: other - suprapubic catheter Extremities: no edema, other - bilateral BKA, finger clubbing Neurologic/Psychiatric: alert, responsive Laboratory Tests Test 02/17/19 16:20 White Blood Count 5.7 K/UL (4.8-10.8) Red Blood Count 3.85 M/UL (4.70-6.10) L Hemoglobin 11.3 G/DL (14.2-18.0) L Hematocrit 35.3 % (42.0-52.0) L Mean Corpuscular Volume 92 FL (80-99) Mean Corpuscular Hemoglobin 29.5 PG (27.0-31.0) Mean Corpuscular Hemoglobin Concent 32.2 G/DL (32.0-36.0) Red Cell Distribution Width 17.2 % (11.6-14.8) H Platelet Count 128 K/UL (150-450) L Mean Platelet Volume 9.1 FL (6.5-10.1) Neutrophils (%) (Auto) 64.5 % (45.0-75.0) Lymphocytes (%) (Auto) 22.3 % (20.0-45.0) Monocytes (%) (Auto) 8.2 % (1.0-10.0) Eosinophils (%) (Auto) 3.9 % (0.0-3.0) H Basophils (%) (Auto) 1.2 % (0.0-2.0) Current Medications Medications (Trade) Dose Ordered Sig/Joe Route PRN Reason Start Time Stop Time Status Last Admin Dose Admin Acetaminophen (Tylenol) 650 mg Q4H PRN ORAL Mild Pain/Temp > 100.5 02/16/19 09:00 03/13/19 20:59 Al Hydroxide/Mg Hydroxide (Mylanta) 30 ml PRN ORAL 02/15/19 21:00 03/17/19 20:59 Aspirin (Ecotrin) 81 mg DAILY ORAL 02/16/19 09:00 03/18/19 08:59 02/18/19 08:35 Carvedilol (Coreg) 6.25 mg EVERY 12 HOURS ORAL 02/18/19 09:00 03/20/19 08:59 Chlorhexidine Gluconate (Falguni-Hex 2%) 1 applic DAILY@2000 TOPIC 02/16/19 20:00 03/08/19 19:59 02/17/19 20:38 Dextrose (Dextrose 50%) 25 ml Q30M PRN IV Hypoglycemia 02/15/19 21:00 03/08/19 11:29 Dextrose (Dextrose 50%) 50 ml Q30M PRN IV Hypoglycemia 02/15/19 21:00 03/08/19 11:29 Epoetin Mayo (Epoetin Mayo(ESRD on dialysis)) 10,000 unit MON-MON-MON SUBQ 02/15/19 21:00 03/08/19 20:59 02/15/19 21:32 Heparin Sodium (Porcine) (Heparin 5000 units/ml) 5,000 units EVERY 12 HOURS SUBQ 02/16/19 09:00 03/08/19 08:59 02/17/19 20:41 Insulin Aspart (NovoLOG) AC+HS SUBQ 02/15/19 22:00 03/08/19 21:59 02/18/19 06:27 Lansoprazole (Prevacid) 30 mg DAILY ORAL 02/16/19 09:00 03/08/19 08:59 02/18/19 08:34 Metoclopramide HCl (Reglan) 5 mg Q6H PRN IVP Nausea & Vomiting 02/15/19 21:00 03/17/19 20:59 Emir Madsen MD Feb 18, 2019 10:55
--- NOTE | 2019-02-18 11:39 | Surgery Progress Note ---
Surgery Progress Note Subjective Procedure Performed removal right femoral temporary hemodialysis catheter Additional Comments no acute events doing well labs noted exam stable. Objective Last 24 Hour Vital Signs Date Time Temp Pulse Resp B/P (MAP) Pulse Ox O2 Delivery O2 Flow Rate FiO2 02/18/19 09:00 Nasal Cannula 3.0 02/18/19 08:00 97.7 77 23 104/57 (73) 97 02/18/19 08:00 95 Nasal Cannula 3.0 32 02/18/19 04:00 98.3 86 17 139/68 (91) 95 02/18/19 00:00 98.3 84 17 144/72 (96) 96 02/17/19 21:00 Nasal Cannula 3.0 02/17/19 20:39 89 146/77 02/17/19 20:00 98.2 81 18 146/77 (100) 96 02/17/19 20:00 72 02/17/19 19:00 97 Nasal Cannula 2.0 28 02/17/19 16:00 76 02/17/19 12:00 75 02/17/19 12:00 98.5 76 22 121/57 (78) 93 I&O Intake and Output 02/17/19 02/18/19 19:00 07:00 Intake Total 655 ml 360 ml Output Total 1810 ml 300 ml Balance -1155 ml 60 ml Intake Oral 0 ml 360 ml Free Water 40 ml Tube Feeding 35 ml Blood Product 50 ml Hemodialysis 500 ml Other 30 ml Output Urine Total 250 ml 300 ml Stool Total 0 ml Gastric Drainage Total 60 ml Hemodialysis UF 1500 ml # Voids 1 1 # Bowel Movements 1 1 Dressing: dry Wound: clean Cardiovascular: RSR Respiratory: clear Abdomen: soft, flat, present bowel sounds Extremities: other Laboratory Tests Test 02/17/19 16:20 White Blood Count 5.7 K/UL (4.8-10.8) Red Blood Count 3.85 M/UL (4.70-6.10) L Hemoglobin 11.3 G/DL (14.2-18.0) L Hematocrit 35.3 % (42.0-52.0) L Mean Corpuscular Volume 92 FL (80-99) Mean Corpuscular Hemoglobin 29.5 PG (27.0-31.0) Mean Corpuscular Hemoglobin Concent 32.2 G/DL (32.0-36.0) Red Cell Distribution Width 17.2 % (11.6-14.8) H Platelet Count 128 K/UL (150-450) L Mean Platelet Volume 9.1 FL (6.5-10.1) Neutrophils (%) (Auto) 64.5 % (45.0-75.0) Lymphocytes (%) (Auto) 22.3 % (20.0-45.0) Monocytes (%) (Auto) 8.2 % (1.0-10.0) Eosinophils (%) (Auto) 3.9 % (0.0-3.0) H Basophils (%) (Auto) 1.2 % (0.0-2.0) Plan Problems: (1) ARDS (adult respiratory distress syndrome) (2) Anemia (3) Elevated troponin (4) MARY (acute kidney injury) (5) COPD with exacerbation (6) Abnormal LFTs Assessment & Plan: Abnormalities likely from shock liver. Gallbladder wall thickening nonspecific. Sonographic Rojas's is equivocal due to patient's condition. Trace ascites Bilateral pleural effusions. Suspected medical renal disease. Suspected nonobstructive stone in the right kidney. Trend labs Leukocytosis trending down Anemia LFTs normal now Improving (7) COPD (chronic obstructive pulmonary disease) (8) Respiratory distress (9) Pneumonia (10) HTN (hypertension) (11) Epileptic seizure, generalized (12) Shock liver Assessment & Plan: Shock liver likely from hypotension and cardiovascular arrest. Resuscitation with IV fluids ICU care and management Trend labs overall improving permacath fem line removed We will follow with recommendations (13) Suprapubic catheter Hari Batres Feb 18, 2019 11:39
[2019-02-18 12:00] VITALS: BP 126/58
--- NOTE | 2019-02-18 12:12 | Nephrology Progress Note ---
Assessment/Plan Plan ESRD - STARTED HD via femoral Junior. Needs PermaCath + AVF. Sepsis - per ID. [place] [facility] [place] HD q MWF OK for DC after HD Subjective Subjective Denies c/o. Objective Objective Last 24 Hour Vital Signs Date Time Temp Pulse Resp B/P (MAP) Pulse Ox O2 Delivery O2 Flow Rate FiO2 02/18/19 09:00 Nasal Cannula 3.0 02/18/19 08:00 97.7 77 23 104/57 (73) 97 02/18/19 08:00 95 Nasal Cannula 3.0 32 02/18/19 04:00 98.3 86 17 139/68 (91) 95 02/18/19 00:00 98.3 84 17 144/72 (96) 96 02/17/19 21:00 Nasal Cannula 3.0 02/17/19 20:39 89 146/77 02/17/19 20:00 98.2 81 18 146/77 (100) 96 02/17/19 20:00 72 02/17/19 19:00 97 Nasal Cannula 2.0 28 02/17/19 16:00 76 Intake and Output 02/17/19 02/18/19 19:00 07:00 Intake Total 655 ml 360 ml Output Total 1810 ml 300 ml Balance -1155 ml 60 ml Intake Oral 0 ml 360 ml Free Water 40 ml Tube Feeding 35 ml Blood Product 50 ml Hemodialysis 500 ml Other 30 ml Output Urine Total 250 ml 300 ml Stool Total 0 ml Gastric Drainage Total 60 ml Hemodialysis UF 1500 ml # Voids 1 1 # Bowel Movements 1 1 Laboratory Tests 02/17/19 16:20: White Blood Count 5.7, Red Blood Count 3.85L, Hemoglobin 11.3L, Hematocrit 35.3L , Mean Corpuscular Volume 92, Mean Corpuscular Hemoglobin 29.5, Mean Corpuscular Hemoglobin Concent 32.2, Red Cell Distribution Width 17.2H, Platelet Count 128L, Mean Platelet Volume 9.1, Neutrophils (%) (Auto) 64.5, Lymphocytes (%) (Auto) 22.3, Monocytes (%) (Auto) 8.2, Eosinophils (%) (Auto) 3.9H, Basophils (%) (Auto) 1.2 Height (Feet): 5 Height (Inches): 3.00 Weight (Pounds): 107 Objective Alert. IJ PermaCath Rt. sided. CV RR Lungs CTA Abd SNT. BS + E No CCE. B BKA stumps clean. Nery Quezada MD Feb 18, 2019 12:12
--- NOTE | 2019-02-18 12:15 | NUR ---
NURSE NOTES: Dr. Quezada seen and examined patient's right external jugular permacath at bedside. Per Dr. Quezada, okay to discharge after hemodialysis. Order put in by Dr. Quezada. Called [facility] hemodialysis to relay order for hemodialysis today and that patient has discharge order for today. Spoke with Radha and acknowledged. Will continue to monitor patient.
[2019-02-18] MEDS ORDERED: Heparin Sod 1000 units/ml 10ml IV PRN (13:00)
[2019-02-18] MEDS ORDERED: Heparin 1000 units/ml 1ml Vial INJ PRN (13:30)
--- NOTE | 2019-02-18 14:56 | NUR ---
*-* INSURANCE *-* UPDATED CLINICALS HAVE BEEN FAXED TO: [facility] [facility] @ [phone] - OPT-3 TRKING# [id number] NCM: NICHOLAS Martin P- [phone] F- [phone]....REVIEW/CLINICAL
[2019-02-18 16:00] VITALS: BP 143/63
--- NOTE | 2019-02-18 16:36 | NUR ---
DISCHARGE PLANNING Discharge order noted Patient is approve for Trevor Ru[facility] Transportation to: [facility] [address] [place] [address] .Fri 2pm-5pm starting Feb.20 ( approved for 6 appointments) Trevor provided the first four confirmations; Confirmation# [id number] Feb, confirmation# [id number] Feb, confirmation# [id number] Feb confirmation# [id number] Feb 27
--- NOTE | 2019-02-18 16:44 | NUR ---
DISCHARGE PLANNING DISCHARGE ORDER NOTED Patient has been accepted to; [facility] [address] [place] [address] Bed: 130-A Skilled [phone] for Nurse to Nurse report [facility] ETA for transportation: 17:30
--- NOTE | 2019-02-18 17:15 | NUR ---
NURSE NOTES: Called [facility] and gave report to YU Esparza. Noted.
--- NOTE | 2019-02-18 17:40 | NUR ---
NURSE NOTES: Patient discharged to [facility] per Dr. Noriega's orders. Patient given all discharge instructions and verbalized understanding. Patient had no IV access as patient was refusing IV insertion. Heart monitor removed and returned to library monitor. ID band removed and placed in shredder. Patient left via ambulance accompanied by 2 butt trimmer with all belongings and in stable condition.
--- NOTE | 2019-02-19 02:00 | Progress Note ---
DATE: 02/18/2019 CARDIOLOGY PROGRESS NOTE SUBJECTIVE: The patient remains without respiratory distress. Extubated several days ago. OBJECTIVE: VITAL SIGNS: Blood pressure 104/57, heart rate 77, respiratory rate 23, afebrile, and oxygen saturation on 3 liters 95 to 97 percent. LUNGS: Few rhonchi. No wheezing. HEART: Regular rhythm and rate. Normal S1, S2. ABDOMEN: Soft. EXTREMITIES: No edema. Right PermCath site clean and dry. IMPRESSION: 1. Status post full arrest. 2. Status post respiratory failure. 3. Status post acute myocardial infarction. 4. End-stage renal disease, on hemodialysis and status post PermCath. 5. Recovered electrolyte abnormalities. 6. Severe protein-calorie malnutrition. 7. Recovered shock and sepsis due to urinary tract infection and healthcare-acquired aspiration pneumonia. PLAN: 1. Maintain anti-platelet therapy, beta-artis, and statin drugs. 2. Long-term hemodialysis with ultrafiltration. 3. Titrate antihypertensives and antianginals based on clinical parameters as dialysis continues and volume status improves. Jamari Gale M.D. DR: ENDY JOB#: [id number] CC:
--- NOTE | 2019-02-19 07:58 | Discharge Summary ---
Discharge Summary Discharge Summary _ DATE OF ADMISSION: 02/05/2019 DATE OF DISCHARGE: 02/18/2019 DISCHARGED BY: Dr. Noriega REASON FOR ADMISSION: 68 years old male with past medical history of COPD, hypertension, coronary artery disease, atrial fibrillation, diabetes mellitus, hyperlipidemia, chronic kidney disease, anemia, peripheral vascular disease with bilateral below-knee amputation, GERD, history of alcohol abuse, resident of [facility] facility , presented with acute shortness of breath. Patient was tachypneic and hypoxic and required supplemental oxygen. Upon evaluation laboratory work-up revealed leukocytosis and anemia with WBC 14.4 , hemoglobin 6.4, hematocrit 19.4, platelet count 195. Urinalysis revealed +4 protein, +3 glucose, no evidence of urinary tract infection. Chemistry demonstrated evidence of renal failure with BUN 95 creatinine 9.3. Glucose 121. Lactic acid 2.6. Troponin 0.238. Pro BNP >35,000. EKG revealed sinus rhythm no acute ST elevation. Chest x-ray revealed right-sided pneumonia and pulmonary vascular congestion. Patient was placed on the BiPAP. Patient typed and crossed, and started on blood transfusion. While still in the emergency room patient coded , requiring emergency oral intubation and transferred to ICU for further management. CONSULTANTS: technical support engineer ID specialist Dr. Greene GI specialist Dr. Wetzel diversified crops supervisor Dr. Ware foreign food specialty cook/oncologist Dr. Rebolledo [facility] Dr. Batres [facility] COURSE: Patient admitted to ICU. Ventilator support provided. Patient was followed-up with ABG and chest x-ray. Settings titrated as needed. Patient started on empiric antibiotics and IV fluids Hemodynamic status was closely monitored to keep mean arterial blood pressure above 65. NG tube was initially inserted for medication. Abdominal x-ray confirmed placement. Abdominal ultrasound revealed gallbladder wall thickening, nonspecific. Trace ascites. Bilateral pleural effusion. Suspected medical right renal disease. Patient required urgent hemodialysis. Temporary hemodialysis catheter was placed by surgeon via right femoral vein. Hemodialysis started as per diversified crops supervisor recommendations with close monitoring of volumes and cardiorenal parameters. Renal parameters and electrolytes were closely monitored. Electrolytes corrected as needed. Creatinine trended down , but patient still required hemodialysis. Subsequently a permanent tunneled catheter was inserted by interventional radiology via right transjugular vein on 02/15 and temporary hemodialysis catheter was removed prior to discharge. Outpatient hemodialysis was arranged . Patient will need to be scheduled for an AV fistula graft insertion. Echocardiogram demonstrated global left ventricular hypokinesis with left ventricular ejection fraction estimated to be 40 to 45% and mild left ventricular hypertrophy. No evidence of pericardial effusion. Moderately elevated left atrial pressure grade 2. Mild mitral regurgitation and mild to moderate tricuspid regurgitation. Right ventricular systolic pressure of 67 consistent with moderate pulmonary hypertension. Hemodynamic status stabilized as patient clinically improved. Troponin trended down, still mildly elevated, likely NSTEMI as per technical support engineer. Antiplatelet therapy with aspirin , beta blockage and statin continued. Antihypertensive regimen was titrated as per technical support engineer. DVT prophylaxis provided. Antibiotics provided as per ID specialist recommendation. Blood cultures were negative. Sputum culture was negative. Patient undergone treatment of pneumonia. Leukocytosis with highest being 23.4, and intermittent fevers resolved. ID specialist recommended to monitor patient off antibiotics. Hemoglobin and hematocrit were closely monitored with goal to keep hemoglobin above 7. Stool OB x2 was negative. Patient undergone transfusion of 3 units of packed red blood cells while in the hospital. GI specialist followed. Anemia work-up revealed evidence of anemia of chronic disease due to underlying chronic medical issues, and was multifactorial. No evidence of hemodialysis was noted. Patient received Epogen and Venofer. Prior to discharge hemoglobin 11.3 hematocrit 35.3. LFT were closely monitored. Hepatitis panel revealed evidence of positive hepatitis C antibody. LFT trended down to normal. Transaminitis was likely due to shock liver, secondary to shock, and resolved. GI prophylaxis provided. Bowel regimen instituted. GI specialist recommended outpatient treatment for hepatitis C. Patient eventually was able to be extubated. Supplemental oxygen titrated to keep pulse oximetry above 92%. Pulmonary toilet via handheld nebulizing therapy with bronchodilator provided as needed. Prior to discharge pulse oximetry stable on oxygen 3 L via nasal cannula. Blood sugar was closely monitored and managed with sliding scale of insulin as needed. Hemoglobin A1c 6.3 at goal. Swallow evaluation revealed evidence of dysphagia and aspiration risk. For quality of life diet texture provided as per speech therapist recommendation with strict aspiration/ reflux precaution and one-to-one feeding. Speech therapist recommended video swallow evaluation which would be done as outpatient. Per commercial real estate associate , patient was at high risk for malnutrition. Initially tube feeding via NG tube and protein supplements implemented in plan of care as per registered public surveyor recommendation. When patient started on oral diet, protein supplements continued. Patient clinically stabilized and was ready for transfer to [facility] facility for continuation of care and outpatient hemodialysis. FINAL DIAGNOSES: status cardiopulmonary arrest Acute respiratory failure requiring intubation , resolved Sepsis with shock -resolved Healthcare acquired versus aspiration pneumonia, status post treatment COPD with acute exacerbation Acute kidney injury on chronic st 5 kidney disease, requiring start of hemodialysis End-stage renal disease NSTEMI Anemia of chronic disease Congestive heart failure Paroxysmal atrial fibrillation Coronary artery disease Hypertensive heart disease Hyperlipidemia Diabetes mellitus Peripheral vascular disease with bilateral BKA Dysphagia GERD History of ETOH abuse Shock liver -resolved Severe protein calorie malnutrition Electrolyte abnormalities Hepatitis C DISCHARGE MEDICATIONS: See Medication Reconciliation list. DISCHARGE INSTRUCTIONS: Patient was discharged to the [facility] facility. Follow up with medical doctor at the facility. I have been assigned to dictate discharge summary for this account. I was not involved in the patient's management. Michelle Bob NP Feb 19, 2019 07:58
--- NOTE | 2019-02-19 11:26 | NUR ---
*-* INSURANCE *-* DISCHARGE SUMMARY HAS BEEN FAXED TO: [facility] [facility] @ [phone] - OPT-3 TRKING# [id number] NCM: NICHOLAS Martin P- [phone] F- [phone]....REVIEW/CLINICAL
[2019-02-20] MEDS ORDERED: Epoetin Alfa-EPBX(ESRD on dialysis)10,000 unit/ml vial SUBQ SCH (21:00)
== END 2019-02-18 17:48 | DRG 720 ==
LOC: EDBD 22:31 → EMR 22:48 → ICU 23:03 → EDBEDREQ 02-06 00:21 → EDBEDREQSVC 02-06 01:39 → EDBEDREQ 02-06 01:39 → 2E 02-15 20:08
PROC: 5A1955Z Respiratory Ventilation, Greater than 96 Consecutive Hours (ICD-10-PCS; principal; 2019-02-06)
PROC: 0BH17EZ Insertion of Endotracheal Airway into Trachea, Via Natural or Artificial Opening (ICD-10-PCS; principal; 2019-02-06)
PROC: 06HM33Z Insertion of Infusion Device into Right Femoral Vein, Percutaneous Approach (ICD-10-PCS; 2019-02-06)
PROC: 5A1D70Z Performance of Urinary Filtration, Intermittent, Less than 6 Hours Per Day (ICD-10-PCS; 2019-02-06)
PROC: 0JHL3XZ Insertion of Tunneled Vascular Access Device into Right Upper Leg Subcutaneous Tissue and Fascia, Percutaneous Approach (ICD-10-PCS; 2019-02-06)
PROC: 06HN33Z Insertion of Infusion Device into Left Femoral Vein, Percutaneous Approach (ICD-10-PCS; 2019-02-06)
PROC: 05HM33Z Insertion of Infusion Device into Right Internal Jugular Vein, Percutaneous Approach (ICD-10-PCS; 2019-02-15)
PROC: B543ZZA Ultrasonography of Right Jugular Veins, Guidance (ICD-10-PCS; 2019-02-15)
PROC: 0JH63XZ Insertion of Tunneled Vascular Access Device into Chest Subcutaneous Tissue and Fascia, Percutaneous Approach (ICD-10-PCS; 2019-02-15)
PROC: 06PYX3Z Removal of Infusion Device from Lower Vein, External Approach (ICD-10-PCS; 2019-02-15)
DX: A41.9 Sepsis, unspecified organism (principal); J44.1 Chronic obstructive pulmonary disease with (acute) exacerbation; N17.9 Acute kidney failure, unspecified; J18.9 Pneumonia, unspecified organism; K72.00 Acute and subacute hepatic failure without coma; N18.6 End stage renal disease; I21.4 Non-ST elevation (NSTEMI) myocardial infarction; E87.0 Hyperosmolality and hypernatremia; J96.00 Acute respiratory failure, unspecified whether with hypoxia or hypercapnia; J44.0 Chronic obstructive pulmonary disease with (acute) lower respiratory infection; J69.0 Pneumonitis due to inhalation of food and vomit; I25.10 Atherosclerotic heart disease of native coronary artery without angina pectoris; I48.0 Paroxysmal atrial fibrillation; I13.2 Hypertensive heart and chronic kidney disease with heart failure and with stage 5 chronic kidney disease, or end stage renal disease; E11.22 Type 2 diabetes mellitus with diabetic chronic kidney disease; I50.9 Heart failure, unspecified; E11.65 Type 2 diabetes mellitus with hyperglycemia; E11.21 Type 2 diabetes mellitus with diabetic nephropathy; E78.5 Hyperlipidemia, unspecified; D63.1 Anemia in chronic kidney disease; K21.9 Gastro-esophageal reflux disease without esophagitis; J80 Acute respiratory distress syndrome; Z89.512 Acquired absence of left leg below knee; Z89.511 Acquired absence of right leg below knee; G40.909 Epilepsy, unspecified, not intractable, without status epilepticus; I46.9 Cardiac arrest, cause unspecified; Z93.59 Other cystostomy status; E86.0 Dehydration; D69.6 Thrombocytopenia, unspecified; R13.10 Dysphagia, unspecified; K59.00 Constipation, unspecified; E43 Unspecified severe protein-calorie malnutrition; Z68.1 Body mass index [BMI] 19.9 or less, adult; N39.0 Urinary tract infection, site not specified; B19.20 Unspecified viral hepatitis C without hepatic coma
CPT/HCPCS: 31500; 36415; 36600; 71045; 74018; 76000; 76700; 80048; 80053; 80202; 80299; 81003; 82150; 82248; 82270; 82550; 82553; 82728; 82746; 82803; 82962; 83036; 83540; 83550; 83605; 83690; 83735; 83880; 84478; 84484; 85007; 85025; 85610; 85730; 86705; 86709; 86803; 86850; 86900; 86901; 86920; 87040; 87070; 87081; 87205; 87340; 92950; 93005; 93306; 94002; 94003; 94640; 94660; 94664; 96361; 96374; 96375; 99291; J0171; J1815; J2765; J7620; J8499

== ENCOUNTER 2020-07-03 06:25 | Inpatient (IN) | payer MEDICAID ==
[2020-07-03] VITALS (9 sets, daily range): BP systolic 71–111; BP diastolic 39–55
[~2020-07-03] VITALS: Ht 170.2 cm; Wt 39.9 kg
[~2020-07-03 06:25] MED LIST changes: +ACETAMINOPHEN325 M1 ORAL; +ASPIRIN EC81 MG ORAL; +ATARAX25 MG ORAL; +ATORVASTATIN CA10 MG ORAL; +ATROPINE SU1 MG/1 M1 IJ; +ATROPINE SULFAT15 ML OP; +CARVEDILOL3.125 MG ORAL; +COSOPT1 DRO2 BOTH EYES; +FISH OIL 500 M1 EAC1 PO; +LANSOPRAZOLE30 MG ORAL; +MAALOX MAXIMUM355 M1 PO; +METOCLOPRAM5 MG/1 M1 IVP; +NOVOLIN R100 UNIT/1 SUBQ; +RENA-VITE TABL0.8 M1 PO; +VITAMIN D250000 UNI1 ORAL
[2020-07-03] MEDS ORDERED: Sodium Chloride 2,200 ML IVLG ONE (06:30)
--- NOTE | 2020-07-03 06:30 | NUR ---
ED Nurse Note: Patient brought into ED by MARIXA RA 26 from [facility] for hypotension and bradycardia. MARIXA notes initial BP on scene was 54/21 and heart rate at 49. Patient is awake and alert, aaox1. He is bilat below the knee amputee. Upon ED arrival, patient is breathing labored and is on 15L oxygen via NRB. Patient will desat into the 80's if not on NRB. Patient connected to groundwater monitoring technician. IV line established by MARIXA 18g R AC and approx 200ml IV NS infused en route. Dialysis shunt noted to L upper arm. Patient goes to dialysis M/W/Monday and last went on monday per MARIXA. Safety measures in place.
[2020-07-03] MEDS ORDERED: SENNA PLUS 8.61 EACH PO (06:31)
[2020-07-03] MEDS ORDERED: NORCO 5-325 TA1 EAC1 ORAL (06:31)
[2020-07-03] MEDS ORDERED: COLACE100 MG ORAL (06:31)
[2020-07-03] MEDS ORDERED: ATORVASTATIN CA10 MG ORAL (06:31)
[2020-07-03] MEDS ORDERED: LANTUS SOL100 UNIT/1 SUBQ (06:31)
[2020-07-03] MEDS ORDERED: LOSARTAN POTASS25 MG ORAL (06:31)
[2020-07-03] MEDS ORDERED: PANTOPRAZOLE SO40 MG ORAL (06:31)
[2020-07-03] MEDS ORDERED: BISACODYL5 MG ORAL (06:31)
--- NOTE | 2020-07-03 06:33 | Emergency Room Report ---
History of Present Illness General Chief Complaint: Dyspnea/Respdistress Source: EMS Present Illness HPI Disclaimer: Please note that this report is being documented using DRAGON technology. This can lead to erroneous entry secondary to incorrect interpretation by the dictating instrument. HPI: 69-year-old male presents from nursing facility for evaluation of hypotension and bradycardia. Patient was last seen well approximately 12 hours ago. He was found with pulse rate in the 40s and blood pressures in 50s systolic. He has history of ESRD on hemodialysis, hypertension, hyperlipidemia, alcohol abuse. Unknown last dialysis session. Patient is awake but appears confused and not answering questions at this time. No fever reported. No recent Covid testing. PMH: ESRD, hypertension, hyperlipidemia, diabetes PSH: Bilateral BKA Allergies: Reviewed Social Hx: Prior substance and alcohol abuse Allergies: Coded Allergies: No Known Allergies (Unverified , 09/25/17) COVID-19 Screening Contact w/high risk pt: Yes Experienced COVID-19 symptoms?: Yes COVID-19 Testing performed AIR CONDITIONING SUPERVISOR: No Nursing Documentation-PMH Hx Cardiac Problems: Yes - HF, AFIB Hx Hypertension: Yes Hx COPD: Yes Hx Diabetes: Yes Hx Cancer: No Hx Gastrointestinal Problems: Yes - GERD, ETOH ABUSE Hx Neurological Problems: No Hx Seizures: Yes Review of Systems All Other Systems: negative except mentioned in HPI Physical Exam Vital Signs Date Time Temp Pulse Resp B/P (MAP) Pulse Ox O2 Delivery O2 Flow Rate FiO2 07/03/20 06:20 98.4 49 12 54/21 (32) 94 Non-Rebreather 15.0 General: Awake, hypotensive HEENT: NC/AT. EOMI. Cardiovascular: Bradycardic Resp: On 15 L nonrebreather facemask. Normal work of breathing. No cough, wheezing or crackles appreciated Abdomen: Abdomen is soft, nondistended. Nontender. Catheter in place Skin: Intact. No abrasions, laceration or rash over the exposed skin MSK: Normal tone and bulk. Moving all extremities. No obvious deformity. Neuro: Awake, not responding verbally but makes good eye contact. GCS 14. Procedures Critical Care Time Critical Care Time Total critical care time: Approximately 45 minutes Due to a high probability of clinically significant, life threatening deterioration, the patient required the highest level of preparedness to intervene emergently and I personally spent this critical care time directly and personally managing the patient. This critical care time included obtaining a history, examining the patient, pulse oximetry, ordering and reviewing studies, ordering treatments, evaluating response to treatment and updating management plan as needed, frequent reassessment and discussion with other providers as well as arranging for ultimate disposition. This critical to care time was performed to assess and manage the high probability of life-threatening deterioration that could result in multiorgan failure. This critical care time is separate from the separately billable procedures and treating other patients. Medical Decision Making Diagnostic Impression: Primary Impression: Prolonged QT interval Additional Impressions: Pneumonia due to COVID-19 virus UTI (urinary tract infection) Hyperkalemia Elevated troponin Hypotension ER Course 69-year-old male history of ESRD on hemodialysis presents for evaluation of hypotension and bradycardia. Differential includes is not limited to heart failure, shock, sepsis, infection, pneumonia, electrolyte abnormality among others. On arrival his mental status appears improved and his GCS is 14. EKG shows prolonged QTC at 584 ms. Chest x-ray shows right middle lobe and upper lobe infiltrate as well as a enlarged heart consistent with CHF. Treated with Zosyn. Rapid swab for COVID-19 returned positive. Patient given dexamethasone. There is evidence of urinary tract infection as well. Potassium returned critically elevated 6.3. Patient treated with calcium and insulin. No EKG changes of hyperkalemia aside from prolonged QTC. Troponin elevated. Will arrange for dialysis. Heart rate and blood pressure improving. Discussed with his PMD, Dr. Quezada, who is accepted the patient for admission. Sepsis reevaluation: I, Dr. Silvano Heredia, reevaluated the patient Capillary refill: Less than 2 seconds MAP: 63 Heart rate: 67 Respiratory rate: 21 Initial Lactate: 2.4 Repeat Lactate: Pending Laboratory Tests Test 07/03/20 06:40 White Blood Count 7.1 K/UL (4.8-10.8) Red Blood Count 3.06 M/UL (4.70-6.10) L Hemoglobin 9.3 G/DL (14.2-18.0) L Hematocrit 27.5 % (42.0-52.0) L Mean Corpuscular Volume 90 FL (80-99) Mean Corpuscular Hemoglobin 30.3 PG (27.0-31.0) Mean Corpuscular Hemoglobin Concent 33.8 G/DL (32.0-36.0) Red Cell Distribution Width 18.1 % (11.6-14.8) H Platelet Count 62 K/UL (150-450) L Mean Platelet Volume 13.7 FL (6.5-10.1) H Neutrophils (%) (Auto) % (45.0-75.0) Lymphocytes (%) (Auto) % (20.0-45.0) Monocytes (%) (Auto) % (1.0-10.0) Eosinophils (%) (Auto) % (0.0-3.0) Basophils (%) (Auto) % (0.0-2.0) Neutrophils % (Manual) Pending Lymphocytes % (Manual) Pending Platelet Estimate Pending Platelet Morphology Pending Prothrombin Time 12.0 SEC (9.30-11.50) H Prothrombin Time INR 1.1 (0.9-1.1) Activated Partial Thromboplast Time 35 SEC (23-33) H Urine Color Yellow Urine Appearance Very cloudy Urine pH 9 (4.5-8.0) Urine Specific [place] 1.015 (1.005-1.035) Urine Protein 4+ (NEGATIVE) H Urine Glucose (UA) Negative (NEGATIVE) Urine Ketones 1+ (NEGATIVE) H Urine Blood 4+ (NEGATIVE) H Urine Nitrite Negative (NEGATIVE) Urine Bilirubin Negative (NEGATIVE) Urine Urobilinogen Normal MG/DL (0.0-1.0) Urine Leukocyte Esterase 3+ (NEGATIVE) H Urine RBC 10-15 /HPF (0 - 0) H Urine WBC Tntc /HPF (0 - 0) H Urine Squamous Epithelial Cells Occasional /LPF Urine Bacteria Many /HPF (NONE) H Sodium Level 141 MMOL/L (136-145) Potassium Level 6.3 MMOL/L (3.5-5.1) *H Chloride Level 105 MMOL/L (98-107) Carbon Dioxide Level 18 MMOL/L (21-32) L Anion Gap 18 mmol/L (5-15) H Blood Urea Nitrogen 117 mg/dL (7-18) H Creatinine 9.2 MG/DL (0.55-1.30) H Estimated Glomerular Filtration Rate 5.7 mL/min (>60) Glucose Level 91 MG/DL (74-106) Lactic Acid Level 2.40 mmol/L (0.4-2.0) H Calcium Level 7.2 MG/DL (8.5-10.1) L Phosphorus Level 9.3 MG/DL (2.5-4.9) H Magnesium Level 2.0 MG/DL (1.8-2.4) Total Bilirubin 0.9 MG/DL (0.2-1.0) Aspartate Amino Transferase (AST) 15 U/L (15-37) Alanine Aminotransferase (ALT) 25 U/L (12-78) Alkaline Phosphatase 380 U/L (46-116) H Ammonia < 10 umol/L (11-32) L Total Creatine Kinase 1603 U/L (26-308) H Creatine Kinase MB 7.1 NG/ML (0.0-3.6) H Creatine Kinase MB Relative Index 0.4 Troponin I Pending Pro-B-Type Natriuretic Peptide > 85194 pg/mL (0-125) H Total Protein 6.8 G/DL (6.4-8.2) Albumin 2.1 G/DL (3.4-5.0) L Globulin 4.7 g/dL Albumin/Globulin Ratio 0.4 (1.0-2.7) L Lipase 50 U/L (73-393) L Microbiology Date/Time Source Procedure Growth Status 07/03/20 06:40 Nasopharynx SARS-CoV-2 RdRp Gene Assay - Final Complete 07/03/20 06:40 Nasal Nares - Final Complete 07/03/20 06:40 Nasal Nares - Final Complete EKG Diagnostic Results Troponin ordered: Yes When was troponin ordered?: Jul 03, 2020 EKG Time: 06:37 Rate: bradycardiac Rhythm: NSR Other Impression Sinus bradycardia with prolonged QTC at [address] segment abnormalities. Nonspecific T wave inversions Rhythm Strip Diag. Results Rhythm Strip Time: 06:37 EP Interpretation: yes Rate: 50s Rhythm: NSR, no PVC's, no ectopy Chest X-Ray Diagnostic Results Chest X-Ray Diagnostic Results : Chest X-Ray Ordered: Yes # of Views/Limited/Complete: 1 View Indication: Shortness of Breath EP Interpretation: Yes Interpretation: no effusion, no pneumothorax, other - Right middle and upper lobe infiltrate. Impression: Other - Right middle lobe pneumonia Electronically Signed by: Electronically signed by Dr. Silvano Heredia MD Last Vital Signs Date Time Temp Pulse Resp B/P (MAP) Pulse Ox O2 Delivery O2 Flow Rate FiO2 07/03/20 06:20 98.4 49 12 54/21 (32) 94 Non-Rebreather 15.0 Disposition: ADMITTED INPATIENT Condition: Serious Silvano Heredia MD Jul 03, 2020 06:33
[2020-07-03 06:56] LABS: APPEARANCE,URINE VERY CLOUDY; BILIRUBIN, URINE NEGATIVE (NEGATIVE); GLUCOSE, URINE (UA) NEGATIVE (NEGATIVE); KETONES,URINE 1+ (NEGATIVE); LEUKOCYTE ESTERASE ,URINE 3+ (NEGATIVE); NITRITE,URINE NEGATIVE (NEGATIVE); PH,URINE 9 (4.5-8.0); PROTEIN,URINE 4+ (NEGATIVE); UROBILINOGEN,URINE NORMAL MG/DL (0.0-1.0)
--- NOTE | 2020-07-03 07:05 | NUR ---
ED Nurse Note: Verbal order to stop mag sulfate at this time by CLAIRE.
[2020-07-03 07:08] LABS: COLOR,URINE YELLOW
[2020-07-03 07:09] LABS: INR 1.1 (0.9-1.1)
[2020-07-03 07:10] LABS: HEMATOCRIT 27.5 % (42.0-52.0); HEMOGLOBIN 9.3 G/DL (14.2-18.0); MEAN CORPUSCULAR VOLUME 90 FL (80-99); PLATELET COUNT 62 K/UL (150-450); RED BLOOD COUNT 3.06 M/UL (4.70-6.10); RED CELL DISTRIBUTION WIDTH 18.1 % (11.6-14.8); WHITE BLOOD COUNT 7.1 K/UL (4.8-10.8)
[2020-07-03] MEDS ORDERED: Piperacillin/Tazobactam 3.375 GM in NS 110 ML IV ONE (07:15)
[2020-07-03] MEDS ORDERED: dexAMETHasone 10mg/ml Inj IV ONE (07:15)
--- NOTE | 2020-07-03 07:20 | NUR ---
HAND-OFF: Report given to YU Griffith.
[2020-07-03 07:28] LABS: ALANINE AMINOTRANSFERASE 25 U/L (12-78); ALBUMIN 2.1 G/DL (3.4-5.0); ALBUMIN/GLOBULIN RATIO 0.4 (1.0-2.7); ALKALINE PHOSPHATASE 380 U/L (46-116); ANION GAP 18 mmol/L (5-15); ASPARTATE AMINO TRANSFERASE 15 U/L (15-37); BILIRUBIN,TOTAL 0.9 MG/DL (0.2-1.0); BLOOD UREA NITROGEN 117 mg/dL (7-18); CALCIUM 7.2 MG/DL (8.5-10.1); CARBON DIOXIDE 18 MMOL/L (21-32); CHLORIDE 105 MMOL/L (98-107); CKMB 7.1 NG/ML (0.0-3.6); CREATINE KINASE 1603 U/L (26-308); CREATININE 9.2 MG/DL (0.55-1.30); PHOSPHORUS 9.3 MG/DL (2.5-4.9); SODIUM 141 MMOL/L (136-145)
[2020-07-03 07:42] LABS: POTASSIUM 6.3 MMOL/L (3.5-5.1)
[2020-07-03] MEDS ORDERED: Calcium Gluconate 1gm/10ml vial IVP ONE (07:45)
[2020-07-03] MEDS ORDERED: Insulin Human Regular 100units/ml 3ml IV ONE (07:45)
--- NOTE | 2020-07-03 08:19 | NUR ---
ED Nurse Note: lactic reflex sent to lab
--- NOTE | 2020-07-03 08:41 | NUR ---
ED Nurse Note: latest BP: 88/55, pt now more alert, continuously mumbling words, confused at all times; satting at 98% on 15LPM via NRB.
--- NOTE | 2020-07-03 09:00 | NUR ---
ED Nurse Note: latest BP: 99/85.
--- NOTE | 2020-07-03 09:10 | NUR ---
ED Nurse Note: Pt was trasferred to SDU under the care of Dr. Moran. Hand off given to YU Lua in SDU. Pt was transferred on stable condition, acls and covid19 protocols was observed. Pt came up to SDU with no belongings. Family aware of pt transfer.
--- NOTE | 2020-07-03 09:40 | NUR ---
NURSE NOTES:handoff received from YU Griffith. Patient placed in room 239, patient is on 15 liters non-rebreather saturating at 96%, BP is stable at 107/47, HR is 55, RR of 18, patient is alert and mumbling but unable to answer questions at this time. patient placed on bed, with side rails up x3, call light at bedside, attempted to orient patient to room and call light but patient is unable to comprehend. 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
[2020-07-03] MEDS ORDERED: NovoLOG Insulin Flexpen SUBQ SCH (11:30)
--- NOTE | 2020-07-03 11:50 | NUR ---
NURSE NOTES:Patient constantly removing oxygen, explained importance of oxygen therapy but patient unable to comprehend.
--- NOTE | 2020-07-03 11:55 | NUR ---
NURSE NOTES:Patient extremities cold and temperature is low at 92.6 auxiliary, placed patient on bear hugger warmer.
[2020-07-03] MEDS ORDERED: Enoxaparin 30mg Inj SUBQ SCH (12:00)
[2020-07-03] MEDS ORDERED: Vancomycin 1gm/D5W 275ml IVPB ONE ×2 (12:00)
--- NOTE | 2020-07-03 12:20 | NUR ---
NURSE NOTES:patient pulling on IV lines and wrapping them around his arms, explained importance of I fluids but patient still pulling at lines. Right AC 20G IV pulled out by patient. Reinserted new IV Right forearm 20G and obtained order for restraints. Patient placed in bilateral wrist restraints, to prevent removal of oxygen and IV lines.
[2020-07-03] MEDS ORDERED: Albuterol 90mcg Inhaler 8gm INH PRN (12:30)
[2020-07-03] MEDS: NovoLOG Insulin Flexpen SUBQ SCH ×3 (12:30→21:00)
[2020-07-03] MEDS: D5 1/2NS 1,000 ML IV SCH (13:18)
--- NOTE | 2020-07-03 13:20 | NUR ---
NURSE NOTES:Patient auxiliary temperature now 97.1 with warming blanket on.
--- NOTE | 2020-07-03 13:24 | NUR ---
NURSE NOTES:Patient blood sugar now 129 after dextrose administered, changed Iv fluids order from 1/2NS to D51/2NS at 30ML/HR.
--- NOTE | 2020-07-03 14:00 | History and Physical Report ---
DATE OF ADMISSION: 07/03/2020 CHIEF COMPLAINT: Altered level of consciousness, shortness of breath. HISTORY OF PRESENT ILLNESS: This is a 69-year-old male, who is on dialysis at [facility]. The patient has been declining during the last week or so due to COVID-19 which has spread out at his facility [facility]. Apparently, the patient did not show up to his dialysis for several times. It is not clear at this point how many dialysis runs he missed. Upon presentation to the ED, his potassium was noted to be extremely elevated at 7.9. The patient is currently unable to converse. His last admission was at [facility] about two months ago. PAST MEDICAL HISTORY: 1. End-stage renal failure due to diabetic nephropathy. 2. Type 2 diabetes mellitus. 3. COPD. 4. Hypertensive cardiovascular disease. 5. Status post bilateral erhgy-jqz-[id number] amputation. 6. Anemia of chronic kidney disease. MEDICATIONS: jail medications include Tylenol as needed, baby aspirin, atorvastatin, bisacodyl, Coreg, sodium docusate, Lantus, insulin sliding scale, lansoprazole, losartan, Maalox as needed, Reglan as needed, Protonix, senna. ALLERGIES: No known allergies. FAMILY HISTORY: Unable to obtain due to his mental status. SOCIAL HISTORY: Unable to obtain due to his mental status. REVIEW OF SYSTEMS: Unable to obtain due to his mental status. PHYSICAL EXAMINATION: GENERAL: This is an elderly male, who is extremely cachectic. The patient is in severe respiratory distress. VITAL SIGNS: Blood pressure is 99/85, pulse 71 and regular, respirations 20, and temperature 98.4, axillary. HEENT: Head is normocephalic and atraumatic. Pupils are equal, round, and reactive to light. NECK: Supple. Trachea midline. There was no lymphadenopathy or thyromegaly. LUNGS: Bilateral rhonchi and wheezes. HEART: Regular rate and rhythm without rubs, murmurs, or gallops. ABDOMEN: Scaphoid, soft, and nontender. Bowel sounds were active. EXTREMITIES: No clubbing, cyanosis, or edema. His bilateral BKA stumps are clean. NEUROLOGIC: He is obtunded. There were no gross focal findings. LABORATORY AND ANCILLARY DATA: Hematocrit 27.5, WBC 7.1, and platelet count 62,000. Chemistry results are pending. ASSESSMENT: 1. Hyperkalemia. 2. COVID-19 pneumonia. 3. End-stage renal failure due to diabetic nephropathy. 4. Type 2 diabetes mellitus. 5. Chronic obstructive pulmonary disease. 6. Hypertensive cardiovascular disease. 7. Status post bilateral gsefq-qcd-[id number] amputation. 8. Anemia of chronic kidney disease. 9. Alcoholic Liver Cirrhosis with Pancytopenia. PLAN: 1. Stat hemodialysis. 2. Hold his care home medications. 3. Support BP. 4. May need ICU Care. 5. Thrombopenia is mainly due to Alcoholic Liver Cirrhosis and is of no concern. 6. Patient has no family or DPOA and therefore needs two MDs to sign foe Emergent Procedure. His dialysis is a continuation of the dialysis therapy from outside and therefore does not need a separate consent. Nery Quezada M.D. DR: MICK JOB#: [id number] CC: ANDREW
--- NOTE | 2020-07-03 15:07 | NUR ---
NURSE NOTES:Dialysis nurse stated she cannot dialyze patient as the permacath is clogged and the AV shunt is recirculating blood due to arterial and venous blood mixing, Patient BP is also low. Spoke to Dr Vee who stated to tell grinding and spraying supervisor to use TPA to unclog the permacath and try again tomorrow, Tucker dialysis nurse stated she cannot flush the TPA is the permacath is completely clogged. Tucker stated she will call and speak to the MD. Order given for Albumen for patient low BP.
--- NOTE | 2020-07-03 15:13 | Pulmonology Progress Note ---
Subjective ROS Limited/Unobtainable: Yes Allergies: Coded Allergies: No Known Allergies (Unverified , 09/25/17) Objective Last 24 Hour Vital Signs Date Time Temp Pulse Resp B/P (MAP) Pulse Ox O2 Delivery O2 Flow Rate FiO2 07/03/20 12:00 92.9 56 22 111/44 (66) 96 07/03/20 12:00 56 07/03/20 12:00 15.0 100 07/03/20 11:50 Non-Rebreather 15.0 07/03/20 10:24 Non-Rebreather 15.0 07/03/20 09:10 98.4 71 20 99/85 99 Non-Rebreather 15.0 07/03/20 08:43 98.4 64 21 88/55 99 Non-Rebreather 15.0 07/03/20 06:30 52 19 Non-Rebreather 15.0 07/03/20 06:30 98.4 52 19 71/51 99 Non-Rebreather 15.0 07/03/20 06:20 98.4 49 12 54/21 (32) 94 Non-Rebreather 15.0 Microbiology Date/Time Source Procedure Growth Status 07/03/20 07:40 Rectum Received 07/03/20 06:40 Nasopharynx SARS-CoV-2 RdRp Gene Assay - Final Complete 07/03/20 06:40 Nasal Nares - Final Complete 07/03/20 06:40 Nasal Nares - Final Complete Laboratory Tests 07/03/20 06:40: White Blood Count 7.1, Red Blood Count 3.06L, Hemoglobin 9.3L, Hematocrit 27.5L, Mean Corpuscular Volume 90, Mean Corpuscular Hemoglobin 30.3, Mean Corpuscular Hemoglobin Concent 33.8, Red Cell Distribution Width 18.1H, Platelet Count 62L, Mean Platelet Volume 13.7H, Neutrophils (%) (Auto) , Lymphocytes (%) (Auto) , Monocytes (%) (Auto) , Eosinophils (%) (Auto) , Basophils (%) (Auto) , Differential Total Cells Counted 100, Neutrophils % (Manual) 83H, Lymphocytes % (Manual) 7L, Monocytes % (Manual) 2, Eosinophils % (Manual) 0, Basophils % (Manual) 0, Band Neutrophils 8, Platelet Estimate DecreasedL, Platelet Morphology Normal, Hypochromasia 1+, Anisocytosis 1+, Prothrombin Time 12.0H, Prothromb Time International Ratio 1.1, Activated Partial Thromboplast Time 35H, D-Dimer 1.74H, Urine Color Yellow, Urine Appearance Very cloudy, Urine pH 9, Urine Specific [place] 1.015, Urine Protein 4+H, Urine Glucose (UA) Negative, Urine Ketones 1+H, Urine Blood 4+H, Urine Nitrite Negative, Urine Bilirubin Negative, Urine Urobilinogen Normal, Urine Leukocyte Esterase 3+H, Urine RBC 10- 15H, Urine WBC TntcH, Urine Squamous Epithelial Cells Occasional, Urine Bacteria ManyH, Sodium Level 141, Potassium Level 6.3*H, Chloride Level 105, Carbon Dioxide Level 18L, Anion Gap 18H, Blood Urea Nitrogen 117H, Creatinine 9.2H, Estimat Glomerular Filtration Rate 5.7, Glucose Level 91, Lactic Acid Level 2.40H, Calcium Level 7.2L, Phosphorus Level 9.3H, Magnesium Level 2.0, Ferritin 1808H, Total Bilirubin 0.9, Aspartate Amino Transf (AST/SGOT) 15, Alanine Aminotransferase (ALT/SGPT) 25, Alkaline Phosphatase 380H, Ammonia < 10L, Lactate Dehydrogenase 565H, Total Creatine Kinase 1603H, Creatine Kinase MB 7.1H , Creatine Kinase MB Relative Index 0.4, Troponin I 1.295H, C-Reactive Protein, Quantitative 18.2H, Pro-B-Type Natriuretic Peptide > 45999Q, Total Protein 6.8, Albumin 2.1L, Globulin 4.7, Albumin/Globulin Ratio 0.4L, Lipase 50L, Hepatitis B Surface Antigen [Pending] 07/03/20 08:06: Lactic Acid Level 2.20 07/03/20 11:29: Arterial Blood pH 7.257L, Arterial Blood Partial Pressure CO2 29.2L, Arterial Blood Partial Pressure O2 78.3, Arterial Blood HCO3 12.7*L, Arterial Blood Oxygen Saturation 90.0L, Arterial Blood Base Excess -13.1*L, Trevor Test Positive Current Medications Medications (Trade) Dose Ordered Sig/Joe Route PRN Reason Start Time Stop Time Status Last Admin Dose Admin Albuterol Sulfate (Proventil MDI) 2 puff Q4H PRN INH Shortness of Breath 07/03/20 12:30 10/01/20 12:29 Ceftriaxone Sodium 1 gm/ Dextrose 55 ml @ 110 mls/hr Q24H IVPB 07/04/20 09:00 07/11/20 08:59 Dexamethasone Sodium Phosphate (Decadron 10mg/ ml Inj) 6 mg DAILY IV 07/04/20 09:00 07/12/20 09:01 Dextrose (Dextrose 50%) 25 ml Q30M PRN IV Hypoglycemia 07/03/20 11:00 10/01/20 10:59 Dextrose (Dextrose 50%) 50 ml Q30M PRN IV Hypoglycemia 07/03/20 11:00 10/01/20 10:59 07/03/20 12:44 Dextrose/Sodium Chloride 1,000 ml @ 30 mls/hr Q24H IV 07/03/20 13:15 08/02/20 13:14 07/03/20 13:18 Doxycycline Hyclate 100 mg/ Dextrose 110 ml @ 110 mls/hr Q12HR IV 07/03/20 21:00 07/10/20 20:59 Insulin Aspart (NovoLOG) BEFORE MEALS AND HS SUBQ 07/03/20 12:30 10/01/20 12:29 [facility] 1 ea DAILY PRN MISC Per rx protocol 07/03/20 11:00 08/02/20 10:59 Assessment/Plan Assessment/Plan Pulmonary Consultation HPI: Patient is a 69-year-old man with past historyof End Stage Renal Disease on HD,admitted with Covid Pneumonia,had Covid symptoms for last weekfor last week. On HFNRB The patient is non verbal. Past Medical History: 1. End-stage renal failure due to diabetic nephropathy. 2. Type 2 diabetes mellitus. 3. COPD. 4. Hypertensive cardiovascular disease. 5. Status post bilateral wmudq-hhp-wibs amputation. 6. Anemia of chronic kidney disease. Medications: noted Allergies: No known drug allergies. FH: NA SH: NA Review of Systems: NA Objective: Vital signs noted PE: GENERAL: This is an elderly male, who is extremely cachectic. The patient is in severe respiratory distress.. HEENT: Head is normocephalic and atraumatic. Pupils are equal, round, and reactive to light. NECK: Supple. Trachea midline. There was no lymphadenopathy or thyromegaly. LUNGS: Bilateral rhonchi and wheezes. HEART: Regular rate and rhythm without rubs, murmurs, or gallops. ABDOMEN: Scaphoid, soft, and nontender. Bowel sounds were active. EXTREMITIES: No clubbing, cyanosis, or edema. His bilateral BKA stumps are clean. NEUROLOGIC: He is obtunded. There were no gross focal findings. per report,deferred Covid19 Laboratory:noted CXR:Patchy infiltrates Assessment: COVID-19 pneumonia,possible Community aquired pneumonia Respiratory Failure with hypoxia End-stage renal failure due to diabetic nephropathy Hyperkalemia,acidosis Type 2 diabetes mellitus. Chronic obstructive pulmonary disease. Hypertensive cardiovascular disease. S/p bilateral xbbbp-ohz-harp amputation. Anemia of chronic kidney disease Thrombocytopenia Plan: IV AB Oxygen PRN Bipap PRN BD PRN Decadron PPX HD per Renal Monitor labs Jamari Chambers MD Jul 03, 2020 15:13
--- NOTE | 2020-07-03 15:36 | NUR ---
NURSE NOTES:Dr Chambers notified of patient ABG results.
--- NOTE | 2020-07-03 15:50 | NUR ---
NURSE NOTES:Patient BP still low after administering albumin, contacted Dr Vee to notify him that patient BP is still low, Dr ordered transfer to ICU for Dopamine drip to maintain SBP >95.
--- NOTE | 2020-07-03 16:00 | Consultation ---
DATE OF CONSULTATION: 07/03/2020 INFECTIOUS DISEASE CONSULTATION This consult is for coverage of Dr. Greene. CONSULTING PHYSICIAN: Emir Madsen MD. PRIMARY ATTENDING PHYSICIAN: Nery Quezada MD. REASON FOR CONSULTATION: COVID-19 disease and sepsis. HISTORY OF PRESENT ILLNESS: This is a 69-year-old male admitted today from a detention facility because of decrease in blood pressure. At the time of admission, the blood pressure was 54/21, bradycardic, had altered mental status. The patient is confused, on restraints. PAST MEDICAL HISTORY: End-stage renal disease on hemodialysis, hypertension, hyperlipidemia, COPD, diabetes mellitus, atrial fibrillation, and bilateral below-knee amputations. MEDICATIONS: Ceftriaxone, doxycycline, dexamethasone, insulin, and vancomycin. SOCIAL HISTORY: longterm resident, single. No other history obtainable by the patient. PHYSICAL EXAMINATION: VITAL SIGNS: Temperature 92.9, pulse 56, blood pressure 111/44. GENERAL APPEARANCE: Seems to be cachectic. HEAD AND NECK: Getting oxygen by non-rebreather mask. HEART: Bradycardic. LUNGS: Clear. ABDOMEN: Soft. EXTREMITIES: No edema. Left arm AV shunt. The patient has right subclavian PermCath, but currently is not used. LABORATORY AND DIAGNOSTIC DATA: WBC 7.1, hemoglobin 9.3, hematocrit 27.5, platelets 62,000. COVID test was positive. Influenza A and B negative. UA showed wbc too numerous to count, rbc 10 to 15. Lactic acid initially was 2.4. Sodium 141, potassium 6.3, chloride 105, bicarb 18, BUN 117, creatinine 9.2. Glucose is 91. BNP more than 35,000. Chest x-ray report not available. IMPRESSION: COVID-19 disease, has pyuria, may have UTI. He has bradycardia and hypotension. He has end-stage renal disease, on hemodialysis. He has a PermCath, we will try to rule out line infection, diabetes mellitus type 2, cachexia, thrombocytopenia, hyperkalemia, anemia. RECOMMENDATION: Continue dexamethasone, doxycycline, ceftriaxone and vancomycin. We will follow up the cultures and try to narrow antibiotics. At the end of my exam, I thank Dr. Ware for involving me in the care of this patient. Emir Madsen M.D. DR: Ivania JOB#: [id number] CC:
--- NOTE | 2020-07-03 16:05 | NUR ---
NURSE NOTES:ICU currently full as there are no nurses to take patient, contacted Dr Vee who gave order for fixed rate dopamine drip of 4MCG/KG/Hour.
[2020-07-03] MEDS ORDERED: DOPamine 400mg/250ml 250 ML IV SCH (16:12)
--- NOTE | 2020-07-03 19:29 | NUR ---
NURSE NOTES: Report received from YU Lua. Observed pt lying in the bed, awake, but non-verbal. SR on cardiac nurse practitioner. On NRM, saturating at 92%. BP of 82/39 noted. T of 98.1. IV on R AC, intact running Dopamine at 4mcg/kg/min. IV on R FA running D5 1/2 NS at 30cc/hr. F/C intact. Bed in the lowest position. Side rails up x3. Will continue to monitor.
--- NOTE | 2020-07-03 19:42 | NUR ---
NURSE HAND-OFF REPORT: Important Events on Shift:BP low, Temp Low, hypoglycemic earlier in day shift. patient BP still in the 80s, Dopamine drip started at 4MCG/KG/HR Patient Status: guarded Diet: Renal and CCHO (M) Pending Orders: Pending Results/Labs:troponin and potassium elevated MD aware. Pending MD notification: Latest Vital Signs: Temperature 97.3 , Pulse 61 , B/P 72 /34 , Respiratory Rate 28 , O2 SAT 94 , Non-Rebreather, O2 Flow Rate 15.0 . Vital Sign Comment: EKG Rhythm: Sinus Rhythm Rhythm change?: N MD Notified?: - MD Response: Latest Joaquin Fall Score: 50 Fall Risk: High Risk Safety Measures: Call light Within Reach, Bed Alarm Zone 1, Side Rails Side Rails x3, Bed position Low and Locked. Fall Precautions: Patient Fall Education Report given to YU Rome.
--- NOTE | 2020-07-03 19:42 | NUR ---
NURSE NOTES:Unable to upload picture of sacrum as Computer for uploading pics is not letting me log in. endorsed to YU DOVE.
--- NOTE | 2020-07-03 20:00 | NUR ---
NURSE NOTES: Pt lying in the bed. BP of 80/50 noted on 4mcg dopamine at this time. On NRM, saturating at 93%. IV on R FA 18G, 20G, asymptomatic at this time, running D5 1/2 NS at 30cc/hr. Suprapubic cath noted. Bed in the lowest position. Side rails up x3. Will continue to monitor.
[2020-07-03] MEDS ORDERED: Doxycycline Hyclate 100 MG in D5W 110 ML IV SCH (21:00)
--- NOTE | 2020-07-03 22:00 | NUR ---
NURSE NOTES: Pt transferred to ICU due to need of dopamine drip to be titrated. BP 85/40, on 5mcg dopamine drip. HR of 71. On bipap at this time, 15/5, 100%, saturation at 100%. notified and was told to call ER doctor regarding central line. Left a message to ER MD. No family member noted to get consent. Will continue to monitor.
--- NOTE | 2020-07-03 23:52 | NUR ---
NURSE NOTES: Pt BP of 86/44 on 5mcg dopamine, awaiting for central line. SR noted. On bipap 15/5,100%, saturating at 100%. IV site intact. Will continue to monitor.
[2020-07-04] VITALS (30 sets, daily range): BP systolic 40–137; BP diastolic 17–90
--- NOTE | 2020-07-04 00:56 | Emergency Room Report ---
History of Present Illness General Chief Complaint: Dyspnea/Respdistress Source: Medical Record Present Illness Allergies: Coded Allergies: No Known Allergies (Unverified , 09/25/17) COVID-19 Screening Contact w/high risk pt: Yes Experienced COVID-19 symptoms?: Yes COVID-19 Testing performed SOA ENGINEER: No COVID-19 Screening: Positive COVID-19 Nursing Documentation-PMH Past Medical History Deferred: Pt Cognitively Impaired Past Medical History: No History, Except For Hx Cardiac Problems: Yes - HF, AFIB Hx Hypertension: Yes Hx COPD: Yes Hx Diabetes: Yes Hx Cancer: No Hx Gastrointestinal Problems: Yes - GERD, ETOH ABUSE Hx Dialysis: Yes - [facility] Hx Neurological Problems: Yes Hx Seizures: Yes Physical Exam Vital Signs Date Time Temp Pulse Resp B/P (MAP) Pulse Ox O2 Delivery O2 Flow Rate FiO2 07/03/20 06:20 98.4 49 12 54/21 (32) 94 Non-Rebreather 15.0 07/03/20 12:00 100 Procedures Central Line Central Line : Consent: Emergent Central Line Lumen: triple Maximal Sterile Barrier Tech: yes cap, yes mask, yes sterile gown, yes sterile gloves, yes large sterile sheet, yes hand hygiene, yes chlorhexidine prep Central Line Postion: femoral (R) Anesthesia: local cc's of anesthesia: 5 US Guided Line?: No Vessel visualized with U/S: Right Femoral Vein Complications: none Central Line Post Position: sutured, good blood return Attempts: One Patient Tolerated: Well Complications: None Medical Decision Making Diagnostic Impression: Primary Impression: Prolonged QT interval Additional Impressions: Pneumonia due to COVID-19 virus Elevated troponin UTI (urinary tract infection) Hypotension Hyperkalemia ER Course This is a 69-year-old male who is admitted to the ICU for Covid pneumonia and septic shock. I was asked to do a central line for pressors. I placed a triple-lumen catheter in the right femoral vein under sterile condition. Patient tolerated procedure without any problem. No complication. Last Vital Signs Date Time Temp Pulse Resp B/P (MAP) Pulse Ox O2 Delivery O2 Flow Rate FiO2 07/04/20 00:00 Bi-pap 15.0 07/04/20 00:00 100 07/04/20 00:00 97.5 71 16 85/42 (56) 99 Disposition: ADMITTED INPATIENT Condition: Serious Referrals: Nery Quezada MD (PCP) Ron Hudson MD Jul 04, 2020 00:56
--- NOTE | 2020-07-04 01:00 | NUR ---
NURSE NOTES: ER MD placed central line on R femoral, asymptomatic, intact, okay to use, now running dopamine at 4mcg; will titrate per protocol, BP 88/42 noted. Will continue to monitor.
[2020-07-04] MEDS: DOPamine 400mg/250ml 250 ML IV SCH ×3 (01:07→15:09)
--- NOTE | 2020-07-04 02:34 | NUR ---
NURSE NOTES: Dopamine at 10mcg at this time, BP of 92/47 noted at this time. On bipap 15/5, 100%, saturating 100% at this time. Will continue to monitor.
--- NOTE | 2020-07-04 04:29 | NUR ---
NURSE NOTES: Dopamine now running at 20mcg, BP 101/65 noted at this time. On bipap /, 100%. Bed bath given. Reposition done. Will continue to monitor.
[2020-07-04 05:29] LABS: HEMATOCRIT 25.5 % (42.0-52.0); HEMOGLOBIN 8.5 G/DL (14.2-18.0); MEAN CORPUSCULAR VOLUME 92 FL (80-99); PLATELET COUNT 31 K/UL (150-450); RED BLOOD COUNT 2.77 M/UL (4.70-6.10); RED CELL DISTRIBUTION WIDTH 17.6 % (11.6-14.8)
--- NOTE | 2020-07-04 05:52 | NUR ---
NURSE NOTES: BP 90/54 noted with dopamine running at 50mcg. On bipap, 15/5, 100%, saturating at 100% at this time. Reposition done. Will continue to monitor.
[2020-07-04] MEDS: NovoLOG Insulin Flexpen SUBQ SCH ×4 (06:30→20:52)
[2020-07-04 06:51] LABS: ALANINE AMINOTRANSFERASE 42 U/L (12-78); ALBUMIN 2.4 G/DL (3.4-5.0); ALKALINE PHOSPHATASE 216 U/L (46-116); ANION GAP 20 mmol/L (5-15); ASPARTATE AMINO TRANSFERASE 186 U/L (15-37); BILIRUBIN,DIRECT 0.6 MG/DL (0.0-0.3); BLOOD UREA NITROGEN 109 mg/dL (7-18); CALCIUM 6.6 MG/DL (8.5-10.1); CARBON DIOXIDE 16 MMOL/L (21-32); CHLORIDE 105 MMOL/L (98-107); CREATININE 8.7 MG/DL (0.55-1.30); PHOSPHORUS 8.2 MG/DL (2.5-4.9); POTASSIUM 5.7 MMOL/L (3.5-5.1); SODIUM 141 MMOL/L (136-145)
--- NOTE | 2020-07-04 07:19 | NUR ---
NURSE HAND-OFF REPORT: notified regarding pt bp of 80s/40 with dopamine 20mcg, new order received; levophed, will be carried out. Latest Vital Signs: Temperature 97.0 , Pulse 72 , B/P 93 /50 , Respiratory Rate 20 , O2 SAT 100 , Non-Rebreather, O2 Flow Rate 15.0 . Vital Sign Comment: [] EKG Rhythm: Sinus Rhythm Rhythm change?: N MD Notified?: - MD Response: Latest Joaquin Fall Score: 50 Fall Risk: High Risk Safety Measures: Call light Within Reach, Bed Alarm Zone 1, Side Rails Side Rails x3, Bed position Low and Locked. Fall Precautions: Patient Fall Education Report given to YU Teran.
--- NOTE | 2020-07-04 07:30 | NUR ---
NURSE NOTES: Received report from YU Delong. The patient is resting on the bed but being agitated, anxious, hard to be consoled, and uncooperative in medical care. The patient is AOx2 and confused. SR w/ HR of 70-80s on the rn cardiac rehab. The patient is on Bipap 15/5 FiO2 100% and SpO2 is 100%. The patient has Renal diet but unable to tolerate PO at this time due to continuous Bipap use and worsening of the patient's condition. The patient has suprapubic catheter that is intact and patent and minimal UOP noted. Skin issue noted and dressing intact. The patient has R FA 20G and R FA 22G PIVs and R femoral TLC those are intact and patent and running Dopamine @ 20mcg/kg/min but SBP is 80s now and D5 1/2NS @ 30mL/hr per order. Just obtained order from Dr. Moran for additional levophed order for blood pressure support. The patient's bed in the lowest position, call light in reach, and fall, aspiration, seizure precaution reinforced. IV sites intact and patent. Will follow up the order and lab. Will closely monitor the patient. Will continue plan of care.
--- NOTE | 2020-07-04 08:00 | NUR ---
NURSE NOTES: Notified abnormal lab including Hgb 8.5, Plt 31, D-dimer 1.74, K 5.7, BUN 109, Cr 8.7, Lactic acid 2.2 to 3.0, CK 1603, CK-MB 7.1, Troponin elevation from 1.295 to 1.607, BNP >93405, and positive urine culture result. No new order at this time. Will closely monitor the patient. Will continue plan of care.
[2020-07-04] MEDS: D5 1/2NS 1,000 ML IV SCH (08:04)
--- NOTE | 2020-07-04 08:06 | Nephrology Progress Note ---
Assessment/Plan Plan Covid 19 Pneumonia - per ID. Septic Shock - low IV hydration , pressors. ESRD without operating access - DW Dr. Sanabria - for Junior cath soon. Another trial of HD today. May not tolerate due to hypotension. Subjective Subjective Obtunded, confused. Objective Objective Last 24 Hour Vital Signs Date Time Temp Pulse Resp B/P (MAP) Pulse Ox O2 Delivery O2 Flow Rate FiO2 07/04/20 07:22 77/46 07/04/20 07:05 72 20 100 100 07/04/20 07:00 74 18 93/50 (64) 100 07/04/20 06:22 96/66 07/04/20 06:00 77 19 88/52 (64) 100 07/04/20 05:22 90/54 07/04/20 05:00 79 18 91/47 (62) 07/04/20 04:22 101/65 07/04/20 04:07 88/48 07/04/20 04:00 80 07/04/20 04:00 100 07/04/20 04:00 97.0 85 21 91/47 (62) 100 07/04/20 04:00 Bi-pap 15.0 07/04/20 03:52 89/47 07/04/20 03:37 87/49 07/04/20 03:22 88/40 07/04/20 03:07 87/45 07/04/20 03:00 83 21 87/45 (59) 07/04/20 02:07 92/50 07/04/20 02:00 80 19 86/49 (61) 100 07/04/20 01:52 87/48 07/04/20 01:49 77 20 98 100 07/04/20 01:37 82/60 07/04/20 01:22 87/50 07/04/20 01:07 85/42 07/04/20 01:00 75 19 94/47 (63) 100 07/04/20 00:00 72 07/04/20 00:00 Bi-pap 15.0 07/04/20 00:00 100 07/04/20 00:00 97.5 71 16 85/42 (56) 99 07/03/20 23:45 72 17 86/44 (58) 100 07/03/20 23:30 73 17 90/40 (57) 99 07/03/20 23:15 71 16 85/44 (58) 100 07/03/20 23:00 70 17 88/39 (55) 100 07/03/20 22:18 74 16 94 100 07/03/20 20:00 98.4 65 30 82/39 (53) 92 07/03/20 20:00 15.0 100 07/03/20 20:00 72 07/03/20 20:00 Non-Rebreather 15.0 07/03/20 16:30 72/34 07/03/20 16:00 97.3 61 28 76/52 (60) 94 07/03/20 16:00 15.0 100 07/03/20 16:00 61 07/03/20 16:00 Non-Rebreather 15.0 07/03/20 12:00 92.9 56 22 111/44 (66) 96 07/03/20 12:00 56 07/03/20 12:00 15.0 100 07/03/20 11:50 Non-Rebreather 15.0 07/03/20 10:24 Non-Rebreather 15.0 07/03/20 09:10 98.4 71 20 99/85 99 Non-Rebreather 15.0 07/03/20 08:43 98.4 64 21 88/55 99 Non-Rebreather 15.0 Intake and Output 07/03/20 07/04/20 19:00 07:00 Intake Total 30 ml 575.325 ml Output Total 10 ml Balance 30 ml 565.325 ml Intake IV Total 30 ml 575.325 ml Output Urine Total 10 ml Laboratory Tests 07/03/20 08:06: Lactic Acid Level 2.20 07/03/20 11:29: Arterial Blood pH 7.257L, Arterial Blood Partial Pressure CO2 29.2L, Arterial Blood Partial Pressure O2 78.3, Arterial Blood HCO3 12.7*L, Arterial Blood Oxygen Saturation 90.0L, Arterial Blood Base Excess -13.1*L, Trevor Test Positive 07/03/20 21:13: POC Whole Blood Glucose 101 07/04/20 00:22: POC Whole Blood Glucose 260H 07/04/20 04:30: White Blood Count 7.0, Red Blood Count 2.77L, Hemoglobin 8.5L, Hematocrit 25.5L, Mean Corpuscular Volume 92, Mean Corpuscular Hemoglobin 30.8, Mean Corpuscular Hemoglobin Concent 33.3, Red Cell Distribution Width 17.6H, Platelet Count 31L, Mean Platelet Volume 12.4H, Neutrophils (%) (Auto) , Lymphocytes (%) (Auto) , Monocytes (%) (Auto) , Eosinophils (%) (Auto) , Basophils (%) (Auto) , Neutrophils % (Manual) [Pending], Lymphocytes % (Manual) [Pending], Platelet Estimate [Pending], Platelet Morphology [Pending], Sodium Level 141, Potassium Level 5.7H, Chloride Level 105, Carbon Dioxide Level 16L, Anion Gap 20H, Blood Urea Nitrogen 109H, Creatinine 8.7H, Estimat Glomerular Filtration Rate 6.1, Glucose Level 141H, Calcium Level 6.6L, Phosphorus Level 8.2H, Total Bilirubin 1.0, Direct Bilirubin 0.6H, Aspartate Amino Transf (AST/SGOT) 186H, Alanine Aminotransferase (ALT/SGPT) 42, Alkaline Phosphatase 216H, Total Protein 6.7, Albumin 2.4L Height (Feet): 5 Height (Inches): 7.00 Weight (Pounds): 88 Objective Confused. On Levo+ Dopa drips. Warm periphery!! Cv RRLungs B Ronchi Abd SNT. BS diminished. E No CCE. B BKA Stumps clean. NEREIDA AVF no bruit. Neuro - responsive but confused. Nonfocal. Nery Quezada MD Jul 04, 2020 08:06
--- NOTE | 2020-07-04 08:40 | Infectious Diseases Prog Note ---
Assessment/Plan Assessment/Plan IMPRESSION: Sepsis with septic shock Gram negative sepsis COVID-19 disease, UTI. He has End-stage renal disease, on hemodialysis. ?line infection, Diabetes mellitus type 2, Cachexia, Thrombocytopenia, Hyperkalemia, Anemia. RECOMMENDATION: Continue dexamethasone, Discontinue doxycycline, ceftriaxone Start on Meropenem Continue vancomycin. Will f/u cultures Subjective ROS Limited/Unobtainable: Yes Constitutional: Reports: other - transferred to ICU Cardiovascular: Reports: other - on Dopamine & Levophed Neurologic: Reports: confusion, other - on restraint Allergies: Coded Allergies: No Known Allergies (Unverified , 09/25/17) Objective Last 24 Hour Vital Signs Date Time Temp Pulse Resp B/P (MAP) Pulse Ox O2 Delivery O2 Flow Rate FiO2 07/04/20 08:04 93/64 07/04/20 07:22 77/46 07/04/20 07:05 72 20 100 100 07/04/20 07:00 74 18 93/50 (64) 100 07/04/20 06:22 96/66 07/04/20 06:00 77 19 88/52 (64) 100 07/04/20 05:22 90/54 07/04/20 05:00 79 18 91/47 (62) 07/04/20 04:22 101/65 07/04/20 04:07 88/48 07/04/20 04:00 80 07/04/20 04:00 100 07/04/20 04:00 97.0 85 21 91/47 (62) 100 07/04/20 04:00 Bi-pap 15.0 07/04/20 03:52 89/47 07/04/20 03:37 87/49 07/04/20 03:22 88/40 07/04/20 03:07 87/45 07/04/20 03:00 83 21 87/45 (59) 07/04/20 02:07 92/50 07/04/20 02:00 80 19 86/49 (61) 100 07/04/20 01:52 87/48 07/04/20 01:49 77 20 98 100 07/04/20 01:37 82/60 07/04/20 01:22 87/50 07/04/20 01:07 85/42 07/04/20 01:00 75 19 94/47 (63) 100 07/04/20 00:00 72 07/04/20 00:00 Bi-pap 15.0 07/04/20 00:00 100 07/04/20 00:00 97.5 71 16 85/42 (56) 99 07/03/20 23:45 72 17 86/44 (58) 100 07/03/20 23:30 73 17 90/40 (57) 99 07/03/20 23:15 71 16 85/44 (58) 100 07/03/20 23:00 70 17 88/39 (55) 100 07/03/20 22:18 74 16 94 100 07/03/20 20:00 98.4 65 30 82/39 (53) 92 07/03/20 20:00 15.0 100 07/03/20 20:00 72 07/03/20 20:00 Non-Rebreather 15.0 07/03/20 16:30 72/34 07/03/20 16:00 97.3 61 28 76/52 (60) 94 07/03/20 16:00 15.0 100 07/03/20 16:00 61 07/03/20 16:00 Non-Rebreather 15.0 07/03/20 12:00 92.9 56 22 111/44 (66) 96 07/03/20 12:00 56 07/03/20 12:00 15.0 100 07/03/20 11:50 Non-Rebreather 15.0 07/03/20 10:24 Non-Rebreather 15.0 07/03/20 09:10 98.4 71 20 99/85 99 Non-Rebreather 15.0 07/03/20 08:43 98.4 64 21 88/55 99 Non-Rebreather 15.0 Height (Feet): 5 Height (Inches): 7.00 Weight (Pounds): 88 HEENT: mucous membranes moist Respiratory/Chest: other - on BIPAP, RWC7=797% Cardiovascular: bradycardia, other - Permacath & AV graft Abdomen: soft, non tender Extremities: no edema Neurologic/Psychiatric: disoriented Microbiology Date/Time Source Procedure Growth Status 07/03/20 07:40 Rectum Received 07/03/20 06:40 Urine,Clean Catch Urine Culture - Preliminary Gram Negative Kulwinder Resulted 07/03/20 06:40 Nasopharynx SARS-CoV-2 RdRp Gene Assay - Final Complete 07/03/20 06:40 Nasal Nares - Final Complete 07/03/20 06:40 Nasal Nares - Final Complete 07/03/20 06:40 Blood Blood Culture - Preliminary Resulted 07/03/20 06:25 Blood Blood Culture - Preliminary Resulted Laboratory Tests Test 07/03/20 11:29 07/03/20 21:13 07/04/20 00:22 07/04/20 04:30 Arterial Blood pH 7.257 (7.350-7.450) Arterial Blood Partial Pressure CO2 29.2 mmHg (35.0-45.0) L Arterial Blood Partial Pressure O2 78.3 mmHg (75.0-100.0) Arterial Blood HCO3 12.7 mmol/L (22.0-26.0) *L Arterial Blood Oxygen Saturation 90.0 % (95-100) L Arterial Blood Base Excess -13.1 (-2-2) *L Trevor Test Positive POC Whole Blood Glucose 101 MG/DL (74-106) 260 MG/DL (74-106) H White Blood Count 7.0 K/UL (4.8-10.8) Red Blood Count 2.77 M/UL (4.70-6.10) L Hemoglobin 8.5 G/DL (14.2-18.0) L Hematocrit 25.5 % (42.0-52.0) L Mean Corpuscular Volume 92 FL (80-99) Mean Corpuscular Hemoglobin 30.8 PG (27.0-31.0) Mean Corpuscular Hemoglobin Concent 33.3 G/DL (32.0-36.0) Red Cell Distribution Width 17.6 % (11.6-14.8) H Platelet Count 31 K/UL (150-450) L Mean Platelet Volume 12.4 FL (6.5-10.1) H Neutrophils (%) (Auto) % (45.0-75.0) Lymphocytes (%) (Auto) % (20.0-45.0) Monocytes (%) (Auto) % (1.0-10.0) Eosinophils (%) (Auto) % (0.0-3.0) Basophils (%) (Auto) % (0.0-2.0) Neutrophils % (Manual) Pending Lymphocytes % (Manual) Pending Platelet Estimate Pending Platelet Morphology Pending Sodium Level 141 MMOL/L (136-145) Potassium Level 5.7 MMOL/L (3.5-5.1) H Chloride Level 105 MMOL/L (98-107) Carbon Dioxide Level 16 MMOL/L (21-32) L Anion Gap 20 mmol/L (5-15) H Blood Urea Nitrogen 109 mg/dL (7-18) H Creatinine 8.7 MG/DL (0.55-1.30) H Estimat Glomerular Filtration Rate 6.1 mL/min (>60) Glucose Level 141 MG/DL (74-106) H Calcium Level 6.6 MG/DL (8.5-10.1) L Phosphorus Level 8.2 MG/DL (2.5-4.9) H Total Bilirubin 1.0 MG/DL (0.2-1.0) Direct Bilirubin 0.6 MG/DL (0.0-0.3) H Aspartate Amino Transf (AST/SGOT) 186 U/L (15-37) H Alanine Aminotransferase (ALT/SGPT) 42 U/L (12-78) Alkaline Phosphatase 216 U/L (46-116) H Troponin I Pending Total Protein 6.7 G/DL (6.4-8.2) Albumin 2.4 G/DL (3.4-5.0) L Test 07/04/20 08:20 Lactic Acid Level Pending Current Medications Medications (Trade) Dose Ordered Sig/Joe Route PRN Reason Start Time Stop Time Status Last Admin Dose Admin Albumin Human 100 ml @ 200 mls/hr PRN PRN IV sbp<90 during hd 07/05/20 08:15 07/05/20 23:59 Albuterol Sulfate (Proventil MDI) 2 puff Q4H PRN INH Shortness of Breath 07/03/20 12:30 10/01/20 12:29 Ceftriaxone Sodium 1 gm/ Dextrose 55 ml @ 110 mls/hr Q24H IVPB 07/04/20 09:00 07/11/20 08:59 Chlorhexidine Gluconate (Falguni-Hex 2%) 1 applic DAILY@2000 TOPIC 07/04/20 20:00 10/02/20 19:59 Dexamethasone Sodium Phosphate (Decadron 10mg/ ml Inj) 6 mg DAILY IV 07/04/20 09:00 07/12/20 09:01 Dextrose (Dextrose 50%) 25 ml Q30M PRN IV Hypoglycemia 07/03/20 11:00 10/01/20 10:59 Dextrose (Dextrose 50%) 50 ml Q30M PRN IV Hypoglycemia 07/03/20 11:00 10/01/20 10:59 07/03/20 12:44 Dextrose/Sodium Chloride 1,000 ml @ 30 mls/hr Q24H IV 07/03/20 13:15 08/02/20 13:14 07/04/20 08:04 Dopamine HCl/ Dextrose 250 ml @ 6.21 mls/hr Q24H IV 07/04/20 01:30 07/07/20 01:29 07/04/20 08:04 Doxycycline Hyclate 100 mg/ Dextrose 110 ml @ 110 mls/hr Q12HR IV 07/03/20 21:00 07/10/20 20:59 07/03/20 22:45 Heparin Sodium (Porcine) (Heparin Sod 1000 units/ml 10ml) 2,000 unit ONCE ONCE IV 07/05/20 08:15 07/05/20 08:16 Heparin Sodium (Porcine) (Heparin) 1,000 unit POSTHD INJ 07/05/20 08:15 07/05/20 08:16 Insulin Aspart (NovoLOG) BEFORE MEALS AND HS SUBQ 07/03/20 12:30 10/01/20 12:29 Norepinephrine Bitartrate 4 mg/ Dextrose 250 ml @ 0 mls/hr Q24H IV 07/04/20 08:00 07/07/20 07:59 07/04/20 07:22 Sodium Chloride 1,000 ml @ 500 mls/hr Q2H PRN IVLG sbp<90 during hd 07/05/20 08:15 07/05/20 23:59 Vancomycin HCl (Vanco pharmacy to dose) 1 ea DAILY PRN MISC Per rx protocol 07/03/20 11:00 08/02/20 10:59 Emir Madsen MD Jul 04, 2020 08:40
[2020-07-04] MEDS ORDERED: dexAMETHasone 10mg/ml Inj IV SCH (09:00)
[2020-07-04] MEDS ORDERED: cefTRIAXone 1gm/D5W 55ml IVPB SCH ×2 (09:00)
--- NOTE | 2020-07-04 09:00 | NUR ---
NURSE NOTES: Dr. Madsen at the bedside assessed the patient. Notified positive urine culture result and presence of suprapubic catheter. Per Dr. Madsen, administer Doxycycline and Ceftriaxone last dose and start on Meropenem per order. Will closely monitor the patient. Will continue plan of care.
--- NOTE | 2020-07-04 10:00 | NUR ---
NURSE NOTES: BS 122 noted. Medications administered per order. The patient tolerated well. Will closely monitor the patient. Will continue plan of care.
[2020-07-04] MEDS ORDERED: Meropenem 500 MG in NS 55 ML IVPB SCH (11:00)
--- NOTE | 2020-07-04 11:30 | NUR ---
NURSE NOTES: Notified abnormal ABG result. No new at this time. Will closely monitor the patient. Will continue plan of care.
--- NOTE | 2020-07-04 12:00 | NUR ---
NURSE NOTES: BS 161 noted. Novolog administered per protocol. Will closely monitor the patient. Will continue plan of care.
--- NOTE | 2020-07-04 12:30 | NUR ---
NURSE NOTES: L femoral Junior cath for HD access inserted by Dr. Batres. Consented by Dr. Moran and Dr. Batres since no next of kin and no family member. Will continue plan of care.
--- NOTE | 2020-07-04 13:30 | NUR ---
NURSE NOTES: Dr. Moran ordered the patient to get stat HD. Called [facility] for the order. Will closely monitor the patient. Will continue plan of care.
--- NOTE | 2020-07-04 14:00 | NUR ---
NURSE NOTES: Started stat HD per Dr. Moran's order. The patient is tolerating well. Will closely monitor the patient. Will continue plan of care. Addendum: 07/04/20 at 1612 by Anton Ramirez RN HD consented by Dr. Moran and Dr. Batres. Will continue plan of care.
--- NOTE | 2020-07-04 14:12 | Operative Note - PDOC ---
Operative Note Operative Note Date of Operation/Procedure: Jul 04, 2020 Pre-op Diagnosis: malfunctioning dialysis catheter and AV shunt Procedure: left femoral temporary hemodialysis line insertion Post-op Diagnosis: same as pre-op Surgeon: lela batres md Anesthesia: local Specimen: none Complications: none Condition: unstable Fluids: see Estimated Blood Loss: minimal Drains: none Implant(s) used?: No Indications for Procedure This is a 69-year-old male long history of renal insufficiency on dialysis has a AV fine shunt that is nonfunctional as well as a right permacath that is currently clotted. Patient needs emergent dialysis and does not have access. Emergency line placement [place] recommended for patient to receive dialysis. Description of Procedure Patient made comfortable the bedside with nursing staff present. The left groin was prepped draped in the same surgical fashion. Local anesthetic was infiltra reshma and Topamax identified. The right femoral vein was cannulated on first stick without complication. Good venous flow identified. Guidewire placed through the needle needle removed. Small skin incision made around the guidewire and the tract was dilated through the guidewire without complication. A 13 Kinyarwanda triple-lumen temporary hemodialysis catheter was inserted over guid ewire without complication. Guidewire removed and discarded. Line sutured in place. All ports flushed and aspirated venous blood appropriately without complication. Dressings were applied. Patient taught procedure well. Plan for hemodialysis urgently. Lela Batres Jul 04, 2020 14:12
--- NOTE | 2020-07-04 16:00 | Cardiology Progress Note ---
Subjective Subjective [id number] Objective Last 24 Hour Vital Signs Date Time Temp Pulse Resp B/P (MAP) Pulse Ox O2 Delivery O2 Flow Rate FiO2 07/04/20 15:14 115/98 07/04/20 15:09 104/90 07/04/20 15:00 111 20 104/90 (95) 100 07/04/20 14:00 84 23 126/60 (82) 100 07/04/20 13:34 87 24 100 100 07/04/20 13:00 79 21 108/57 (74) 100 07/04/20 12:00 97.3 77 20 105/53 (70) 100 07/04/20 12:00 100 07/04/20 11:55 Bi-pap 07/04/20 11:23 80 07/04/20 11:00 77 21 108/62 (77) 100 07/04/20 10:00 76 20 100/63 (75) 94 07/04/20 09:00 79 20 98/66 (77) 100 07/04/20 08:04 93/64 07/04/20 08:00 97.2 79 20 93/64 (74) 100 07/04/20 08:00 100 07/04/20 08:00 79 07/04/20 08:00 Bi-pap 07/04/20 07:22 77/46 07/04/20 07:05 72 20 100 100 07/04/20 07:00 74 18 93/50 (64) 100 07/04/20 06:22 96/66 07/04/20 06:00 77 19 88/52 (64) 100 07/04/20 05:22 90/54 07/04/20 05:00 79 18 91/47 (62) 07/04/20 04:22 101/65 07/04/20 04:07 88/48 07/04/20 04:00 80 07/04/20 04:00 100 07/04/20 04:00 97.0 85 21 91/47 (62) 100 07/04/20 04:00 Bi-pap 15.0 07/04/20 03:52 89/47 07/04/20 03:37 87/49 07/04/20 03:22 88/40 07/04/20 03:07 87/45 07/04/20 03:00 83 21 87/45 (59) 07/04/20 02:07 92/50 07/04/20 02:00 80 19 86/49 (61) 100 07/04/20 01:52 87/48 07/04/20 01:49 77 20 98 100 07/04/20 01:37 82/60 07/04/20 01:22 87/50 07/04/20 01:07 85/42 07/04/20 01:00 75 19 94/47 (63) 100 07/04/20 00:00 72 07/04/20 00:00 Bi-pap 15.0 07/04/20 00:00 100 07/04/20 00:00 97.5 71 16 85/42 (56) 99 07/03/20 23:45 72 17 86/44 (58) 100 07/03/20 23:30 73 17 90/40 (57) 99 07/03/20 23:15 71 16 85/44 (58) 100 07/03/20 23:00 70 17 88/39 (55) 100 07/03/20 22:18 74 16 94 100 07/03/20 20:00 98.4 65 30 82/39 (53) 92 07/03/20 20:00 15.0 100 07/03/20 20:00 72 07/03/20 20:00 Non-Rebreather 15.0 07/03/20 16:30 72/34 07/03/20 16:00 97.3 61 28 76/52 (60) 94 07/03/20 16:00 15.0 100 07/03/20 16:00 61 07/03/20 16:00 Non-Rebreather 15.0 Intake and Output 07/03/20 07/04/20 19:00 07:00 Intake Total 30 ml 575.325 ml Output Total 10 ml Balance 30 ml 565.325 ml Intake IV Total 30 ml 575.325 ml Output Urine Total 10 ml Laboratory Tests Test 07/03/20 21:13 07/04/20 00:22 07/04/20 04:30 07/04/20 06:13 POC Whole Blood Glucose 101 MG/DL (74-106) 260 MG/DL (74-106) H 126 MG/DL (74-106) H White Blood Count 7.0 K/UL (4.8-10.8) Red Blood Count 2.77 M/UL (4.70-6.10) L Hemoglobin 8.5 G/DL (14.2-18.0) L Hematocrit 25.5 % (42.0-52.0) L Mean Corpuscular Volume 92 FL (80-99) Mean Corpuscular Hemoglobin 30.8 PG (27.0-31.0) Mean Corpuscular Hemoglobin Concent 33.3 G/DL (32.0-36.0) Red Cell Distribution Width 17.6 % (11.6-14.8) H Platelet Count 31 K/UL (150-450) L Mean Platelet Volume 12.4 FL (6.5-10.1) H Neutrophils (%) (Auto) % (45.0-75.0) Lymphocytes (%) (Auto) % (20.0-45.0) Monocytes (%) (Auto) % (1.0-10.0) Eosinophils (%) (Auto) % (0.0-3.0) Basophils (%) (Auto) % (0.0-2.0) Differential Total Cells Counted 100 Neutrophils % (Manual) 77 % (45-75) H Lymphocytes % (Manual) 10 % (20-45) L Monocytes % (Manual) 3 % (1-10) Eosinophils % (Manual) 0 % (0-3) Basophils % (Manual) 0 % (0-2) Band Neutrophils 10 % (0-8) H Platelet Estimate Decreased L Platelet Morphology Giant Platelets Occasional Hypochromasia 1+ Anisocytosis 1+ Sodium Level 141 MMOL/L (136-145) Potassium Level 5.7 MMOL/L (3.5-5.1) H Chloride Level 105 MMOL/L (98-107) Carbon Dioxide Level 16 MMOL/L (21-32) L Anion Gap 20 mmol/L (5-15) H Blood Urea Nitrogen 109 mg/dL (7-18) H Creatinine 8.7 MG/DL (0.55-1.30) H Estimat Glomerular Filtration Rate 6.1 mL/min (>60) Glucose Level 141 MG/DL (74-106) H Calcium Level 6.6 MG/DL (8.5-10.1) L Phosphorus Level 8.2 MG/DL (2.5-4.9) H Total Bilirubin 1.0 MG/DL (0.2-1.0) Direct Bilirubin 0.6 MG/DL (0.0-0.3) H Aspartate Amino Transf (AST/SGOT) 186 U/L (15-37) H Alanine Aminotransferase (ALT/SGPT) 42 U/L (12-78) Alkaline Phosphatase 216 U/L (46-116) H Troponin I 1.607 ng/mL (0.000-0.056) Total Protein 6.7 G/DL (6.4-8.2) Albumin 2.4 G/DL (3.4-5.0) L Test 07/04/20 08:17 07/04/20 08:20 07/04/20 10:40 07/04/20 13:18 POC Whole Blood Glucose 122 MG/DL (74-106) H 161 MG/DL (74-106) H Lactic Acid Level 3.00 mmol/L (0.4-2.0) H 3.50 mmol/L (0.66-2.22) H Random Vancomycin Level 13.7 ug/mL Microbiology Date/Time Source Procedure Growth Status 07/03/20 07:40 Rectum Received 07/03/20 06:40 Urine,Clean Catch Urine Culture - Preliminary Proteus Mirabilis Gram Negative Kulwinder Resulted 07/03/20 06:40 Nasopharynx SARS-CoV-2 RdRp Gene Assay - Final Complete 07/03/20 06:40 Nasal Nares - Final Complete 07/03/20 06:40 Nasal Nares - Final Complete 07/03/20 06:40 Blood Blood Culture - Preliminary Gram Negative Kulwinder Resulted 07/03/20 06:25 Blood Blood Culture - Preliminary Gram Negative Kulwinder Resulted Sunshine Kern MD Jul 04, 2020 16:00
--- NOTE | 2020-07-04 16:15 | NUR ---
NURSE NOTES: HD completed in a safe manner. The patient tolerated well. Will closely monitor the patient. Will continue plan of care.
--- NOTE | 2020-07-04 17:30 | NUR ---
NURSE NOTES: Bed bath given to the patient. The patient tolerated well. Will closely monitor the patient. Will continue plan of care.
--- NOTE | 2020-07-04 17:55 | NUR ---
ATTEMPTED MULTIPLE ABG BY DIFFERENT RT'S. UNABLE TO GET A ACCURATE READING ON ALL ATTEMPTS. Addendum: 07/04/20 at 1757 by Tigre Chavez RT Amended: Links added.
[2020-07-04] MEDS ORDERED: Vancomycin 750mg/NS 275ml IVPB ONE ×2 (18:00)
--- NOTE | 2020-07-04 18:00 | NUR ---
NURSE NOTES: BS 94 noted. No insulin per protocol. Will closely monitor the patient. Will continue plan of care.
--- NOTE | 2020-07-04 19:30 | NUR ---
NURSE NOTES: Received pt cofused, combative when turned, On Bipap 15/5 with fio2 100%, SR-St on the monitor, Bp been supported with Dopamine drip at 11mcg/kg/min. levophed drip at 11mcg/min, D51/2NS at 30ml/hr infusing well RT femoral central line with drsg dry and intactl Left femoral side with Dialysis cath. Site with drsg dry and intact, Suprapubic cath with modrte amt of yellowish urine coming out, . Sacral area with scaral discoloration VS pressure sores, covered with optofoa clean anfd dry will continue to monitor.
--- NOTE | 2020-07-04 19:30 | NUR ---
NURSE HAND-OFF REPORT: Important Events on Shift: Dopamine 11mcg/kg/min, Levophed 11mcg/min, HD done per order_ 0 out, only ultrafiltration, Junior cath placement by Dr. Batres. Patient Status: Full code Diet: Renal diet but kept in NPO due to continuous Bipap use. Pending Orders: N Pending Results/Labs: N Pending MD notification: N Latest Vital Signs: Temperature 97.0 , Pulse 107 , B/P 115 /59 , Respiratory Rate 23 , O2 SAT 100 , Bipap, O2 Flow Rate 15/5 FiO2 100%. Vital Sign Comment: EKG Rhythm: Sinus Tachycardia Rhythm change?: N MD Notified?: - MD Response: Latest Joaquin Fall Score: 50 Fall Risk: High Risk Safety Measures: Call light Within Reach, Bed Alarm Zone 2, Side Rails Side Rails x3, Bed position Low and Locked. Fall Precautions: Yellow Socks Yellow Gown Door Sign Patient Fall Education Report given to YU Arita. The patient is stable at this time. Endorsed plan of care.
[2020-07-04] MEDS ORDERED: Dyna-Hex 2% Top Sol 2oz TOPIC SCH (20:00)
--- NOTE | 2020-07-04 20:01 | Pulmonology Progress Note ---
Subjective ROS Limited/Unobtainable: Yes Constitutional: Reports: other - transferred to ICU Allergies: Coded Allergies: No Known Allergies (Unverified , 09/25/17) Objective Last 24 Hour Vital Signs Date Time Temp Pulse Resp B/P (MAP) Pulse Ox O2 Delivery O2 Flow Rate FiO2 07/04/20 19:00 107 23 115/59 (77) 100 07/04/20 18:00 97 19 119/64 (82) 96 07/04/20 17:00 115 22 137/68 (91) 100 07/04/20 16:00 111 07/04/20 16:00 97.0 112 23 131/73 (92) 95 07/04/20 16:00 100 07/04/20 16:00 Bi-pap 07/04/20 15:14 115/98 07/04/20 15:09 104/90 07/04/20 15:00 111 20 104/90 (95) 100 07/04/20 14:00 84 23 126/60 (82) 100 07/04/20 13:34 87 24 100 100 07/04/20 13:00 79 21 108/57 (74) 100 07/04/20 12:00 97.3 77 20 105/53 (70) 100 07/04/20 12:00 100 07/04/20 11:55 Bi-pap 07/04/20 11:23 80 07/04/20 11:00 77 21 108/62 (77) 100 07/04/20 10:00 76 20 100/63 (75) 94 07/04/20 09:00 79 20 98/66 (77) 100 07/04/20 08:04 93/64 07/04/20 08:00 97.2 79 20 93/64 (74) 100 07/04/20 08:00 100 07/04/20 08:00 79 07/04/20 08:00 Bi-pap 07/04/20 07:22 77/46 07/04/20 07:05 72 20 100 100 07/04/20 07:00 74 18 93/50 (64) 100 07/04/20 06:22 96/66 07/04/20 06:00 77 19 88/52 (64) 100 07/04/20 05:22 90/54 07/04/20 05:00 79 18 91/47 (62) 07/04/20 04:22 101/65 07/04/20 04:07 88/48 07/04/20 04:00 80 07/04/20 04:00 100 07/04/20 04:00 97.0 85 21 91/47 (62) 100 07/04/20 04:00 Bi-pap 15.0 07/04/20 03:52 89/47 07/04/20 03:37 87/49 07/04/20 03:22 88/40 07/04/20 03:07 87/45 07/04/20 03:00 83 21 87/45 (59) 07/04/20 02:07 92/50 07/04/20 02:00 80 19 86/49 (61) 100 07/04/20 01:52 87/48 07/04/20 01:49 77 20 98 100 07/04/20 01:37 82/60 07/04/20 01:22 87/50 07/04/20 01:07 85/42 07/04/20 01:00 75 19 94/47 (63) 100 07/04/20 00:00 72 07/04/20 00:00 Bi-pap 15.0 07/04/20 00:00 100 07/04/20 00:00 97.5 71 16 85/42 (56) 99 07/03/20 23:45 72 17 86/44 (58) 100 07/03/20 23:30 73 17 90/40 (57) 99 07/03/20 23:15 71 16 85/44 (58) 100 07/03/20 23:00 70 17 88/39 (55) 100 07/03/20 22:18 74 16 94 100 Intake and Output 07/03/20 07/04/20 19:00 07:00 Intake Total 30 ml 575.325 ml Output Total 10 ml Balance 30 ml 565.325 ml Intake IV Total 30 ml 575.325 ml Output Urine Total 10 ml Microbiology Date/Time Source Procedure Growth Status 07/03/20 07:40 Rectum Received 07/03/20 06:40 Urine,Clean Catch Urine Culture - Preliminary Proteus Mirabilis Gram Negative Kulwinder Resulted 07/03/20 06:40 Nasopharynx SARS-CoV-2 RdRp Gene Assay - Final Complete 07/03/20 06:40 Nasal Nares - Final Complete 07/03/20 06:40 Nasal Nares - Final Complete 07/03/20 06:40 Blood Blood Culture - Preliminary Gram Negative Kulwinder Resulted 07/03/20 06:25 Blood Blood Culture - Preliminary Gram Negative Kulwinder Resulted Laboratory Tests 07/03/20 21:13: POC Whole Blood Glucose 101 07/04/20 00:22: POC Whole Blood Glucose 260H 07/04/20 04:30: White Blood Count 7.0, Red Blood Count 2.77L, Hemoglobin 8.5L, Hematocrit 25.5L, Mean Corpuscular Volume 92, Mean Corpuscular Hemoglobin 30.8, Mean Corpuscular Hemoglobin Concent 33.3, Red Cell Distribution Width 17.6H, Platelet Count 31L, Mean Platelet Volume 12.4H, Neutrophils (%) (Auto) , Lymphocytes (%) (Auto) , Monocytes (%) (Auto) , Eosinophils (%) (Auto) , Basophils (%) (Auto) , Differential Total Cells Counted 100, Neutrophils % (Manual) 77H, Lymphocytes % (Manual) 10L, Monocytes % (Manual) 3, Eosinophils % (Manual) 0, Basophils % (Manual) 0, Band Neutrophils 10H, Platelet Estimate DecreasedL, Platelet Morphology , Giant Platelets Occasional, Hypochromasia 1+, Anisocytosis 1+, Sodium Level 141, Potassium Level 5.7H, Chloride Level 105, Carbon Dioxide Level 16L, Anion Gap 20H, Blood Urea Nitrogen 109H, Creatinine 8.7H, Estimat Glomerular Filtration Rate 6.1, Glucose Level 141H, Calcium Level 6.6L, Phosphorus Level 8.2H, Total Bilirubin 1.0, Direct Bilirubin 0.6H, Aspartate Amino Transf (AST/SGOT) 186H, Alanine Aminotransferase (ALT/SGPT) 42, Alkaline Phosphatase 216H, Troponin I 1.607H, Total Protein 6.7, Albumin 2.4L 07/04/20 06:13: POC Whole Blood Glucose 126H 07/04/20 08:17: POC Whole Blood Glucose 122H 07/04/20 08:20: Lactic Acid Level 3.00H 07/04/20 10:40: POC Whole Blood Glucose 161H 07/04/20 13:18: Lactic Acid Level 3.50H, Random Vancomycin Level 13.7 07/04/20 17:44: POC Whole Blood Glucose 94 Current Medications Medications (Trade) Dose Ordered Sig/Joe Route PRN Reason Start Time Stop Time Status Last Admin Dose Admin Albumin Human 100 ml @ 200 mls/hr PRN PRN IV sbp<90 during hd 07/05/20 08:15 07/05/20 23:59 Albuterol Sulfate (Proventil MDI) 2 puff Q4H PRN INH Shortness of Breath 07/03/20 12:30 10/01/20 12:29 Chlorhexidine Gluconate (Falguni-Hex 2%) 1 applic DAILY@2000 TOPIC 07/04/20 20:00 10/02/20 19:59 Dexamethasone Sodium Phosphate (Decadron 10mg/ ml Inj) 6 mg DAILY IV 07/04/20 09:00 07/12/20 09:01 07/04/20 08:41 Dextrose (Dextrose 50%) 25 ml Q30M PRN IV Hypoglycemia 07/03/20 11:00 10/01/20 10:59 Dextrose (Dextrose 50%) 50 ml Q30M PRN IV Hypoglycemia 07/03/20 11:00 10/01/20 10:59 07/03/20 12:44 Dextrose/Sodium Chloride 1,000 ml @ 30 mls/hr Q24H IV 07/03/20 13:15 08/02/20 13:14 07/04/20 08:04 Dopamine HCl/ Dextrose 250 ml @ 6.21 mls/hr Q24H IV 07/04/20 01:30 07/07/20 01:29 07/04/20 15:09 Heparin Sodium (Porcine) (Heparin Sod 1000 units/ml 10ml) 2,000 unit ONCE ONCE IV 07/05/20 08:15 07/05/20 08:16 Heparin Sodium (Porcine) (Heparin) 1,000 unit POSTHD INJ 07/05/20 08:15 07/05/20 08:16 Insulin Aspart (NovoLOG) BEFORE MEALS AND HS SUBQ 07/03/20 12:30 10/01/20 12:29 07/04/20 11:24 Meropenem 500 mg/ Sodium Chloride 55 ml @ 110 mls/hr DAILY@2100 IVPB 07/04/20 11:00 07/09/20 10:59 07/04/20 10:33 Norepinephrine Bitartrate 4 mg/ Dextrose 250 ml @ 0 mls/hr Q24H IV 07/04/20 08:00 07/07/20 07:59 07/04/20 15:14 Sodium Chloride 1,000 ml @ 500 mls/hr Q2H PRN IVLG sbp<90 during hd 07/05/20 08:15 07/05/20 23:59 [facility] 1 ea DAILY PRN MISC Per rx protocol 07/03/20 11:00 08/02/20 10:59 Assessment/Plan Assessment/Plan Pulmonary Progress Note HPI: Patient is a 69-year-old man with past history of End Stage Renal Disease on HD,admitted with Covid Pneumonia,had Covid symptoms for last weekfor last week. On BiPAP,FIO2 100% in ICU The patient is non verbal. Past Medical History: 1. End-stage renal failure due to diabetic nephropathy. 2. Type 2 diabetes mellitus. 3. COPD. 4. Hypertensive cardiovascular disease. 5. Status post bilateral [id number] amputation. 6. Anemia of chronic kidney disease. Medications: noted Allergies: No known drug allergies. FH: NA SH: NA Review of Systems: NA Objective: Vital signs noted Deferred Covid19 Laboratory:noted CXR:Patchy infiltrates Assessment: COVID-19 pneumonia,possible Community aquired pneumonia Respiratory Failure with hypoxia End-stage renal failure due to diabetic nephropathy Hyperkalemia,acidosis Type 2 diabetes mellitus. Chronic obstructive pulmonary disease. Hypertensive cardiovascular disease. S/p bilateral sqauy-[id number] amputation. Anemia of chronic kidney disease Thrombocytopenia Plan: IV AB Bipap PRN, FIO2 100% BD PRN Decadron PPX HD per Renal Monitor labs Jamari Chambers MD Jul 04, 2020 20:01
--- NOTE | 2020-07-04 21:15 | Consultation ---
DATE OF CONSULTATION: 07/04/2020 CARDIOLOGY CONSULTATION CONSULTING PHYSICIAN: Sunshine Kern M.D. REFERRING PHYSICIAN: Nery Quezada M.D. PATIENT ID: This is a 69-year-old gentleman. HISTORY OF PRESENT ILLNESS: Taken from discussion with Dr. Quezada and reviewing the chart. The patient was brought from the group home where he resides and he is a dialysis patient, but he was not on dialysis several times. He came with profound hyperkalemia. The patient also was in respiratory distress. The patient himself is unable to give any history. PAST MEDICAL HISTORY: Significant for end-stage renal disease, he is on dialysis. He also has dementia and he has diabetes with diabetic nephropathy, diabetic peripheral vascular disease, history of hypertension, COPD, alcohol abuse, and liver cirrhosis. PAST SURGICAL HISTORY: Remarkable for PermCath placement and he has bilateral below-knee amputations. SOCIAL HISTORY: He lives in a group home. He is totally dependent. He is bedridden. HABITS: He used to smoke based on the chart and he used to abuse alcohol as well. REVIEW OF SYSTEMS: Very limited as the patient is unable to speak. He has a BiPAP on. He also is confused and agitated, in restraints. PHYSICAL EXAMINATION: VITAL SIGNS: His blood pressure at the present time is 104/90. His heart rate is from 80 to 100 beats per minute. He has oxygen. He is on BiPAP, and his temperature was 97 based on the most recent record. His oxygen saturation is 94%. HEENT: To the degree able to estimate, he has PERRLA. EOMI. NECK: His neck veins are not distended. He is agitated, moving around. LUNGS: There is scattered wheezing and crackles. HEART: Very distant, regular with occasional skips. ABDOMEN: Soft. There is a G-tube present. EXTREMITIES: The lower extremity, there is BKA bilaterally and there are no acute lesions. NEUROLOGIC: He is moving around. He does not seem to have a stroke. LABORATORY AND DIAGNOSTIC DATA: On his ECG, there is very decreased voltage and there is very prolonged QT interval and sinus bradycardia. The P waves are visualized. So, he has sinus bradycardia, but that EKG was done yesterday. There is no additional EKG done today. On telemetry, he seems to be in a sinus rhythm and his rate approximately 100 beats per minute. His laboratory data significant for WBC 7.1, hemoglobin 8.5, and platelets 31. His chemistry reveals a lactic acid of 3 and his potassium, the latest one was 5.7 and BUN is 100 and creatinine is 8.7. His liver enzymes are elevated. ALT is 42, AST is 186, and bilirubin is 1. His total protein is 6.7 and albumin is 2.4. Troponin 1.607. Chest x-ray is not available for review. He underwent a chest x-ray in the emergency department. His chest x-ray reveals right middle lobe pneumonia. There was a right upper and middle lobe pneumonia based on chest x-ray. His blood gas, which was done and it revealed pH 7.257, pCO2 29, and pO2 78, and there was a base excess of 13, bicarb was 12. His anion gap was 20. IMPRESSION AND RECOMMENDATION: This patient is in shock. He is on 2 vasopressors. He is on dopamine drip and he is on Levophed drip. The patient most likely is in septic shock. He has a wide anion gap and he has evidence of metabolic acidosis based on his blood gas. In addition, he has some hypoxemia, probably due to COVID pneumonia. His troponin is elevated; however, it is not very different from his baseline troponin because we have records on him from other admissions and he had troponin elevation previously when he was admitted there with sepsis also in February of 2019, and at that time troponin was also elevated to 0.330, 0.275, so it is high for sure, but it could be just evidence of multiorgan damage due to his septic shock. His ECG, unfortunately I do not see the old ECG. I am going to order another one today because one I see has very prolonged QT interval, most likely due to hyperkalemia. His voltage is diminished in precordial leads, and I wonder if he has pericardial effusion. I have to look at the chest x-ray, and we are going to track his troponin. He is not a candidate for antiplatelet therapy due to severe thrombocytopenia, which is probably due to combination of shock, maybe he has had DIC and also in addition he has alcoholic liver cirrhosis according to previous progress notes, and so of course, he has no place of any beta-blockers or statins in his situation. I am going to see what the echocardiogram shows, what his serial EKG shows, and hopefully he will be able to get off the pressors with the treatment of his sepsis. This patient's condition is critical, and I spent one hour evaluating him in ICU. Thank you for your consultation. Sunshine Kern M.D. DR: JANES JOB#: [id number] CC:
--- NOTE | 2020-07-04 21:30 | NUR ---
NURSE NOTES: Oral care done. Repositioned for comfort.
--- NOTE | 2020-07-04 22:15 | NUR ---
NURSE NOTES: Sacral skin discoloration, picture taken was done. Pt resist when turned.
--- NOTE | 2020-07-04 23:35 | NUR ---
CODE BLUE: See Code sheet which remains on paper.
--- NOTE | 2020-07-04 23:35 | NUR ---
NURSE NOTES: Pt went to sinus Bradycardia 43/min with pulse as well as desat 60s Atropine 1 amp was given and bagged 100%
--- NOTE | 2020-07-04 23:40 | NUR ---
NURSE NOTES: Pt revived and back to SR
--- NOTE | 2020-07-04 23:45 | NUR ---
NURSE NOTES: Pt went to PEA, code Blue was called and resuscitated.
--- NOTE | 2020-07-04 23:48 | NUR ---
NURSE NOTES: Pts pulse was back ST on the monitor.
[2020-07-05] VITALS (12 sets, daily range): BP systolic 0–132; BP diastolic 0–66
--- NOTE | 2020-07-05 00:37 | Emergency Room Report ---
History of Present Illness General Chief Complaint: Dyspnea/Respdistress Source: Medical Record Present Illness HPI This is a 69-year-old male who was admitted to the hospital for Covid pneumonia and respiratory failure. Subsequently he developed septic shock and was placed on pressors. I responded to a CODE BLUE. Per nursing staff, patient became bradycardic and received atropine. He then became asystolic and epinephrine was given. CPR was also initiated. On my arrival patient already had a pulse. I intubated the patient without any difficulty. Afterward with loss of pulse again and CPR initiated again. Patient received epinephrine. Please see the code sheet for full list of medication and time given. A pulse was regained. Allergies: Coded Allergies: No Known Allergies (Unverified , 09/25/17) COVID-19 Screening Contact w/high risk pt: Yes Experienced COVID-19 symptoms?: Yes COVID-19 Testing performed COATER OPERATOR: No COVID-19 Screening: Positive COVID-19 Nursing Documentation-[facility] Past Medical History Deferred: Pt Cognitively Impaired Past Medical History: No History, Except For Hx Cardiac Problems: Yes - HF, AFIB Hx Hypertension: Yes Hx COPD: Yes Hx Diabetes: Yes Hx Cancer: No Hx Gastrointestinal Problems: Yes - GERD, ETOH ABUSE Hx Dialysis: Yes - [facility] Hx Neurological Problems: Yes Hx Seizures: Yes Physical Exam Vital Signs Date Time Temp Pulse Resp B/P (MAP) Pulse Ox O2 Delivery O2 Flow Rate FiO2 07/03/20 06:20 98.4 49 12 54/21 (32) 94 Non-Rebreather 15.0 07/03/20 12:00 100 Procedures CPR/Code Blue CPR/Code Blue Narrative Please see code sheet for full list of medication and time given. Intubation Intubation : Consent: Emergent Intubation Method: orotracheal Tube Size (cm): 7.5 Breath Sounds after Intubation: equal Intubation Complications: no complications, O2 saturation decreased Post Intubation Xray: Yes Progress/Xray Impression: Bilateral infiltrate. Endotracheal tube at concetta. Attempts: One Patient Tolerated: Well Complications: None Medical Decision Making Diagnostic Impression: Primary Impression: Prolonged QT interval Additional Impressions: Pneumonia due to COVID-19 virus Elevated troponin UTI (urinary tract infection) Qualified Codes: N30.00 - Acute cystitis without hematuria Hyperkalemia Septic shock Cardiac arrest Acute respiratory distress syndrome (ARDS) due to COVID-19 virus ER Course Patient had cardiac arrest and ARDS. Patient intubated. Endotracheal tube was at the concetta. This was pulled back 2 cm. He is currently on 2 pressors. Prognosis poor. Chest X-Ray Diagnostic Results Chest X-Ray Diagnostic Results : Chest X-Ray Ordered: Yes # of Views/Limited/Complete: 1 View Indication: Other - Intubation EP Interpretation: Yes Interpretation: no effusion, no pneumothorax, other - Endotracheal tube at the concetta. Worsening bilateral infiltrates. Impression: Other - s/p intubation. worsening infiltrates Electronically Signed by: Ron Hudson MD Last Vital Signs Date Time Temp Pulse Resp B/P (MAP) Pulse Ox O2 Delivery O2 Flow Rate FiO2 07/04/20 22:30 114 24 120/84 (96) 100 07/04/20 20:00 98.0 07/04/20 18:45 100 07/04/20 16:00 Bi-pap 07/04/20 04:00 15.0 Status: worsened Disposition: ADMITTED INPATIENT Condition: Serious Referrals: Nery Quezada MD (PCP) Ron Hudson MD Jul 05, 2020 00:36
--- NOTE | 2020-07-05 01:06 | Diagnostic Imaging Report ---
EXAM: XR Chest, 1 View CLINICAL HISTORY: LINE TECHNIQUE: Frontal view of the chest. COMPARISON: 02/06/19 FINDINGS: Lungs: Worsening extensive, diffuse bilateral consolidations in the lungs. Pleural space: Unremarkable. No pneumothorax. Heart: Unchanged cardiomegaly. Mediastinum: Unremarkable. Bones/joints: No acute abnormality Tubes, lines and devices: Tube probably representing ETT 1.2 cm above concetta. Tube probably representing enteric tube projects over the midline upper chest at the level of the clavicular heads. Enteric tube appears to be coiled in the neck soft tissues. Right IJ central venous dual-lumen catheter with tip at the superior cavoatrial junction. Other findings: Cardioversion pads on the chest. IMPRESSION: 1. Tube probably representing ETT 1.2 cm above concetta, recommend retraction 3-4cm. 2. Tube probably representing enteric tube coiled in the neck soft tissues and tip projects over the midline upper chest at the level of the clavicular heads. 3. Recommend removal of enteric tube and obtaining chest radiograph to definitively distinguish the ETT from the enteric tube. 4. Right IJ central venous dual-lumen catheter with tip at the superior cavoatrial junction. 5. Worsening extensive, diffuse bilateral consolidations in the lungs. 6. Unchanged cardiomegaly. <MYCVCSECTION> Communications: 07/05/20 01:15 Call Nurse called Nurse Burnette on 07/05 01:15 (-08:00)
--- NOTE | 2020-07-05 01:20 | NUR ---
NURSE NOTES: Called Dr Yaima lynn emergency line to aware md that pt coded, awaiting for md to call back.
--- NOTE | 2020-07-05 01:37 | NUR ---
NURSE NOTES: Dr Quezada called back and was aware that pts was coded x3 as well as pts deteriorating conditionb with orders for Pts DNR as witnessed by RN Liliane Estrada.
[2020-07-05] MEDS ORDERED: Tubing IV Secondary IV ONE (02:29)
[2020-07-05] MEDS ORDERED: NS 275ml ONE (02:29)
--- NOTE | 2020-07-05 02:30 | NUR ---
NURSE NOTES: NURSE NOTES: Pt no BP no pulse, pronounced by ER MD Dr magdaleno,
[2020-07-05] MEDS ORDERED: Heparin Sod 1000 units/ml 10ml IV ONE (08:15)
[2020-07-05] MEDS ORDERED: Heparin 1000 units/ml 1ml Vial INJ SCH (08:15)
--- NOTE | 2020-07-06 12:45 | Discharge Summary ---
Discharge Summary Discharge Summary _ SUMMARY DATE OF ADMISSION: 07/03/2020 DATE OF DISCHARGE: 07/05/2020 REASON FOR ADMISSION: 69 years old male, resident of [facility] facility, with past medical history of end-stage renal disease, on dialysis, hypertension, hyperlipidemia, diabetes mellitus, bilateral BKA, alcoholic liver disease, was sent for evaluation due to bradycardia and hypotension. Patient apparently was found with pulse rate in 40s and blood pressure in 50s systolic. No fevers were reported. No recent Covid testing. Upon evaluation blood pressure was 54/21 , pulse rate 49. Patient was hypoxic requiring 100% nonrebreather mask. Troponin 0.295 , pro BNP above 35,000. EKG revealed sinus bradycardia , no acute ischemic changes Chest x-ray revealed right middle and upper lobe infiltrates. Rapid swab for COVID-19 was positive. LDH 565, ferritin 1808, CRP 18.2 and D-dimer 1.74. Laboratory work-up revealed no leukocytosis ,hemoglobin 9.3 ,hematocrit 27.5, platelet count 62. ABG on 100% nonrebreather mask revealed O2 sat of 90%. Sodium 141 , potassium 6.3. BUN 117, creatinine 1.2. Lactic acid 2.4. Urinalysis grossly positive for UTI. Patient received fluid challenge Patient received dexamethasone and empiric antibiotics. Hyperkalemia was treated with calcium and insulin. Dialysis was arranged . Heart rate and blood pressure improved Patient admitted to monitored floor for further management. CONSULTANTS: weather strip mechanic Dr. Kern pulmonary Dr. Chambers ID specialist Dr. Emir Madsen general surgery Dr Al [facility] COURSE: Patient admitted to monitored floor. Hemodialysis provided with close monitoring of volumes and cardiorenal parameters. Patient noted to have malfunctioning hemodialysis catheter and subsequently undergone insertion of left femoral temporary hemodialysis catheter by surgeon. Blood pressure support provided. Thrombocytopenia was mainly due to alcoholic liver cirrhosis Patient had no family or DPOA Automatic Grinding Machine Operator followed. Elevation of troponin was mild and not much change from the baseline troponin. Per weather strip mechanic, elevation in troponin level could be just the evidence of multiorgan damage due to septic shock. Patient was not a candidate for antiplatelet therapy , given severe thrombocytopenia Echocardiogram was ordered. Supplemental oxygen provided and titrated to keep pulse oximetry above 92%. Patient was on the BiPAP. Antibiotic provided as per ID specialist recommendation . Urine culture revealed Proteus and E. coli ESBL. Blood culture revealed Pseudomonas. Influenza screen test was negative. Patient was on steroids and antibiotics: initially on doxycycline and ceftriaxone for empiric coverage for bacterial pneumonia , which stopped and patient started on meropenem and vancomycin continued. Patient required initiation of pressors due to development of septic shock. Patient started on pressors and transferred to ICU. Patient condition remained critical and guarded. Patient was on Levophed and dopamine, titrated to keep mean arterial blood pressure above 65. BiPAP and pulmonary toilet continued. On 07/05 CODE BLUE was called due to asystolic arrest. ACLS protocol initiated. Patient was intubated. Patient coded again with spontaneous return of pulses and subsequently was made a DNR/DNI status. Patient condition continued deteriorate rapidly. Patient subsequently was pronounced on 07/05 at 2:30 AM. Cause of : cardiopulmonary arrest FINAL DIAGNOSES: Sepsis with septic shock Gram-negative sepsis COVID-19 pneumonia UTI Possible line infection Elevated troponin End-stage renal disease (due to diabetic nephropathy ), on hemodialysis Malfunctioning HD catheter Diabetes mellitus type 2 COPD Hypertensive cardiovascular disease Bilateral BKA Anemia of chronic kidney disease Alcoholic liver cirrhosis Thrombocytopenia I have been assigned to dictate discharge summary for this account. I was not involved in the patient's management. Michelle Bob NP Jul 06, 2020 12:45
--- NOTE | 2020-07-07 12:35 | Diagnostic Imaging Report ---
EXAM: XR Chest, 1 View CLINICAL HISTORY: SOB TECHNIQUE: Frontal view of the chest. COMPARISON: No relevant prior studies available. FINDINGS/IMPRESSION: Large consolidation within the right lung, consistent with severe infiltrate. Follow-up 2 view chest rated up recommended. Chronically increased interstitial markings. The left lung is relatively clear. Cardiomegaly. Calcified aorta. Dual lumen dialysis catheter terminates in the distal SVC.
== END 2020-07-05 02:30 | disposition expired | DRG 720 ==
LOC: EDBD 06:25 → EMR 06:57 → 2W 07:35 → EDBEDREQ 08:30 → ICU 21:57
PROC: 5A1D70Z Performance of Urinary Filtration, Intermittent, Less than 6 Hours Per Day (ICD-10-PCS; 2020-07-03)
PROC: 06HN33Z Insertion of Infusion Device into Left Femoral Vein, Percutaneous Approach (ICD-10-PCS; 2020-07-04)
PROC: 5A1935Z Respiratory Ventilation, Less than 24 Consecutive Hours (ICD-10-PCS; principal; 2020-07-05)
PROC: 0BH17EZ Insertion of Endotracheal Airway into Trachea, Via Natural or Artificial Opening (ICD-10-PCS; 2020-07-05)
PROC: 5A09357 Assistance with Respiratory Ventilation, Less than 24 Consecutive Hours, Continuous Positive Airway Pressure (ICD-10-PCS; 2020-07-05)
DX: A41.50 Gram-negative sepsis, unspecified (principal); U07.1 COVID-19; J12.89 Other viral pneumonia; E11.22 Type 2 diabetes mellitus with diabetic chronic kidney disease; I12.0 Hypertensive chronic kidney disease with stage 5 chronic kidney disease or end stage renal disease; N18.6 End stage renal disease; Z99.2 Dependence on renal dialysis; E87.5 Hyperkalemia; I95.9 Hypotension, unspecified; R65.21 Severe sepsis with septic shock; I46.9 Cardiac arrest, cause unspecified; J96.01 Acute respiratory failure with hypoxia; Z89.512 Acquired absence of left leg below knee; Z89.511 Acquired absence of right leg below knee; D63.1 Anemia in chronic kidney disease; Z79.82 Long term (current) use of aspirin; Z79.4 Long term (current) use of insulin; J44.9 Chronic obstructive pulmonary disease, unspecified; K70.30 Alcoholic cirrhosis of liver without ascites; D61.818 Other pancytopenia; D69.6 Thrombocytopenia, unspecified; E78.5 Hyperlipidemia, unspecified; T82.41XA Breakdown (mechanical) of vascular dialysis catheter, initial encounter; Y84.1 Kidney dialysis as the cause of abnormal reaction of the patient, or of later complication, without mention of misadventure at the time of the procedure; Z66 Do not resuscitate; T82.7XXA Infection and inflammatory reaction due to other cardiac and vascular devices, implants and grafts, initial encounter
CPT/HCPCS: 36415; 71045; 80048; 80053; 80069; 80076; 80202; 81003; 82140; 82550; 82553; 82728; 82803; 82962; 83605; 83615; 83690; 83735; 83880; 84100; 84484; 85007; 85025; 85379; 85610; 85730; 86140; 86706; 86710; 86850; 86900; 86901; 87040; 87081; 87086; 87181; 93005; 94002; 96365; 96375; 99291; J1815; J3490; J7030; U0002